=== PATIENT | female | born 1985 | race Caucasian/White ===

== ENCOUNTER 2023-06-20 19:14 | Outpatient (REF) | payer OTHER, SELFPAY ==
[2023-06-26 10:11] LABS: Age Gdln ACOG Testing Note (.); HPV Aptima Negative (Negative); IGP, Aptima HPV, rfx 16/18,45 Note (.)
== END 2023-06-20 19:15 | disposition home or self-care (01) ==
LOC: LAB 19:14
PROVIDERS: Visit Provider Obstetrics & Gynecology
DX: Z01.419 Encounter for gynecological examination (general) (routine) without abnormal findings (principal)
CPT/HCPCS: 87624; G0145

== ENCOUNTER 2023-07-18 08:52 | Outpatient (OUT) | payer OTHER, SELFPAY ==
--- NOTE | 2023-07-18 | US_ITS ---
The [address] [address] Patient Name: FRANCISCO CARTER MRN: [id number] date: 1985 Sex: F Assigned Patient Location: Current Patient Location: Accession/Order Number: [id number] Exam Date: 07/18/2023 08:54 Report Date: 07/18/2023 11:06 At the request of: TALIA BARRY Procedure: US pelvis w/ transvaginal EXAMINATION: US pelvis w/ transvaginal HISTORY: MENORRHAGIA COMPARISON: No relevant comparison available. FINDINGS: The uterus is normal in size, contour and echotexture measuring 9.0 x 5.0 x 5.9 cm. Anteverted, anteflexed. The endometrium measures 1.3 cm The right ovary measures 3.0 x 2.4 x 2.8 cm. Doppler could not be obtained however there was color flow. The left ovary measures 4.5 x 2.9 x 3.0 cm. Irregular area of anechoic echogenicity measuring 2.7 cm, simple cyst. Normal color and Doppler flow. US/US pelvis w/ transvaginal IMPRESSION: 2.7 cm left ovarian collapsing functional or simple cyst The endometrium measures 1.3 cm, correlate with the menstrual cycle Electronically authenticated by: CHAGO EATON Date: 07/18/2023 11:06
== END 2023-07-18 08:53 | disposition home or self-care (01) ==
LOC: US 08:52
PROVIDERS: Visit Provider Obstetrics & Gynecology
DX: N92.1 Excessive and frequent menstruation with irregular cycle (principal); N83.292 Other ovarian cyst, left side
CPT/HCPCS: 76830; 76856

== ENCOUNTER 2024-05-14 15:00 | Outpatient (OUT) | payer OTHER, SELFPAY ==
--- OUTSIDE RECORDS SUMMARY | 2024-05-14 15:17 | XMS_ITS | CCD ---
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 Phone None, No PCP Unavailable Unavailable Ed Malhotra Unavailable Abundio Galdamez Unavailable Delia Allen Unavailable DYLAN Pinto Primary Care Provider MD Ed Malhotra Attending Provider Abundio Galdamez DO Unavailable [phone] Abundio Galdamez DO Unavailable [phone] GENIN, FRANK A Referring Unavailable GENIN, FRANK A Referring Unavailable ED MALHOTRA Attending Unavailable VIJAYA PINTO Primary Care Unavailable ED MALHOTRA Admitting Unavailable MISC, DR UPTON Attending Unavailable VIJAYA PINTO Primary Care Unavailable MISC, DR UPTON Admitting Unavailable MISC, DR UPTON Consulting Unavailable JAMIL, FRANK A Attending Unavailable Vijaya Sheth Primary Care Provi estephanie GENIN, FRANK A Referring Unavailable GENIN, FRANK A Attending Unavailable GENIN, FRANK A Attending Unavailable GENIN, FRANK A Attending Unavailable GENIN, FRANK A Referring Unavailable GENIN, FRANK A Referring Unavailable GENIN, FRANK A Referring Unavailable MARCELINA MCMANUS Attending Unavailable DIVENCENZO, MARLITA Attending Unavailable GENIN, FRANK A Referring Unavailable DIVENCENZO, MARLITA Attending Unavailable GENIN, FRANK A Referring Unavailable DIVENCENZO, MARLITA Attending Unavailable GENIN, FRANK A Referring Unavailable GENIN, FRANK A Attending Unavailable GENIN, FRANK A Referring Unavailable GENIN, FRANK A Referring Unavailable GENIN, FRANK A Attending Unavailable Millie, Vijaya A Primary Care Unavailable Ed Malhotra Attending Unavailable Ed Malhotra Admitting Unavailable MillieDYLAN Vijaya A Primary Care Provider MD Ed Malhotra Attending Provider [phone] RIVKA KOENIG Referring Unavailable MILLIE, VIJAYA A Primary Care Unavailable AMY FLORES Referring Unavailable MILLIE, VIJAYA A Primary Care Unavailable NICHOL BARRETT Attending Unavailable MILLIE, VIJAYA A Referring Unavailable MILLIE, VIJAYA A Primary Care Unavailable KOENIG, RIVKA Attending Unavailable MILLIE, VIJAYA A Referring Unavailable MILLIE, VIJAYA A Primary Care Unavailable KOENIG, RIVKA Attending Unavailable MILLIE, VIJAYA A Referring Unavailable MILLIE, VIJAYA A Primary Care Unavailable MALI MALHOTRA Attending Unavailable Allergies Allergy Classification Reported Allergen(s) Allergy Type Date of Onset Reaction(s) Facility (14 sources) Penicillins; Translations: [Penicillins] Allergy to drug (finding) 08-20-20 Edema, Itching [facility] Other [place] Repository (11 sources) Sulfonamides (Antibiotic); Translations: [Sulfa Drugs] Allergy to drug (finding) Itching, Edema [facility] Work Phone: (20 sources) Penicillin G; Translations: [PENICILLIN G] Drug Allergy 06-16-20 18 [facility] (20 sources) Sulfacetamide / Sulfur Drug Allergy [facility] Other (3 sources) Sulfacetamide; Translations: [sulfacetamide] Drug Allergy 03-13-20 22 [facility] (3 sources) Sulfur; Translations: [sulfur] Drug Allergy 03-13-20 22 [facility] (16 sources) Penicillins Drug Allergy 08-20-20 22 [facility] Work Phone: (20 sources) Sulfonamides (Antibiotic); Translations: [SULFA (SULFONAMIDE ANTIBIOTICS)] Drug Allergy 06-16-20 18 [facility] Work Phone: (1 source) diphenhydrAMINE Drug Allergy 03-10-20 15 [facility] Repository (1 source) Penicillins Drug allergy (disorder) 03-10-20 15 [facility] Repository (1 source) Sulfonamides (Antibiotic) Drug allergy (disorder) 03-10-20 15 [facility] Repository (6 sources) Sulfamethoxazole / Trimethoprim; Translations: [SULFAMETHOXAZOLE-TR IMETHOPRIM] Drug Allergy 06-16-20 18 Hives, Swelling [facility] (1 source) Penicillin Drug Allergy 11-14-19 24 [facility] Repository Medications Current Medications Medication Drug Class(es) Dates Sig (Normalized) Sig (Original) Acetaminophen (1 source) Start: 11-14-2023 Acetaminophen Active MG PO November 14, 2023 12:00am acetaminophen 300 mg / codeine phosphate 30 mg oral tablet (2 sources) Opioid Agonist Start: 05-03-2023 End: 05-10-2023 take 1 tablet by mouth every four hours as needed acetaminophen-codei ne (TYLENOL-COD #3) 300-30 mg per tablet Indications: Lateral epicondylitis of right elbow Take 1 tablet by mouth every 4 hours as needed for up to 7 days. 8 tablet 0 05/03/2023 05/10/2023 Active Start: 12-20-2022 End: 12-25-2022 take 1 tablet by mouth every four hours as needed acetaminophen-codeine (TYLENOL-CODEINE #3) 300-30 mg per tablet Indications: Right elbow pain , Lateral epicondylitis of both elbows Take 1 tablet by mouth every 4 hours as needed for up to 5 days. 12 tablet 0 12/20/2022 12/25/2022 Active Comment on above: Take 1 tablet by royal th every 4 hours as needed for up to 5 days. Take 1 tablet by royal th every 4 hours as needed for up to 7 days. amitriptyline hydrochloride 25 mg oral tablet (17 sources) Tricyclic Antidepressant Start: 023 amitriptyline (ELAVIL) 25 mg tablet TAKE 1/2 TO 1 TABLET BY MOUTH ONCE DAILY AT BEDTIME 30 30 tablet 2 09/12/2022 Active benzoyl peroxide 0.05 mg/mg / clindamycin 0.01 mg/mg topical gel (1 source) Lincosamide Antibacterial Start: 03-28-2 024 clindamycin-benzoyl peroxide (BENZACLIN) gel Apply 1 Application topically daily as needed (acne). 25 g 0 11/28/2023 Active calcium citrate 950 mg / cholecalciferol 250 unt oral tablet (3 sources) Vitamin D Start: take 2 tablets by mouth three times daily calcium citrate-vitamin D3 (CITRACAL PETITES) 200 mg calcium -250 units tablet Indications: Postsurgical malabsorption , Malnutrition following gastrointestinal surgery , History of gastric bypass TAKE TWO TABLETS BY MOUTH THREE TIMES A DAY 180 tablet 11 08/15/2023 Active citalopram 40 mg oral tablet (20 sources) Serotonin Reuptake Inhibitor Start: End: take 1 tablet by mouth once daily in the morning citalopram (CeleXA) 40 mg tablet Indications: Anxiety and depression TAKE ONE TABLET BY MOUTH ONCE DAILY IN THE MORNING 30 tablet 0 03/21/2023 Active Start: 04-20-2021 CeleXA 40 MG O ral Tablet Quantity: 0 Refills: 0 Ordered: 20-Apr-2021 DO Start : 20-Apr-2021 Active Comment on above: Take 40 mg by mouth once daily. docusate sodium 100 mg oral capsule (3 sources) Start: take 1 capsule by mouth twice daily as needed for constipation docusate sodium (COLACE) 100 mg capsule Indications: Constipation, unspecified constipation type Take 1 capsule (100 mg total) by mouth 2 (two) times a day as needed for constipation. 10 capsule 0 05/30/2023 Active etonogestrel 68 mg drug implant (3 sources) Progestin etonogestreL (NEXPLANON) 68 mg implant 1 each (68 mg total) by subdermal route once. 0 Active fluticasone propionate 0.05 mg/actuat metered dose nasal spray (1 source) Corticosteroid Start: take 1 spray(s) nasal route once daily Fluticasone Propionate Active 2 SPRAY INTRANASAL Daily November 11, 2023 12:00am administer into each nostril Naltrexone (3 sources) Opioid Antagonist Start: 023 take 4.5 mg by mouth once daily naltrexone HCl (NALTREXONE ORAL) Take 4.5 mg by mouth nightly. Back pain 0 10/12/2022 Active Ozempic (0.25 or 0.5 MG/DOSE) (20 sources) Ozempic (0.25 or 0.5 MG/DOSE) Active PNV Plus Multivitamin 27-1 MG (14 sources) take 1 tablet by mouth in the morning PNV Plus Multivitamin 27-1 MG TAKE 1 TABLET BY MOUTH IN THE MORNING Oral for 60 Days Active pregabalin (20 sources) Start: Pregabalin Active MG PO November 14, 2023 12:00am Start: 08-29-2023 take 1 capsule by mo uth in the morning, then take 1 capsule by mouth at bedtime pregabalin (LYRICA) 50 mg capsule Indications: Personal history of fibromyalgia , Chronic low back pain with sciatica, sciatica laterality unspecified, unspecified back pain laterality Take 1 capsule (50 mg total) by mouth in the morning and 1 capsule (50 mg total) before bedtime. 60 capsule 0 08/29/2023 Active Start: 02-28-2023 take 1 capsule by mo uth every twelve hours Lyrica 200 MG 1 capsule Orally Twice a day for 30 days Jan, Active Start: 01-10-2023 take 1 capsule by mo uth every twelve hours Lyrica 200 MG 1 capsule Orally Twice a day for 30 days December, Active Start: 09-12-2022 End: 08-29-2023 take 2 capsules by mouth in the morning, then take 2 capsules by mouth at bedtime pregabalin (LYRICA) 100 mg capsule Indications: fibromyalgia Take 2 capsules (200 mg total) by mouth in the morning and 2 capsules (200 mg total) before bedtime. Indications: disorder characterized by stiff, tender & painful muscles. 0 09/12/2022 08/29/2023 Discontinued (Dose adjustment) Start: 03-27-2022 End: 11-11-2023 take 75 mg by mouth twice daily Pregabalin Discontinue d 75 MG PO Twice daily April 17, 2022 12:00am November 11, 2023 11:30am take 1 capsule by mo uth twice daily pregabalin (LYRICA) 100 mg capsule Take 100 mg by mouth twice daily. 0 Active take 1 capsule by mo uth every twelve hours Lyrica 200 MG 1 capsule Orally Twice a day for 30 days Active Comment on above: Take 100 mg by mouth twice daily. (9 sources) Active Ofjociyv-Ozv-Ti-Fa () 1 mg Tablet (2 sources) Start: 04-17-20 take 1 tablet by mouth once daily Cttpszkp-Ccz-Uk-Fa () 1 mg Tablet Active 1 TAB PO Daily April 17, 2022 12:00am vit 10-iron fum-folic 65-1 mg tablet (3 sources) Start: 02-29-20 take 1 tablet by mouth in the morning vit 10-iron fum-folic 65-1 mg tablet Indications: Postsurgical malabsorption , Malnutrition following gastrointestinal surgery , History of gastric bypass Take 1 tablet by mouth in the morning. 90 tablet 3 02/28/2023 Active syringe with needle (BD LUER-PAYAL SYRINGE) 3 mL 25 x 1 1/2 syringe (3 sources) Start: 05-30-20 syringe with needle (BD LUER-PAYAL SYRINGE) 3 mL 25 x 1 1/2 syringe Indications: Malnutrition following gastrointestinal surgery , History of gastric bypass , Postsurgical malabsorption , Vitamin B12 deficiency 1 SYRG by miscellaneous route every 30 (thirty) days. 3 each 1 05/30/2023 Active tiZANidine 4 mg oral tablet (5 sources) Central alpha-2 Adrenergic Agonist Start: 11-14-19 take 4 mg by mouth twice daily Tizanidine Active 4 MG PO Twice daily 60 30 November 14, 2023 10:24am Start: 11-11-2023 End: 11-14-2023 Tizanidine Discontinued MG P O November 11, 2023 12:00am November 14, 2023 10:25am Start: 02-21-2023 tiZANidine (ZA NAFLEX) 4 mg tablet TAKE 12 TO 1 TABLET BY MOUTH ONCE DAILY AT BEDTIME 30 0 02/21/2023 Active topiramate 100 mg oral tablet (20 sources) Start: 03-04-2023 take 1 tablet by mouth once daily topiramate (TOPAMAX) 100 mg tablet Indications: Migraine without aura and without status migrainosus, not intractable Take 1 tablet (100 mg total) by mouth nightly. 90 tablet 2 03/04/2023 Active Start: 11-07-2021 End: 11-11-2023 Topiramate Discontinued 50 M G PO As Directed November 07, 2021 1:00am November 11, 2023 11:32am Start: 04-20-2021 Topamax 100 MG Oral Tablet Quantity: 0 Refills: 0 Ordered: 20-Apr-2021 DO Start : 20-Apr-2021 Active Start: 04-20-2021 take 1 tablet by royal th once daily Topamax 50 MG Oral Tablet TAKE 1 TABLET DAILY. Quantity: 0 Refills: 0 Ordered: 20-Apr-2021 DO Start : 20-Apr-2021 Active vitamin B12 (8 sources) Vitamin B12 Start: 11-11-2023 Cyanocobalamin (Vitamin B-12) Active MCG IM November 11, 2023 12:00am Start: 05-30-2023 cyanocobalamin (VITAMIN B-12) 1,000 mcg/mL injection Indications: Malnutrition following gastrointestinal surgery , History of gastric bypass , Postsurgical malabsorption , Vitamin B12 deficiency Inject 1 mL (1,000 mcg total) into the appropriate muscle every 30 (thirty) days. 3 mL 1 05/30/2023 Active Cyanocobalamin 1 000 MCG/ML INJECT 1 ML (1,000 MCG TOTAL) INTO THE APPROPRIATE MUSCLE EVERY 30 (THIRTY) DAYS. Injection for 30 Days Active zinc gluconate 50 mg oral tablet (2 sources) Start: 11-28-2023 take 1 tablet by mouth in the morning zinc gluconate 50 mg tablet Take 1 tablet (50 mg total) by mouth in the morning. 90 tablet 3 11/28/2023 Active Completed/Discontinued Medications Medication Drug Class(es) Dates Sig (Normalized) Sig (Original) [id number] 200 actuat albuterol 0.09 mg/actuat metered dose inhaler (20 sources) beta2-Adrenergic Agonist Start: 08-06-2019 take 2 puff(s) by inhalation every four hours as needed Albuterol Sulfate HFA 108 (90 Base) MCG/ACT 2 puffs as needed Inhalation every 4 hrs Aug, Not-Taking Start: 08-06-2019 take 2 puff(s) by in halation every four hours as needed Albuterol Sulfate HFA 108 (90 Base) MCG/ACT 2 puffs as needed Inhalation every 4 hrs Aug, Not-Taking atenolol 25 mg oral tablet (20 sources) beta-Adrenergic Lashonda Start: 11-07-2021 End: 11-11-2023 take 25 mg by mouth once daily Atenolol Discontinued 25 MG PO Daily November 07, 2021 1:00am November 11, 2023 11:30am Start: 10-04-2021 Atenolol 25 MG Oral Tablet Quantity: 0 Refills: 0 Ordered: 04-Oct-2021 DO Start : 04-Oct-2021 Active Comment on above: Take 25 mg by mouth once daily. 12 hr buPROPion hydrochloride 150 mg extended release oral tablet (12 sources) Aminoketone Start: End: take 150 mg by mouth once daily Bupropion Hcl Discontinued 150 MG PO Daily November 07, 2021 1:00am November 07, 2021 10:33am Start: 04-20-2021 take 1 tablet by royal th once daily Wellbutrin XL 150 MG Oral Tablet Extended Release 24 Hour TAKE 1 TABLET DAILY DIRECTED. Quantity: 0 Refills: 0 Ordered: 20-Apr-2021 DO Start : 20-Apr-2021 Active cyclobenzaprine hydrochloride 10 mg oral tablet (20 sources) Muscle Relaxant Start: 04-20-2021 take 1 tablet by mouth three times daily as needed Cyclobenzaprine HCl - 10 MG Oral Tablet TAKE 1 TABLET 3 TIMES DAILY NEEDED. Quantity: 0 Refills: 0 Ordered: 20-Apr-2021 DO Start : 20-Apr-2021 Active take 1 tablet by royal every twenty-four hours Cyclobenzaprine HCl 10 MG 1 tablet at bedtime as needed Orally Once a day Not-Taking diclofenac sodium 0.01 mg/mg topical gel (9 sources) Nonsteroidal Anti-inflammatory Drug Start: 05-28-2022 Diclofenac Sodium 1 % apply 1 gram to bilateral elbows Externally 2-4 times a day for 30 days May, Not-Taking doxycycline hyclate 100 mg oral capsule (1 source) Tetracycline-class Drug Start: 11-11-2023 End: 11-14-2023 take 100 mg by mouth twice daily Doxycycline Hyclate Discontinued 100 MG PO Twice daily 21 06November 11, 2023 12:00am November 14, 2023 9:16am EPINEPHrine 0.01 mg/ml / lidocaine hydrochloride 10 mg/ml injectable solution (1 source) Antiarrhythmic, alpha-Adrenergic Agonist, beta-Adrenergic Agonist, Catecholamine, Amide Local Anesthetic Start: 05-03-2023 End: 05-03-2023 lidocaine 1%-EPINEPHrine 1:100,000 2 mL injection famotidine 20 mg oral tablet (11 sources) Histamine-2 Receptor Antagonist Start: 04-20-2021 take 1 tablet by mouth twice daily Pepcid 20 MG Oral Tablet TAKE 1 TABLET TWICE DAILY. Quantity: 0 Refills: 0 Ordered: 20-Apr-2021 DO Start : 20-Apr-2021 Active 10 ml lidocaine hydrochloride 10 mg/ml injection (1 source) Antiarrhythmic, Amide Local Anesthetic Start: 12-20-2022 End: 12-20-2022 lidocaine (PF) 10 mg/mL (1 %) 2 mL injection (XYLOCAINE) Start: 12-20-2022 End: 12-20-2022 lidocaine (PF) 10 mg/mL (1 % ) 2 mL injection (XYLOCAINE) metFORMIN hydrochloride 500 mg oral tablet (2 sources) Biguanide Start: 11-07-2021 End: 03-13-2022 Metformin Discontinued 500 MG PO As Directed November 07, 2021 1:00am March 13, 2022 7:22am methylPREDNISolone 4 mg oral tablet (20 sources) Corticosteroid Start: 11-11-2023 End: 11-14-2023 take 1 tablet by mouth once Methylprednisolone (Medrol (Michael)) 4 mg tablets,dose pack Discontinued 0 PO per package directions 1 November 11, 2023 12:00am November 14, 2023 9:16am PO PER PKG DIR for 6 days Start: 02-14-2023 methylPREDNISo lone (MEDROL DOSE-PACK) 4 mg Dose-Pack As Instructed per package 1 tablet 0 02/14/2023 Active Start: 03-19-2022 Medrol 4 MG as directed Orally for 6 days Mar, Not-Taking Comment on above: As Instructed per shayy haji naproxen 375 mg oral tablet (20 sources) Nonsteroidal Anti-inflammatory Drug Start: 09-11-2021 End: 11-11-2023 Naproxen Discontinued 375 MG PO As Directed November 07, 2021 1:00am November 11, 2023 11:30am omeprazole 20 mg delayed release oral capsule (20 sources) Proton Pump Inhibitor Start: 11-07-2021 End: 11-11-2023 Omeprazole Discontinued 20 MG PO As Directed November 07, 2021 1:00am November 11, 2023 11:30am Start: 04-20-2021 take 1 tablet by royal twice daily [facility] Omeprazole 20 MG Oral Tablet Delayed Release Take 1 tablet twice daily Quantity: 0 Refills: 0 Ordered: 20-Apr-2021 DO Start : 20-Apr-2021 Active Start: 03-30-2021 take 1 capsule by mo [facility] once daily Omeprazole 40 MG 1 capsule 30 minutes before morning meal Orally Once a day Mar, Active Comment on above: Take 40 mg by mouth once daily. vits 4/iron fum/folic (-H ORAL) (16 sources) vits 4/ iron fum/folic (-H ORAL) Take by mouth once daily. 0 Active Comment on above: Take by mouth once d aily. 20 ml ropivacaine hydrochloride 5 mg/ml injection (1 source) Amide Local Anesthetic Start: 05-03-2023 End: 05-03-2023 ROPivacaine (PF) 5 mg/mL (0.5 %) 4 mL injection (NAROPIN) 0.25 mg, 0.5 mg dose 1.5 ml semaglutide 1.34 mg/ml pen injector (4 sources) Start: 11-07-2021 End: 03-13-2022 Semaglutide (Ozempic) 0.25 mg or 0.5 mg(2 mg/1.5 mL) pen injector Discontinued 0.25 MG SUBCUT As Directed November 07, 2021 1:00am March 13, 2022 7:22am Start: 10-04-2021 Ozempic (0.25 or 0.5 MG/DOSE) 2 MG/1.5ML Subcutaneous Solution Pen-injector Quantity: 0 Refills: 0 Ordered: 04-Oct-2021 DO Start : 04-Oct-2021 Active triamcinolone acetonide 40 mg/ml injectable suspension (20 sources) Corticosteroid Start: 03-19-2022 Kenalog-40 Mar, 40 mg Start: 09-11-2021 Kenalog -40 mg Sep, 40 mg Start: 03-30-2021 Kenalog -40 mg Mar, 40 mg ubrogepant 50 mg oral tablet (2 sources) Start: 11-07-2021 End: 11-11-2023 Ubrogepant (Ubrelvy) 50 mg t ablet Discontinued 50 MG PO As Directed November 07, 2021 1:00am November 11, 2023 11:32am Problems Active Problems Problem Classification Problem Date Documented Da te Episodic/Chronic Administrative/social admission (4 sources) Patient encounter status; Translations: [Dietary counseling and surveillance] Onset: 02-20-2021 Resolved: 10-02-2021 10-02-2021 Episodic Asthma (11 sources) Exercise-induced asthma; Translations: [Exercise induced bronchospasm] Chronic Complications of surgical procedures or medical care (11 sources) Post-surgical malabsorption; Translations: [Postsurgical malabsorption, not elsewhere classified] Onset: 02-28-2023 08-29-2023 Chronic Diabetes mellitus without complication (11 sources) Prediabetes; Translations: [Other abnormal glucose] Episodic Headache; including migraine (16 sources) Migraine; Translations: [Migraine, unspecified, without mention of intractable migraine without mention of status migrainosus] Onset: 11-03-2020 10-19-2021 Chronic Hypertension complicating ; childbirth and the puerperium (3 sources) Chronic hypertension complicating AND/OR reason for care during ; Translations: [Unspecified pre-existing hypertension complicating , unspecified trimester] Onset: 08-11-2018 Resolved: 11-03-2020 11-03-2020 Chronic Menstrual disorders (11 sources) Menorrhagia; Translations: [Excessive or frequent menstruation] Chronic Other connective tissue disease (11 sources) Tendinitis; Translations: [Enthesopathy of unspecified site] Episodic Other connective tissue disease (13 sources) Fibromyalgia; Translations: [Myalgia and myositis, unspecified] Episodic Other connective tissue disease (11 sources) Disease suspected; Translations: [Other symptoms involving nervous and musculoskeletal systems] Episodic Other connective tissue disease (5 sources) Lateral epicondylitis of bilateral humerus; Translations: [Lateral epicondylitis, right elbow] Episodic Other gastrointestinal disorders (12 sources) History of bariatric surgical procedure; Translations: [Bariatric surgery status] 11-29-2023 Episodic Other gastrointestinal disorders (1 source) Drug-induced constipation; Translations: [Drug induced constipation] 08-29-2023 Episodic Other gastrointestinal disorders (6 sources) History of bypass of stomach; Translations: [Bariatric surgery status] Onset: 02-28-2023 08-29-2023 Episodic Other lower respiratory disease (11 sources) Snoring; Translations: [Other respiratory abnormalities] Episodic Other nervous system disorders (20 sources) Chronic pain; Translations: [Other chronic pain] 11-12-2023 Chronic Other nervous system disorders (13 sources) Other chronic pain; Translations: [Other chronic pain] Onset: 08-11-2018 Resolved: 04-24-2022 Chronic Other non-traumatic joint disorders (19 sources) Hip pain; Translations: [Pain in unspecified hip] Episodic Other non-traumatic joint disorders (2 sources) Pain in right hip; Translations: [Pain in joint, pelvic region and thigh] Onset: 11-14-2023 11-14-2023 Episodic Other nutritional; endocrine; and metabolic disorders (11 sources) Metabolic syndrome X; Translations: [Dysmetabolic syndrome X] Chronic Other nutritional; endocrine; and metabolic disorders (20 sources) Severe obesity; Translations: [Morbid (severe) obesity due to excess calories] Chronic Other nutritional; endocrine; and metabolic disorders (20 sources) Morbid obesity; Translations: [Body mass index (BMI) 60.0-69.9, adult] Chronic Other nutritional; endocrine; and metabolic disorders (1 source) Morbid (severe) obesity due to excess calories Onset: 03-19-2022 Resolved: 03-19-2022 Chronic Other nutritional; endocrine; and metabolic disorders (1 source) Excess panniculus of abdomen; Translations: [Localized adiposity] 11-28-2023 Chronic Other nutritional; endocrine; and metabolic disorders (1 source) Localized adiposity; Translations: [Localized adiposity] 11-28-2023 Chronic Other nutritional; endocrine; and metabolic disorders (1 source) Localized adiposity; Translations: [Localized adiposity] Onset: 11-28-2023 Chronic Other skin disorders (2 sources) Acne; Translations: [Acne, unspecified] Onset: 11-29-2023 11-29-2023 Episodic Other upper respiratory infections (1 source) Chronic sinusitis, unspecified; Translations: [Unspecified sinusitis (chronic)] 11-11-2023 Chronic Residual codes; unclassified (4 sources) Sleep apnea; Translations: [Sleep apnea, unspecified] Onset: 02-15-2022 Chronic Residual codes; unclassified (2 sources) Sleep apnea, unspecified; Translations: [Sleep apnea, unspecified type] Onset: 08-20-2022 Chronic Residual codes; unclassified (1 source) Other sleep apnea; Translations: [OTHER SLEEP APNEA] Onset: 05-08-2022 Chronic Spondylosis; intervertebral disc disorders; other back problems (20 sources) Intervertebral disc prolapse; Translations: [Displacement of intervertebral disc, site unspecified, without myelopathy] Onset: 09-14-2021 Resolved: 04-24-2022 Chronic Thyroid disorders (20 sources) Polina thyroiditis; Translations: [Chronic lymphocytic thyroiditis] Onset: 11-03-2020 08-29-2023 Chronic Unclassified (3 sources) GASTR-ESOPH RFLX DS ESPHGTS W/O BLD; Translations: [GASTR-ESOPH RFLX DS ESPHGTS W/O BLD] Onset: 05-08-2022 Unclassified (1 source) Elevation of levels of liver transaminase levels; Translations: [Elevation of levels of liver transaminase levels] Onset: 05-30-2023 Unclassified (1 source) Post-op Onset: 11-28-2023 Past or Other Problems Problem Classification Problem Date Documented Da te Episodic/Chronic Anxiety disorders (17 sources) Mixed anxiety and depressive disorder; Translations: [Dysthymic disorder] Onset: 1 Resolved: 3 Chronic Esophageal disorders (14 sources) Gastroesophageal reflux disease; Translations: [Esophageal reflux] Onset: 1 Resolved: 3 02-28-2023 Chronic Essential hypertension (6 sources) Benign essential hypertension; Translations: [Benign essential hypertension] Onset: 2 Resolved: 3 03-04-2023 Chronic Fluid and electrolyte disorders (3 sources) Dehydration; Translations: [Dehydration] Onset: 3 12-10-2022 Episodic Mood disorders (3 sources) Mood disorders Onset: 3 03-04-2023 Nutritional deficiencies (3 sources) Cobalamin deficiency; Translations: [Deficiency of other specified B group vitamins] Onset: 3 05-30-2023 Episodic Other complications of (3 sources) Thyroid disease in mother complicating , childbirth AND/OR puerperium; Translations: [Endocrine, nutritional and metabolic diseases complicating , unspecified trimester] Onset: 8 Resolved: 1 11-03-2020 Episodic Other complications of (3 sources) Depressive disorder in mother complicating ; Translations: [Other mental disorders complicating , unspecified trimester] Onset: 8 Resolved: 1 11-03-2020 Episodic Other complications of (3 sources) Anxiety in ; Translations: [Other mental disorders complicating , unspecified trimester] Onset: 8 Resolved: 1 11-03-2020 Episodic Other connective tissue disease (4 sources) Lateral epicondylitis, left elbow; Translations: [Lateral epicondylitis of both elbows] Onset: 2 Resolved: 2 Episodic Other connective tissue disease (5 sources) Lateral epicondylitis, right elbow; Translations: [Lateral epicondylitis of both elbows] Onset: 2 Resolved: 2 Episodic Other connective tissue disease (2 sources) Fibromyalgia; Translations: [Fibromyalgia] Onset: 2 Episodic Other connective tissue disease (12 sources) Lateral epicondylitis of right humerus; Translations: [Lateral epicondylitis, right elbow] Onset: 3 Episodic Other connective tissue disease (4 sources) H/O: musculoskeletal disease; Translations: [Personal history of other diseases of the musculoskeletal system and connective tissue] Onset: 1 08-29-2023 Episodic Other connective tissue disease (3 sources) Muscle pain; Translations: [Myalgia, unspecified site] Onset: 1 11-03-2020 Episodic Other connective tissue disease (3 sources) Tendinitis of left elbow; Translations: [Other enthesopathies, not elsewhere classified] Onset: 1 Resolved: 2 10-02-2021 Episodic Other connective tissue disease (1 source) Personal history of other diseases of the musculoskeletal system and connective tissue; Translations: [Personal history of other diseases of the musculoskeletal system and connective tissue] Onset: 1 Episodic Other ear and sense organ disorders (3 sources) Pain of ear structure; Translations: [Otalgia, bilateral] Onset: 1 Resolved: 2 10-02-2021 Episodic Other gastrointestinal disorders (3 sources) Constipation; Translations: [Constipation, unspecified] Onset: 3 05-30-2023 Episodic Other gastrointestinal disorders (2 sources) Bariatric surgery status; Translations: [Bariatric surgery status] Onset: 3 Episodic Other liver diseases (3 sources) Enzyme level - finding; Translations: [Elevated transaminase level] Onset: 3 05-30-2023 Episodic Other nervous system disorders (3 sources) H/O: migraine; Translations: [Personal history of other diseases of the nervous system and sense organs] Onset: 8 Resolved: 1 11-03-2020 Episodic Other non-traumatic joint disorders (2 sources) Pain in unspecified hip Onset: 2 Resolved: 2 Episodic Other non-traumatic joint disorders (4 sources) Pain in left elbow; Translations: [Left elbow pain] Onset: 2 Resolved: 2 Episodic Other non-traumatic joint disorders (17 sources) Pain in elbow; Translations: [Pain in left elbow] Onset: 3 Episodic Other non-traumatic joint disorders (2 sources) Pain in right elbow; Translations: [Right elbow pain] Onset: 2 Episodic Other nutritional; endocrine; and metabolic disorders (14 sources) Body mass index 40+ - severely obese; Translations: [Morbid obesity] Onset: 3 Resolved: 3 03-04-2023 Chronic Other nutritional; endocrine; and metabolic disorders (3 sources) Obese class I; Translations: [Obesity, unspecified] Onset: 3 Resolved: 3 05-30-2023 Chronic Other nutritional; endocrine; and metabolic disorders (3 sources) Weight gain; Translations: [Abnormal weight gain] Onset: 2 Resolved: 3 03-04-2023 Episodic Other upper respiratory infections (7 sources) Acute maxillary sinusitis; Translations: [Acute maxillary sinusitis, unspecified] Onset: 1 Resolved: 2 10-02-2021 Episodic Residual codes; unclassified (3 sources) At risk of disease; Translations: [Other specified personal risk factors, not elsewhere classified] Onset: 3 12-10-2022 Episodic Spondylosis; intervertebral disc disorders; other back problems (20 sources) Spasm of back muscles; Translations: [Other symptoms referable to back] Onset: 8 Resolved: 2 Episodic Sprains and strains (3 sources) Sprain of left wrist; Translations: [Unspecified sprain of left wrist, initial encounter] Onset: 1 Resolved: 2 10-02-2021 Episodic Unclassified (20 sources) Other low back pain; Translations: [Other low back pain] Unclassified (6 sources) Other low back pain M54.59 Onset: 2 Resolved: 2 Unclassified (1 source) GASTR-ESOPH RFLX DS ESPHGTS W/O BLD; Translations: [GASTR-ESOPH RFLX DS ESPHGTS W/O BLD] Onset: 2 Results Test Name Value Interpretation Reference Range Facility CALCIUMon 11-25-2023 Calcium [Mass/Vol] 8.8 mg/dL Normal 8.5-10.5 [facility] Comment on above: Performed By: #### C BCA, LIVR, 68888-9, 2498-4, 2731-8, 2284- 8, 2132-9, 58829-2 #### [facility] ([id number]) [address] [place] [address], [address] [place] [address] CBC AND AUTO DIFFon 11-25-19 24 ABSOLUTE BASOPHIL 0.0 X10E9/L Normal 0.0-0.2 [facility] Comment on above: Performed By: #### C BCA, LIVR, 59950-7, 2498-4, 2731-8, 2284- 8, 2132-9, 97879-7 #### [facility] ([id number]) [facility], [address] [place] [address] ABSOLUTE NEUTROPHIL 3.8 X10E9/L Normal 1.5-6.6 [facility] Comment on above: Performed By: #### C BCA, LIVR, 22308-3, 2498-4, 2731-8, 2284- 8, 2132-9, 98843-9 #### [facility] ([id number]) [address], [address] [place] [address] Basophils/100 WBC (Bld) 0.4 % Normal [facility] Comment on above: Performed By: #### C BCA, LIVR, 77215-3, 2498-4, 2731-8, 2284- 8, 2132-9, 92918-2 #### [facility] ([id number]) [address], [address] [place] [address] Eosinophils (Bld) [#/Vol] 0.1 10*3/uL Normal 0.0-0.4 [facility] Comment on above: Performed By: #### C BCA, LIVR, 33609-3, 2498-4, 2731-8, 2284- 8, 2132-9, 64939-4 #### [facility] ([id number]) [address], [address] [place] [address] Eosinophils/100 WBC (Bld) 1.9 % Normal [facility] Comment on above: Performed By: #### C BCA, LIVR, 83455-7, 2498-4, 2731-8, 2284- 8, 2132-9, 65824-9 #### [facility] ([id number]) [address], [address] [place] [address] Erythrocyte distribution width (RBC) [Ratio] 13.9 % Normal 11.5-15.0 [facility] Comment on above: Performed By: #### C BCA, LIVR, 49720-0, 2498-4, 2731-8, 2284- 8, 2132-9, 01822-9 #### [facility] ([id number]) [address], [address] [place] [address] Hematocrit (Bld) [Volume fraction] 37.1 % Normal 35-47 [facility] Comment on above: Performed By: #### C BCA, LIVR, 21905-5, 2498-4, 2731-8, 2284- 8, 2132-9, 79788-0 #### [facility] ([id number]) [address], [address] [place] [address] Hemoglobin (Bld) [Mass/Vol] 12.2 g/dL Normal 11.7-15.5 [facility] Comment on above: Performed By: #### C BCA, LIVR, 39669-2, 2498-4, 2731-8, 2284- 8, 2132-9, 92237-9 #### [facility] ([id number]) [address] [address] [place] [address] Lymphocytes (Bld) [#/Vol] 1.4 10*3/uL Normal 1.0-3.5 [facility] Comment on above: Performed By: #### C BCA, LIVR, 77244-2, 2498-4, 2731-8, 2284- 8, 2132-9, 96437-2 #### [facility] ([id number]) [address] [address] [place] [address] Lymphocytes/100 WBC (Bld) 25.7 % Normal [facility] Comment on above: Performed By: #### C BCA, LIVR, 92321-0, 2498-4, 2731-8, 2284- 8, 2132-9, 16448-5 #### [facility] ([id number]) [address] [address] [place] [address] MCH (RBC) [Entitic mass] 30.0 pg Normal 27-34 [facility] Comment on above: Performed By: #### C BCA, LIVR, 60842-5, 2498-4, 2731-8, 2284- 8, 2132-9, 59227-1 #### [facility] ([id number]) [address], [address] [place] [address] MCHC (RBC) [Mass/Vol] 33.0 g/dL Normal 32-36 [facility] Comment on above: Performed By: #### C BCA, LIVR, 87891-2, 2498-4, 2731-8, 2284- 8, 2132-9, 23757-8 #### [facility] ([id number]) [address], [facility] [address] [place] [address] MCV (RBC) [Entitic vol] 91 fL Normal 80-100 [facility] Comment on above: Performed By: #### C BCA, LIVR, 93408-6, 2498-4, 2731-8, 2284- 8, 2132-9, 35250-6 #### [facility] ([id number]) [address], [address] [place] [address] Monocytes (Bld) [#/Vol] 0.3 10*3/uL Normal 0-0.9 [facility] Comment on above: Performed By: #### C BCA, LIVR, 38065-9, 2498-4, 2731-8, 2284- 8, 2132-9, 95739-1 #### [facility] ([id number]) [address], [address] [place] [address] Monocytes/100 WBC (Bld) 5.0 % Normal [facility] Comment on above: Performed By: #### C BCA, LIVR, 10843-4, 2498-4, 2731-8, 2284- 8, 2132-9, 69875-1 #### [facility] ([id number]) [address], [address] [place] [address] Neutrophils/100 WBC (Bld) 67.0 % Normal [facility] Comment on above: Performed By: #### C BCA, LIVR, 16627-9, 2498-4, 2731-8, 2284- 8, 2132-9, 73368-7 #### [facility] ([id number]) [address], [address] [place] [address] Platelet mean volume (Bld) [Entitic vol] 8.3 fL Normal 7-12 [facility] Comment on above: Performed By: #### C BCA, LIVR, 85382-5, 2498-4, 2731-8, 2284- 8, 2132-9, 40801-1 #### [facility] ([id number]) [address] [address] [place] [address] Platelets (Bld) [#/Vol] 309 10*3/uL Normal 150-450 [facility] Comment on above: Performed By: #### C BCA, LIVR, 03619-5, 2498-4, 2731-8, 2284- 8, 2132-9, 78653-4 #### [facility] ([id number]) [address] [address] [place] [address] RBC COUNT 4.08 X10E12/L Normal 3.80-5.20 [facility] Comment on above: Performed By: #### C BCA, LIVR, 68302-8, 2498-4, 2731-8, 2284- 8, 2132-9, 10901-3 #### [facility] ([id number]) [address] [address] [place] [address] WBC (Bld) [#/Vol] 5.6 10*3/uL Normal 4.0-11.0 [facility] Comment on above: Performed By: #### C BCA, LIVR, 58865-1, 2498-4, 2731-8, 2284- 8, 2132-9, 01867-7 #### [facility] ([id number]) [address], [address] [place] [address] Copper [Mass/Vol]on 11-25-19 24 COPPER 88 ug/dL Normal 80-155 [facility] Comment on above: Result Comment: NOTE This test was developed and its performance characteristics determined by [facility] [place] ([facility]). It has not been cleared or approved by the FDA. [facility] is regulated under CLIA as qualified to perform high-complexity testing. This test is used for clinical purposes. It should not be regarded as investigational or for research. Test Performed By: [place] [address] Car Construction Superintendent: Travon Jose III, M.D. CLIA #[id number] Performed By: #### L IVR, TSHR #### [facility] ([id number]) [address] [facility], [address] [place] [address] Folate [Mass/Vol]on 11-25-19 24 FOLIC ACID >25.0 Normal >5.8 [facility] Comment on above: Result Comment: NEW REFERENCE RANGE Performed By: #### C BCA, LIVR, 24106-0, 2498-4, 2731-8, 2284-8, 2132-9, 91268-3 #### [facility] ([id number]) [address], [address] [place] [address] IRONon 11-25-2023 Iron [Mass/Vol] 109 ug/dL Normal 50-170 [facility] Comment on above: Performed By: #### C BCA, LIVR, 17491-3, 2498-4, 2731-8, 2284- 8, 2132-9, 87915-4 #### [facility] ([id number]) [address] [facility], [address] [place] [address] LIVER PANELon 11-25-2023 Albumin [Mass/Vol] 3.9 g/dL Normal 3.2-5.3 [facility] Comment on above: Performed By: #### C BCA, LIVR, 75316-9, 2498-4, 2731-8, 2284- 8, 2132-9, 90534-1 #### [facility] ([id number]) [address], [address] [place] [address] ALP [Catalytic activity/Vol] 70 U/L Normal 39-130 [facility] Comment on above: Performed By: #### C BCA, LIVR, 09724-3, 2498-4, 2731-8, 2284- 8, 2132-9, 38564-9 #### [facility] ([id number]) [address], [address] [place] [address] ALT [Catalytic activity/Vol] 37 U/L High 0-31 [facility] Comment on above: Performed By: #### C BCA, LIVR, 44153-3, 2498-4, 2731-8, 2284- 8, 2132-9, 03096-9 #### [facility] ([id number]) [address], [address] [place] [address] AST [Catalytic activity/Vol] 19 U/L Normal 0-41 [facility] Comment on above: Performed By: #### C BCA, LIVR, 28528-7, 2498-4, 2731-8, 2284- 8, 2132-9, 26626-3 #### [facility] ([id number]) [address], [address] [place] [address] Bilirubin [Mass/Vol] 0.4 mg/dL Normal 0.3-1.2 [facility] Comment on above: Performed By: #### C BCA, LIVR, 57715-2, 2498-4, 2731-8, 2284- 8, 2132-9, 00902-8 #### [facility] ([id number]) [address], [address] [place] [address] Bilirubin.direct [Mass/Vol] 0.1 mg/dL Normal 0.0-0.4 [facility] Comment on above: Performed By: #### C BCA, LIVR, 38713-7, 2498-4, 2731-8, 2284- 8, 2132-9, 12836-6 #### [facility] ([id number]) [address], [address] [place] [address] Protein [Mass/Vol] 6.8 g/dL Normal 6.0-8.0 [facility] Comment on above: Performed By: #### C BCA, LIVR, 91144-3, 2498-4, 2731-8, 2284- 8, 2132-9, 14232-7 #### [facility] ([id number]) [address], [address] [place] [address] Parathyrin.intact [Mass/Vol] on 11-25-2023 PTH INTACT 43 pg/mL Normal 12-88 [facility] Comment on above: Performed By: #### C BCA, LIVR, 91744-8, 2498-4, 2731-8, 2284- 8, 2-9, 51203-2 #### [facility] ([id number]) [address], [address] [place] [address] VITAMIN B12on 11-25-2023 Cobalamin (Vitamin B12) [Mass/Vol] 482 pg/mL Normal 180-914 [facility] Comment on above: Performed By: #### C BCA, LIVR, 61002-0, 2498-4, 2731-8, 2284- 8, 2-9, 49088-6 #### [facility] ([id number]) [address], [address] [place] [address] Vitamin D+Metabolites [Mass/ Vol]on 11-25-2023 VITAMIN D 25 HYD TOT 37.6 ng/mL Normal 30-100 [facility] Comment on above: Result Comment: Vitamin D status 25 [place] Vitamin D Deficiency <20 ng/mL Insufficiency 20-29 ng/mL Sufficiency 30-100 ng/mL Toxicity >100 ng/mL NOTE: A pediatric reference range has not been established by the indoor landscape architect of this kit. The [place] [employer] recommends a Vitamin D level of = or >20ng/mL in infants and children. Performed By: #### C BCA, LIVR, 51986-3, 2498-4, 2731-8, 2284-8, 2132-9, 76494-0 #### [facility] ([id number]) [address] [facility], [address] [place] [address] Zinc [Mass/Vol]on 11-25-2023 ZINC 59 ug/dL Low 60-120 [facility] Comment on above: Result Comment: NOTE This test was developed and its performance characteristics determined by [facility] [place] ([facility]). It has not been cleared or approved by the FDA. [facility] is regulated under CLIA as qualified to perform high-complexity testing. This test is used for clinical purposes. It should not be regarded as investigational or for research. Test Performed By: [facility] [address] [place] [address] Car Construction Superintendent: Travon Jose III, M.D. CLIA #[id number] Performed By: #### L IVR, TSHR #### [facility] ([id number]) [address] [facility], [address] [place] [address] XR hip RT min 2V(w/wo pelvis )*on 11-14-2023 XR hip RT min 2V(w/wo pelvis)* [facility] Main [place] [address] [place] [address] XRay Report Signed Patient: Michelle Rivera MR#: [id number] [birth year] : 1985 Acct:[id number] Age/Sex: 38 / F ADM Date: 11/14/23 Loc: [facility] Room: Type: [facility] Attending Dr: Ed Malhotra MD Copies to: Ed Malhotra MD Ordering Provider: Ed Malhotra MD Date of Service: 11/14/23 XR/XR hip RT min 2V(w/wo pelvis)*: M25.551 - Pain in right hip XR hip RT min 2V(w/wo pelvis)* 11/14/2023 9:52 AM SIGNS AND SYMPTOMS: Low back pain radiating into right hip PROTOCOL: Frontal radiograph the pelvis with frog-leg view of the right hip COMPARISON: None FINDINGS: The joint spaces are preserved. There is no evidence of fracture or dislocation. The bony ring of the pelvis is intact. XR/XR hip RT min 2V(w/wo pelvis)* IMPRESSION: No fracture or dislocation. No significant degenerative change. Impression dictated by: Gordo Escalante M.D.11/14/2023 2:25 PM Dictation Location: [place] [address] Transcribed By: [facility] 11/14/23 142 Dictated By: Gordo Escalante II, MD 11/14/23 142 Signed By: 11/14/23 142 Normal [facility] XR lumbar spine AP/LAT/FLX/E XTon 11-14-2023 XR lumbar spine AP/LAT/FLX/EXT [facility] [place] [address] [place] [address] XRay Report Signed Patient: Michelle Rivera MR#: [id number] 82 : 1985 Acct:[id number] Age/Sex: 38 / F ADM Date: 11/14/23 Loc: [facility] Room: Type: [facility] Attending Dr: Ed Malhotra MD Copies to: Ed Malhotra MD Ordering Provider: Ed Malhotra MD Date of Service: 11/14/23 XR/XR lumbar spine AP/LAT/FLX/EXT: M47.817 - Spondylosis without myelopathy or radiculopathy... XR lumbar spine AP/LAT/FLX/EXT 11/14/2023 9:52 AM SIGNS AND SYMPTOMS: Low back pain radiating into right hip PROTOCOLS: Frontal, lateral, and flexion-extension views of the lumbar spine COMPARISON: 09/11/2019 FINDINGS: The alignment, development and bony structures are normal. There is no fracture or destructive lesion. There is moderate disc height loss at L5-S1. There is facet hypertrophy throughout the lumbar spine. The sacrum and sacroiliac joints are normal. XR/XR lumbar spine AP/LAT/FLX/EXT IMPRESSION: There is no fracture or subluxation. Degenerative facet noted, greatest at L5-S1. Impression dictated by: Gordo Escalante M.D.11/14/2023 2:23 PM Dictation Location: [place] [address] Transcribed By: [facility] 11/14/23 1423 Dictated By: Gordo Escalante II, MD 11/14/23 1421 Signed By: 11/14/23 1423 Normal [facility] Influenza virus B Ag [Presen ce] in Upper respiratory specimen by Rapid immunoassayon 11-11-2023 FLUBV Ag IA.rapid Ql (Nph) Negative [facility] No Panel Informationon 11-10 Influenza Type A (Rapid) Negative [facility] POC SARS CoV-2 Antigen Negative [facility] No Panel InformationOrdered By: Lissa Gifford on 11-11-2023 Quick Strep (POC) [facility] LIVER PANELon 08-29-2023 Albumin [Mass/Vol] 4.0 g/dL Normal 3.2-5.3 [facility] Comment on above: Performed By: #### L IVR, TSHR #### [facility] ([id number]) [address], [address] [place] [address] ALP [Catalytic activity/Vol] 83 U/L Normal 39-130 [facility] Comment on above: Performed By: #### L IVR, TSHR #### [facility] ([id number]) [address], [address] [place] [address] ALT [Catalytic activity/Vol] 29 U/L Normal 0-31 [facility] Comment on above: Performed By: #### L IVR, TSHR #### [facility] ([id number]) [address], [address] [place] [address] AST [Catalytic activity/Vol] 16 U/L Normal 0-41 [facility] Comment on above: Performed By: #### L IVR, TSHR #### [facility] ([id number]) [address], [address] [place] [address] Bilirubin [Mass/Vol] 0.5 mg/dL Normal 0.3-1.2 [facility] Comment on above: Performed By: #### L IVR, TSHR #### [facility] ([id number]) [address], [address] [place] [address] Bilirubin.direct [Mass/Vol] 0.1 mg/dL Normal 0.0-0.4 [facility] Comment on above: Performed By: #### L IVR, TSHR #### [facility] ([id number]) [address], [address] [place] [address] Protein [Mass/Vol] 6.6 g/dL Normal 6.0-8.0 [facility] Comment on above: Performed By: #### L IVR, TSHR #### [facility] ([id number]) [address], [address] [place] [address] TSH WITH REFLEXon 08-29-2023 TSH 1.17 uIU/mL Normal 0.49-4.67 [facility] Comment on above: Performed By: #### L IVR, TSHR #### [facility] ([id number]) [address], [address] [place] [address] CNPIdalia 07-05-2023 CNPN Telephone (ORAVON) MICHELLE RIVERA ([id number]) 1985 F Date Time Provider Department 07/05/23 FRANK NEGRON During your visit today, we recorded the following information about you: Yamile Castelan 07/05/2023 3:37 PM Signed I have tried to reach patient multiple times. Phone goes to [employer] I sent 2 my chart messages. I had a spot on hold for 07/15 for quite awhile. I had to remove the hold to offer to another patient. Yamile Salasbetsy Allergies As of Date: 07/05/2023 Noted Allergy Reaction PENICILLINS 08/20/2022 4 - Hives SULFA (SULFONAMIDE ANTIBIOTICS) 08/20/2022 4 - Hives Date Reviewed: 05/03/2023 Reviewed by: Rajiv Agarwal-BENITA Tsai - Fully Assessed Prescriptions as of 07/05/2023 - methylPREDNISolone (MEDROL DOSE-PACK) 4 mg Dose-Pack As Instructed per package - pregabalin (LYRICA) 100 mg capsule Take 100 mg by mouth twice daily. - citalopram (CELEXA) 40 mg tablet Take 40 mg by mouth once daily. - atenolol (TENORMIN) 25 mg tablet Take 25 mg by mouth once daily. - vits 4/iron fum/folic (-H ORAL) Take by mouth once daily. - omeprazole (PRILOSEC) 40 mg capsule Take 40 mg by mouth once daily. Problem List As Of Date 07/05/2023 Noted Resolved Right elbow pain [M25.521] 02/22/2023 Lateral epicondylitis of right elbow [M77.11] 02/22/2023 Encounter Status:Closed by YAMILE CASTELAN on 07/05/23 [facility] CNOVon 05-03-2023 CNOV Office Visit (ORAVON ) MICHELLE RIVERA ([id number]) 1985 F Date Time Provider Department 05/03/23 9:45 AM FRANK NEGRON During your visit today, we recorded the following information about you: Weight Height 77.6 kg 1.664 m Frank Negron DO 05/03/2023 10:17 AM Signed Lateral epicondylitis of right elbow (primary encounter diagnosis) Minimally Invasive Tenotomy Informed Consent Consent Obtained: Written [place] Protocol A moment to CARE was completed. SIGN IN Personnel directly involved with the procedure wore the appropriate PPE. Patient/Surrogate Stated/Verified: Patient name, Date of , Relevant allergies and Intended procedure TIME OUT Intended patient and procedure match the source document(s). Consent documented and matches the intended procedure. Relevant labs, photos, and/or imaging studies have been reviewed. Correct side/site marked and visible. Medications required for procedure verified. Fire risk assessed and interventions discussed. 05/03/2023 10:16 AM The procedure site was prepped in the usual sterile fashion. Site: Right common extensor tendon Details:Musculoskeletal ultrasound was utilized to successfully localize placement of the injection needle at the appropriate site. Ultrasound images demonstrating local vasculature and demonstrating injection of solution were saved. Anesthetics: 2 mL lidocaine 1%-EPINEPHrine 1:100,000 1 %-1:100,000; 4 mL ROPivacaine (PF) 5 mg/mL (0.5 %) Minimally Invasive Tenotomy (TenJet) The treatment area was cleaned and draped in sterile fashion. Using sterile technique, musculoskeletal ultrasound (MSK-US) was used to successfully localize the area of pathology to be treated today. A gordo with a sterile marker was placed on the skin in the area of the intended incision site. Using sterile technique, the area of treatment was visualized under MSK-US where infiltration of anesthetic was utilized with a guiding needle. A separate injection was utilized to create a skin wheal at the incision site to control procedural bleeding. After acceptable regional anesthesia was reached, a 11-blade scalpel was utilized to make a stab incision at the marked treatment site. The Hydrocision TenJet needle device, under constant physician guided MSK-US visualization, was inserted to the area of pathological tissue. Maintaining this visualization, degenerative tissue was debrided and confirmed by the treating physician. Upon satisfaction of removal of the targeted degenerative tissue, the TenJet needle device was removed, compression was applied to the incisional site with sterile gauze. Bleeding was controlled and sterile strips were applied, with occlusive dressing and compression bandage. Patient left the procedure room in satisfactory condition having tolerated the procedure well. Outcome: tolerated well, no immediate complications Post-injection instructions were reviewed with the patient and the patient voiced understanding of these instructions. Estimated blood loss less than 5 mL no complications, Estimated blood loss less than 5 mL. SIGN OUT All instruments, equipment, possible retained foreign bodies accounted for. DO Jamil Garces Jason A, DO 05/03/2023 9:[address] [facility] POST-PROCEDURE INSTRUCTIONS 1. WOUND CARE - Keep bandages and procedure area clean and dry for 5 days - Avoid submerging area in water for 5 days - You did not have any sutures or stitches placed. Steri-strips were placed over the wound. These will fall off in the shower after about one week. If they have not fallen off after the first 9 days, you can remove them yourself. - CONTACT OUR OFFICE IF: - The area become red or hot to touch - You have a fever of 100? or more (but do not wait for a response, seek immediate care) - You have increased pain or swelling - You have drainage from the treatment site Best way to connect would be via [employer] or directly call [facility] at [phone]. If unable to connect, please proceed to the nearest Emergency Care Center. 2. POST-PROCEDURE PAIN CONTROL - You may apply ice for 20 minutes as needed for discomfort 3. WEEK BY WEEK SCHEDULE Weeks 1-2 Immobilization: Wrist brace 2 weeks Lifting restriction: NOTHING over 2-5 lbs and NO repetitive motions (ie mouse/phone/tablet/cooking/ weight lifting/pushups) Activity/work limitations: Keep wrist in NEUTRAL postion Week 3-5 Therapy: Start PT program by week 2/3 Immobilization: Elbow strap as need for exercises Return to work/activity: as tolerated Month 3 Follow-up in the office with Dr. Negron Week 7+ Progress with your training or return to work. Typically, full results are noted at 3 months and beyond. Thank you for choosing the [facility] Medical Orthopedic team for your care. Frank Negron D.O. Sports [facility] Medical Orthopaedics [place] (more content not included)... Normal [facility] ELBOW RT (POC) HAYDEE USE ON 2023 [facility] CNTHERAPYon 03-21-2023 CNTHERAPY OT/PT/Speech Visit ( CHRISTINA) MICHELLE RIVERA ([id number]) 1985 F Date Time Provider Department 03/21/23 8:00 AM MARCELINA MCMANUS Date Time Provider Department Center 03/21/2023 8:00 AM [id number] MCMANUS Reason for Visit: OT Discharge [750] Occupational Therapy [504] Primary Visit Diagnosis:Right elbow pain [M25.521] Other Visit Diagnosis:Lateral epicondylitis of right elbow [M77.11] Allergies As of Date: 03/21/2023 Noted Allergy Reaction PENICILLINS 08/20/2022 4 - Hives SULFA (SULFONAMIDE ANTIBIOTICS) 08/20/2022 4 - Hives Date Reviewed: 02/14/2023 Reviewed by: Rajiv Agarwal-BENITA Tsai - Fully Assessed Prescriptions as of 09/05/2023 - methylPREDNISolone (MEDROL DOSE-PACK) 4 mg Dose-Pack As Instructed per package - pregabalin (LYRICA) 100 mg capsule Take 100 mg by mouth twice daily. - citalopram (CELEXA) 40 mg tablet Take 40 mg by mouth once daily. - atenolol (TENORMIN) 25 mg tablet Take 25 mg by mouth once daily. - vits 4/iron fum/folic (-H ORAL) Take by mouth once daily. - omeprazole (PRILOSEC) 40 mg capsule Take 40 mg by mouth once daily. Normal [facility] CNTHERAPYon 03-07-2023 CNTHERAPY OT/PT/Speech Visit ( KATTOTRM) MICHELLE RIVERA ([id number]) 1985 F Date Time Provider Department 03/07/23 11:00 AM ESTEPHANIA WHITT Date Time Provider Department [place] 03/07/2023 11:00 AM [id number] WHITT Reason for Visit: Occupational Therapy [504] Primary Visit Diagnosis:Right elbow pain [M25.521] Other Visit Diagnosis:Lateral epicondylitis of right elbow [M77.11] Allergies As of Date: 03/07/2023 Noted Allergy Reaction PENICILLINS 08/20/2022 4 - Hives SULFA (SULFONAMIDE ANTIBIOTICS) 08/20/2022 4 - Hives Date Reviewed: 02/14/2023 Reviewed by: Edy Agarwal MA - Fully Assessed Prescriptions as of 03/07/2023 - methylPREDNISolone (MEDROL DOSE-PACK) 4 mg Dose-Pack As Instructed per package - pregabalin (LYRICA) 100 mg capsule Take 100 mg by mouth twice daily. - citalopram (CELEXA) 40 mg tablet Take 40 mg by mouth once daily. - atenolol (TENORMIN) 25 mg tablet Take 25 mg by mouth once daily. - vits 4/iron fum/folic (-H ORAL) Take by mouth once daily. - omeprazole (PRILOSEC) 40 mg capsule Take 40 mg by mouth once daily. Letter Text Normal [facility] CNTHERAPYon 03-01-2023 CNTHERAPY OT/PT/Speech Visit ( LOOTRM) RAULMICHELLE ([id number]) 1985 F Date Time Provider Department 03/01/23 8:00 AM ESTEPHANIA WHITT Date Time Provider Department [place] 03/01/2023 8:00 AM [id number] WHITT Reason for Visit: Occupational Therapy [504] Primary Visit Diagnosis:Right elbow pain [M25.521] Other Visit Diagnosis:Lateral epicondylitis of right elbow [M77.11] Allergies As of Date: 03/01/2023 Noted Allergy Reaction PENICILLINS 08/20/2022 4 - Hives SULFA (SULFONAMIDE ANTIBIOTICS) 08/20/2022 4 - Hives Date Reviewed: 02/14/2023 Reviewed by: Edy Agarwal MA - Fully Assessed Prescriptions as of 03/01/2023 - methylPREDNISolone (MEDROL DOSE-PACK) 4 mg Dose-Pack As Instructed per package - pregabalin (LYRICA) 100 mg capsule Take 100 mg by mouth twice daily. - citalopram (CELEXA) 40 mg tablet Take 40 mg by mouth once daily. - atenolol (TENORMIN) 25 mg tablet Take 25 mg by mouth once daily. - vits 4/iron fum/folic (-H ORAL) Take by mouth once daily. - omeprazole (PRILOSEC) 40 mg capsule Take 40 mg by mouth once daily. Letter Text Normal [facility] CNTHERAPYon 02-22-2023 CNTHERAPY OT/PT/Speech Visit ( LOOTRM) MICHELLE RIVERA ([id number]) 1985 F Date Time Provider Department 02/22/23 9:30 AM ESTEPHANIA WHITT Date Time Provider Department Center 02/22/2023 9:30 AM [id number] WHITT Reason for Visit: OT EVAL [748] Primary Visit Diagnosis:Right elbow pain [M25.521] Other Visit Diagnosis:Lateral epicondylitis of right elbow [M77.11] Allergies As of Date: 02/22/2023 Noted Allergy Reaction PENICILLINS 08/20/2022 4 - Hives SULFA (SULFONAMIDE ANTIBIOTICS) 08/20/2022 4 - Hives Date Reviewed: 02/14/2023 Reviewed by: Edy Agarwal MA - Fully Assessed Prescriptions as of 03/01/2023 - methylPREDNISolone (MEDROL DOSE-PACK) 4 mg Dose-Pack As Instructed per package - pregabalin (LYRICA) 100 mg capsule Take 100 mg by mouth twice daily. - citalopram (CELEXA) 40 mg tablet Take 40 mg by mouth once daily. - atenolol (TENORMIN) 25 mg tablet Take 25 mg by mouth once daily. - vits 4/iron fum/folic (-H ORAL) Take by mouth once daily. - omeprazole (PRILOSEC) 40 mg capsule Take 40 mg by mouth once daily. Annotated image of OT HAND EPICONDYLITIS LATERAL/MEDIAL PG 1 OF 4 last updated by Marshy Whitt, OTR/L on 02/22/2023 10:16 AM Annotated image of OT HAND EPICONDYLITIS LATERAL/MEDIAL PG 2 OF 4 last updated by Marshy Zieglerencenzo, OTR/L on 02/22/2023 10:16 AM Annotated image of OT HAND EPICONDYLITIS LATERAL/MEDIAL PG 3 OF 4 last updated by Estephania Zieglerencecamilo, OTR/L on 02/22/2023 10:16 AM Annotated image of OT HAND EPICONDYLITIS LATERAL/MEDIAL PG 4 OF 4 last updated by Estephania Zieglerencecamlio, OTR/L on 02/22/2023 10:16 AM Annotated image of OT HAND EPICONDYLITIS LATERAL/MEDIAL PG 1 OF 4 last updated by Estephania Whitt, OTR/L on 02/22/2023 10:21 AM Letter Text Normal [facility] 02-14-2023 CNOV Office Visit (RAMÓN ) MICHELLE RIVERA ([id number]) 1985 F Date Time Provider Department 02/14/23 11:15 AM FRANK NEGRON During your visit today, we recorded the following information about you: Frank Negron DO 02/14/2023 12:57 PM Signed [facility] Office Visit Documentation Note [facility] Sports Medicine Orthopaedic and Rheumatologic [place] REASON FOR VISIT / CHIEF COMPLAINT SERVICE DATE: February 14, 2023 PCP: Bernarda Pinto [facility] CHIEF COMPLAINT: Michelle Rivera is a 38 year old RHD female who presents today for follow up office visit for her right elbow. Previously had PRP injection 12/20/22. She reports having some relief from this. She rates pain at 4/10 dull/aching and sometimes sharp. Has been icing for relief. Patient presents with: Right Elbow - Established Patient HISTORY OF PRESENT ILLNESS (HPI) PAIN EVALUATION 02/14/2023 1120 Pain Level: 4 Pain at worst 6/10 Pain Location: Elbow-Right Description: Aching;Dull;Sharp Duration Units: Months Frequency: Intermittent Brief Review: right elbow pain Any new injury, since being seen last: No REVIEW OF SYSTEMS ROS: Neurologic: Any numbness or tingling in the LOCAL AREA? No Endocrine: Any diagnosis of diabetes? No ALLERGIES ALLERGIES Allergen Reactions Penicillins Hives Sulfa (Sulfonamide * Hives PAST MEDICAL HISTORY No past medical history on file. PHYSICAL EXAMINATION PHYSICAL EXAMINATION: Body Habitus:well nourished and no acute distress Psych: normal Sensation: sensation to light touch is grossly normal bilaterally Swelling: no swelling noted Specific MSK Exam Ortho Exam Pain with CET Good Elbow motion Improved CET pain with counterforce RADIOLOGY: IMAGING: ASSESSMENT / PLAN CLINICAL IMPRESSION / ASSESSMENT: (M25.521) Right elbow pain (primary encounter diagnosis) (M77.11) Lateral epicondylitis of right elbow RECOMMENDATION / PLAN: Advised: Tenjet - cannot d/t time away from work Avoid CSI Strap for work / Medrol pack x 1 only. Verbal health education was given to patient. Patient verbalizes understanding and agrees with the treatment plan as detailed above. Frank Negron D.O. [facility] Orthopaedic and Rheumatologic [place] Team Physician, [facility] Consulting Physician, [place] Lexi Reddy, Otorhinolaryngologist [phone] Allergies As of Date: 02/14/2023 Noted Allergy Reaction PENICILLINS 08/20/2022 4 - Hives SULFA (SULFONAMIDE ANTIBIOTICS) 08/20/2022 4 - Hives Date Reviewed: 02/14/2023 Reviewed by: Edy Agarwal MA - Fully Assessed Reason for Visit: Established Patient [175] Primary Visit Diagnosis:Right elbow pain [M25.521] Other Visit Diagnosis:Lateral epicondylitis of right elbow [M77.11] Order(s):US ELBOW RT (POC) HAYDEE USE ONLY [[id number]] Order #: [id number]. #:[id number]: 1 methylPREDNISolone (MEDROL DOSE-PACK) 4 mg Dose-PackAs Instructed per packageDisp: 1 tabletRfl: 0 CONSULT TO REPLANTER [[id number]] Order #: [id number]: 1 FUTURE Prescriptions as of 02/14/2023 - methylPREDNISolone (MEDROL DOSE-PACK) 4 mg Dose-Pack As Instructed per package - pregabalin (LYRICA) 100 mg capsule Take 100 mg by mouth twice daily. - citalopram (CELEXA) 40 mg tablet Take 40 mg by mouth once daily. - atenolol (TENORMIN) 25 mg tablet Take 25 mg by mouth once daily. - vits 4/iron fum/folic (-H ORAL) Take by mouth once daily. - omeprazole (PRILOSEC) 40 mg capsule Take 40 mg by mouth once daily. Problem List As Of Date: 02/14/2023 (None) Prescriptions ordered this encounter Disp Refills Start End METHYLPREDNISOLONE 4 MG TABLETS IN A* 1 ta* 0 02/14/2023 Sig: As Instructed per package Level of Service: OFFICE/OUTPATIENT ESTABLISHED MOD [facility] 30-39 MIN [69374] Encounter Status:Closed by FRANK NEGRON on 02/14/23 Normal [facility] US ELBOW RT (POC) HAYDEE USE ON [place] 02-14-2023 [facility] MICHELLE RIVER[facility] ([id number]) 1985 F Date Time Provider Department 01/24/23 FRANK NEGRON ORQ During your visit today, we recorded the following information about you: Amy Elliott Pss 01/24/2023 10:32 AM Signed Pt requesting OT order for elbow pain. It is affecting her job. Pt would like to complete this with a facility in [place], [place]. Pt does not have the fax number but will try to get this and call us back. [place] OT phone [phone] Patient has been identified by name and birthdate. Duration of symptoms: N/A Person calling: self Call patient at: on cell [phone] (home) Was an appointment scheduled: No Closing statement: Results or non-symptom based questions: Thank you for calling [facility], your call will be returned within the next business day. Amy Elliott Pss Lesly Sherman RN 02/01/2023 10:44 AM Signed Sent message asking if order needed to be OT specifically. There is a valid PT order in the chart and Dr. Negron is not in the office at this time. Waiting on response. Lesly Sherman RN, BSN Allergies As of Date: 01/24/2023 Noted Allergy Reaction PENICILLINS 08/20/2022 4 - Hives SULFA (SULFONAMIDE ANTIBIOTICS) 08/20/2022 4 - Hives Date Reviewed: 12/20/2022 Reviewed by: Edy Agarwal MA - Fully Assessed Reason for Visit: Orders [681] Prescriptions as of 02/01/2023 - pregabalin (LYRICA) 100 mg capsule Take 100 mg by mouth twice daily. - citalopram (CELEXA) 40 mg tablet Take 40 mg by mouth once daily. - atenolol (TENORMIN) 25 mg tablet Take 25 mg by mouth once daily. - vits 4/iron fum/folic (-H ORAL) Take by mouth once daily. - omeprazole (PRILOSEC) 40 mg capsule Take 40 mg by mouth once daily. Problem List As Of Date: 01/24/2023 (None) Encounter Status:Closed by LESLY SHERMAN on 02/01/23 [facility] CNOVon 12-20-2022 CNOV Office Visit (ORAVON ) MICHELLE RIVERA ([id number]) 1985 F Date Time Provider Department 12/20/22 3:00 PM FRANK NEGRON During your visit today, we recorded the following information about you: Frank Negron DO 12/20/2022 12:52 PM Signed Right elbow pain (primary encounter diagnosis) Lateral epicondylitis of both elbows Biologics Injection: R elbow Previously completed treatments/injections: Platelet Rich Plasma Informed Consent Consent Obtained: Written [place] Protocol A moment to CARE was completed. SIGN IN Personnel directly involved with the procedure wore the appropriate PPE. Patient/Surrogate Stated/Verified: Patient name, Date of , Relevant allergies and Intended procedure TIME OUT Intended patient and procedure match the source document(s). Consent documented and matches the intended procedure. Relevant labs, photos, and/or imaging studies have been reviewed. Correct side/site marked and visible. Medications required for procedure verified. Fire risk assessed and interventions discussed. 12/20/2022 12:51 PM The procedure site was prepped in the usual sterile fashion. Site: R elbow PRP Device/Protocol: Emcyte LR-PRP Right PRP injected: 1.3ml Total injected: 1.3ml Details:Guidance: Ultrasound Musculoskeletal ultrasound was utilized to successfully localize placement of the injection needle at the appropriate site. Ultrasound images demonstrating local vasculature and demonstrating injection of solution were saved. Anesthetics: 2 mL lidocaine (PF) 10 mg/mL (1 %) Outcome: Tolerated well, no immediate complications Post-injection instructions were reviewed with the patient and the patient voiced understanding of these instructions. SIGN OUT All instruments, equipment, possible retained foreign bodies accounted for. Frank Negron DO Referring Provider: FRANK NEGRON [[id number]] Allergies As of Date: 12/20/2022 Noted Allergy Reaction PENICILLINS 08/20/2022 4 - Hives SULFA (SULFONAMIDE ANTIBIOTICS) 08/20/2022 4 - Hives Date Reviewed: 12/20/2022 Reviewed by: Edy Agarwal MA - Fully Assessed Reason for Visit: Established Patient [175] Primary Visit Diagnosis:Right elbow pain [M25.521] Other Visit Diagnosis:Lateral epicondylitis of both elbows [M77.11, M77.12] Order(s):US ELBOW RT (POC) HAYDEE USE ONLY [[id number]] Order #: [id number]: 1 acetaminophen-codeine (TYLENOL-CODEINE #3) 300-30 mg per tabletTake 1 tablet by mouth every 4 hours as needed for up to 5 days.Disp: 12 tabletRfl: 0 Biologics Injection: R elbow [NGB156] Order #: [id number] [] lidocaine (PF) 10 mg/mL (1 %) 2 mL injection (XYLOCAINE)Disp: Rfl: Prescriptions as of 12/20/2022 - acetaminophen-codeine (TYLENOL-CODEINE #3) 300-30 mg per tablet Take 1 tablet by mouth every 4 hours as needed for up to 5 days. - pregabalin (LYRICA) 100 mg capsule Take 100 mg by mouth twice daily. - citalopram (CELEXA) 40 mg tablet Take 40 mg by mouth once daily. - atenolol (TENORMIN) 25 mg tablet Take 25 mg by mouth once daily. - vits 4/iron fum/folic (-H ORAL) Take by mouth once daily. - omeprazole (PRILOSEC) 40 mg capsule Take 40 mg by mouth once daily. Problem List As Of Date: 12/20/2022 (None) Prescriptions ordered this encounter Disp Refills Start End ACETAMINOPHEN 300 MG-CODEINE 30 MG T* 12 t* 0 12/20/2022 12/25/2022 Route: ORAL Sig: Take 1 tablet by mouth every 4 hours as needed for up to 5 days. LIDOCAINE (PF) 10 MG/ML (1 %) INJECT* 12/20/2022 12/20/2022 Route: Inj-ORTHO Encounter Status:Closed by FRANK NEGRON on 12/20/22 Normal [facility] US ELBOW RT (POC) HAYDEE USE ON 12-20-2022 [facility] 12-04-2022 CNOV Office Visit (ORFWHP ) MICHELLE RIVERA ([id number]) 1985 F Date Time Provider Department 12/04/22 10:00 AM FRANK NEGRON ORFWHP During your visit today, we recorded the following information about you: Frank Negron DO 12/04/2022 10:03 AM Signed [facility] Office Visit Documentation Note [facility] Sports Medicine Orthopaedic and Rheumatologic [place] HISTORY OF PRESENT ILLNESS (HPI) SERVICE DATE: December 04, 2022 PCP: No primary care provider on file. CHIEF COMPLAINT / REASON FOR VISIT Michelle Rivera is a 37 year old female who presents today for a follow-up evaluation of following complaint: Patient presents with: Left Elbow - Established Patient Right Elbow - Established Patient HISTORY OF PRESENT ILLNESS (HPI) PAIN EVALUATION 12/04/2022 0942 Pain Level: 4 at it's worst a 6 Pain Location: Elbow-Left bilateral Description: Radiating;Aching;Stabbing Duration Units: Years Frequency: Continuous Comments: cortisone injections, PT, braces Any new injury, since being seen last: No Patient reports that they are feeling remain unchanged from prior visit SOCIAL HISTORY: Tobacco Use: Types: Cigarettes PHYSICAL EXAMINATION PHYSICAL EXAMINATION: Body Habitus:well nourished and no acute distress Psych: normal Sensation: sensation to light touch is grossly normal bilaterally Swelling: no swelling noted Specific MSK Exam Ortho Exam On examination bilateral common extensor tendon is worse with common extensor exam under tension. Both elbows have decreased extension RADIOLOGY: IMAGING: No imaging was performed today. Last XR Elbow - Impression Only XR ELBOW SPECIAL VIEWS AP/LAT/OTHER RIGHT Exam End: 07/20/2022 9:22 AM (Final result) Impression: IMPRESSION: NORMAL EXCEPT FOR MINIMAL LATERAL EPICONDYLAR ENTHESOPATHY BILATERALLY Payroll Representative: SHAYNE Transcribe Date/Time: Jul 20 2022 10:34A ... Last MRI Elbow - Impression Only MRI ELBOW WO IVCON RT Exam End: 09/11/2022 11:27 AM (Final result) Impression: IMPRESSION: 1. Tendinosis and a small partial tear of the common extensor tendon origin. Payroll Representative: SHAYNE Transcribe Date/Time: Sep 11 2022 11:42A... 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 SEVERE ASSOCIATED HYPEREMIA. TEAR OF THE RADIAL COLLATERAL LIGAMENT, ALSO UNCHANGED. ... ASSESSMENT / PLAN CLINICAL IMPRESSION / ASSESSMENT: CLINICAL IMPRESSION / ASSESSMENT: (M77.11, M77.12) Lateral epicondylitis of both elbows (primary encounter diagnosis) (M25.522) Left elbow pain RECOMMENDATION / PLAN: Counseling / Referral I talked about treatment options at length today. Initially she would like a cortisone injection for pain and its been present to bilateral common extensor with partial tears and radial collateral ligament insufficiency for at least 2 to 3 years. I have educated her that these cortisone injections may further risk rupturing the tendon completely. We talked about Ortho Biologics in the form of platelet rich plasma-leukocyte rich platelet rich plasma at $750 per treatment. She would like to start likely with the right elbow URSULA. I would wear a wrist brace for at least 2 weeks after and then consider if she is doing well do the other side. We will hold off on oral medications given she just had bariatric surgery but add a topical compound DIEGO keto topically as needed. We talked about for this chronic likely chronic tear and fibrotic tissue, minimally invasive percutaneous tendon debridement should treatment above not satiate the pain Follow up: Written instructions (see patient instructions) and verbal health education given to patient. Patient verbalizes understanding and agrees with the treatment plan. Frank Negron D.O. [facility] Orthopaedic and Rheumatologic [place] Supervisor, [facility] AND [facility] Program Team Physician, [facility] [employer] Consulting Physician, [place] Lexi Reddy, Otorhinolaryngologist [phone] Allergies As of Date: 12/04/2022 Noted Allergy Reaction PENICILLINS 08/20/2022 4 - Hives SULFA (SULFONAMIDE ANTIBIOTICS) 08/20/2022 4 - Hives Date Reviewed: 12/04/2022 Reviewed by: Amy Sood MA - Fully Assessed Reason for Visit: Established Patient [175] Established Patient [175] Primary Visit Diagnosis:Lateral epicondylitis of both elbows [M77.11, M77.12] Other Visit Diagnosis:Left elbow pain [M25.522] Prescriptions as of 12/04/2022 - pregabalin (LYRICA) 100 mg capsule Take 100 mg by mouth twice daily. - citalopram (CELEXA) 40 mg tablet Take 40 mg by mouth once daily. - atenolol (TENORMIN) 25 mg tablet Take 25 mg by mouth once daily. - vits 4/ir (more content not included)... Normal [facility] US ELBOW LTon 11-16-2022 US ELBOW LT * * *Final Report* * * DATE OF EXAM: Nov 16 2022 10:34AM AFU 1133 - US ELBOW LT / PROCEDURE REASON: multiple diagnoses * * * * Physician Interpretation * * * * MSK_US LEFT LATERAL ELBOW ULTRASOUND: CLINICAL INFORMATION:Chronic bilateral lateral elbow pain. TECHNIQUE: Valero-scale real-time ultrasound of the lateral elbow with dynamic imaging and power Doppler examination was performed. Images were saved to the permanent image archive. v2-20. COMPARISON: MRI: 09/11/2022 FINDINGS: COMMON EXTENSOR TENDON: Tendinosis: Moderate. Tearing: Chronic appearing partial tear, similar to prior MRI. Power Doppler Examination: Severe associated hyperemia. Fascia: Moderate thickening. Lateral Epicondyle: Normal appearance. LATERAL COLLATERAL LIGAMENT COMPLEX: Tearing of the radial collateral ligament as seen on prior MRI. Grossly intact lateral ulnar collateral ligament. JOINT SPACE: Maintained. 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 SEVERE ASSOCIATED HYPEREMIA. TEAR OF THE RADIAL COLLATERAL LIGAMENT, ALSO UNCHANGED. Payroll Representative: [facility] Transcribe Date/Time: Nov 16 2022 11:03A Dictated by : SETH JAQUEZ MD This examination was interpreted and the report reviewed and electronically signed by: SETH JAQUEZ MD on Nov 16 2022 1:00PM EST [id number] Normal [facility] CNOVon 09-17-2022 CNOV Office Visit (ORAVON ) MICHELLE RIVERA ([id number]) 1985 F Date Time Provider Department 09/17/22 10:15 AM FRANK NEGRON During your visit today, we recorded the following information about you: Weight Height 117.9 kg 1.664 m Frank Negron DO 09/17/2022 10:48 AM Signed [facility] Office Visit Documentation Note [facility] Sports Medicine Orthopaedic and Rheumatologic [place] HISTORY OF PRESENT ILLNESS (HPI) SERVICE DATE: September 17, 2022 PCP: No primary care provider on file. CHIEF COMPLAINT / REASON FOR VISIT Michelle Rivera is a 37 year old female who presents today for a follow-up evaluation of following complaint: Patient presents with: Left Elbow - Follow Up HISTORY OF PRESENT ILLNESS (HPI) PAIN EVALUATION 09/17/2022 1016 Pain Level: 5 7/10 at worse Pain Location: Elbow-Left Description: Aching;Stabbing Duration Amount of Time: 2 Duration Units: Years ongoing for 8 years Frequency: Continuous Intervention/Comfort measure: Medication Any new injury, since being seen last: No Patient reports that they are feeling remain unchanged from prior visit SOCIAL HISTORY: Tobacco Use: Not on file PHYSICAL EXAMINATION PHYSICAL EXAMINATION: Body Habitus:well nourished and no acute distress Psych: normal Sensation: sensation to light touch is grossly normal bilaterally Swelling: no swelling noted Specific MSK Exam Ortho Exam Discussion RADIOLOGY: IMAGING: Last XR Elbow - Impression Only XR ELBOW SPECIAL VIEWS AP/LAT/OTHER RIGHT Exam End: 07/20/2022 9:22 AM (Final result) Impression: IMPRESSION: NORMAL EXCEPT FOR MINIMAL LATERAL EPICONDYLAR ENTHESOPATHY BILATERALLY Payroll Representative: SHAYNE Transcribe Date/Time: Jul 20 2022 10:34A ... Last MRI Elbow - Impression Only MRI ELBOW WO IVCON RT Exam End: 09/11/2022 11:27 AM (Final result) Impression: IMPRESSION: 1. Tendinosis and a small partial tear of the common extensor tendon origin. Payroll Representative: SHAYNE Transcribe Date/Time: Sep 11 2022 11:42A... ASSESSMENT / PLAN CLINICAL IMPRESSION / ASSESSMENT: CLINICAL IMPRESSION / ASSESSMENT: (M77.11, M77.12) Lateral epicondylitis of both elbows (primary encounter diagnosis) (M25.522) Left elbow pain (M25.521) Right elbow pain (M79.7) Fibromyalgia RECOMMENDATION / PLAN: Counseling / Referral A total of 20 minutes were spent [id number] with the patient during this encounter and over half of that time was spent on counseling and coordination of care, that time being 20 minutes. We discussed, in depth, She has had chronic elbow pain for greater than 8 years. She has a history of fibromyalgia. She has MRIs that shows the right common extensor to be mildly thickened and the left common extensor to have moderate tendinosis with likely a chronic rather than acute tear. I would recommend to add an ultrasound of the left elbow. Options include #1 bilateral PRP injections at $1500 [id number] Option #2 bilateral minimally invasive percutaneous tendon debridement Option #3 surgical consult.. Follow up: Okay to send a MyChart note on my recommendation after ultrasound of the left lateral elbow for evaluation of chronicity of common extensor tendon injury. Written instructions (see patient instructions) and verbal health education given to patient. Patient verbalizes understanding and agrees with the treatment plan. Frank Negron D.O. [facility] [employer] Supervisor, [facility] AND T.E.A.M. Program Team Physician, [facility] [employer] Consulting Physician, [place] Lexi Reddy, Otorhinolaryngologist [phone] Frank Negron DO 09/17/2022 10:35 AM Signed IMAGING AND LABORATORY Dr. Negron has requested further imaging to help coordinate your individualized plan of care. Most of these images will need to be appropriately scheduled. MRI/CT/Xray : Please stop at the front desk associate to coordinate timing and scheduling of your image. IF your image is completed outside of the [facility], two steps will need to be taken and presented to Dr. Negron's office for review. 1. Gather a CD copy of your image at the time of service. 2. Gather Radiology Report, when available. Reports can be faxed to [phone]. [facility] [place] : Please call [phone] to schedule your ultrasound appointment. LAB Requests: These can be completed at your nearest [facility] LAB facility. Please allow for up to one week for results to finalize. Follow up: You may request [facility] release of your imaging at 3 DAYS after your imaging appointment. Dr. Negron will often read the image and make a recommendation through [employer]. Please understand, that due to the complexity of the presenting issue, many patients will need a physical examination even after their imaging, which would require a (more content not included)... Normal [facility] CNPNon 09-17-2022 CNPN Telephone (RULTTB) MICHELLE RIVERA ([id number]) 1985 F Date Time Provider Department 09/17/22 XANDER LÓPEZ RUTB During your visit today, we recorded the following information about you: Xander López 09/17/2022 10:49 AM Addendum Visit Type: ANY MSK Visit Length: 45, 50 OR 60 MINUTES Order Name/Protocol: US ELBOW LT; LATERAL Preferred Provider: N/A Comment: Please ask if the patient has ever had any prior surgery to their LT ELBOW. If so, upgrade the visit type to an MSK1 and notate the surgical hx in the Appointment Note. Location: Depending on the surgical hx, this patient can have this exam performed at any of our three locations. Slot held: N/A Keshawn Castro 09/17/2022 11:49 AM Signed Pt is scheduled for their MSK US on 11/16 at [place]. Allergies As of Date: 09/17/2022 Noted Allergy Reaction PENICILLINS 08/20/2022 4 - Hives SULFA (SULFONAMIDE ANTIBIOTICS) 08/20/2022 4 - Hives Date Reviewed: 09/17/2022 Reviewed by: Sandra Sanchez - Fully Assessed Reason for Visit: Appointment [186] Prescriptions as of 09/17/2022 - pregabalin (LYRICA) 100 mg capsule Take 100 mg by mouth twice daily. - citalopram (CELEXA) 40 mg tablet Take 40 mg by mouth once daily. - atenolol (TENORMIN) 25 mg tablet Take 25 mg by mouth once daily. - vits 4/iron fum/folic (-H ORAL) Take by mouth once daily. - omeprazole (PRILOSEC) 40 mg capsule Take 40 mg by mouth once daily. Problem List As Of Date: 09/17/2022 (None) Encounter Status:Closed by KESHAWN CASTRO on 09/17/22 Normal [facility] MRI ELBOW WO IVCON LTon 09-02 MRI ELBOW WO IVCON LT * * *Final Report* * * DATE OF EXAM: Sep 11 2022 10:52AM LNM 0188 - MRI ELBOW WO IVCON LT / PROCEDURE REASON: multiple diagnoses * * * * Physician Interpretation * * * * MRI Left Elbow without contrast: INDICATION: Lateral elbow pain. COMPARISON: None available TECHNIQUE: Fat suppression T2-weighted sagittal, T1 weighted and fat suppression T2-weighted coronal and T1 and fat suppression T2-weighted axial imaging. RESULT: Ulnar collateral ligament: within normal limits. Radial collateral ligament: Torn anteriorly at its humeral attachment. Lateral ulnar collateral ligament: within normal limits. Common extensor tendon: Large partial tear at its origin, with the tear measuring 10 x 11 x 5 mm. Common flexor tendon: within normal limits. Biceps tendon: within normal limits. Triceps tendon: within normal limits. Brachialis tendon: within normal limits. Articular cartilage: No defects or significant signal abnormality is noted within the articular cartilage of the ulnohumeral, radiocapitellar and proximal radioulnar joints. Muscles: Normal muscle bulk and signal intensity. Bone marrow: Within normal limits. No fractures nor marrow replacing lesions. Nerves: The ulnar nerve is visualized and demonstrates normal position, size and signal intensity. The radial and median nerves are partially seen and appear normal as well. Joint fluid: No joint effusion nor synovitis. IMPRESSION: 1. Large partial tear of the common extensor tendon origin with associated tearing of the radial collateral ligament. Payroll Representative: PSCB Transcribe Date/Time: Sep 11 2022 11:29A Dictated by : ASHLEY MCCARTY MD This examination was interpreted and the report reviewed and electronically signed by: ASHLEY MCCARTY MD on Sep 11 2022 11:33AM EST [id number] Normal [facility] MRI ELBOW WO IVCON RTon 09-02 MRI ELBOW WO IVCON RT * * *Final Report* * * DATE OF EXAM: Sep 11 2022 11:27AM LNM 0189 - MRI ELBOW WO IVCON RT / PROCEDURE REASON: multiple diagnoses * * * * Physician Interpretation * * * * MRI Right Elbow without contrast: INDICATION: Lateral elbow pain. COMPARISON: None available TECHNIQUE: Fat suppression T2 weighted sagittal, T1 and fat suppression T2-weighted coronal and T1 and fat suppression T2-weighted axial imaging of the RIGHT elbow is reviewed. RESULT: Ulnar collateral ligament: within normal limits. Radial collateral ligament: within normal limits. Lateral ulnar collateral ligament: within normal limits. Common extensor tendon: Moderate tendinosis at the origin with a small, partial tear demonstrated, with the tear measuring 3 x 5 x 2 mm. Common flexor tendon: within normal limits. Biceps tendon: within normal limits. Triceps tendon: within normal limits. Brachialis tendon: within normal limits. Articular cartilage: No defects or significant signal abnormality is noted within the articular cartilage of the ulnohumeral, radiocapitellar and proximal radioulnar joints. Muscles: Normal muscle bulk and signal intensity. Bone marrow: Within normal limits. No fractures nor marrow replacing lesions. Nerves: The ulnar nerve is visualized and demonstrates normal position, size and signal intensity. The radial and median nerves are partially seen and appear normal as well. Joint fluid: No joint effusion nor synovitis. IMPRESSION: 1. Tendinosis and a small partial tear of the common extensor tendon origin. Payroll Representative: SHAYNE Transcribe Date/Time: Sep 11 2022 11:42A Dictated by : ASHLEY MCCARTY MD This examination was interpreted and the report reviewed and electronically signed by: ASHLEY MCCARTY MD on Sep 11 2022 11:47AM EST [id number] Normal [facility] 25(OH)D3 [facility] 25-hydroxyvitamin D3 [Mass/Vol] 37.9 ng/mL Normal 31.0-80.0 [facility] Comment on above: Order Comment: Speci men Type: BLOOD SPECIMEN Ordering Facility: [facility] Address: [address] [place] [phone] Result Comment: Clas sification of 25 [place] Vitamin D status: Deficiency/Insufficiency: < or = 30 ng/ml. Sufficiency/Optimal Levels: 31-80 ng/mL Toxicity: > 100 ng/mL. Test performed by chemiluminescent immunoassay. Performed By: #### 1 989-3 #### [facility] CLIA [id number] [address] [place] [address] [place] FELICIANO BY IFA WITH REFLEXon Nuclear Ab IF (S) [Titer] Negative Normal Negative [facility] Comment on above: Order Comment: Speci men Type: BLOOD SPECIMEN Ordering Facility: [facility] Address: [address] [address] Result Comment: Anti -nuclear antibody test is used as an aid in diagnosis of systemic autoimmune diseases. Where positive and clinically warranted, follow-up using disease-specific testing is recommended. Low positive titers are not uncommon with advanced age, certain chronic infections, and malignancies among others. Test methodology: Indirect fluorescence immunoassay (IFA) using HEp-2 cells. Performed By: #### A NAIFR #### [facility] CLIA [id number] [address] [place] [address] [place] C-REACTIVE PROTEIN (CRP)on 1 10-21-2021 CRP [Mass/Vol] 2.8 mg/dL High <0.9 mg/dL [facility] CBC W Auto Differential pane l (Bld)on 08-20-2022 Basophils (Bld) [#/Vol] 0.03 10*3/uL Normal <0.11 [facility] Comment on above: Order Comment: Speci men Type: BLOOD SPECIMEN Ordering Facility: [facility] Address: [address] [address] Performed By: #### 5 7021-8 #### [facility] CLIA [id number] [facility]. [address] STATES OF [facility] Basophils/100 WBC (Bld) 0.1 % Normal [facility] Comment on above: Order Comment: Speci men Type: BLOOD SPECIMEN Ordering Facility: [facility] Address: [address] [address] Performed By: #### 5 7021-8 #### [facility] CLIA [id number] [address] [place] Differential cell count method Nom (Bld) Auto Normal [facility] Comment on above: Order Comment: Speci men Type: BLOOD SPECIMEN Ordering Facility: [facility] Address: [address] [address] Performed By: #### 5 7021-8 #### [facility] CLIA [id number] [address] [place] [address] [place] Eosinophils (Bld) [#/Vol] 10*3/uL Normal <0.46 [facility] Comment on above: Order Comment: Speci men Type: BLOOD SPECIMEN Ordering Facility: [facility] Address: [address] [address] Performed By: #### 5 7021-8 #### [facility] [place] [id number] [address] [place] Eosinophils/100 WBC (Bld) 0.1 % Normal [facility] Comment on above: Order Comment: Speci men Type: BLOOD SPECIMEN Ordering Facility: [facility] Address: [address] [address] Performed By: #### 5 7021-8 #### [facility] [place] [id number] [address] [place] Erythrocyte distribution width (RBC) [Ratio] 13.1 % Normal 11.5-15.0 [facility] Comment on above: Order Comment: Speci men Type: BLOOD SPECIMEN Ordering Facility: [facility] Address: [address] Performed By: #### 5 7021-8 #### [facility] CLIA [id number] [address] [place] Hematocrit (Bld) [Volume fraction] 40.2 % Normal 36.0-46.0 [facility] Comment on above: Order Comment: Speci men Type: BLOOD SPECIMEN Ordering Facility: [facility] Address: [address] [address] Performed By: #### 5 7021-8 #### [facility] CLIA [id number] [address] [place] [address] [place] Hemoglobin (Bld) [Mass/Vol] 13.0 g/dL Normal 11.5-15.5 [facility] Comment on above: Order Comment: Speci men Type: BLOOD SPECIMEN Ordering Facility: [facility] Address: [address] [address] Performed By: #### 5 7021-8 #### [facility] [place] [id number] [address] [place] [address] [place] Immature granulocytes (Bld) [#/Vol] 0.13 10*3/uL High <0.10 [facility] Comment on above: Order Comment: Speci men Type: BLOOD SPECIMEN Ordering Facility: [facility] Address: [address] [place] [address] Performed By: #### 5 7021-8 #### [facility] [id number] [place] [address] [place] Immature granulocytes/100 WBC (Bld) 0.6 % Normal [facility] Comment on above: Order Comment: Speci men Type: BLOOD SPECIMEN Ordering Facility: [facility] Address: [address] [place], [place] [address] Performed By: #### 5 7021-8 #### [facility] IA [id number] [address] [place] [address] [place] Lymphocytes (Bld) [#/Vol] 1.68 10*3/uL Normal 1.00-4.00 [facility] Comment on above: Order Comment: Speci men Type: BLOOD SPECIMEN Ordering Facility: [facility] Address: [address] [address] Performed By: #### 5 7021-8 #### [facility] [id number] [place] [address] [place] Lymphocytes/100 WBC (Bld) 7.9 % Normal [facility] Comment on above: Order Comment: Speci men Type: BLOOD SPECIMEN Ordering Facility: [facility] Address: [address] [place], [place] [address] Performed By: #### 5 7021-8 #### [facility] [place] [id number] [address] [place] MCH (RBC) [Entitic mass] 28.9 pg Normal 26.0-34.0 [facility] Comment on above: Order Comment: Speci men Type: BLOOD SPECIMEN Ordering Facility: [facility] Address: [address] [address] Performed By: #### 5 7021-8 #### [facility] [place] [id number] [address] [place] [address] [place] MCHC (RBC) [Mass/Vol] 32.3 g/dL Normal 30.5-36.0 [facility] Comment on above: Order Comment: Speci men Type: BLOOD SPECIMEN Ordering Facility: [facility] Address: [address] [address] Performed By: #### 5 7021-8 #### [facility] IA [id number] [address] [place] [address] [place] MCV (RBC) [Entitic vol] 89.3 fL Normal 80.0-100.0 [facility] Comment on above: Order Comment: Speci men Type: BLOOD SPECIMEN Ordering Facility: [facility] Address: [address] [address] Performed By: #### 5 7021-8 #### [facility] [place] [id number] [address] [place] [address] [place] Monocytes (Bld) [#/Vol] 1.22 10*3/uL High <0.87 [facility] Comment on above: Order Comment: Speci men Type: BLOOD SPECIMEN Ordering Facility: [facility] Address: [address] [address] Performed By: #### 5 7021-8 #### [facility] [place] [id number] [place] [address] [place] Monocytes/100 WBC (Bld) 5.7 % Normal [facility] Comment on above: Order Comment: Speci men Type: BLOOD SPECIMEN Ordering Facility: [facility] Address: [address] [address] Performed By: #### 5 7021-8 #### [facility] [place] [id number] [address] [place] [address] [place] Neutrophils (Bld) [#/Vol] 18.27 10*3/uL High 1.45-7.50 [facility] Comment on above: Order Comment: Speci men Type: BLOOD SPECIMEN Ordering Facility: [facility] Address: [address] Performed By: #### 5 7021-8 #### [facility] IA [id number] [address] [place] [address] [place] Neutrophils/100 WBC (Bld) 85.6 % Normal [facility] Comment on above: Order Comment: Speci men Type: BLOOD SPECIMEN Ordering Facility: [facility] Address: [address] [address] Performed By: #### 5 7021-8 #### [facility] IA [id number] [address] [place] [address] [place] Nucleated RBC (Bld) [#/Vol] 10*3/uL Normal <0.01 [facility] Comment on above: Order Comment: Speci men Type: BLOOD SPECIMEN Ordering Facility: [facility] Address: [address] Performed By: #### 5 7021-8 #### [facility] [place] [id number] [address] [place] [address] [place] Nucleated RBC/100 WBC (Bld) [Ratio] 0.0 /100 WBC Normal [facility] Comment on above: Order Comment: Speci men Type: BLOOD SPECIMEN Ordering Facility: [facility] Address: [address] Performed By: #### 5 7021-8 #### [facility] [place] [id number] [address] [place] [address] [place] Platelet mean volume (Bld) [Entitic vol] 9.1 fL Normal 9.0-12.7 [facility] Comment on above: Order Comment: Speci men Type: BLOOD SPECIMEN Ordering Facility: [facility] Address: [address] [address] Performed By: #### 5 7021-8 #### [facility] CLIA [id number] [address] [place] [address] [place] Platelets (Bld) [#/Vol] 358 10*3/uL Normal 150-400 [facility] Comment on above: Order Comment: Speci men Type: BLOOD SPECIMEN Ordering Facility: [facility] Address: [address] [address] Performed By: #### 5 7021-8 #### [facility] IA [id number] [address] [place] [address] [place] RBC (Bld) [#/Vol] 4.50 10*6/uL Normal 3.90-5.20 [facility] Comment on above: Order Comment: Speci men Type: BLOOD SPECIMEN Ordering Facility: [facility] Address: [address] [address] Performed By: #### 5 7021-8 #### [facility] CLIA [id number] [place] WBC (Bld) [#/Vol] 21.35 10*3/uL High 3.70-11.00 [facility] Comment on above: Order Comment: Speci men Type: BLOOD SPECIMEN Ordering Facility: [facility] Address: [address] [address] Performed By: #### 5 7021-8 #### [facility] [place] [id number] [id number] [place] Basophils (Bld) [#/Vol] 0.03 10*3/uL <0.11 k/uL [facility] Basophils/100 WBC (Bld) 0.1 % [facility] Differential cell count method Nom (Bld) Auto [facility] Eosinophils (Bld) [#/Vol] <0.46 k/uL [facility] Eosinophils/100 WBC (Bld) 0.1 % [facility] Erythrocyte distribution width (RBC) [Ratio] 13.1 % 11.5 - 15.0 % [facility] Hematocrit (Bld) [Volume fraction] 40.2 % 36.0 - 46.0 % [facility] Hemoglobin (Bld) [Mass/Vol] 13.0 g/dL 11.5 - 15.5 g/dL [facility] Immature granulocytes (Bld) [#/Vol] 0.13 10*3/uL High <0.10 k/uL [facility] Immature granulocytes/100 WBC (Bld) 0.6 % [facility] Lymphocytes (Bld) [#/Vol] 1.68 10*3/uL 1.00 - 4.00 k/uL [facility] Lymphocytes/100 WBC (Bld) 7.9 % [facility] MCH (RBC) [Entitic mass] 28.9 pg 26.0 - 34.0 pg [facility] MCHC (RBC) [Mass/Vol] 32.3 g/dL 30.5 - 36.0 g/dL [facility] MCV (RBC) [Entitic vol] 89.3 fL 80.0 - 100.0 fL [facility] Monocytes (Bld) [#/Vol] 1.22 10*3/uL High <0.87 k/uL [facility] Monocytes/100 WBC (Bld) 5.7 % [facility] Neutrophils (Bld) [#/Vol] 18.27 10*3/uL High 1.45 - 7.50 k/uL [facility] Neutrophils/100 WBC (Bld) 85.6 % [facility] Nucleated RBC (Bld) [#/Vol] <0.01 k/uL [facility] Nucleated RBC/100 WBC (Bld) [Ratio] 0.0 /100 WBC [facility] Platelet mean volume (Bld) [Entitic vol] 9.1 fL 9.0 - 12.7 fL [facility] Platelets (Bld) [#/Vol] 358 10*3/uL 150 - 400 k/uL [facility] RBC (Bld) [#/Vol] 4.50 10*6/uL 3.90 - 5.20 m/uL [facility] WBC (Bld) [#/Vol] 21.35 10*3/uL High 3.70 - 11.00 k/uL [facility] CRP SerPl-mCncon 08-20-2022 CRP [Mass/Vol] 2.8 mg/dL High <0.9 [place] [facility] Comment on above: Order Comment: Speci men Type: BLOOD SPECIMEN Ordering Facility: [facility] Address: [address] [place], [place] [address] Performed By: #### 2 4323-04, 1988-01, 3083-09 #### [facility] CLIA [id number] [address] [place] [address] [place] Comprehensive metabolic 2000 panelon 08-20-2022 Albumin [Mass/Vol] 4.0 g/dL Normal 3.9-4.9 [facility] Comment on above: Order Comment: Speci men Type: BLOOD SPECIMEN Ordering Facility: [facility] Address: [address] [place], [place] [address] Performed By: #### 2 4323-04, 1988-01, 3083-09 #### [facility] CLIA [id number] [address] [place] [address] [place] ALP [Catalytic activity/Vol] 92 U/L Normal 34-123 [facility] Comment on above: Order Comment: Speci men Type: BLOOD SPECIMEN Ordering Facility: [facility] Address: [address] [place] [address] Performed By: #### 2 4323-04, 1988-01, 3083-09 #### [facility] CLIA [id number] [facility] [place] [address] [place] ALT [Catalytic activity/Vol] 32 U/L Normal 7-38 [facility] Comment on above: Order Comment: Speci men Type: BLOOD SPECIMEN Ordering Facility: [facility] Address: [address] [place] [address] Performed By: #### 2 4328, 1988-01, 3083-09 #### [facility] CLIA [id number] [address] [place] [address] [place] Anion gap [Moles/Vol] 9 mmol/L Normal 9-18 [facility] Comment on above: Order Comment: Speci men Type: BLOOD SPECIMEN Ordering Facility: [facility] Address: [place] [address] Performed By: #### 2 4328, 1988-01, 3083-09 #### [facility] CLIA [id number] [address] [place] [address] [place] AST [Catalytic activity/Vol] 16 U/L Normal 13-35 [facility] Comment on above: Order Comment: Speci men Type: BLOOD SPECIMEN Ordering Facility: [facility] Address: [address] Performed By: #### 2 4323-04, 1988-01, 3083-09 #### [facility] CLIA [id number] [address] [place] [address] [place] Bilirubin [Mass/Vol] 0.3 mg/dL Normal 0.2-1.3 [facility] Comment on above: Order Comment: Speci men Type: BLOOD SPECIMEN [facility] [facility] Address: [place] [address] Performed By: #### 2 4323-04, 1988-01, 3083-09 #### [facility] CLIA [id number] [address] [place] [address] [place] Calcium [Mass/Vol] 8.6 mg/dL Normal 8.5-10.2 [facility] Comment on above: Order Comment: Speci men Type: BLOOD SPECIMEN Ordering Facility: [facility] Address: [place] [address] Performed By: #### 2 8, 1988-01, 3083-09 #### [facility] CLIA [id number] [address] [place] [address] [place] Chloride [Moles/Vol] 98 mmol/L Normal 97-105 [facility] Comment on above: Order Comment: Speci men Type: BLOOD SPECIMEN Ordering Facility: [facility] Address: [address] [phone] Performed By: #### 2 43238, 1988-01, 3083-09 #### [facility] CLIA [id number] [address] [place] [address] [place] CO2 [Moles/Vol] 25 mmol/L Normal 22-30 [facility] Comment on above: Order Comment: Speci men Type: BLOOD SPECIMEN Ordering Facility: [facility] Address: [address] Performed By: #### 2 4328, 1988-01, 3083-09 #### [facility] CLIA [id number] [place] Creatinine [Mass/Vol] 0.65 mg/dL Normal 0.58-0.96 [facility] Comment on above: Order Comment: Speci men Type: BLOOD SPECIMEN Ordering Facility: [facility] Address: [address] [place] [address] Performed By: #### 2 4328, 1988-01, 3083-09 #### [facility] CLIA [id number] [place] ESTIMATED GLOMERULAR FILTRATION RATE 118 mL/min/1.73m??? Normal >=60 [facility] Comment on above: Order Comment: Speci men Type: BLOOD SPECIMEN Ordering Facility: [facility] Address: [address] [place] [address] Result Comment: Ana mated Glomerular Filtration Rate (eGFR) is calculated using the 2020 CKD-EPI creatinine equation. This equation utilizes serum creatinine, sex, and age as parameters. The creatinine assay has traceable calibration to isotope dilution-mass spectrometry. Refer to KDIGO guidelines for clinical interpretation. In patients with unstable renal function, e.g. those with acute kidney injury, the eGFR may not accurately reflect actual GFR. Performed By: #### 2 4323-8, 1988-01, 3083-09 #### [facility] CLIA [id number] [address] [place] [address] [place] Glucose [Mass/Vol] 107 mg/dL High 74-99 [facility] Comment on above: Order Comment: Serena franks Type: BLOOD SPECIMEN Ordering Facility: [facility] Address: [address] [phone] Result Comment: The [place] Diabetes Association (ADA) provides guidance for cutoff values for fasting glucose and random glucose. The ADA defines fasting as no caloric intake for at least 8 hours. Fasting plasma glucose results between 100 to 125 mg/dL indicate increased risk for diabetes (prediabetes). Fasting plasma glucose results greater than or equal to 126 mg/dL meet the criteria for diagnosis of diabetes. In the absence of unequivocal hyperglycemia, results should be confirmed by repeat testing. In a patient with classic symptoms of hyperglycemia or hyperglycemic crisis, random plasma glucose results greater than or equal to 200 mg/dL meet the criteria for diagnosis of diabetes. Reference: Standards of Medical Care in Diabetes 2016, [place] Diabetes Association. Diabetes Care. 2016.39(Suppl 1). Performed By: #### 2 43211-07, 3083-09 #### [facility] CLIA [id number] [address] [place] [address] [place] Potassium [Moles/Vol] 4.2 mmol/L Normal 3.7-5.1 [facility] Comment on above: Order Comment: Serena franks Type: BLOOD SPECIMEN [facility]ing Facility: [facility] Address: [address] [phone] Performed By: #### 2 43211-07, 3083-09 #### [facility] CLIA [id number] [address] [place] [address] [place] Protein [Mass/Vol] 7.1 g/dL Normal 6.3-8.0 [facility] Comment on above: Order Comment: Serena franks Type: BLOOD SPECIMEN [facility]ing Facility: [facility] Address: [address] Performed By: #### 2 4328, 1988-01, 3083-09 #### [facility] CLIA [id number] [address] [place] [address] [place] Sodium [Moles/Vol] 132 mmol/L Low 136-144 [facility] Comment on above: Order Comment: Speci men Type: BLOOD SPECIMEN [facility]ing Facility: [facility] Address: [address] [place] [address] Performed By: #### 2 4323-8, 1988-01, 3083-09 #### [facility] CLIA [id number] [address] [place] [address] [place] Urea nitrogen [Mass/Vol] 17 mg/dL Normal 7-21 [facility] Comment on above: Order Comment: Speci men Type: BLOOD SPECIMEN Ordering Facility: [facility] Address: [address] [place] [address] Performed By: #### 2 4323-8, 1988-01, 3083-09 #### [facility] CLIA [id number] [address] [place] [address] [place] [facility] Albumin [Mass/Vol] 4.0 g/dL 3.9 - 4.9 g/dL [facility] ALP [Catalytic activity/Vol] 92 U/L 34 - 123 U/L [facility] ALT [Catalytic activity/Vol] 32 U/L 7 - 38 U/L [facility] Anion gap [Moles/Vol] 9 mmol/L 9 - 18 mmol/L [facility] AST [Catalytic activity/Vol] 16 U/L 13 - 35 U/L [facility] Bilirubin [Mass/Vol] 0.3 mg/dL 0.2 - 1 .3 mg/dL [facility] Calcium [Mass/Vol] 8.6 mg/dL 8.5 - 10. 2 mg/dL [facility] Chloride [Moles/Vol] 98 mmol/L 97 - 10 5 mmol/L [facility] CO2 [Moles/Vol] 25 mmol/L 22 - 30 mmol/L [facility] Creatinine [Mass/Vol] 0.65 mg/dL 0.58 - 0.96 mg/dL [facility] Estimated Glomerular Filtration Rate 118 mL/min/1.73m >=60 mL/min/1.7 3m [facility] Glucose [Mass/Vol] 107 mg/dL High 74 - 99 mg/dL [facility] Potassium [Moles/Vol] 4.2 mmol/L 3.7 - 5.1 mmol/L [facility] Protein [Mass/Vol] 7.1 g/dL 6.3 - 8.0 g/dL [facility] Sodium [Moles/Vol] 132 mmol/L Low 136 - 144 mmol/L [facility] Urea nitrogen [Mass/Vol] 17 mg/dL 7 - 21 mg/dL [facility] Cyclic citrullinated peptide IgG Qnon 08-20-2022 CCP ANTIBODY IGG QUALITATIVE Negative Normal Negative [facility] Comment on above: Order Comment: Speci men Type: BLOOD SPECIMENOrdering Facility: [facility] Address: [address] [address] Performed By: #### 3 2677-7, 14781-1 ####[facility] [id number] [place] [address] [place] ESR Westergren method (Bld) [Velocity]on 08-20-2022 ESR (Bld) [Velocity] 10 mm/h Normal 0-20 [facility] Comment on above: Order Comment: Speci men Type: BLOOD SPECIMEN [facility]ing Facility: [facility] Address: [address] [address] Performed By: #### 4 537-7 #### [facility] CLIA [id number] [address] [place] [address] [place] Rheumatoid fact SerPl-aCncon 08-20-2022 Rheumatoid factor Qn [IU]/mL Normal <16 [facility] Comment on above: Order Comment: Speci men Type: BLOOD SPECIMEN [facility] Facility: [facility] Address: [address] [address] Performed By: #### 1 1572-5 #### [facility] CLIA [id number] [address] [place] [address] [place] URIC ACID BLOODon 08-20-2022 Urate [Mass/Vol] 2.9 mg/dL 2.5 - 6.6 mg/dL [facility] Urate SerPl-mCncon Urate [Mass/Vol] 2.9 mg/dL Normal 2.5-6.6 [facility] Comment on above: Order Comment: Speci men Type: BLOOD SPECIMEN [facility]ing Facility: [facility] Address: [place] [address] Performed By: #### 2 4323-8, 1987-5, 3084-1 #### [facility] CLIA [id number] [facility] [place] [address] [facility] OF [place] XR CERVICAL 4V AP/LAT/OBLon 08-20-2022 XR CERVICAL 4V AP/LAT/OBL * * *Final Report* * * DATE OF EXAM: Aug 20 2022 10:54AM VHX [id number] - XR CERVICAL 4V AP/LAT/OBL / PROCEDURE REASON: multiple diagnoses * * * * Physician Interpretation * * * * EXAMINATION / TECHNIQUE: XR CERVICAL 4V AP/LAT/OBL PATIENT/TECHNOLOGIST PROVIDED HISTORY: BILATERAL ELBOW PAIN, BONE ACHES CLINICAL INFORMATION ( PROVIDED BY ORDERING CLINICIAN) : Lateral epicondylitis of both elbows Lateral epicondylitis of both elbows Left elbow pain Right elbow pain COMPARISON: None RESULT: Counting reference: Craniocervical junction. Straightening of the normal cervical lordosis. No significant curvature. No significant spondylolisthesis. C1-C2 relationship is preserved. Vertebral body heights are preserved. No acute fracture is identified. Mild degenerative disc disease at C5-C6 with disc height loss, degenerative endplate changes, and osteophytes. Mild/minimal uncovertebral and facet arthropathy without critical osseous neural foraminal narrowing. IMPRESSION: No acute osseous abnormality. Mild degenerative changes, as described. Payroll Representative: PSCB Transcribe Date/Time: Aug 20 2022 11:28A Dictated by : MAXIME DEXTER MD This examination was interpreted and the report reviewed and electronically signed by: ALIZE SANCHEZ MD on Aug 20 2022 4:05PM EST [id number] Normal [facility] cCP IgG SerPl-aCncon 022 Cyclic citrullinated peptide IgG Qn <15 Normal <20 [facility] Comment on above: Order Comment: Speci men Type: BLOOD SPECIMENOrdering Facility: [facility] Address: [place] [address] Performed By: #### 3 2677-7, 90272-7 ####[facility] [id number] [address] [place] dsDNA Ab Ser IA-aCncon 08-20 DNA double strand Ab IA Qn (S) <12 Normal <30 [facility] Comment on above: Order Comment: Speci men Type: BLOOD SPECIMENOrdering Facility: [facility] Address: [address] [address] Result Comment: Nega tive for ds DNA Antibodies. <30 IU/mL Negative 30-74 IU/mL Equivocal >74 IU/mL Positive Performed By: #### 3 2677-7, 97679-8 ####[facility] [id number] [address] [place] PTH INTACTon 05-05-2022 PTH, Intact 13 pg/mL Critically low 15-65 [facility] Comment on above: Performed By: #### P THINT #### [facility] [address] [address] [address] Greer Nguyen VIT D 25-OH LABCORPon 2021 Vitamin D, 25-Hydroxy 39.4 ng/mL Normal 30.0-100.0 [facility] Comment on above: Result Comment: Sabine min D deficiency has been defined by the [place] of Medicine and an Endocrine Society practice guideline as a level of serum 25-OH vitamin D less than 20 ng/mL (1,2). The Endocrine Society went on to further define vitamin D insufficiency as a level between 21 and 29 ng/mL (2). 1. IOM ([place] of Medicine). 2010. Dietary reference intakes for calcium and D. [place]: The National Academies Press. 2. Willem MORELAND, Sadie EARL, Nova SHEPARD, et al. Evaluation, treatment, and prevention of vitamin D deficiency: an Endocrine Society clinical practice guideline. JCEM. 2010; 96(7):1911-30. Performed By: #### V ITADLC #### [facility] [address] [address] [address] Greer Nguyen CALCIUMon 05-04-2022 Calcium [Mass/Vol] 8.1 mg/dL Critically low 8.5-10.1 [facility] e [facility] Comment on above: Performed By: #### C A, TSH, LIVER, LIPID #### [facility] [address] [place] [address] Dr. Greer Nguyen CBC AUTO DIFFon 05-04-2022 BASO # 0.0 103/ul Normal 0.0-0.1 [facility] Comment on above: Performed By: #### C BC #### [facility] [address] [place] [address] Dr. Greer Nguyen Basophils/100 WBC (Bld) 0.4 % Normal 0.2-2.0 [facility] Comment on above: Performed By: #### C BC #### [facility] [address] [place] [address] Dr. Greer Nguyen EO # 0.1 103/ul Normal 0.0-0.7 [facility] Comment on above: Performed By: #### C BC #### [facility] [address] [place] [address] Dr. Greer Nguyen Eosinophils/100 WBC (Bld) 0.7 % Critically low 0.9-7.0 [facility] Comment on above: Performed By: #### C BC #### [facility] [address] [place] [address] Dr. Greer Nguyen Erythrocyte distribution width (RBC) [Ratio] 13.3 % Normal 11.0-15.0 [facility] Comment on above: Performed By: #### C BC #### [facility] [address] [place] [address] Dr. Greer Nguyen Hematocrit (Bld) [Volume fraction] 36.6 % Normal 36.0-48.0 [facility] Comment on above: Performed By: #### C BC #### [facility] [address] [place] [address] Dr. Greer Nguyen Hemoglobin (Bld) [Mass/Vol] 12.1 g/dL Normal 12.0-16.0 [facility] Comment on above: Performed By: #### C BC #### [facility] [address] [place] [address] Dr. Greer Nguyen IG # 0.01 10e3/ul Normal 0.00-0.03 [facility] Comment on above: Performed By: #### C BC #### [facility] [address] [place] [address] Dr. Greer Nguyen IG % 0.1 % Normal 0.0-0.5 [facility] Comment on above: Performed By: #### C BC #### [facility] [address] [place] [address] Dr. Greer Nguyen LYMPH # 2.3 103/ul Normal 1.2-3.8 [facility] Comment on above: Performed By: #### C BC #### [facility] [address] [place] [address] Dr. Greer Nguyen Lymphocytes/100 WBC (Bld) 28.4 % Normal 20.5-60.0 [facility] Comment on above: Performed By: #### C BC #### [facility] [address] [place] [address] Dr. Greer Nguyen MANUAL DIFF REQ NO Normal [facility] Comment on above: Performed By: #### C BC #### [facility] [address] [place] [address] Dr. Greer Nguyen MCH (RBC) [Entitic mass] 29.4 pg Normal 26.7-34.0 [facility] Comment on above: Performed By: #### C BC #### [facility] [address] [place] [address] Dr. Greer Nguyen MCHC (RBC) [Mass/Vol] 33.1 g/dL Normal 29.9-35.2 [facility] Comment on above: Performed By: #### C BC #### [facility] [address] [place] [address] Dr. Greer Nguyen MCV (RBC) [Entitic vol] 88.8 fL Normal 81.0-99.0 [facility] Comment on above: Performed By: #### C BC #### [facility] [address] [address] [address] Greer Nguyen MONO # 0.5 103/ul Normal 0.3-0.8 [facility] Comment on above: Performed By: #### C BC #### [facility] [address] [address] [address] Greer Nguyen Monocytes/100 WBC (Bld) 6.0 % Normal 1.7-12.0 [facility] Comment on above: Performed By: #### C BC #### [facility] [address] [place] [address] Dr. Greer Nguyen NEUT # 5.2 103/ul Normal 1.4-6.5 [facility] Comment on above: Performed By: #### C BC #### [facility] [address] [place] [address] Dr. Greer Nguyen Neutrophils/100 WBC (Bld) 64.4 % Normal 43.0-75.0 [facility] Comment on above: Performed By: #### C BC #### [facility] [address] [place] [address] Dr. Greer Nguyen Platelet mean volume (Bld) [Entitic vol] 8.8 fL Critically low 9.5-13.5 [facility] Comment on above: Performed By: #### C BC #### [facility] [address] [place] [address] Dr. Greer Nguyen PLT 348 103/ul Normal 150-450 [facility] Comment on above: Performed By: #### C BC #### [facility] [address] [place] [address] Dr. Greer Nguyen RBC 4.12 106/ul Critically low 4.20-5.40 [facility] Comment on above: Performed By: #### C BC #### [facility] [address] [place] [address] Dr. Greer Nguyen WBC 8.1 103/ul Normal 4.0-11.0 [facility] Comment on above: Performed By: #### C BC #### [facility] [address] [place] [address] Dr. Greer Nguyen FERRITINon 05-04-2022 Ferritin [Mass/Vol] 95.0 ng/mL Normal 6.2-137.0 [facility] Comment on above: Performed By: #### F ERR, B12FOL, FETIBC #### [facility] [address] [address] [address] Greer Nguyen GLYCOHEMOGLOBIN A1Con 2021 ADA RECOMMENDATION SEE BELOW Normal [facility] Comment on above: Result Comment: ADA RECOMMENDED LIMIT 4.0 - 6.0 ADA THERAPEUTIC TARGET < 7.0 ACTION SUGGESTED > 7.0 Performed By: #### A 1C #### [facility] [address] [address] [address] Greer Nguyen Glucose [Mass/Vol] 117 mg/dL Normal [facility] Comment on above: Performed By: #### A 1C #### [facility] [address] [address] [address] Greer Nguyen HbA1c (Bld) [Mass fraction] 5.7 % Normal 4.5-6.2 [facility] Comment on above: Performed By: #### A 1C #### [facility] [address] [address] [address] Greer Nguyen IRON AND TIBCon 05-04-2022 % SATURATION 23.2 % Normal [facility] Comment on above: Performed By: #### F ERR, B12FOL, FETIBC #### [facility] [address] [address] [address] Greer Nguyen Iron [Mass/Vol] 63.0 ug/dL Normal 50.0-170.0 [facility] Comment on above: Performed By: #### F ERR, B12FOL, FETIBC #### [facility] [address] [address] [address] Greer Nguyen TIBC DIRECT 271.0 ug/dL Normal 250.0-450. 0 [facility] Comment on above: Performed By: #### F ERR, B12FOL, FETIBC #### [facility] [address] [address] [address] Greer Nguyen LIPID PROFILEon 05-04-2022 CHOL-HDL RATIO NORM SEE BELOW Normal [facility] Comment on above: Result Comment: 3.3 - 4.4 LOW RISK 4.4 - 7.1 AVERAGE RISK 7.1 - 11.0 MODERATE RISK >11.0 HIGH RISK Performed By: #### C A, TSH, LIVER, LIPID #### [facility] [address] [address] [address] Greer Nguyen Cholesterol [Mass/Vol] 144 mg/dL Normal <=200 [facility] Comment on above: Performed By: #### C A, TSH, LIVER, LIPID #### [facility] [address] [address] [address] Greer Nguyen Cholesterol in HDL [Mass/Vol] 45 mg/dL Normal 40-60 [facility] Comment on above: Performed By: #### C A, TSH, LIVER, LIPID #### [facility] [address] [address] [address] Greer Nguyen Cholesterol in LDL [Mass/Vol] 92.8 mg/dL Normal [facility] Comment on above: Performed By: #### C A, TSH, LIVER, LIPID #### [facility] [address] [address] [address] Greer Nguyen Cholesterol.total/Ch olesterol in HDL [Mass ratio] 3.2 {ratio} Normal [facility] Comment on above: Performed By: #### C A, TSH, LIVER, LIPID #### [facility] [address] [address] [address] Greer Ngyuen HDL NORMAL > or = 60 mg/dl - LO W CARDIOVASCULAR RISK <40 mg/dl - HIGH CARDIOVASCULAR RISK Normal [facility] Comment on above: Performed By: #### C A, TSH, LIVER, LIPID #### [facility] [address] [address] [address] Greer Nguyen LDL CALC NORMAL SEE BELOW Normal [facility] Comment on above: Result Comment: <100 mg/dl OPTIMAL 100 - 129 mg/dl NEAR OR ABOVE OPTIMAL 130 - 159 mg/dl BORDERLINE HIGH 160 - 189 mg/dl HIGH >190 mg/dl VERY HIGH Performed By: #### C A, TSH, LIVER, LIPID #### [facility] [address] [address] [address] Greer Nguyen Triglyceride [Mass/Vol] 31 mg/dL Normal <=150 [facility] Comment on above: Performed By: #### C A, TSH, LIVER, LIPID #### [facility] [address] [address] [address] Greer Nguyen VLDL CALC 6.2 mg/dL Normal [facility] Comment on above: Performed By: #### C A, TSH, LIVER, LIPID #### [facility] [address] [address] [address] Greer Nguyen LIVER PROFILEon 05-04-2022 Albumin [Mass/Vol] 3.2 g/dL Critically low 3.4-5.0 Th [facility] Comment on above: Performed By: #### C A, TSH, LIVER, LIPID #### [facility] [address] [place] [address] Dr. Greer Nguyen Albumin/Globulin [Mass ratio] 0.9 {ratio} Normal [facility] Comment on above: Performed By: #### C A, TSH, LIVER, LIPID #### [facility] [address] [place] [address] Dr. rGeer Nguyen ALP [Catalytic activity/Vol] 91 U/L Normal 46-116 [facility] Comment on above: Performed By: #### C A, TSH, LIVER, LIPID #### [facility] [address] [place] [address] Dr. Greer Nguyen ALT [Catalytic activity/Vol] 31 U/L Normal 14-59 [facility] Comment on above: Performed By: #### C A, TSH, LIVER, LIPID #### [facility] [address] [address] [address] Greer Nguyen AST [Catalytic activity/Vol] 14 U/L Critically low 15-37 [facility] Comment on above: Performed By: #### C A, TSH, LIVER, LIPID #### [facility] [address] [address] [address] Greer Nguyen BILI, CONJUGATED 0.1 mg/dL Normal 0.0-0.2 [facility] Comment on above: Performed By: #### C A, TSH, LIVER, LIPID #### [facility] [address] [place] [address] Dr. Greer Nguyen Bilirubin [Mass/Vol] 0.2 mg/dL Normal 0.2-1.0 [facility] Comment on above: Performed By: #### C A, TSH, LIVER, LIPID #### [facility] [address] [place] [address] Dr. Greer Nguyen Globulin (S) [Mass/Vol] 3.7 g/dL Normal [facility] Comment on above: Performed By: #### C A, TSH, LIVER, LIPID #### [facility] [address] [place] [address] Dr. Greer Nguyen Protein [Mass/Vol] 6.9 g/dL Normal 6.4-8.2 [facility] Comment on above: Performed By: #### C A, TSH, LIVER, LIPID #### [facility] [address] [place] [address] Dr. Greer Nguyen TSHon 05-04-2022 TSH 1.744 uIU/mL Normal 0.358-3.74 0 [facility] Comment on above: Performed By: #### C A, TSH, LIVER, LIPID #### [facility] [address] [place] [address] Dr. Greer Nguyen VIT B12 AND FOLATEon 022 Cobalamin (Vitamin B12) [Mass/Vol] 893.0 pg/mL Normal 193.0-986. 0 [facility] Comment on above: Performed By: #### C A, TSH, LIVER, LIPID #### [facility] [address] [place] [address] Dr. Greer Nguyen FOLATE 23.40 ng/mL Normal 8.60-58.90 [facility] Comment on above: Performed By: #### C A, TSH, LIVER, LIPID #### [facility] [address] [place] [address] Dr. Greer Nguyen HCG ( test) IA.rapi d Ql (U)Ordered By: Ed Malhotra on 04-17-2022 HCG ( test) Ql (U) Negative [facility] HCG ( test) IA.rapi d Ql (U)Ordered By: Ed Malhotra on 03-13-2022 HCG ( test) Ql (U) Negative [facility] XR hip BI w [id number] 11-17-19 XR hip BI w PEL1V [facility] [employer] Other XR hip BI w PEL1V [facility] [place] [facility] [employer] Other XR hip BI w PEL1V [address] [place] [address] [employer] Other XR hip BI w [place] [address] [employer] Other XR hip BI w PEL1V XRay Report [facility] Other XR hip BI w PEL1V Signed [employer] Other XR hip BI w PEL1V Patient: Michelle Rivera MR#: [id number] [facility] [place] Other XR hip BI w PEL1V 82 [employer] Other XR hip BI w PEL1V : 1985 Acct:[id number] [facility] Other XR hip BI w PEL1V Age/Sex: 36 / F ADM Date: 11/16/21 [facility] Other XR hip BI w PEL1V Loc: [facility] Room: Type : [facility] Other XR hip BI w PEL1V Attending Dr: Ed Malhotra MD [facility] Other XR hip BI w PEL1V Ordering Provider: Candis Malhotra MD [facility] Other XR hip BI w PEL1V Date of Service: 11/16/21 [facility] Other XR hip BI w PEL1V 92283) XR/XR hip BI w PEL1V: Hip pain [facility] Other XR hip BI w PEL1V Copies to: Ed Malhotra MD [facility] Other XR hip BI w PEL1V Low pelvis and bilat eral hips 11/16/2021. [facility] Other XR hip BI w PEL1V CLINICAL DATA: Long history of bilateral hip pain. [facility] Other XR hip BI w PEL1V FINDINGS: An AP view of both hips was obtained along with separate lateral views of each of the [facility] Other XR hip BI w PEL1V right and left hips for a total of 3 images. [facility] Other XR hip BI w PEL1V No acute fracture or dislocation is identified. No significant degenerative or other arthritic [facility] Other XR hip BI w PEL1V changes are seen. No bony erosion or destruction is visualized. [facility] Other XR hip BI w PEL1V X R/XR hip BI w PEL1V [facility] Other XR hip BI w PEL1V IMPRESSION: No bony abnormality. [facility] Other XR hip BI w PEL1V Impression dictated by: Libia King Jr., M.D.11/16/2021 12:22 PM [facility] Other XR hip BI w PEL1V Dictation Location: [place] [address] [facility] Other XR hip BI w PEL1V Transcribed By: CHIKI 11/16/21 [facility] Other XR hip BI w PEL1V Dictated By: Libia King Jr, MD 11/16/21 [facility] Other XR hip BI w PEL1V Signed By: Lionel Casey [employer] Other XR hip BI w PEL1V 11/16/21 1222 [facility] [place] Other Dietition Noteon 10-25-2021 Dietition Note Chief Complaint A telephone visit (audio only) between the patient (at the originating site) and the provider (at the distant site) was utilized to provide this telehealth service. obesity nutrition follow-up pre-op Active Problems Asthma, exercise induced (493.81) (J45.990) Back spasm (724.8) (M62.830) Bariatric surgery status (V45.86) (Z98.84) Benign essential HTN (401.1) (I10) Depression with anxiety (300.4) (F41.8) Fibromyalgia (729.1) (M79.7) GERD (gastroesophageal reflux disease) (530.81) (K21.9) Polina's thyroiditis (245.2) (E06.3) Heavy menses (626.2) (N92.0) Herniated disc (722.2) Metabolic syndrome (277.7) (E88.81) Migraines (346.90) (G43.909) Morbid obesity with BMI of 40.0-44.9, adult (278.01,V85.41) (E66.01,Z68.41) Pre-diabetes (790.29) (R73.03) Snoring (786.09) (R06.83) Suspected sleep apnea (781.99) (R29.818) Tendonitis (726.90) (M77.9) Surgical History History of Tonsillectomy Family History Family history of hypertension (V17.49) (Z82.49) Family history of hyperlipidemia (V18.19) (Z83.438) Family history of hypertension (V17.49) (Z82.49) Family history of type 2 diabetes mellitus (V18.0) (Z83.3) Family history of hyperlipidemia (V18.19) (Z83.438) Family history of cardiac disorder (V17.49) (Z82.49) Family history of diabetes mellitus (V18.0) (Z83.3) Social History Caffeine use (V49.89) (Z78.9) Current every day smoker (305.1) (F17.200) Five children History of marijuana use (305.23) (Z87.898) No alcohol use Unemployed (V62.0) (Z56.0) Allergies Penicillins Edema; Itching; Recorded By: Dionna Levi; 04/20/2021 4:14:36 PM Sulfa Drugs Edema; Itching; Recorded By: Dionna Lvei; 04/20/2021 4:14:36 PM Current Meds Cyclobenzaprine HCl - 10 MG Oral Tablet; TAKE 1 TABLET 3 TIMES DAILY NEEDED; Therapy: 20Apr2021 to Recorded Dispense: 0 Days ; #: Sufficient Tablet; Refill: 0;For: Back spasm; LAUREL = N; Record; Last Updated By: Dionna Levi; 04/20/2021 4:14:36 PM Atenolol 25 MG Oral Tablet; Therapy: 04Oct2021 to Recorded Dispense: 0 Days ; #: Sufficient Tablet; Refill: 0;For: Benign essential HTN; LAUREL = N; Record; Last Updated By: Nicol Padilla; 10/04/2021 11:30:31 AM CeleXA 40 MG Oral Tablet (Citalopram Hydrobromide); Therapy: 20Apr2021 to Recorded Dispense: 0 Days ; #: Sufficient Tablet; Refill: 0;For: Depression with anxiety; LAUREL = N; Record; Last Updated By: Dionna Levi; 04/20/2021 4:14:36 PM [facility] Omeprazole 20 MG Oral Tablet Delayed Release; Take 1 tablet twice daily; Therapy: 20Apr2021 to Recorded Dispense: 0 Days ; #: Sufficient Tablet; Refill: 0;For: GERD (gastroesophageal reflux disease); LAUREL = N; Record; Last Updated By: Dionna Levi; 04/20/2021 4:14:36 PM Pepcid 20 MG Oral Tablet (Famotidine); TAKE 1 TABLET TWICE DAILY; Therapy: 20Apr2021 to Recorded Dispense: 0 Days ; #: Sufficient Tablet; Refill: 0;For: GERD (gastroesophageal reflux disease); LAUREL = N; Record; Last Updated By: Dionna Levi; 04/20/2021 4:14:36 PM Ozempic (0.25 or 0.5 MG/DOSE) 2 MG/1.5ML Subcutaneous Solution Pen-injector; Therapy: [id number] to Recorded Dispense: 0 Days ; #: Sufficient X 1.5 ML Pen; Refill: 0;For: Health Maintenance; LAUREL = N; Record; Last Updated By: Nicol Padilla; 10/04/2021 11:24:08 AM Topamax 100 MG Oral Tablet (Topiramate); Therapy: [id number] to Recorded Dispense: 0 Days ; #: Sufficient Tablet; Refill: 0;For: Migraines; LAUREL = N; Record; Last Updated By: Nicol Padilla; 10/20/2021 9:07:06 AM Provider Impressions APPOINTMENT WAS CONDUCTED VIA PHONE PER COVID19 PROTOCOL AND PATIENT WEIGHT SELF REPORT. ALL MEAL PLANS, FOOD LOGS, GOAL SHEETS, AND EDUCATION HANDOUTS EMAILED TO PATIENT. S: Patient was prescribed Ozempic since early September. She was struggling to lower her weight since she was treated with steroids to help breathing after being diagnosed COVID-19 in July. She was sick for over 5 weeks. Appetite has been lower since starting Ozempic. 24 hour food recall: B: Premier Protein shake; L: ground beef with taco seasoning, lettuce, olives, cheese, TBS. sour cream; D: 4 oz. beef brady and 1/2c. potato salad; s: 1/2c. 1% cottage cheese. O: Wt: 242.0 lb Ht: 65.5 in BMI: 39.7 Goal: 5% body weight loss over the course of program Dietary recommendation: 1. Continue to drink at least 64 ounces of water and calorie free, non-carbonated, and decaffeinated beverages daily. 2. Practice the 30-30-30 rule by drinking between meals. 3. Structure your meal plan - have 3 meals and 1 snack daily. 4. Have balanced meals that always contain a good source of protein. 5. Increase intake of non-starchy vegetables. Have 5 servings fruits and vegetables daily. 6. Take a multivitamin daily. 7. Increase physical activity by 10-15 minutes to an end goal of 60 minutes 5 x per week. Topic: Portion Control Behavioral recommendation: Pt is encouraged to identify and use the appropriate serving sizes from each food group. A/P: Pt appears to have a good understanding o (more content not included)... Normal [facility] Patient Correspondenceon Patient Correspondence [id number]#[id number]:127 Normal [facility] Physician Referralon 021 Physician Referral [id number]:127 [facility] Dietition Noteon 08-23-2021 Dietition Note Chief Complaint A telephone visit (audio only) between the patient (at the originating site) and the provider (at the distant site) was utilized to provide this telehealth service. obesity nutrition follow-up pre-op Active Problems Asthma, exercise induced (493.81) (J45.990) Back spasm (724.8) (M62.830) Bariatric surgery status (V45.86) (Z98.84) Depression with anxiety (300.4) (F41.8) Fibromyalgia (729.1) (M79.7) GERD (gastroesophageal reflux disease) (530.81) (K21.9) Polina's thyroiditis (245.2) (E06.3) Heavy menses (626.2) (N92.0) Herniated disc (722.2) Metabolic syndrome (277.7) (E88.81) Migraines (346.90) (G43.909) Morbid obesity with BMI of 40.0-44.9, adult (278.01,V85.41) (E66.01,Z68.41) Pre-diabetes (790.29) (R73.03) Snoring (786.09) (R06.83) Suspected sleep apnea (781.99) (R29.818) Tendonitis (726.90) (M77.9) Surgical History History of Tonsillectomy Family History Family history of hypertension (V17.49) (Z82.49) Family history of hyperlipidemia (V18.19) (Z83.438) Family history of hypertension (V17.49) (Z82.49) Family history of type 2 diabetes mellitus (V18.0) (Z83.3) Family history of hyperlipidemia (V18.19) (Z83.438) Family history of cardiac disorder (V17.49) (Z82.49) Family history of diabetes mellitus (V18.0) (Z83.3) Social History Caffeine use (V49.89) (Z78.9) Current every day smoker (305.1) (F17.200) Five children History of marijuana use (305.23) (Z87.898) No alcohol use Unemployed (V62.0) (Z56.0) Allergies Penicillins Edema; Itching; Recorded By: Dionna Levi; 04/20/2021 4:14:36 PM Sulfa Drugs Edema; Itching; Recorded By: Dionna Levi; 04/20/2021 4:14:36 PM Current Meds Cyclobenzaprine HCl - 10 MG Oral Tablet; TAKE 1 TABLET 3 TIMES DAILY NEEDED; Therapy: [id number] to Recorded Dispense: 0 Days ; #: Sufficient Tablet; Refill: 0;For: Back spasm; LAUREL = N; Record; Last Updated By: Dionna Levi; 04/20/2021 4:14:36 PM CeleXA 40 MG Oral Tablet (Citalopram Hydrobromide); Therapy: [id number] to Recorded Dispense: 0 Days ; #: Sufficient Tablet; Refill: 0;For: Depression with anxiety; LAUREL = N; Record; Last Updated By: Dionna Levi; 04/20/2021 4:14:36 PM Wellbutrin XL 150 MG Oral Tablet Extended Release 24 Hour (BuPROPion HCl ER (XL)); TAKE 1 TABLET DAILY DIRECTED; Therapy: [id number] to Recorded Dispense: 0 Days ; #: Sufficient Tablet; Refill: 0;For: Depression with anxiety; LAUREL = N; Record; Last Updated By: Dionna Levi; 04/20/2021 4:14:36 PM [facility] Omeprazole 20 MG Oral Tablet Delayed Release; Take 1 tablet twice daily; Therapy: [id number] to Recorded Dispense: 0 Days ; #: Sufficient Tablet; Refill: 0;For: GERD (gastroesophageal reflux disease); LAUREL = N; Record; Last Updated By: Dionna Levi; 04/20/2021 4:14:36 PM Pepcid 20 MG Oral Tablet (Famotidine); TAKE 1 TABLET TWICE DAILY; Therapy: 20Apr2021 to Recorded Dispense: 0 Days ; #: Sufficient Tablet; Refill: 0;For: GERD (gastroesophageal reflux disease); LAUREL = N; Record; Last Updated By: Dionna Levi; 04/20/2021 4:14:36 PM Topamax 50 MG Oral Tablet (Topiramate); TAKE 1 TABLET DAILY; Therapy: 20Apr2021 to Recorded Dispense: 0 Days ; #: Sufficient Tablet; Refill: 0;For: Migraines; LAUREL = N; Record; Last Updated By: Dionna Levi; 04/20/2021 4:14:36 PM Provider Impressions S: Patient has been under a lot of stress. Recovering from COVID-19 and notes she was on steroids for almost 3 weeks. Her 2 year old and 4 year old were recently in the ICU and are home recovering. Has not been able to focus on modifying eating and exercise habits. Hoping to pursue WLS and planning on scheduling visits for medical clearances in the next few months. O: no weight today A: Patient has been under a lot of stress and has not been able to consistently focus on diet and exercise improvement. P: Patient will focus on stress management and her family's health. Will call at a later date to schedule follow-up and appointments for medical clearances. Patient Discussion/Summary A: Patient has been under a lot of stress and has not been able to consistently focus on diet and exercise improvement. P: Patient will focus on stress management and her family's health. Will call at a later date to schedule follow-up and appointments for medical clearances. Signatures Electronically signed by : Allyn Mcdaniels RD; Aug 23 2021 1:24PM EST (Author) Normal [facility] Dietition Noteon 07-07-2021 Dietition Note Chief Complaint A telephone visit (audio only) between the patient (at the originating site) and the provider (at the distant site) was utilized to provide this telehealth service. obesity nutrition follow-up pre-op Active Problems Asthma, exercise induced (493.81) (J45.990) Back spasm (724.8) (M62.830) Bariatric surgery status (V45.86) (Z98.84) Depression with anxiety (300.4) (F41.8) Fibromyalgia (729.1) (M79.7) GERD (gastroesophageal reflux disease) (530.81) (K21.9) Polina's thyroiditis (245.2) (E06.3) Heavy menses (626.2) (N92.0) Herniated disc (722.2) Metabolic syndrome (277.7) (E88.81) Migraines (346.90) (G43.909) Morbid obesity with BMI of 40.0-44.9, adult (278.01,V85.41) (E66.01,Z68.41) Pre-diabetes (790.29) (R73.03) Snoring (786.09) (R06.83) Suspected sleep apnea (781.99) (R29.818) Tendonitis (726.90) (M77.9) Surgical History History of Tonsillectomy Family History Family history of hypertension (V17.49) (Z82.49) Family history of hyperlipidemia (V18.19) (Z83.438) Family history of hypertension (V17.49) (Z82.49) Family history of type 2 diabetes mellitus (V18.0) (Z83.3) Family history of hyperlipidemia (V18.19) (Z83.438) Family history of cardiac disorder (V17.49) (Z82.49) Family history of diabetes mellitus (V18.0) (Z83.3) Social History Caffeine use (V49.89) (Z78.9) Current every day smoker (305.1) (F17.200) Five children History of marijuana use (305.23) (Z87.898) No alcohol use Unemployed (V62.0) (Z56.0) Allergies Penicillins Edema; Itching; Recorded By: Dionna Levi; 04/20/2021 4:14:36 PM Sulfa Drugs Edema; Itching; Recorded By: Dionna Levi; 04/20/2021 4:14:36 PM Current Meds Cyclobenzaprine HCl - 10 MG Oral Tablet; TAKE 1 TABLET 3 TIMES DAILY NEEDED; Therapy: [id number] to Recorded Dispense: 0 Days ; #: Sufficient Tablet; Refill: 0;For: Back spasm; LAUREL = N; Record; Last Updated By: Dionna Levi; 04/20/2021 4:14:36 PM CeleXA 40 MG Oral Tablet (Citalopram Hydrobromide); Therapy: 20Apr2021 to Recorded Dispense: 0 Days ; #: Sufficient Tablet; Refill: 0;For: Depression with anxiety; LAUREL = N; Record; Last Updated By: Dionna Levi; 04/20/2021 4:14:36 PM Wellbutrin XL 150 MG Oral Tablet Extended Release 24 Hour (BuPROPion HCl ER (XL)); TAKE 1 TABLET DAILY DIRECTED; Therapy: 20Apr2021 to Recorded Dispense: 0 Days ; #: Sufficient Tablet; Refill: 0;For: Depression with anxiety; LAUREL = N; Record; Last Updated By: Dionna Levi; 04/20/2021 4:14:36 PM CVS Omeprazole 20 MG Oral Tablet Delayed Release; Take 1 tablet twice daily; Therapy: 20Apr2021 to Recorded Dispense: 0 Days ; #: Sufficient Tablet; Refill: 0;For: GERD (gastroesophageal reflux disease); LAUREL = N; Record; Last Updated By: Dionna Levi; 04/20/2021 4:14:36 PM Pepcid 20 MG Oral Tablet (Famotidine); TAKE 1 TABLET TWICE DAILY; Therapy: 20Apr2021 to Recorded Dispense: 0 Days ; #: Sufficient Tablet; Refill: 0;For: GERD (gastroesophageal reflux disease); LAUREL = N; Record; Last Updated By: Dionna Levi; 04/20/2021 4:14:36 PM Topamax 50 MG Oral Tablet (Topiramate); TAKE 1 TABLET DAILY; Therapy: 20Apr2021 to Recorded Dispense: 0 Days ; #: Sufficient Tablet; Refill: 0;For: Migraines; LAUREL = N; Record; Last Updated By: Dionna Levi; 04/20/2021 4:14:36 PM Provider Impressions APPOINTMENT WAS CONDUCTED VIA PHONE PER COVID19 PROTOCOL AND PATIENT WEIGHT SELF REPORT Meal plans, food logs, goal sheets, and education handout emailed to patient. S: Patient and her children have been sick with upper respiratory infections in recent weeks, Currently on 20 mg. Prednisone twice daily for at least 5 days to help breathing. Has not been able to focus on diet modifications. She has not been able to exercise. Energy has been low. Tested negative for COVID-19. Still desires WLS and hoping to work on imrpving eating and exercise habits once she feels better. O: Wt: 250.0 lb Ht: 65.5 in BMI: 41.0 Goal: 5% body weight loss over the course of program Dietary recommendation: 1. Work on drinking at least 64 ounces of water and calorie free, non-carbonated, and decaffeinated beverages daily. 2. Practice the 30-30-30 rule by drinking between meals. 3. Structure your meal plan - have 3 meals and 1 snack daily. 4. Have balanced meals that always contain a good source of protein. Focus on eating healthfully, smaller amounts as tolerated. 5. Increase intake of non-starchy vegetables. Have 5 servings fruits and vegetables daily. 6. Take a multivitamin daily. 7. When feeling better, increase physical activity by 10-15 minutes to an end goal of 60 minutes 5 x per week. Group Topic: Healthy Holiday Meal Planning Behavioral recommendation: Patient is encouraged to choose healthy foods, along with ways to modify recipes as part of meal planning during the holiday season. A/P: Pt appears to have a good understanding of how to incorporate health foods as part of holiday meal plans into her daily meal pattern. Ms. Rivera (more content not included)... Normal [email or web address] Dietition Noteon 06-06-2021 Dietition Note Chief Complaint A telephone visit (audio only) between the patient (at the originating site) and the provider (at the distant site) was utilized to provide this telehealth service. obesity nutrition follow-up pre-op Active Problems Asthma, exercise induced (493.81) (J45.990) Back spasm (724.8) (M62.830) Bariatric surgery status (V45.86) (Z98.84) Depression with anxiety (300.4) (F41.8) Fibromyalgia (729.1) (M79.7) GERD (gastroesophageal reflux disease) (530.81) (K21.9) Polina's thyroiditis (245.2) (E06.3) Heavy menses (626.2) (N92.0) Herniated disc (722.2) Metabolic syndrome (277.7) (E88.81) Migraines (346.90) (G43.909) Morbid obesity with BMI of 40.0-44.9, adult (278.01,V85.41) (E66.01,Z68.41) Pre-diabetes (790.29) (R73.03) Snoring (786.09) (R06.83) Suspected sleep apnea (781.99) (R29.818) Tendonitis (726.90) (M77.9) Surgical History History of Tonsillectomy Family History Family history of hypertension (V17.49) (Z82.49) Family history of hyperlipidemia (V18.19) (Z83.438) Family history of hypertension (V17.49) (Z82.49) Family history of type 2 diabetes mellitus (V18.0) (Z83.3) Family history of hyperlipidemia (V18.19) (Z83.438) Family history of cardiac disorder (V17.49) (Z82.49) Family history of diabetes mellitus (V18.0) (Z83.3) Social History Caffeine use (V49.89) (Z78.9) Current every day smoker (305.1) (F17.200) Five children History of marijuana use (305.23) (Z87.898) No alcohol use Unemployed (V62.0) (Z56.0) Allergies Penicillins Edema; Itching; Recorded By: Dionna Levi; 04/20/2021 4:14:36 PM Sulfa Drugs Edema; Itching; Recorded By: Dionna Levi; 04/20/2021 4:14:36 PM Current Meds Cyclobenzaprine HCl - 10 MG Oral Tablet; TAKE 1 TABLET 3 TIMES DAILY NEEDED; Therapy: [id number] to Recorded Dispense: 0 Days ; #: Sufficient Tablet; Refill: 0;For: Back spasm; LAUREL = N; Record; Last Updated By: Dionna Levi; 04/20/2021 4:14:36 PM CeleXA 40 MG Oral Tablet (Citalopram Hydrobromide); Therapy: 20Apr2021 to Recorded Dispense: 0 Days ; #: Sufficient Tablet; Refill: 0;For: Depression with anxiety; LAUREL = N; Record; Last Updated By: Dionna Levi; 04/20/2021 4:14:36 PM Wellbutrin XL 150 MG Oral Tablet Extended Release 24 Hour (BuPROPion HCl ER (XL)); TAKE 1 TABLET DAILY DIRECTED; Therapy: 20Apr2021 to Recorded Dispense: 0 Days ; #: Sufficient Tablet; Refill: 0;For: Depression with anxiety; LAUREL = N; Record; Last Updated By: Dionna Levi; 04/20/2021 4:14:36 PM [facility]S Omeprazole 20 MG Oral Tablet Delayed Release; Take 1 tablet twice daily; Therapy: 20Apr2021 to Recorded Dispense: 0 Days ; #: Sufficient Tablet; Refill: 0;For: GERD (gastroesophageal reflux disease); LAUREL = N; Record; Last Updated By: Dionna Levi; 04/20/2021 4:14:36 PM Pepcid 20 MG Oral Tablet (Famotidine); TAKE 1 TABLET TWICE DAILY; Therapy: 20Apr2021 to Recorded Dispense: 0 Days ; #: Sufficient Tablet; Refill: 0;For: GERD (gastroesophageal reflux disease); LAUREL = N; Record; Last Updated By: Dionna Levi; 04/20/2021 4:14:36 PM Topamax 50 MG Oral Tablet (Topiramate); TAKE 1 TABLET DAILY; Therapy: 20Apr2021 to Recorded Dispense: 0 Days ; #: Sufficient Tablet; Refill: 0;For: Migraines; LAUREL = N; Record; Last Updated By: Dionna Levi; 04/20/2021 4:14:36 PM Provider Impressions APPOINTMENT WAS CONDUCTED VIA PHONE PER COVID19 PROTOCOL AND PATIENT WEIGHT SELF REPORT. MEAL PLANS, FOOD LOGS, GOAL SHEETS, AND EDUCATION HANDOUT EMAILED TO PATIENT. Meal plans, food logs, goal sheets, and education handout emailed to patient. S: The patient has been struggling with stress management and has not been watching her diet closely. Snacking in the middle of the night. She has not been working with a therapist in the past 9 months but willing to start again. Goal: 5% body weight loss over the course of program Dietary recommendation: 1. Continue to work on drinking at least 64 ounces of water and calorie free fluids, non-carbonated, and decaffeinated beverages daily. 2. Practice the 30-30-30 rule by drinking between meals. 3. Structure your meal plan - have 3 meals and 1 snack daily. Track your intake with a goal of 1400 calories daily. 4. Have balanced meals that always contain a good source of protein. 5. Increase intake of non-starchy vegetables. Have 5 servings fruits and vegetables daily. 6. Take a multivitamin daily. 7. Increase physical activity by 10-15 minutes to an end goal of 60 minutes 5 x per week. 8 .Keep problem foods out of the house and work on eliminating snacking in the middle of the night 9. Work on getting any support you need and consider attending support groups regularly. Behavioral recommendation: Pt will be able to identify eating triggers and how to avoid them. A/P: Pt appears to be able to recognize eating triggers and how to avoid eating when not hungry and/or not eating when it is not time for a meal or snack. Pt will continue to practice being mindful of healthy eating habits (more content not included)... Normal [facility] Dietition Noteon 04-28-2021 Dietition Note Chief Complaint A telephone visit (audio only) between the patient (at the originating site) and the provider (at the distant site) was utilized to provide this telehealth service. obesity initial nutrition evaluation Active Problems Asthma, exercise induced (493.81) (J45.990) Back spasm (724.8) (M62.830) Bariatric surgery status (V45.86) (Z98.84) Depression with anxiety (300.4) (F41.8) Fibromyalgia (729.1) (M79.7) GERD (gastroesophageal reflux disease) (530.81) (K21.9) Polina's thyroiditis (245.2) (E06.3) Heavy menses (626.2) (N92.0) Herniated disc (722.2) Metabolic syndrome (277.7) (E88.81) Migraines (346.90) (G43.909) Morbid obesity with BMI of 40.0-44.9, adult (278.01,V85.41) (E66.01,Z68.41) Pre-diabetes (790.29) (R73.03) Snoring (786.09) (R06.83) Suspected sleep apnea (781.99) (R29.818) Tendonitis (726.90) (M77.9) Surgical History History of Tonsillectomy Family History Family history of hypertension (V17.49) (Z82.49) Family history of hyperlipidemia (V18.19) (Z83.438) Family history of hypertension (V17.49) (Z82.49) Family history of type 2 diabetes mellitus (V18.0) (Z83.3) Family history of hyperlipidemia (V18.19) (Z83.438) Family history of cardiac disorder (V17.49) (Z82.49) Family history of diabetes mellitus (V18.0) (Z83.3) Social History Caffeine use (V49.89) (Z78.9) Current every day smoker (305.1) (F17.200) Five children History of marijuana use (305.23) (Z87.898) No alcohol use Unemployed (V62.0) (Z56.0) Allergies Penicillins Edema; Itching; Recorded By: Dionna Easton; 04/20/2021 4:14:36 PM Sulfa Drugs Edema; Itching; Recorded By: Dionna Easton; 04/20/2021 4:14:36 PM Current Meds Cyclobenzaprine HCl - 10 MG Oral Tablet; TAKE 1 TABLET 3 TIMES DAILY NEEDED; Therapy: 20Apr2021 to Recorded Dispense: 0 Days ; #: Sufficient Tablet; Refill: 0;For: Back spasm; LAUREL = N; Record; Last Updated By: Dionna Easton; 04/20/2021 4:14:36 PM CeleXA 40 MG Oral Tablet; Therapy: 20Apr2021 to Recorded Dispense: 0 Days ; #: Sufficient Tablet; Refill: 0;For: Depression with anxiety; LAUREL = N; Record; Last Updated By: Dionna Easton; 04/20/2021 4:14:36 PM Wellbutrin XL 150 MG Oral Tablet Extended Release 24 Hour; TAKE 1 TABLET DAILY DIRECTED; Therapy: 20Apr2021 to Recorded Dispense: 0 Days ; #: Sufficient Tablet; Refill: 0;For: Depression with anxiety; LAUREL = N; Record; Last Updated By: Dionna Easton; 04/20/2021 4:14:36 PM [facility] Omeprazole 20 MG Oral Tablet Delayed Release; Take 1 tablet twice daily; Therapy: 20Apr2021 to Recorded Dispense: 0 Days ; #: Sufficient Tablet; Refill: 0;For: GERD (gastroesophageal reflux disease); LAUREL = N; Record; Last Updated By: Dionna Easton; 04/20/2021 4:14:36 PM Pepcid 20 MG Oral Tablet; TAKE 1 TABLET TWICE DAILY; Therapy: 20Apr2021 to Recorded Dispense: 0 Days ; #: Sufficient Tablet; Refill: 0;For: GERD (gastroesophageal reflux disease); LAUREL = N; Record; Last Updated By: Dionna Easton; 04/20/2021 4:14:36 PM Topamax 50 MG Oral Tablet; TAKE 1 TABLET DAILY; Therapy: 20Apr2021 to Recorded Dispense: 0 Days ; #: Sufficient Tablet; Refill: 0;For: Migraines; LAUREL = N; Record; Last Updated By: Dionna Easton; 04/20/2021 4:14:36 PM Provider Impressions Surgeon: Marcelino Patient is considering: gastric bypass surgery ASSESSMENT: Current weight in pounds:248.0 Ht: 65.5 in BMI: 40.6 Initial start weight in pounds: 248.0 Pre-Op Excess Body Weight (EBW) in pounds: 98.0 Target Post-Op weight goal in pounds: 169.6 - 189.8 Food allergies/intolerances: slight lactose Chewing/Swallowing/Dentitio n: no Nausea / Vomiting / Hx Gastroparesis: has acid reflux managed with Omeprezole Diarrhea/ Constipation: some loose stools with dairy products Exercise level: walks most days 15 min. Smoking/Tobacco use: smoking occasionally Vitamins/Minerals supplements: no Medications: see list Past diet attempts: intermittent fasting; fasting for multiple days at a time, herbal life; Adipex, Paleo Hours of sleep/night: 6-7 24 HOUR RECALL/DIET HISTORY: Breakfast: skip Snack: no Lunch: sandwich on whole wheat with turkey, baked chips Snack: milk Dinner: 2 wraps with chicken, shrimp and vegetables in a flour tortilla Snack:milk Beverages: water, whole milk, regular pop, juice Alcohol: no Person responsible for cooking AND shopping? self How often do you eat sweet snacks? 1x/wk How often do you eat savory snacks? 3-4x/wk How often do you eat out? 2/month Do you feel overly stuffed? sometimes Binge Eating? occasionally Night Eating? occasionally Emotional Eating? no READINESS TO LEARN: Motivation to learn: Interested Understanding of instruction: Good Anticipated Compliance: Good Family Support: spouse and father Educational Materials Provided: Pre-op Diet and sample menus Nutrition Guidelines for Gastric Bypass Schedules for MSWL class and support group Calorie meal plan Goals sheet This appt was conducted via phone d/ (more content not included)... Normal [facility] Bariatric Surgery - Initialo n 04-27-2021 Bariatric Surgery - Initial Diagnoses/Problems Assessed GERD (gastroesophageal reflux disease) (530.81) (K21.9) Metabolic syndrome (277.7) (E88.81) Polina's thyroiditis (245.2) (E06.3) Herniated disc (722.2) Bariatric surgery status (V45.86) (Z98.84) Back spasm (724.8) (M62.830) Tendonitis (726.90) (M77.9) Heavy menses (626.2) (N92.0) Fibromyalgia (729.1) (M79.7) Pre-diabetes (790.29) (R73.03) Suspected sleep apnea (781.99) (R29.818) Morbid obesity with BMI of 40.0-44.9, adult (278.01,V85.41) (E66.01,Z68.41) Depression with anxiety (300.4) (F41.8) Snoring (786.09) (R06.83) Asthma, exercise induced (493.81) (J45.990) History of Tonsillectomy Family history of type 2 diabetes mellitus (V18.0) (Z83.3) : Father Family history of hypertension (V17.49) (Z82.49) : Mother, Father Family history of cardiac disorder (V17.49) (Z82.49) : Maternal Grandmother Family history of diabetes mellitus (V18.0) (Z83.3) : Maternal Grandmother Current every day smoker (305.1) (F17.200) No alcohol use Caffeine use (V49.89) (Z78.9) History of marijuana use (305.23) (Z87.898) Unemployed (V62.0) (Z56.0) Five children Migraines (346.90) (G43.909) Orders SocHx: Current every day smoker Tobacco Use Screening; Status:Complete; Done: [id number] Patient Discussion/Summary The following are some lifestyle changes you should begin to prepare you for your a Janelle-en-Y gastric bypass surgery. Eliminate soda and other carbonated beverages from your diet. Carbonation will not be well tolerated after surgery. Try Propel, Vitamin Water Zero, Sobe Lifewater, Crystal Light or water. Increase fluid consumption to 64 oz daily. Do not drink within 30 minutes of eating as this will liquefy your food and make you hungry more quickly. Exercise for 30-60 minutes daily. Brisk walking, bike riding and swimming are all examples of healthy exercise. If you are unable to exercise we recommend seated exercise. Do not skip meals. Take a multivitamin daily. Lose weight. In preparation for your surgery it is important that you begin making healthier food choices now. Our dietitian will meet with you to help you select foods lower in calories and higher in nutrition. We would like you to lose at least 1015 lbs prior to surgery. Increase your protein intake to 60 grams per day. Plan your meals. Stop smoking. The following are required before surgery: Letter from your doctor and or any other physician supporting your decision to have surgery. Documentation of Comorbidities. Nutritional evaluation. Lab Work:. Navigator's . Navigator's . Psychological Evaluation . Cardiac clearance. Sleep study. Please refer to your email for all handouts for bariatric surgery Orders have been placed for you in our computer system for tests and referrals Please have your labs completed today, we will call you with results Call with any questions, we look forward to helping you along on your journey! Provider Impressions Procedure and Risk Discussed: Gastric Bypass: We discussed the risks and benefits of the gastric bypass at length. The patient understands the risks and benefits of the procedure and how the procedure is performed. The patient understands the risks include but are not limited to bleeding, infection, DVT, PE, pneumonia, myocardial infarction, leak along the staple lines, weight regain. Gastric Sleeve: We discussed the risks and benefits of the gastric sleeve at length. The patient understands the risks and benefits of the procedure and how the procedure is performed. The patient understands the risks include but are not limited to bleeding, infection, DVT, PE, pneumonia, myocardial infarction, leak along the staple lines, and weight regain. 36-year-old female who we reviewed both gastric sleeve and bypass. She does have reflux disease she is prediabetes along with thyroid disease. Is struggling with weight loss especially with rebound food and making choices for meals especially liquid meals. Her plan is to enroll and see how she does with our program and the small meals frequent eating process. If she struggles with this we discussed that this is a mainstay of the surgery along with exercising. She will need an EGD. She may have irritable bowel syndrome and lactose intolerance or gluten sensitivity she was planning to see her chief pilot for this I agree that she should visit with them. Chief Complaint The patient is being seen initial visit. An interactive audio and video telecommunication system which permits real time communications between the patient (at the originating site) and provider (at the distant site) was utilized to provide this telehealth service. Verbal consent was requested and obtained from MICHELLE RIVERA on this date, 04/27/2021 08:30 AM , for a telehealth visit. Adult Risk Screening There are spiritual/cultural practices/values/needs that are important to know: Amish Initial Fall Ris (more content not included)... Normal [facility] Physician Referralon 021 Physician Referral [id number] Normal [facility] ANTINUCLEAR ANTIBODYon 01-22 ANTINUCLEAR ANTIBODY Negative Normal NEGATIVE [facility] Comment on above: Performed By: #### A NA ####[facility] [place] [address] CITRULLINE ANTIBODYon 2017 CITRULLINE ANTIBODY <1 Normal [facility] Comment on above: Result Comment: THE TEST FOR ANTIBODIES SPECIFIC FOR CYCLICCITRULLINATED PEPTIDE (CCP) HAS SHOWN TO BEVALUABLE IN THE DIAGNOSIS OF RHEUMATOIDARTHRITIS. THE DIAGNOSTIC VALUE OFANTIBODIES TO CCP IN JUVENILE RHEUMATOIDARTHRITIS PATIENTS HAS NOT BEEN DETERMINED.ANTIBODIES TO CENTROMERE OR SS-A AND MYELOMAIGG MAY BE REACTIVE IN THIS ASSAY. REF VALUES NEGATIVE < 3 U/ML POSITIVE >=3 U/ML Performed By: #### C ITAB ####[facility] [place] [address] HLA-B27 TYPINGon 01-22-2018 HLA-B27 TYPING Negative Normal [facility] Comment on above: Result Comment: This test was developed without FDA review. The test performancecharacteristics were defined and validated by the [facility] HLA LaboratoryDepartment of Pathology, under the accreditation guidelines of [facility]. Performed By: #### H LB27 ####[facility] [place] [address] C-REACTIVE PROTEINon 018 C reactive protein (CRP) 0.34 mg/dL Normal [facility] Comment on above: Result Comment: REF VALUE< 1.00 Performed By: #### C RP ####[place] [id number] [place] [address] RHEUMATOID FACTORon 01-22-20 18 RHEUMATOID FACTOR <10 Normal 0 - 15 [facility] Comment on above: Performed By: #### R F ####[place] [id number] [place] [address] SEDIMENTATION RATE, ERYTHROC YTEon 01-21-2018 SEDIMENTATION RATE, ERYTHROCYTE 11 mm/h Normal 0 - 20 [facility] Comment on above: Performed By: #### E SRWS ####[place] [id number] [place] [address] No Panel Information [facility] Vital Signs Date Time Vital Sign Value Performing Clinician Facility 11-28-2023 11:0400 Body height 165.1 cm Rivka HERNANDEZ Work Phone: [facility] 11-28-2023 11:03-0400 Body mass index (BMI) [Ratio] 24.46 kg/m2 Rivka Koenig DREDGE WORKER-ACCORDION REPAIRER Work Phone: [facility] 11-28-2023 11:03-0400 Body temperature 97.81 [degF] Rivka Koenig DREDGE WORKER-ACCORDION REPAIRER Work Phone: [facility] 11-28-2023 11:03-0400 Body weight 66.68 kg Rivka Koenig DREDGE WORKER-ACCORDION REPAIRER Work Phone: [facility] 11-28-2023 11:03-0400 Diastolic blood pressure 78 mm[Hg] Rivka Koenig DREDGE WORKER-ACCORDION REPAIRER Work Phone: [facility] 11-28-2023 11:03-0400 Heart rate 76 /min Rivka Koenig DREDGE WORKER-ACCORDION REPAIRER Work Phone: [facility] 11-28-2023 11:03-0400 SaO2% (BldA) [Mass fraction] 97 % Rivka Koenig DREDGE WORKER-ACCORDION REPAIRER Work Phone: [facility] 11-28-2023 11:03-0400 Systolic blood pressure 118 mm[Hg] Rivka Koenig DREDGE WORKER-ACCORDION REPAIRER Work Phone: [facility] 11-28-2023 08:55-0400 Body height 165.1 cm Nichol Barrett MD Work Phone: [facility] 11-28-2023 08:55-0400 Body mass index (BMI) [Ratio] 24.11 kg/m2 Nichol Barrett MD Work Phone: [facility] [employer] [facility] 11-28-2023 08:55-0400 Body weight 65.73 kg Nichol Barrett MD Work Phone: [facility] 11-28-2023 08:55-0400 Diastolic blood pressure 74 mm[Hg] Nichol Barrett MD Work Phone: [facility] 11-28-2023 08:55-0400 Heart rate 65 /min Nichol Barrett MD Work Phone: [facility] [employer] [facility] 11-28-2023 08:55-0400 Systolic blood pressure 119 mm[Hg] Nichol Barrett MD Work Phone: [facility] [employer] [facility] 11-11-2023 11:26-0400 Body height 166.37 cm DYLAN Carringtonsler Work Phone: [facility] 11-11-2023 11:26-0400 Body mass index (BMI) [Ratio] 23.7 kg/m2 DREDGE WORKERAbraham Pinto Work Phone: [facility] 11-11-2023 11:26-0400 Body temperature 98.2 [degF] DYLAN Pinto Work Phone: [facility] 11-11-2023 11:26-0400 Body weight 65.77 kg DYLAN Pinto Work Phone: [facility] 11-11-2023 11:26-0400 Heart rate 66 /min DYLAN Pinto Work Phone: [facility] 11-11-2023 11:26-0400 Respiratory rate 16 /min DYLAN Carringtonsler Work Phone: [facility] 11-11-2023 11:26-0400 SaO2% (BldA) [Mass fraction] 97 % DYLAN Carringtonsler Work Phone: [facility] 08-29-2023 08:01-0500 Body mass index (BMI) [Ratio] 25.19 kg/m2 Rivka Koenig DREDGE WORKER-ACCORDION REPAIRER Work Phone: [facility] [employer] [facility] 08-29-2023 08:01-0500 Body temperature 98.01 [degF] Rivka Koenig DREDGE WORKER-ACCORDION REPAIRER [facility] 08-29-2023 08:01-0500 Body weight 68.67 kg Rivka Koenig DREDGE WORKER-ACCORDION REPAIRER Work Phone: [employer] 08-29-2023 08:01-0500 Diastolic blood pressure 54 mm[Hg] Rivka Koenig DREDGE WORKER-ACCORDION REPAIRER Work Phone: [employer] 08-29-2023 08:01-0500 Heart rate 86 /min Rivka Koenig DREDGE WORKER-ACCORDION REPAIRER [email or web address] 08-29-2023 08:01-0500 SaO2% (BldA) [Mass fraction] 98 % Rivka Koenig DREDGE WORKER-ACCORDION REPAIRER [facility] Phone[facility] 08-29-2023 08:01-0500 Systolic blood pressure 102 mm[Hg] Rivka Koenig DREDGE WORKER-ACCORDION REPAIRER [facility] Phone[facility] [employer] 05-03-2023 09:49-0400 Body height 166.4 cm Frank Genin DO Work Phone: [facility] 05-03-2023 09:49-0400 Body weight 77.56 kg Frank Genin DO Work Phone: [facility] 02-28-2023 09:30-0400 Body height 166.37 cm Ed Malhotra Other [employer] Other 02-28-2023 09:30-0400 Body mass index (BMI) [Ratio] 33.1 kg/m2 Ed Malhotra Other [employer] Other 02-28-2023 09:30-0400 Body weight 91.63 kg Ed Malhotra Other [employer] Other 10-11-2022 10:30-0500 Body height 166.37 cm Ed Malhotra Other [employer] Other 10-11-2022 10:30-0500 Body mass index (BMI) [Ratio] 42.6 kg/m2 Ed Felter Other [employer] Other 10-11-2022 10:30-0500 Body weight 117.94 kg Ed Felter Other [employer] Other 09-17-2022 10:15-0500 Body height 166.4 cm Frank Genin DO Work Phone: [facility] 09-17-2022 10:15-0500 Body weight 117.94 kg Frank Genin DO Work Phone: [facility] 09-10-2022 10:45-0500 Body height 166.37 cm Ed Felter Other [employer] Other 09-10-2022 10:45-0500 Body mass index (BMI) [Ratio] 41.78 kg/m2 Ed Felter Other [employer] Other 09-10-2022 10:45-0500 Body weight 115.67 kg Ed Felter Other [employer] Other 08-20-2022 09:56-0500 Body height 166.4 cm Frank Genin DO Work Phone: [facility] 08-20-2022 09:56-0500 Body weight 117.94 kg Frank Genin DO Work Phone: [facility] 08-06-2022 11:15-0500 Body height 166.37 cm Ed Felter Other [employer] Other 04-17-2022 11:00-0400 Diastolic blood pressure 83 mm[Hg] DYLAN Pinto Work Phone: [facility] 04-17-2022 11:00-0400 Heart rate 72 /min DYLAN Pinto Work Phone: [facility] 04-17-2022 11:00-0400 Respiratory rate 20 /min DREDGE WORKERAbraham Carringtonsler Work Phone: [facility] 04-17-2022 11:00-0400 SaO2% (BldA) [Mass fraction] 100 % DREDGE WORKERAbraham Pinto Work Phone: [facility] 04-17-2022 11:00-0400 Systolic blood pressure 153 mm[Hg] DREDGE WORKERAbraham Carringtonsler Work Phone: [facility] 04-17-2022 10:22-0400 Inhaled oxygen flow rate 3 L/min DREDGE WORKERAbraham Carringtonsler Work Phone: [facility] 04-17-2022 09:14-0400 Body height 166.37 cm DREDGE WORKERAbraham Pinto Work Phone: [facility] 04-17-2022 09:14-0400 Body weight 117.93 kg DREDGE WORKERAbraham Pinto Work Phone: [facility] 03-19-2022 10:00-0400 Body height 166.37 cm Abundio Galdamez Other [facility] [employer] Other 03-19-2022 10:00-0400 Body mass index (BMI) [Ratio] 41.62 kg/m2 Abundio Galdamez Other [employer] Other 03-19-2022 10:00-0400 Body weight 115.21 kg Abundio Galdamez Other [facility] [employer] Other 03-13-2022 09:06-0400 Diastolic blood pressure 81 mm[Hg] DREDGE WORKERAbraham Lilly Mlilie Work Phone: [facility] 03-13-2022 09:06-0400 Heart rate 62 /min DREDGE WORKERAbraham Lilly Millie Work Phone: [facility] 03-13-2022 09:06-0400 Respiratory rate 20 /min DREDGE WORKERAbraham Pinto Work Phone: [facility] 03-13-2022 09:06-0400 SaO2% (BldA) [Mass fraction] 100 % DREDGE WORKERAbraham Pinto Work Phone: [facility] 03-13-2022 09:06-0400 Systolic blood pressure 142 mm[Hg] DYLAN Pinto Work Phone: [facility] 03-13-2022 08:29-0400 Inhaled oxygen flow rate 3 L/min DREDGE WORKERAbraham Pinto Work Phone: [facility] 03-13-2022 07:36-0400 Body height 166.37 cm DYLAN Pinto Work Phone: [facility] 03-13-2022 07:36-0400 Body mass index (BMI) [Ratio] 42.9 kg/m2 DYLAN Pinto Work Phone: [facility] 03-13-2022 07:36-0400 Body weight 118.84 kg DYLAN Pinto Work Phone: [facility] 10-25-2021 11:45-0500 Body height 166.37 cm Ed Malhotra Other [employer] Other 10-25-2021 11:45-0500 Body mass index (BMI) [Ratio] 41.67 kg/m2 Ed Malhotra Other [facility] [employer] Other 10-25-2021 11:45-0500 Body weight 115.35 kg Ed Malhotra Other [facility] [employer] Other 04-27-2021 08:16-0400 Body height 165.1 cm No [facility] Work Phone: 04-27-2021 08:16-0400 Body mass index (BMI) [Ratio] 40.98 kg/m2 No PCP None [facility] Work Phone: 04-27-2021 08:16-0400 Body surface area Derived from formula 2.16 m2 No PCP None [facility] Work Phone: 04-27-2021 08:16-0400 Body weight 111.7 kg No PCP None [facility] Work Phone: 04-20-2021 15:48-0400 Body height 166.37 cm No PCP None [facility] Work Phone: 04-20-2021 15:48-0400 Body mass index (BMI) [Ratio] 41.46 kg/m2 No PCP None [facility] Work Phone: 04-20-2021 15:48-0400 Body surface area Derived from formula 2.2 m2 No PCP None [facility] Work Phone: 04-20-2021 15:48-0400 Body weight 114.76 kg No PCP None [facility] Work Phone: Encounters Encounter Date Encounter Type Care Provider Facility Start: 01-16-2024 End: 01-16-2024 ambulatory MALI Kim KODY Not Available Start: 11-28-2023 End: 11-28-[address] [facility] [place] [place] [facility] Start: 11-28-2023 End: 11-28-2023 ambulatory NICHOL BARRETT [facility] Start: 11-28-2023 End: 11-28-2023 Office outpatient visit 15 minutes Nichol Barrett MD [facility] Comment on above: Migraine with aura a nd without status migrainosus, not intractable (Primary Dx); Malnutrition following gastrointestinal surgery; History of gastric bypass; Postsurgical malabsorption; Abdominal pannus; Localized adiposity Acne, unspecified ac ne type (Primary Dx); Chronic low back pain with sciatica, sciatica laterality unspecified, unspecified back pain laterality; S/P bariatric surgery; History of gastric bypass; Encounter to establish care Start: 11-25-2023 End: 11-26-2023 ambulatory AMY Benítez ALEXANDRE [facility] Start: 11-14-2023 End: 11-14-2023 ambulatory Vijaya Pinto Facility:[facility] Start: 11-14-2023 End: 11-14-2023 ambulatory DYLAN Pinto Work Phone: [facility] Work Phone: Start: 11-14-2023 End: 11-14-2023 Patient encounter procedure DYLAN Pinto Work Phone: [facility] Work Phone: Start: 11-11-2023 End: 11-11-2023 Patient encounter procedure DYLAN Pinto Work Phone: [facility] [place] Work Phone: Start: 08-29-2023 End: 08-30-2023 ambulatory [facility] Start: 08-29-2023 End: 08-29-[address] [facility] [place] [place] [facility] Start: 08-29-2023 End: 08-29-2023 Office outpatient visit 10 minutes [facility] DREDGE WORKER-ACCORDION REPAIRER Work Phone: [facility] Comment on above: 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, sciatica laterality unspecified, unspecified back pain laterality (Primary Dx); Personal history of fibromyalgia; Polina's disease; Postsurgical malabsorption; Drug-induced constipation; History of gastric bypass Start: 07-05-2023 Telephone encounter Frank rodriguez DO Work Phone: Orthopaedics Start: 06-06-2023 End: 06-06-2023 ambulatory FRANK NEGRON Facility:[facility] Start: 05-16-2023 End: 05-16-2023 ambulatory Ed Malhotra Other [employer] Other Start: 05-16-2023 Office outpatient vi sit 15 minutes Ed Malhotra [facility] [place] Start: 05-03-2023 End: 05-03-2023 ambulatory FRANK A GENIN Facility:[facility] Start: 05-03-2023 End: 05-03-2023 Patient encounter procedure Frank A Genin DO Work Phone: Orthopaedics Comment on above: Lateral epicondyliti s of right elbow (Primary Dx) Start: 03-21-2023 End: 03-21-2023 ambulatory FRANK PATTONIN Facility:[facility] Start: 03-13-2023 End: 03-13-2023 ambulatory Ed Malhotra Other [employer] Other Start: 03-13-2023 Telephone encounter [facility] Start: 03-07-2023 End: 03-07-2023 ambulatory Marlita Divencenzo OTR/L Work Phone: [facility] Comment on above: Right elbow pain (Pr imary Dx); Lateral epicondylitis of right elbow Start: 03-01-2023 End: 03-01-2023 ambulatory Marlita Divencenzo OTR/L Work Phone: [facility] Comment on above: Right elbow pain (Pr imary Dx); Lateral epicondylitis of right elbow Medical equipment sc ripts question Start: 02-28-2023 End: 02-28-2023 ambulatory Frank Kim Genin DO Work Phone: [employer] Other Start: 02-28-2023 Office outpatient vi sit 25 minutes Ed Malhotra [facility] [place] Start: 02-28-2023 Patient encounter procedure Frank Kim Genin DO Work Phone: Orthopaedics Comment on above: Next week off, possi ble [employer] appointment? Start: 02-28-2023 Telephone encounter [facility] Start: 02-22-2023 End: 02-22-2023 ambulatory MARLITA DIVENCENZO Facility:[facility] Start: 02-22-2023 End: 02-22-2023 ambulatory Estephania Whitt OTR/L Work Phone: [facility] Comment on above: Right elbow pain (Pr imary Dx); Lateral epicondylitis of right elbow Start: 02-14-2023 End: 02-14-2023 ambulatory FRANK NEGRON Facility:[facility] Start: 02-14-2023 End: 02-14-2023 Office outpatient visit 25 minutes Frank Julio danay DO Work Phone: Orthopaedics Comment on above: Right elbow pain (Pr imary Dx); Lateral epicondylitis of right elbow Start: 01-24-2023 Telephone encounter Frank rodriguez DO Work Phone: [facility] [place] Comment on above: Orders Start: 01-10-2023 End: 01-10-2023 ambulatory Ed Malhotra Other [employer] Other Start: 01-10-2023 Telephone encounter Ed [facility] Start: 12-20-2022 End: 12-20-2022 ambulatory FRANK NEGRON Facility:[facility] Start: 12-20-2022 End: 12-20-2022 Patient encounter procedure Frank Negron DO Work Phone: Orthopaedics Comment on above: Right elbow pain (Pr imary Dx); Lateral epicondylitis of both elbows Start: 12-06-2022 ambulatory [facility] Provider Cami pacheco Comment on above: PRP injection - Basilia t elbow - with Dr. Negron Start: 12-06-2022 E-mail encounter fro m caregiver [facility] Provider LIBIA ALSTON [facility] Start: 12-04-2022 End: 12-04-2022 ambulatory FRANK NEGRON Facility:[facility] Start: 12-04-2022 End: 12-04-2022 Office outpatient visit 25 minutes Frank Negron DO Work Phone: [facility] [place] Comment on above: Lateral epicondyliti s of both elbows (Primary Dx); Left elbow pain Start: 11-16-2022 End: 11-16-2022 ambulatory FRANK NEGRON Facility:[facility] Start: 10-18-2022 ambulatory ED MALHOTRA Facility: Start: 10-12-2022 End: 10-12-2022 ambulatory Ed Malhotra Other [facility] Other Start: 10-12-2022 Telephone encounter [facility] Start: 10-11-2022 End: 10-11-2022 ambulatory Ed Danienils Other [facility] Other Start: 10-11-2022 Office outpatient vi sit 25 minutes Ed Malhotra [facility] [place] Start: 09-17-2022 Telephone encounter Xander [facility] Comment on above: Appointment Start: 09-17-2022 End: 09-17-2022 ambulatory FRANK NEGRON Facility:[facility] Start: 09-17-2022 End: 09-17-2022 Patient encounter procedure Frank Negron DO Work Phone: Orthopaedics Comment on above: Lateral epicondyliti s of both elbows (Primary Dx); Left elbow pain; Right elbow pain; Fibromyalgia Start: 09-11-2022 End: 09-11-2022 ambulatory Austin Christine RT(R) Radiology Comment on above: Radiology MRI Start: 09-11-2022 Patient encounter procedure Austin Christine RT(R) [facility]ER[facility] BROWNING Start: 09-10-2022 End: 09-10-2022 ambulatory Ed Danienils Other [facility] Start: 09-10-2022 Office outpatient vi sit 15 minutes Ed Malhotra [facility] [place] Start: 08-20-2022 End: 08-21-2022 ambulatory FRANK Julio JAMIL Facility:[facility] Start: 08-20-2022 End: 08-20-2022 Patient encounter procedure Frank Julio Jamil DO Work Phone: Orthopaedics Comment on above: Left elbow pain (Rylee kristina Dx); Lateral epicondylitis of both elbows; Right elbow pain; Fibromyalgia; Anxiety; Sleep apnea, unspecified type; Cervicalgia Start: 08-06-2022 End: 08-06-2022 ambulatory Ed Malhotra Other [facility] Other Start: 08-06-2022 Office outpatient vi sit 25 minutes Ed Malhotra [facility] [place] Start: 07-20-2022 End: 07-20-2022 Patient encounter procedure Libia Gomez DO Work Phone: Orthopaedics Comment on above: Lateral epicondyliti s of both elbows (Primary Dx) Start: 06-25-2022 End: 06-25-2022 ambulatory Ed Malhotra Other [facility] Other Start: 06-25-2022 Telephone encounter [facility] Start: 05-14-2022 (Procedure) Short Ed Malhotra [facility] Start: 05-14-2022 End: 05-14-2022 ambulatory Ed Malhotra Other [facility] Other Start: 05-04-2022 End: 05-05-[address] UPTON [facility] Facility: Start: 04-30-2022 End: 04-30-2022 ambulatory Delia Allen Other [facility] Other Start: 04-30-2022 Telephone encounter Delia Allen [facility] Start: 04-24-2022 End: 04-24-2022 ambulatory Ed Malhotra Other [facility] Other Start: 04-24-2022 Office outpatient vi sit 25 minutes Ed Malhotra [facility] [place] Start: 04-17-2022 End: 04-17-2022 Admission to same day surgery center DYLAN Pinto Work Phone: [facility] Start: 03-27-2022 End: 03-27-2022 ambulatory Ed Malhotra Other [facility] Other Start: 03-27-2022 Office outpatient vi sit 25 minutes Ed Malhotra [facility] [place] Start: 03-21-2022 End: 03-21-2022 ambulatory Delia Allen Other [facility] Other Start: 03-21-2022 Telephone encounter Delia Allen [facility] Start: 03-19-2022 End: 03-19-2022 ambulatory Abundio Denice Other [facility] Other Start: 03-19-2022 Office outpatient vi sit 15 minutes Abundio Galdamez [facility] Start: 03-13-2022 (Procedure) Marvin Malhotra [facility] Start: 03-13-2022 End: 03-13-2022 ambulatory Ed Malhotra Other [facility] Other Start: 03-13-2022 End: 03-13-2022 Admission to same day surgery center DYLAN Pinto Work Phone: [facility] Start: 01-15-2022 End: 01-15-2022 ambulatory Ed Malhotra Other [facility] Other Start: 01-15-2022 Telephone encounter Ed Malhotra [facility] Start: 12-28-2021 End: 12-28-2021 ambulatory Ed Malhotra Other [facility] Other Start: 12-28-2021 Office outpatient vi sit 25 minutes Ed Malhotra [facility] [place] Start: 11-16-2021 End: 11-16-2021 ambulatory Ed Malhotra Other [facility] Other Start: 11-16-2021 Office outpatient vi sit 25 minutes Ed Malhotra [facility] [place] Start: 11-07-2021 (Procedure) Short Ed Malhotra [facility] Start: 11-07-2021 End: 11-07-2021 ambulatory Ed Malhotra Other [facility] Other Start: 10-25-2021 Patient encounter procedure No PCP None [facility] Work Phone: Start: 10-25-2021 End: 10-25-2021 ambulatory Ed Danienils Other [facility] Other Start: 10-25-2021 Office outpatient vi sit 25 minutes Ed Malhotra [facility] [place] Start: 10-17-2021 (Procedure) Short Ed Heltonnils [facility] Start: 10-17-2021 End: 10-17-2021 ambulatory Ed Malhotra Other [facility] Other Start: 09-26-2021 End: 09-26-2021 ambulatory Ed Malhotra Other [facility] Other Start: 09-26-2021 Telephone encounter Ed KELLY [facility] Start: 09-14-2021 End: 09-14-2021 ambulatory Ed Malhotra Other [facility] Other Start: 09-14-2021 Office consultation new/estab patient 60 min Ed Malhotra [facility] [place] Start: 08-16-2021 AUDIT No PCP None [facility] DO Work Phone: Start: 06-06-2021 Patient encounter procedure No PCP None [facility] Work Phone: Start: 04-28-2021 Patient encounter procedure No PCP None [facility] Work Phone: Start: 04-28-2021 YULIANA, Provider : Allyn Mcdaniels, Status: Pen, Time: 9:30 AM No PCP None [facility] Work Phone: Start: 04-27-2021 Office outpatient ne w 45 minutes No PCP None DD[facility] MAC2 303 Work Phone: Start: 04-21-2021 Chart Update No PCP None [facility] Work Phone: Start: 04-20-2021 AUDIT No PCP None [facility] Work Phone: Procedures Date Procedure Procedure Detail Performing Clinician Start: 11-14-2023 Plain X-ray of right hip DYLAN Pinto Work Phone: Start: 11-14-2023 X-ray of lumbar spin e, four views DYLAN Pinto Work Phone: Start: 11-11-2023 Quick Strep (POC) DYLAN Pinto Work Phone: Start: 08-29-2023 Follow-up visit Follow-up HELENESTEVEN RA KOENIG Start: 05-03-2023 End: 05-03-2023 Us guidance needle placement img s&i Frank Negron DO Work Phone: Start: 03-04-2023 Adult depression scr eening assessment Rivka Koenig DREDGE WORKER-ACCORDION REPAIRER Work Phone: Start: 02-14-2023 Us compl joint r-t w /image documentation Frank Negron DO Work Phone: Start: 12-20-2022 Njx pltlt plasma w/i mg harvest/preparation Frank Negron DO Work Phone: Start: 12-20-2022 Us compl joint r-t w /image documentation Frank Negron DO Work Phone: Start: 04-17-2022 Local anesthetic lum bar facet joint nerve block DYLAN Pinto Work Phone: Start: 03-13-2022 Epidural injection o f lumbar spine using fluoroscopic guidance DYLAN Pinto Work Phone: Start: 07-11-2021 Psychiatric diagnost ic evaluation No PCP None Tonsillectomy No PCP None Plan of Treatment Date Care Activity Detail Author Start: 11-27-2024 Adult BMI Screening Adult BMI Screen ing [facility] Start: 11-27-2024 Tobacco Screening Tobacco Screening [facility] Start: 11-26-2024 End: 11-26-2024 Calcium [Mass/volume] in Serum or Plasma Calcium Lab Routine Malnutrition following gastrointestinal surgery History of gastric bypass Postsurgical malabsorption Expected: 11/26/2024 (Approximate), Expires: 11/26/2024 [facility] Work Phone: Comment on above: Expected: 11/26/2024 (Approximate), Expires: 11/26/2024 Start: 11-26-2024 End: 11-26-2024 CBC W Auto Differential panel - Blood CBC auto differential Lab Routine Malnutrition following gastrointestinal surgery History of gastric bypass Postsurgical malabsorption Expected: 11/26/2024 (Approximate), Expires: 11/26/2024 [facility] Comment on above: Expected: 11/26/2024 (Approximate), Expires: 11/26/2024 Start: 11-26-2024 End: 11-26-2024 Copper, serum Copper, serum Lab Routine Malnutrition following gastrointestinal surgery History of gastric bypass Postsurgical malabsorption Expected: 11/26/2024 (Approximate), Expires: [facility]26[facility] Comment on above: Expected: 11/26/2024 (Approximate), Expires: 11/26/2024 Start: 11-26-2024 End: 11-26-2024 Cyanocobalamin vitamin b-12 Vitamin B12 Lab Routine Malnutrition following gastrointestinal surgery History of gastric bypass Postsurgical malabsorption Expected: 11/26/2024 (Approximate), Expires: 11/26/2024 [facility] Comment on above: Expected: 11/26/2024 (Approximate), Expires: 11/26/2024 Start: 11-26-2024 End: 11-26-2024 Folate Folate Lab Routine Malnutrition following gastrointestinal surgery History of gastric bypass Postsurgical malabsorption Expected: 11/26/2024 (Approximate), Expires: 11/26/2024 [facility] Comment on above: Expected: 11/26/2024 (Approximate), Expires: 11/26/2024 Start: 11-26-2024 End: 11-26-2024 Iron [Mass/volume] in Serum or Plasma Iron Lab Routine Malnutrition following gastrointestinal surgery History of gastric bypass Postsurgical malabsorption Expected: 11/26/2024 (Approximate), Expires: 11/26/2024 [facility] Comment on above: Expected: 11/26/2024 (Approximate), Expires: 11/26/2024 Start: 11-26-2024 End: 11-26-2024 Liver panel Liver panel Lab Routine Malnutrition following gastrointestinal surgery History of gastric bypass Postsurgical malabsorption Expected: 11/26/2024 (Approximate), Expires: 11/26/2024 [facility] Comment on above: Expected: 11/26/2024 (Approximate), Expires: 11/26/2024 Start: 11-26-2024 End: 11-26-2024 Parathyroid Hormone, intact Parathyroid Hormone, intact Lab Routine Malnutrition following gastrointestinal surgery History of gastric bypass Postsurgical malabsorption Expected: 11/26/2024 (Approximate), Expires: 11/26/2024 [facility] Comment on above: Expected: 11/26/2024 (Approximate), Expires: 11/26/2024 Start: 11-26-2024 End: 11-26-2024 Thiamin Vitamin B1, whole blood Thiamin Vitamin B1, whole blood Lab Routine Malnutrition following gastrointestinal surgery History of gastric bypass Postsurgical malabsorption Expected: 11/26/2024 (Approximate), Expires: 11/26/2024 [facility] Comment on above: Expected: 11/26/2024 (Approximate), Expires: 11/26/2024 Start: 11-26-2024 End: 11-26-2024 Vitamin A (Retinol) Vitamin A (Retinol) Lab Routine Malnutrition following gastrointestinal surgery History of gastric bypass Postsurgical malabsorption Expected: 11/26/2024 (Approximate), Expires: 11/26/2024 [facility] Comment on above: Expected: 11/26/2024 (Approximate), Expires: 11/26/2024 Start: 11-26-2024 End: 11-26-2024 Vitamin D 25 hydroxy Vitamin D 25 hydroxy Lab Routine Malnutrition following gastrointestinal surgery History of gastric bypass Postsurgical malabsorption Expected: 11/26/2024 (Approximate), Expires: 11/26/2024 [facility] Comment on above: Expected: 11/26/2024 (Approximate), Expires: 11/26/2024 Start: 11-26-2024 End: 11-26-2024 Zinc Zinc Lab Routine Malnutrition following gastrointestinal surgery History of gastric bypass Postsurgical malabsorption Expected: 11/26/2024 (Approximate), Expires: 11/26/2024 [facility] Comment on above: Expected: 11/26/2024 (Approximate), Expires: 11/26/2024 Start: 11-26-2024 End: 11-26-2024 Patient encounter procedure 11/26/2024 8:30 AM EDT Office Visit [facility]-B[facility] [address] [place] [phone] Nichol Barrett MD [address] [address] Amy Flores, PA-C [address] [facility] [address] [place] [address] [facility] General [facility] Start: 08-29-2024 Adult BMI Screening Adult BMI Screen ing [facility] Start: 08-29-2024 Tobacco Screening Tobacco Screening [facility] Start: 05-28-2024 End: 05-28-2024 Patient encounter procedure 05/28/2024 8:00 AM EDT Office Visit [facility] [address] [place] [phone] Rivka Koenig APRN-ACCORDION REPAIRER [address] [place] [address], [place] [address] [facility] Start: 03-04-2024 Depression Screening Depression Scre ening [facility] Start: 11-28-2023 End: 11-28-2023 Patient encounter procedure 11/28/2023 11:00 AM EDT Office Visit [facility] [address] [place] [phone] Arya Rivka, DREDGE WORKER-ACCORDION REPAIRER [address] [place] [address] [facility] Start: 05-03-2023 Influenza vaccination [facility] Start: 04-05-2023 Adult BMI Follow Up Plan Adult BMI F ollow Up Plan [facility] Start: 09-02-2022 DEPRESSION ASSESSMENT DEPRESSION ASS ESSMENT [facility] Start: 08-20-2022 End: 10-20-2022 25-hydroxyvitamin D3 [Mass/volume] in Serum or Plasma [facility] Work Phone: Comment on above: Expected: 08/20/2022 , Expires: 10/20/2022 Start: 08-20-2022 End: 10-20-2022 FELICIANO BY IFA WITH REFLEX [facility] Work Phone: Comment on above: Expected: 08/20/2022 , Expires: 10/20/2022 Start: 08-20-2022 End: 10-20-2022 Cyclic citrullinated peptide IgG Ab [Units/volume] in Serum or Plasma [facility] Work Phone: Comment on above: Expected: 08/20/2022 , Expires: 10/20/2022 Start: 08-20-2022 End: 10-20-2022 DNA double strand Ab [Units/volume] in Serum by Immunoassay [facility] Work Phone: Comment on above: Expected: 08/20/2022 , Expires: 10/20/2022 Start: 08-20-2022 End: 10-20-2022 Erythrocyte sedimentation rate [facility] Work Phone: Comment on above: Expected: 08/20/2022 , Expires: 10/20/2022 Start: 08-20-2022 End: 10-20-2022 Rheumatoid factor [Units/volume] in Serum or Plasma [facility] Work Phone: Comment on above: Expected: 08/20/2022 , Expires: 10/20/2022 Start: 05-03-2022 Influenza vaccination INFLUENZA (#1) [facility] Start: 04-17-2022 [facility] Work Phone: Start: 03-12-2022 [facility] Work Phone: Start: 12-14-2021 EGDACONSUELO, Provider: Ashu Benson, Status: Pen, Time: 7:30 AM EGDANS, Provider: Ashu Benson, Status: Pen, Time: 7:30 AM [facility] Work Phone: Start: 09-02-2021 DEPRESSION ASSESSMENT DEPRESSION ASS ESSMENT [facility] Start: 08-23-2021 VIRFUJUSTIN, Provider : Allyn Mcdaniels, Status: Pen, Time: 1:00 PM VIRFUVNEISHA, Provider: Allyn Mcdaniels, Status: Pen, Time: 1:00 PM MS-[facility] Work Phone: Start: 07-07-2021 VIRFUJUSTIN, Provider : Allyn Mcdaniels, Status: Pen, Time: 1:00 PM VIRFUVNEISHA, Provider: Allyn Mcdaniels, Status: Pen, Time: 1:00 PM [facility] Work Phone: Start: 2017 HPV TESTING HPV TESTING [facility] Start: 02-07-2008 PAP TESTING PAP TESTING [facility] Start: 02-07-2008 Screening for malign ant neoplasm of cervix Pap Smear [facility] Start: 2006 DTaP,Tdap and Td Vaccines (1 - Tdap) DTaP,Tdap and Td Vaccines (1 - Tdap) [facility] Start: 2006 Urine microalbumin profile [facility] Start: 2005 HEPATITIS C SCREENING HEPATITIS C SC REENING [facility] Start: 2005 HIV SCREENING HIV SCREENING [facility] Start: 1987 COVID-19 VACCINE (#1) COVID-19 VACCI NE (#1) [facility] Start: 1987 HEPATITIS B (1 of 3 - 3-dose series) HEPATITIS B (1 of 3 - 3-dose series) [facility] Start: 1987 Hepatitis B Vaccine (1 of 3 - 3-dose series) Hepatitis B Vaccine (1 of 3 - 3-dose series) [facility] End: 09-19-2023 Mri any jt upper extremity w/o contrast matrl [facility] Work Phone: Comment on above: 1 Occurrences starti ng 08/20/2022 until 09/19/2023 Patient Education [facility] Work Phone: Patient referral [facility] Work Phone: End: 09-19-2023 Radex spine cervical 4 or 5 views XR CERV OTHER 4V AP/LAT/OBL Radiology Routine Lateral epicondylitis of both elbows Left elbow pain Right elbow pain Fibromyalgia Anxiety Sleep apnea, unspecified type Cervicalgia 1 Occurrences starting 08/20/2022 until 09/19/2023 [facility] Work Phone: Comment on above: 1 Occurrences starti ng 08/20/2022 until 09/19/2023 Radex spine cervical 4 or 5 views XR CERV OTHER 4V AP/LAT/OBL Radiology Routine Lateral epicondylitis of both elbows Left elbow pain Right elbow pain Fibromyalgia Anxiety Sleep apnea, unspecified type Cervicalgia 08/20/2022 10:54 AM EST [facility] Work Phone: End: 08-29-2024 TSH with Reflex TSH with Reflex Lab Routine Polina's disease 1 Occurrences starting 08/29/2023 until 08/29/2024 [employer] Work Phone: Comment on above: 1 Occurrences starti ng 08/29/2023 until 08/29/2024 TSH with Reflex TSH with Reflex Lab Routine Polina's disease 08/29/2023 8:51 AM EST [employer] End: 10-17-2023 Us lmtd joint/oth nonvasc xtr strux r-t w/img US ELBOW LEFT Radiology Routine Lateral epicondylitis of both elbows 1 Occurrences starting 09/17/2022 until 10/17/2023 [facility] Work Phone: Comment on above: 1 Occurrences starti ng 09/17/2022 until 10/17/2023 [facility] Payers Date Payer Category Payer Self-pay [id number] 2022 Medicaid [id number] 2022 Private Health Insurance [facility] [id number] 2022-Present [phone] [address] [place] [address] [id number] 2021 Medicaid [id number] 2021 Unknown 1987 Unknown [id number]. [id number] 1987 Unknown [id number]. [id number] 1987 Unknown [id number]. [id number] 1987 Unknown [id number] [id number] 1987 Unknown [id number]. [id number] 1987 Unknown [id number]. [id number] 1987 Unknown [id number]. [id number] 1987 Unknown [id number] [id number]. 2.1259 1959 Unknown [id number] 1959 Unknown [id number] Unknown [facility] [id number] Unknown [id number] Social History Date Type Detail Facility Start: 10-13-2020 End: 12-04-2022 Current every day smoker Current every day smoker [facility] Work Phone: Start: 10-13-2020 End: 12-04-2022 Sex Assigned At [facility] Start: 11-07-2021 Tobacco smoking status COIS Never smoked tobacco (finding) [facility] Start: 1987 Sex Assigned At Female [facility] Start: 1987 Sex Assigned At Not on file [facility] Start: 07-10-2022 End: 07-20-2022 Exposure to SARS-CoV-2 (event) Not sure [facility] Start: 11-21-2022 End: 12-04-2022 Tobacco smoking status NHIS Ex-smoker [facility] End: 10-31-2020 History of tobacco use Current smoker [facility] End: 10-31-2020 History of tobacco use Cigarette Smoker [facility] Start: 11-21-2022 End: 12-04-2022 Tobacco use and exposure Smokeless tobacco non-user [facility] National Score (1-10 0), lower number is lower risk 86 [facility] Start: 02-22-2023 Gender identity Identifies as female gender (finding) [facility] Start: 02-22-2023 Sexual orientation Heterosexual (finding) [facility] Start: 08-29-2023 End: 11-29-2023 Alcohol intake Current non-drinker of alcohol (finding) [facility] [employer] Start: 09-25-2022 Tobacco Comment 2-3 cigarettes a day [facility] [employer] [facility] Goals Date Patient Goal Desired Activity /State Clinical Notes 01-31-2015 to 11-28-2023 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 female. HPI Michelle presents to the office for follow up on chronic back pain with sciatica, fibromyalgia, and post op gastric bypass and to establish care. Michelle reports she is doing well and has no concerns today. She reports she is recovering well from gastric bypass surgery and is continuing to lose weight. Weight loss since surgery: 113 lbs, but reports she has lost a total on 160 lbs. Reports her highest weight was 315. She is following with pain management for her back pain. Hx: Depression- since high school, but took herself off on medication and feels that she is doing well now without medication. Chronic low back pain with sciatica/ fibromyalgia- following with pain managmeent, Dr. Malhotra. Reports she will have an Ablation in December for the pain. Pain management recommended that she hold lyrica until after the ablation. 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 Constipation- colace, increase fluid intake, MOM, castor oil. She will increase fiber and fluid intake. Migraines- has followed with neurology in the past, but she has been following with PCP. Was on different medication. But has not had a migraine very often. Has only had 2 this year. Denies need to have this addressed at this time. She reports she always gets a small headache, but she has not had a migraine. Headache typically affects the front of head and base of neck. SAMIR- has been using CPAP, she follows with sleep medicine. Uncontrolled movements at night periodic leg movement. amitriptyline to help with sleep and muscle relaxer. Follows with [facility] neurological. Michelle is post op robotic Janelle-en-Y gastric bypass bariatric sx 11/28/[address] Nichol Barrett. She reports she has been referred to a plastic surgeon for skin removal. It is very itchy and irritating. Follows with dermatology d/t family hx of melanoma. Past Surgical History: Procedure Laterality Date DAVINCI BYPASS GASTRIC JANELLE EN Y N/A 11/28/2022 Performed by Nichol Barrett MD at [facility] NERVES Dr. Malhotra TONSILLECTOMY age 15 Family History Problem Relation Age of Onset Arthritis Mother Hypertension Mother Cancer Mother carcoma Arthritis Father Diabetes Father Hypertension Father Hyperlipidemia Father Cancer Father melanoma and additional skin cancer Drug abuse Sister Diabetes Sister Arthritis Brother Hypertension Brother Hyperlipidemia Brother Diabetes Maternal Grandmother Heart disease Maternal Grandmother Hypertension Maternal Grandmother Hyperlipidemia Maternal Grandmother Dementia Maternal Grandmother Heart failure Maternal Grandmother Lung disease Maternal Grandmother Heart disease Maternal Grandfather Diabetes Paternal Grandmother Hyperlipidemia Paternal Grandmother Alzheimer's disease Paternal Grandmother Stroke Paternal Grandmother Aneurysm Paternal Grandmother brain aneusym Heart disease Paternal Grandfather Anesthesia problems Neg Hx The following portions of the patient's history were reviewed and updated as appropriate: allergies, current medications, past family history, past medical history, past social history, past surgical history, problem list, and medication reconciliation was completed including current medication and post discharge medication. Review of Systems Constitutional: Negative for chills, diaphoresis, fatigue, fever and unexpected weight change. HENT: Negative. Eyes: Negative. Respiratory: Negative for cough, chest tightness, shortness of breath and wheezing. Cardiovascular: Negative for chest pain, palpitations and leg swelling. Gastrointestinal: Negative for abdominal pain, diarrhea, nausea and vomiting. Endocrine: Negative for polydipsia, polyphagia and polyuria. Genitourinary: Negative for difficulty urinating, frequency, hematuria and urgency. Musculoskeletal: Negative for arthralgias, gait problem, joint swelling and neck pain. Skin: Feels that her acne is bad. Back and face. Neurological: Negative for dizziness, syncope, weakness, light-headedness, numbness and headaches. Psychiatric/Behavioral: Negative for self-injury and suicidal ideas. Objective Physical Exam Vitals and nursing note reviewed. HENT: Head: Normocephalic and atraumatic. Eyes: Pupils: Pupils are equal, round, and reactive to light. Pulmonary: Effort: Pulmonary effort is normal. Skin: Capillary Refill: Capillary refill takes less than 2 seconds. Findings: No erythema or rash. Neurological: General: No focal deficit present. Psychiatric: Mood and Affect: Mood normal. Behavior: Behavior normal. Assessment/Plan We established care today. She will increase fluid intake and increase fiber diet. I will send in cream for her acne. Follow up after pain management. Michelle was seen today for follow-up. Diagnoses and all orders for this visit: Acne, unspecified acne type Chronic low back pain with sciatica, sciatica laterality unspecified, unspecified back pain laterality S/P bariatric surgery History of gastric bypass Encounter to establish care Other orders - clindamycin-benzoyl peroxide (BENZACLIN) gel; Apply 1 Application topically daily as needed (acne). DAVID Lerner 11/29/23 1645 [facility] History of Presen t illness Narrative [facility] GENER[facility] SURGERY-BARIATRIC [address] [place] [id number] SURGICAL WEIGHT LOSS PROGRAM PROGRESS NOTE [id number] Patient: Michelle Rivera Service Date: 11/28/2023 BP 119/74 Pulse 65 Ht 165.1 cm (5' 5 ) Wt 65.7 kg (144 lb 14.4 oz) BMI 24.11 kg/m Subjective: Patient is 1 year post op RYGB. Doing well. Complaints : having some issues with skin itching and skin issues related to her abdominal pannus. Also having issues with constipation Weight loss since surgery: 113 lbs Physical Activity: Elliptical and walking regularly. Also doing resistance Fluid intake [] Less than 48 oz [x] 48-64 oz [] 64 + oz Review of Systems: Review of Systems - General ROS: negative Respiratory ROS: no cough, shortness of breath, or wheezing Cardiovascular ROS: no chest pain or dyspnea on exertion Gastrointestinal ROS: no abdominal pain, change in bowel habits, or black or bloody stools Physical Assessment: BP 119/74 Pulse 65 Ht 165.1 cm (5' 5 ) Wt 65.7 kg (144 lb 14.4 oz) BMI 24.11 kg/m General Awake and Alert Cardio-Pulmonary [] Heart RRR [] No murmurs [] Pulses nl x4 extrem [x] Good inspiratory effort [x] No wheezing [] Lungs clear to auscultation bilaterally [] Other: Abdomen [x] Abd S/NT/ND/Benign [x] No abdominal mass/hernia [x] No Splenomegaly [] Other: Muskuloskeletal [x] Good muscle strength x4 extremities [x] nl gait and ambul [x] Nl ROM x4 extremities [] Other: Neurologic [x] Alert and oriented x3 [] Other: Skin [x] Intact w/ no open wounds [x] Incisions C/D/I [] Steri strips removed [x] No drainage or Infection [] Other: Assessment & Plan: S/P RYGB Constipation Symptomatic abdominal pannus Plan Discussed increasing water intake Refilled colace Start daily MOM Labs reviewed-zinc replaced Return in 1 year documented in this encounter [facility] 11-28-2023 Miscellaneous Notes Addended by: PERLA BAJWA on: 11/28/2023 10:36 AM Modules accepted: Orders documented in this encounter [facility] 11-28-2023 Note Addended by: PERLA BAJWA on: 11/28/2023 10:36 AM Modules accepted: Orders [facility] 09-05-2023 Note HNO ID: [id number] Author: MARCELINA MCMANUS OTR/L Service: ? Author Type: Occupational Therapist Type: Progress Notes Filed: 09/05/2023 12:57 Note Text: 09/05/2023 REHABILITATION AND SPORTS THERAPY OCCUPATIONAL THERAPY DISCONTINUANCE OF CARE Plan of Care Period: Start of Care Date: 02/22/23 Last Visit Date: 03/21/2023 Therapy Program: The following is a summary of the interventions provided for this episode of care; Therapeutic exercise, Manual therapy, Self-shelter management, and Patient/Family/Caregiver Education Assessment: Based on most recent visit, patient was progressing as expected toward functional goals based on pain levels and documented subjective information on progress. Unable to formally assess goal achievement due to non-compliance with therapy plan of care. Reason for Discontinuation of Care: Patient has not returned to therapy or scheduled additional follow-up appointments. Marcelina Mcmanus, OTR/L #[id number] [facility] 08-29-2023 History of Presen t illness Narrative Subjective Patient ID: Michelle Rivera is a 38 y.o. female. HPI Michelle presents to the office for follow up. Michelle is post op robotic Janelle-en-Y gastric bypass bariatric sx 11/28/[address] Nichol Barrett. At visit with Amy HIGH on 05/30/2023, she had issues with constipation, in which is was recommended she try colace BID. She is on supplements, vitamins, biotin. She will have labs and routine checkup with sx in October for annual visit. She has lost a total of about 110 lbs since surgery. She feels that she is doing well and that the colace has been helpful. However, her concern today is her chronic back pain and fibromyalgia. She reports she was diagnosed with fibromyalgia in her early 20's and deals with generalized body aches, joint aches, fatigue, and back pain with sciatica and spasms. She also reports her hands constantly aches, her skin feels like it is on fire , and even her skin and nails hurt. She reports she had followed with pain management in the past and was on lyrica. But since her weight loss, she felt like it was too much and she had stopped the medication. However, she feels that her pain is getting bad again and wonders if we can restart the lyrica at a lower dose until she is able to follow up with pain management again. She reports that she is currently on a muscle relaxer that is managed by neurology. The following portions of the patient's history were reviewed and updated as appropriate: allergies, current medications, past family history, past medical history, past social history, past surgical history, problem list, and medication reconciliation was completed including current medication and post discharge medication. Review of Systems Constitutional: Positive for fatigue. Negative for chills, diaphoresis, fever and unexpected weight change. HENT: Negative. Respiratory: Negative. Cardiovascular: Negative. Gastrointestinal: Positive for blood in stool, constipation and nausea. Baseline since sx Musculoskeletal: Positive for arthralgias, back pain and myalgias. Skin: Negative. Objective Physical Exam Vitals and nursing note reviewed. HENT: Head: Normocephalic and atraumatic. Eyes: Pupils: Pupils are equal, round, and reactive to light. Pulmonary: Effort: Pulmonary effort is normal. Skin: Capillary Refill: Capillary refill takes less than 2 seconds. Findings: No erythema or rash. Neurological: General: No focal deficit present. Psychiatric: Mood and Affect: Mood normal. Behavior: Behavior normal. Assessment/Plan The OARRS/MAPPS database was reviewed today and found to be appropriate. No indication of medication diversion, or non compliance. I can restart Lyrica at a lower dose until she is able to get in with pain clinic. However, pain management should continue to manage Lyrica. She will keep follow up with specialist. She will have labs completed with GI, I added TSH d/t history of Polina's. Continue with previous medications and supplements. FU 3 months. Michelle was seen today for follow-up. Diagnoses and all orders for this visit: Chronic low back pain with sciatica, sciatica laterality unspecified, unspecified back pain laterality - pregabalin (LYRICA) 50 mg capsule; Take 1 capsule (50 mg total) by mouth in the morning and 1 capsule (50 mg total) before bedtime. Personal history of fibromyalgia - pregabalin (LYRICA) 50 mg capsule; Take 1 capsule (50 mg total) by mouth in the morning and 1 capsule (50 mg total) before bedtime. Polina's disease - TSH with Reflex; Future Postsurgical malabsorption Drug-induced constipation History of gastric bypass DAVID Lerner 08/29/23 0950 documented in this encounter [facility] 07-05-2023 Miscellaneous Notes I have tried to reach patient multiple times. Phone goes to [employer] I sent 2 my chart messages. I had a spot on hold for 07/15 for quite awhile. I had to remove the hold to offer to another patient. Yamile Kaba documented in this encounter [facility] 06-06-2023 Note HNO ID: [id number] Author: Frank Negron, DO Service: ? Author Type: Physician Type: Progress Notes Filed: 06/06/2023 12:10 PM Note Text: MUSCULOSKELETAL DISTANCE HEALTH TELEPHONE VISIT DOCUMENTATION NOTE This visit was performed via telephone audio only, and the patient provided consent to be evaluated and managed using this telephone encounter. CHIEF COMPLAINT (CC): Michelle Rivera is a 38 year old female is presenting for this distance health encounter for the following reason: follow up HISTORY OF PRESENT ILLNESS (HPI): R elbow Tenjet Location of pain: improved PREVIOUS TREATMENTS: Treatments so far have included TENJET. REVIEW OF SYMPTOMS (ROS): Constitutional: Any recent fevers? No Gastrointestinal: Any abdominal discomfort? No Integumentary: Any recent skin changes or rashes? No Neurologic: Any numbness or tingling? No ALLERGIES Allergen Reactions Penicillins Hives Sulfa (Sulfonamide * Hives No past medical history on file. Current Outpatient Medications on File Prior to Visit Medication Sig methylPREDNISolone (MEDROL DOSE-PACK) 4 mg Dose-Pack As Instructed per package pregabalin (LYRICA) 100 mg capsule Take 100 mg by mouth twice daily. citalopram (CELEXA) 40 mg tablet Take 40 mg by mouth once daily. atenolol (TENORMIN) 25 mg tablet Take 25 mg by mouth once daily. vits 4/iron fum/folic (-H ORAL) Take by mouth once daily. omeprazole (PRILOSEC) 40 mg capsule Take 40 mg by mouth once daily. No current facility-administered medications on file prior to visit. IMAGING/LABORATORY IMAGING: No imaging was performed today. ASSESSMENT / PLAN CLINICAL IMPRESSION / ASSESSMENT: (M77.11) Lateral epicondylitis of right elbow (primary encounter diagnosis) (M25.521) Right elbow pain RECOMMENDATION / PLAN: I spent a total of 5 minutes on the date of the service which included preparing to see the patient. SLOWLY increase excersise Doing well. Verbal health education was given to patient. Patient verbalizes understanding and agrees with the treatment plan as detailed above. Detailed instructions were reviewed with the patient and all questions were answered in detail. We discussed reasons for emergent need to refer to seek care in an Emergency Department or an Orthopaedic Acute Care Center. We discussed red flags associated with this condition and emergent treatment if they present. Frank Negron D.O. [facility] [place] Team Physician, [facility] Consulting Physician, [place] Lexi Reddy, Otorhinolaryngologist [phone] Patient verbalizes understanding and agrees with the treatment plan as detailed above. [facility] 05-16-2023 Evaluation note Encounter Date Diagnosis Assessment Notes May, Other spondylosis with radiculopathy, lumbar region (ICD-10 - M47.26) May, Lumbosacral spondylosis without myelopathy (ICD-10 - M47.817) Patient is voicing minimal complaints of pain at this time. She attributes this to a recent bilateral lumbar facet radiofrequency ablation. We will continue to monitor her symptoms in this region. In the meantime she will continue with physical therapy. Anatomy of spine discussed in detail with patient in regard to patients condition. Overall, patient believes their pain is reasonably well controlled, and she agrees with our treatment plan. We will follow up with her in six months, sooner if needed. May, Chronic pain (ICD-10 - G89.29) May, Other Above note written by Anthony Carcamo LPN, Cardiograph Operator. Edited and approved by Dr. Ed Malhotra MD. [facility] 09-01-2023 NoteHNO ID: [id number] Author: Frank Negron, DO Service: ? Author Type: Physician Type: Progress Notes Filed: 05/03/2023 10:17 AM Note Text: Lateral epicondylitis of right elbow (primary encounter diagnosis) Minimally Invasive Tenotomy Informed Consent Consent Obtained: Written [place] Protocol A moment to CARE was completed. SIGN IN Personnel directly involved with the procedure wore the appropriate PPE. Patient/Surrogate Stated/Verified: Patient name, Date of , Relevant allergies and Intended procedure TIME OUT Intended patient and procedure match the source document(s). Consent documented and matches the intended procedure. Relevant labs, photos, and/or imaging studies have been reviewed. Correct side/site marked and visible. Medications required for procedure verified. Fire risk assessed and interventions discussed. 05/03/2023 10:16 AM The procedure site was prepped in the usual sterile fashion. Site: Right common extensor tendon Details:Musculoskeletal ultrasound was utilized to successfully localize placement of the injection needle at the appropriate site. Ultrasound images demonstrating local vasculature and demonstrating injection of solution were saved. Anesthetics: 2 mL lidocaine 1%-EPINEPHrine 1:100,000 1 %-1:100,000; 4 mL ROPivacaine (PF) 5 mg/mL (0.5 %) Minimally Invasive Tenotomy (TenJet) The treatment area was cleaned and draped in sterile fashion. Using sterile technique, musculoskeletal ultrasound (MSK-US) was used to successfully localize the area of pathology to be treated today. A gordo with a sterile marker was placed on the skin in the area of the intended incision site. Using sterile technique, the area of treatment was visualized under MSK-US where infiltration of anesthetic was utilized with a guiding needle. A separate injection was utilized to create a skin wheal at the incision site to control procedural bleeding. After acceptable regional anesthesia was reached, a 11-blade scalpel was utilized to make a stab incision at the marked treatment site. The Hydrocision TenJet needle device, under constant physician guided MSK-US visualization, was inserted to the area of pathological tissue. Maintaining this visualization, degenerative tissue was debrided and confirmed by the treating physician. Upon satisfaction of removal of the targeted degenerative tissue, the TenJet needle device was removed, compression was applied to the incisional site with sterile gauze. Bleeding was controlled and sterile strips were applied, with occlusive dressing and compression bandage. Patient left the procedure room in satisfactory condition having tolerated the procedure well. Outcome: tolerated well, no immediate complications Post-injection instructions were reviewed with the patient and the patient voiced understanding of these instructions. Estimated blood loss less than 5 mL no complications, Estimated blood loss less than 5 mL. SIGN OUT All instruments, equipment, possible retained foreign bodies accounted for. Frank Negron, [facility] Instructions* Patient Instructions* Frank Negron DO - 05/03/2023 9:51 AM EDT PATRICKJET POST-PROCEDURE INSTRUCTIONS 1. WOUND CARE - Keep bandages and procedure area clean and dry for 5 days - Avoid submerging area in water for 5 days - You did not have any sutures or stitches placed. Steri-strips were placed over the wound. These will fall off in the shower after about one week. If they have not fallen off after the first 9 days,you can remove them yourself. - CONTACT OUR OFFICE IF: - The area become red or hot to touch - You have a fever of 100 or more (but do not wait for a response, seek immediate care) - You have increased pain or swelling - You have drainage from the treatment site Best way to connect would be via [employer] or directly call Yamile at [phone]. If unable to connect, please proceed to the nearest Emergency Care Center. 2. POST-PROCEDURE PAIN CONTROL - You may apply ice for 20 minutes as needed for discomfort 3. WEEK BY WEEK SCHEDULE Weeks 1-2 Immobilization: Wrist brace 2 weeks Lifting restriction: NOTHING over 2-5 lbs and NO repetitive motions (ie mouse/phone/tablet/cooking/weight lifting/pushups) Activity/work limitations: Keep wrist in NEUTRAL postion Week 3-5 Therapy: Start PT program by week 2/3 Immobilization: Elbow strap as need for exercises Return to work/activity: as tolerated Month 3 Follow-up in the office with Dr. Negron Week 7+ Progress with your training or return to work. Typically, full results are noted at 3 months and beyond. Thank you for choosing the [facility] team for your care. Frank Negron D.O. [facility] Sports Health Team Physician, [facility] Yamile Reddy, Otorhinolaryngologist [phone] [facility] History of Present illness Narrative* Frank Negron DO - 05/03/2023 9:50 AM EDTAssociated Order(s): Minimally Invasive Tenotomy Post-Procedure Diagnose(s): Lateral epicondylitis of right elbow Lateral epicondylitis of right elbow (primary encounter diagnosis) Minimally Invasive Tenotomy Informed Consent Consent Obtained: Written [place] Protocol A moment to CARE was completed. SIGN IN Personnel directly involved with the procedure wore the appropriate PPE. Patient/Surrogate Stated/Verified: Patient name, Date of , Relevant allergies and Intended procedure TIME OUT Intended patient and procedure match the source document(s). Consent documented and matches the intended procedure. Relevant labs, photos, and/or imaging studies have been reviewed. Correct side/site marked and visible. Medications required for procedure verified. Fire risk assessed and interventions discussed. 05/03/2023 10:16 AM The procedure site was prepped in the usual sterile fashion. Site: Right common extensor tendon Details:Musculoskeletal ultrasound was utilized to successfully localize placement of the injectionneedle at the appropriate site. Ultrasound images demonstrating local vasculature and demonstratinginjection of solution were saved. Anesthetics: 2 mL lidocaine 1%-EPINEPHrine 1:100,000 1 %-1:100,000; 4 mL ROPivacaine (PF) 5 mg/mL (0.5 %) Minimally Invasive Tenotomy (TenJet) The treatment area was cleaned and draped in sterile fashion. Using sterile technique, musculoskeletal ultrasound (MSK-US) was used to successfully localize the area of pathology to be treated today.A gordo with a sterile marker was placed on the skin in the area of the intended incision site. Using sterile technique, the area of treatment was visualized under MSK-US where infiltration of anesthetic was utilized with a guiding needle. A separate injection was utilized to create a skin wheal at the incision site to control procedural bleeding. After acceptable regional anesthesia was reached, a 11-blade scalpel was utilized to make a stab incision at the marked treatment site. The Hydrocision TenJet needle device, under constant physician guided MSK-US visualization, was inserted to the area of pathological tissue. Maintaining this visualization, degenerative tissue was debrided and confirmed by the treating physician. Upon satisfaction of removal of the targeted degenerative tissue, the TenJet needle device was removed, compression was applied to the incisional site with sterile gauze. Bleeding was controlled and sterile strips were applied, with occlusive dressing and compression bandage. Patient left the procedure room in satisfactory condition having tolerated the procedure well. Outcome: tolerated well, no immediate complications Post-injection instructions were reviewed with the patient and the patient voiced understanding of these instructions. Estimated blood loss less than 5 mL no complications, Estimated blood loss less than 5 mL. SIGN OUT All instruments, equipment, possible retained foreign bodies accounted for. Frank Negron DO [facility]23 NoteHNO ID: [id number] Author: Marcelina Mcmanus OTR/Emely Service: ? Author Type: Occupational Therapist Type: Progress Notes Filed: 03/21/2023 4:01 PM Note Text: Episode Visit Count: 4 Therapist That Will Accept/Oversee The Plan Of Care: Estephania Whitt OT/Emely, T Start of Care Date: 02/22/23 Onset Date: 02/13/23 (date of script; symptom onset 2-3 year with exacerbation past year) Patient Identified by Name and Date of : Yes REHABILITATION AND SPORTS THERAPY OCCUPATIONAL THERAPY TREATMENT NOTE ASSESSMENT: Michelle Rivera tolerated the session with no issues. She demonstrated improvements in pain levels and tolerance to light resistive exercises/gripping. She was encouraged to continue with icing and stretching to feel stretch and not pain. The patient will continue to benefit from ongoing skilled occupational therapy to progress toward set goals. PLAN FOR NEXT VISIT: reassess pain levels, review and update home program as needed including light resistive exercises as tolerated SUBJECTIVE: ~2-3 yrs. onset of bilateral lateral epicondylitis (patient reports left tear worse than on right) PRP procedure 12/20/22 with potential Tenjet procedure in future Pt reports she always feels better following use of ice, but does feel more stiffness. She reports she had difficulty using spoon with modified IASTM due to having pain with gripping and when applying pressure with opposite hand. Pain: Pain Pain Level: 2 (at present, but does increase with lifting to 4/10) Pain Location: Elbow - Right Description: Aching, Dull (can be sharp with lifting) Post Treatment Pain Post Treatment Pain Level: No Change Post Treatment Pain Location: Elbow - Right OBJECTIVE MEASURES WITH LEVEL OF FUNCTION: No measurements taken this date formally TREATMENT: Therapeutic Exercise: 1: Discussed with patient her subjective experience since last treatment and reviewed her performance and compliance with plan of care 2: AROM bilateral wrist extension/flexion stretches with elbow flexed and also slightly extended performed. * Pt educated in option of making a fist with extensor stretching rather than using opposite hand to provide stretch. 3: completed use of light hand master with B hands x 10 reps each Skilled Intervention: Patient was educated in proper exercise technique and purpose for exercises. Reviewed and educated patient on additions/changes for home exercise program as above (*). Skilled judgment was provided in selection of appropriate interventions. Correct performance of therapeutic exercises was facilitated with verbal, visual, and tactile cuing. Manual Therapy: Soft Tissue Mobilization: soft tissue mobilization completed by therapist to R extensors and flexors to help reduce pain Skilled Intervention: Manual skills to improve joint mobility, ROM, and decrease pain. Utilized anatomy knowledge of the therapist, and assessment of patient's response to intervention. Home Program Assigned: 1: pt may make fist when completing stretches for extensors rather than using opposite hand to apply stretch Brief use of frozen water bottle rolling at end of session to reduce pain. Billing Therapeutic Exercise Treatment Minutes: 35 Manual Therapy Treatment Minutes: 10 Total Treatment Time Minutes (timed/untimed): 51 Session Start Time : 8 Session Stop Time : 847 LY Merino/Emely #[id number] Miscellaneous Notes* Telephone Encounter - Leslie Sparks RN - 03/08/2023 5:19 PM EDT Please see other encounter for documentation to patient. documented in [facility] encounterPro[facility]23 NoteHNO ID: [id number] Author: ANIYAH Drew Service: ? Author Type: Occupational Therapist Type: Progress Notes Filed: 03/07/2023 11:52 AM Note Text: Episode Visit Count: 3 Therapist That Will Accept/Oversee The Plan Of Care: Estephania Whitt OT/Emely, T Start of Care Date: 02/22/23 Onset Date: (Rx 02/13/23, symptom onset 2-3 yrs with exacerbation past year) Patient Identified by Name and Date of : Yes REHABILITATION AND SPORTS THERAPY OCCUPATIONAL THERAPY TREATMENT NOTE ASSESSMENT: Michelle Rivera tolerated is ~2-3 yrs. onset of bilateral lateral epicondylitis (patient reports left tear worse than on right) PRP procedure 12/20/22 with potential Tenjet procedure in future Patient today reports and demonstrates: *Reducing subjective pain bilaterally (although may be due to not working this week) *Significant bilateral director of strategic partnerships strength deficit (as noted below) *Good compliance with plan of care although heat making it more difficult to use compression sleeves, forearm strap/wrist braces as often. *Good tolerance to session and understanding of information provided. Patient is expected to continue to improve over time with skilled Occupational Therapy in conjunction with plan of care and medical management. PLAN FOR NEXT VISIT: Assess response to modified instrument assisted) soft tissue massage, use of pink gel ball for light PRE gripping, consider instruction and utilization of kinesiotaping SUBJECTIVE: ~2-3 yrs. onset of bilateral lateral epicondylitis (patient reports left tear worse than on right) PRP procedure 12/20/22 with potential Tenjet procedure in future PATIENT REPORTS: I am off this week and my pain is not as bad. I called my insurance company and they said they would cover any medical braces if the doctor writes a prescription. My right elbow Tenjet procedure is scheduled for May 03. This past week with the heat has been difficult to wear the compression sleeves and braces. This week I have not worked and my pain level is about 2/10. I have been using the ice massage a lot this past week and I am really liking it - it helps with soothing the pain and the cool temperature is helpful with the heat. Pain: Pain Pain Level: 1 (1/10 currently, up to 2/10 (previously up to 4-6/10 this week has not worked)) Pain Location: Elbow - Right Description: Sore Frequency: Continuous Pain Location 2: Elbow - Left (1/10 currently and up to 2/10 (this past week not working has helped reduced pain)) Detailed Pain Score: Yes Worst Pain Level: 2 Best Pain Level: 1 OBJECTIVE MEASURES WITH LEVEL OF FUNCTION: Female director of strategic partnerships norms: age 35-39 R: 50-99 L: 49-91 Hand Strength: Memory Care Director Position 2 Hand Strength R Memory Care Director Position 2 (lbs): 21 lbs (Slight increase in pain to 3/10) L Memory Care Director Position 2 (lbs): 40 lbs (No increase in pain remained at 1/10) TREATMENT: Therapeutic Exercise: 1: Discussed with patient her subjective experience since last treatment and reviewed her performance and compliance with plan of care 2: AROM bilateral wrist extension/flexion stretches with elbow flexed and also slightly extended performed 3: *[place] gel ball issued to patient; instructed, performed and added to home program gentle director of strategic partnerships PREs to home program 4: *Modified IASTM utilizing the back edge of a spoon was instructed, performed and added to home program 5: Soft tissue circular massage performed Skilled Intervention: Patient was educated in proper exercise technique and purpose for exercises. Reviewed and educated patient on additions/changes for home exercise program as above (*). Home Program Assigned: 1: [place] gel ball: director of strategic partnerships and hold each effort for 2-3 seconds, relax and repeat for 1-3 minutes each arm WITHOUT provoking pain levels. Hold arm with elbow flexed (eventually will work on gripping with arm/elbow less bent) Perform 2-3 sessions daily, gradually may work up to 4-5 sessions of 1-3 minutes 2: Using back side of a spoon and lotion on your arms, SLOWLY stroke the edge of spoon along your forearms to massage the area around the top/sides of both forearm for about 1-2 minutes, 2-3 sessions daily (without provoking pain levels) 3: Circular massage strokes also to forearms whenever you are able for 30-60 seconds at a time 4: CONTINUE to avoid any activities or motions that provoke pain levels. Billing Therapeutic Exercise Treatment Minutes: 40 Total Treatment Time Minutes (timed/untimed): 40 OFE Drew [facility] History of Present illness Narrative* ANIYAH rDew - 03/07/2023 10:50 AM EDT Episode Visit Count: 3 Therapist That Will Accept/Oversee The Plan Of Care: OFE Mancini Candis Start of Care Date: 02/22/23 Onset Date: (Rx 02/13/23, symptom onset 2-3 yrs with exacerbation past year) Patient Identified by Name and Date of : Yes REHABILITATION AND SPORTS THERAPY OCCUPATIONAL THERAPY TREATMENT NOTE ASSESSMENT: Michelle Rivera tolerated is ~2-3 yrs. onset of bilateral lateral epicondylitis (patient reports left tear worse than on right) PRP procedure 12/20/22 with potential Tenjet procedure in future Patient today reports and demonstrates: *Reducing subjective pain bilaterally (although may be due to not working this week) *Significant bilateral director of strategic partnerships strength deficit (as noted below) *Good compliance with plan of care although heat making it more difficult to use compression sleeves, forearm strap/wrist braces as often. *Good tolerance to session and understanding of information provided. Patient is expected to continue to improve over time with skilled Occupational Therapy in conjunction with plan of care and medical management. PLAN FOR NEXT VISIT: Assess response to modified instrument assisted) soft tissue massage, use of pink gel ball for light PRE gripping, consider instruction and utilization of kinesiotaping SUBJECTIVE: ~2-3 yrs. onset of bilateral lateral epicondylitis (patient reports left tear worse than on right) PRP procedure 12/20/22 with potential Tenjet procedure in future PATIENT REPORTS: I am off this week and my pain is not as bad. I called my insurance company and they said they would cover any medical braces if the doctor writes a prescription. My right elbow Tenjet procedure is scheduled for May 03. This past week with the heat has been difficult to wear the compression sleeves and braces. This week I have not worked and my pain level is about 2/10. Ihave been using the ice massage a lot this past week and I am really liking it - it helps with soothing the pain and the cool temperature is helpful with the heat. Pain: Pain Pain Level: 1 (1/10 currently, up to 2/10 (previously up to 4-6/10 this week has not worked)) Pain Location: Elbow - Right Description: Sore Frequency: Continuous Pain Location 2: Elbow - Left (1/10 currently and up to 2/10 (this past week not working has helpedreduced pain)) Detailed Pain Score: Yes Worst Pain Level: 2 Best Pain Level: 1 OBJECTIVE MEASURES WITH LEVEL OF FUNCTION: Female director of strategic partnerships norms: age 35-39 R: 50-99 L: 49-91 Hand Strength: Memory Care Director Position 2 Hand Strength R Memory Care Director Position 2 (lbs): 21 lbs (Slight increase in pain to 3/10) L Memory Care Director Position 2 (lbs): 40 lbs (No increase in pain remained at 1/10) TREATMENT: Therapeutic Exercise: 1: Discussed with patient her subjective experience since last treatment and reviewed her performance and compliance with plan of care 2: AROM bilateral wrist extension/flexion stretches with elbow flexed and also slightly extended performed 3: *[place] gel ball issued to patient; instructed, performed and added to home program gentle director of strategic partnerships PREs to home program 4: *Modified IASTM utilizing the back edge of a spoon was instructed, performed and added to home program 5: Soft tissue circular massage performed Skilled Intervention: Patient was educated in proper exercise technique and purpose for exercises. Reviewed and educated patient on additions/changes for home exercise program as above (*). Home Program Assigned: 1: [place] gel ball: director of strategic partnerships and hold each effort for 2-3 seconds, relax and repeat for 1-3 minutes each arm WITHOUT provoking pain levels. Hold arm with elbow flexed (eventually will work on gripping witharm/elbow less bent) Perform 2-3 sessions daily, gradually may work up to 4-5 sessions of 1-3 minutes 2: Using back side of a spoon and lotion on your arms, SLOWLY stroke the edge of spoon along your forearms to massage the area around the top/sides of both forearm for about 1-2 minutes, 2-3 sessionsdaily (without provoking pain levels) 3: Circular massage strokes also to forearms whenever you are able for 30-60 seconds at a time 4: CONTINUE to avoid any activities or motions that provoke pain levels. Billing Therapeutic Exercise Treatment Minutes: 40 Total Treatment Time Minutes (timed/untimed): 40 OFE Drew CHT documented in this encounterProtestant Hospital06-30-2023 NoteHNO ID: [id number] Author: ANIYAH Drew Service: ? Author Type: Occupational Therapist Type: Progress Notes Filed: 03/01/2023 9:31 AM Note Text: Episode Visit Count: 2 Therapist That Will Accept/Oversee The Plan Of Care: OFE Mancini, CHT Start of Care Date: 02/22/23 Onset Date: (Rx 02/13/23, symptom onset 2-3 yrs with exacerbation past year) Patient Identified by Name and Date of : Yes REHABILITATION AND SPORTS THERAPY OCCUPATIONAL THERAPY TREATMENT NOTE ASSESSMENT: Michelle Rivera tolerated the session with no issues Patient today reports and demonstrates: *Some reduction in resting subjective pain, but continues to have daily provocation during 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) *Inconsistent performance of pain mitigating measures *Improved understanding of need to increase consistency of avoiding exacerbating activity performance *Improved performance of modified wrist stretches (limiting pain levels) *Good understanding of potential benefits to increase use of wrist brace wearing *Considering ordering forearm/elbow sleeve that may be more comfortable, but will try the tg Memory Care Director 4.7 sleeve issued to day as an alternate to size G (size F too constrictive) *Gastric bypass surgeon requesting that patient work on strengthening even for upper extremities; she has concerns if or when will be able to do so. Patient is expected to improve over time with skilled Occupational Therapy treatment and increased consistency participation in plan of care recommendations. PLAN FOR NEXT VISIT: Re-assess subjective pain and patient's status, discuss if improved fit of tg Memory Care Director sleeves or if ordered alternate sleeve, discuss if able to utilize wrist brace more frequently during daytime activities. Consider initiation of light PRE strengthening; consider Kinesiotaping options as well as IASTM modified performance instruction SUBJECTIVE: ~2-3 yrs. onset of bilateral lateral epicondylitis (patient reports left tear worse than on right) PRP procedure 12/20/22 with potential Tenjet procedure in future PATIENT REPORTS: My pain right now is 1/10 at rest; and pain is not waking me up at night anymore. When doing things the pain does still go up to 3-4/10 and the right may have been a little higher. 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 I had a dog with a lot of matting on his fur and that was painful to comb out. The ice helps, but hard to find time to do while I am at work. I have been wearing the compression sleeves through the day but not at night. There are a little itchy and irritating - but the compression does feel comforting. Even when I move my fingers I even feel the pain in my right arm. Pain: Pain Pain Level: 1 (1/10 currently and at the least, still up to 4-6/10) Pain Location: Elbow - Right Description: Dull, Sharp, Sore (sharp at the highest pain intensities) Frequency: Continuous Pain Location 2: Elbow - Left Detailed Pain Score: Yes Worst Pain Level: 1 (Right and left up to 4-6/10) Best Pain Level: 1 (Right and left 1/10 at the least) OBJECTIVE MEASURES WITH LEVEL OF FUNCTION: No formal measurements taken this date TREATMENT: Therapeutic Exercise: 1: Reviewed with patient her subjective experience since last treatment session and her performance of current home program plan of care 2: AROM wrist extension/flexion performed 3: *Modified wrist extension (forearm pronated) stretches with elbow flexed and holding stretch for 5 seconds instructed, performed and added to home program 4: Soft tissue massage performed and reinforced Skilled Intervention: Patient was educated in proper exercise technique and purpose for exercises. Reviewed and educated patient on additions/changes for home exercise program as above (*). Self-Penitentiary Management: 1: Reinforced modification of daily activity performance - especially during dog grooming tasks 2: Reinforced icing 3: Discussed compression sleeve options and reviewed some types available online 4: *tg Memory Care Director (size 4.7 ) compression sleeve issued as option to utilize alone or in combination with forearm counterforce strap 5: Instructed daytime use of wrist brace (especially during dog grooming tasks) and demonstrated removal of metal stay from wrist brace (if hers has that option) to consider vs. not wearing at all Skilled Intervention: Educated patient in methods to promote pain reduction for optimal healing and 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 Daily Living modifications to facilitate performance but without least amount of pain exacerbation possible. Home Program Assigned: 1: Make ice accesible and have it out and ready to use quickly to make it easier to utilize. 2: Consider working on strength exercises for lower extremities vs. upper extremities (more content not included)...[facility]06-30-[facility] History of Present illness Narrative* ANIYAH Drew - 03/01/2023 8:01 AM EDT Episode Visit Count: 2 Therapist That Will Accept/Oversee The Plan Of Care: OFE Mancini, [facility] Start of Care Date: 02/22/23 Onset Date: (Rx 02/13/23, symptom onset 2-3 yrs with exacerbation past year) Patient Identified by Name and Date of : Yes REHABILITATION AND SPORTS THERAPY OCCUPATIONAL THERAPY TREATMENT NOTE ASSESSMENT: Michelle Rivera tolerated the session with no issues Patient today reports and demonstrates: *Some reduction in resting subjective pain, but continues to have daily provocation during 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) *Inconsistent performance of pain mitigating measures *Improved understanding of need to increase consistency of avoiding exacerbating activity performance *Improved performance of modified wrist stretches (limiting pain levels) *Good understanding of potential benefits to increase use of wrist brace wearing *Considering ordering forearm/elbow sleeve that may be more comfortable, but will try the tg Memory Care Director 4.7 sleeve issued to day as an alternate to size G (size F too constrictive) *Gastric bypass surgeon requesting that patient work on strengthening even for upper extremities; she has concerns if or when will be able to do so. Patient is expected to improve over time with skilled Occupational Therapy treatment and increased consistency participation in plan of care recommendations. PLAN FOR NEXT VISIT: Re-assess subjective pain and patient's status, discuss if improved fit of tg Memory Care Director sleeves or if ordered alternate sleeve, discuss if able to utilize wrist brace more frequently during daytime activities. Consider initiation of light PRE strengthening; consider Kinesiotaping options as well as IASTM modified performance instruction SUBJECTIVE: ~2-3 yrs. onset of bilateral lateral epicondylitis (patient reports left tear worse than on right) PRP procedure 12/20/22 with potential Tenjet procedure in future PATIENT REPORTS: My pain right now is 1/10 at rest; and pain is not waking me up at night anymore.When doing things the pain does still go up to 3-4/10 and the right may have been a little higher. 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 I had a dog with a lot of matting on his fur and that was painful to comb out. The ice helps, but hard to find time to do while I am at work. I have been wearing the compression sleeves through the day but not at night. There are a little itchy and irritating - but the compression does feel comforting. Even when I move my fingers I even feel the pain in my right arm. Pain: Pain Pain Level: 1 (1/10 currently and at the least, still up to 4-6/10) Pain Location: Elbow - Right Description: Dull, Sharp, Sore (sharp at the highest pain intensities) Frequency: Continuous Pain Location 2: Elbow - Left Detailed Pain Score: Yes Worst Pain Level: 1 (Right and left up to 4-6/10) Best Pain Level: 1 (Right and left 1/10 at the least) OBJECTIVE MEASURES WITH LEVEL OF FUNCTION: No formal measurements taken this date TREATMENT: Therapeutic Exercise: 1: Reviewed with patient her subjective experience since last treatment session and her performanceof current home program plan of care 2: AROM wrist extension/flexion performed 3: *Modified wrist extension (forearm pronated) stretches with elbow flexed and holding stretch for5 seconds instructed, performed and added to home program 4: Soft tissue massage performed and reinforced Skilled Intervention: Patient was educated in proper exercise technique and purpose for exercises. Reviewed and educated patient on additions/changes for home exercise program as above (*). Self-Penitentiary Management: 1: Reinforced modification of daily activity performance - especially during dog grooming tasks 2: Reinforced icing 3: Discussed compression sleeve options and reviewed some types available online 4: *tg Memory Care Director (size 4.7 ) compression sleeve issued as option to utilize alone or in combination withforearm counterforce strap 5: Instructed daytime use of wrist brace (especially during dog grooming tasks) and demonstrated removal of metal stay from wrist brace (if hers has that option) to consider vs. not wearing at all Skilled Intervention: Educated patient in methods to promote pain reduction for optimal healing and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 Daily Living modifications to facilitate performance but without least amount of painexacerbation possible. Home Program Assigned: 1: Make ice accesible and have it out and ready to use quickly to make it easier to utilize. 2: Consider working on strength exercises for lower extremities vs. upper extremities (to comply with your bariatric physicians request for exercises 3: Consider ordering a forearm/elbow compression sleeve (your arm circumference at level of mid armis about 15 - see photo on your phone for Rahat Eubanks option 4: [id number] WHO is the billing code for wrist braces (call and check with your insurance if they will cover the cost, if you would like to have physician put in Rx to see if insurance will cover it) 5: Stretches should be done SLOWLY and GENTLY with elbow flexed if necessary. Hold stretch for 5 seconds (with the least amount of increase in pain possible). Perform 5-10 stretches of wrist extension using left hand to assist and wrist flexion 3 sessions daily. 6: tg Memory Care Director compression sleeve (size 4.7 ) can be utilized instead of the size F or G previously issued if less itchiness and more comfortable Billing Therapeutic Exercise Treatment Minutes: 25 Self-Care/Home Management Treatment Minutes: 30 Total Treatment Time Minutes (timed/untimed): 55 OFE Drew, CHT documented in this encounterProtestant Hospital06-29-2023 Evaluation note* Encounter Date Diagnosis Assessment Notes Treatment Notes Treatment Clinical Notes Jan, Other spondylosis with radiculopathy, lumbar region (ICD-10 - M47.26) Jan, Lumbosacral spondylosis without myelopathy (ICD-10 - M47.817) We discussed treatment options for the patient's persistent low back pain. She shows notable pain consistent with degenerative changes of the lumbar spine. We discussed the possible benefit of treatment of the facet region for axial back pain. Patient is a reasonable candidate for repeat bilateral lumbar facet radiofrequency ablation. Risks and benefits of procedure explained to patient; patient verbalizes understanding. Additionally, patient will continue Lyrica 200 MG twice daily. She does not need a refill of medication at this time. She will also continue Low Dose Naltrexone as this appears to be providing relief of her widespread, generalized pain. Risks and side effects of this medication was discussed in detail with the patient who voiced understanding. She will call when she wishes to proceed with scheduling the procedure. Anatomy of spine discussed in detail inpatient in regard to patients condition. Jan, Chronic pain (ICD-10 - G89.29) Jan, Other Above note writ ten by Anthony Carcamo LPN, Cardiograph Operator. Edited and approved by Dr. Ed Malhotra MD. [facility] Other 06-29-2023 Evaluation note* Encounter Date Diagnosis Assessment Notes Treatment Notes Treatment Clinical Notes Jan, Lumbosacral spondylosis without myelopathy (ICD-10 - M47.817) [facility] Other 06-23-2023 NoteHNO ID: [id number] Author: ANIYAH Drew Service: ? Author Type: Occupational Therapist Type: Progress Notes Filed: 03/01/2023 9:13 AM Note Text: Episode Visit Count: 1 Therapist That Will Accept/Oversee The Plan Of Care: Estephania Whitt, OT/Emely, CHT Start of Care Date: 02/22/23 Onset Date: (Rx 02/13/23, symptom onset 2-3 yrs with exacerbation past year) Patient Identified by Name and Date of : Yes [facility]ER[facility] OCCUPATIONAL THERAPY EVALUATION PLAN OF CARE: Assessment: Michelle Rivera presents with diagnosis of right elbow pain and lateral epicondylitis that interferes with lifting, gripping (writing, cutting, using colt/clippers, putting youngest child into booster car seat) . PROMIS? (Patient-Reported Outcomes Measurement Information System) scores were reviewed and physical function domain and self efficacy domain identified as within normal limits. Prognosis for therapy is Good due to: good support system/ coping skills, current objective clinical presentation . Patient today reports and demonstrates: *No current paresthesias, sometimes numbness (not tingling) dorsum of right hand and on top of fingers when working long hours. *Inconsistent use of both counterforce forearm strap and wrist brace on right (no use for left) *Good tolerance to session and understanding of instructions provided *Functional wrist, forearm and digit AROM *Right thumb flexion/opposition limited to radial little finger Patient is expected to improve over time with consistent compliance with and performance of home program plan of care and skilled Occupational Therapy treatment in conjunction with medical care provided by referring doctor. Goals for Episode of Care created on 02/22/23 through 04/19/23 Patient will report a good understanding of diagnosis and OT recommendations for progression of program. Patient will demonstrate independence with ongoing home recommendations/exercise program throughout therapy plan of care. Patient will improve function in Bilateral elbows/forearms in order to be able to perform basic self-care tasks, home management tasks, and light functional tasks. Patient will report a decrease in pain in Right forearm/elbow to be no greater than 0/10 at rest and 2/10 with light functional use by end of treatment and be able to demonstrate and report understanding of methods to promote symptom/pain reduction/prevention. Patient will have assessment, treatment plan and goals established for director of strategic partnerships strength by Progress Note update. Patient will report a good understanding of the use of pain reducing modalities to help manage discomfort and promote healing. Patient will independently demonstrate good joint protection/body mechanics/postural control techniques during basic self-care tasks, home management tasks, and light functional tasks. Patient Goals: Relieve or eliminate pain in both forearms/elbows Planned Interventions, Frequency, and Duration: Current Frequency: 1x/week Duration: 8 weeks Total Number of Visits Planned: 8 Planned Treatment Interventions: Self-shelter management (92644), Neuromuscular re-education (29522), Manual therapy (20397), Therapeutic exercise (31189), Prefabricated orthosis fitting PLAN FOR NEXT VISIT: Assess response to ice massage, use of compression sleeve, increased consistency of counterforce strap/wrist brace, reinforce body ergonomics, further assess AROM and strength as tolerated Patient demonstrates good understanding of plan of care and treatment. The above goals and plan of care were discussed and agreed upon by patient/family. SUBJECTIVE: Michelle Rivera is a 38 year old female seen today for ~2-3 yrs. onset of bilateral lateral epicondylitis (patient reports left tear worse than on right) PRP procedure 12/20/22 with potential Tenjet procedure in future Patient here wearing counterforce band on right not left. Prior Level of Function: (Progressive modifications due to pain over the past several years) PATIENT REPORTS: I received PRP December 20 in my right forearm/elbow (the left has a worse tear but because I am right handed and use right more we did that first). After the PRP my right arm hurt for 3 weeks and I could not do much with my arm (I was already off work because of another surgery). The doctor said probably will also do the Tenjet procedure. When I was younger I used to power lift and not sure if that caused some of these problems. I also cared for my mother who had cancer and recently passed. 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 I have also had a lot of cortisone injections over the years so Dr. Negron said that could have also been partially causative. I wear a forearm strap during the day, but it is itchy and bothers me and not sure that it feels like it helps. At night I am supposed to wear a wrist brace but sometimes I (more content not included)...[facility]06-23-2023 History of Present illness Narrative* ANIYAH Drew - 02/22/2023 9:30 AM EDT Episode Visit Count: 1 Therapist That Will Accept/Oversee The Plan Of Care: Estephania Whitt OT/Emely, ALISE Start of Care Date: 02/22/23 Onset Date: (Rx 02/13/23, symptom onset 2-3 yrs with exacerbation past year) Patient Identified by Name and Date of : Yes [facility] OCCUPATIONAL THERAPY EVALUATION PLAN OF CARE: Assessment: Michelle Rivera presents with diagnosis of right elbow pain and lateral epicondylitis thatinterferes with lifting, gripping (writing, cutting, using colt/clippers, putting youngest child into booster car seat) . . PROMIS (Patient-Reported Outcomes Measurement Information System) scores were reviewed and physical function domain and self efficacy domain identified as within normal limits. Prognosis for therapy is Good due to: good support system/ coping skills, current objective clinical presentation . Patient today reports and demonstrates: *No current paresthesias, sometimes numbness (not tingling) dorsum of right hand and on top of fingers when working long hours. *Inconsistent use of both counterforce forearm strap and wrist brace on right (no use for left) *Good tolerance to session and understanding of instructions provided *Functional wrist, forearm and digit AROM *Right thumb flexion/opposition limited to radial little finger Patient is expected to improve over time with consistent compliance with and performance of home program plan of care and skilled Occupational Therapy treatment in conjunction with medical care provided by referring doctor. Goals for Episode of Care created on 02/22/23 through 04/19/23 Patient will report a good understanding of diagnosis and OT recommendations for progression of program. Patient will demonstrate independence with ongoing home recommendations/exercise program throughouttherapy plan of care. Patient will improve function in Bilateral elbows/forearms in order to be able to perform basic self-care tasks, home management tasks, and light functional tasks. Patient will report a decrease in pain in Right forearm/elbow to be no greater than 0/10 at rest and 2/10 with light functional use by end of treatment and be able to demonstrate and report understanding of methods to promote symptom/pain reduction/prevention. Patient will have assessment, treatment plan and goals established for director of strategic partnerships strength by Progress Note update. Patient will report a good understanding of the use of pain reducing modalities to help manage discomfort and promote healing. Patient will independently demonstrate good joint protection/body mechanics/postural control techniques during basic self-care tasks, home management tasks, and light functional tasks. Patient Goals: Relieve or eliminate pain in both forearms/elbows Planned Interventions, Frequency, and Duration: Current Frequency: 1x/week Duration: 8 weeks Total Number of Visits Planned: 8 Planned Treatment Interventions: Self-shelter management (05147), Neuromuscular re-education (60031), Manual therapy (04765), Therapeutic exercise (84383), Prefabricated orthosis fitting PLAN FOR NEXT VISIT: Assess response to ice massage, use of compression sleeve, increased consistency of counterforce strap/wrist brace, reinforce body ergonomics, further assess AROM and strength astolerated Patient demonstrates good understanding of plan of care and treatment. The above goals and plan of care were discussed and agreed upon by patient/family. 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 Prior Level of Function: (Progressive modifications due to pain over the past several years) PATIENT REPORTS: I received PRP December 20 in my right forearm/elbow (the left has a worse tear but because I am right handed and use right more we did that first). After the PRP my right arm hurt for 3 weeks and I could not do much with my arm (I was already off work because of another surgery). The doctor said probably will also do the Tenjet procedure. When I was younger I used to power lift and not sure if that caused some of these problems. I also cared for my mother who had cancer and recently passed. 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 I have also had a lot of cortisone injections over the years so Dr. Negron said that could have also been partially causative. I wear a forearm strap during the day, but it is itchy and bothers me and not sure that it feels like it helps.At night I am supposed to wear a wrist brace but sometimes I forget. The doctor instructed me and it helped when he put pressure but this strap doesn't seem to do the same. 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 [employer] Recreation / Current Exercise: None reported Hobbies / Interests: would like to be trained and certified for pet massage Home Environment Patient Lives With: Family (Lives with father, her 5 children (16, 14, 7, 5 and 4) and neice; daijadog (patient walks dog, he is trained and doesn't pull)) Pain: Pain Pain Level: 3 (3/10 currently and at the least, up to 4/10) Pain Location: Elbow - Right (at dorsal forearm and LE as well as into mid forearm) Description: Dull, Sharp, Sore Frequency: Continuous Additional Pain Information : Location 2 Pain Location 2: Elbow - Left Post Treatment Pain Post Treatment Pain Level: No Change PROMIS Scales Higher is Better 02/22/2023 Phys Func - Score 49 (within normal limits) Phys Func - Percentile 46 % Self-Eff Symptom - Score 55 (Average) Self-Eff Symptom - Percentile 69 % T-scores: mean of general population = 50. 5 points is clinically meaningfully difference Percentiles provide an indication of how the patient's score ranks in relation to the general population. Higher percentile rankings indicate better function/quality of life. 50th percentile is the average of the general population and indicates half of respondents had a worse score. OBJECTIVE MEASURES WITH LEVEL OF FUNCTION: Hand Elbow AROM: Bilateral Limitation Wrist AROM: Bilateral Limitation UE AROM R Wrist Extension: 65 Degrees R Wrist Flexion: 50 Degrees L Wrist Extension: 65 Degrees L Wrist Flexion: 60 Degrees Education: Education Learning Preferences: Demonstration, Explanation, Performance, Printed Materials Barriers: None Learning/educational needs: Home exercise program, Plan of Care Education Provided: Yes, see treatment interventions for education provided Education Provided To: Patient Education Mode/Type: Demonstration, Explanation/Discussion, Literature/Printed Materials, Performance, Teach Back Response to Education/Teach Back: States/Identifies, Return Demonstration TREATMENT: Evaluation Therapeutic Exercise: 1: Educated patient in plan of care as it relates to referring condition 2: *AROM wrist/forearm stretches instructed, performed, reinforced and image handout provided 3: *Soft tissue circular and cross-fiber massage instructed, performed and added to home program Skilled Intervention: Patient was educated in proper exercise technique and purpose for exercises. Reviewed and educated patient on additions/changes for home exercise program as above (*). Self-Penitentiary Management: 1: Body ergonomics and positioning discussed with patient to promote reduction of pain provocation 2: *Ice massage instructed, performed and added to home program 3: Reinforced benefit, purpose and need for use of counterforce;/forearm strap and wrist brace 4: *Compression sleeve issued size F and G to utilize beneath forearm strap or alone Skilled Intervention: Educated patient in methods to promote pain reduction while still allowing performance of 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 Daily Living Home Program Assigned: 1: Compression sleeve (size F which is 4 and size G which is 4 1/3 ) can be worn alone or beneath the counterforce/forearm strap 2: Ice Massage: utilizing a frozen water bottle holding with a paper towel in the other hand and lightly stroking your forearm/elbow area for 1-3 minutes, throughout the day 3: Wrist brace use with forearm strap during increased activity performance can be beneficial to reduce pain, may want to utilize over the next 2-4 weeks as consistently as possible removing only forhygiene, bathing and gentle motions exercises/massaging several times daily. Consider use at night if beneficial 4: Be aware of your body and arm position when lifting items; stand closer to the item and try to have your forearms in neutral (thumbs facing up) or forearms with palms facing down (not palm facing down which will more likely activate the painful tendons/muscles) 5: Review information of handout provided; be sure to implement recommendations for stretches to perform several times throughout the day and monitor your pain response to program Billing * Evaluation Low Complexity: 1 Unit Therapeutic Exercise Treatment Minutes: 10 Self-Care/Home Management Treatment Minutes: 15 Total Treatment Time Minutes (timed/untimed): 55 OFE Drew, CHT documented in [facility] encounterProtest[facility]06-15-2023 NoteHNO ID: [id number] Author: Frank Negron, DO Service: ? Author Type: Physician Type: Progress Notes Filed: 02/14/2023 12:57 PM Note Text: [facility] Office Visit Documentation Note [facility] [place] REASON FOR VISIT / CHIEF COMPLAINT SERVICE DATE: February 14, 2023 PCP: Bernarda Pinto CNP CHIEF COMPLAINT: Michelle Rivera is a 38 year old RHD female who presents today for follow up office visit for her right elbow. Previously had PRP injection 12/20/22. She reports having some relief from this. She rates pain at 4/10 dull/aching and sometimes sharp. Has been icing for relief. Patient presents with: Right Elbow - Established Patient HISTORY OF PRESENT ILLNESS (HPI) PAIN EVALUATION 02/14/2023 1120 Pain Level: 4 Pain at worst 6/10 Pain Location: Elbow-Right Description: Aching;Dull;Sharp Duration Units: Months Frequency: Intermittent Brief Review: right elbow pain Any new injury, since being seen last: No REVIEW OF SYSTEMS ROS: Neurologic: Any numbness or tingling in the LOCAL AREA? No Endocrine: Any diagnosis of diabetes? No ALLERGIES ALLERGIES Allergen Reactions Penicillins Hives Sulfa (Sulfonamide * Hives PAST MEDICAL HISTORY No past medical history on file. PHYSICAL EXAMINATION PHYSICAL EXAMINATION: Body Habitus:well nourished and no acute distress Psych: normal Sensation: sensation to light touch is grossly normal bilaterally Swelling: no swelling noted Specific MSK Exam Ortho Exam Pain with CET Good Elbow motion Improved CET pain with counterforce RADIOLOGY: IMAGING: ASSESSMENT / PLAN CLINICAL IMPRESSION / ASSESSMENT: (M25.521) Right elbow pain (primary encounter diagnosis) (M77.11) Lateral epicondylitis of right elbow RECOMMENDATION / PLAN: Advised: Tenjet - cannot d/t time away from work Avoid CSI Strap for work / Medrol pack x 1 only. Verbal health education was given to patient. Patient verbalizes understanding and agrees with the treatment plan as detailed above. Frank Negron D.O. [facility] [place] Team Physician, [facility] Consulting Physician, [place] Lexi Reddy, Otorhinolaryngologist [phone] 02-14-[facility] History of Present illness Narrative* Frank Negron DO - 02/14/2023 11:22 AM EDT Images from the original note were not included. [facility] Office Visit Documentation Note [facility] [place] REASON FOR VISIT / CHIEF COMPLAINT SERVICE DATE: February 14, 2023 PCP: Bernarda Pinto CNP CHIEF COMPLAINT: Michelle Rivera is a 38 year old RHD female who presents today for follow up office visit for her right elbow. Previously had PRP injection 12/20/22. She reports having some relief from this. She rates pain at 4/10 dull/aching and sometimes sharp. Has been icing for relief. Patient presents with: Right Elbow - Established Patient HISTORY OF PRESENT ILLNESS (HPI) PAIN EVALUATION 02/14/2023 1120 Pain Level: 4 Pain at worst 6/10 Pain Location: Elbow-Right Description: Aching;Dull;Sharp Duration Units: Months Frequency: Intermittent Brief Review: right elbow pain Any new injury, since being seen last: No REVIEW OF SYSTEMS ROS: Neurologic: Any numbness or tingling in the LOCAL AREA? No Endocrine: Any diagnosis of diabetes? No ALLERGIES ALLERGIES Allergen Reactions Penicillins Hives Sulfa (Sulfonamide * Hives PAST MEDICAL HISTORY No past medical history on file. PHYSICAL EXAMINATION PHYSICAL EXAMINATION: Body Habitus:well nourished and no acute distress Psych: normal Sensation: sensation to light touch is grossly normal bilaterally Swelling: no swelling noted Specific MSK Exam Ortho Exam Pain with CET Good Elbow motion Improved CET pain with counterforce RADIOLOGY: IMAGING: ASSESSMENT / PLAN CLINICAL IMPRESSION / ASSESSMENT: (M25.521) Right elbow pain (primary encounter diagnosis) (M77.11) Lateral epicondylitis of right elbow RECOMMENDATION / PLAN: Advised: Tenjet - cannot d/t time away from work Avoid CSI Strap for work / Medrol pack x 1 only. Verbal health education was given to patient. Patient verbalizes understanding and agrees with the treatment plan as detailed above. Frank Negron D.O. [facility] [place] Team Physician, [facility] Consulting Physician, [place] Lexi Reddy, Otorhinolaryngologist [phone] documented in this encounterProtestant Hospital06-02-2023 Miscellaneous Notes* Telephone Encounter - Lesly Sherman RN - 02/01/2023 10:42 AM EDT Sent message asking if order needed to be OT specifically. There is a valid PT order in the chart and Dr. Negron is not in the office at this time. Waiting on response. Lesly Sherman RN, BSN * Telephone Encounter - Amy Wilson - 01/24/2023 10:28 AM EDT Pt requesting OT order for elbow pain. It is affecting her job. Pt would like to complete this witha facility in [place], [place]. Pt does not have the fax number but will try to get this and call us back. [place] [facility] phone [phone] Patient has been identified by name and birthdate. Duration of symptoms: N/A Person calling: self Call patient at: on cell [phone] (home) Was an appointment scheduled: No Closing statement: Results or non-symptom based questions: Thank you for calling [facility], your call will be returned within the next business day. Amy Elliott Pss documented in this encounterProtestant Hospital05-11-2023 Evaluation note* Encounter Date Diagnosis Assessment Notes Treatment Notes Treatment Clinical Notes December, Lumbosacral spondylosis without myelopathy (ICD-10 - M47.817) [facility] Other 04-20-2023 NoteHNO ID: [id number] Author: Frank Negron, DO Service: ? Author Type: Physician Type: Progress Notes Filed: 12/20/2022 12:52 PM Note Text: Right elbow pain (primary encounter diagnosis) Lateral epicondylitis of both elbows Biologics Injection: R elbow Previously completed treatments/injections: Platelet Rich Plasma Informed Consent Consent Obtained: Written [place] Protocol A moment to CARE was completed. SIGN IN Personnel directly involved with the procedure wore the appropriate PPE. Patient/Surrogate Stated/Verified: Patient name, Date of , Relevant allergies and Intended procedure TIME OUT Intended patient and procedure match the source document(s). Consent documented and matches the intended procedure. Relevant labs, photos, and/or imaging studies have been reviewed. Correct side/site marked and visible. Medications required for procedure verified. Fire risk assessed and interventions discussed. 12/20/2022 12:51 PM The procedure site was prepped in the usual sterile fashion. Site: R elbow PRP Device/Protocol: Emcyte LR-PRP Right PRP injected: 1.3ml Total injected: 1.3ml Details:Guidance: Ultrasound Musculoskeletal ultrasound was utilized to successfully localize placement of the injection needle at the appropriate site. Ultrasound images demonstrating local vasculature and demonstrating injection of solution were saved. Anesthetics: 2 mL lidocaine (PF) 10 mg/mL (1 %) Outcome: Tolerated well, no immediate complications Post-injection instructions were reviewed with the patient and the patient voiced understanding of these instructions. SIGN OUT All instruments, equipment, possible retained foreign bodies accounted for. [facility]cesCh[facility]04-20-2023 History of Present illness Narrative* Frank Negron, DO - 12/20/2022 12:29 PM EDTAssociated Order(s): Biologics Injection: R elbow Post-Procedure Diagnose(s): Right elbow pain; Lateral epicondylitis of both elbows Right elbow pain (primary encounter diagnosis) Lateral epicondylitis of both elbows Biologics Injection: R elbow Previously completed treatments/injections: Platelet Rich Plasma Informed Consent Consent Obtained: Written [place] Protocol A moment to CARE was completed. SIGN IN Personnel directly involved with the procedure wore the appropriate PPE. Patient/Surrogate Stated/Verified: Patient name, Date of , Relevant allergies and Intended procedure TIME OUT Intended patient and procedure match the source document(s). Consent documented and matches the intended procedure. Relevant labs, photos, and/or imaging studies have been reviewed. Correct side/site marked and visible. Medications required for procedure verified. Fire risk assessed and interventions discussed. 12/20/2022 12:51 PM The procedure site was prepped in the usual sterile fashion. Site: R elbow PRP Device/Protocol: Emcyte LR-PRP Right PRP injected: 1.3ml Total injected: 1.3ml Details:Guidance: Ultrasound Musculoskeletal ultrasound was utilized to successfully localize placement of the injection needle at the appropriate site. Ultrasound images demonstrating local vasculature and demonstrating injection of solution were saved. Anesthetics: 2 mL lidocaine (PF) 10 mg/mL (1 %) Outcome: Tolerated well, no immediate complications Post-injection instructions were reviewed with the patient and the patient voiced understanding of these instructions. SIGN OUT All instruments, equipment, possible retained foreign bodies accounted for. Frank Negron DO documented in this encounterProtestant Hospital04-13-2023 Miscellaneous Notes* Telephone Encounter - Therese Leblanc - 12/13/2022 9:36 AM EDT Patient is asking if there is a way once she would pay for the injections for the elbow would she be able to get before 12/26 as she will not be able to do it after that due to her having no more time off work because of the prior surgery she had.Pt states Dr told her he would fit her in but I don't have any doc stating this. Patient states she can pay today as soon as she gets home. Patient would like someone to advise herat the [phone]. It is ok to leave a detailed VM if need Pt states she has a second # which is [phone] and that is the PT father Humphrey and you can leave a message with him as he goes to many of her appts with her. ( Per PT ) documented in this encounterProtestant Hospital04-04-2023 NoteHNO ID: [id number] Author: Frank Negron DO Service: ? Author Type: Physician Type: Progress Notes Filed: 12/04/2022 10:03 AM Note Text: [facility] Office Visit Documentation Note [facility] [place] HISTORY OF PRESENT ILLNESS (HPI) SERVICE DATE: December 04, 2022 PCP: No primary care provider on file. CHIEF COMPLAINT / REASON FOR VISIT Michelle Rivera is a 37 year old female who presents today for a follow-up evaluation of following complaint: Patient presents with: Left Elbow - Established Patient Right Elbow - Established Patient HISTORY OF PRESENT ILLNESS (HPI) PAIN EVALUATION 12/04/2022 0942 Pain Level: 4 at it's worst a 6 Pain Location: Elbow-Left bilateral Description: Radiating;Aching;Stabbing Duration Units: Years Frequency: Continuous Comments: cortisone injections, PT, braces Any new injury, since being seen last: No Patient reports that they are feeling remain unchanged from prior visit SOCIAL HISTORY: Tobacco Use: Types: Cigarettes PHYSICAL EXAMINATION PHYSICAL EXAMINATION: Body Habitus:well nourished and no acute distress Psych: normal Sensation: sensation to light touch is grossly normal bilaterally Swelling: no swelling noted Specific MSK Exam Ortho Exam On examination bilateral common extensor tendon is worse with common extensor exam under tension. Both elbows have decreased extension RADIOLOGY: IMAGING: No imaging was performed today. Last XR Elbow - Impression Only XR ELBOW SPECIAL VIEWS AP/LAT/OTHER RIGHT Exam End: 07/20/2022 9:22 AM (Final result) Impression: IMPRESSION: NORMAL EXCEPT FOR MINIMAL LATERAL EPICONDYLAR ENTHESOPATHY BILATERALLY Payroll Representative: SHAYNE Transcribe Date/Time: Jul 20 2022 10:34A ... Last MRI Elbow - Impression Only MRI ELBOW WO IVCON RT Exam End: 09/11/2022 11:27 AM (Final result) Impression: IMPRESSION: 1. Tendinosis and a small partial tear of the common extensor tendon origin. Payroll Representative: SHAYNE Transcribe Date/Time: Sep 11 2022 11:42A... 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 SEVERE ASSOCIATED HYPEREMIA. TEAR OF THE RADIAL COLLATERAL LIGAMENT, ALSO UNCHANGED. ... ASSESSMENT / PLAN CLINICAL IMPRESSION / ASSESSMENT: CLINICAL IMPRESSION / ASSESSMENT: (M77.11, M77.12) Lateral epicondylitis of both elbows (primary encounter diagnosis) (M25.522) Left elbow pain RECOMMENDATION / PLAN: Counseling / Referral I talked about treatment options at length today. Initially she would like a cortisone injection for pain and its been present to bilateral common extensor with partial tears and radial collateral ligament insufficiency for at least 2 to 3 years. I have educated her that these cortisone injections may further risk rupturing the tendon completely. We talked about Ortho Biologics in the form of platelet rich plasma-leukocyte rich platelet rich plasma at $750 per treatment. She would like to start likely with the right elbow URSULA. I would wear a wrist brace for at least 2 weeks after and then consider if she is doing well do the other side. We will hold off on oral medications given she just had bariatric surgery but add a topical compound DIEGO keto topically as needed. We talked about for this chronic likely chronic tear and fibrotic tissue, minimally invasive percutaneous tendon debridement should treatment above not satiate the pain Follow up: Written instructions (see patient instructions) and verbal health education given to patient. Patient verbalizes understanding and agrees with the treatment plan. Frank Negron D.O. [facility] [employer] Supervisor, Tendon [facility] AND [employer] Program Team Physician, [facility] [employer] Consulting Physician, [place] Lexi Reddy, Otorhinolaryngologist [phone] History of Present illness Narrative* Frank Negron DO - 12/04/2022 9:40 AM EDT Images from the original note were not included. [facility] Office Visit Documentation Note [facility] [place] HISTORY OF PRESENT ILLNESS (HPI) SERVICE DATE: December 04, 2022 PCP: No primary care provider on file. CHIEF COMPLAINT / REASON FOR VISIT Michelle Rivera is a 37 year old female who presents today for a follow-up evaluation of following complaint: Patient presents with: Left Elbow - Established Patient Right Elbow - Established Patient HISTORY OF PRESENT ILLNESS (HPI) PAIN EVALUATION 12/04/2022 0942 Pain Level: 4 at it's worst a 6 Pain Location: Elbow-Left bilateral Description: Radiating;Aching;Stabbing Duration Units: Years Frequency: Continuous Comments: cortisone injections, PT, braces Any new injury, since being seen last: No Patient reports that they are feeling remain unchanged from prior visit SOCIAL HISTORY: Tobacco Use: Types: Cigarettes PHYSICAL EXAMINATION PHYSICAL EXAMINATION: Body Habitus:well nourished and no acute distress Psych: normal Sensation: sensation to light touch is grossly normal bilaterally Swelling: no swelling noted Specific MSK Exam Ortho Exam On examination bilateral common extensor tendon is worse with common extensor exam under tension. Both elbows have decreased extension RADIOLOGY: IMAGING: No imaging was performed today. Last XR Elbow - Impression Only XR ELBOW SPECIAL VIEWS AP/LAT/OTHER RIGHT Exam End: 07/20/2022 9:22 AM (Final result) Impression: IMPRESSION: NORMAL EXCEPT FOR MINIMAL LATERAL EPICONDYLAR ENTHESOPATHY BILATERALLY Payroll Representative: SHAYNE Transcribe Date/Time: Jul 20 2022 10:34A ... Last MRI Elbow - Impression Only MRI ELBOW WO IVCON RT Exam End: 09/11/2022 11:27 AM (Final result) Impression: IMPRESSION: 1. Tendinosis and a small partial tear of the common extensor tendon origin. Payroll Representative: SHAYNE Transcribe Date/Time: Sep 11 2022 11:42A... 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 SEVERE ASSOCIATED HYPEREMIA. TEAR OF THE RADIAL COLLATERAL LIGAMENT, ALSO UNCHANGED. ... ASSESSMENT / PLAN CLINICAL IMPRESSION / ASSESSMENT: CLINICAL IMPRESSION / ASSESSMENT: (M77.11, M77.12) Lateral epicondylitis of both elbows (primary encounter diagnosis) (M25.522) Left elbow pain RECOMMENDATION / PLAN: Counseling / Referral I talked about treatment options at length today. Initially she would like a cortisone injection for pain and its been present to bilateral common extensor with partial tears and radial collateral ligament insufficiency for at least 2 to 3 years. I have educated her that these cortisone injections may further risk rupturing the tendon completely. We talked about Ortho Biologics in the form of platelet rich plasma-leukocyte rich platelet rich plasma at $750 per treatment. She would like to start likely with the right elbow URSULA. I would wear awrist brace for at least 2 weeks after and then consider if she is doing well do the other side. We will hold off on oral medications given she just had bariatric surgery but add a topical compound DIEGO keto topically as needed. We talked about for this chronic likely chronic tear and fibrotic tissue, minimally invasive percutaneous tendon debridement should treatment above not satiate the pain Follow up: Written instructions (see patient instructions) and verbal health education given to patient. Patient verbalizes understanding and agrees with the treatment plan. Frank Negron D.O. [facility] [employer] Supervisor, Tendon Center & [employer] Program Team Physician, [facility] [employer] Consulting Physician, [place] Lexi Yamile Josuebetsy, Otorhinolaryngologist [phone] documented in this encounterProtestant Hospital02-09-2023 Evaluation note* Encounter Date Diagnosis Assessment Notes Treatment Notes Treatment Clinical Notes Oct, Other spondylosis with radiculopathy, lumbar region (ICD-10 - M47.26) Patients primary complaint of pain continues to be persistent lumbar pain, radiating into the lateral aspect of her bilateral lower extremities. She notes a recent exacerbation of her symptoms which she attributes to physical therapy. At the patients request I will refer her to aquatic therapy for further treatment. Additionally, patient increased her Lyrica 100 MG twice daily to 200 MG twice daily prior to her visit today. This has provided relief without side effects therefore patient will continue on this dose. It has been explained she is not to increase her dose without instruction to do so. This medication was refilled today. Patient was instructed to take this as prescribed. Additonally, given her widespread complaints of nerve pain and failure of multiple treament options, along with fibromyalgia symptoms, I will trial the patient on Low Dose Naltrexone. Risks and side effects of this medication was discussed in detail with the patient who voiced understanding. We will follow up with the patient in one month, sooner if needed. Anatomy of spine discussed in detail inpatient in regard to patients condition. Oct, Lumbosacral spondylosis without myelopathy (ICD-10 - M47.817) Oct, Chronic pain (ICD-10 - G89.29) Oct, Other Above note writ ten by Amrit Vargas MA, Cardiograph Operator. Edited and approved by Dr. Ed Malhotra MD. [employer] Other 01-16-2023 NoteHNO ID: [id number] Author: Frank Negron DO Service: ? Author Type: Physician Type: Progress Notes Filed: 09/17/2022 10:48 AM Note Text: [facility] Office Visit Documentation Note [facility] [place] HISTORY OF PRESENT ILLNESS (HPI) SERVICE DATE: September 17, 2022 PCP: No primary care provider on file. CHIEF COMPLAINT / REASON FOR VISIT Michelle Rivera is a 37 year old female who presents today for a follow-up evaluation of following complaint: Patient presents with: Left Elbow - Follow Up HISTORY OF PRESENT ILLNESS (HPI) PAIN EVALUATION 09/17/2022 1016 Pain Level: 5 7/10 at worse Pain Location: Elbow-Left Description: Aching;Stabbing Duration Amount of Time: 2 Duration Units: Years ongoing for 8 years Frequency: Continuous Intervention/Comfort measure: Medication Any new injury, since being seen last: No Patient reports that they are feeling remain unchanged from prior visit SOCIAL HISTORY: Tobacco Use: Not on file PHYSICAL EXAMINATION PHYSICAL EXAMINATION: Body Habitus:well nourished and no acute distress Psych: normal Sensation: sensation to light touch is grossly normal bilaterally Swelling: no swelling noted Specific MSK Exam Ortho Exam Discussion RADIOLOGY: IMAGING: Last XR Elbow - Impression Only XR ELBOW SPECIAL VIEWS AP/LAT/OTHER RIGHT Exam End: 07/20/2022 9:22 AM (Final result) Impression: IMPRESSION: NORMAL EXCEPT FOR MINIMAL LATERAL EPICONDYLAR ENTHESOPATHY BILATERALLY Payroll Representative: SHAYNE Transcribe Date/Time: Jul 20 2022 10:34A ... Last MRI Elbow - Impression Only MRI ELBOW WO IVCON RT Exam End: 09/11/2022 11:27 AM (Final result) Impression: IMPRESSION: 1. Tendinosis and a small partial tear of the common extensor tendon origin. Payroll Representative: SHAYNE Transcribe Date/Time: Sep 11 2022 11:42A... ASSESSMENT / PLAN CLINICAL IMPRESSION / ASSESSMENT: CLINICAL IMPRESSION / ASSESSMENT: (M77.11, M77.12) Lateral epicondylitis of both elbows (primary encounter diagnosis) (M25.522) Left elbow pain (M25.521) Right elbow pain (M79.7) Fibromyalgia RECOMMENDATION / PLAN: Counseling / Referral A total of 20 minutes were spent [id number] with the patient during this encounter and over half of that time was spent on counseling and coordination of care, that time being 20 minutes. We discussed, in depth, She has had chronic elbow pain for greater than 8 years. She has a history of fibromyalgia. She has MRIs that shows the right common extensor to be mildly thickened and the left common extensor to have moderate tendinosis with likely a chronic rather than acute tear. I would recommend to add an ultrasound of the left elbow. Options include #1 bilateral PRP injections at $1500 [id number] Option #2 bilateral minimally invasive percutaneous tendon debridement Option #3 surgical consult.. Follow up: Okay to send a MyChart note on my recommendation after ultrasound of the left lateral elbow for evaluation of chronicity of common extensor tendon injury. Written instructions (see patient instructions) and verbal health education given to patient. Patient verbalizes understanding and agrees with the treatment plan. Frank Negron D.O. [facility] [employer] Supervisor, Tendon Center AND T[employer]E.A[employer] Program Team Physician, [facility] [employer] Consulting Physician, [place] Lexi Reddy, Otorhinolaryngologist [phone] Miscellaneous Notes* Telephone Encounter - Keshawn Castro - 09/17/2022 11:48 AM EST Pt is scheduled for their MSK US on 11/16 at [place]. * Telephone Encounter - Xander López - 09/17/2022 10:45 AM EST Visit Type: ANY MSK Visit Length: 45, 50 OR 60 MINUTES Order Name/Protocol: US ELBOW LT; LATERAL Preferred Provider: N/A Comment: Please ask if the patient has ever had any prior surgery to their LT ELBOW. If so, upgradethe visit type to an MSK1 and notate the surgical hx in the Appointment Note. Location: Depending on the surgical hx, this patient can have this exam performed at any of our three locations. Slot held: N/A documented in this encounterProtestant Hospital01-16-2023 Instructions* Patient Instructions* Frank Negron DO - 09/17/2022 10:35 AM EST IMAGING & LABORATORY Dr. Negron has requested further imaging to help coordinate your individualized plan of care. Most of these images will need to be appropriately scheduled. MRI/CT/Xray : Please stop at the front desk associate to coordinate timing and scheduling of your image. IF your image is completed outside of the [facility], two steps will need to be taken and presented to Dr. Negron's office for review. 1. Gather a CD copy of your image at the time of service. 2. Gather Radiology Report, when available. Reports can be faxed to [phone]. MSK Ultrasound : Please call [phone] to schedule your ultrasound appointment. LAB Requests: These can be completed at your nearest [facility] LAB facility. Please allow for up to one week for results to finalize. Follow up: You may request [employer] release of your imaging at 3 DAYS after your imaging appointment. Dr. Negron will often read the image and make a recommendation through [employer]. Please understand, that due to the complexity of the presenting issue, many patients will need a physical examination even after their imaging, which would require a follow up officeappointment. To make an appointment, please call [phone] or Request Appointment option in [employer]. Thank you. Dr. Jamil Negron D.O. [facility] [place] Team Physician, [facility] Consulting Physician, [facility] Yamile Reddy, Otorhinolaryngologist [phone] documented in this encounterProtestant Hospital01-16-2023 History of Present illness Narrative* Frank Negron DO - 09/17/2022 10:15 AM EST Images from the original note were not included. [facility] Office Visit Documentation Note [facility] [place] HISTORY OF PRESENT ILLNESS (HPI) SERVICE DATE: September 17, 2022 PCP: No primary care provider on file. CHIEF COMPLAINT / REASON FOR VISIT Michelle Rivera is a 37 year old female who presents today for a follow-up evaluation of following complaint: Patient presents with: Left Elbow - Follow Up HISTORY OF PRESENT ILLNESS (HPI) PAIN EVALUATION 09/17/2022 1016 Pain Level: 5 7/10 at worse Pain Location: Elbow-Left Description: Aching;Stabbing Duration Amount of Time: 2 Duration Units: Years ongoing for 8 years Frequency: Continuous Intervention/Comfort measure: Medication Any new injury, since being seen last: No Patient reports that they are feeling remain unchanged from prior visit SOCIAL HISTORY: Tobacco Use: Not on file PHYSICAL EXAMINATION PHYSICAL EXAMINATION: Body Habitus:well nourished and no acute distress Psych: normal Sensation: sensation to light touch is grossly normal bilaterally Swelling: no swelling noted Specific MSK Exam Ortho Exam Discussion RADIOLOGY: IMAGING: Last XR Elbow - Impression Only XR ELBOW SPECIAL VIEWS AP/LAT/OTHER RIGHT Exam End: 07/20/2022 9:22 AM (Final result) Impression: IMPRESSION: NORMAL EXCEPT FOR MINIMAL LATERAL EPICONDYLAR ENTHESOPATHY BILATERALLY Payroll Representative: SHAYEN Transcribe Date/Time: Jul 20 2022 10:34A ... Last MRI Elbow - Impression Only MRI ELBOW WO IVCON RT Exam End: 09/11/2022 11:27 AM (Final result) Impression: IMPRESSION: 1. Tendinosis and a small partial tear of the common extensor tendon origin. Payroll Representative: SHAYNE Transcribe Date/Time: Sep 11 2022 11:42A... ASSESSMENT / PLAN CLINICAL IMPRESSION / ASSESSMENT: CLINICAL IMPRESSION / ASSESSMENT: (M77.11, M77.12) Lateral epicondylitis of both elbows (primary encounter diagnosis) (M25.522) Left elbow pain (M25.521) Right elbow pain (M79.7) Fibromyalgia RECOMMENDATION / PLAN: Counseling / Referral A total of 20 minutes were spent [id number] with the patient during this encounter and over half of that time was spent on counseling and coordination of care, that time being 20 minutes. We discussed, in depth, She has had chronic elbow pain for greater than 8 years. She has a history of fibromyalgia. She has MRIs that shows the right common extensor to be mildly thickened and the left common extensor to have moderate tendinosis with likely a chronic rather than acute tear. I would recommend to add an ultrasound of the left elbow. Options include #1 bilateral PRP injections at $1500 [id number] Option #2 bilateral minimally invasive percutaneous tendon debridement Option #3 surgical consult.. Follow up: Okay to send a MyChart note on my recommendation after ultrasound of the left lateral elbow for evaluation of chronicity of common extensor tendon injury. Written instructions (see patient instructions) and verbal health education given to patient. Patient verbalizes understanding and agrees with the treatment plan. Frank Negron D.O. [facility] [employer] Supervisor, Tendon Center & T[employer] Program Team Physician, [facility] [employer] Consulting Physician, [place] Lexi Reddy, Otorhinolaryngologist [phone] documented in this encounterProtestant Hospital01-10-2023 NoteHNO ID: [id number] Author: RT Dickson(R) Service: ? Author Type: Technologist Type: Progress Notes Filed: 09/11/2022 11:22 AM Note Text: Radiology Service Progress Note PATIENT NAME: Michelle Rivera DATE OF SERVICE: September 11, 2022 TIME: 11:22 AM PATIENT IDENTITY VERIFICATION COMPLETED USING TWO (2) IDENTIFIERS: Name and Date of confirmed by patient verbally. FALL SCREENING: Has the patient had 2 falls in the last year or 1 fall with injury or currently using an Ambulatory Assistive Device (Walker, Cane, Wheelchair, Crutches, etc.)? No PATIENT GENDER DATA: Female. status: : No status: NO. PATIENT RELEVANT IMPLANT DATA REVIEWED: Yes RADIOLOGY DEPARTMENT: MR; Exam(s) Completed: Upper MSK: Elbow, bilateral PERIPHERAL IV DATA: Not applicable SIGNED BY: RT Dickson(R) September 11, 2022 11:22 [facility]01-10-2023 History of Present illness Narrative* RT Dickson(R) - 09/11/2022 11:22 AM EST Radiology Service Progress Note PATIENT NAME: Michelle Rivera DATE OF SERVICE: September 11, 2022 TIME: 11:22 AM PATIENT IDENTITY VERIFICATION COMPLETED USING TWO (2) IDENTIFIERS: Name and Date of confirmedby patient verbally. FALL SCREENING: Has the patient had 2 falls in the last year or 1 fall with injury or currently using an Ambulatory Assistive Device (Walker, Cane, Wheelchair, Crutches, etc.)? No PATIENT GENDER DATA: Female. status: : No status: NO. PATIENT RELEVANT IMPLANT DATA REVIEWED: Yes RADIOLOGY DEPARTMENT: MR; Exam(s) Completed: Upper MSK: Elbow, bilateral PERIPHERAL IV DATA: Not applicable SIGNED BY: RT Dickson(R) September 11, 2022 11:22 AM documented in this encounterProtestant Hospital01-09-2023 Evaluation note* Encounter Date Diagnosis Assessment Notes Treatment Notes Treatment Clinical Notes Sep, Other spondylosis with radiculopathy, lumbar region (ICD-10 - M47.26) We discussed treatment options for the patient's persistent lumbar pain, radiating into the lateral aspect of her bilateral lower extremities. Patient has failed multiple previous conservative treatment options and continue to complain of progressing symptoms. We will provide a prescription for physical therapy today. In the meantime she will continue her Lyrica 100 mg twice daily. An OARRS report was processed and reviewed and shows no violations. In the future if the pain persists, we can consider back on trek in [place], chronic pain therapy. . Anatomy of spine discussed in detail inpatient in regard to patients condition. Sep, Lumbosacral spondylosis without myelopathy (ICD-10 - M47.817) Sep, Chronic pain (ICD-10 - G89.29) Sep, Other Above note writ ten by Anthony Carcamo LPN, Cardiograph Operator. Edited and approved by Dr. Ed Malhotra MD. [place] [employer] [place] Other 12-19-2022 NoteHNO ID: [id number] Author: RT Steve(R) Service: Radiology Author Type: Technologist Type: Progress Notes Filed: 08/20/2022 10:54 AM Note Text: Radiology Service Progress Note PATIENT NAME: Michelle Rivera DATE OF SERVICE: August 20, 2022 TIME: 10:54 AM PATIENT IDENTITY VERIFICATION COMPLETED USING TWO (2) IDENTIFIERS: Name and Date of confirmed by patient verbally and Name and Date of confirmed by identification band. FALL SCREENING: Has the patient had 2 falls in the last year or 1 fall with injury or currently using an Ambulatory Assistive Device (Walker, Cane, Wheelchair, Crutches, etc.)? No PATIENT GENDER DATA: Female. status: : No status: NO. PATIENT RELEVANT IMPLANT DATA REVIEWED: Not Applicable RADIOLOGY DEPARTMENT: General X-ray: Exam(s) Completed: Spine X-Ray(s): Cervical AP / LAT / OBL PERIPHERAL IV DATA: Not applicable SIGNED BY: RT Steve(R) August 20, 2022 10:54 [id number] History of Present illness Narrative* Frank Kim Jamil, DO - 08/20/2022 9:59 AM EST Images from the original note were not included. [facility] Office Visit Documentation Note [facility] [place] HISTORY OF PRESENT ILLNESS (HPI) CHIEF COMPLAINT / REASON FOR VISIT SERVICE DATE: August 20, 2022 PCP: No primary care provider on file. Michelle Rivera is here today at request of Libia Gomez MD specifically for consultation of my opinion in regards to the chief complaint listed below. Correspondence will be shared today via the [employer] record or through regular mail, where applicable. Michelle Rivera is a 37 year old female who presents today for a new evaluation of following complaint: Patient presents with: Left Elbow - New Right Elbow - New HISTORY OF PRESENT ILLNESS (HPI) PAIN EVALUATION 08/20/2022 0952 08/20/2022 0954 Pain Level: 5 4 7-8/10 at worst 6-7/10 at worst Pain Location: Elbow-Left Elbow-Right Description: -- -- just hurts just hurts Duration Amount of Time: -- -- ongoing ongoing Duration Units: Years Years Frequency: Continuous Continuous Intervention/Comfort measure: Medication Medication;Exercise CSI x 3 March/Apr with little relief cortisone 3-4 with little relief with the presenting complaint of New of the Left Elbow and New of the Right Elbow Brief overview: Patient here for consult from Dr Gomez for bilateral elbow pain x years. Patient reports pain is on lateral side. Multiple CSI injections done with little relief. Last done April. Wrist braces do not help, therapy with little relief. Aggravating Factors Does anything make it worse?: lifting, rotation motions, tender to touch Michelle reports a current pain level of 4 (6-7/10 at worst) (Elbow-Right). The pain is Continuous . Interventions tried include Medication, Exercise (cortisone 3-4 with little relief). She was last seen in orthopaedic clinic for her elbow on 07/20/2022 with Libia Gomez. Most recent elbow imaging was completed on 07/20/2022 (XR ELBOW SPECIAL VIEWS AP/LAT/OTHER RIGHT) , 07/20/2022 (XR ELBOW SPECIAL VIEWS AP/LAT/OTHER LEFT) . PREVIOUS TREATMENTS: Treatments so far have included medication (Naproxen) and prednisone, physical therapy (completed in the past), and injection (steroid injection to the bilateral elbow x 3-4 injections ). REVIEW OF SYSTEMS ROS: Neurologic: Any numbness or tingling? No Endocrine: Any diagnosis of diabetes? No ALLERGIES ALLERGIES Allergen Reactions Penicillins Hives Sulfa (Sulfonamide * Hives PAST MEDICAL HISTORY No past medical history on file. PHYSICAL EXAMINATION Body Habitus: well nourished, no acute distress, and endomorphic Psych: Patient is very dramatic on any subtle movements. Of note, she can fully flex her right elbow and adjust her glasses or her mask for example without any significant pain. But if I asked her todo so, she has severe pain Sensation: Hypersensitive to palpation of the anterior elbow all the way to the posterior lateral elbow. Very sensitive to palpation of the deltoids bilaterally Skin: Color, texture, turgor normal. No rashes or lesions Swelling: no swelling noted Gait: Normal, the patient did not have trouble getting onto the exam table. ORTHO EXAM: Ortho Exam Exam is fairly difficult because Michelle has a very tearful disposition and she has difficulty with me even with light palpation of less than 1 to 2 pounds of pressure over the common extensor tendons to both elbows but left being worse than the right. Her stance is a very typical upper crossed syndrome with a protracted bilateral shoulder and an anterior seated cervical spine. She is moderately weak. She reports reproduction of a radial pattern numbness to the back to the left hand on examination IMAGING/LABORATORY IMAGING: Last XR Elbow - Impression Only XR ELBOW SPECIAL VIEWS AP/LAT/OTHER RIGHT Exam End: 07/20/2022 9:22 AM (Final result) Impression: IMPRESSION: NORMAL EXCEPT FOR MINIMAL LATERAL EPICONDYLAR ENTHESOPATHY BILATERALLY Payroll Representative: SHAYNE Transcribe Date/Time: Jul 20 2022 10:34A ... ASSESSMENT / PLAN CLINICAL IMPRESSION / ASSESSMENT: CLINICAL IMPRESSION / ASSESSMENT: (M25.522) Left elbow pain (primary encounter diagnosis) (M77.11, M77.12) Lateral epicondylitis of both elbows (M25.521) Right elbow pain (M79.7) Fibromyalgia (F41.9) Anxiety (G47.30) Sleep apnea, unspecified type (M54.2) Cervicalgia RECOMMENDATION / PLAN: In summary this is a 37-year-old female with sleep apnea with 5 children who has poor sleep, poor exercise, and increased history of anxiety-recently starting new medication. She has a history of Polina's thyroiditis and history of fibromyalgia. She has had refractory treatment of bilateral elbows with no improvement after having cortisone injections multiple times, Kinesiotape, some physical therapy, resisted tennis elbow straps etc. My recommendation will be the following. #1 x-rays of the cervical spine and we must consider cervical radiculopathy is the main player as well as fibromyalgia 2. We can consider MS[facility] ultrasound formally of the bilateral common extensor tendon although I do not think this is the main location of the pain 3. Consideration of optimization of her underlying health including better sleep, better activity modification and weight control. 4. She has clear follow-up with her psychiatric team and this is helping her in the long run. 5. I would consider an autoimmune work-up as she has multiple areas of joint pain including bilateral hips bilateral shoulders bilateral elbows bilateral knees and bilateral ankles. Follow up: after advanced imaging is complete to discuss results and next step in management Written instructions (see patient instructions) and verbal health education given to patient. Patient verbalizes understanding and agrees with the treatment plan. Frank Negron D.O. [facility] [employer] Supervisor, [facility] Program Team Physician, [facility] [employer] Consulting Physician, [place] Lexi Reddy, Otorhinolaryngologist [phone] documented [facility] Evaluation note* Encounter Date Diagnosis Assessment Notes Treatment Notes Treatment Clinical Notes Aug, Other spondylosis with radiculopathy, lumbar region (ICD-10 - M47.26) We discussed treatment options for the patient's persistent lumbar pain, radiating into the lateral aspect of her bilateral lower extremities. Patient has failed multiple previous conservative treatment options and continue to complain of progressing symptoms. Given MRI results, as well as location of pain and exam findings, patient is a candidate for a caudal epidural steroid injection under fluoroscopic guidance, which we will proceed with. Risks and benefits of procedure explained to patient; patient verbalizes understanding. In the meantime we will increase her Lyrica 100 mg twice daily. An OARRS report was processed and reviewed and shows no violations. Anatomy of spine discussed in detail inpatient in regard to patients condition. Aug, Lumbosacral spondylosis without myelopathy (ICD-10 - M47.817) Aug, Chronic pain (ICD-10 - G89.29) Aug, Other Above note writ ten by Anthony Carcamo LPN, Cardiograph Operator. Edited and approved by Dr. Ed Malhotra MD. [facility] Other 11-18-2022 History of Present illness Narrative* Libia Gomez, - 07/20/2022 9:36 AM EST Images from the original note were not included. SERVICE DATE: July 20, 2022 PCP: No primary care provider on file. Consult requested by nobody for an opinion regarding chief complaint as stated below. My final impression and recommendations will be communicated back to the requesting physician by way of the shared medical record or letter via US mail. Subjective Patient ID: Michelle is a 37 year old female. Here today with a long history of bilateral lateral epicondylitis of her elbows. She has had multiple injections in both of her elbows she does use multiplesplints. Has had physical therapy. 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 She also has 6 children to take care of which also irritates her elbows. She does her daily stretches. She has been on multiple Medrol Dosepak's for her pain. Chief Complaint: Patient presents with: Right Elbow - New Left Elbow - New PAIN EVALUATION 07/20/2022 0927 Pain Level: 4 Pain Location: Elbow-Right elbow-left Description: Throbbing Duration Units: Years Frequency: Intermittent Intervention/Comfort measure: Medication HPI TREATMENTS PRIOR TO INITIAL CONSULT: Right Corticosteroid Injection(s) Left Corticosteroid Injection(s) Review of Systems There is no problem list on file for this patient. No past medical history on file. No past surgical history on file. No family history on file. ALLERGIES Not on File MEDICATIONS: No prescriptions on file. Allergies, medications, past surgical history, family history and past medical history were reviewed per this encounter. Objective Ortho Exam alert pleasant female oriented x3. She has full range of motion of both of her elbows. She is point tender to palpation over her lateral epicondyles bilaterally. She has a positive Kozan'ssign. Increased discomfort with resisted clenched fist is also noted. There is no varus or valgus in stability noted of her elbow no anterior posterior instability of her elbow. Neurovascular is otherwise intact into her upper extremities with full range of motion of her shoulders and wrist. X-rays of her elbows AP and lateral are negative for osseous abnormalities. Assessment/Plan ASSESSMENT Diagnosis (M77.11, M77.12) Lateral epicondylitis of both elbows (primary encounter diagnosis) Plan: CONSULT TO ORTHOPAEDICS Office Visit on 07/20/22 CONSULT TO ORTHOPAEDICS PLAN I recommend a consult to sports medicine for possible tendon jet treatment of her elbows. FOLLOW-UP: Return Consult to sports medicine. I reviewed the information obtained and documented by the me. I examined the patient and evaluated all available films and pertinent documents. We discussed the case and I agree with the plans as outlined in this note. SIGNATURE: Libia Gomez DO PATIENT NAME: Michelle Rivera DATE: July 20, 2022 TIME: 9:48 AM documented in this encounterProtest[facility]08-23-[facility]22 Evaluation note* Encounter Date Diagnosis Assessment Notes Treatment Notes Treatment Clinical Notes Apr, Other spondylosis with radiculopathy, lumbar region (ICD-10 - M47.26) Patients denies any radiating symptoms into her lower extremities following a recent lumbar epidural steroid injection. We will continue to monitor. Apr, Lumbosacral spondylosis without myelopathy (ICD-10 - M47.817) Patients primary complaint today continues to be worsening low lumbar pain. She shows notable pain consistent with the facet region upon exam which is supported by previous imaging. Based on previous positive results, as well as location of pain and exam findings, patient is a candidate for bilateral lumbar facet radiofrequency ablations which we will proceed with. Risks and benefits of procedure explained to patient; patient verbalizes understanding. Anatomy of spine discussed in detail with patient in regards to patients condition. Apr, Chronic pain (ICD-10 - G89.29) Lyrica appears to be providing some relief of the patients generalized pain symptoms. This medication was refilled today. OARRS was processed and reviewed, no discrepencies. Apr, Other Above note writ ten by Amrit Vargas MA, Cardiograph Operator. Edited and approved by Dr. Ed Malhotra MD. [facility] Other 08-16-2022 [facility]* Encounter Date Diagnosis Assessment Notes Treatment Notes Treatment Clinical Notes Mar, Other spondylosis with radiculopathy, lumbar region (ICD-10 - M47.26) Patients denies any radiating symptoms into her lower extremities following a recent lumbar epidural steroid injection. We will continue to monitor. Mar, Lumbosacral spondylosis without myelopathy (ICD-10 - M47.817) Patients primary complaint today is worsening low lumbar pain. She shows notable pain consistent with the facet region upon exam which is supported by previous imaging. Based on previous positive results, as well as location of pain and exam findings, patient is a candidate for bilateral lumbar facet medial branch blocks which we will proceed with. It was further explained should this provide significant short term relief we will proceed with a radiofrequency ablation. Risks and benefits of procedure explained to patient; patient verbalizes understanding. Additonally, given her widespread complaints, I will trial the patient on Lyrica 75 MG twice daily. OARRS was processed and reviewed, no discrepencies. Risks and side effects of this medication was discussed in detail with the patient who voiced understanding. Anatomy of spine discussed in detail with patient in regards to patients condition. Mar, Chronic pain (ICD-10 - G89.29) Mar, Other low back pain (ICD-10 - M54.59) Mar, Other Above note writ ten by Amrit Vargas MA, Cardiograph Operator. Edited and approved by Dr. Ed Malhotra MD. [facility] Other 07-18-2022 Evaluation note* Encounter Date Diagnosis Assessment Notes Treatment Notes Treatment Clinical Notes Mar, Left elbow pain (ICD-10 - M25.522) Mar, Lateral epicondylitis of left elbow (ICD-10 - M77.12) Michelle returns with ongoing bilateral elbow lateral epicondylitis. At this juncture we have discussed the findings and diagnosis as well as reviewed appropriate imaging and performed interpretation of related testing and examination. Prior medical notes and history have been reviewed. At this time I would recommend counterforce bracing, anti-inflammatory medications, home exercise program for stretching and a cortisone injection which patient agrees to. Today under sterile technique the patient's lateral epicondyle and common extensor origin were injected in a barbotage type fashion with 1 cc of Marcaine 1 cc of Kenalog. She tolerated this well. The patient has been involved in our cooperative treatment plan and agrees to move forward with treatment at this time. At least 3 minutes was spent counseling regarding the importance of smoking cessation. It was discussed how this relates to their overall health as well as current pain symptoms. She does mention that she is planning to undergo bariatric surgery help with her weight. I discussed referral to Dr. Chaney for nonsurgical management as the patient did not like the idea of surgery. She does agree to have evaluation with Dr. Chaney and I have placed a referral today. She may follow-up with me as needed We performed a 1/1cc marcaine / kenalog cortisone injection into the lateral epicondylitis under sterile technique. Patient tolerated the injection well without adverse reaction. Prescription for medrol dose pack sent into patients pharmacy. Patient given AAOS handout Mar, Acute bilateral low back pain, unspecified whether sciatica present (ICD-10 - M54.5) We did not see Michelle for this today but she did bring it up. She tells me she has a history. Follow-up with therapy. She is working on weight loss Mar, Morbid (severe) obesity due to excess calories (ICD-10 - E66.01) Today we discussed obesity. We discussed the range of BMI and the patient's BMI of 43. We discussed weight loss strategies through increased physical activity as well as decrease caloric intake. We offered referral for bariatric services. Our discussion is limited to 5 minutes. Discussed with patient we will send a referral for Dr. Chaney Mar, Right lateral epicondylitis (ICD-10 - M77.11) Same treatment as above for left. She would like to try an injection today. Under sterile technique the patient's right lateral epicondyle was treated with 1 cc of Marcaine 1 cc of Kenalog and barbotaged type fashion. She tolerated this well. Anti-inflammatories , bracing, stretching as instructed We performed a 1/1cc marcaine / kenalog cortisone injection into the lateral epicondylitis under sterile technique. Patient tolerated the injection well without adverse reaction. Mar, Other low back pain (ICD-10 - M54.59) Patient has history of lumbar epidural injections. Would update lumbar spine films and refer to Dr. Terrell Malhotra for possible injections. [facility] Other 04-28-2022 Evaluation note* Encounter Date Diagnosis Assessment Notes Treatment Notes Treatment Clinical Notes Dec, Other low back pain (ICD-10 - M54.59) Dec, Other spondylosis with radiculopathy, lumbar region (ICD-10 - M47.26) Patient's main complaint continues to be her back pain symptoms with worsening radiating pain into bilateral groin and lower extremities. Recent MRI results show evidence of muti-level degenerative changes, possibly contributing to her pain symptoms. Based on location of pain and exam findings, patient is a candidate for a lumbar epidural steroid injection which we will proceed with. Risks and benefits of procedure explained to patient; patient verbalizes understanding. Anatomy of spine discussed in detail with patient in regards to patients condition. Dec, Hip pain (ICD-10 - M25.559) Dec, Chronic pain (ICD-10 - G89.29) Dec, Other Above note writ ten by Amrit Vargas MA, Cardiograph Operator. Edited and approved by Dr. Ed Malhotra MD. [facility] Other 03-17-2022 Evaluation note* Encounter Date Diagnosis Assessment Notes Treatment Notes Treatment Clinical Notes Oct, Other low back pain (ICD-10 - M54.59) Oct, Spondylosis of lumbosacral region without myelopathy or radiculopathy (ICD-10 - M47.817) Patient's main complaint continues to be her back pain symptoms now with worsening radiating pain symptoms into bilateral groin and anterior thighs. Given her progressive symptoms and failed conservative treatment we will order an updated MRI of her lumbar spine for further evaluation. We will follow up with patient after MRI, sooner if needed. Prior to lumbar MRI being completed we will review x-rays of her bilateral hips. Anatomy of spine discussed in detail with patient in regard to patients condition. Oct, Chronic pain (ICD-10 - G89.29) Oct, Hip pain (ICD-10 - M25.559) Oct, Other Above note writ ten by Anthony Carcamo LPN, Cardiograph Operator. Edited and approved by Dr. Ed Malhotra MD. [facility] Other 02-23-2022 Evaluation note* Encounter Date Diagnosis Assessment Notes Treatment Notes Treatment Clinical Notes Oct, Other low back pain (ICD-10 - M54.59) Oct, Spondylosis of lumbosacral region without myelopathy or radiculopathy (ICD-10 - M47.817) Patient's main complaint continues to be her axial back pain symptoms. Patient shows notable pain consistent with facet region. She recently experienced temporary significant relief following lumbar facet joint injections. Based on recent positive results, as well as location of pain and exam findings, patient is a candidate for bilateral lumbar facet medial branch blocks which we will proceed with. It was further explained should this provide significant short term relief we will proceed with a subsequent radiofrequency ablation. Risks and benefits of procedure explained to patient; patient verbalizes understanding. Anatomy of spine discussed in detail with patient in regards to patients condition. Oct, Chronic pain (ICD-10 - G89.29) Oct, Other Above note writ ten by Amrit Vargas CMA, Cardiograph Operator. Edited and approved by Dr. Ed Malhotra MD. [facility] Other 01-13-2022 Evaluation note* Encounter Date Diagnosis Assessment Notes Treatment Notes Treatment Clinical Notes Sep, Other low back pain (ICD-10 - M54.59) Patient's main complaint is her axial back pain symptoms. She denies radicular symptoms. Patient shows notable pain consistent with facet region supported by recent imaging. Given these findings as well as physical exam we will plan to proceed with bilateral lumbar facet joint injections. Risks and benefits of procedure explained to patient; patient verbalizes understanding. Additionally, the patient agrees to fully understand Sep, Spondylosis of lumbosacral region without myelopathy or radiculopathy (ICD-10 - M47.817) Sep, Chronic pain (ICD-10 - G89.29) Sep, Other Above note written by Anthony Carcamo LPN, Cardiograph Operator. Edited and approved by Dr. Ed Malhotra MD. Medical decision making shows a new problem to me with further workup planned or suggested with the potential for extensive treatment options that were considered with the most applicable given this patient's situation as noted above. Treatment options considered include a combination of physical therapy approaches, pharmacologic management, and interventional procedures. Those most applicable to the patient were discussed at this time. Risk of complications and/or morbidity and mortality is high given that acute and chronic pain poses a threat to life and bodily function if undertreated, poorly treated or with failure to maintain adequate treatment and timely followup. Given the serious and fluctuating nature of pain with extensive consideration for whenever pain changes, there always remains the possibility of prolonged functional impairment requiring constant patient reassessment and high-level medical decision making. The amount and complexity of data reviewed is high given that patient labs, radiology reports, and other test were obtained, reviewed and summarized as applicable from the physician portal and/or outside medical records. Pertinent positive and negative findings were considered in medical decision-making. [facility] Other 06-01-2015 History general Narrative - Reported* Type Description Date Medical History Back pain Medical History Polina's disease Medical History asthma Surgical History tonsillectomy 2000 Hospitalization History back pain January [facility] Other 06-01-2015 History general Narrative - Reported* Type Description Date Medical History Back pain Medical History Polina's disease Medical History asthma Surgical History tonsillectomy 2000 Surgical History gastric bypass 2022 Hospitalization History back pain January [facility] Other Evaluation noteNo InformationNort [place] Other Evaluation noteNo assessment information available [facility] Work Phone: Evaluation note* Diagnosis Lateral epicondylitis of both elbows- Primary Lateral epicondylitis of elbow [facility] Left elbow pain- Primary Pain in joint, upper arm Lateral epicondylitis of both elbows Lateral epicondylitis of elbow Right elbow pain Pain in joint, upper arm Fibromyalgia Mylagia and myositis, unspecified Anxiety Anxiety state, unspecified Sleep apnea, unspecified type Cervicalgia [facility] Diagnosis Lateral epicondylitis of both elbows- Primary Lateral epicondylitis of elbow Left elbow pain Pain in joint, upper arm Right elbow pain Pain in joint, upper arm Fibromyalgia Mylagia and myositis, unspecified [facility] Diagnosis Lateral epicondylitis of both elbows- Primary Lateral epicondylitis of elbow Left elbow pain Pain in joint, upper arm [facility] Diagnosis Right elbow pain- Primary Pain in joint, upper arm Lateral epicondylitis of both elbows Lateral epicondylitis of elbow [facility] Right elbow pain- Primary Pain in joint, upper arm Lateral epicondylitis of right elbow Lateral epicondylitis of elbow [facility] Diagnosis Right elbow pain- Primary Pain in joint, upper arm Lateral epicondylitis of right elbow Lateral epicondylitis of elbow [facility] Diagnosis Right elbow pain- Primary Pain in joint, upper arm Lateral epicondylitis of right elbow Lateral epicondylitis of elbow [facility] Diagnosis Right elbow pain- Primary Pain in joint, upper arm Lateral epicondylitis of right elbow Lateral epicondylitis of elbow [facility] Diagnosis Lateral epicondylitis of right elbow- Primary Lateral epicondylitis of elbow [facility] Diagnosis Chronic low back pain with sciatica, sciatica laterality unspecified, unspecified back pain laterality- Primary Personal history of fibromyalgia Personal history of other musculoskeletal disorders Polina's disease Chronic lymphocytic thyroiditis Postsurgical malabsorption Drug-induced constipation Other constipation History of gastric [facility] Onset Date Resolution Status Sinusitis noneactive Sore throat noneactive Arthritis of lumbosacral spine acute Chronic pain acute Right hip pain noneactive [facility] Work Phone: Evaluation note* Diagnosis Migraine with aura and without status migrainosus, not intractable- Primary Malnutrition following gastrointestinal surgery Other and unspecified postsurgical nonabsorption History of gastric bypass Postsurgical malabsorption Abdominal pannus Localized adiposity [facility] Diagnosis Acne, unspecified acne type- Primary Chronic low back pain with sciatica, sciatica laterality unspecified, unspecified back pain laterality S/P bariatric surgery History of gastric bypass Encounter to establish care [facility] illness Narrative* Initial onset of obesity was after . Gained 106 pounds during first at 21 years old, lost weight around the age of 27, but then was diagnosed with Polina's Thyroiditis and has not been able to lose weight since. * Their goal for surgery is to be healthier and to lose weight. * The patient has tried multiple diets to lose weight including exercise and medications. Intermittent Fasting; Fasting for multiple days at a time to rest thyroid; herbalife; multiple rounds of adipex * The patient was most successful with medications and Most Lbs Lost 20. Adipex. Drinking calories, drinking a lot of whole milk to try to have GERD symptoms subside. She has had a maximum weight of 280 pounds and lowest weight ever of 110 pounds. * Severity of obesity is Class 3 which is a BMI of greater than or equal to 40. * The patient exercises daily 30 minutes per day Exercise includes walking. * Menstrual History: she reports an abnormal menses. heavy menses. * Procedure Preferred: a Janelle-en-Y gastric bypass. * Symptoms: The patient is experiencing daytime tiredness, decreased exercise tolerance, decreased range of motion, heartburn, poor self esteem, regurgitation and snoring. * Comorbidities: anxiety, back pain, depressed mood, esophageal reflux, metabolic syndrome, joint pain, knee pain, urinary incontinence, diabetes managed by oral medication and diabetes improved. * 36- year old female presenting today for Initial surgical consultation with bariatric surgery. Patient has approximate BMI of 41.46 with related comorbidities of GERD, Polina's thyroiditis, pre-diabetes, snoring, suspected sleep apnea, heavy menses, fibromyalgia, depression with anxiety, exercise induced asthma, and back spasms. * Was very active intrack, softball athletic, but at age 23. Delivered at 216 pounds. She was able to lose weight but again increased with next . 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 * Has had 5 kids, doesn't want muscle relaxers, wants healthy again. Tried adipex but coming off causes her to rebound eat. * Had a difficult 5th deliveray. Had post depression as baby was ill. * Goal for her is to get to 150 pounds. Also has reflux. She has diarrhea and lactose intolerant * Aunt had gastric bypass. Hasn't had endoscopy. [id number] Work Phone: InstructionsNot on filedocumented in this encounter [facility] SystemInstructionsNot on filedocumented in this encounter [facility] CenterReason for [facility] (narrative)* Diagnostic Procedure Only (Routine) - Authorized Specialty Diagnoses / Procedures Referred By Contac t Referred To Contact US IMAGING Diagnoses Lateral epicondylitis of both elbows Procedures US ELBOW LEFT US LMTD JOINT/OTH NONVASC XTR STRUX R-T W/[place] [address] [place] [address] Us Imaging Referral ID Status Reason Start Date Expiration Date Visits Requested Visits Authorized [id number] Authorized Auto-Generat ed Referral 09/17/2022 10/17/2023 1 1 [facility] for referral (narrative)* Consultation (Routine) - Pending Review Specialty Diagnoses / Procedures Referred By Contact Referred To Contact Plastic & Reconstructive Surgery Diagnoses History of gastric bypass Abdominal pannus Localized adiposity Nichol Barrett MD [address] [facility], [address] [address] Andrea Ornelas MD [address] [place] [address] Referral ID Status Reason Start Date Expiration Date Visits Requested Visits Authorized [id number] Pending Review Specialty Services Required 11/28/2023 11/27/2024 1 1 [facility] for visit NarrativeREVIEW MEDICATION MANAGEMENT Plant[facility] Other Summary Purpose Family History No Family History Records FoundUnknown Family Member Name Dates Details Family history of hyperlipid emia: Father, Sibling(V18.19, Z83.438) Status:Active Family history of type 2 indra betes mellitus: Father(V18.0, Z83.3) Status:Active Family history of hypertensi on: Mother, Father(V17.49, Z82.49) Status:Active Family history of cardiac di sorder: Maternal Grandmother(V17.49, Z82.49) Status:Active Family history of diabetes m ellitus: Maternal Grandmother(V18.0, Z83.3) Status:Active Unknown Family Member Name Dates Details Family history of hyperlipid emia: Father, Sibling(V18.19, Z83.438) Status:Active Family history of type 2 indra betes mellitus: Father(V18.0, Z83.3) Status:Active Family history of hypertensi on: Mother, Father(V17.49, Z82.49) Status:Active Family history of cardiac di sorder: Maternal Grandmother(V17.49, Z82.49) Status:Active Family history of diabetes m ellitus: Maternal Grandmother(V18.0, Z83.3) Status:Active Unknown Family Member Name Dates Details Family history of hyperlipid emia: Father, Sibling(V18.19, Z83.438) Status:Active Family history of type 2 indra betes mellitus: Father(V18.0, Z83.3) Status:Active Family history of hypertensi on: Mother, Father(V17.49, Z82.49) Status:Active Family history of cardiac di sorder: Maternal Grandmother(V17.49, Z82.49) Status:Active Family history of diabetes m ellitus: Maternal Grandmother(V18.0, Z83.3) Status:Active Unknown Family Member Name Dates Details Family history of hyperlipid emia: Father, Sibling(V18.19, Z83.438) Status:Active Family history of type 2 indra betes mellitus: Father(V18.0, Z83.3) Status:Active Family history of hypertensi on: Mother, Father(V17.49, Z82.49) Status:Active Family history of cardiac di sorder: Maternal Grandmother(V17.49, Z82.49) Status:Active Family history of diabetes m ellitus: Maternal Grandmother(V18.0, Z83.3) Status:Active Unknown Family Member Name Dates Details Family history of hyperlipid emia: Father, Sibling(V18.19, Z83.438) Status:Active Family history of hypertensi on: Mother, Father(V17.49, Z82.49) Status:Active Family history of type 2 indra betes mellitus: Father(V18.0, Z83.3) Status:Active Family history of cardiac di sorder: Maternal Grandmother(V17.49, Z82.49) Status:Active Family history of diabetes m ellitus: Maternal Grandmother(V18.0, Z83.3) Status:Active Unknown Family Member Name Dates Details Family history of hyperlipid emia: Father, Sibling(V18.19, Z83.438) Status:Active Family history of type 2 indra betes mellitus: Father(V18.0, Z83.3) Status:Active Family history of hypertensi on: Mother, Father(V17.49, Z82.49) Status:Active Family history of cardiac di sorder: Maternal Grandmother(V17.49, Z82.49) Status:Active Family history of diabetes m ellitus: Maternal Grandmother(V18.0, Z83.3) Status:Active Unknown Family Member Name Dates Details Family history of hyperlipid emia: Father, Sibling(V18.19, Z83.438) Status:Active Family history of type 2 indra betes mellitus: Father(V18.0, Z83.3) Status:Active Family history of hypertensi on: Mother, Father(V17.49, Z82.49) Status:Active Family history of cardiac di sorder: Maternal Grandmother(V17.49, Z82.49) Status:Active Family history of diabetes m ellitus: Maternal Grandmother(V18.0, Z83.3) Status:Active Unknown Family Member Name Dates Details Family history of hyperlipid emia: Father, Sibling(V18.19, Z83.438) Status:Active Family history of type 2 indra betes mellitus: Father(V18.0, Z83.3) Status:Active Family history of hypertensi on: Mother, Father(V17.49, Z82.49) Status:Active Family history of cardiac di sorder: Maternal Grandmother(V17.49, Z82.49) Status:Active Family history of diabetes m ellitus: Maternal Grandmother(V18.0, Z83.3) Status:Active Unknown Family Member Name Dates Details Family history of diabetes m ellitus: Maternal Grandmother(V18.0, Z83.3) Status:Active Family history of cardiac di sorder: Maternal Grandmother(V17.49, Z82.49) Status:Active Family history of hypertensi on: Mother, Father(V17.49, Z82.49) Status:Active Family history of type 2 indra betes mellitus: Father(V18.0, Z83.3) Status:Active Family history of hyperlipid emia: Father, Sibling(V18.19, Z83.438) Status:Active Unknown Family Member Name Dates Details Family history of cardiac di sorder: Maternal Grandmother(V17.49, Z82.49) Status:Active Family history of diabetes m ellitus: Maternal Grandmother(V18.0, Z83.3) Status:Active Family history of hypertensi on: Mother, Father(V17.49, Z82.49) Status:Active Family history of type 2 indra betes mellitus: Father(V18.0, Z83.3) Status:Active Family history of hyperlipid emia: Father, Sibling(V18.19, Z83.438) Status:Active Unknown Family Member Name Dates Details Family history of diabetes m ellitus: Maternal Grandmother(V18.0, Z83.3) Status:Active Family history of cardiac di sorder: Maternal Grandmother(V17.49, Z82.49) Status:Active Family history of hypertensi on: Mother, Father(V17.49, Z82.49) Status:Active Family history of type 2 indra betes mellitus: Father(V18.0, Z83.3) Status:Active Family history of hyperlipid emia: Father, Sibling(V18.19, Z83.438) Status:Active Relationship Condition Age at Onset Recorded Date/T rafael father Diabetes mellitus Unknown Heart disease Unknown Not Specified Heart disease Unknown Sarcoma Unknown Relationship Condition Age at Onset Recorded Date/T rafael father Diabetes mellitus Unknown Heart disease Unknown Not Specified Heart disease Unknown Sarcoma Unknown father Heart disease Unknown Hypertension Unknown Diabetes mellitus Unknown Not Specified Hypertension Unknown Advance Directives No Advanced Directives Records Found Advance Directive Response Recorded Date/ Time Advance Directives No September 18, 2021 8:30am Latest Code Status on File Code Status Date Activated Date Inactivated Comments Full Code 11/28/2022 9:55 AM 11/28/2022 10:32 PM Latest Code Status on File Code Status Date Activated Date Inactivated Comments Full Code 11/28/2022 9:55 AM 11/28/2022 10:32 PM Chief Complaint * A telephone visit (audio only) between the patient (at the originating site) and the provider (at the distant site) was utilized to provide this telehealth service. * obesity * initial nutrition evaluation * The patient is being seen initial visit. * An interactive audio and video telecommunication system which permits real time communications between the patient (at the originating site) and provider (at the distant site) was utilized to providethis telehealth service. * Verbal consent was requested and obtained from MICHELLE RIVERA on this date, 04/27/2021 08:30 AM , for atelehealth visit. * A telephone visit (audio only) between the patient (at the originating site) and the provider (at the distant site) was utilized to provide this telehealth service. * obesity * nutrition follow-up pre-op * AccompaniedBy_UH: * PsychChiefComplaintFreeTextNoteForm_UH: * An interactive audio and video telecommunication system which permits real time communications between the patient (at the originating site) and provider (at the distant site) was utilized to providethis telehealth service. * Verbal consent was requested and obtained from MICHELLE RIVERA on this date, 07/11/2021 10:00 AM , for atelehealth visit. * Required pre-bariatric surgery evaluation * AccompaniedBy_UH: * PsychChiefComplaintFreeTextNoteForm_UH: * An interactive audio and video telecommunication system which permits real time communications between the patient (at the originating site) and provider (at the distant site) was utilized to providethis telehealth service. * Verbal consent was requested and obtained from MICHELLE RIVERA on this date, 07/11/2021 10:00 AM , for atelehealth visit. * Required pre-bariatric surgery evaluation * A telephone visit (audio only) between the patient (at the originating site) and the provider (at the distant site) was utilized to provide this telehealth service. * obesity * nutrition follow-up pre-op Chief Complaint and Reason for Visit Chief Complaint Back Pain Back Pain Chief Complaint Sore throat, congest ion back pain M25.551 - Pain in right hip M47.817 - Spondylosis Reason for Visit Sinusitis Sore throat Arthritis of lumbosacral spine Chronic pain Right hip pain Reason for Referral Specialty Diagnoses / Procedures Referred By Jorge mcduffie Referred To Contact [facility] Diagnoses Right elbow pain Lateral epicondylitis of right elbow Procedures CONSULT TO REPLANTER OCCUPATIONAL THERAPY EVNY HIGH COMPLEX [address] [place] [address] [place] [address] [facility] [place] [address] [place] [address] Referral ID Status Reason Start Date Expiration Date Visits Requested Visits Authorized [id number] Authorized Auto-Generat ed Referral 09/02/2022 09/01/2023 99 99 Specialty Diagnoses / Procedures Referred By Jorge mcduffie Referred To Contact MR IMAGING Diagnoses Lateral epicondylitis of both elbows Left elbow pain Right elbow pain Fibromyalgia Anxiety Sleep apnea, unspecified type Cervicalgia Procedures MRI ELBOW WO IVCON LT MRI ANY JT UPPER EXTREMITY W/[place] [address] [place] [address] Mr Imaging Referral ID Status Reason Start Date Expiration Date Visits Requested Visits Authorized [id number] Pending Review Auto-Generat ed Referral 2 09/19/2023 1 1 Specialty Diagnoses / Procedures Referred By Contac t Referred To Contact MR IMAGING Diagnoses Lateral epicondylitis of both elbows Left elbow pain Right elbow pain Fibromyalgia Anxiety Sleep apnea, unspecified type Cervicalgia Procedures MRI ELBOW WO IVCON RT MRI ANY JT UPPER EXTREMITY W/[place] [address] [place] [address] Mr Imaging Referral ID Status Reason Start Date Expiration Date Visits Requested Visits Authorized [id number] Pending Review Auto-Generat ed Referral 2 09/19/2023 1 1 Specialty Diagnoses / Procedures Referred By Contac t Referred To Contact [facility] Diagnoses Lateral epicondylitis of both elbows Left elbow pain Right elbow pain Fibromyalgia Anxiety Sleep apnea, unspecified type Cervicalgia Procedures CONSULT TO PHYSICAL THERAPY PHYSICAL THERAPY EVALUATION HIGH COMPLEX [address] [place] [address] [place] [address] [facility] [place] [address] [place] [address] Referral ID Status Reason Start Date Expiration Date Visits Requested Visits Authorized [id number] Pending Review Auto-Generat ed Referral 2 08/20/2023 1 1 Specialty Diagnoses / Procedures Referred By Contac t Referred To Contact XR IMAGING Diagnoses Lateral epicondylitis of both elbows Left elbow pain Right elbow pain Fibromyalgia Anxiety Sleep apnea, unspecified type Cervicalgia Procedures XR CERV OTHER 4V AP/LAT/OBL RADEX SPINE CERVICAL 4 [place] 5 [place] [address] [place] [address] Xr Imaging Referral ID Status Reason Start Date Expiration Date V isits Requested Visits Authorized [id number] Closed Auto-Generate d Referral 08/20/2022 09/19/2023 1 1 Specialty Diagnoses / Procedures Referred By Contac t Referred To Contact Orthopedics Diagnoses Lateral epicondylitis of both elbows Procedures CONSULT TO ORTHOPAEDICS OFFICE/OUTPATIENT [facility] 60-74 MINUTES Libia Gomez DO [facility] [address] [place] [address] Referral ID Status Reason Start Date Expiration Date Visits Requested Visits Authorized [id number] Authorized PCP Requested Referral 2 07/20/2023 1 1 Medications Administered Section Inactive Administered Medications - up to 3 most recent administrations Medication Order MAR Action Action Date Dose Rate Site lidocaine (PF) 10 mg/mL (1 %) 2 mL injection (XYLOCAINE) 2 mL, Injection - FOR ORTHO USE ONLY, ONE TIME INJECTION, 1 dose, Starting on Nuris 12/20/22 at 1251, Until Nuris 12/20/22 at 1251 Given 12/20/2022 12:51 PM EDT 2 mL Elbow, Right Inactive Administered Medications - up to 3 most recent administrations Medication Order MAR Action Action Date Dose Rate Site lidocaine 1%-EPINEPHrine 1:100,000 2 mL injection 2 mL, Injection - FOR ORTHO USE ONLY, ONE TIME INJECTION, 1 dose, Starting on Sat05/03/23 at 1016, Until Sat05/03/23 at 1016 Given 05/03/2023 10:16 AM EDT 2 mL ROPivacaine (PF) 5 mg/mL (0.5 %) 4 mL injection (NAROPIN) 4 mL, Injection - FOR ORTHO USE ONLY, ONE TIME INJECTION, 1 dose, Starting on Sat05/03/23 at 1016, Until Sat05/03/23 at 1016 Given 05/03/2023 10:16 AM EDT 4 mL Additional Source Comments INFORMATION SOURCE (unrecogn ized section and content) DATE CREATED AUTHOR 03/06/2018 [facility] DATE CREATED AUTHOR AUTHOR'S ORGANIZ ATION 08/29/2021 [facility] DATE CREATED AUTHOR AUTHOR'S ORGANIZ ATION 10/26/2021 [facility] DATE CREATED AUTHOR AUTHOR'S ORGANIZ ATION 08/24/2022 [facility] DATE CREATED AUTHOR AUTHOR'S ORGANIZ ATION 11/01/2022 [facility] DATE CREATED AUTHOR AUTHOR'S ORGANIZ ATION 12/06/2022 [facility] DATE CREATED AUTHOR AUTHOR'S ORGANIZ ATION 09/07/2023 [facility] DATE CREATED AUTHOR AUTHOR'S ORGANIZ ATION 11/20/2023 [facility] DATE CREATED AUTHOR AUTHOR'S ORGANIZ ATION 11/27/2023 [facility] DATE CREATED AUTHOR AUTHOR'S ORGANIZ ATION 11/29/2023 [facility] DATE CREATED AUTHOR AUTHOR'S ORGANIZ ATION 11/29/2023 [facility] DATE CREATED AUTHOR AUTHOR'S ORGANIZ ATION 01/18/2024 [facility] EPIC REASON FOR VISIT (unrecogniz ed section and content) Reason Comments New Reason Comments New Specialty Diagnoses / Procedures Referred By Contac t Referred To Contact Orthopedics Diagnoses Lateral epicondylitis of both elbows Procedures CONSULT TO ORTHOPAEDICS OFFICE/OUTPATIENT NEW HIGH MDM 60-74 MINUTES Libia Gomez, DO [facility] [address] [place] [address] Referral ID Status Reason Start Date Expiration Date V isits Requested Visits Authorized [id number] Closed PCP Requested Referral 07/20/2022 07/20/2023 1 1 Reason Comments Radiology MRI Reason Comments Follow Up Reason Comments Appointment Reason Comments Established Patient Specialty Diagnoses / Procedures Referred By Contac t Referred To Contact ORTHOPAEDIC SURGERY Diagnoses Lateral epicondylitis, right elbow Procedures NJX PLTLT PLASMA W/IMG HARVEST/PREPARATION PRP INJECTION - [place] [address] [place] [address] [place] [address] [place] [address] Referral ID Status Reason Start Date Expiration Date V isits Requested Visits Authorized [id number] Closed Financial Clearance Required - Self Pay Patient Cleared - True Self-Pay required payment collected 12/06/2022 02/04/2023 1 1 Reason Comments Orders Reason Comments Established Patient Reason Comments OT EVAL Specialty Diagnoses / Procedures Referred By Contac t Referred To Contact [facility] Diagnoses Right elbow pain Lateral epicondylitis of right elbow Procedures CONSULT TO REPLANTER OCCUPATIONAL THERAPY EVAL HIGH COMPLEX [address] [place] [address] [place] [address] [facility] [place] [address] [place] [address] Referral ID Status Reason Start Date Expiration Date Visits Requested Visits Authorized [id number] Authorized Auto-Generat ed Referral 09/02/2022 09/01/2023 99 99 Reason Comments Occupational Therapy Specialty Diagnoses / Procedures Referred By Jorge mcduffie Referred To Contact [facility] Diagnoses Right elbow pain Lateral epicondylitis of right elbow Procedures CONSULT TO REPLANTER OCCUPATIONAL THERAPY EVAL HIGH COMPLEX [address] [place] [address] [place] [address] [facility] [place] [address] [place] [address] Specialty Diagnoses / Procedures Referred By Jorge mcduffie Referred To Contact Orthopedics / ORTHOPAEDIC SURGERY Diagnoses Lateral epicondylitis, right elbow Pain in right elbow LATERAL EPICONDYLITIS R ELBOW Procedures TENOTOMY ELBOW LATERAL/MEDIAL PERCUTANEOUS US GUIDANCE NEEDLE PLACEMENT IMG S&I TENOTOMY WITH US [place]IDE [place] [address] [place] [address] [place] [address] [place] [address] Referral ID Status Reason Start Date Expiration Date Visits Re quested Visits Authorized [id number] Closed 05/03/2023 09/01/2023 1 1 Reason Comments Follow-up Reason Comments Post-op 1 year RYGB; itchy f rom loose skin Care Teams (unrecognized sec tion and content) Team Status: Active Member Role Status Dates Vijaya Pinto APRN NP-Jacinto Primary Care Provider Active Team Status: Inactive Member Role Status Dates Vijaya Pinto APRN NP-Jacinto Primary Care Provider Active Start: November 11, 2023 End: November 11, 2023 KENYATTA Mendez Attending Provider Active S tart: November 11, 2023 End: November 11, 2023 Team Status: Inactive Member Role Status Dates DYLAN John Primary Care Provider Active Start: November 14, 2023 End: November 14, 2023 Ed Malhotra MD Attending Provider Active Sta rt: November 14, 2023 End: November 14, 2023 Team Status: Inactive Member Role Status Dates Vijaya A Millie , DREDGE WORKER LIFESTYLE BLOCK FARMER-C Primary Care Provider Active Ed Malhotra MD Attending Provider Active 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 Start Date End Date Abundio Galdamez, DO [address] [place] [address] Referring Orthopedics 05/31/22 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 Start Date End Date Abundio Galdamez, DO [address] [place] [address] Referring Orthopedics 05/31/22 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 Start Date End Date Abundio Galdamez, DO [address] [place] [address] Referring Orthopedics 05/31/22 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 Start Date End Date Abundio Galdamez, DO [address] [place] [address] Referring Orthopedics 05/31/22 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 Start Date End Date Abundio Galdamez, DO [address] [place] [address] Referring Orthopedics 05/31/22 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 Start Date End Date Abundio Galdamez, DO [address] [place] [address] Referring Orthopedics 05/31/22 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 Start Date End Date Abundio Galdamez, DO [address] [place] [address] Referring Orthopedics 05/31/22 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 Start Date End Date Abundio Galdamez, DO [address] [place] [address] Referring Orthopedics 05/31/22 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 Start Date End Date Abundio Galdamez, DO [address] [place] [address] Referring Orthopedics 05/31/22 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 Start Date End Date Abundio Galdamez DO [address] [place] [address] Referring Orthopedics 05/31/22 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 Start Date End Date Abundio Galdamez DO [address] [place] [address] Referring Orthopedics 05/31/22 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 Start Date End Date Abundio Galdamez DO [address] [place] [address] Referring Orthopedics 05/31/22 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 Start Date End Date Abundio Galdamez DO [address] [place], [facility] Referring Orthopedics 05/31/22 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 Start Date End Date Abundio Galdamez DO [address] [place] [address] Referring Orthopedics 05/31/22 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 Start Date End Date Vijaya Pinto APRN-ACCORDION REPAIRER [address], [place] [facility] [address] PCP - General Family Medicine 11/03/20 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 Start Date End Date Vijaya Pinto APRN-ACCORDION REPAIRER [address], [place] [address] PCP - General Family Medicine 11/03/20 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 Start Date End Date Vijaya Pinto, DREDGE WORKER-ACCORDION REPAIRER [address], [place] [address] PCP - General Family Medicine 11/03/20 Source Comments (unrecognize d section and content) In the event this informatio n is protected by the Federal Confidentiality of Alcohol and Drug Abuse Patient Records regulations: The Federal rules restrict any use of the information to criminally investigate or prosecute any alcohol or drug abuse patient.[facility] Hospital[facility] the event this information is protected by the Federal Confidentiality of Alcohol and Drug Abuse Patient Records regulations: The Federal rules restrict any use of the information to criminally investigate or prosecute any alcohol or drug abuse patient.[facility] HospitalIn the event this information is protected by the Federal Confidentiality of Alcohol and Drug Abuse Patient Records regulations: The Federal rules restrict any use of the information to criminally investigate or prosecute any alcohol or drug abuse patient.[facility] HospitalIn the event this information is protected by the Federal Confidentiality of Alcohol and Drug Abuse Patient Records regulations: The Federal rules restrict any use of the information to criminally investigate or prosecute any alcohol or drug abuse patient.[facility] HospitalIn the event this information is protected by the Federal Confidentiality of Alcohol and Drug Abuse Patient Records regulations: The Federal rules restrict any use of the information to criminally investigate or prosecute any alcohol or drug abuse patient.[facility] HospitalIn the event this information is protected by the Federal Confidentiality of Alcohol and Drug Abuse Patient Records regulations: The Federal rules restrict any use of the information to criminally investigate or prosecute any alcohol or drug abuse patient.[facility] HospitalIn the event this information is protected by the Federal Confidentiality of Alcohol and Drug Abuse Patient Records regulations: The Federal rules restrict any use of the information to criminally investigate or prosecute any alcohol or drug abuse patient.[facility] HospitalIn the event this information is protected by the Federal Confidentiality of Alcohol and Drug Abuse Patient Records regulations: The Federal rules restrict any use of the information to criminally investigate or prosecute any alcohol or drug abuse patient.[facility] HospitalIn the event this information is protected by the Federal Confidentiality of Alcohol and Drug Abuse Patient Records regulations: The Federal rules restrict any use of the information to criminally investigate or prosecute any alcohol or drug abuse patient.[facility] HospitalIn the event this information is protected by the Federal Confidentiality of Alcohol and Drug Abuse Patient Records regulations: The Federal rules restrict any use of the information to criminally investigate or prosecute any alcohol or drug abuse patient.[facility] HospitalIn the event this information is protected by the Federal Confidentiality of Alcohol and Drug Abuse Patient Records regulations: The Federal rules restrict any use of the information to criminally investigate or prosecute any alcohol or drug abuse patient.[facility] HospitalIn the event this information is protected by the Federal Confidentiality of Alcohol and Drug Abuse Patient Records regulations: The Federal rules restrict any use of the information to criminally investigate or prosecute any alcohol or drug abuse patient.[facility] HospitalIn the event this information is protected by the Federal Confidentiality of Alcohol and Drug Abuse Patient Records regulations: The Federal rules restrict any use of the information to criminally investigate or prosecute any alcohol or drug abuse patient.[facility] HospitalIn the event this information is protected by the Federal Confidentiality of Alcohol and Drug Abuse Patient Records regulations: The Federal rules restrict any use of the information to criminally investigate or prosecute any alcohol or drug abuse patient.[facility] HospitalIn the event this information is protected by the Federal Confidentiality of Alcohol and Drug Abuse Patient Records regulations: The Federal rules restrict any use of the information to criminally investigate or prosecute any alcohol or drug abuse patient.[facility] HospitalIn the event this information is protected by the Federal Confidentiality of Alcohol and Drug Abuse Patient Records regulations: The Federal rules restrict any use of the information to criminally investigate or prosecute any alcohol or drug abuse patient.[facility] HospitalIn the event this information is protected by the Federal Confidentiality of Alcohol and Drug Abuse Patient Records regulations: The Federal rules restrict any use of the information to criminally investigate or prosecute any alcohol or drug abuse patient.[facility] Goals (unrecognized section and content) Goals may be documented in a n alternate section FOR RECORDS PERTAINING TO PATIENTS WHO ARE OR HAVE BEEN ENROLLED IN A CHEMICAL DEPENDENCY/SUBSTANCEABUSE PROGRAM, SOME INFORMATION MAY BE OMITTED. This clinical summary was aggregated from multiple sources. Caution should be exercised in using it in the provision of clinical care. This summary normalizes information from multiple sources, and as a consequence, information in this document may materially change the coding, format and clinical context of patient data. In addition, data may be omitted in some cases. CLINICAL DECISIONS SHOULD BE BASED ON THE PRIMARY CLINICAL RECORDS. [facility] [employer] [facility]. provides no warranty or guarantee of the accuracy or completeness of information in this document.
[2024-05-14 15:34] LABS: Basophils Percent Auto 0.6 % (0.2-2.0); Eosinophils Absolute Auto 0.1 10^3/uL (0.0-0.7); Eosinophils Percent Auto 1.2 % (0.9-7.0); Hematocrit 34.7 % (36.0-48.0); Hemoglobin 11.5 g/dL (12.0-16.0); Immature Granulocytes Abs Auto 0.01 10^3/uL (0.00-0.03); Immature Granulocytes Pct Auto 0.1 % (0.0-0.5); Lymphocytes Absolute Auto 2.2 10^3/uL (1.2-3.8); Lymphocytes Percent Auto 31.8 % (20.5-60.0); Mean Corpuscular HGB Conc 33.1 g/dL (29.9-35.2); Mean Corpuscular Hemoglobin 30.7 pg (26.7-34.0); Mean Corpuscular Volume 92.8 fL (81.0-99.0); Mean Platelet Volume 9.5 fL (9.5-13.5); Monocytes Absolute Auto 0.3 10^3/uL (0.3-0.8); Neutrophils Absolute Auto 4.2 10^3/uL (1.4-6.5); Neutrophils Percent Auto 61.3 % (43.0-75.0); Platelet Count 331 10^3/uL (150-450); Red Blood Count 3.74 10^6/uL (4.20-5.40); Red Cell Distribution Width 12.2 % (11.0-15.0); White Blood Count 6.9 10^3/uL (4.0-11.0)
[2024-05-14 15:42] LABS: Estimated Average Glucose 105 mg/dL; Glycohemoglobin A1C 5.3 % (4.5-6.2)
[2024-05-14 16:22] LABS: Free T4 0.78 ng/dL (0.76-1.46)
[2024-05-14 16:25] LABS: Thyroid Stimulating Hormone 1.061 uIU/mL (0.358-3.740)
[2024-05-14 16:33] LABS: HCG Quantitative <1 mIU/mL
[2024-05-15 04:08] LABS: FSH 7.3 mIU/mL (.)
[2024-05-19 19:08] LABS: DHEA, Serum 118 ng/dL (31-701)
== END 2024-05-14 15:01 | disposition home or self-care (01) ==
LOC: LAB 15:04
PROVIDERS: Visit Provider Obstetrics & Gynecology
DX: N92.0 Excessive and frequent menstruation with regular cycle (principal)
CPT/HCPCS: 36415; 82626; 82627; 83001; 83002; 83036; 84439; 84443; 84702; 85025

== ENCOUNTER 2024-05-28 08:25 | Outpatient (REF) | payer OTHER, SELFPAY | END 2024-05-28 08:26 | disposition home or self-care (01) | LOC: LAB 08:25 | PROVIDERS: Visit Provider Obstetrics & Gynecology | DX: N92.0 Excessive and frequent menstruation with regular cycle (principal) | CPT/HCPCS: 88305 ==

== ENCOUNTER 2024-07-06 22:14 | Outpatient (REF) | payer OTHER, SELFPAY ==
--- OUTSIDE RECORDS SUMMARY | 2024-07-06 22:19 | XMS_ITS | CCD ---
Author Organization [facility] Care Team Providers Care Golf Teacher Name Role Phone None, No PCP Unavailable Unavailable Ed Malhotra Unavailable Abundio Galdamez Unavailable Delia Allen Unavailable DYLAN Pinto Primary Care Provider MD Ed Malhotra Attending Provider [phone] Abundio Galdamez DO Unavailable Abundio Galdamez DO Unavailable [phone] GENIN, FRANK A Referring Unavailable GENIN, FRANK A Referring Unavailable ED MALHOTRA Attending Unavailable VIJAYA PINTO Primary Care Unavailable ED MALHOTRA Admitting Unavailable MISC, DR UPTON Attending Unavailable VIJAYA PINTO Primary Care Unavailable MISC, DR UPTON Admitting Unavailable MISC, DR UPTON Consulting Unavailable STEVE NEGRONSON A Attending Unavailable Vijaya Sheth Primary Care Provi estephanie GENIN, FRANK A Referring Unavailable GENIN, FRANK A Attending Unavailable GENIN, FRANK A Attending Unavailable GENIN, FRANK A Attending Unavailable GENIN, FRANK A Referring Unavailable GENIN, FRANK A Referring Unavailable GENIN, FRANK A Referring Unavailable MARCELINA MCMANUS Attending Unavailable DIVENCENZO, MARLITA Attending Unavailable GENIN, FRANK A Referring Unavailable DIVENCENZO, MARLITA Attending Unavailable GENIN, FRAKN A Referring Unavailable DIVENCENZO, MARLITA Attending Unavailable GENIN, FRANK A Referring Unavailable GENIN, FRANK A Attending Unavailable GENIN, FRANK A Referring Unavailable GENIN, FRANK A Referring Unavailable GENIN, FRANK A Attending Unavailable DYLAN Pinto Vijaya A Primary Care Provider MD Ed Malhotra Attending Provider RIVKA KOENIG Referring Unavailable MILLIE, VIJAYA A Primary Care Unavailable SANDRA AMY M Referring Unavailable MILLIE, VIJAYA A Primary Care Unavailable NICHOL BARRETT Attending Unavailable MILLIE, VIJAYA A Referring Unavailable MILLIE, VIJAYA A Primary Care Unavailable KOENIGNELIARA Attending Unavailable MILLIE, VIJAYA A Referring Unavailable MILLIE, VIJAYA A Primary Care Unavailable KOENIG, RIVKA Attending Unavailable MILLIE, VIJAYA A Referring Unavailable MILLIE, VIJAYA A Primary Care Unavailable MALI MALHOTRA Attending Unavailable KIRBY HEREDIA Attending Unavailable Abundio Galdamez DO Unavailable [phone] Millie, Vijaya A Primary Care Unavailable Kirby Heredia Admitting Unavailable Kirby Heredia Attending Unavailable Ed Malhotra Attending Unavailable Millie, Vijaya A Primary Care Unavailable Ed Malhotra Admitting Unavailable Allergies Allergy Classification Reported Allergen(s) Allergy Type Date of Onset Reaction(s) Facility (14 sources) Penicillins; Translations: [Penicillins] Allergy to drug (finding) 08-20-20 Edema, Itching [facility] Other [facility] (11 sources) Sulfonamides (Antibiotic); Translations: [Sulfa Drugs] Allergy to drug (finding) Itching, Edema [facility] Work Phone: (20 sources) Penicillin G; Translations: [PENICILLIN G] Drug Allergy 06-16-20 18 [facility] (20 sources) Sulfacetamide / Sulfur Drug Allergy [facility] Other (3 sources) Sulfacetamide; Translations: [sulfacetamide] Drug Allergy 03-13-20 22 [facility] (3 sources) Sulfur; Translations: [sulfur] Drug Allergy 03-13-20 22 [facility] (18 sources) Penicillins Drug Allergy 08-20-20 22 [facility] Work Phone: (20 sources) Sulfonamides (Antibiotic); Translations: [SULFA (SULFONAMIDE ANTIBIOTICS)] Drug Allergy 06-16-20 18 Hives, Swelling [facility] Work Phone: (1 source) diphenhydrAMINE Drug Allergy 03-10-[address] [facility] Repository (1 source) Penicillins Drug allergy (disorder) 03-10-[address] [facility] (1 source) Sulfonamides (Antibiotic) Drug allergy (disorder) 03-10-[address] [facility] Repository (6 sources) Sulfamethoxazole / Trimethoprim; Translations: [SULFAMETHOXAZOLE-TR IMETHOPRIM] Drug Allergy 06-16-20 18 Hives, Swelling [facility] (1 source) Penicillin Drug Allergy 11-14-19 24 [facility] Repository Medications Current Medications Medication Drug [...] topical gel (1 source) Lincosamide Antibacterial Start: clindamycin-benzoyl peroxide (BENZACLIN) gel Apply 1 Application [...] 60 Days Active pregabalin (20 sources) Start: 024 Pregabalin Active MG PO November 14, 2023 [...] Take 100 mg by mouth twice daily. Active take 1 capsule by [facility] every twelve hours Lyrica 200 MG 1 capsule Orally Twice a day for 30 days Active Comment on above: Take 100 mg by mouth twice daily. (9 sources) Active Iafclgvv-Fzg-Dt-Fa () 1 mg Tablet (2 sources) Start: 04-17-2022 take 1 tablet by mouth once daily Udqmfzrl-Wyt-Hb-Fa () 1 mg Tablet Active 1 TAB PO Daily April 17, 2022 12:00am vit 10-iron fum-folic 65-1 mg tablet (3 sources) Start: 02-28-2023 take 1 tablet by mouth in the morning vit 10-iron fum-folic 65-1 mg tablet Indications: Postsurgical malabsorption , Malnutrition following gastrointestinal surgery , History of gastric bypass Take 1 tablet by mouth in the morning. 90 tablet 3 02/28/2023 Active vits 4/iron fum/folic (-H ORAL) (18 sources) vits 4/ iron fum/folic (-H ORAL) Take by mouth once daily. Active vits 4/ iron fum/folic (-H ORAL) Take by mouth once daily. 0 Active Comment on above: Take by mouth once d aily. syringe with needle (BD LUER-PAYAL SYRINGE) 3 mL 25 x 1 1/2 syringe (3 sources) Start: 3 syringe with needle (BD LUER-PAYAL SYRINGE) 3 mL 25 x 1 1/2 syringe Indications: Malnutrition following gastrointestinal surgery , History of gastric bypass , Postsurgical malabsorption , Vitamin B12 deficiency 1 SYRG by miscellaneous route every 30 (thirty) days. 3 each 1 05/30/2023 Active tiZANidine 4 mg oral tablet (5 sources) Central alpha-2 Adrenergic Agonist Start: 4 take 4 mg by mouth twice daily [...] Drug Class(es) Dates Sig (Normalized) Sig (Original) [id number] 200 actuat albuterol 0.09 mg/actuat metered dose [...] 20-Apr-2021 Active take 1 tablet by royal th every twenty-four hours Cyclobenzaprine HCl 10 MG [...] pack Discontinued 0 PO per package directions November 11, 2023 12:00am November 14, 2023 [...] Start: 03-30-2021 take 1 capsule by mo [facility] once daily Omeprazole 40 MG 1 capsule 30 minutes before morning meal Orally Once a day Mar, Active Comment on above: Take 40 mg by mouth once daily. 20 ml ropivacaine hydrochloride 5 mg/ml injection [...] surveillance] Onset: 02-20-2021 Resolved: 10-02-2021 10-02-2021 Episodic Anxiety disorders (19 sources) Mixed anxiety and depressive disorder; Translations: [Dysthymic disorder] Onset: 11-03-2020 Resolved: 03-04-2023 Chronic Asthma (11 sources) Exercise-induced asthma; Translations: [Exercise [...] unspecified site] Episodic Other connective tissue disease (15 sources) Fibromyalgia; Translations: [Myalgia and myositis, unspecified] Episodic Other connective tissue disease (11 sources) Disease suspected; Translations: [Other symptoms involving nervous and musculoskeletal systems] Episodic Other connective tissue disease (7 sources) Lateral epicondylitis of bilateral humerus; Translations: [...] unspecified hip] Episodic Other non-traumatic joint disorders (20 sources) Pain in elbow; Translations: [Pain in left elbow] Onset: 02-22-2023 Episodic Other nutritional; endocrine; and metabolic disorders [...] sinusitis (chronic)] 11-11-2023 Chronic Residual codes; unclassified (6 sources) Sleep apnea; Translations: [Sleep apnea, unspecified] Onset: 02-15-2022 Chronic Residual codes; unclassified (2 sources) Sleep apnea, unspecified; Translations: [Sleep apnea, unspecified type] Onset: 08-20-2022 Chronic Residual codes; unclassified (1 source) Other sleep apnea; Translations: [OTHER SLEEP APNEA] Onset: 05-08-2022 Chronic Residual codes; unclassified (1 source) Pain; Translations: [Pain, unspecified] 07-20-2022 Episodic Spondylosis; intervertebral disc disorders; other back problems (20 sources) Intervertebral disc prolapse; Translations: [Displacement of intervertebral disc, site unspecified, without myelopathy] Onset: 09-14-2021 Resolved: 04-24-2022 Chronic Spondylosis; intervertebral disc disorders; other back problems (20 sources) Spasm of back muscles; Translations: [Other symptoms referable to back] Onset: 08-11-2018 Resolved: 03-19-2022 Episodic Thyroid disorders (20 sources) Polina thyroiditis; Translations: [...] Classification Problem Date Documented Da te Episodic/Chronic Esophageal disorders (14 sources) Gastroesophageal reflux disease; [...] Resolved: 2 Episodic Other non-traumatic joint disorders (2 sources) Pain in right elbow; Translations: [Right elbow pain] Onset: 2 Episodic Other non-traumatic joint disorders (2 sources) Pain in right hip; Translations: [Pain in joint, pelvic region and thigh] Onset: 4 11-14-2023 Episodic Other nutritional; endocrine; and metabolic [...] not elsewhere classified] Onset: 3 12-10-2022 Episodic Sprains and strains (3 sources) Sprain [...] Test Name Value Interpretation Reference Range Facility [facility] 05-28-2024 L Specimen: [id number] Received: 05/29/24 Status: CALLY Joy Num: [id number] Spec Type: Surgical Subm Dr: Kirby Heredia Tissues: A Endometrium - Biopsy (EMBX) Procedures: HE/2, Gross/Micro L4 Age/ Patient Sex Location Account Attending Physician Michelle Carter 39/F LABELL [id number] Kirby Heredia SPEC NUM: [id number] RECD: 05/29/24 STATUS: CALLY JOY NUM: [id number] HUMBLE: 05/28/24- SUBM DR: Kirby Heredia ENTERED: 05/29/24-[address] [facility] [address]: Moon,Lab SPEC TYPE: Surgical DEPT: JANETTE VALLE ENTERED BY: [id number] RECV BY: [id number] ORDERED: HE/2, Gross/Micro L4 ORDERED: HE2, Gross/Micro L4 Pathological Diagnosis Endometrial biopsy: -Multiple small strips of slightly desynchronized and relatively inactive endometrium, including patchy mild tubal metaplasia per weakly proliferative activity, and the occasionally randomly admixed small mild secretory type glands, otherwise without any hyperplasia or atypia identified -Incidentally small admixed portions of the desquamated ectocervical squamous epithelial cells without dysplasia Clinical Information Menorrhagia N92.0 Gross Description The specimen is received in formalin with the patient's name and endometrial biopsy and consists of multiple rogers-mucoid, hemorrhagic soft tissue fragments measuring 2.0 x 1.5 x 0.1 cm in aggregate. Specimen is entirely submitted in cassette A1. Specimen: [id number] Received: 05/29/24-134 Status: CALLY Leighmckenna Num: [id number] Spec Type: Surgical Subm Dr: Kirby Heredia Tissues: A Endometrium - Biopsy (EMBX) Procedures: Titi LAMBERT/Micro L4 Patient: RaulMichellemely Avalos [id number] (Continued) Specimen: [id number] Received: 05/29/24 (Continued) Signed (signature on file) Eloy Nguyen MD 06/01/24 1626 Specimen: [id number] Received: 05/29/24 Status: CALLY Joy Num: [id number] Spec Type: Surgical Subm Dr: Kirby Heredia Tissues: A Endometrium - Biopsy (EMBX) Procedures: HE/2, Gross/Micro L4 Patient: Michelle Carter [id number] (Continued) Specimen: [id number] Received: 05/29/24 (Continued) Microscopic Description Microscopic examinations are performed supporting the above interpretation CPT Codes 79981 Specimen: [id number] Received: 05/29/24 Status: CALLY Joy Num: [id number] Spec Type: Surgical Subm Dr: Kirby Heredia Tissues: A Endometrium - Biopsy (EMBX) Procedures: Titi LAMBERT/Fernando L4 Patient: Michelle Carter [id number] (Continued) Signed (signature on file) Eloy Nguyen MD 06/01/24 6347 [facility] CALCIUMon 11-25-2023 Calcium [Mass/Vol] 8.8 mg/dL Normal 8.5-10.[address] [facility] Comment on above: Performed By: #### C BCA, LIVR, 27120-0, 2498-4, 2731-8, 2284- 8, 2-9, 21239-2 #### [facility] ([id number]) [address], [address] [place] [address] CBC AND AUTO DIFFon 11-25-19 ABSOLUTE BASOPHIL 0.0 X10E9/L Normal 0.0-0.[address] [facility] Comment on above: Performed By: #### C BCA, LIVR, 67685-0, 2498-4, 2731-8, 2284- 8, 2131-9, 99691-2 #### [facility] ([id number]) [address], [address] [place] [address] ABSOLUTE NEUTROPHIL 3.8 X10E9/L Normal 1.5-6.6 [facility] Comment on above: Performed By: #### C BCA, LIVR, 58871-1, 2498-4, 2731-8, 2284- 8, 2131-9, 81399-8 #### [facility] ([id number]) [address], [address] [place] [address] Basophils/100 WBC (Bld) 0.4 % Normal [facility] Comment on above: Performed By: #### C BCA, LIVR, 82745-6, 2498-4, 2731-8, 2284- 8, 2131-9, 01017-1 #### [facility] ([id number]) [address], [address] [place] [address] Eosinophils (Bld) [#/Vol] 0.1 10*3/uL Normal 0.0-0.4 [facility] Comment on above: Performed By: #### C BCA, LIVR, 92352-4, 2498-4, 2731-8, 2284- 8, 213-9, 14850-7 #### [facility] ([id number]) [address], [address] [place] [address] Eosinophils/100 WBC (Bld) 1.9 % Normal [facility] Comment on above: Performed By: #### C BCA, LIVR, 25674-1, 2498-4, 2731-8, 2284- 8, 2132-9, 34785-8 #### [facility] ([id number]) [address], [address] [place] [address] Erythrocyte distribution width (RBC) [Ratio] 13.9 % Normal 11.5-15.0 [facility] Comment on above: Performed By: #### C BCA, LIVR, 42436-8, 2498-4, 2731-8, 2284- 8, 2131-9, 35826-8 #### [facility] ([id number]) [address], [address] [place] [address] Hematocrit (Bld) [Volume fraction] 37.1 % Normal 35-47 [facility] Comment on above: Performed By: #### C BCA, LIVR, 56785-5, 2498-4, 2731-8, 2284- 8, 2131-9, 94501-1 #### [facility] ([id number]) [address], [address] [place] [address] Hemoglobin (Bld) [Mass/Vol] 12.2 g/dL Normal 11.7-15.5 [facility] Comment on above: Performed By: #### C BCA, LIVR, 15546-3, 2498-4, 2731-8, 2284- 8, 2131-9, 63196-4 #### [facility] ([id number]) [address], [address] [place] [address] Lymphocytes (Bld) [#/Vol] 1.4 10*3/uL Normal 1.0-3.5 [facility] Comment on above: Performed By: #### C BCA, LIVR, 33805-9, 2498-4, 2731-8, 2284- 8, 2132-9, 91251-0 #### [facility] ([id number]) [address], [address] [place] [address] Lymphocytes/100 WBC (Bld) 25.7 % Normal [facility] Comment on above: Performed By: #### C BCA, LIVR, 87663-4, 2498-4, 2731-8, 2284- 8, 2-9, 93269-2 #### [facility] ([id number]) [address], [address] [place] [address] MCH (RBC) [Entitic mass] 30.0 pg Normal 27-34 [facility] Comment on above: Performed By: #### C BCA, LIVR, 21130-9, 2498-4, 2731-8, 2284- 8, 2131-9, 64616-8 #### [facility] ([id number]) [address], [address] [place] [address] MCHC (RBC) [Mass/Vol] 33.0 g/dL Normal 32-36 [facility] Comment on above: Performed By: #### C BCA, LIVR, 81091-2, 2498-4, 2731-8, 2284- 8, 2132-9, 65568-6 #### [facility] ([id number]) [address], [address] [place] [address] MCV (RBC) [Entitic vol] 91 fL Normal 80-100 [facility] Comment on above: Performed By: #### C BCA, LIVR, 17521-7, 2498-4, 2731-8, 2284- 8, 2132-9, 13280-2 #### [facility] ([id number]) [address], [address] [place] [address] Monocytes (Bld) [#/Vol] 0.3 10*3/uL Normal 0-0.9 [facility] Comment on above: Performed By: #### C BCA, LIVR, 02344-2, 2498-4, 2731-8, 2284- 8, 2132-9, 32358-3 #### [facility] ([id number]) [address], [address] [place] [address] Monocytes/100 WBC (Bld) 5.0 % Normal [facility] Comment on above: Performed By: #### C BCA, LIVR, 99530-2, 2498-4, 2731-8, 2284- 8, 2132-9, 56952-9 #### [facility] ([id number]) [address], [address] [place] [address] Neutrophils/100 WBC (Bld) 67.0 % Normal [facility] Comment on above: Performed By: #### C BCA, LIVR, 00053-5, 2498-4, 2731-8, 2284- 8, 2132-9, 08106-6 #### [facility] ([id number]) [address], [address] [place] [address] Platelet mean volume (Bld) [Entitic vol] 8.3 fL Normal 7-12 [facility] Comment on above: Performed By: #### C BCA, LIVR, 00997-0, 2498-4, 2731-8, 2284- 8, 2132-9, 16169-9 #### [facility] ([id number]) [address], [address] [place] [address] Platelets (Bld) [#/Vol] 309 10*3/uL Normal 150-450 [facility] Comment on above: Performed By: #### C BCA, LIVR, 90991-6, 2498-4, 2731-8, 2284- 8, 2132-9, 27230-9 #### [facility] ([id number]) [address] [place] [address], [address] [place] [address] RBC COUNT 4.08 X10E12/L Normal 3.80-5.20 [facility] Comment on above: Performed By: #### C BCA, LIVR, 64685-4, 2498-4, 2731-8, 2284- 8, 2-9, 60584-0 #### [facility] ([id number]) [address] [place] [address], [address] [place] [address] WBC (Bld) [#/Vol] 5.6 10*3/uL Normal 4.0-11.[address] [facility] Comment on above: Performed By: #### C BCA, LIVR, 03996-5, 2498-4, 2731-8, 2284- 8, 2131-9, 93678-8 #### [facility] ([id number]) [address] [place] [address], [facility] [address] [place] [address] Copper [Mass/Vol]on 11-25-19 24 COPPER 88 ug/dL Normal 80-155 [facility] Comment on above: Result Comment: NOTE This test was developed and its performance characteristics determined by [facility] [place] ([facility]). It has not been cleared or approved by the FDA. [facility] is regulated under CLIA as qualified to perform high-complexity testing. This test is used for clinical purposes. It should not be regarded as investigational or for research. Test Performed By: [facility] [address] [place] [address] Hospital Administrative Assistant: Travon Jose III, M.D. CLIA #[id number] Performed By: #### L IVR, TSHR #### [facility] ([id number]) [address] [place] [address], [address] [place] [address] Folate [Mass/Vol]on 11-25-19 24 FOLIC ACID >25.0 Normal >5.8 [facility] Comment on above: Result Comment: NEW REFERENCE RANGE Performed By: #### C BCA, LIVR, 64342-2, 2498-4, 2731-8, 2284-8, 2132-9, 19207-8 #### [facility] ([id number]) [address], [address] [place] [address] IRONon 11-25-2023 Iron [Mass/Vol] 109 ug/dL Normal 50-170 [facility] Comment on above: Performed By: #### C BCA, LIVR, 27791-7, 2498-4, 2731-8, 2284- 8, 2132-9, 78354-6 #### [facility] ([id number]) [address], [address] [place] [address] LIVER PANELon 11-25-2023 Albumin [Mass/Vol] 3.9 g/dL Normal 3.2-5.[address] [facility] Comment on above: Performed By: #### C BCA, LIVR, 20303-2, 2498-4, 2731-8, 2284- 8, 2132-9, 04197-9 #### [facility] ([id number]) [address], [address] [place] [address] ALP [Catalytic activity/Vol] 70 U/L Normal 39-130 [facility] Comment on above: Performed By: #### C BCA, LIVR, 83433-0, 2498-4, 2731-8, 2284- 8, 2132-9, 67732-5 #### [facility] ([id number]) [address], [address] [place] [address] ALT [Catalytic activity/Vol] 37 U/L High 0-31 [facility] Comment on above: Performed By: #### C BCA, LIVR, 34938-3, 2498-4, 2731-8, 2284- 8, 2132-9, 24588-8 #### [facility] ([id number]) [address], [address] [place] [address] AST [Catalytic activity/Vol] 19 U/L Normal 0-41 [facility] Comment on above: Performed By: #### C BCA, LIVR, 67020-4, 2498-4, 2731-8, 2284- 8, 2132-9, 80922-1 #### [facility] ([id number]) [address], [address] [place] [address] Bilirubin [Mass/Vol] 0.4 mg/dL Normal 0.3-1.2 [facility] Comment on above: Performed By: #### C BCA, LIVR, 80350-6, 2498-4, 2731-8, 2284- 8, 2132-9, 27158-6 #### [facility] ([id number]) [address], [address] [place] [address] Bilirubin.direct [Mass/Vol] 0.1 mg/dL Normal 0.0-0.4 [facility] Comment on above: Performed By: #### C BCA, LIVR, 01202-8, 2498-4, 2731-8, 2284- 8, 2132-9, 17978-1 #### [facility] ([id number]) [address], [address] [place] [address] Protein [Mass/Vol] 6.8 g/dL Normal 6.0-8.[address] [facility] Comment on above: Performed By: #### C BCA, LIVR, 54330-7, 2498-4, 2731-8, 2284- 8, 2132-9, 24339-7 #### [facility] ([id number]) [address], [address] [place] [address] Parathyrin.intact [Mass/Vol] on 11-25-2023 PTH INTACT 43 pg/mL Normal 12-88 [facility] Comment on above: Performed By: #### C BCA, LIVR, 66296-8, 2498-4, 2731-8, 2284- 8, 2132-9, 33022-8 #### [facility] ([id number]) [address] [facility], [address] [place] [address] VITAMIN B12on 11-25-2023 Cobalamin (Vitamin B12) [Mass/Vol] 482 pg/mL Normal 180-914 [facility] Comment on above: Performed By: #### C BCA, LIVR, 45716-7, 2498-4, 2731-8, 2284- 8, 2131-9, 40570-6 #### [facility] ([id number]) [address] [facility] [facility], [address] [place] [address] Vitamin D+Metabolites [Mass/ Vol]on 11-25-2023 VITAMIN D 25 HYD TOT 37.6 ng/mL Normal 30-100 [facility] Comment on above: Result Comment: Vitamin D status 25 [place] Vitamin D Deficiency <20 ng/mL Insufficiency 20-29 ng/mL Sufficiency 30-100 ng/mL Toxicity >100 ng/mL NOTE: A pediatric reference range has not been established by the rn transport of this kit. The [place] [employer] recommends a Vitamin D level of = or >20ng/mL in infants and children. Performed By: #### C BCA, LIVR, 00569-5, 2498-4, 2731-8, 2284-8, 2131-9, 89344-4 #### [facility] ([id number]) [address] [facility], [address] [place] [address] Zinc [Mass/Vol]on 11-25-2023 ZINC 59 ug/dL Low 60-120 [facility] Comment on above: Result Comment: NOTE This test was developed and its performance characteristics determined by [facility] [place] ([facility]). It has not been cleared or approved by the FDA. [facility] is regulated under CLIA as qualified to perform high-complexity testing. This test is used for clinical purposes. It should not be regarded as investigational or for research. Test Performed By: [facility] [address] [place] [address] Hospital Administrative Assistant: Travon Jose III, M.D. CLIA #[id number] Performed By: #### L IVR, TSHR #### [facility] ([id number]) [address] [facility], [address] [place] [address] XR hip RT min 2V(w/wo pelvis )*on 11-14-2023 XR hip RT min 2V(w/wo pelvis)* [facility] [address] [place] [address] XRay Report Signed Patient: Michelle Carter MR#: [id number] 82 : 1985 Acct:[id number] Age/Sex: 38 / F ADM Date: 11/14/23 Loc: [facility] Room: Type: [facility] Attending Dr: Ed Malhotra MD Copies to: [...] Gordo Escalante M.D.11/14/2023 2:25 PM Dictation Location: [place] [address] Transcribed By: [facility] 11/14/23 1425 Dictated By: Gordo Escalante II, MD 11/14/23 142 Signed By: 11/14/23 142 Normal [facility] Pending Sale To [facility] XR lumbar spine AP/LAT/FLX/E XTon 11-14-2023 XR lumbar spine AP/LAT/FLX/EXT [facility] [place] [address] [place] [address] XRay Report Signed Patient: Michelle Carter MR#: [id number] 82 : 1985 Acct:[id number] Age/Sex: 38 / F ADM Date: 11/14/23 Loc: [facility] Room: Type: [facility] Attending Dr: Ed Malhotra MD Copies to: [...] Gordo Escalante M.D.11/14/2023 2:23 PM Dictation Location: [place] [address] Transcribed By: [facility] 11/14/23 1423 Dictated By: Gordo Escalante II, MD 11/14/23 1421 Signed By: 11/14/23 1423 Normal The Pending Sale To [facility] Influenza virus B Ag [Presen ce] in Upper respiratory specimen by Rapid immunoassayon 11-11-2023 FLUBV Ag IA.rapid Ql (Nph) Negative [facility] No Panel Informationon 11-10 Influenza Type A (Rapid) Negative [facility] POC SARS CoV-2 Antigen Negative [facility] No Panel InformationOrdered By: Lissa Gifford on 11-11-2023 Quick Strep (POC) [facility] LIVER PANELon 12-28-2023 Albumin [Mass/Vol] 4.0 g/dL Normal 3.2-5.[address] [facility] Comment on above: Performed By: #### L IVR, TSHR #### [facility] ([id number]) [address], [address] [place] [address] ALP [Catalytic activity/Vol] 83 U/L Normal 39-130 [facility] Comment on above: Performed By: #### L IVR, TSHR #### [facility] ([id number]) [address], [address] [place] [address] ALT [Catalytic activity/Vol] 29 U/L Normal 0-31 [facility] Comment on above: Performed By: #### L IVR, TSHR #### [facility] ([id number]) [address], [address] [place] [address] AST [Catalytic activity/Vol] 16 U/L Normal 0-41 [facility] Comment on above: Performed By: #### L IVR, TSHR #### [facility] ([id number]) [address], [address] [place] [address] Bilirubin [Mass/Vol] 0.5 mg/dL Normal 0.3-1.2 [facility] Comment on above: Performed By: #### L IVR, TSHR #### [facility] ([id number]) [address], [address] [place] [address] Bilirubin.direct [Mass/Vol] 0.1 mg/dL Normal 0.0-0.4 [facility] Comment on above: Performed By: #### L IVR, TSHR #### [facility] ([id number]) [address], [address] [place] [address] Protein [Mass/Vol] 6.6 g/dL Normal 6.0-8.[address] [facility] Comment on above: Performed By: #### L IVR, TSHR #### [facility] ([id number]) [address], [address] [place] [address] TSH WITH REFLEXon 08-29-2023 TSH 1.17 uIU/mL Normal 0.49-4.67 [facility] Comment on above: Performed By: #### L IVR, TSHR #### [facility] ([id number]) [address], [address] [place] [address] CNPNon 07-05-2023 CNPN Telephone (ORAVON) MICHELLE CARTER ([id number]) 1985 F Date Time Provider Department 07/05/23 FRANK NEGRON During your visit today, we recorded the following information about you: Yamile Castelan 07/05/2023 3:37 PM Signed I have tried to reach patient multiple times. Phone goes to [employer]. I sent 2 my chart messages. I had a spot on hold for 07/15 for quite awhile. I had to remove the hold to offer to another patient. Yamile Kaba Allergies As of Date: 07/05/2023 Noted Allergy [...] Encounter Status:Closed by YAMILE CASTELAN on 07/05/23 Normal [facility] CNOVon 05-03-2023 CNOV Office Visit (ORAVON ) MICHELLE CARTER ([id number]) 1985 F Date Time Provider Department 05/03/23 9:45 AM FRANK NEGRON During your visit today, we recorded the following information about you: Weight Height 77.6 kg 1.664 m Frank Negron DO 05/03/2023 10:17 AM Signed Lateral epicondylitis of right elbow (primary encounter diagnosis) Minimally Invasive Tenotomy Informed Consent Consent Obtained: Written [place] Protocol A moment to CARE was completed. [...] possible retained foreign bodies accounted for. DO Perfecto Garces Jason A, DO 05/03/2023 9:51 AM Signed [facility] POST-PROCEDURE INSTRUCTIONS 1. WOUND CARE - Keep [...] Best way to connect would be via MyChart or directly call Yamile at [phone]. If unable to connect, please proceed to [...] and beyond. Thank you for choosing the [facility] Medical Orthopedic team for your care. Frank Negron D.O. Sports AND Medical Orthopaedics [place] (more content not included)... Normal [facility] ELBOW RT (POC) HAYDEE USE ON Kim 05-03-2023 [facility] CNTHERAPYon 03-21-2023 CNTHERAPY OT/PT/Speech Visit ( KATTOTRJeyson) MICHELLE CARTER ([id number]) 1985 F Date Time Provider Department 03/21/23 8:00 AM MARCELINA MCMANUS Date Time Provider Department Center 03/21/2023 8:00 AM [id number] MCMANUS Reason for Visit: OT Discharge [750] [...] 40 mg by mouth once daily. Normal [facility] CNTHERAPYon 03-07-2023 CNTHERAPY OT/PT/Speech Visit ( CHRISTINA) MICHELLE CARTER ([id number]) 1985 F Date Time Provider Department 03/07/23 11:00 AM ESTEPHANIA WHITT Date Time Provider Department Center 03/07/2023 11:00 AM [id number] WHITT Reason for Visit: Occupational Therapy [504] [...] by mouth once daily. Letter Text Normal [facility] CNTHERAPYon 03-01-2023 CNTHERAPY OT/PT/Speech Visit ( CHRISTINA) MICHELLE CARTER ([id number]) 1985 F Date Time Provider Department 03/01/23 8:00 AM ESTEPHANIA WHITT Date Time Provider Department Center 03/01/2023 8:00 AM [id number] WHITT Reason for Visit: Occupational Therapy [504] [...] by mouth once daily. Letter Text Normal [facility] CNTHERAPYon 02-22-2023 CNTHERAPY OT/PT/Speech Visit ( CHRISTINA) MICHELLE CARTER ([id number]) 1985 F Date Time Provider Department 02/22/23 9:30 AM ESTEPHANIA WHITT Date Time Provider Department Center 02/22/2023 9:30 AM [id number] WHITT Reason for Visit: OT EVAL [748] [...] 1 OF 4 last updated by Estephania Whitt OTR/L on 02/22/2023 10:16 AM Annotated image of OT HAND EPICONDYLITIS LATERAL/MEDIAL PG 2 OF 4 last updated by Estephania Whitt OTR/L on 02/22/2023 10:16 AM Annotated image of OT HAND EPICONDYLITIS LATERAL/MEDIAL PG 3 OF 4 last updated by Estephania Whitt OTR/L on 02/22/2023 10:16 AM Annotated image of OT HAND EPICONDYLITIS LATERAL/MEDIAL PG 4 OF 4 last updated by Estephania Whitt OTR/L on 02/22/2023 10:16 AM Annotated image of OT HAND EPICONDYLITIS LATERAL/MEDIAL PG 1 OF 4 last updated by Estephania Whitt OTR/L on 02/22/2023 10:21 AM Letter Text Normal [facility] CNOVon 02-14-2023 CNOV Office Visit (ORAVON ) MICHELLE CARTER ([id number]) 1985 F Date Time Provider Department 02/14/23 11:15 AM FRANK NEGRON During your visit today, we recorded the following information about you: Frank Negron DO 02/14/2023 12:57 PM Signed [facility] Office Visit Documentation Note [facility] Sports Medicine Orthopaedic and Rheumatologic [place] REASON FOR VISIT / CHIEF COMPLAINT SERVICE DATE: February 14, 2023 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 Verbal health education was given to patient. Patient verbalizes understanding and agrees with the treatment plan as detailed above. Frank Negron D.O. [facility] Orthopaedic and Rheumatologic [place] Team Physician, [facility] Consulting Physician, [facility] Yamile Reddy, Clinical Pharmacy Technician [phone] Allergies As of Date: 02/14/2023 Noted Allergy Reaction PENICILLINS 08/20/2022 4 - Hives SULFA (SULFONAMIDE ANTIBIOTICS) 08/20/2022 4 - Hives Date Reviewed: 02/14/2023 Reviewed by: Edy Agarwal MA - Fully Assessed Reason for Visit: Established Patient [175] Primary Visit Diagnosis:Right elbow pain [M25.521] Other Visit Diagnosis:Lateral epicondylitis of right elbow [M77.11] Order(s):US ELBOW RT (POC) HAYDEE USE ONLY [6464891] Order #: [id number]. #:[id number]: 1 methylPREDNISolone (MEDROL DOSE-PACK) 4 mg Dose-PackAs Instructed per packageDisp: 1 tabletRfl: 0 CONSULT TO CELL TUBER MACHINE [19990910] Order #: [id number]: 1 FUTURE Prescriptions as of 02/14/2023 - [...] package Level of Service: OFFICE/OUTPATIENT ESTABLISHED MOD MDM 30-39 MIN [40514] Encounter Status:Closed by FRANK NEGRON on 02/14/23 Normal [facility] ELBOW RT (POC) HAYDEE USE ON Kim 02-14-2023 [facility] CNPIdalia 01-24-2023 CNPN Telephone (ORQ) MICHELLE CARTER ([id number]) 1985 F Date Time Provider Department 01/24/23 FRANK NEGRON ORQ During your visit today, we recorded the following information about you: Amy Wilson 01/24/2023 10:32 AM Signed Pt requesting OT order for elbow pain. It is affecting her job. Pt would like to complete this with a facility in [place], [place]. Pt does not have the fax number but will try to get this and call us back. [place] OT phone [phone] Patient has been identified by name and birthdate. Duration of symptoms: N/A Person calling: self Call patient at: on cell [phone] (home) Was an appointment scheduled: No Closing statement: Results or non-symptom based questions: Thank you for calling [facility], your call will be returned within the next business day. Amy Sherman RN 02/01/2023 10:44 AM Signed Sent [...] Encounter Status:Closed by LESLY SHERMAN on 02/01/23 [facility] CNOVon 12-20-2022 CNOV Office Visit (ORAVON ) MICHELLE CARTER ([id number]) 1985 F Date Time Provider Department 12/20/22 3:00 PM FRANK NEGRON During your visit today, we recorded the following information about you: Frank Negron DO 12/20/2022 12:52 PM Signed Right elbow pain (primary encounter diagnosis) Lateral epicondylitis of both elbows Biologics Injection: R elbow Previously completed treatments/injections: Platelet Rich Plasma Informed Consent Consent Obtained: Written [place] Protocol A moment to CARE was completed. [...] Frank Negron DO Referring Provider: FRANK NEGRON [[id number]] Allergies As of Date: 12/20/2022 Noted Allergy Reaction PENICILLINS 08/20/2022 4 - Hives SULFA (SULFONAMIDE ANTIBIOTICS) 08/20/2022 4 - Hives Date Reviewed: 12/20/2022 Reviewed by: Edy Agarwal MA - Fully Assessed Reason for Visit: Established Patient [175] Primary Visit Diagnosis:Right elbow pain [M25.521] Other Visit Diagnosis:Lateral epicondylitis of both elbows [M77.11, M77.12] Order(s):US ELBOW RT (POC) HAYDEE USE ONLY [[id number]] Order #: [id number]: 1 acetaminophen-codeine (TYLENOL-CODEINE #3) 300-30 mg per tabletTake 1 tablet by mouth every 4 hours as needed for up to 5 days.Disp: 12 tabletRfl: 0 Biologics Injection: R elbow [LTU882] Order #: [id number] [] lidocaine (PF) 10 mg/mL (1 %) [...] Status:Closed by FRANK NEGRON on 12/20/22 Normal [facility] US ELBOW RT (POC) HAYDEE USE ON Kim 12-20-2022 [facility] CNOVon 12-04-2022 CNOV Office Visit (ORFWHP ) MICHELLE CARTER ([id number]) 1985 F Date Time Provider Department 12/04/22 10:00 AM RFANK NEGRON ORFWHP During your visit today, we recorded the following information about you: Frank Negron DO 12/04/2022 10:03 AM Signed [facility] Office Visit Documentation Note [facility] Sports Medicine Orthopaedic and Rheumatologic [place] HISTORY OF PRESENT ILLNESS (HPI) SERVICE DATE: December 04, 2022 PCP: No primary care provider on file. CHIEF COMPLAINT / REASON FOR VISIT Michelle Carter is a 37 year old female who [...] EXCEPT FOR MINIMAL LATERAL EPICONDYLAR ENTHESOPATHY BILATERALLY Exhibitions Curator: [facility] Transcribe Date/Time: Jul 20 2022 10:34A ... Last MRI Elbow - Impression Only MRI ELBOW WO IVCON RT Exam End: 09/11/2022 11:27 AM (Final result) Impression: IMPRESSION: 1. Tendinosis and a small partial tear of the common extensor tendon origin. Exhibitions Curator: SHAYNE Transcribe Date/Time: Sep 11 2022 11:42A... [...] with the treatment plan. Frank Negron D.O. [facility] Orthopaedic and Rheumatologic Director Of Safety And Security, Tendon Center AND Jacob Program Team Physician, [facility] [employer] Consulting Physician, [place] [facility] Yamile Reddy, Clinical Pharmacy Technician [phone] Allergies As of Date: 12/04/2022 Noted Allergy [...] vits 4/ir (more content not included)... Normal [facility] US ELBOW LTon 11-16-2022 US ELBOW LT [...] OF THE RADIAL COLLATERAL LIGAMENT, ALSO UNCHANGED. Exhibitions Curator: SHAYNE Transcribe Date/Time: Nov 16 2022 11:03A Dictated by : SETH JAQUEZ MD This examination was interpreted and the report reviewed and electronically signed by: SETH JAQUEZ MD on Nov 16 2022 1:00PM EST [id number] Normal [facility] CNOVon 09-17-2022 CNOV Office Visit (ORAVON ) MICHELLE CARTER ([id number]) 1985 F Date Time Provider Department 09/17/22 10:15 AM FRANK NEGRON During your visit today, we recorded the following information about you: Weight Height 117.9 kg 1.664 m Frank Negron DO 09/17/2022 10:48 AM Signed [facility] Office Visit Documentation Note [facility] Sports Medicine Orthopaedic and Rheumatologic [place] HISTORY OF PRESENT ILLNESS (HPI) SERVICE DATE: September 17, 2022 PCP: No primary care provider on file. CHIEF COMPLAINT / REASON FOR VISIT Michelle Carter is a 37 year old female who [...] EXCEPT FOR MINIMAL LATERAL EPICONDYLAR ENTHESOPATHY BILATERALLY Exhibitions Curator: SHAYNE Transcribe Date/Time: Jul 20 2022 10:34A ... Last MRI Elbow - Impression Only MRI ELBOW WO IVCON RT Exam End: 09/11/2022 11:27 AM (Final result) Impression: IMPRESSION: 1. Tendinosis and a small partial tear of the common extensor tendon origin. Exhibitions Curator: SHAYNE Transcribe Date/Time: Sep 11 2022 11:42A... ASSESSMENT / PLAN CLINICAL IMPRESSION / ASSESSMENT: CLINICAL IMPRESSION / ASSESSMENT: (M77.11, M77.12) Lateral epicondylitis of both elbows (primary encounter diagnosis) (M25.522) Left elbow pain (M25.521) Right elbow pain (M79.7) Fibromyalgia RECOMMENDATION / PLAN: Counseling / Referral A total of 20 minutes were spent altt-rp-wvsd with the patient during this encounter and [...] include #1 bilateral PRP injections at $1500 [id number] Option #2 bilateral minimally invasive percutaneous tendon debridement Option #3 surgical consult.. Follow up: Okay to send a MyChart note on my recommendation after ultrasound of the left lateral elbow for evaluation of chronicity of common extensor tendon injury. Written instructions (see patient instructions) and verbal health education given to patient. Patient verbalizes understanding and agrees with the treatment plan. Frank Negron D.O. [facility] Orthopaedic and Rheumatologic Director Of Safety And Security, Tendon Center AND T.E.A.M. Program Team Physician, [facility] [employer] Consulting Physician, [place] Lexi Reddy, Clinical Pharmacy Technician [phone] Frank Negron DO 09/17/2022 10:35 AM Signed IMAGING AND LABORATORY Dr. Negron has requested further imaging to help coordinate your individualized plan of care. Most of these images will need to be appropriately scheduled. MRI/CT/Xray : Please stop at the front end developer to coordinate timing and scheduling of your image. IF your image is completed outside of the [facility], two steps will need to be taken and presented to Dr. Negron's office for review. 1. Gather a CD copy of your image at the time of service. 2. Gather Radiology Report, when available. Reports can be faxed to [phone]. [facility] Ultrasound : Please call [phone] to schedule your ultrasound appointment. LAB Requests: These can be completed at your nearest [facility] LAB facility. Please allow for up to one week for results to finalize. Follow up: You may request [employer] release of your imaging at 3 DAYS after your imaging appointment. Dr. Negron will often read the image and make a recommendation through [employer]. Please understand, that due to the complexity of the presenting issue, many patients will need a physical examination even after their imaging, which would require a (more content not included)... Normal [facility] CNPNon 09-17-2022 CNPN Telephone (RULTTB) MICHELLE CARTER ([id number]) 1985 F Date Time Provider Department 09/17/22 XANDER LÓPEZ During your visit today, we recorded the [...] for their MSK US on 11/16 at [place]. Allergies As of Date: 09/17/2022 Noted Allergy [...] Status:Closed by KESHAWN CASTRO on 09/17/22 Normal [facility] MR Elbow - left WO contrasto n 09-11-2022 IMPRESSION: 1. Large partial tear of the common extensor tendon origin with associated tearing of the radial collateral ligament. Exhibitions Curator: PSCB Transcribe Date/Time: Sep 11 2022 11:29A Dictated by : ASHLEY MCCARTY MD This examination was interpreted and the report reviewed and electronically signed by: ASHLEY MCCARTY MD on Sep 11 2022 11:33AM [facility] DIVISION OF RADIOLOGY * * *Final Report* * * DATE OF EXAM: Sep 11 2022 10:52AM [facility] 0188 - MRI ELBOW WO IVCON LT [...] Joint fluid: No joint effusion nor synovitis. DIVISION OF RADIOLOGY Provider, [facility] - 09/11/2022 * * *Final Report* * * DATE OF EXAM: Sep 11 2022 10:52AM [facility] 0188 - MRI ELBOW WO IVCON LT [...] Joint fluid: No joint effusion nor synovitis. IMPRESSION IMPRESSION: 1. Large partial tear of the common extensor tendon origin with associated tearing of the radial collateral ligament. Exhibitions Curator: [facility] Transcribe Date/Time: Sep 11 2022 11:29A Dictated by : ASHLEY MCCARTY MD This examination was interpreted and the report reviewed and electronically signed by: ASHLEY MCCARTY MD on Sep 11 2022 11:33AM EST [facility] MR Elbow - left WO contrastO rdered By: Ccf Provider on 09-11-2022 [facility] MR Elbow - right WO contrast on 09-11-2022 IMPRESSION: 1. Tendinosis and a small partial tear of the common extensor tendon origin. Exhibitions Curator: [facility] Transcribe Date/Time: Sep 11 2022 11:42A Dictated by : ASHLEY MCCARTY MD This examination was interpreted and the report reviewed and electronically signed by: ASHLEY MCCARTY MD on Sep 11 2022 11:47AM EST DIVISION OF RADIOLOGY * * *Final Report* * * DATE [...] Joint fluid: No joint effusion nor synovitis. DIVISION OF RADIOLOGY Provider, [facility] - 09/11/2022 * * *Final Report* * * DATE [...] Joint fluid: No joint effusion nor synovitis. IMPRESSION IMPRESSION: 1. Tendinosis and a small partial tear of the common extensor tendon origin. Exhibitions Curator: [facility] Transcribe Date/Time: Sep 11 2022 11:42A Dictated by : ASHLEY MCCARTY MD This examination was interpreted and the report reviewed and electronically signed by: ASHLEY MCCARTY MD on Sep 11 2022 11:47AM EST [facility] MR Elbow - right WO contrast Ordered By: Ccf Provider on 09-11-2022 [facility] MRI ELBOW WO IVCON LTon - MRI ELBOW WO IVCON LT * * [...] associated tearing of the radial collateral ligament. Exhibitions Curator: [facility] Transcribe Date/Time: Sep 11 2022 11:29A Dictated by : ASHLEY MCCARTY MD This examination was interpreted and the report reviewed and electronically signed by: ASHLEY MCCARTY MD on Sep 11 2022 11:33AM EST [id number] Normal [facility] MRI ELBOW WO IVCON RTon - MRI ELBOW WO IVCON RT * * *Final Report* * * DATE OF EXAM: Sep 11 2022 11:27AM [facility] 0189 - MRI ELBOW WO IVCON RT [...] tear of the common extensor tendon origin. Exhibitions Curator: PSCB Transcribe Date/Time: Sep 11 2022 11:42A Dictated by : ASHLEY MCCARTY MD This examination was interpreted and the report reviewed and electronically signed by: ASHLEY MCCARTY MD on Sep 11 2022 11:47AM EST [id number] Normal [facility] No Panel Informationon 09-11 Radiology Study observation (narrative) [facility] 25(OH)D3 SerPl-mCncon 2021 25-hydroxyvitamin D3 [Mass/Vol] 37.9 ng/mL Normal 31.0-80.0 [facility] Comment on above: Order Comment: Serena franks Type: BLOOD SPECIMEN Ordering Facility: [facility] Address: [address] [place], [place] [address] Result Comment: Clas sification of 25 [place] Vitamin D status: Deficiency/Insufficiency: < or = 30 ng/ml. Sufficiency/Optimal Levels: 31-80 ng/mL Toxicity: > 100 ng/mL. Test performed by chemiluminescent immunoassay. Performed By: #### 1 989-3 #### [facility] CLIA [id number] [address] [place] [address] [place] FELICIANO BY IFA WITH REFLEXon Nuclear Ab IF (S) [Titer] Negative Normal Negative [facility] Comment on above: Order Comment: Serena franks Type: BLOOD SPECIMEN Ordering Facility: [facility] Address: [address] [place] [id number] Result Comment: Anti -nuclear antibody test is used as an aid in diagnosis of systemic autoimmune diseases. Where positive and clinically warranted, follow-up using disease-specific testing is recommended. Low positive titers are not uncommon with advanced age, certain chronic infections, and malignancies among others. Test methodology: Indirect fluorescence immunoassay (IFA) using HEp-2 cells. Performed By: #### A NAIFR #### [facility] CLIA [id number] [address] [facility] [id number] [place] C-REACTIVE PROTEIN (CRP)on 1 10-21-2021 CRP [Mass/Vol] 2.8 mg/dL High <0.9 mg/dL [facility] CBC W Auto Differential pane l (Bld)on 08-20-2022 Basophils (Bld) [#/Vol] 0.03 10*3/uL Normal <0.11 [facility] Comment on above: Order Comment: Speci men Type: BLOOD SPECIMEN Ordering Facility: [facility] Address: [address] [place] [address] Performed By: #### 5 7021-8 #### [facility] CLIA [id number] [address] [place] [address] [place] Basophils/100 WBC (Bld) 0.1 % Normal [facility] Comment on above: Order Comment: Speci men Type: BLOOD SPECIMEN Ordering Facility: [facility] Address: [address] [address] Performed By: #### 5 7021-8 #### [facility] [place] [id number] [address] [place] [address] [place] Differential cell count method Nom (Bld) Auto Normal [facility] Comment on above: Order Comment: Speci men Type: BLOOD SPECIMEN Ordering Facility: [facility] Address: [address] [address] Performed By: #### 5 7021-8 #### [facility] IA [id number] [address] [place] [address] [place] Eosinophils (Bld) [#/Vol] 10*3/uL Normal <0.46 [facility] Comment on above: Order Comment: Speci men Type: BLOOD SPECIMEN Ordering Facility: [facility] Address: [address] [address] Performed By: #### 5 7021-8 #### [facility] IA [id number] [address] [place] [address] [place] Eosinophils/100 WBC (Bld) 0.1 % Normal [facility] Comment on above: Order Comment: Speci men Type: BLOOD SPECIMEN Ordering Facility: [facility] Address: [address] [address] Performed By: #### 5 7021-8 #### [facility] IA [id number] [address] [place] Erythrocyte distribution width (RBC) [Ratio] 13.1 % Normal 11.5-15.0 [facility] Comment on above: Order Comment: Speci men Type: BLOOD SPECIMEN Ordering Facility: [facility] Address: [address] [address] Performed By: #### 5 7021-8 #### [facility] [place] [id number] [place] [address] [place] Hematocrit (Bld) [Volume fraction] 40.2 % Normal 36.0-46.0 [facility] Comment on above: Order Comment: Speci men Type: BLOOD SPECIMEN Ordering Facility: [facility] Address: [address] [address] Performed By: #### 5 7021-8 #### [facility] IA [id number] [address] [place] [address] [place] Hemoglobin (Bld) [Mass/Vol] 13.0 g/dL Normal 11.5-15.5 [facility] Comment on above: Order Comment: Speci men Type: BLOOD SPECIMEN Ordering Facility: [facility] Address: [address] Performed By: #### 5 7021-8 #### [facility] IA [id number] [address] [place] [address] [place] Immature granulocytes (Bld) [#/Vol] 0.13 10*3/uL High <0.10 [facility] Comment on above: Order Comment: Speci men Type: BLOOD SPECIMEN Ordering Facility: [facility] Address: [address] [address] Performed By: #### 5 7021-8 #### [facility] IA [id number] [address] OF [facility] Immature granulocytes/100 WBC (Bld) 0.6 % Normal [facility] Comment on above: Order Comment: Speci men Type: BLOOD SPECIMEN Ordering Facility: [facility] Address: [address] [address] Performed By: #### 5 7021-8 #### [facility] IA [id number] [address] Lymphocytes (Bld) [#/Vol] 1.68 10*3/uL Normal 1.00-4.00 [facility] Comment on above: Order Comment: Speci men Type: BLOOD SPECIMEN Ordering Facility: [facility] Address: [address] [address] Performed By: #### 5 7021-8 #### [facility] IA [id number] [address] Lymphocytes/100 WBC (Bld) 7.9 % Normal [facility] Comment on above: Order Comment: Speci men Type: BLOOD SPECIMEN Ordering Facility: [facility] Address: [address] [address] Performed By: #### 5 7021-8 #### [facility] IA [id number] [address] [place] [address] [place] MCH (RBC) [Entitic mass] 28.9 pg Normal 26.0-34.0 [facility] Comment on above: Order Comment: Speci men Type: BLOOD SPECIMEN Ordering Facility: [facility] Address: [address] [address] Performed By: #### 5 7021-8 #### [facility] IA [id number] [address] [place] MCHC (RBC) [Mass/Vol] 32.3 g/dL Normal 30.5-36.0 [facility] Comment on above: Order Comment: Speci men Type: BLOOD SPECIMEN Ordering Facility: [facility] Address: [address] [address] Performed By: #### 5 7021-8 #### [facility] CLIA [id number] [address] [place] [address] [place] MCV (RBC) [Entitic vol] 89.3 fL Normal 80.0-100.0 [facility] Comment on above: Order Comment: Speci men Type: BLOOD SPECIMEN Ordering Facility: [facility] Address: [address] [address] Performed By: #### 5 7021-8 #### [facility] IA [id number] [address] [place] [address] [place] Monocytes (Bld) [#/Vol] 1.22 10*3/uL High <0.87 [facility] Comment on above: Order Comment: Speci men Type: BLOOD SPECIMEN Ordering Facility: [facility] Address: [address] [address] Performed By: #### 5 7021-8 #### [facility] IA [id number] [address] [place] Monocytes/100 WBC (Bld) 5.7 % Normal [facility] Comment on above: Order Comment: Speci men Type: BLOOD SPECIMEN Ordering Facility: [facility] Address: [address] Performed By: #### 5 7021-8 #### [facility] CLIA [id number] [address] [place] [address] [place] Neutrophils (Bld) [#/Vol] 18.27 10*3/uL High 1.45-7.50 [facility] Comment on above: Order Comment: Speci men Type: BLOOD SPECIMEN Ordering Facility: [facility] Address: [address] Performed By: #### 5 7021-8 #### [facility] IA [id number] [address] [place] [address] [place] Neutrophils/100 WBC (Bld) 85.6 % Normal [facility] Comment on above: Order Comment: Speci men Type: BLOOD SPECIMEN Ordering Facility: [facility] Address: [address] Performed By: #### 5 7021-8 #### [facility] IA [id number] [address] [place] [address] [place] Nucleated RBC (Bld) [#/Vol] 10*3/uL Normal <0.01 [facility] Comment on above: Order Comment: Speci men Type: BLOOD SPECIMEN Ordering Facility: [facility] Address: [address] Performed By: #### 5 7021-8 #### [facility] IA [id number] [address] [place] [address] [place] Nucleated RBC/100 WBC (Bld) [Ratio] 0.0 /100 WBC Normal [facility] Comment on above: Order Comment: Speci men Type: BLOOD SPECIMEN Ordering Facility: [facility] Address: [address] Performed By: #### 5 7021-8 #### [facility] IA [id number] [address] [place] [address] [place] Platelet mean volume (Bld) [Entitic vol] 9.1 fL Normal 9.0-12.7 [facility] Comment on above: Order Comment: Speci men Type: BLOOD SPECIMEN Ordering Facility: [facility] Address: [address] Performed By: #### 5 7021-8 #### [facility] IA [id number] [address] [place] [address] [place] Platelets (Bld) [#/Vol] 358 10*3/uL Normal 150-400 [facility] Comment on above: Order Comment: Speci men Type: BLOOD SPECIMEN Ordering Facility: [facility] Address: [address] [address] Performed By: #### 5 7021-8 #### [facility] IA [id number] [address] [place] [address] [place] RBC (Bld) [#/Vol] 4.50 10*6/uL Normal 3.90-5.20 [facility] Comment on above: Order Comment: Speci men Type: BLOOD SPECIMEN Ordering Facility: [facility] Address: [address] [address] Performed By: #### 5 7021-8 #### [facility] IA [id number] [address] [place] [address] [place] WBC (Bld) [#/Vol] 21.35 10*3/uL High 3.70-11.00 [facility] Comment on above: Order Comment: Speci men Type: BLOOD SPECIMEN Ordering Facility: [facility] Address: [address] [address] Performed By: #### 5 7021-8 #### [facility] IA [id number] [address] [place] [address] [place] Basophils (Bld) [#/Vol] 0.03 10*3/uL <0.11 k/uL [facility] Basophils/100 WBC (Bld) 0.1 % [facility] Differential cell count method Nom (Bld) Auto [facility] Eosinophils (Bld) [#/Vol] <0.46 k/uL [facility] Eosinophils/100 WBC (Bld) 0.1 % [facility] Erythrocyte distribution width (RBC) [Ratio] 13.1 % 11.5 - 15.0 % [facility] Hematocrit (Bld) [Volume fraction] 40.2 % 36.0 - 46.0 % [facility] Hemoglobin (Bld) [Mass/Vol] 13.0 g/dL 11.5 - 15.5 g/dL [facility] Immature granulocytes (Bld) [#/Vol] 0.13 10*3/uL High <0.10 k/uL [facility] Immature granulocytes/100 WBC (Bld) 0.6 % [facility] Lymphocytes (Bld) [#/Vol] 1.68 10*3/uL 1.00 - 4.00 k/uL [facility] Lymphocytes/100 WBC (Bld) 7.9 % [facility] MCH (RBC) [Entitic mass] 28.9 pg 26.0 - 34.0 pg [facility] MCHC (RBC) [Mass/Vol] 32.3 g/dL 30.5 - 36.0 g/dL [facility] MCV (RBC) [Entitic vol] 89.3 fL 80.0 - 100.0 fL [facility] Monocytes (Bld) [#/Vol] 1.22 10*3/uL High <0.87 k/uL [facility] Monocytes/100 WBC (Bld) 5.7 % [facility] Neutrophils (Bld) [#/Vol] 18.27 10*3/uL High 1.45 - 7.50 k/uL [facility] Neutrophils/100 WBC (Bld) 85.6 % [facility] Nucleated RBC (Bld) [#/Vol] <0.01 k/uL [facility] Nucleated RBC/100 WBC (Bld) [Ratio] 0.0 /100 WBC [facility] Platelet mean volume (Bld) [Entitic vol] 9.1 fL 9.0 - 12.7 fL [facility] Platelets (Bld) [#/Vol] 358 10*3/uL 150 - 400 k/uL [facility] RBC (Bld) [#/Vol] 4.50 10*6/uL 3.90 - 5.20 m/uL [facility] WBC (Bld) [#/Vol] 21.35 10*3/uL High 3.70 - 11.00 k/uL [facility]2022 CRP [Mass/Vol] 2.8 mg/dL High <0.9 [facility] rosie Comment on above: Order Comment: Speci men Type: BLOOD SPECIMEN Ordering Facility: [facility] Address: [address] [place] [address] Performed By: #### 2 4323-8, 1987-5, 308- #### [facility] CLIA [id number] [address] [place] [address] [place] Comprehensive metabolic 2000 panelon 08-20-2022 Albumin [Mass/Vol] 4.0 g/dL Normal 3.9-4.9 [facility] Comment on above: Order Comment: Speci men Type: BLOOD SPECIMEN Ordering Facility: [facility] Address: [address] [place] [address] Performed By: #### 2 4328, 1988-01, 3083-09 #### [facility] CLIA [id number] [address] [place] [address] [place] ALP [Catalytic activity/Vol] 92 U/L Normal 34-123 [facility] Comment on above: Order Comment: Speci men Type: BLOOD SPECIMEN Ordering Facility: [facility] Address: [address] [place] [address] Performed By: #### 2 4328, 1988-01, 3083-09 #### [facility] CLIA [id number] [address] [place] [address] [place] ALT [Catalytic activity/Vol] 32 U/L Normal 7-38 [facility] Comment on above: Order Comment: Speci men Type: BLOOD SPECIMEN Ordering Facility: [facility] Address: [address] [place] [address] Performed By: #### 2 4323-04, 1988-01, 3083-09 #### [facility] CLIA [id number] [address] [place] [address] [place] Anion gap [Moles/Vol] 9 mmol/L Normal 9-18 [facility] Comment on above: Order Comment: Speci men Type: BLOOD SPECIMEN Ordering Facility: [facility] Address: [address] [place] [address] Performed By: #### 2 4328, 1988-01, 3083-09 #### [facility] CLIA [id number] [address] [place] [address] [place] AST [Catalytic activity/Vol] 16 U/L Normal 13-35 [facility] Comment on above: Order Comment: Speci men Type: BLOOD SPECIMEN Ordering Facility: [facility] Address: [address] [place] [address] Performed By: #### 2 4323-04, 1988-01, 3083-09 #### [facility] IA [id number] [address] [place] [address] [place] Bilirubin [Mass/Vol] 0.3 mg/dL Normal 0.2-1.3 [facility] Comment on above: Order Comment: Speci men Type: BLOOD SPECIMEN Ordering Facility: [facility] Address: [address] Performed By: #### 2 4323-04, 1988-01, 3083-09 #### [facility] CLIA [id number] [address] [place] [address] [place] Calcium [Mass/Vol] 8.6 mg/dL Normal 8.5-10.2 [facility] Comment on above: Order Comment: Speci men Type: BLOOD SPECIMEN Ordering Facility: [facility] Address: [address] [place] [address] Performed By: #### 2 4323-04, 1988-01, 3083-09 #### [facility] IA [id number] [address] [place] [address] [place] Chloride [Moles/Vol] 98 mmol/L Normal 97-105 [facility] Comment on above: Order Comment: Speci men Type: BLOOD SPECIMEN Ordering Facility: [facility] Address: [address] [place] [address] Performed By: #### 2 4323-04, 1988-01, 3083-09 #### [facility] IA [id number] [address] [place] [address] [place] CO2 [Moles/Vol] 25 mmol/L Normal 22-30 [facility] Comment on above: Order Comment: Speci men Type: BLOOD SPECIMEN Ordering Facility: [facility] Address: [address] [place] [address] Performed By: #### 2 4323-04, 1988-01, 3083-09 #### [facility] CLIA [id number] [address] [place] [address] [place] Creatinine [Mass/Vol] 0.65 mg/dL Normal 0.58-0.96 [facility] Comment on above: Order Comment: Serena franks Type: BLOOD SPECIMEN Ordering Facility: [facility] Address: [address] [place], [place] [phone] Performed By: #### 2 4323-8, 1988-01, 3083-09 #### [facility] CLIA [id number] [address] [place] [address] [place] ESTIMATED GLOMERULAR FILTRATION RATE 118 mL/min/1.73m??? Normal >=60 [facility] Comment on above: Order Comment: Serena franks Type: BLOOD SPECIMEN Ordering Facility: [facility] Address: [address] [place], [place] [address] Result Comment: Ana mated Glomerular Filtration Rate [...] reflect actual GFR. Performed By: #### 2 43238, 1988-01, 3083-09 #### [facility] CLIA [id number] [address] [place] [address] [place] Glucose [Mass/Vol] 107 mg/dL High 74-99 [facility] Comment on above: Order Comment: Serena franks Type: BLOOD SPECIMEN Ordering Facility: [facility] Address: [address] [place], [place] [address] Result Comment: The [place] [employer] (ADA) provides guidance for cutoff [...] Standards of Medical Care in Diabetes 2016, [place] [employer]. Diabetes Care. 2016.39(Suppl 1). Performed By: #### 2 4323-04, 3083-09 #### [facility] CLIA [id number] [address] [place] [address] [place] Potassium [Moles/Vol] 4.2 mmol/L Normal 3.7-5.1 [facility] Comment on above: Order Comment: Speci men Type: BLOOD SPECIMEN Ordering Facility: [facility] Address: [address] [address] Performed By: #### 2 4323-04, 3083-09 #### [facility] IA [id number] [address] [place] [address] [place] Protein [Mass/Vol] 7.1 g/dL Normal 6.3-8.0 [facility] Comment on above: Order Comment: Speci men Type: BLOOD SPECIMEN Ordering Facility: [facility] Address: [address] [address] Performed By: #### 2 4323-04, 3083-09 #### [facility] IA [id number] [address] [place] [address] [place] Sodium [Moles/Vol] 132 mmol/L Low 136-144 [facility] Comment on above: Order Comment: Speci men Type: BLOOD SPECIMEN Ordering Facility: [facility] Address: [address] [place] [address] Performed By: #### 2 4323-04, 3083-09 #### [facility] CLIA [id number] [address] [place] [address] [place] Urea nitrogen [Mass/Vol] 17 mg/dL Normal 7-21 [facility] Comment on above: Order Comment: Speci men Type: BLOOD SPECIMEN Ordering [facility] [address] [facility] [place] [phone] Performed By: #### 2 4323-8, 1987-, 308- #### [facility] CLIA [id number] [address] [place] [address] [place] [facility] Albumin [Mass/Vol] 4.0 g/dL 3.9 - 4.9 g/dL [facility] ALP [Catalytic activity/Vol] 92 U/L 34 - 123 U/L [facility] ALT [Catalytic activity/Vol] 32 U/L 7 - 38 U/L [facility] Anion gap [Moles/Vol] 9 mmol/L 9 - 18 mmol/L [facility] AST [Catalytic activity/Vol] 16 U/L 13 - 35 U/L [facility] Bilirubin [Mass/Vol] 0.3 mg/dL 0.2 - 1 .3 mg/dL [facility] Calcium [Mass/Vol] 8.6 mg/dL 8.5 - 10. 2 mg/dL [facility] Chloride [Moles/Vol] 98 mmol/L 97 - 10 5 mmol/L [facility] CO2 [Moles/Vol] 25 mmol/L 22 - 30 mmol/L [facility] Creatinine [Mass/Vol] 0.65 mg/dL 0.58 - 0.96 mg/dL [facility] Estimated Glomerular Filtration Rate 118 mL/min/1.73m >=60 mL/min/1.7 3m [facility] Glucose [Mass/Vol] 107 mg/dL High 74 - 99 mg/dL [facility] Potassium [Moles/Vol] 4.2 mmol/L 3.7 - 5.1 mmol/L [facility] Protein [Mass/Vol] 7.1 g/dL 6.3 - 8.0 g/dL [facility] Sodium [Moles/Vol] 132 mmol/L Low 136 - 144 mmol/L [facility] Urea nitrogen [Mass/Vol] 17 mg/dL 7 - 21 mg/dL [facility] Cyclic citrullinated peptide IgG Qnon 08-20-2022 [facility] ANTIBODY IGG QUALITATIVE Negative Normal Negative [facility] Comment on above: Order Comment: Speci men Type: BLOOD SPECIMENOrdering Facility: [facility] Address: [address] [phone] Performed By: #### 3 3927-7, 88897-7 ####[facility] [id number] [place] [address] [place] ESR Westergren method (Bld) [Velocity]on 08-20-2022 ESR (Bld) [Velocity] 10 mm/h Normal 0-20 [facility] Comment on above: Order Comment: Speci men Type: BLOOD SPECIMEN Ordering Facility: [facility] Address: [address] [address] Performed By: #### 4 537-7 #### [facility] CLIA [id number] [address] [place] [address] [place] Rheumatoid fact SerPl-aCncon 08-20-2022 Rheumatoid factor Qn [IU]/mL Normal <16 [facility] Comment on above: Order Comment: Speci men Type: BLOOD SPECIMEN Ordering Facility: [facility] Address: [address] [address] Performed By: #### 1 1572-5 #### [facility] CLIA [id number] [address] [place] [address] [place] URIC ACID BLOODon 08-20-2022 Urate [Mass/Vol] 2.9 mg/dL 2.5 - 6.6 mg/dL [facility] Urate SerPl-mCncon Urate [Mass/Vol] 2.9 mg/dL Normal 2.5-6.6 [facility] Comment on above: Order Comment: Speci men Type: BLOOD SPECIMEN Ordering Facility: [facility] Address: [address] [id number] Performed By: #### 2 4323-8, 1987-, 308- #### [facility] CLIA [id number] [address] [place] [address] [place] XR CERVICAL 4V AP/LAT/OBLon 08-20-2022 [...] osseous abnormality. Mild degenerative changes, as described. Exhibitions Curator: [facility] Transcribe Date/Time: Aug 20 2022 11:28A Dictated by : MAXIME DEXTER MD This examination was interpreted and the report reviewed and electronically signed by: ALIZE SANCHEZ MD on Aug 20 2022 4:05PM EST [id number] Normal [facility] cCP IgG SerPl-aCncon 022 Cyclic citrullinated peptide IgG Qn <15 Normal <20 [facility] Comment on above: Order Comment: Speci tiny Type: BLOOD SPECIMENOrdering Facility: [facility] Address: [address] [place] [address] Performed By: #### 3 2677-7, 40610-5 ####[facility] LABCLIA [id number] [facility] [id number] [address] [place] dsDNA Ab Ser IA-aCncon 08-20 DNA double strand Ab IA Qn (S) <12 Normal <30 [facility] Comment on above: Order Comment: Speci men Type: BLOOD SPECIMENOrdering Facility: [facility] Address: [address] [place] [address] Result Comment: Nega tive for ds DNA Antibodies. <30 IU/mL Negative 30-74 IU/mL Equivocal >74 IU/mL Positive Performed By: #### 3 2677-7, 56289-1 ####[facility] LAB[facility]IA [id number] [place] [id number] [place] No Panel Informationon 07-20 IMPRESSION: NORMAL EXCEPT FOR MINIMAL LATERAL EPICONDYLAR ENTHESOPATHY BILATERALLY Exhibitions Curator: SHAYNE Transcribe Date/Time: Jul 20 2022 10:34A Dictated by : GERBER CASILLAS MD This examination was interpreted and the report reviewed and electronically signed by: GERBER CASILLAS MD on Jul 20 2022 10:35AM [facility] DIVISION OF RADIOLOGY Radiology Study observation (narrative) [facility] No Panel InformationOrdered By: Ccf Provider on 07-20-2022 [facility] XR Elbow - left AP and Later al and obliqueon 07-20-2022 * * *Final Report* * * DATE OF EXAM: Jul 20 2022 9:22AM LZX 5324 - XR ELBOW 3V AP/LAT/OTHER LT / PROCEDURE REASON: Pain * * * * Physician Interpretation * * * * HISTORY: Pain . tendonitis, no injury TECHNIQUE: XR ELBOW 3V AP/LAT/OTHER RT, XR ELBOW 3V AP/LAT/OTHER LT COMPARISON: None RESULT: Joint spaces and alignment normal. No evidence of a fracture. No joint effusion. Minimal enthesopathy at the lateral humeral epicondyles bilaterally. Normal soft tissues. No other significant abnormality. DIVISION OF RADIOLOGY Provider, [facility] - 07/20/2022 * * *Final Report* * * DATE OF EXAM: Jul 20 2022 9:22AM LZX 5324 - XR ELBOW 3V AP/LAT/OTHER LT / PROCEDURE REASON: Pain * * * * Physician Interpretation * * * * HISTORY: Pain . tendonitis, no injury TECHNIQUE: XR ELBOW 3V AP/LAT/OTHER RT, XR ELBOW 3V AP/LAT/OTHER LT COMPARISON: None RESULT: Joint spaces and alignment normal. No evidence of a fracture. No joint effusion. Minimal enthesopathy at the lateral humeral epicondyles bilaterally. Normal soft tissues. No other significant abnormality. IMPRESSION IMPRESSION: NORMAL EXCEPT FOR MINIMAL LATERAL EPICONDYLAR ENTHESOPATHY BILATERALLY Exhibitions Curator: SHAYNE Transcribe Date/Time: Jul 20 2022 10:34A Dictated by : GERBER CASILLAS MD This examination was interpreted and the report reviewed and electronically signed by: GERBER CASILLAS MD on Jul 20 2022 10:35AM EST [facility] XR Elbow - right AP and Late ral and obliqueon 07-20-2022 * * *Final Report* * * DATE OF EXAM: Jul 20 2022 9:22AM LZX 5325 - XR ELBOW 3V AP/LAT/OTHER RT / PROCEDURE REASON: Pain * * * * Physician Interpretation * * * * HISTORY: Pain . tendonitis, no injury TECHNIQUE: XR ELBOW 3V AP/LAT/OTHER RT, XR ELBOW 3V AP/LAT/OTHER LT COMPARISON: None RESULT: Joint spaces and alignment normal. No evidence of a fracture. No joint effusion. Minimal enthesopathy at the lateral humeral epicondyles bilaterally. Normal soft tissues. No other significant abnormality. DIVISION OF RADIOLOGY [facility]22 * * *Final Report* * * DATE OF EXAM: Jul 20 2022 9:22AM LZX 5325 - XR ELBOW 3V AP/LAT/OTHER RT / PROCEDURE REASON: Pain * * * * Physician Interpretation * * * * HISTORY: Pain . tendonitis, no injury TECHNIQUE: XR ELBOW 3V AP/LAT/OTHER RT, XR ELBOW 3V AP/LAT/OTHER LT COMPARISON: None RESULT: Joint spaces and alignment normal. No evidence of a fracture. No joint effusion. Minimal enthesopathy at the lateral humeral epicondyles bilaterally. Normal soft tissues. No other significant abnormality. IMPRESSION IMPRESSION: NORMAL EXCEPT FOR MINIMAL LATERAL EPICONDYLAR ENTHESOPATHY BILATERALLY Exhibitions Curator: SHAYNE Transcribe Date/Time: Jul 20 2022 10:34A Dictated by : GERBER CASILLAS MD This examination was interpreted and the report reviewed and electronically signed by: GERBER CASILLAS MD on Jul 20 2022 10:35AM EST [facility] PTH INTACTon 05-05-2022 PTH, Intact 13 pg/mL Critically low 15-65 [facility] Comment on above: Performed By: #### P THINT #### [facility] [address] [address] [address] Greer Nguyen VIT D 25-OH [facility] 2021 Vitamin D, 25-Hydroxy 39.4 ng/mL Normal 30.0-100.0 [facility] Comment on above: Result Comment: Sabine min D deficiency has been defined by the [place] [employer] and an Endocrine Society practice guideline as a level of serum 25-OH vitamin D less than 20 ng/mL (1,2). The Endocrine Society went on to further define vitamin D insufficiency as a level between 21 and 29 ng/mL (2). 1. IOM ([place] of Medicine). 2010. Dietary reference intakes for calcium and D. [place]: The National Academies Press. 2. Willem MF, Sadie NC, Nova SHEPARD, et al. Evaluation, treatment, and prevention of vitamin D deficiency: an Endocrine Society clinical practice guideline. JCEM. 2010; 96(7):1911-30. Performed By: #### V ITADLC #### [facility] [address] [address] [address] Greer Nguyen CALCIUMon 05-04-2022 Calcium [Mass/Vol] 8.1 mg/dL Critically low 8.5-10.1 Th [facility] Comment on above: Performed By: #### C A, TSH, LIVER, LIPID #### [facility] [address] [address] [address] Greer Nguyen CBC AUTO DIFFon 05-04-2022 BASO # 0.0 103/ul Normal 0.0-0.[address] [facility] Comment on above: Performed By: #### C BC #### [facility] [address] [place] [address] Dr. Greer Nguyen Basophils/100 WBC (Bld) 0.4 % Normal 0.2-2.[address] [facility] Comment on above: Performed By: #### C BC #### [facility] [address] [place] [address] Dr. Greer Nguyen EO # 0.1 103/ul Normal 0.0-0.[address] [facility] Comment on above: Performed By: #### C BC #### [facility] [address] [place] [address] Dr. Greer Nguyen Eosinophils/100 WBC (Bld) 0.7 % Critically low 0.9-7.0 [facility] Comment on above: Performed By: #### C BC #### [facility] [address] [place] [address] Dr. Greer Nguyen Erythrocyte distribution width (RBC) [Ratio] 13.3 % Normal 11.0-15.0 [facility] Comment on above: Performed By: #### C BC #### [facility] [address] [place] [address] Dr. Greer Nguyen Hematocrit (Bld) [Volume fraction] 36.6 % Normal 36.0-48.0 [facility] Comment on above: Performed By: #### C BC #### [facility] [address] [place] [address] Dr. Greer Nguyen Hemoglobin (Bld) [Mass/Vol] 12.1 g/dL Normal 12.0-16.[address] [facility] Comment on above: Performed By: #### C BC #### [facility] [address] [place] [address] Dr. Greer Nguyen IG # 0.01 10e3/ul Normal 0.00-0.[address] [facility] Comment on above: Performed By: #### C BC #### [facility] [address] [place] [address] Dr. Greer Nguyen IG % 0.1 % Normal 0.0-0.5 [facility] Comment on above: Performed By: #### C BC #### [facility] [address] [place] [address] Dr. Greer Nguyen LYMPH # 2.3 103/ul Normal 1.2-3.8 [facility] Comment on above: Performed By: #### C BC #### [facility] [address] [place] [address] Dr. Greer Nguyen Lymphocytes/100 WBC (Bld) 28.4 % Normal 20.5-60.0 [facility] Comment on above: Performed By: #### C BC #### [facility] [address] [place] [address] Dr. Greer Nguyen MANUAL DIFF REQ NO Normal [facility] Comment on above: Performed By: #### C BC #### [facility] [address] [place] [address] Dr. Greer Nguyen MCH (RBC) [Entitic mass] 29.4 pg Normal 26.7-34.0 [facility] Comment on above: Performed By: #### C BC #### [facility] [address] [place] [address] Dr. Greer Nguyen MCHC (RBC) [Mass/Vol] 33.1 g/dL Normal 29.9-35.[address] [facility] Comment on above: Performed By: #### C BC #### [facility] [address] [place] [address] Dr. Greer Nguyen MCV (RBC) [Entitic vol] 88.8 fL Normal 81.0-99.[address] [facility] Comment on above: Performed By: #### C BC #### [facility] [address] [place] [address] Dr. Greer Nguyen MONO # 0.5 103/ul Normal 0.3-0.[address] [facility] Comment on above: Performed By: #### C BC #### [facility] [address] [place] [address] Dr. Greer Nguyen Monocytes/100 WBC (Bld) 6.0 % Normal 1.7-12.0 [facility] Comment on above: Performed By: #### C BC #### [facility] [address] [place] [address] Dr. Greer Nguyen NEUT # 5.2 103/ul Normal 1.4-6.5 [facility] Comment on above: Performed By: #### C BC #### [facility] [address] [place] [address] Dr. Greer Nguyen Neutrophils/100 WBC (Bld) 64.4 % Normal 43.0-75.0 [facility] Comment on above: Performed By: #### C BC #### [facility] [address] [place] [address] Dr. Greer Nguyen Platelet mean volume (Bld) [Entitic vol] 8.8 fL Critically low 9.5-13.5 [facility] Comment on above: Performed By: #### C BC #### [facility] [address] [place] [address] Dr. Greer Nguyen PLT 348 103/ul Normal 150-450 [facility] Comment on above: Performed By: #### C BC #### [facility] [address] [place] [address] Dr. Greer Nguyen RBC 4.12 106/ul Critically low 4.20-5.40 [facility] Comment on above: Performed By: #### C BC #### [facility] [address] [place] [address] Dr. Greer Nguyen WBC 8.1 103/ul Normal 4.0-11.0 [facility] Comment on above: Performed By: #### C BC #### [facility] [address] [place] [address] Dr. Greer Nguyen FERRITINon 05-04-2022 Ferritin [Mass/Vol] 95.0 ng/mL Normal 6.2-137.0 [facility] Comment on above: Performed By: #### F ERR, B12FOL, FETIBC #### [facility] [address] [place] [address] Dr. Greer Nguyen GLYCOHEMOGLOBIN A1Con 2021 ADA RECOMMENDATION SEE BELOW Normal [facility] Comment on above: Result Comment: ADA RECOMMENDED LIMIT 4.0 - 6.0 ADA THERAPEUTIC TARGET < 7.0 ACTION SUGGESTED > 7.0 Performed By: #### A 1C #### [facility] [address] [address] [address] Greer Nguyen Glucose [Mass/Vol] 117 mg/dL Normal [facility] Comment on above: Performed By: #### A 1C #### [facility] [address] [address] [address] Greer Nguyen HbA1c (Bld) [Mass fraction] 5.7 % Normal 4.5-6.2 [facility] Comment on above: Performed By: #### A 1C #### [facility] [address] [address] [address] Greer Nguyen IRON AND TIBCon 05-04-2022 % SATURATION 23.2 % Normal [facility] Comment on above: Performed By: #### F ERR, B12FOL, FETIBC #### [facility] [address] [address] [address] Greer Nguyen Iron [Mass/Vol] 63.0 ug/dL Normal 50.0-170.0 [facility] Comment on above: Performed By: #### F ERR, B12FOL, FETIBC #### [facility] [address] [address] [address] Greer Nguyen TIBC DIRECT 271.0 ug/dL Normal 250.0-450. 0 [facility] Comment on above: Performed By: #### F ERR, B12FOL, FETIBC #### [facility] [address] [address] [address] Greer Nguyen LIPID PROFILEon 05-04-2022 CHOL-HDL RATIO NORM SEE BELOW Normal [facility] Comment on above: Result Comment: 3.3 - 4.4 LOW RISK 4.4 - 7.1 AVERAGE RISK 7.1 - 11.0 MODERATE RISK >11.0 HIGH RISK Performed By: #### C A, TSH, LIVER, LIPID #### [facility] [address] [address] [address] Greer Nguyen Cholesterol [Mass/Vol] 144 mg/dL Normal <=[address] [facility] Comment on above: Performed By: #### C A, TSH, LIVER, LIPID #### [facility] [address] [address] [address] Greer Nguyen Cholesterol in HDL [Mass/Vol] 45 mg/dL Normal 40-[address] [facility] Comment on above: Performed By: #### C A, TSH, LIVER, LIPID #### [facility] [address] [address] [address] Greer Nguyen Cholesterol in LDL [Mass/Vol] 92.8 mg/dL Normal [facility] Comment on above: Performed By: #### C A, TSH, LIVER, LIPID #### [facility] [address] [address] [address] Greer Nguyen Cholesterol.total/Ch olesterol in HDL [Mass ratio] 3.2 {ratio} Normal [facility] Comment on above: Performed By: #### C A, TSH, LIVER, LIPID #### [facility] [address] [address] [address] Greer Nguyen HDL NORMAL > or = 60 mg/dl - LO W CARDIOVASCULAR RISK <40 mg/dl - HIGH CARDIOVASCULAR RISK Normal [facility] Comment on above: Performed By: #### C A, TSH, LIVER, LIPID #### [facility] [address] [address] [address] Greer Nguyen LDL CALC NORMAL SEE BELOW Normal [facility] Comment on above: Result Comment: <100 mg/dl OPTIMAL 100 - 129 mg/dl NEAR OR ABOVE OPTIMAL 130 - 159 mg/dl BORDERLINE HIGH 160 - 189 mg/dl HIGH >190 mg/dl VERY HIGH Performed By: #### C A, TSH, LIVER, LIPID #### [facility] [address] [address] [address] Greer Nguyen Triglyceride [Mass/Vol] 31 mg/dL Normal <=[address] [facility] Comment on above: Performed By: #### C A, TSH, LIVER, LIPID #### [facility] [address] [address] [address] Greer Nguyen VLDL CALC 6.2 mg/dL Normal [facility] Comment on above: Performed By: #### C A, TSH, LIVER, LIPID #### [facility] [address] [address] [address] Greer Nguyen LIVER PROFILEon 05-04-2022 Albumin [Mass/Vol] 3.2 g/dL Critically low 3.4-5.0 Th [facility] Comment on above: Performed By: #### C A, TSH, LIVER, LIPID #### [facility] [address] [address] [address] Greer Nguyen Albumin/Globulin [Mass ratio] 0.9 {ratio} Normal [facility] Comment on above: Performed By: #### C A, TSH, LIVER, LIPID #### [facility] [address] [place] [address] Dr. Greer Nguyen ALP [Catalytic activity/Vol] 91 U/L Normal 46-116 [facility] Comment on above: Performed By: #### C A, TSH, LIVER, LIPID #### [facility] [address] [place] [address] Dr. Greer Nguyen ALT [Catalytic activity/Vol] 31 U/L Normal 14-59 [facility] Comment on above: Performed By: #### C A, TSH, LIVER, LIPID #### [facility] [address] [place] [address] Dr. Greer Nguyen AST [Catalytic activity/Vol] 14 U/L Critically low 15-37 [facility] Comment on above: Performed By: #### C A, TSH, LIVER, LIPID #### [facility] [address] [place] [address] Dr. Greer Nguyen BILI, CONJUGATED 0.1 mg/dL Normal 0.0-0.2 [facility] Comment on above: Performed By: #### C A, TSH, LIVER, LIPID #### [facility] [address] [place] [address] Dr. Greer Nguyen Bilirubin [Mass/Vol] 0.2 mg/dL Normal 0.2-1.0 [facility] Comment on above: Performed By: #### C A, TSH, LIVER, LIPID #### [facility] [address] [address] [address] Greer Nguyen Globulin (S) [Mass/Vol] 3.7 g/dL Normal [facility] Comment on above: Performed By: #### C A, TSH, LIVER, LIPID #### [facility] [address] [address] [address] Greer Nguyen Protein [Mass/Vol] 6.9 g/dL Normal 6.4-8.2 [facility] Comment on above: Performed By: #### C A, TSH, LIVER, LIPID #### [facility] [address] [place] [address] Dr. Greer Nguyen TSHon 05-04-2022 TSH 1.744 uIU/mL Normal 0.358-3.74 0 [facility] Comment on above: Performed By: #### C A, TSH, LIVER, LIPID #### [facility] [address] [place] [address] Dr. Greer Nguyen VIT B12 AND FOLATEon 022 Cobalamin (Vitamin B12) [Mass/Vol] 893.0 pg/mL Normal 193.0-986. 0 [facility] Comment on above: Performed By: #### C A, TSH, LIVER, LIPID #### [facility] [address] [place] [address] Dr. Greer Nguyen FOLATE 23.40 ng/mL Normal 8.60-58.90 [facility] Comment on above: Performed By: #### C A, TSH, LIVER, LIPID #### [facility] [address] [place] [address] Dr. Greer Nguyen HCG ( test) IA.rapi d Ql (U)Ordered By: Ed Malhotra on 04-17-2022 HCG ( test) Ql (U) Negative [facility] HCG ( test) IA.rapi d Ql (U)Ordered By: Ed Malhotra on 03-13-2022 HCG ( test) Ql (U) Negative [facility] XR hip BI w [id number] 11-17-19 XR hip BI w PEL1V [facility] [employer] Other XR hip BI w PEL1V [facility] [place] [address] [facility] [employer] Other XR hip BI w PEL1V [address] [facility] [employer] Other XR hip [place] [address] [employer] Other XR hip BI w PEL1V [employer] Other XR hip BI w PEL1V Signed [facility] [employer] Other XR hip BI w PEL1V Patient: Michelle Carter MR#: [id number] [employer] Other XR hip BI w PEL1V [address] [facility] [employer] Other XR hip BI w PEL1V : 1985 Acct:[id number] [employer] Other XR hip BI w PEL1V Age/Sex: 36 / F ADM Date: 11/16/21 [employer] Other XR hip BI w PEL1V Loc: SOXD Room: Type : [facility] [employer] Other XR hip BI w PEL1V Attending Dr: Ed Malhotra MD [employer] Other XR hip BI w PEL1V Ordering Provider: Candis Malhotra MD [employer] Other XR hip BI w PEL1V Date of Service: 11/16/21 [employer] Other XR hip BI w PEL1V [id number]) XR/XR hip BI w PEL1V: Hip pain [employer] Other XR hip BI w PEL1V Copies to: Ed Malhotra MD [employer] Other XR hip BI w PEL1V Low pelvis and bilat eral hips 11/16/2021. [employer] Other XR hip BI w PEL1V CLINICAL DATA: Long history of bilateral hip pain. [employer] Other XR hip BI w PEL1V FINDINGS: An AP view of both hips was obtained along with separate lateral views of each of the [employer] Other XR hip BI w PEL1V right and left hips for a total of 3 images. [employer] Other XR hip BI w PEL1V No acute fracture or dislocation is identified. No significant degenerative or other arthritic [employer] Other XR hip BI w PEL1V changes are seen. No bony erosion or destruction is visualized. [employer] Other XR hip BI w PEL1V X R/XR hip BI w PEL1V [employer] Other XR hip BI w PEL1V IMPRESSION: No bony abnormality. [employer] Other XR hip BI w PEL1V Impression dictated by: Libia King Jr., M.D.11/16/2021 12:22 PM [employer] Other XR hip BI w PEL1V Dictation Location: [place] [address] [employer] Other XR hip BI w PEL1V Transcribed By: CHIKI 11/16/21 1222 [employer] Other XR hip BI w PEL1V Dictated By: Libia King Jr, MD 11/16/21 [facility] [employer] Other XR hip BI w PEL1V Signed By: [employer] Other XR hip BI w PEL1V 11/16/21 [facility] [employer] [facility] Other Dietition Noteon 10-25-2021 Dietition Note Chief [...] MG/DOSE) 2 MG/1.5ML Subcutaneous Solution Pen-injector; Therapy: 04Oct2021 to Recorded Dispense: 0 Days ; #: Sufficient X 1.5 ML Pen; Refill: 0;For: Health Maintenance; LAUREL = N; Record; Last Updated By: Nicol Padilla; 10/04/2021 11:24:08 AM Topamax 100 MG Oral Tablet (Topiramate); Therapy: [id number] to Recorded Dispense: 0 Days ; #: [...] understanding o (more content not included)... Normal [facility] Dietition Noteon 08-23-2021 Dietition Note Chief Complaint [...] Aug 23 2021 1:24PM EST (Author) Normal [facility] Dietition Noteon 07-07-2021 Dietition Note Chief Complaint [...] plans into her daily meal pattern. Ms. Carter (more content not included)... Normal [facility] Dietition Noteon 06-06-2021 Dietition Note Chief Complaint [...] eating habits (more content not included)... Normal [facility] Dietition Noteon 04-28-2021 Dietition Note Chief Complaint [...] 1 TABLET 3 TIMES DAILY NEEDED; Therapy: [id number] to Recorded Dispense: 0 Days ; #: [...] Release; Take 1 tablet twice daily; Therapy: [id number] to Recorded Dispense: 0 Days ; #: Sufficient Tablet; Refill: 0;For: GERD (gastroesophageal reflux disease); LAUREL = N; Record; Last Updated By: Dionna Easton; 04/20/2021 4:14:36 PM Pepcid 20 MG Oral Tablet; TAKE 1 TABLET TWICE DAILY; Therapy: [id number] to Recorded Dispense: 0 Days ; #: Sufficient Tablet; Refill: 0;For: GERD (gastroesophageal reflux disease); LAUREL = N; Record; Last Updated By: Dionna Easton; 04/20/2021 4:14:36 PM Topamax 50 MG Oral Tablet; TAKE 1 TABLET DAILY; Therapy: [id number] to Recorded Dispense: 0 Days ; #: [...] phone d/ (more content not included)... Normal [facility] Bariatric Surgery - Initialo n 04-27-2021 Bariatric [...] day smoker Tobacco Use Screening; Status:Complete; Done: [id number] Patient Discussion/Summary The following are some lifestyle [...] sensitivity she was planning to see her paving rammer for this I agree that she should visit with them. Chief Complaint The patient is being seen initial visit. An interactive audio and video telecommunication system which permits real time communications between the patient (at the originating site) and provider (at the distant site) was utilized to provide this telehealth service. Verbal consent was requested and obtained from MICHELLE RAUL on this date, 04/27/2021 08:30 AM , for a telehealth visit. Adult Risk Screening There are spiritual/cultural practices/values/needs that are important to know: Yarsanism Initial Fall Ris (more content not included)... Normal [employer] ANTINUCLEAR ANTIBODYon 01-22 ANTINUCLEAR ANTIBODY Negative Normal NEGATIVE [facility] Comment on above: Performed By: #### A NA ####[facility] [place] [address] CITRULLINE ANTIBODYon 2017 CITRULLINE ANTIBODY <1 Normal [facility] Comment on above: Result Comment: THE TEST FOR ANTIBODIES SPECIFIC FOR CYCLICCITRULLINATED PEPTIDE (CCP) HAS SHOWN TO BEVALUABLE IN THE DIAGNOSIS OF RHEUMATOIDARTHRITIS. THE DIAGNOSTIC VALUE OFANTIBODIES TO CCP IN JUVENILE RHEUMATOIDARTHRITIS PATIENTS HAS NOT BEEN DETERMINED.ANTIBODIES TO CENTROMERE OR SS-A AND MYELOMAIGG MAY BE REACTIVE IN THIS ASSAY. REF VALUES NEGATIVE < 3 U/ML POSITIVE >=3 U/ML Performed By: #### C ITAB ####[facility] [place] [address] HLA-B27 TYPINGon 01-22-2018 HLA-B27 TYPING Negative Normal [facility] Comment on above: Result Comment: This test was developed without FDA review. The test performancecharacteristics were defined and validated by the [facility] Laboratory[facility] Path[facility], under the accreditation guidelines of ALEJANDRINA. Performed By: #### H LB27 ####[facility] [place] [address] C-REACTIVE PROTEINon 018 C reactive protein (CRP) 0.34 mg/dL Normal [facility] [place] Comment on above: Result Comment: REF VALUE< 1.00 Performed By: #### C RP ####[facility] [place] [address] RHEUMATOID FACTORon 01-22-20 18 RHEUMATOID FACTOR <10 Normal 0 - 15 [facility] Comment on above: Performed By: #### R F ####[facility] [place] [address] SEDIMENTATION RATE, ERYTHROC YTEon 01-21-2018 SEDIMENTATION RATE, ERYTHROCYTE 11 mm/h Normal 0 - 20 [facility] [place] Comment on above: Performed By: #### E SRWS ####[facility] [place] [address] No Panel Information [facility] Vital Signs Date Time Vital Sign Value Performing Clinician Facility 11-28-2023 11:03040 Body height 165.1 cm Rivka Koenig APRN-DAIRY PROCESSING EQUIPMENT OPERATOR Work Phone: [facility] 11-28-2023 11:03-0400 Body mass index (BMI) [Ratio] 24.46 kg/m2 Rivka Koenig DRIVEMATIC MACHINE OPERATOR-DAIRY PROCESSING EQUIPMENT OPERATOR Work Phone: [facility] 11-28-2023 11:03-040 Body temperature 97.81 [degF] Rivka Koenig DRIVEMATIC MACHINE OPERATOR-DAIRY PROCESSING EQUIPMENT OPERATOR Work Phone: [facility] 11-28-2023 11:03-0400 Body weight 66.68 kg Rivka Koenig DRIVEMATIC MACHINE OPERATOR-DAIRY PROCESSING EQUIPMENT OPERATOR Work Phone: [facility] 11-28-2023 11:03-0400 Diastolic blood pressure 78 mm[Hg] Rivka Koenig DRIVEMATIC MACHINE OPERATOR-DAIRY PROCESSING EQUIPMENT OPERATOR Work Phone: [facility] 11-28-2023 11:03-0400 Heart rate 76 /min Rivka Koenig DRIVEMATIC MACHINE OPERATOR-DAIRY PROCESSING EQUIPMENT OPERATOR Work Phone: [facility] 11-28-2023 11:03-0400 SaO2% (BldA) [Mass fraction] 97 % Rivka Koenig DRIVEMATIC MACHINE OPERATOR-DAIRY PROCESSING EQUIPMENT OPERATOR Work Phone: [facility] 11-28-2023 11:03-0400 Systolic blood pressure 118 mm[Hg] Rivka Koenig DRIVEMATIC MACHINE OPERATOR-DAIRY PROCESSING EQUIPMENT OPERATOR Work Phone: [facility] 11-28-2023 08:55-0400 Body height 165.1 cm Nichol Barrett MD Work Phone: [facility] 11-28-2023 08:55-0400 Body mass index (BMI) [Ratio] 24.11 kg/m2 Nichol Barrett MD Work Phone: [facility] 11-28-2023 08:55-0400 Body weight 65.73 kg Nichol Barrett MD Work Phone: [facility] 11-28-2023 08:55-0400 Diastolic blood pressure 74 mm[Hg] Nichol Barrett MD Work Phone: [facility] 11-28-2023 08:55-0400 Heart rate 65 /min Nichol Barrett MD Work Phone: [facility] 11-28-2023 08:55-0400 Systolic blood pressure 119 mm[Hg] Nichol Barrett MD Work Phone: [facility] 11-11-2023 11:26-0400 Body height 166.37 cm DYLAN Pinto Work Phone: [facility] 11-11-2023 11:26-0400 Body mass index (BMI) [Ratio] 23.7 kg/m2 DYLAN Pinto Work Phone: [facility] 11-11-2023 11:26-0400 Body temperature 98.2 [degF] DYLAN Pinto Work Phone: [facility] 11-11-2023 11:26-0400 Body weight 65.77 kg DYLAN Pinto Work Phone: [facility] 11-11-2023 11:26-0400 Heart rate 66 /min DYLAN Pinto Work Phone: [facility] 11-11-2023 11:26-0400 Respiratory rate 16 /min DYLAN Pinto Work Phone: [facility] 11-11-2023 11:26-0400 SaO2% (BldA) [Mass fraction] 97 % DYLAN Pinto Work Phone: [facility] 08-29-2023 08:01-0500 Body mass index (BMI) [Ratio] 25.19 kg/m2 Rivka Koenig DRIVEMATIC MACHINE OPERATOR-DAIRY PROCESSING EQUIPMENT OPERATOR Work Phone: [facility] [employer] [facility] 08-29-2023 08:01-0500 Body temperature 98.01 [degF] Rivka Koenig DRIVEMATIC MACHINE OPERATOR-DAIRY PROCESSING EQUIPMENT OPERATOR Work Phone: [facility] [employer] [facility] 08-29-2023 08:01-0500 Body weight 68.67 kg Rivka Koenig DRIVEMATIC MACHINE OPERATOR-DAIRY PROCESSING EQUIPMENT OPERATOR Work Phone: [facility] [employer] [facility] 08-29-2023 08:01-0500 Diastolic blood pressure 54 mm[Hg] Rivka Koenig DRIVEMATIC MACHINE OPERATOR-DAIRY PROCESSING EQUIPMENT OPERATOR Work Phone: [facility] [employer] [facility] 08-29-2023 08:01-0500 Heart rate 86 /min Rivka Koenig DRIVEMATIC MACHINE OPERATOR-DAIRY PROCESSING EQUIPMENT OPERATOR Work Phone: [facility] [employer] [facility] 08-29-2023 08:01-0500 SaO2% (BldA) [Mass fraction] 98 % Rivka Koenig DRIVEMATIC MACHINE OPERATOR-DAIRY PROCESSING EQUIPMENT OPERATOR Work Phone: [facility] [employer] [facility] 08-29-2023 08:01-0500 Systolic blood pressure 102 mm[Hg] Rivkasanaz Koenig DRIVEMATIC MACHINE OPERATOR-DAIRY PROCESSING EQUIPMENT OPERATOR Work Phone: [phone] [place] [address] 05-03-2023 09:49-0400 Body height 166.4 cm Frank Genin DO Work Phone: [facility] 05-03-2023 09:49-0400 Body weight 77.56 kg Frank Genin DO Work Phone: [facility] 02-28-2023 09:30-0400 Body height 166.37 cm Ed Felter Other [employer] Other 02-28-2023 09:30-0400 Body mass index (BMI) [Ratio] 33.1 kg/m2 Ed Felter Other [employer] Other 02-28-2023 09:30-0400 Body weight 91.63 kg Ed Felter Other [employer] Other 10-11-2022 10:30-0500 Body height 166.37 cm Ed Felter Other [employer] Other 10-11-2022 10:30-0500 Body mass index (BMI) [Ratio] 42.6 kg/m2 Ed Felter Other [employer] Other 10-11-2022 10:30-0500 Body weight 117.94 kg Ed Felter Other [employer] Other 09-17-2022 10:15-0500 Body height 166.4 cm Frank Genin DO Work Phone: [facility] 09-17-2022 10:15-0500 Body weight 117.94 kg Frank Genin DO Work Phone: [facility] 09-10-2022 10:45-0500 Body height 166.37 cm Ed Felter Other [employer] Other 09-10-2022 10:45-0500 Body mass index (BMI) [Ratio] 41.78 kg/m2 Ed Malhotra Other [employer] Other 09-10-2022 10:45-0500 Body weight 115.67 kg Ed Malhotra Other [employer] Other 08-20-2022 09:56-0500 Body height 166.4 cm Frank Genin DO Work Phone: [facility] 08-20-2022 09:56-0500 Body weight 117.94 kg Frank Genin DO Work Phone: [facility] 08-06-2022 11:15-0500 Body height 166.37 cm Ed Malhotra Other [employer] Other 04-17-2022 11:00-0400 Diastolic blood pressure 83 mm[Hg] DRIVEMATIC MACHINE OPERATORAbraham Pinto Work Phone: [facility] 04-17-2022 11:00-0400 Heart rate 72 /min DRIVEMATIC MACHINE OPERATORAbraham Pinto Work Phone: [facility] 04-17-2022 11:00-0400 Respiratory rate 20 /min DRIVEMATIC MACHINE OPERATORAbraham Pinto Work Phone: [facility] 04-17-2022 11:00-0400 SaO2% (BldA) [Mass fraction] 100 % DRIVEMATIC MACHINE OPERATORAbraham Pinto Work Phone: [facility] 04-17-2022 11:00-0400 Systolic blood pressure 153 mm[Hg] DRIVEMATIC MACHINE OPERATORAbraham Pinto Work Phone: [facility] 04-17-2022 10:22-0400 Inhaled oxygen flow rate 3 L/min DRIVEMATIC MACHINE OPERATORAbraham Pinto Work Phone: [facility] 04-17-2022 09:14-0400 Body height 166.37 cm DYLAN Pinto Work Phone: [facility] 04-17-2022 09:14-0400 Body weight 117.93 kg DRIVEMATIC MACHINE OPERATOR Vijaya Millie Work Phone: [facility] 03-19-2022 10:00-0400 Body height 166.37 cm Abundio Galdamez Other [facility] [employer] Other 03-19-2022 10:00-0400 Body mass index (BMI) [Ratio] 41.62 kg/m2 Abundio Galdamez Other [facility] [employer] Other 03-19-2022 10:00-0400 Body weight 115.21 kg Abundio Galdamez Other [facility] [employer] Other 03-13-2022 09:06-0400 Diastolic blood pressure 81 mm[Hg] DRIVEMATIC MACHINE OPERATORAbraham Pinto Work Phone: [facility] 03-13-2022 09:06-0400 Heart rate 62 /min DRIVEMATIC MACHINE OPERATORAbraham Pinto Work Phone: [facility] 03-13-2022 09:06-0400 Respiratory rate 20 /min DRIVEMATIC MACHINE OPERATORAbraham Pinto Work Phone: [facility] 03-13-2022 09:06-0400 SaO2% (BldA) [Mass fraction] 100 % DRIVEMATIC MACHINE OPERATORAbraham Pinto Work Phone: [facility] 03-13-2022 09:06-0400 Systolic blood pressure 142 mm[Hg] DRIVEMATIC MACHINE OPERATORAbraham Pinto Work Phone: [facility] 03-13-2022 08:29-0400 Inhaled oxygen flow rate 3 L/min DRIVEMATIC MACHINE OPERATORAbraham Pinto Work Phone: [facility] 03-13-2022 07:36-0400 Body height 166.37 cm DRIVEMATIC MACHINE OPERATORAbraham Pinto Work Phone: [facility] 03-13-2022 07:36-0400 Body mass index (BMI) [Ratio] 42.9 kg/m2 DYLAN Pinto Work Phone: [facility] 03-13-2022 07:36-0400 Body weight 118.84 kg DYLAN Pinto Work Phone: [facility] 10-25-2021 11:45-0500 Body height 166.37 cm Ed Malhotra Other [employer] Other 10-25-2021 11:45-0500 Body mass index (BMI) [Ratio] 41.67 kg/m2 Ed Malhotra Other [employer] Other 10-25-2021 11:45-0500 Body weight 115.35 kg Ed Malhotra Other [employer] Other 04-27-2021 08:16-0400 Body height 165.1 cm No PCP None [facility] Work Phone: 04-27-2021 08:16-0400 Body mass index (BMI) [Ratio] 40.98 kg/m2 No PCP None [facility] Work Phone: 04-27-2021 08:16-0400 Body surface area Derived from formula 2.16 m2 No PCP None [facility] [employer] Work Phone: 04-27-2021 08:16-0400 Body weight 111.7 kg No PCP None [facility] Work Phone: 04-20-2021 15:48-0400 Body height 166.37 cm No PCP None [facility] Work Phone: 04-20-2021 15:48-0400 Body mass index (BMI) [Ratio] 41.46 kg/m2 No PCP None [facility] Work Phone: 04-20-2021 15:48-0400 Body surface area Derived from formula 2.2 m2 No PCP None [facility] Work Phone: 04-20-2021 15:48-0400 Body weight 114.76 kg No PCP None [facility] Work Phone: Encounters Encounter Date Encounter Type Care Provider Facility Start: 05-28-2024 End: 05-28-2024 ambulatory Vijaya Pinto Facility:[facility] Start: 05-15-2024 ambulatory Facility:[facility] Mustafa Start: 05-14-2024 End: 05-14-2024 ambulatory KIRBY HEREDIA Not Available Start: 01-16-2024 End: 01-16-2024 ambulatory MALI MALHOTRA Not Available Start: 11-28-2023 End: 11-28-2023 ambulatory [facility] Start: 11-28-2023 End: 11-28-2023 ambulatory NICHOL BARRETT [facility] Start: 11-28-2023 End: 11-28-2023 Office outpatient visit 15 minutes Nichol Barrett MD Work Phone: [facility] Comment on above: Migraine [...] care Start: 11-25-2023 End: 11-26-2023 ambulatory AMY Jeyson [facility] Start: 11-14-2023 End: 11-14-2023 ambulatory DYLAN Pinto Work Phone: [facility] Work Phone: Start: 11-14-2023 End: 11-14-2023 Patient encounter procedure DYLAN Pinto Work Phone: [facility] Work Phone: Start: 11-11-2023 End: 11-11-2023 Patient encounter procedure DYLAN Pinto Work Phone: [facility] [place] Work Phone: Start: 08-29-2023 End: 08-30-2023 ambulatory [facility] Start: 08-29-2023 End: 08-29-2023 ambulatory [facility] Start: 08-29-2023 End: 08-29-2023 Office outpatient visit 10 minutes [facility] DRIVEMATIC MACHINE OPERATOR-DAIRY PROCESSING EQUIPMENT OPERATOR Work Phone: [facility] Comment on above: 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, sciatica laterality unspecified, unspecified back pain laterality (Primary Dx); Personal history of fibromyalgia; Polnia's disease; Postsurgical malabsorption; Drug-induced constipation; History of gastric bypass Start: 07-05-2023 Telephone encounter Frank rodriguez DO Work Phone: Orthopaedics Start: 06-06-2023 End: 06-06-2023 ambulatory FRANK NEGRON Facility:[facility] Start: 05-16-2023 End: 05-16-2023 ambulatory Ed Malhotra Other [employer] Other Start: 05-16-2023 Office outpatient vi sit 15 minutes Ed Malhotra [facility] [place] Start: 05-03-2023 End: 05-03-2023 ambulatory FRANK NEGRON Facility:[facility] Start: 05-03-2023 End: 05-03-2023 Patient encounter procedure Frank Negron DO Work Phone: Orthopaedics Comment on above: Lateral epicondyliti s of right elbow (Primary Dx) Start: 03-21-2023 End: 03-21-2023 ambulatory FRANK NEGRON Facility:[facility] Start: 03-13-2023 End: 03-13-2023 ambulatory Ed Malhotra Other [employer] Other Start: 03-13-2023 Telephone encounter [facility] Start: 03-07-2023 End: 03-07-2023 ambulatory Marlita Divencenzo OTR/L Work Phone: [facility] Comment on above: Right elbow pain (Pr imary Dx); Lateral epicondylitis of right elbow Start: 03-01-2023 End: 03-01-2023 ambulatory Marlita Divencenzo OTR/L Work Phone: [facility] Comment on above: Right elbow pain (Pr imary Dx); Lateral epicondylitis of right elbow Medical equipment sc ripts question Start: 02-28-2023 End: 02-28-2023 ambulatory Frank A Genin DO Work Phone: [employer] Other Start: 02-28-2023 Office outpatient vi sit 25 minutes Ed VAZQUEZ [facility] [place] Start: 02-28-2023 Patient encounter procedure Frank A Genin DO Work Phone: Orthopaedics Comment on above: Next week off, possi ble [employer] appointment? Start: 02-28-2023 Telephone encounter [facility] Start: 02-22-2023 End: 02-22-2023 ambulatory MARLITA DIVENCENZO Facility:[facility] Start: 02-22-2023 End: 02-22-2023 ambulatory Marlita Divencenzo OTR/L Work Phone: [facility] Comment on above: Right elbow pain (Pr imary Dx); Lateral epicondylitis of right elbow Start: 02-14-2023 End: 02-14-2023 ambulatory FRANK A GENIN Facility:[facility] Start: 02-14-2023 End: 02-14-2023 Office outpatient visit 25 minutes Frank A Genin DO Work Phone: Orthopaedics Comment on above: Right elbow pain (Pr imary Dx); Lateral epicondylitis of right elbow Start: 01-24-2023 Telephone encounter Frank rodriguez DO Work Phone: [facility] Comment on above: Orders Start: 01-10-2023 End: 01-10-2023 ambulatory Ed Malhotra Other [employer] Other Start: 01-10-2023 Telephone encounter [facility] Start: 12-20-2022 End: 12-20-2022 ambulatory FRANK NEGRON Facility:[facility] Start: 12-20-2022 End: 12-20-2022 Patient encounter procedure Frank Negron DO Work Phone: Orthopaedics Comment on above: Right elbow pain (Pr imary Dx); Lateral epicondylitis of both elbows Start: 12-06-2022 ambulatory [facility] Provider Cami pacheco Comment on above: PRP injection - Righ t elbow - with Dr. Negron Start: 12-06-2022 E-mail encounter fro m caregiver [facility] Provider LIBIA ALSTON [facility] Start: 12-04-2022 End: 12-04-2022 ambulatory FRANK NEGRON Facility:[facility] Start: 12-04-2022 End: 12-04-2022 Office outpatient visit 25 minutes Frank Negron DO Work Phone: [facility] Comment on above: Lateral epicondyliti s of both elbows (Primary Dx); Left elbow pain Start: 11-16-2022 End: 11-16-2022 ambulatory FRANK NEGRON Facility:[facility] Start: 10-18-2022 ambulatory ED MALHOTRA Facility: Start: 10-12-2022 End: 10-12-2022 ambulatory Ed Malhotra Other [employer] Other Start: 10-12-2022 Telephone encounter [facility] Start: 10-11-2022 End: 10-11-2022 ambulatory Ed Malhotra Other [employer] Other Start: 10-11-2022 Office outpatient vi sit 25 minutes Ed Malhotra [facility] [place] Start: 09-17-2022 Telephone encounter Xander L[facility]pez [facility] Comment on above: Appointment Start: 09-17-2022 End: 09-17-2022 ambulatory FRANK NEGRON Facility:[facility] Start: 09-17-2022 End: 09-17-2022 Patient encounter procedure Frank Negron DO Work Phone: Orthopaedics Comment on above: Lateral epicondyliti s of both elbows (Primary Dx); Left elbow pain; Right elbow pain; Fibromyalgia Start: 09-11-2022 End: 09-11-2022 ambulatory Austin Christine RT(R) Radiology Comment on above: Radiology MRI Start: 09-11-2022 Patient encounter procedure Austin Christine RT(R) [facility]TH [facility] Start: 09-11-2022 End: 09-11-2022 Subsequent hospital visit by physician [facility] (1.5t) Work Phone: Radiology Comment on above: Lateral epicondyliti s of both elbows [M77.11, M77.12] Start: 09-10-2022 End: 09-10-2022 ambulatory Ed Malhotra Other [employer] Other Start: 09-10-2022 Office outpatient vi sit 15 minutes Ed Malhotra [facility] [place] Start: 08-20-2022 End: 08-21-2022 ambulatory FRANK NEGRON Facility:[facility] Start: 08-20-2022 End: 08-20-2022 Patient encounter procedure Frank Negron DO Work Phone: Orthopaedics Comment on above: Left elbow pain (Rylee kristina Dx); Lateral epicondylitis of both elbows; Right elbow pain; Fibromyalgia; Anxiety; Sleep apnea, unspecified type; Cervicalgia Start: 08-06-2022 End: 08-06-2022 ambulatory Ed Malhotra Other [employer] Other Start: 08-06-2022 Office outpatient vi sit 25 minutes Ed Malhotra [facility] [place] Start: 07-20-2022 End: 07-20-2022 Patient encounter procedure Libia Gomez DO Work Phone: Orthopaedics Comment on above: Lateral epicondyliti s of both elbows (Primary Dx) Start: 07-20-2022 End: 07-20-2022 Subsequent hospital visit by physician Carolyn Pettit 1 Work Phone: Radiology Comment on above: Pain [R52] Start: 06-25-2022 End: 06-25-2022 ambulatory Ed Danienils Other [employer] Other Start: 06-25-2022 Telephone encounter Ed [facility] Start: 05-14-2022 (Procedure) Short Ed Malhotra [facility] Start: 05-14-2022 End: 05-14-2022 ambulatory Ed Malhotra Other [employer] Other Start: 05-04-2022 End: 05-05-[address] [facility] Facility: Start: 04-30-2022 End: 04-30-2022 ambulatory Delia Allen Other [employer] Other Start: 04-30-2022 Telephone encounter Delia Allen [facility] Start: 04-24-2022 End: 04-24-2022 ambulatory Ed Malhotra Other [employer] Other Start: 04-24-2022 Office outpatient vi sit 25 minutes Ed Malhotra [facility] [place] Start: 04-17-2022 End: 04-17-2022 Admission to same day surgery center DYLAN Pinto Work Phone: [facility] Start: 03-27-2022 End: 03-27-2022 ambulatory Ed Malhotra Other [employer] Other Start: 03-27-2022 Office outpatient vi sit 25 minutes Ed Malhotra [facility] [place] Start: 03-21-2022 End: 03-21-2022 ambulatory Delia Allen Other [employer] Other Start: 03-21-2022 Telephone encounter Delia Allen [facility] Start: 03-19-2022 End: 03-19-2022 ambulatory Abundio Galdamez Other [employer] Other Start: 03-19-2022 Office outpatient vi sit 15 minutes Abundio Galdamez [facility] Start: 03-13-2022 (Procedure) Short Ed Malhotra [facility] Start: 03-13-2022 End: 03-13-2022 ambulatory Ed Danienils Other [employer] Other Start: 03-13-2022 End: 03-13-2022 Admission to same day surgery center DYLAN Pinto Work Phone: [facility] Start: 01-15-2022 End: 01-15-2022 ambulatory Ed Danienils Other [employer] Other Start: 01-15-2022 Telephone encounter Ed Malhotra [facility] Start: 12-28-2021 End: 12-28-2021 ambulatory Ed Danienils Other [employer] Other Start: 12-28-2021 Office outpatient vi sit 25 minutes Ed Malhotra [facility] [place] Start: 11-16-2021 End: 11-16-2021 ambulatory Ed Danienils Other [employer] Other Start: 11-16-2021 Office outpatient vi sit 25 minutes Ed Malhotra [facility] [place] Start: 11-07-2021 (Procedure) Marvin Malhotra [facility] Start: 11-07-2021 End: 11-07-2021 ambulatory Ed Malhotra Other [employer] Other Start: 10-25-2021 Patient encounter procedure No PCP None [facility] Work Phone: Start: 10-25-2021 End: 10-25-2021 ambulatory Ed Malhotra Other [employer] Other Start: 10-25-2021 Office outpatient vi sit 25 minutes Ed Malhotra [facility] [place] Start: 10-17-2021 (Procedure) Short Ed Malhotra [facility] Start: 10-17-2021 End: 10-17-2021 ambulatory Ed Malhotra Other [employer] Other Start: 09-26-2021 End: 09-26-2021 ambulatory Ed Malhotra Other [employer] Other Start: 09-26-2021 Telephone encounter Ed Danienils [facility] Start: 09-14-2021 End: 09-14-2021 ambulatory Ed Danienils Other [employer] Other Start: 09-14-2021 Office consultation new/estab patient 60 min Ed Malhotra [facility] [place] Start: 08-16-2021 AUDIT No PCP None [facility] DO Work Phone: Start: 06-06-2021 Patient encounter procedure No PCP None [facility] Work Phone: Start: 04-28-2021 Patient encounter procedure No PCP None [facility] Work Phone: Start: 04-28-2021 YULIANA, Provider : Allyn Mcdaniels, Status: Pen, Time: 9:30 AM No PCP None [facility] Work Phone: Start: 04-27-2021 Office outpatient ne w 45 minutes No PCP None [facility] Work Phone: Start: 04-21-2021 Chart Update No PCP None [facility] Work Phone: Start: 04-20-2021 AUDIT No PCP None [facility] Work Phone: Procedures Date Procedure Procedure Detail Performing Clinician Start: 11-14-2023 Plain X-ray of right hip DYLAN Pinto Work Phone: Start: 11-14-2023 X-ray of lumbar spin e, four views DYLAN Pinto Work Phone: Start: 11-11-2023 Quick Strep (POC) DYLAN Pinto Work Phone: Start: 08-29-2023 Follow-up visit Follow-up NELIA KOENIG Start: 05-03-2023 End: 05-03-2023 Us guidance needle placement img s&i Frank Negron DO Work Phone: Start: 03-04-2023 Adult depression scr eening assessment Rivka Koenig DRIVEMATIC MACHINE OPERATOR-DAIRY PROCESSING EQUIPMENT OPERATOR Work Phone: Start: 02-14-2023 Us compl joint r-t w /image documentation Frank Negron DO Work Phone: Start: 12-20-2022 Njx pltlt plasma w/i mg harvest/preparation Frank Negron DO Work Phone: Start: 12-20-2022 Us compl joint r-t w /image documentation Frank Negron DO Work Phone: Start: 09-11-2022 End: 09-11-2022 Mri any jt upper extremity w/o contrast matrl Frank Negron DO Work Phone: Start: 07-20-2022 Radex elbow complete minimum 3 views Libia Gomez DO Work Phone: Start: 04-17-2022 Local anesthetic lum bar facet joint nerve block DYLAN Pinto Work Phone: Start: 03-13-2022 Epidural injection o f lumbar spine using fluoroscopic guidance DYLAN Pinto Work Phone: Start: 07-11-2021 Psychiatric diagnost ic evaluation No PCP None Tonsillectomy No PCP None Plan of Treatment Date Care Activity Detail Author Start: 11-27-2024 [facility] Start: 11-27-2024 Tobacco Screening [facility] Start: 11-26-2024 End: 11-26-2024 Calcium [Mass/volume] in Serum or Plasma Calcium Lab Routine Malnutrition following gastrointestinal surgery History of gastric bypass Postsurgical malabsorption Expected: 11/26/2024 (Approximate), Expires: 11/26/2024 [employer] Work Phone: Comment on above: Expected: 11/26/2024 (Approximate), Expires: 11/26/2024 Start: 11-26-2024 End: 11-26-2024 CBC W Auto Differential panel - Blood CBC auto differential Lab Routine Malnutrition following gastrointestinal surgery History of gastric bypass Postsurgical malabsorption Expected: 11/26/2024 (Approximate), Expires: 11/26/[address] [facility] Comment on above: Expected: 11/26/2024 (Approximate), Expires: 11/26/2024 Start: 11-26-2024 End: 11-26-2024 Copper, serum Copper, serum Lab Routine Malnutrition following gastrointestinal surgery History of gastric bypass Postsurgical malabsorption Expected: 11/26/2024 (Approximate), Expires: 11/26/[address] [facility] Comment on above: Expected: 11/26/2024 (Approximate), Expires: 11/26/2024 Start: 11-26-2024 End: 11-26-2024 Cyanocobalamin vitamin b-12 Vitamin B12 Lab Routine Malnutrition following gastrointestinal surgery History of gastric bypass Postsurgical malabsorption Expected: 11/26/2024 (Approximate), Expires: 11/26/[address] [facility] Comment on above: Expected: 11/26/2024 (Approximate), Expires: 11/26/2024 Start: 11-26-2024 End: 11-26-2024 Folate Folate Lab Routine Malnutrition following gastrointestinal surgery History of gastric bypass Postsurgical malabsorption Expected: 11/26/2024 (Approximate), Expires: 11/26/[address] [facility] Comment on above: Expected: 11/26/2024 (Approximate), Expires: 11/26/2024 Start: 11-26-2024 End: 11-26-2024 Iron [Mass/volume] in Serum or Plasma Iron Lab Routine Malnutrition following gastrointestinal surgery History of gastric bypass Postsurgical malabsorption Expected: 11/26/2024 (Approximate), Expires: 11/26/2024 [facility] Comment on above: Expected: 11/26/2024 (Approximate), Expires: 11/26/2024 Start: 11-26-2024 End: 11-26-2024 Liver panel Liver panel Lab Routine Malnutrition following gastrointestinal surgery History of gastric bypass Postsurgical malabsorption Expected: 11/26/2024 (Approximate), Expires: 11/26/2024 [facility] Comment on above: Expected: 11/26/2024 (Approximate), Expires: 11/26/2024 Start: 11-26-2024 End: 11-26-2024 Parathyroid Hormone, intact Parathyroid Hormone, intact Lab Routine Malnutrition following gastrointestinal surgery History of gastric bypass Postsurgical malabsorption Expected: 11/26/2024 (Approximate), Expires: 11/26/2024 [facility] Comment on above: Expected: 11/26/2024 (Approximate), Expires: 11/26/2024 Start: 11-26-2024 End: 11-26-2024 Thiamin Vitamin B1, whole blood Thiamin Vitamin B1, whole blood Lab Routine Malnutrition following gastrointestinal surgery History of gastric bypass Postsurgical malabsorption Expected: 11/26/2024 (Approximate), Expires: 11/26/2024 [facility] Comment on above: Expected: 11/26/2024 (Approximate), Expires: 11/26/2024 Start: 11-26-2024 End: 11-26-2024 Vitamin A (Retinol) Vitamin A (Retinol) Lab Routine Malnutrition following gastrointestinal surgery History of gastric bypass Postsurgical malabsorption Expected: 11/26/2024 (Approximate), Expires: 11/26/2024 [facility] Comment on above: Expected: 11/26/2024 (Approximate), Expires: 11/26/2024 Start: 11-26-2024 End: 11-26-2024 Vitamin D 25 hydroxy Vitamin D 25 hydroxy Lab Routine Malnutrition following gastrointestinal surgery History of gastric bypass Postsurgical malabsorption Expected: 11/26/2024 (Approximate), Expires: 11/26/2024 [facility] Comment on above: Expected: 11/26/2024 (Approximate), Expires: 11/26/2024 Start: 11-26-2024 End: 11-26-2024 Zinc Zinc Lab Routine Malnutrition following gastrointestinal surgery History of gastric bypass Postsurgical malabsorption Expected: 11/26/2024 (Approximate), Expires: 11/26/2024 [facility] Comment on above: Expected: 11/26/2024 (Approximate), Expires: 11/26/2024 Start: 11-26-2024 End: 11-26-2024 Patient encounter procedure 11/26/2024 8:30 AM EDT Office Visit [facility] [address] [place] [id number] Nichol Barrett MD [address] [facility] [address] [place] [address] Amy Chiu, PA-C [address] [facility] [address] [place] [address] [facility] Start: 08-29-2024 Adult BMI Screening Adult BMI Screen ing [facility] Start: 08-29-2024 Tobacco Screening Tobacco Screening [facility] Start: 05-28-2024 End: 05-28-2024 Patient encounter procedure 05/28/2024 8:00 AM EDT Office Visit [facility] [address] [place] [address] Rivka oKenig APRN-CNP [address] [place] [address], [place] [address] [facility] Start: 05-03-2024 Covid-19 Vaccine ( season) Covid-19 Vaccine () [facility] Start: 05-03-2024 Covid-19 Vaccine ( season) Covid-19 Vaccine ( season) [facility] Start: 05-03-2024 Influenza vaccination Influenza Vacc ine (#1) [facility] Start: 03-04-2024 Depression Screening Depression Scre ening [facility] Start: 11-28-2023 End: 11-28-2023 Patient encounter procedure 11/28/2023 11:00 AM EDT Office Visit [facility] [address] [place] [place] [address] Rivka Koenig, DRIVEMATIC MACHINE OPERATOR-DAIRY PROCESSING EQUIPMENT OPERATOR [address] [facility] [address] [place] [address] [facility] Start: 05-03-2023 Influenza vaccination C [facility] Start: 04-05-2023 Adult BMI Follow Up Plan Adult BMI F ollow Up Plan [facility] Start: 09-02-2022 DEPRESSION ASSESSMENT DEPRESSION ASS ESSMENT [facility] Start: 08-20-2022 End: 10-20-2022 25-hydroxyvitamin D3 [Mass/volume] in Serum or Plasma [facility] Work Phone: Comment on above: Expected: 08/20/2022 , Expires: 10/20/2022 Start: 08-20-2022 End: 10-20-2022 FELICIANO BY IFA WITH REFLEX [facility] Work Phone: Comment on above: Expected: 08/20/2022 , Expires: 10/20/2022 Start: 08-20-2022 End: 10-20-2022 Cyclic citrullinated peptide IgG Ab [Units/volume] in Serum or Plasma [facility] Work Phone: Comment on above: Expected: 08/20/2022 , Expires: 10/20/2022 Start: 08-20-2022 End: 10-20-2022 DNA double strand Ab [Units/volume] in Serum by Immunoassay [facility] Work Phone: Comment on above: Expected: 08/20/2022 , Expires: 10/20/2022 Start: 08-20-2022 End: 10-20-2022 Erythrocyte sedimentation rate [facility] Work Phone: Comment on above: Expected: 08/20/2022 , Expires: 10/20/2022 Start: 08-20-2022 End: 10-20-2022 Rheumatoid factor [Units/volume] in Serum or Plasma [facility] Work Phone: Comment on above: Expected: 08/20/2022 , Expires: 10/20/2022 Start: 05-03-2022 Influenza vaccination INFLUENZA (#1) [facility] Start: 04-17-2022 [facility] Work Phone: Start: 03-12-2022 [facility] Work Phone: Start: 12-14-2021 LEEANNA, Provider: Ashu Benson, Status: Pen, Time: 7:30 AM LEEANNA, Provider: Ashu Benson, Status: Pen, Time: 7:30 AM [facility] Work Phone: Start: 09-02-2021 DEPRESSION ASSESSMENT [facility] Start: 08-23-2021 KATELYNN, Provider : Allyn Mcdaniels, Status: Pen, Time: 1:00 PM ANANTFUVNEISHA, Provider: Allyn Mcdaniels, Status: Pen, Time: 1:00 PM [facility] Work Phone: Start: 07-07-2021 KATELYNN, Provider : Allyn Mcdaniels, Status: Pen, Time: 1:00 PM VIRFUJUSTIN, Provider: Allyn Mcdaniels, Status: Pen, Time: 1:00 PM [facility] Work Phone: Start: 2017 HPV TESTING HPV TESTING [facility] Start: 02-07-2008 PAP TESTING PAP TESTING [facility] Start: 02-07-2008 Screening for malign ant neoplasm of cervix [facility] Start: 2006 DTaP,Tdap and Td Vaccines (1 - Tdap) DTaP,Tdap and Td Vaccines (1 - Tdap) [facility] Start: 2006 Hepatitis B Vaccine (1 of 3 - 19+ 3-dose series) Hepatitis B Vaccine (1 of 3 - 19+ 3-dose series) [facility] Start: 2006 Urine microalbumin profile [facility] Start: 2005 Anxiety Screening Anxiety Screening [facility] Start: 2005 Depression Screening Depression Scre ening [facility] Start: 2005 HEPATITIS C SCREENING HEPATITIS C [facility] Start: 2005 Hepatitis C screening Hepatitis C [facility] Start: 2005 HIV SCREENING HIV SCREENING [place] Start: 2005 HIV screening HIV Screening [facility] Start: 1987 COVID-19 VACCINE (#1) COVID-19 VACCI NE (#1) [facility] Start: 1987 HEPATITIS B (1 of 3 - 3-dose series) HEPATITIS B (1 of 3 - 3-dose series) [facility] Start: 1987 Hepatitis B Vaccine (1 of 3 - 3-dose series) Hepatitis B Vaccine (1 of 3 - 3-dose series) [facility] End: 09-19-2023 Mri any jt upper extremity w/o contrast matrl [facility] Work Phone: Comment on above: 1 Occurrences starti ng 08/20/2022 until 09/19/2023 Patient Education [facility] Work Phone: Patient referral [facility] Work Phone: End: 09-19-2023 Radex spine cervical 4 or 5 views XR CERV OTHER 4V AP/LAT/OBL Radiology Routine Lateral epicondylitis of both elbows Left elbow pain Right elbow pain Fibromyalgia Anxiety Sleep apnea, unspecified type Cervicalgia 1 Occurrences starting 08/20/2022 until 09/19/2023 [facility] Work Phone: Comment on above: 1 Occurrences starti ng 08/20/2022 until 09/19/2023 Radex spine cervical 4 or 5 views XR CERV OTHER 4V AP/LAT/OBL Radiology Routine Lateral epicondylitis of both elbows Left elbow pain Right elbow pain Fibromyalgia Anxiety Sleep apnea, unspecified type Cervicalgia 08/20/2022 10:54 AM EST [facility] Work Phone: End: 08-29-2024 TSH with Reflex TSH with Reflex Lab Routine Polina's disease 1 Occurrences starting 08/29/2023 until 08/29/2024 [facility] Work Phone: Comment on above: 1 Occurrences starti ng 08/29/2023 until 08/29/2024 TSH with Reflex TSH with Reflex Lab Routine Polina's disease 08/29/2023 8:51 AM EST [employer] [facility] End: 10-17-2023 Us lmtd joint/oth nonvasc xtr strux r-t w/img US ELBOW LEFT Radiology Routine Lateral epicondylitis of both elbows 1 Occurrences starting 09/17/2022 until 10/17/2023 [facility] Work Phone: Comment on above: 1 Occurrences starti ng 09/17/2022 until 10/17/2023 [facility] Payers Date Payer Category Payer Self-pay [id number] 2022 Medicaid [id number] 2022 Private Health Insurance [facility] [id number] 2022-Present [phone] [address] [place] [address] [id number] 2021 Medicaid [id number] 2021 Unknown 1987 Unknown [id number] 2.16.840.1.377064.3.579. 2.593 1987 Unknown [id number] 2.16.840.1.585755.3.579. 2.593 1987 Unknown [id number] 2.16.840.1.112521.3.579. 2.1286 1987 Unknown [id number] 2.16.840.1.853875.3.579. 2.1286 1987 Unknown [id number] 2.16.840.1.099742.3.579. 2.1286 1987 Unknown [id number] 2.16.840.1.299988.3.579. 2.1286 1987 Unknown [id number] 2.16.840.1.108825.3.579. 2.1286 1987 Unknown [id number] 2.16.840.1.884627.3.579. 2.1259 1987 Unknown [id number] 2.16.840.1.168247.3.579. 2.1259 1959 Unknown [id number] 2.16.840.1.702525.19 1959 Unknown [id number] 2.16.840.1.702398.19 Unknown [employer] [id number] Unknown [id number] 2.16.840.1.434054.3.579. 2.531 Unknown [id number] 2.16.840.1.795213.3.579. 2.531 Social History Date Type Detail Facility Start: 10-13-2020 End: 12-04-2022 Current every day smoker Current every day smoker [facility] Work Phone: Start: 10-13-2020 End: 12-04-2022 Sex Assigned At [employer] Other Start: 11-07-2021 Tobacco smoking status MAIS Never smoked tobacco (finding) [facility] Start: 1987 Sex Assigned At Female [facility] Start: 1987 Sex Assigned At Not on file [facility] Start: 07-10-2022 End: 07-20-2022 Exposure to SARS-CoV-2 (event) Not sure [facility] Start: 11-21-2022 End: 12-04-2022 Tobacco smoking status NHIS Ex-smoker [facility] End: 10-31-2020 History of tobacco use Current smoker [facility] End: 10-31-2020 History of tobacco use Cigarette Smoker [facility] Start: 11-21-2022 End: 12-04-2022 Tobacco use and exposure Smokeless tobacco non-user [facility] National Score (1-10 0), lower number is lower risk 86 [facility] Start: 02-22-2023 Gender identity Identifies as female gender (finding) [facility] Start: 02-22-2023 Sexual orientation Heterosexual (finding) [facility] Start: 08-29-2023 End: 11-29-2023 Alcohol intake Current non-drinker of alcohol (finding) [facility] [facility] Start: 09-25-2022 Tobacco Comment 2-3 cigarettes a day [facility] [employer] [facility] Goals Date Patient Goal Desired Activity /State Clinical Notes 01-31-2015 to 11-28-2023 Rivka Koenig APRN-[facility] - 11/28/2023 11:00 AM Izzy Barrett MD - 11/28/2023 9:00 AM EDTAddendum Note - Perla Bajwa RN - 11/28/2023 9:00 AM EDT Note Date & Type Note Facility 11-28-2023 History of Presen t illness Narrative Subjective Patient ID: Michelle Carter is a 38 y.o. female. HPI Michelle [...] 11/28/2022 Performed by Nichol Barrett MD at [facility] RADIOFREQUENCY ABLATION NERVES Dr. Malhotra TONSILLECTOMY age [...] daily as needed (acne). DAVID Lerner 11/29/23 [id number] documented in this encounter [facility] 11-28-2023 History of Presen t illness Narrative [facility] [address] [place] [address] [place] [address] SURGICAL WEIGHT LOSS PROGRAM PROGRESS NOTE [id number] Patient: Michelle Carter Service Date: 11/28/2023 BP 119/74 Pulse 65 [...] in 1 year documented in this encounter [employer] 11-28-2023 Miscellaneous Notes Addended by: PERLA BAJWA on: 11/28/2023 10:36 AM Modules accepted: Orders documented in this encounter [facility] 11-28-2023 Note Addended by: PERLA BAJWA on: 11/28/2023 10:36 AM Modules accepted: Orders [facility] 09-05-2023 Note HNO ID: [id number] Author: MARCELINA MCMANUS OTR/L Service: ? Author Type: Occupational Therapist Type: Progress Notes Filed: 09/05/2023 12:57 Note Text: 09/05/2023 REHABILITATION AND SPORTS THERAPY OCCUPATIONAL THERAPY DISCONTINUANCE OF CARE Plan of Care Period: Start of Care Date: 02/22/23 Last Visit Date: 03/21/2023 Therapy Program: The following is a summary of the interventions provided for this episode of care; Therapeutic exercise, Manual therapy, Self-mcfp management, and Patient/Family/Caregiver Education Assessment: Based on most recent visit, patient was progressing as expected toward functional goals based on pain levels and documented subjective information on progress. Unable to formally assess goal achievement due to non-compliance with therapy plan of care. Reason for Discontinuation of Care: Patient has not returned to therapy or scheduled additional follow-up appointments. Marcelina Mcmanus, OTR/L #[id number] [facility] 08-29-2023 History of Presen t illness Narrative Subjective Patient ID: Michelle Carter is a 38 y.o. female. HPI Michelle [...] Lerner 08/29/23 0950 documented in this encounter [facility] 07-05-2023 Miscellaneous Notes I have tried to reach patient multiple times. Phone goes to [employer]. I sent 2 my chart messages. I had a spot on hold for 07/15 for quite awhile. I had to remove the hold to offer to another patient. Yamile Kaba documented in this encounter [facility] 06-06-2023 Note HNO ID: [id number] Author: Frank Ngeron, DO Service: ? Author Type: Physician Type: Progress Notes Filed: 06/06/2023 12:10 PM Note Text: [facility]CULOSKELETAL DISTANCE HEALTH TELEPHONE VISIT DOCUMENTATION NOTE This visit was performed via telephone audio only, and the patient provided consent to be evaluated and managed using this telephone encounter. CHIEF COMPLAINT (CC): Michelle Carter is a 38 year old female is [...] treatment if they present. Frank Negron D.O. [facility] [place] Team Physician, [facility] Consulting Physician, [place] Lexi Reddy, Clinical Pharmacy Technician [phone] Patient verbalizes understanding and agrees with the treatment plan as detailed above. [facility] 05-16-2023 Evaluation note Encounter Date Diagnosis [...] Above note written by Anthony Carcamo LPN, Fur Sewer. Edited and approved by Dr. Ed Malhotra MD. [employer] Other 09-01-2023 NoteHNO ID: [id number] Author: Frank Negron, DO Service: ? Author Type: Physician Type: Progress Notes Filed: 05/03/2023 10:17 AM Note Text: Lateral epicondylitis of right elbow (primary encounter diagnosis) Minimally Invasive Tenotomy Informed Consent Consent Obtained: Written [place] Protocol A moment to CARE was completed. [...] retained foreign bodies accounted for. Frank Negron [facility]09-01-2023 Instructions* Patient Instructions* Frank Negron, DO - 05/03/2023 9:51 AM EDT [facility] POST-PROCEDURE INSTRUCTIONS 1. WOUND CARE - Keep [...] Best way to connect would be via [employer] or directly call Yamile at [phone]. If unable to connect, please proceed to [...] and beyond. Thank you for choosing the [facility] Medical Orthopedic team for your care. Frank Negron D.O. Sports & Medical Orthopaedics [facility] Sports Health Team Physician, [facility] Yamile Reddy, Clinical Pharmacy Technician [phone] documented in this encounter[facility] History of Present illness Narrative* Frank Negron DO - 05/03/2023 9:50 AM EDTAssociated Order(s): Minimally Invasive Tenotomy Post-Procedure Diagnose(s): Lateral epicondylitis of right elbow Lateral epicondylitis of right elbow (primary encounter diagnosis) Minimally Invasive Tenotomy Informed Consent Consent Obtained: Written [place] Protocol A moment to CARE was completed. [...] for. Frank Negron DO documented in this encounterK[facility]-2023 NoteHNO ID: [id number] Author: Marcelina Mcmanus OTR/Emely Service: ? Author Type: Occupational Therapist Type: Progress Notes Filed: 03/21/2023 4:01 PM Note Text: Episode Visit Count: 4 Therapist That Will Accept/Oversee The Plan Of Care: OFE Mancini, T Start of Care Date: 02/22/23 Onset Date: 02/13/23 (date of script; symptom onset 2-3 year with exacerbation past year) Patient Identified by Name and Date of : Yes REHABILITATION AND SPORTS THERAPY OCCUPATIONAL THERAPY TREATMENT NOTE ASSESSMENT: Michelle Carter tolerated the session with no issues. She [...] Minutes (timed/untimed): 51 Session Start Time : 757 Session Stop Time : 847 Marcelina Mcmanus OTR/L #[id number] Miscellaneous Notes* Telephone Encounter - Leslie Sparks RN - 03/08/2023 5:19 PM EDT Please see other encounter for documentation to patient. documented in this encounterK[facility]-2023 NoteHNO ID: [id number] Author: Estephania Whitt OTR/Emely Service: ? Author Type: Occupational Therapist [...] THERAPY OCCUPATIONAL THERAPY TREATMENT NOTE ASSESSMENT: Michelle Carter tolerated is ~2-3 yrs. 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 (as noted below) *Good compliance [...] OBJECTIVE MEASURES WITH LEVEL OF FUNCTION: Female salesperson sewing machines norms: age 35-39 R: 50-99 L: 49-91 Hand Strength: Mds Manager Position 2 Hand Strength R Mds Manager Position 2 (lbs): 21 lbs (Slight increase in pain to 3/10) L Mds Manager Position 2 (lbs): 40 lbs (No increase in pain remained at 1/10) TREATMENT: Therapeutic Exercise: 1: Discussed with patient her subjective experience since last treatment and reviewed her performance and compliance with plan of care 2: AROM bilateral wrist extension/flexion stretches with elbow flexed and also slightly extended performed 3: *[place] gel ball issued to patient; instructed, performed and added to home program gentle salesperson sewing machines PREs to home program 4: *Modified IASTM utilizing the back edge of a spoon was instructed, performed and added to home program 5: Soft tissue circular massage performed Skilled Intervention: Patient was educated in proper exercise technique and purpose for exercises. Reviewed and educated patient on additions/changes for home exercise program as above (*). Home Program Assigned: 1: [place] gel ball: salesperson sewing machines and hold each effort for 2-3 seconds, [...] Treatment Time Minutes (timed/untimed): 40 [facility]E Drew [facility] History of Present illness Narrative* ANIYAH Drew - 03/07/2023 10:50 AM EDT Episode Visit Count: 3 Therapist That Will Accept/Oversee The Plan Of Care: OFE Mancini Candis Start of Care Date: 02/22/23 Onset Date: (Rx 02/13/23, symptom onset 2-3 yrs with exacerbation past year) Patient Identified by Name and Date of : Yes REHABILITATION AND SPORTS THERAPY OCCUPATIONAL THERAPY TREATMENT NOTE ASSESSMENT: Michelle Carter tolerated is ~2-3 yrs. 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: age 35-39 R: 50-99 L: 49-91 Hand Strength: Mds Manager Position 2 Hand Strength R Mds Manager Position 2 (lbs): 21 lbs (Slight increase in pain to 3/10) L Mds Manager Position 2 (lbs): 40 lbs (No increase in pain remained at 1/10) TREATMENT: Therapeutic Exercise: 1: Discussed with patient her subjective experience since last treatment and reviewed her performance and compliance with plan of care 2: AROM bilateral wrist extension/flexion stretches with elbow flexed and also slightly extended performed 3: *[place] gel ball issued to patient; instructed, performed and added to home program gentle salesperson sewing machines PREs to home program 4: *Modified IASTM utilizing the back edge of a spoon was instructed, performed and added to home program 5: Soft tissue circular massage performed Skilled Intervention: Patient was educated in proper exercise technique and purpose for exercises. Reviewed and educated patient on additions/changes for home exercise program as above (*). 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 Author Type: Occupational Therapist Type: Progress Notes Filed: 03/01/2023 9:31 AM Note Text: Episode Visit Count: 2 Therapist That Will Accept/Oversee The Plan Of Care: OFE Mancini CHT Start of Care Date: 02/22/23 Onset Date: (Rx 02/13/23, symptom onset 2-3 yrs with exacerbation past year) Patient Identified by Name and Date of : Yes REHABILITATION AND SPORTS THERAPY OCCUPATIONAL THERAPY TREATMENT NOTE ASSESSMENT: Michelle Carter tolerated the session with no issues Patient [...] more comfortable, but will try the tg Mds Manager 4.7 sleeve issued to day as an [...] status, discuss if improved fit of tg Mds Manager sleeves or if ordered alternate sleeve, discuss [...] for home exercise program as above (*). Self-Long-Term Management: 1: Reinforced modification of daily activity performance - especially during dog grooming tasks 2: Reinforced icing 3: Discussed compression sleeve options and reviewed some types available online 4: *tg Mds Manager (size 4.7 ) compression sleeve issued as [...] extremities vs. upper extremities (more content not included)...[facility]06-30-2023 History of Present illness Narrative* ANIYAH Drew - 03/01/2023 8:01 AM EDT Episode Visit Count: 2 Therapist That Will Accept/Oversee The Plan Of Care: OFE Mancini, T Start of Care Date: 02/22/23 Onset Date: (Rx 02/13/23, symptom onset 2-3 yrs with exacerbation past year) Patient Identified by Name and Date of : Yes REHABILITATION AND SPORTS THERAPY OCCUPATIONAL THERAPY TREATMENT NOTE ASSESSMENT: Michelle Carter tolerated the session with no issues Patient [...] more comfortable, but will try the tg Mds Manager 4.7 sleeve issued to day as an [...] status, discuss if improved fit of tg Mds Manager sleeves or if ordered alternate sleeve, discuss [...] for home exercise program as above (*). Self-Long-Term Management: 1: Reinforced modification of daily activity performance - especially during dog grooming tasks 2: Reinforced icing 3: Discussed compression sleeve options and reviewed some types available online 4: *tg Mds Manager (size 4.7 ) compression sleeve issued as [...] wrist flexion 3 sessions daily. 6: tg Mds Manager compression sleeve (size 4.7 ) can be utilized instead of the size F or G previously issued if less itchiness and more comfortable Billing Therapeutic Exercise Treatment Minutes: 25 Self-Care/Home Management Treatment Minutes: 30 Total Treatment Time Minutes (timed/untimed): 55 OFE Drew, CHT documented in [facility] encounterK[facility]06[facility] Evaluation note* Encounter Date Diagnosis Assessment Notes [...] note writ ten by Anthony Carcamo LPN, Fur Sewer. Edited and approved by Dr. Ed Malhotra MD. [employer] Other 06-29-2023 Evaluation note* Encounter Date Diagnosis Assessment Notes Treatment Notes Treatment Clinical Notes Jan, Lumbosacral spondylosis without myelopathy (ICD-10 - M47.817) [employer] Other 06-23-2023 NoteHNO ID: [id number] Author: LY Drew/Emely Service: ? Author Type: Occupational Therapist Type: Progress Notes Filed: 03/01/2023 9:13 AM Note Text: Episode Visit Count: 1 Therapist That Will Accept/Oversee The Plan Of Care: OFE Mancini, 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 Patient will [...] of Visits Planned: 8 Planned Treatment Interventions: Self-mcfp management (06976), Neuromuscular re-education (24328), Manual therapy (24294), Therapeutic exercise (93808), Prefabricated orthosis fitting PLAN FOR NEXT VISIT: Assess response to ice massage, use of compression sleeve, increased consistency of counterforce strap/wrist brace, reinforce body ergonomics, further assess AROM and strength as tolerated Patient demonstrates good understanding of plan of care and treatment. The above goals and plan of care were discussed and agreed upon by patient/family. SUBJECTIVE: Michelle Carter is a 38 year old female seen [...] and recently passed. 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 I [...] brace but sometimes I (more content not included)...[facility]06-[facility] History of Present illness Narrative* ANIYAH Drew - 02/22/2023 9:30 AM EDT Episode Visit Count: 1 Therapist That Will Accept/Oversee The Plan Of Care: OFE Mancini, 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 Patient will [...] of Visits Planned: 8 Planned Treatment Interventions: Self-mcfp management (05308), Neuromuscular re-education (68168), Manual therapy (36698), Therapeutic exercise (61420), Prefabricated orthosis fitting PLAN FOR NEXT VISIT: Assess response to ice massage, use of compression sleeve, increased consistency of counterforce strap/wrist brace, reinforce body ergonomics, further assess AROM and strength astolerated Patient demonstrates good understanding of plan of care and treatment. The above goals and plan of care were discussed and agreed upon by patient/family. SUBJECTIVE: Michelle Carter is a 38 year old female seen [...] and recently passed. 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 Self-Long-Term Management: 1: Body ergonomics and positioning discussed [...] 55 OFE Drew, CHT documented in this encounterK[facility]06-15-2023 NoteHNO ID: [id number] Author: Frank Negron, DO Service: ? 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 Frank Negron D.O. [facility] Orthopaedic and Rheumatologic [place] Team Physician, [facility] Consulting Physician, [place] Lexi Reddy, Clinical Pharmacy Technician [phone] History of Present illness Narrative* Frank Negron DO - 02/14/2023 11:22 AM EDT Images from the original note were not included. 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 Frank Negron D.O. [facility] Orthopaedic and Rheumatologic [place] Team Physician, [facility] Consulting Physician, [facility] Yamile Reddy, Clinical Pharmacy Technician [phone] documented in this encounterKettering [facility]06-02-2023 Miscellaneous Notes* Telephone Encounter - Lesly Sherman RN - 02/01/2023 10:42 AM EDT Sent message asking if order needed to be OT specifically. There is a valid PT order in the chart and Dr. Negron is not in the office at this time. Waiting on response. Lesly Sherman RN, BSN * Telephone Encounter - Amy Elliott Pss - 01/24/2023 10:28 AM EDT Pt requesting OT order for elbow pain. It is affecting her job. Pt would like to complete this witha facility in [place], [place]. Pt does not have the fax number but will try to get this and call us back. [place] OT phone [phone] Patient has been identified by name and birthdate. Duration of symptoms: N/A Person calling: self Call patient at: on cell [phone] (home) Was an appointment scheduled: No Closing statement: Results or non-symptom based questions: Thank you for calling [facility], your call will be returned within the next business day. Amy Wilson documented in this encounterKettering [facility]05-11-2023 Evaluation note* Encounter Date Diagnosis Assessment Notes Treatment Notes Treatment Clinical Notes December, Lumbosacral spondylosis without myelopathy (ICD-10 - M47.817) [employer] Other 04-20-2023 NoteHNO ID: [id number] Author: Frank Negron, DO Service: ? Author Type: Physician Type: Progress Notes Filed: 12/20/2022 12:52 PM Note Text: Right elbow pain (primary encounter diagnosis) Lateral epicondylitis of both elbows Biologics Injection: R elbow Previously completed treatments/injections: Platelet Rich Plasma Informed Consent Consent Obtained: Written [place] Protocol A moment to CARE was completed. [...] retained foreign bodies accounted for. Frank Negron, [facility]04-20-2023 History of Present illness Narrative* Frank Negron DO - 12/20/2022 12:29 PM EDTAssociated Order(s): Biologics Injection: R elbow Post-Procedure Diagnose(s): Right elbow pain; Lateral epicondylitis of both elbows Right elbow pain (primary encounter diagnosis) Lateral epicondylitis of both elbows Biologics Injection: R elbow Previously completed treatments/injections: Platelet Rich Plasma Informed Consent Consent Obtained: Written [place] Protocol A moment to CARE was completed. [...] for. Frank Negron DO documented in this encounterKettering [facility]04-13-2023 Miscellaneous Notes* Telephone Encounter - Therese Leblanc [...] would like someone to advise herat the [phone]. It is ok to leave a detailed VM if need Pt states she has a second # which is [phone] and that is the PT father Humphrey and you can leave a message with him as he goes to many of her appts with her. ( Per PT ) documented in this encounterKettering [facility]04-04-2023 NoteHNO ID: [id number] Author: Frank Negron, DO Service: ? Author Type: Physician Type: Progress Notes Filed: 12/04/2022 10:03 AM Note Text: [facility] Office Visit Documentation Note [facility] Sports Medicine Orthopaedic and Rheumatologic [place] HISTORY OF PRESENT ILLNESS (HPI) SERVICE DATE: December 04, 2022 PCP: No primary care provider on file. CHIEF COMPLAINT / REASON FOR VISIT Michelle Carter is a 37 year old female who [...] EXCEPT FOR MINIMAL LATERAL EPICONDYLAR ENTHESOPATHY BILATERALLY Exhibitions Curator: SHAYNE Transcribe Date/Time: Nov 18 2022 10:34A ... Last MRI Elbow - Impression Only MRI ELBOW WO IVCON RT Exam End: 09/11/2022 11:27 AM (Final result) Impression: IMPRESSION: 1. Tendinosis and a small partial tear of the common extensor tendon origin. Exhibitions Curator: SHAYNE Transcribe Date/Time: Sep 11 2022 11:42A... [...] bariatric surgery but add a topical compound DIEOG keto topically as needed. We talked about for this chronic likely chronic tear and fibrotic tissue, minimally invasive percutaneous tendon debridement should treatment above not satiate the pain Follow up: Written instructions (see patient instructions) and verbal health education given to patient. Patient verbalizes understanding and agrees with the treatment plan. Frank Negron D.O. [facility] Orthopaedic and Rheumatologic Director Of Safety And Security, Tendon Center AND T.E.A.M. Program Team Physician, [facility] [employer] Consulting Physician, [place] Lexi Reddy, Clinical Pharmacy Technician [phone] [id number] History of Present illness Narrative* Frank Negron, - 12/04/2022 9:40 AM EDT Images from the original note were not included. [facility] Office Visit Documentation Note [facility] Sports Medicine Orthopaedic and Rheumatologic [place] HISTORY OF PRESENT ILLNESS (HPI) SERVICE DATE: December 04, 2022 PCP: No primary care provider on file. CHIEF COMPLAINT / REASON FOR VISIT Michelle Carter is a 37 year old female who [...] EXCEPT FOR MINIMAL LATERAL EPICONDYLAR ENTHESOPATHY BILATERALLY Exhibitions Curator: SHAYNE Transcribe Date/Time: Jul 20 2022 10:34A ... Last MRI Elbow - Impression Only MRI ELBOW WO IVCON RT Exam End: 09/11/2022 11:27 AM (Final result) Impression: IMPRESSION: 1. Tendinosis and a small partial tear of the common extensor tendon origin. Exhibitions Curator: SHAYNE Transcribe Date/Time: Sep 11 2022 11:42A... [...] with the treatment plan. Frank Negron D.O. [facility] Orthopaedic and Rheumatologic Director Of Safety And Security, Tendon Center & T.E.A.M. Program Team Physician, [facility] [employer] Consulting Physician, [place] Lexi Reddy, Clinical Pharmacy Technician [phone] documented in this encounterKettering Health [facility]02-09-2023 Evaluation note* Encounter Date Diagnosis Assessment Notes [...] note writ ten by Amrit Vargas MA, Fur Sewer. Edited and approved by Dr. Ed Malhotra MD. [employer] Other 01-16-2023 NoteHNO ID: [id number] Author: Frank Negron, DO Service: ? Author Type: Physician Type: Progress Notes Filed: 09/17/2022 10:48 AM Note Text: [facility] Office Visit Documentation Note [facility] Sports Medicine Orthopaedic and Rheumatologic [place] HISTORY OF PRESENT ILLNESS (HPI) SERVICE DATE: September 17, 2022 PCP: No primary care provider on file. CHIEF COMPLAINT / REASON FOR VISIT Michelle Carter is a 37 year old female who [...] EXCEPT FOR MINIMAL LATERAL EPICONDYLAR ENTHESOPATHY BILATERALLY Exhibitions Curator: SHAYNE Transcribe Date/Time: Jul 20 2022 10:34A ... Last MRI Elbow - Impression Only MRI ELBOW WO IVCON RT Exam End: 09/11/2022 11:27 AM (Final result) Impression: IMPRESSION: 1. Tendinosis and a small partial tear of the common extensor tendon origin. Exhibitions Curator: SHAYNE Transcribe Date/Time: Sep 11 2022 11:42A... ASSESSMENT / PLAN CLINICAL IMPRESSION / ASSESSMENT: CLINICAL IMPRESSION / ASSESSMENT: (M77.11, M77.12) Lateral epicondylitis of both elbows (primary encounter diagnosis) (M25.522) Left elbow pain (M25.521) Right elbow pain (M79.7) Fibromyalgia RECOMMENDATION / PLAN: Counseling / Referral A total of 20 minutes were spent [id number] with the patient during this encounter and [...] include #1 bilateral PRP injections at $1500 [id number] Option #2 bilateral minimally invasive percutaneous tendon debridement Option #3 surgical consult.. Follow up: Okay to send a MyChart note on my recommendation after ultrasound of the left lateral elbow for evaluation of chronicity of common extensor tendon injury. Written instructions (see patient instructions) and verbal health education given to patient. Patient verbalizes understanding and agrees with the treatment plan. Frank Negron D.O. [facility] Orthopaedic and Rheumatologic Director Of Safety And Security, Tendon Center AND T.E.A.M. Program Team Physician, [facility] [employer] Consulting Physician, [place] Lexi Reddy, Clinical Pharmacy Technician [phone]. [facility] 09-17-2022 Miscellaneous Notes* Telephone Encounter - Keshawn Castro - 09/17/2022 11:48 AM EST Pt is scheduled for their [facility] US on 11/16 at [place]. * Telephone Encounter - Xander López - [...] locations. Slot held: N/A documented in this encounterKettering Health [facility] Campus01-16-2023 Instructions* Patient Instructions* Frank Negron DO - 09/17/2022 10:35 AM EST IMAGING & LABORATORY Dr. Negron has requested further imaging to help coordinate your individualized plan of care. Most of these images will need to be appropriately scheduled. MRI/CT/Xray : Please stop at the front end developer to coordinate timing and scheduling of your image. IF your image is completed outside of the [facility], two steps will need to be taken and presented to Dr. Negron's office for review. 1. Gather a CD copy of your image at the time of service. 2. Gather Radiology Report, when available. Reports can be faxed to [phone]. [facility] [place] Ultrasound : Please call [phone] to schedule your ultrasound appointment. LAB Requests: These can be completed at your nearest [facility] LAB facility. Please allow for up to one week for results to finalize. Follow up: You may request [employer] release of your imaging at 3 DAYS after your imaging appointment. Dr. Negron will often read the image and make a recommendation through [employer]. Please understand, that due to the complexity of the presenting issue, many patients will need a physical examination even after their imaging, which would require a follow up officeappointment. To make an appointment, please call [phone] or Request Appointment option in [employer]. Thank you. Dr. Perfecto Negron D.O. [facility] Orthopaedic and Rheumatologic [place] Team Physician, [facility] Consulting Physician, [place] Lexi Reddy, Clinical Pharmacy Technician [phone] documented in this encounterKettering Health [facility]01-16-2023 History of Present illness Narrative* Frank Negron DO - 09/17/2022 10:15 AM EST Images from the original note were not included. [facility] Office Visit Documentation Note [facility] Sports Medicine Orthopaedic and Rheumatologic [place] HISTORY OF PRESENT ILLNESS (HPI) SERVICE DATE: September 17, 2022 PCP: No primary care provider on file. CHIEF COMPLAINT / REASON FOR VISIT Michelle Carter is a 37 year old female who [...] EXCEPT FOR MINIMAL LATERAL EPICONDYLAR ENTHESOPATHY BILATERALLY Exhibitions Curator: SHAYNE Transcribe Date/Time: Jul 20 2022 10:34A ... Last MRI Elbow - Impression Only MRI ELBOW WO IVCON RT Exam End: 09/11/2022 11:27 AM (Final result) Impression: IMPRESSION: 1. Tendinosis and a small partial tear of the common extensor tendon origin. Exhibitions Curator: SHAYNE Transcribe Date/Time: Sep 11 2022 11:42A... ASSESSMENT / PLAN CLINICAL IMPRESSION / ASSESSMENT: CLINICAL IMPRESSION / ASSESSMENT: (M77.11, M77.12) Lateral epicondylitis of both elbows (primary encounter diagnosis) (M25.522) Left elbow pain (M25.521) Right elbow pain (M79.7) Fibromyalgia RECOMMENDATION / PLAN: Counseling / Referral A total of 20 minutes were spent [id number] with the patient during this encounter and [...] include #1 bilateral PRP injections at $1500 [id number] Option #2 bilateral minimally invasive percutaneous tendon debridement Option #3 surgical consult.. Follow up: Okay to send a MyChart note on my recommendation after ultrasound of the left lateral elbow for evaluation of chronicity of common extensor tendon injury. Written instructions (see patient instructions) and verbal health education given to patient. Patient verbalizes understanding and agrees with the treatment plan. Frank Negron D.O. [facility] Orthopaedic and Rheumatologic Director Of Safety And Security, Tendon Center & T.E.A.M. Program Team Physician, [facility] [employer] Consulting Physician, [place] Lexi Reddy, Clinical Pharmacy Technician [phone] documented in this encounterKettering Health [facility] Campus01-10-2023 NoteHNO ID: [id number] Author: Austin Christine RT(R) Service: ? Author Type: Technologist Type: Progress Notes Filed: 09/11/2022 11:22 AM Note Text: Radiology Service Progress Note PATIENT NAME: Michelle Carter DATE OF SERVICE: September 11, 2022 TIME: [...] BY: RT Dickson(R) September 11, 2022 11:22 [facility]01-10-2023 History of Present illness Narrative* RT Dickson(R) - 09/11/2022 11:22 AM EST Radiology Service Progress Note PATIENT NAME: Michelle Carter DATE OF SERVICE: September 11, 2022 TIME: [...] 11, 2022 11:22 AM documented in this encounterKettering Health [facility]01-09-2023 Evaluation note* Encounter Date Diagnosis Assessment Notes [...] we can consider back on trek in [place], chronic pain therapy. . Anatomy of spine discussed in detail inpatient in regard to patients condition. Sep, Lumbosacral spondylosis without myelopathy (ICD-10 - M47.817) Sep, Chronic pain (ICD-10 - G89.29) Sep, Other Above note writ ten by Anthony Carcamo LPN, Fur Sewer. Edited and approved by Dr. Ed Malhotra MD. [employer] Other 12-19-2022 NoteHNO ID: [id number] Author: RT Steve(R) Service: Radiology Author Type: Technologist Type: Progress Notes Filed: 08/20/2022 10:54 AM Note Text: Radiology Service Progress Note PATIENT NAME: Michelle Carter DATE OF SERVICE: August 20, 2022 TIME: [...] BY: RT Steve(R) August 20, 2022 10:54 AMMoab Regional [id number] History of Present illness Narrative* Frank Negron, - 08/20/2022 9:59 AM EST Images from the original note were not included. [facility] Office Visit Documentation Note [facility] Sports Medicine Orthopaedic and Rheumatologic [place] HISTORY OF PRESENT ILLNESS (HPI) CHIEF COMPLAINT / REASON FOR VISIT SERVICE DATE: August 20, 2022 PCP: No primary care provider on file. Michelel Carter is here today at request of Libia Gomez MD specifically for consultation of my opinion in regards to the chief complaint listed below. Correspondence will be shared today via the [address] record or through regular mail, where applicable. Michelle Carter is a 37 year old female who [...] EXCEPT FOR MINIMAL LATERAL EPICONDYLAR ENTHESOPATHY BILATERALLY Exhibitions Curator: SHAYNE Transcribe Date/Time: Jul 20 2022 10:34A [...] with the treatment plan. Frank Negron D.O. [facility] Orthopaedic and Rheumatologic Director Of Safety And Security, Tendon Center & T.E.A.M. Program Team Physician, [facility] [employer] Consulting Physician, [place] Lexi Reddy, Clinical Pharmacy Technician [phone] documented in this encounterKettering Health [facility]12-05-2022 Evaluation note* Encounter Date Diagnosis Assessment Notes [...] note writ ten by Anthony Carcamo LPN, Fur Sewer. Edited and approved by Dr. Ed Malhotra MD. [employer] Other 11-18-2022 History of Present illness Narrative* Libia Gomez DO - 07/20/2022 9:36 AM EST Images from [...] therapy. 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 Edited and approved by Dr. Ed Malhotra MD. [employer] Other 08-16-2022 [facility]* Encounter Date Diagnosis Assessment [...] note writ ten by Amrit Vargas MA, Fur Sewer. Edited and approved by Dr. Ed Malhotra MD. [employer] Other 07-18-2022 Evaluation note* Encounter Date Diagnosis [...] to Dr. Terrell Malhotra for possible injections. [employer] Other 04-28-2022 Evaluation note* Encounter Date Diagnosis [...] note writ ten by Amrit Vargas MA, Fur Sewer. Edited and approved by Dr. Ed Malhotra MD. [employer] Other 03-17-2022 Evaluation note* Encounter Date Diagnosis [...] note writ ten by Anthony Carcamo LPN, Fur Sewer. Edited and approved by Dr. Ed Malhotra MD. [employer] Other 02-23-2022 Evaluation note* Encounter Date Diagnosis [...] note writ ten by Amrit Vargas CMA, Fur Sewer. Edited and approved by Dr. Ed Malhotra MD. [employer] Other 01-13-2022 Evaluation note* Encounter Date Diagnosis [...] Above note written by Anthony Carcamo LPN, Fur Sewer. Edited and approved by Dr. Ed Malhotra [...] negative findings were considered in medical decision-making. [employer] Other 06-01-2015 History general Narrative - Reported* Type Description Date Medical History Back pain Medical History Polina's disease Medical History asthma Surgical History tonsillectomy 2000 Hospitalization History back pain January [employer] Other 06-01-2015 History general Narrative - Reported* Type Description Date Medical History Back pain Medical History Polina's disease Medical History asthma Surgical History tonsillectomy 2000 Surgical History gastric bypass 2022 Hospitalization History back pain January [employer] Other Evaluation noteNo [employer] Other Evaluation noteNo assessment information available [facility] Work Phone: Evaluation note* Diagnosis Lateral epicondylitis of both elbows- Primary Lateral epicondylitis of elbow documented in this encounter [place] [facility]* Diagnosis Left elbow pain- Primary Pain in joint, upper arm Lateral epicondylitis of both elbows Lateral epicondylitis of elbow Right elbow pain Pain in joint, upper arm Fibromyalgia Mylagia and myositis, unspecified Anxiety Anxiety state, unspecified Sleep apnea, unspecified type Cervicalgia documented in this encounter [place] [facility]* Diagnosis Lateral epicondylitis of both elbows- Primary Lateral epicondylitis of elbow Left elbow pain Pain in joint, upper arm Right elbow pain Pain in joint, upper arm Fibromyalgia Mylagia and myositis, unspecified [facility] Diagnosis Lateral epicondylitis of both elbows- Primary Lateral epicondylitis of elbow Left elbow pain Pain in joint, upper arm [facility] Diagnosis Right elbow pain- Primary Pain in joint, upper arm Lateral epicondylitis of both elbows Lateral epicondylitis of elbow [facility] Diagnosis Right elbow pain- Primary Pain in joint, upper arm Lateral epicondylitis of right elbow Lateral epicondylitis of elbow documented in this encounter [facility]* Diagnosis Right elbow pain- Primary Pain in joint, upper arm Lateral epicondylitis of right elbow Lateral epicondylitis of elbow documented in this encounter [facility]* Diagnosis Right elbow pain- Primary Pain in joint, upper arm Lateral epicondylitis of right elbow Lateral epicondylitis of elbow documented in this encounter [facility]* Diagnosis Right elbow pain- Primary Pain in joint, upper arm Lateral epicondylitis of right elbow Lateral epicondylitis of elbow [facility] Diagnosis Lateral epicondylitis of right elbow- Primary Lateral epicondylitis of elbow [facility] this encounter [facility]* Diagnosis Chronic low back pain with sciatica, sciatica laterality unspecified, unspecified back pain laterality- Primary Personal history of fibromyalgia Personal history of other musculoskeletal disorders Polina's disease Chronic lymphocytic thyroiditis Postsurgical malabsorption Drug-induced constipation Other constipation History of gastric bypass [facility] Diagnosis Onset Date Resolution Status Sinusitis noneactive Sore throat noneactive Arthritis of lumbosacral spine acute Chronic pain acute Right hip pain noneactive [facility] Work Phone: Evaluation note* Diagnosis Migraine with aura and without status migrainosus, not intractable- Primary Malnutrition following gastrointestinal surgery Other and unspecified postsurgical nonabsorption History of gastric bypass Postsurgical malabsorption Abdominal pannus Localized adiposity documented in this encounter [facility]* Diagnosis Acne, unspecified acne type- Primary Chronic low back pain with sciatica, sciatica laterality unspecified, unspecified back pain laterality S/P bariatric surgery History of gastric bypass Encounter to establish care documented in this encounter [facility] Diagnosis Lateral epicondylitis of both elbows Lateral epicondylitis of elbow Left elbow pain Pain in joint, upper arm Right elbow pain Pain in joint, upper arm Fibromyalgia Mylagia and myositis, unspecified Anxiety Anxiety state, unspecified Sleep apnea, unspecified type Cervicalgia documented in this encounter [facility] Pain Generalized pain [facility] Initial onset of [...] Aunt had gastric bypass. Hasn't had endoscopy. [id number] Work Phone: InstructionsNot on filedocumented in this encounter [facility] SystemInstructionsNot on filedocumented in this encounter [facility] Diagnostic Procedure Only (Routine) - Authorized Specialty Diagnoses / Procedures Referred By Contac t Referred To Contact US IMAGING Diagnoses Lateral epicondylitis of both elbows Procedures US ELBOW LEFT US LMTD JOINT/OTH NONVASC XTR STRUX R-T W/[place] [address] [place] [address] Us Imaging Referral ID Status Reason Start Date Expiration Date Visits Requested Visits Authorized [id number] Authorized Auto-Generat ed Referral 09/17/2022 10/17/2023 1 1 [facility] for referral (narrative)* Consultation (Routine) - Pending Review Specialty Diagnoses / Procedures Referred By Contact Referred To Contact Plastic & Reconstructive Surgery Diagnoses History of gastric bypass Abdominal pannus Localized adiposity Nichol Barrett MD [address] [place] [address] Andrea Ornelas MD [address] [place] [id number] Referral ID Status Reason Start Date Expiration Date Visits Requested Visits Authorized [id number] Pending Review Specialty Services Required 11/28/2023 11/27/2024 1 1 [facility] for referral (narrative)* Diagnostic Procedure Only (Routine) - Closed Specialty Diagnoses / Procedures Referred By Contac t Referred To Contact XR IMAGING Diagnoses Pain Procedures XR ELBOW SPECIAL VIEWS AP/LAT/OTHER RIGHT RADEX ELBOW COMPLETE MINIMUM 3 VIEWS Libia Gomez, [address] [place] [address] [place] [address] Referral ID Status Reason Start Date Expiration Date V isits Requested Visits Authorized [id number] Closed Auto-Generate d Referral 06/19/2022 07/19/2023 1 1 * Diagnostic Procedure Only (Routine) - Closed Specialty Diagnoses / Procedures Referred By Contac t Referred To Contact XR IMAGING Diagnoses Pain Procedures XR ELBOW SPECIAL VIEWS AP/LAT/OTHER LEFT RADEX ELBOW COMPLETE MINIMUM 3 VIEWS Libia Gomez DO [address] [place] [address] [place] [address] Referral ID Status Reason Start Date Expiration Date V isits Requested Visits Authorized [id number] Closed Auto-Generate d Referral 06/19/2022 07/19/2023 1 1 [facility] for visit NarrativeREVIEW MEDICATION MANAGEMENTNoe[facility] [employer] Other Reason for visit Narrative* Diagnostic Procedure Only (Routine) - Closed Specialty Diagnoses / Procedures Referred By Contac t Referred To Contact XR IMAGING Diagnoses Pain Procedures XR ELBOW SPECIAL VIEWS AP/LAT/OTHER RIGHT RADEX ELBOW COMPLETE MINIMUM 3 VIEWS Libia Gomez DO [address] [place] [address] [place] [address] Referral ID Status Reason Start Date Expiration Date V isits Requested Visits Authorized [id number] Closed Auto-Generate d Referral 06/19/2022 07/19/2023 1 1 [facility] Summary Purpose Family History No Family History [...] consent was requested and obtained from MICHELLE CARTER on this date, 04/27/2021 08:30 AM , [...] consent was requested and obtained from MICHELLE CARTER on this date, 07/11/2021 10:00 AM , for atelehealth visit. * Required pre-bariatric surgery evaluation * AccompaniedBy_UH: * PsychChiefComplaintFreeTextNoteForm_UH: * An interactive audio and video telecommunication system which permits real time communications between the patient (at the originating site) and provider (at the distant site) was utilized to providethis telehealth service. * Verbal consent was requested and obtained from MICHELLE CARTER on this date, 07/11/2021 10:00 AM , [...] Referral Specialty Diagnoses / Procedures Referred By Yamilaac t Referred To Contact [facility] Diagnoses Right elbow pain Lateral epicondylitis of right elbow Procedures CONSULT TO CELL TUBER MACHINE OCCUPATIONAL THERAPY EVAL HIGH COMPLEX [address] [place] [address] [place] [address] [facility] [address] [place] [address] Referral ID Status Reason Start Date Expiration Date Visits Requested Visits Authorized [id number] Authorized Auto-Generat ed Referral 09/02/2022 09/01/2023 99 99 Specialty Diagnoses / Procedures Referred By Jorge mcduffie Referred To Contact MR IMAGING Diagnoses Lateral epicondylitis of both elbows Left elbow pain Right elbow pain Fibromyalgia Anxiety Sleep apnea, unspecified type Cervicalgia Procedures MRI ELBOW WO IVCON LT MRI ANY JT UPPER EXTREMITY W/[place] [address] [place] [address] Mr Imaging Referral ID Status Reason Start Date Expiration Date Visits Requested Visits Authorized [id number] Pending Review Auto-Generat ed Referral 2 09/19/2023 1 1 Specialty Diagnoses / Procedures Referred By Jorge mcduffie Referred To Contact MR IMAGING Diagnoses Lateral epicondylitis of both elbows Left elbow pain Right elbow pain Fibromyalgia Anxiety Sleep apnea, unspecified type Cervicalgia Procedures MRI ELBOW WO IVCON RT MRI ANY JT UPPER EXTREMITY W/[place] [address] [place] [address] Mr Imaging Referral ID Status Reason Start Date Expiration Date Visits Requested Visits Authorized [id number] Pending Review Auto-Generat ed Referral 2 09/19/2023 1 1 Specialty Diagnoses / Procedures Referred By Jorge t Referred To Contact [facility] Diagnoses Lateral epicondylitis of both elbows Left elbow pain Right elbow pain Fibromyalgia Anxiety Sleep apnea, unspecified type Cervicalgia Procedures CONSULT TO PHYSICAL THERAPY PHYSICAL THERAPY EVALUATION HIGH COMPLEX [address] [place] [address] [place] [address] [facility] [address] [place] [address] Referral ID Status Reason Start Date Expiration Date Visits Requested Visits Authorized [id number] Pending Review Auto-Generat ed Referral 2 08/20/2023 1 1 Specialty Diagnoses / Procedures Referred By Contac t Referred To Contact XR IMAGING Diagnoses Lateral epicondylitis of both elbows Left elbow pain Right elbow pain Fibromyalgia Anxiety Sleep apnea, unspecified type Cervicalgia Procedures XR CERV OTHER 4V AP/LAT/OBL RADEX SPINE CERVICAL 4 [place] [address] [place] [address] [place] [address] Xr Imaging Referral ID Status Reason Start Date Expiration Date V isits Requested Visits Authorized [id number] Closed Auto-Generate d Referral 08/20/2022 09/19/2023 1 1 Specialty Diagnoses / Procedures Referred By Contac t Referred To Contact Orthopedics Diagnoses Lateral epicondylitis of both elbows Procedures CONSULT TO ORTHOPAEDICS OFFICE/OUTPATIENT [facility] 60-74 MINUTES Libia Gomez, [facility] [address] [place] [address] Referral ID Status Reason Start Date Expiration Date Visits Requested Visits Authorized [id number] Authorized PCP Requested Referral 2 07/20/2023 1 [...] section and content) DATE CREATED AUTHOR 03/06/2018 [facility] DATE CREATED AUTHOR AUTHOR'S ORGANIZ ATION 10/26/2021 [facility] DATE CREATED AUTHOR AUTHOR'S ORGANIZ ATION 08/24/2022 [facility] DATE CREATED AUTHOR AUTHOR'S ORGANIZ ATION 11/01/2022 [facility] DATE CREATED AUTHOR AUTHOR'S ORGANIZ ATION 12/06/2022 [facility] DATE CREATED AUTHOR AUTHOR'S ORGANIZ ATION 09/07/2023 [facility] DATE CREATED AUTHOR AUTHOR'S ORGANIZ ATION 11/27/2023 [facility] DATE CREATED AUTHOR AUTHOR'S ORGANIZ ATION 11/29/2023 [facility] DATE CREATED AUTHOR AUTHOR'S ORGANIZ ATION 11/29/2023 [facility] DATE CREATED AUTHOR AUTHOR'S ORGANIZ ATION 05/16/2024 [facility] DATE CREATED AUTHOR AUTHOR'S ORGANIZ ATION 05/18/2024 [facility] DATE CREATED AUTHOR AUTHOR'S ORGANIZ ATION 06/02/[address] [facility] REASON FOR VISIT (unrecogniz ed section and content) Reason Comments New Reason Comments New Specialty Diagnoses / Procedures Referred By Jorge t Referred To Contact Orthopedics Diagnoses Lateral epicondylitis of both elbows Procedures CONSULT TO ORTHOPAEDICS OFFICE/OUTPATIENT [facility] 60-74 MINUTES Libia Gomez DO [facility] [address] [place] [address] Referral ID Status Reason Start Date Expiration Date V isits Requested Visits Authorized [id number] Closed PCP Requested Referral 07/20/2022 07/20/2023 1 1 Reason Comments Radiology MRI Reason Comments Follow Up Reason Comments Appointment Reason Comments Established Patient Specialty Diagnoses / Procedures Referred By Contac t Referred To Contact ORTHOPAEDIC SURGERY Diagnoses Lateral epicondylitis, right elbow Procedures NJX PLTLT PLASMA W/IMG HARVEST/PREPARATION PRP INJECTION [place] [address] [place] [address] [place] [address] [place] [address] Referral ID Status Reason Start Date Expiration Date V isits Requested Visits Authorized [id number] Closed Financial Clearance Required - Self Pay Patient Cleared - True Self-Pay required payment collected 12/06/2022 02/04/2023 1 1 Reason Comments Orders Reason Comments Established Patient Reason Comments OT EVAL Specialty Diagnoses / Procedures Referred By Contac t Referred To Contact [facility] Diagnoses Right elbow pain Lateral epicondylitis of right elbow Procedures CONSULT TO CELL TUBER MACHINE OCCUPATIONAL THERAPY EVAL HIGH COMPLEX 60 [place] [address] [place] [address] [facility] [address] [address] Referral ID Status Reason Start Date Expiration Date Visits Requested Visits Authorized [id number] Authorized Auto-Generat ed Referral 09/02/2022 09/01/2023 99 99 Reason Comments Occupational Therapy Specialty Diagnoses / Procedures Referred By Contac t Referred To Contact [facility] Diagnoses Right elbow pain Lateral epicondylitis of right elbow Procedures CONSULT TO CELL TUBER MACHINE OCCUPATIONAL THERAPY EVAL HIGH COMPLEX 60 [place] [address] [place] [address] [facility] [address] [address] Specialty Diagnoses / Procedures Referred By Contac t Referred To Contact Orthopedics / ORTHOPAEDIC SURGERY Diagnoses Lateral epicondylitis, right elbow Pain in right elbow LATERAL EPICONDYLITIS R ELBOW Procedures TENOTOMY ELBOW LATERAL/MEDIAL PERCUTANEOUS US GUIDANCE NEEDLE PLACEMENT IMG S&I TENOTOMY WITH US [place] [address] [place] [address] [place] [address] [place] [address] Referral ID Status Reason Start Date Expiration Date Visits Re quested Visits Authorized [id number] Closed 05/03/2023 09/01/2023 1 1 Reason Comments Follow-up Reason Comments Post-op 1 year RYGB; itchy f rom loose skin Specialty Diagnoses / Procedures Referred By Contac t Referred To Contact MR IMAGING Diagnoses Lateral epicondylitis of both elbows Left elbow pain Right elbow pain Fibromyalgia Anxiety Sleep apnea, unspecified type Cervicalgia Procedures MRI ELBOW WO IVCON RT MRI ANY JT UPPER EXTREMITY [place] [address] [place] [address] [place] [address] Referral ID Status Reason Start Date Expiration Date V isits Requested Visits Authorized [id number] Closed Auto-Generate d Referral 09/02/2022 09/01/2023 1 1 Specialty Diagnoses / Procedures Referred By Contac t Referred To Contact MR IMAGING Diagnoses Lateral epicondylitis of both elbows Left elbow pain Right elbow pain Fibromyalgia Anxiety Sleep apnea, unspecified type Cervicalgia Procedures MRI ELBOW WO IVCON LT MRI ANY JT UPPER EXTREMITY W/[place] [address] [place] [address] [place] [address] Referral ID Status Reason Start Date Expiration Date V isits Requested Visits Authorized [id number] Closed Auto-Generate d Referral 09/02/2022 09/01/2023 1 1 Care Teams (unrecognized sec tion and content) Team Status: Active Member Role Status Dates DYLAN John Primary Care Provider Active Team Status: Inactive Member Role Status Dates DYLAN John Primary Care Provider Active Start: November 11, 2023 End: November 11, 2023 KENYATTA Mendez Attending Provider Active S tart: November 11, 2023 End: November 11, 2023 Team Status: Inactive Member Role Status Dates Vijaya A Millie , DRIVEMATIC MACHINE OPERATOR COLLATOR OPERATOR-C Primary Care Provider Active Start: November 14, 2023 End: November 14, 2023 Ed Malhotra MD Attending Provider Active Sta rt: November 14, 2023 End: November 14, 2023 Team Status: Inactive Member Role Status Dates Vijaya Pinto APRN COLLATOR OPERATOR-C Primary Care Provider Active Ed Malhotra MD Attending Provider Active Golf Teacher Relationship Specialty Start Date End Date Abundio Galdamez, DO [address] [place] [address] Referring Orthopedics 05/31/22 Golf Teacher Relationship Specialty Start Date End Date Abundio Galdamez, DO [address] [place], [place] [id number] Referring Orthopedics 05/31/22 Golf Teacher Relationship Specialty Start Date End Date Abundio Galdamez, DO [address] [place] [address] Referring Orthopedics 05/31/22 Golf Teacher Relationship Specialty Start Date End Date Abundio Galdamez, DO [address] [place] [address] Referring Orthopedics 05/31/22 Golf Teacher Relationship Specialty Start Date End Date Abundio Galdamez, DO [address] [place] [address] Referring Orthopedics 05/31/22 Golf Teacher Relationship Specialty Start Date End Date Abundio Galdamez, DO [address] [place] [address] Referring Orthopedics 05/31/22 Golf Teacher Relationship Specialty Start Date End Date Abundio Galdamez, DO [address] [place] [address] Referring Orthopedics 05/31/22 Golf Teacher Relationship Specialty Start Date End Date Abundio Galdamez, DO [address] [place] [address] Referring Orthopedics 05/31/22 Golf Teacher Relationship Specialty Start Date End Date Abundio Galdamez DO [address] [place] [address] Referring Orthopedics 05/31/22 Golf Teacher Relationship Specialty Start Date End Date Abundio Galdamez DO [address] [place] [address] Referring Orthopedics 05/31/22 Golf Teacher Relationship Specialty Start Date End Date Abundio Galdamez DO [address] [place] [address] Referring Orthopedics 05/31/22 Golf Teacher Relationship Specialty Start Date End Date Abundio Galdamez DO [address] [place] [address] Referring Orthopedics 05/31/22 Golf Teacher Relationship Specialty Start Date End Date Abundio Galdamez DO [address] [place] [address] Referring Orthopedics 05/31/22 Golf Teacher Relationship Specialty Start Date End Date Abundio Galdamez DO [address] [place] [address] Referring Orthopedics 05/31/22 Golf Teacher Relationship Specialty Start Date End Date Vijaya Pinto APRN-CNP [address], [place] [address] PCP - General Family Medicine 11/03/20 Golf Teacher Relationship Specialty Start Date End Date Vijaya Pinto APRN-DAIRY PROCESSING EQUIPMENT OPERATOR [address], [place] [address] PCP - General Family Medicine 11/03/20 Golf Teacher Relationship Specialty Start Date End Date Vijaya Pinto, DRIVEMATIC MACHINE OPERATOR-DAIRY PROCESSING EQUIPMENT OPERATOR [address], [place] [address] PCP - General Family Medicine 11/03/20 Golf Teacher Relationship Specialty Start Date End Date Abundio Galdamez DO [address] [place] [address] Referring Orthopedics 05/31/22 Golf Teacher Relationship Specialty Start Date End Date Abundio Galdamez DO [address] [place] [address] Referring Orthopedics 05/31/22 Source Comments (unrecognize d section and content) In the event this informatio n is protected by the Federal Confidentiality of Alcohol and Drug Abuse Patient Records regulations: The Federal rules restrict any use of the information to criminally investigate or prosecute any alcohol or drug abuse patient.[facility] the event this information is protected by the Federal Confidentiality of Alcohol and Drug Abuse Patient Records regulations: The Federal rules restrict any use of the information to criminally investigate or prosecute any alcohol or drug abuse patient.[facility] the event this information is protected by the Federal Confidentiality of Alcohol and Drug Abuse Patient Records regulations: The Federal rules restrict any use of the information to criminally investigate or prosecute any alcohol or drug abuse patient.[facility] the event this information is protected by the Federal Confidentiality of Alcohol and Drug Abuse Patient Records regulations: The Federal rules restrict any use of the information to criminally investigate or prosecute any alcohol or drug abuse patient.[facility] Campus[facility] the event this information is protected by the Federal Confidentiality of Alcohol and Drug Abuse Patient Records regulations: The Federal rules restrict any use of the information to criminally investigate or prosecute any alcohol or drug abuse patient.[facility] Campus[facility] the event this information is protected by the Federal Confidentiality of Alcohol and Drug Abuse Patient Records regulations: The Federal rules restrict any use of the information to criminally investigate or prosecute any alcohol or drug abuse patient.[facility] Campus[facility] the event this information is protected by the Federal Confidentiality of Alcohol and Drug Abuse Patient Records regulations: The Federal rules restrict any use of the information to criminally investigate or prosecute any alcohol or drug abuse patient.[facility] Campus[facility] the event this information is protected by the Federal Confidentiality of Alcohol and Drug Abuse Patient Records regulations: The Federal rules restrict any use of the information to criminally investigate or prosecute any alcohol or drug abuse patient.[facility] Campus[facility] the event this information is protected by the Federal Confidentiality of Alcohol and Drug Abuse Patient Records regulations: The Federal rules restrict any use of the information to criminally investigate or prosecute any alcohol or drug abuse patient.[facility] Campus[facility] the event this information is protected by the Federal Confidentiality of Alcohol and Drug Abuse Patient Records regulations: The Federal rules restrict any use of the information to criminally investigate or prosecute any alcohol or drug abuse patient.[facility] Campus[facility] the event this information is protected by the Federal Confidentiality of Alcohol and Drug Abuse Patient Records regulations: The Federal rules restrict any use of the information to criminally investigate or prosecute any alcohol or drug abuse patient.[facility] Campus[facility] the event this information is protected by the Federal Confidentiality of Alcohol and Drug Abuse Patient Records regulations: The Federal rules restrict any use of the information to criminally investigate or prosecute any alcohol or drug abuse patient.[facility] Campus[facility] the event this information is protected by the Federal Confidentiality of Alcohol and Drug Abuse Patient Records regulations: The Federal rules restrict any use of the information to criminally investigate or prosecute any alcohol or drug abuse patient.[facility] Campus[facility] the event this information is protected by the Federal Confidentiality of Alcohol and Drug Abuse Patient Records regulations: The Federal rules restrict any use of the information to criminally investigate or prosecute any alcohol or drug abuse patient.[facility] Campus[facility] the event this information is protected by the Federal Confidentiality of Alcohol and Drug Abuse Patient Records regulations: The Federal rules restrict any use of the information to criminally investigate or prosecute any alcohol or drug abuse patient.[facility] CampusIn the event this information is protected by the Federal Confidentiality of Alcohol and Drug Abuse Patient Records regulations: The Federal rules restrict any use of the information to criminally investigate or prosecute any alcohol or drug abuse patient.[facility] CampusIn the event this information is protected by the Federal Confidentiality of Alcohol and Drug Abuse Patient Records regulations: The Federal rules restrict any use of the information to criminally investigate or prosecute any alcohol or drug abuse patient.[facility] CampusIn the event this information is protected by the Federal Confidentiality of Alcohol and Drug Abuse Patient Records regulations: The Federal rules restrict any use of the information to criminally investigate or prosecute any alcohol or drug abuse patient.[facility] CampusIn the event this information is protected by the Federal Confidentiality of Alcohol and Drug Abuse Patient Records regulations: The Federal rules restrict any use of the information to criminally investigate or prosecute any alcohol or drug abuse patient.[facility] CampusIn the event this information is protected by the Federal Confidentiality of Alcohol and Drug Abuse Patient Records regulations: The Federal rules restrict any use of the information to criminally investigate or prosecute any alcohol or drug abuse patient.[facility] Goals (unrecognized section and content) Goals may [...] BE BASED ON THE PRIMARY CLINICAL RECORDS. [employer] provides no warranty or guarantee of the accuracy or completeness of information in this document.
[2024-07-14 15:11] LABS: Age Gdln ACOG Testing Note (.); HPV Aptima Negative (Negative); IGP, Aptima HPV, rfx 16/18,45 Note (.)
== END 2024-07-06 22:15 | disposition home or self-care (01) ==
LOC: LAB 22:14
PROVIDERS: Visit Provider Obstetrics & Gynecology
DX: Z01.419 Encounter for gynecological examination (general) (routine) without abnormal findings (principal)
CPT/HCPCS: 88175

== ENCOUNTER 2024-07-09 09:30 | Outpatient (OUT) | payer OTHER, SELFPAY ==
--- NOTE | 2024-07-09 09:31 | US_ITS ---
[address] [address] Patient Name: FRANCISCO CARTER MRN: [id number] date: 1985 Sex: F Assigned Patient Location: [facility] Current Patient Location: Accession/Order Number: [id number] Exam Date: 07/09/2024 09:32 Report Date: 07/10/2024 06:32 At the request of: TALIA BARRY Procedure: US pelvis w/ transvaginal EXAMINATION: US pelvis w/ transvaginal HISTORY: MENORRHEA, PELVIC PAIN COMPARISON: Ultrasound pelvis 07/18/2023 TECHNIQUE: Transabdominal and/or transvaginal sonographic examination was performed as indicated by examination type. FINDINGS: UTERUS: Heterogeneous echotexture without appreciable mass. Nabothian cysts within cervix. Uterus size: 9.9 x 4.3 x 5.7 cm ENDOMETRIUM: Normal homogeneous appearance. Endometrial thickness: 4 mm RIGHT OVARY: Normal size and appearance. Duplex Doppler demonstrates normal waveform and flow; resistive index 0.6. Ovary size: 4.8 x 2.9 x 4.1 cm LEFT OVARY: Contains a prominent follicle/cyst and a nonspecific slightly irregular hyperechoic structure 1.2 x 0.8 x 0.7 cm. No suspicious vascularity. Duplex Doppler demonstrates normal waveform and flow; resistive index 0.5. Ovary size: 3.5 x 2.1 x 2.5 cm CUL-DE-SAC: Unremarkable. No significant free fluid. BLADDER: Unremarkable. OTHER: None. US/US pelvis w/ transvaginal IMPRESSION: 1. Heterogeneous uterine endometrium and incidental nabothian cysts within cervix. 2. Prominent follicle and adjacent irregular hyperechoic structure, possibly a collapsing/collapsed cyst. Consider follow-up ultrasound evaluation in 6 weeks to document clearing. Electronically authenticated by: RUSTY MORALES Date: 07/10/2024 06:32
== END 2024-07-09 09:31 | disposition home or self-care (01) ==
LOC: NOMS 09:30
PROVIDERS: Visit Provider Obstetrics & Gynecology
DX: Z01.818 Encounter for other preprocedural examination (principal); Z30.2 Encounter for sterilization; N92.0 Excessive and frequent menstruation with regular cycle; R10.2 Pelvic and perineal pain
CPT/HCPCS: 76830; 76856; G0463

== ENCOUNTER 2024-07-09 13:58 | Outpatient (OUT) | payer OTHER, SELFPAY ==
--- NOTE | 2024-07-09 15:51 | PM.PRESUREVA ---
History of Present Illness History of Present Illness Chief complaint: REQ FOR STERILIZATION, ABN UTERINE BLEEDING Narrative: Patient presents for presurgical testing. The patient reports heavy painful periods which are irregular. She denies fever, nausea, vomiting, dysuria, or any other complaints. Review of Systems ROS Narrative REVIEW OF SYSTEMS: Negative except as stated in HPI, ten or more systems reviewed. Constitutional: No fever, chills, weakness ENT: No sore throat or epistaxis Cardiovascular: No edema, chest pain, palpitations, or activity intolerance Respiratory: No shortness of breath, cough, or wheezing Musculoskeletal: No joint pain or swelling Genitourinary: No dysuria or hematuria Neurological: No numbness, tingling, weakness, or headache Psychiatric: No mood changes PFSH [facility] Medical History (Updated 07/09/24 @ 15:54 by Kathy Stahl NP) Meningitis spinal (1986) ?G03.9 - Meningitis, unspecified (ICD-10) Sprain of UCL of elbow ?S53.449A - Ulnar collateral ligament sprain of unspecified elbow, initial encounter (ICD-10) Shoulder pain ?M25.519 - Pain in unspecified shoulder (ICD-10) Disc herniation Back pain ?M54.9 - Dorsalgia, unspecified (ICD-10) Anemia ?D64.9 - Anemia, unspecified (ICD-10) Depression ?F32.A - Depression, unspecified (ICD-10) Panic attacks ?F41.0 - Panic disorder [episodic paroxysmal anxiety] (ICD-10) Anxiety ?F41.9 - Anxiety disorder, unspecified (ICD-10) COVID-19 ?U07.1 - COVID-19 (ICD-10) Sleep apnea ?G47.30 - Sleep apnea, unspecified (ICD-10) Asthma ?J45.909 - Unspecified asthma, uncomplicated (ICD-10) Syncope and collapse ?R55 - Syncope and collapse (ICD-10) Request for sterilization ?Z30.2 - Encounter for sterilization (ICD-10) Pelvic pain ?R10.2 - Pelvic and perineal pain (ICD-10) Abnormal uterine bleeding ?N93.9 - Abnormal uterine and vaginal bleeding, unspecified (ICD-10) Menorrhagia ?N92.0 - Excessive and frequent menstruation with regular cycle (ICD-10) Kidney stones ?N20.0 - Calculus of kidney (ICD-10) Peptic ulcer ?K27.9 - Peptic ulcer, site unspecified, unspecified as acute or chronic, without hemorrhage or perforation (ICD-10) GERD (gastroesophageal reflux disease) ?K21.9 - Gastro-esophageal reflux disease without esophagitis (ICD-10) Heart murmur ?R01.1 - Cardiac murmur, unspecified (ICD-10) Hypertension ?I10 - Essential (primary) hypertension (ICD-10) Prediabetes ?R73.03 - Prediabetes (ICD-10) 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) Delayed recovery from anesthesia Surgical History (Updated 07/09/24 @ 14:44 by Kathy Stahl NP) H/O radiofrequency ablation (RFA) of nerve of lumbar spine ?Z98.890 - Other specified postprocedural states (ICD-10) History of tonsillectomy ?Z90.89 - Acquired absence of other organs (ICD-10) History of gastric bypass (11/28/22) ?Z98.84 - Bariatric surgery status (ICD-10) Family History (Updated 07/09/24 @ 14:44 by Kathy Stahl NP) Other Cancer Family history of aneurysm Family history of diabetes mellitus Family history of heart disease Family history of hypertension Family history of myocardial infarction Family history of seizures Family history of stroke Social History (Updated 07/09/24 @ 14:32 by Kathy Stahl NP) Within the past year, how often did you have a drink containing alcohol: never Score interpretation: A score less than 3 is consistent with normal alcohol consumption. Smoking status: Former smoker Non-prescribed substance use: denies use Previous occupational history: [employer] Highest level of school completed/degree received: some college, no degree Meds Home Medications and Allergies Home Medications ?Medication ?Instructions ?Recorded ?Confirmed ?Type calcium 200 mg (as 2 tab PO QID 07/09/24 07/09/24 History citrate)-vitamin D3 6.25 mcg (250 unit) tablet cyanocobalamin (vitamin B-12) 1,000 mcg IM .qmonth 07/09/24 07/09/24 History 1,000 mcg/mL injection solution omeprazole 20 mg capsule,delayed 20 mg PO BID PRN heartburn 07/09/24 07/09/24 History release vitamin with calcium 1 tab PO DAILY 07/09/24 07/09/24 History no.72-iron 27 mg-folic acid 1 mg tablet ( Vitamins Plus Low Iron) zinc gluconate 50 mg tablet 50 mg PO DAILY 07/09/24 07/09/24 History Allergies Allergy/AdvReac Type Severity Reaction Status Date / Time Penicillins Allergy swelling, Verified 07/09/24 14:26 itching, SOB Sulfa (Sulfonamide Allergy swelling, Verified 07/09/24 14:26 Antibiotics) itching, SOB Exam Narrative Exam Narrative: Constitutional: Awake, alert, comfortable, well-appearing, nontoxic, interactive, vital signs as charted Head: Normocephalic, atraumatic ENT: Naris patent, posterior oropharynx clear, oral mucosa moist Neck: Supple, normal appearance, normal range of motion, no meningeal signs, no lymphadenopathy Respiratory: No respiratory distress, breath sounds clear Cardiovascular: Regular rate and rhythm, strong and regular heart tones Abdomen: Nontender, normal bowel sounds, soft, no CVA tenderness Musculoskeletal: Normal gait, no swelling or edema Skin: No rashes or induration, no lesions, only visible skin inspected Neuro: No neurological deficits, normal sensation Psychiatric: Oriented ?3, normal affect Assessment and Plan Assessment and Plan (1) Abnormal uterine bleeding: (2) Menorrhagia: (3) Pelvic pain: (4) Request for sterilization: Plan Da Sherrell assisted bilateral laparoscopic salpingectomy, endometrial ablation scheduled with Dr. Heredia July 17, 2024.
== END 2024-07-09 13:59 | disposition home or self-care (01) ==
LOC: PST 14:00
PROVIDERS: Visit Provider Obstetrics & Gynecology
DX: Z01.818 Encounter for other preprocedural examination (principal); Z30.2 Encounter for sterilization; N92.0 Excessive and frequent menstruation with regular cycle; N93.9 Abnormal uterine and vaginal bleeding, unspecified; R10.2 Pelvic and perineal pain
CPT/HCPCS: G0463

== ENCOUNTER 2024-07-17 06:11 | Day surgery (SDC) | payer OTHER, SELFPAY ==
[2024-07-09 14:54] VITALS: BP 121/74; PULSE 69; TEMP 36.3; O2SAT 100; BMI 24.2
[2024-07-17] VITALS (10 sets, daily range): BP systolic 109–129; BP diastolic 61–92; PULSE 54–99; TEMP 36.1–36.3; O2SAT 97–100; BMI 23.6
--- OUTSIDE RECORDS SUMMARY | 2024-07-17 06:15 | XMS_ITS | CCD ---
Author Organization [facility] Care Team Providers Care Road Advisor Name Role Phone None, No PCP Unavailable Unavailable Ed Malhotra Unavailable Abundio Galdamez Unavailable Delia Allen Unavailable DYLAN Pinto Primary Care Provider MD Ed Malhotra Attending Provider Abundio Galdamez DO Unavailable Obie Galdamez DOin Julio Unavailable IN, FRANK A Referring Unavailable IN, FRANK A Referring Unavailable ED MALHOTRA Attending [...] GENIN, FRANK A Attending Unavailable DYLAN Pinto Primary Care Provider MD Ed Malhotra Attending Provider RAHUL, RIVKA Referring Unavailable MILLIE, VIJAYA A Primary Care Unavailable SANDRA AMY M Referring Unavailable MILLIE, VIJAYA A Primary Care Unavailable JAY NICHOL Benítez Attending Unavailable MILLIE, VIJAYA A Referring Unavailable MILLIE, VIJAYA A Primary Care Unavailable KOENIG, RIVKA Attending Unavailable MILLIE, VIJAYA A Referring Unavailable MILLIE, VIJAYA A Primary Care Unavailable KOENIG, RIVKA Attending Unavailable MILLIE, VIJAYA A Referring Unavailable MILLIE, VIJAYA A Primary Care Unavailable Abundio Galdamez DO Unavailable [phone] Millie, Vijaya A Primary Care Unavailable Giovanna, Kirby Admitting Unavailable Giovanna, Kirby Attending Unavailable Ed Malhotra Attending Unavailable Millie, Vijaya A Primary Care Unavailable Ed Malhotra Admitting Unavailable Unavailable Primary Care Provider Unavailannita e MALI MALHOTRA Attending Unavailable GIOVANNAKIRBY Attending Unavailable GIOVANNAKIRBY Attending Unavailable GIOVANNA, KIRBY Attending Unavailable Koenig 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, Rivka Primary Care Provider SHANON BARR Attending Unavailab le Kirby HEREDIA R Referring Unavailable NONE, XXXX Primary Care Physician Unavailab le Allergies Allergy Classification Reported Allergen(s) Allergy Type Date of Onset Reaction(s) Facility (14 sources) Penicillins; Translations: [Penicillins] Allergy to drug (finding) 08-20-20 Edema, Itching [facility] Other [place] [facility] (12 sources) Sulfonamides (Antibiotic); Translations: [Sulfa Drugs] Allergy to drug (finding) Unknown (qualifier value) [facility] (20 sources) Penicillin G; Translations: [PENICILLIN G] Drug Allergy 06-16-20 18 [facility] (20 sources) Sulfacetamide / Sulfur Drug Allergy [facility] Other (3 sources) Sulfacetamide; Translations: [sulfacetamide] Drug Allergy 03-13-20 22 [facility] (6 sources) Sulfur; Translations: [sulfur] Drug Allergy 03-13-20 22 [facility] (18 sources) Penicillins Drug Allergy 08-20-20 22 [facility] Work Phone: (20 sources) Sulfonamides (Antibiotic); Translations: [SULFA (SULFONAMIDE ANTIBIOTICS)] Drug Allergy 06-16-20 18 Hives, Swelling, Unknown [facility] Work Phone: (1 source) diphenhydrAMINE Drug Allergy 03-10-20 15 [facility] (1 source) Penicillins Drug allergy (disorder) 03-10-20 15 [facility] (1 source) Sulfonamides (Antibiotic) Drug allergy (disorder) 03-10-20 15 [facility] (10 sources) Sulfamethoxazole / Trimethoprim; Translations: [SULFAMETHOXAZOLE-TR IMETHOPRIM] Drug Allergy 06-16-20 18 Hives, Swelling [facility] (1 source) Penicillin Drug Allergy 11-14-19 [facility] (3 sources) Penicillins Drug Allergy 06-16-20 18 Hives, Swelling, Unknown [facility] (1 source) Penicillin; Translations: [penicillin] Drug Allergy Unknown (qualifier value) [facility] Medications Current Medications Medication Drug Class(es) Dates [...] days. amitriptyline hydrochloride 25 mg oral tablet (18 sources) Tricyclic Antidepressant Start: 09-12-2022 amitriptyline (ELAVIL) 25 mg tablet TAKE 1/2 TO 1 TABLET BY MOUTH ONCE DAILY AT BEDTIME 30 30 tablet 2 09/12/2022 Active benzoyl peroxide 0.05 mg/mg / clindamycin 0.01 mg/mg topical gel (2 sources) Lincosamide Antibacterial Start: 01-16-2024 clindamycin-benzoyl peroxide (BENZACLIN) gel Apply 1 Application topically daily as needed (acne). 25 g 1 01/16/2024 Active Start: 11-28-2023 clindamycin-be nzoyl peroxide (BENZACLIN) gel Apply 1 Application topically daily as needed (acne). 25 g 0 11/28/2023 Active calcium citrate 950 mg / cholecalciferol 250 unt oral tablet (7 sources) Vitamin D Start: 08-15-2023 take 2 tablets by mouth three times daily calcium citrate-vitamin D3 (CITRACAL PETITES) 200 mg calcium -250 units tablet Indications: Postsurgical malabsorption , Malnutrition following gastrointestinal surgery , History of gastric bypass TAKE TWO TABLETS BY MOUTH THREE TIMES A DAY 180 tablet 11 08/15/2023 Active Start: 04-18-2023 Calcium-Cholec alciferol 200-6.25 MG-MCG tablet Take 2 tablets by mouth in the morning and 2 tablets at noon and 2 tablets in the evening. 04/18/2023 Active cholecalciferol 0.025 mg oral tablet (1 source) Vitamin D Start: 07-16-2024 calcium (as carbonate)-vitamin D 90 mg-25 mcg (1000 intl units) oral tablet See Instructions, Refill(s) 0 Start Date: 07/16/24 Status: Ordered citalopram 40 mg oral tablet (20 sources) Serotonin Reuptake Inhibitor Start: 11-07-2021 End: 11-11-2023 take 1 tablet by mouth once daily in the morning citalopram (CeleXA) 40 mg tablet Indications: Anxiety and depression TAKE ONE TABLET BY MOUTH ONCE DAILY IN THE MORNING 30 tablet 03/21/2023 Active Start: 04-20-2021 CeleXA 40 MG O ral Tablet Quantity: 0 Refills: 0 Ordered: 20-Apr-2021 DO Start : 20-Apr-2021 Active Comment on above: Take 40 mg by mouth once daily. docusate sodium 100 mg oral capsule (4 sources) Start: 05-30-20 take 1 capsule by mouth twice daily as needed for constipation docusate sodium (COLACE) 100 mg capsule Indications: Constipation, unspecified constipation type Take 1 capsule (100 mg total) by mouth 2 (two) times a day as needed for constipation. 10 capsule 05/30/2023 Active etonogestrel 68 mg drug implant (7 sources) Progestin etonogestreL (NEXPLANON) 68 mg implant 1 each (68 mg total) by subdermal route once. Active etonogestrel-elu ting (Nexplanon) 68 mg contraceptive implant Inject 68 mg under the skin Active ferrous sulfate (3 sources) Start: 02-28-2023 take 1 tablet by mouth in the morning Ferrous Sulfate (IRON PO) Take 1 tablet by mouth in the morning. 02/28/2023 Active fluticasone propionate 0.05 mg/actuat metered dose nasal spray (1 source) Corticosteroid Start: 11-11-2023 take 1 spray(s) nasal route once daily Fluticasone Propionate Active 2 SPRAY INTRANASAL Daily November 11, 2023 12:00am administer into each nostril Naltrexone (4 sources) Opioid Antagonist Start: 10-12-2022 take 4.5 mg by mouth once daily naltrexone HCl (NALTREXONE ORAL) Take 4.5 mg by mouth nightly. Back pain 10/12/2022 Active Start: 10-12-2022 take 4.5 mg by mouth once aviva y naltrexone HCl (NALTREXONE ORAL) Take 4.5 mg by mouth nightly. Back pain 0 10/12/2022 Active ondansetron 4 mg oral tablet (3 sources) Serotonin-3 Receptor Antagonist ondansetron (Zofran) 4 MG tablet Take by mouth Active Ozempic (0.25 or 0.5 MG/DOSE) (20 sources) Ozempic (0.25 or 0.5 MG/DOSE) Active PNV Plus Multivitamin 27-1 MG (14 sources) take 1 tablet by mouth in the morning PNV Plus Multivitamin 27-1 MG TAKE 1 TABLET BY MOUTH IN THE MORNING Oral for 60 Days Active PNV,calcium 05-fdym-bfowy acid ( VITAMIN PLUS LOW IRON) 27 mg iron- 1 mg tablet (1 source) Start: 05-13-20 take 1 tablet by mouth once daily in the morning PNV,calcium 69-rhop-eovba acid ( VITAMIN PLUS LOW IRON) 27 mg iron- 1 mg tablet Indications: Postsurgical malabsorption , Malnutrition following gastrointestinal surgery , History of gastric bypass take one tablet by mouth once daily in the morning 90 tablet 1 05/13/2024 Active pregabalin (20 sources) Start: 11-14-19 Pregabalin Active MG PO November 14, 2023 [...] (50 mg total) before bedtime. 60 capsule 08/29/2023 Active Start: 02-28-2023 take 1 capsule [...] 11, 2023 11:30am take 1 capsule by [facility] twice daily pregabalin (LYRICA) 100 mg capsule Take 100 mg by mouth twice daily. Active take 1 capsule by [facility] every twelve hours Lyrica 200 MG 1 capsule Orally Twice a day for 30 days Active Comment on above: Take 100 mg by mouth twice daily. (9 sources) Active Isnedmso-Caa-By-Fa () 1 mg Tablet (2 sources) Start: 04-17-2022 take 1 tablet by mouth once daily Dibdzawh-Rdj-Bc-Fa () 1 mg Tablet Active 1 TAB PO Daily April 17, 2022 12:00am MV-Min-Fe Fum-FA-DHA ( 1 PO) (3 sources) MV-Min- Fe Fum-FA-DHA ( 1 PO) Take by mouth Daily Active vit 10-iron fum-folic 65-1 mg tablet (3 [...] 3 mL 25 x 1 1/2 syringe (5 sources) Start: 07-14-2024 syringe with needle (BD LUER-PAYAL SYRINGE) 3 mL 25 x 1 1/2 syringe Indications: Malnutrition following gastrointestinal surgery , History of gastric bypass , Postsurgical malabsorption , Vitamin B12 deficiency USE TO INJECT CYANOBALAMIN ONCE EVERY MONTH 3 each 1 07/14/2024 Active Start: 05-30-2023 End: 07-14-2024 syringe with needle (BD LUER -PAYAL SYRINGE) 3 mL 25 x 1 1/2 syringe Indications: Malnutrition following gastrointestinal surgery , History of gastric bypass , Postsurgical malabsorption , Vitamin B12 deficiency 1 SYRG by miscellaneous route every 30 (thirty) days. 3 each 1 05/30/2023 07/14/2024 Discontinued Start: 05-30-2023 syringe with n eedle (BD LUER-PAYAL SYRINGE) 3 mL 25 x 1 1/2 syringe Indications: Malnutrition following gastrointestinal surgery , History of gastric bypass , Postsurgical malabsorption , Vitamin B12 deficiency 1 SYRG by miscellaneous route every 30 (thirty) days. 3 each 1 05/30/2023 Active tiZANidine 4 mg oral tablet (7 sources) Central alpha-2 Adrenergic Agonist Start: 07-16-2024 take 1 tablet by mouth every eight hours Zanaflex 4 mg Tab 4 mg = 1 tab(s), Oral, q8hr, Refills(s) 0 Start Date: 07/16/24 Status: Ordered Start: 11-14-2023 take 4 mg by mouth twice daily Tizanidine Active 4 MG PO Twice daily 60 30 November 14, 2023 10:24am Start: 11-11-2023 End: 11-14-2023 Tizanidine Discontinued MG P O November 11, 2023 12:00am November 14, 2023 10:25am Start: 02-21-2023 tiZANidine (ZA NAFLEX) 4 mg tablet TAKE 12 TO 1 TABLET BY MOUTH ONCE DAILY AT BEDTIME 02/21/2023 Active topiramate 100 mg oral tablet [...] Ordered: 20-Apr-2021 DO Start : 20-Apr-2021 Active Vitafusion (1 source) Start: 07-16-2024 Vitafusion Pre [place] 2 tab(s), Chewed, Daily, Refill(s) 0 Start Date: 07/16/24 Status: Ordered Vitamin B Complex 100 injectable solution (1 source) Start: 07-16-2024 Vitamin B Comp orestes 100 injectable solution See Instructions, Refill(s) 0 Start Date: 07/16/24 Status: Ordered vitamin b12 1 mg/ml injectable solution (13 sources) Vitamin B12 Start: 11-11-2023 Cyanocobalamin (Vitamin B-12) Active MCG IM November 11, 2023 12:00am Start: 05-30-2023 End: 07-14-2024 cyanocobalamin (VITAMIN B-12 ) 1,000 mcg/mL injection Indications: Malnutrition following gastrointestinal surgery , History of gastric bypass , Postsurgical malabsorption , Vitamin B12 deficiency INJECT 1 ML (1,000 MCG TOTAL) INTO THE APPROPRIATE MUSCLE EVERY 30 (THIRTY) DAYS. 3 mL 1 07/14/2024 Active cyanocobalamin ( Vitamin B-12) 1000 MCG/ML injection Inject 1,000 mcg into the shoulder, thigh, or buttocks 1 (one) time. Active Cyanocobalamin 1 000 MCG/ML INJECT 1 ML (1,000 MCG TOTAL) INTO THE APPROPRIATE MUSCLE EVERY 30 (THIRTY) DAYS. Injection for 30 Days Active Zinc (1 source) Start: 07-16-2024 Zinc See Instr uctions, Refills(s) 0 Start Date: 07/16/24 Status: Ordered zinc gluconate 50 mg oral tablet (6 sources) Start: 11-28-2023 take 1 tablet by mouth in the morning zinc gluconate 50 mg tablet Take 1 tablet (50 mg total) by mouth in the morning. 90 tablet 3 11/28/2023 Active Completed/Discontinued Medications Medication Drug Class(es) Dates Sig (Normalized) Sig (Original) [id number] 200 actuat albuterol 0.09 mg/actuat metered dose [...] 11:30am Start: 04-20-2021 [facility] daily [facility] Omeprazole 20 MG Oral Tablet Delayed Release Take 1 tablet twice daily Quantity: 0 Refills: 0 Ordered: 20-Apr-2021 DO Start : 20-Apr-2021 Active Start: 03-30-2021 take 1 capsule by [facility] once daily Omeprazole 40 MG 1 capsule 30 minutes before morning meal Orally Once a day Mar, Active omeprazole (PriL OSEC) [address] capsule every 12 (twelve) hours Active Comment on above: Take 40 mg [...] 40 mg Start: 03-30-2021 Kenalog -40 mg 29 Mar, 2021 40 mg ubrogepant 50 mg oral tablet (2 sources) Start: 11-07-2021 End: 11-11-2023 Ubrogepant (Ubrelvy) 50 mg t ablet Discontinued 50 MG PO As Directed November 07, 2021 1:00am November 11, 2023 11:32am Problems Active Problems Problem Classification Problem Date Documented Da te Episodic/Chronic Anxiety disorders (20 sources) Mixed anxiety and depressive disorder; Translations: [Dysthymic disorder] Onset: 11-03-2020 Resolved: 03-04-2023 Chronic Asthma (11 sources) Exercise-induced asthma; Translations: [Exercise induced bronchospasm] Chronic Complications of surgical procedures or medical care (15 sources) Post-surgical malabsorption; Translations: [Postsurgical malabsorption, not elsewhere classified] Onset: 02-28-2023 08-29-2023 Chronic Diabetes mellitus without complication (11 sources) Prediabetes; Translations: [Other abnormal glucose] Episodic Genitourinary symptoms and ill-defined conditions (1 source) Stress incontinence (female) (male); Translations: [Stress incontinence (female) (male)] Onset: 07-16-2024 Chronic Headache; including migraine (17 sources) Migraine; Translations: [Migraine, unspecified, without mention of intractable migraine without mention of status migrainosus] Onset: 11-03-2020 10-19-2021 Chronic Hypertension complicating ; childbirth and the puerperium (4 sources) Chronic hypertension complicating AND/OR reason for care during ; Translations: [Unspecified pre-existing hypertension complicating , unspecified trimester] Onset: 08-11-2018 Resolved: 11-03-2020 11-03-2020 Chronic Menstrual disorders (11 sources) Menorrhagia; Translations: [Excessive or frequent menstruation] Chronic Nutritional deficiencies (5 sources) Cobalamin deficiency; Translations: [Deficiency of other specified B group vitamins] Onset: 05-30-2023 05-30-2023 Episodic Other connective tissue disease (11 sources) Tendinitis; Translations: [Enthesopathy of unspecified site] Episodic Other connective tissue disease (16 sources) Fibromyalgia; Translations: [Myalgia and myositis, unspecified] Episodic Other connective tissue disease (11 sources) Disease suspected; Translations: [Other symptoms involving nervous and musculoskeletal systems] Episodic Other connective tissue disease (7 sources) Lateral epicondylitis of bilateral humerus; Translations: [Lateral epicondylitis, right elbow] Episodic Other connective tissue disease (1 source) H/O: osteoarthritis 07-15-2024 Episodic Other gastrointestinal disorders (12 sources) History of bariatric surgical procedure; Translations: [Bariatric surgery status] 11-29-2023 Episodic Other gastrointestinal disorders (1 source) Drug-induced constipation; Translations: [Drug induced constipation] 08-29-2023 Episodic Other gastrointestinal disorders (8 sources) History of bypass of stomach; Translations: [...] Translations: [Localized adiposity] Onset: 11-28-2023 Chronic Other upper respiratory infections (1 source) Chronic sinusitis, unspecified; Translations: [Unspecified sinusitis (chronic)] 11-11-2023 Chronic Residual codes; unclassified (7 sources) Sleep apnea; Translations: [Sleep apnea, unspecified] [...] 05-30-2023 Unclassified (1 source) Post-op Onset: 11-28-2023 Viral infection (1 source) Herpes simplex 07-15-2024 Episodic Past or Other Problems Problem Classification Problem Date Documented Da te Episodic/Chronic Administrative/social admission (5 sources) Patient encounter status; Translations: [Dietary counseling and surveillance] Onset: Resolved: 2 10-02-2021 Episodic Esophageal disorders (15 sources) Gastroesophageal reflux disease; Translations: [Esophageal reflux] Onset: 1 Resolved: 3 02-28-2023 Chronic Essential hypertension (7 sources) Benign essential hypertension; Translations: [Benign essential hypertension] Onset: 2 Resolved: 3 03-04-2023 Chronic Fluid and electrolyte disorders (4 sources) Dehydration; Translations: [Dehydration] Onset: 3 12-10-2022 Episodic Mood disorders (4 sources) Mood disorders Onset: 3 03-04-2023 Other complications of (4 sources) Thyroid disease in mother complicating , childbirth AND/OR puerperium; Translations: [Endocrine, nutritional and metabolic diseases complicating , unspecified trimester] Onset: 8 Resolved: 1 11-03-2020 Episodic Other complications of (4 sources) Depressive disorder in mother complicating ; Translations: [Other mental disorders complicating , unspecified trimester] Onset: 8 Resolved: 1 11-03-2020 Episodic Other complications of (4 sources) Anxiety in ; Translations: [Other mental [...] Onset: 3 Episodic Other connective tissue disease (5 sources) H/O: musculoskeletal disease; Translations: [Personal history of other diseases of the musculoskeletal system and connective tissue] Onset: 1 08-29-2023 Episodic Other connective tissue disease (4 sources) Muscle pain; Translations: [Myalgia, unspecified site] Onset: 1 11-03-2020 Episodic Other connective tissue disease (4 sources) Tendinitis of left elbow; Translations: [Other enthesopathies, not elsewhere classified] Onset: 1 Resolved: 2 10-02-2021 Episodic Other connective tissue disease (1 source) Personal history of other diseases of the musculoskeletal system and connective tissue; Translations: [Personal history of other diseases of the musculoskeletal system and connective tissue] Onset: 1 Episodic Other ear and sense organ disorders (4 sources) Pain of ear structure; Translations: [Otalgia, bilateral] Onset: 1 Resolved: 2 10-02-2021 Episodic Other gastrointestinal disorders (4 sources) Constipation; Translations: [Constipation, unspecified] Onset: 3 05-30-2023 Episodic Other gastrointestinal disorders (2 sources) Bariatric surgery status; Translations: [Bariatric surgery status] Onset: 3 Episodic Other liver diseases (4 sources) Enzyme level - finding; Translations: [Elevated transaminase level] Onset: 3 05-30-2023 Episodic Other nervous system disorders (4 sources) H/O: migraine; Translations: [Personal history of [...] Episodic Other nutritional; endocrine; and metabolic disorders (15 sources) Body mass index 40+ - severely obese; Translations: [Morbid obesity] Onset: 3 Resolved: 3 03-04-2023 Chronic Other nutritional; endocrine; and metabolic disorders (4 sources) Obese class I; Translations: [Obesity, unspecified] Onset: 3 Resolved: 3 05-30-2023 Chronic Other nutritional; endocrine; and metabolic disorders (3 sources) Weight gain; Translations: [Abnormal weight gain] Onset: 2 Resolved: 3 03-04-2023 Episodic Other nutritional; endocrine; and metabolic disorders (1 source) Weight increased; Translations: [Abnormal weight gain] Onset: 2 Resolved: 3 03-04-2023 Episodic Other skin disorders (3 sources) Acne; Translations: [Acne, unspecified] Onset: 4 11-29-2023 Episodic Other upper respiratory infections (9 sources) Acute maxillary sinusitis; Translations: [Acute maxillary sinusitis, unspecified] Onset: 1 Resolved: 2 10-02-2021 Episodic Residual codes; unclassified (4 sources) At risk of disease; Translations: [Other specified personal risk factors, not elsewhere classified] Onset: 3 12-10-2022 Episodic Sprains and strains (4 sources) Sprain of left wrist; Translations: [Unspecified [...] Test Name Value Interpretation Reference Range Facility [facility] 05-28-2024 L Specimen: [id number] Received: 05/29/242 Status: CALLY Joy Num: [id number] Spec Type: Surgical Subm Dr: Kirby Heredia Tissues: A Endometrium - Biopsy (EMBX) Procedures: HE/2, Gross/Micro L4 Age/ Patient Sex Location Account Attending Physician MiguelMichelle Avalos 39/F [facility] [id number] Kirby Heredia SPEC NUM: [id number] RECD: 05/29/24 STATUS: ZHANGCandis JOY NUM: [id number] HUMBLE: 05/28/24- SUBM DR: Kirby Heredia ENTERED: 05/29/24-[address] [facility] [address]: Moon,Jay SPEC TYPE: Surgical DEPT: JANETTE [facility]LE ENTERED BY: [id number] RECV BY: [id number] ORDERED: HE/2, Gross/Micro L4 ORDERED: HE/2, Gross/Micro L4 Pathological Diagnosis Endometrial biopsy: -Multiple [...] is entirely submitted in cassette A1. Specimen: [id number] Received: 05/29/24 Status: CALLY Joy Num: [id number] Spec Type: Surgical Subm Dr: Kirby Hereida Tissues: A Endometrium - Biopsy (EMBX) Procedures: HE/2, Gross/Micro L4 Patient: Michelle Rivera [id number] (Continued) Specimen: [id number] Received: 05/29/24 (Continued) Signed (signature on file) Eloy Nguyen MD 06/01/24 1626 Specimen: [id number] Received: 05/29/24 Status: CALLY Joy Num: [id number] Spec Type: Surgical Subm Dr: Kirby Heredia Tissues: A Endometrium - Biopsy (EMBX) Procedures: FAUSTO, Titi/Fernando L4 Patient: Michelle Rivera [id number] (Continued) Specimen: [id number] Received: 05/29/24 (Continued) Microscopic Description Microscopic examinations are performed supporting the above interpretation CPT Codes 78397 Specimen: [id number] Received: 05/29/24 Status: CALLY Joy Num: [id number] Spec Type: Surgical Subm Dr: Kirby Heredia Tissues: A Endometrium - Biopsy (EMBX) Procedures: WILFRID/Cahu, Gross/Micro L4 Patient: Michelle Rivera [id number] (Continued) Signed (signature on file) Francisco-Sandor Nguyen MD 06/01/24 1626 Normal [facility] CALCIUMon 11-25-2023 Calcium [Mass/Vol] 8.8 mg/dL Normal 8.5-10.5 [facility] Comment on above: Performed By: #### C BCA, LIVR, 16296-6, 2498-4, 2731-8, 2284- 8, 2132-9, 09101-8 #### [facility] ([id number]) [address], [address] [place] [address] CBC AND AUTO DIFFon 11-25-19 ABSOLUTE BASOPHIL 0.0 X10E9/L Normal 0.0-0.2 [facility] Comment on above: Performed By: #### C BCA, LIVR, 70580-7, 2498-4, 2731-8, 2284- 8, 2132-9, 49079-5 #### [facility] ([id number]) [address], [address] [place] [address] ABSOLUTE NEUTROPHIL 3.8 X10E9/L Normal 1.5-6.6 [facility] Comment on above: Performed By: #### C BCA, LIVR, 69572-0, 2498-4, 2731-8, 2284- 8, 2132-9, 98454-9 #### [facility] ([id number]) [address], [address] [place] [address] Basophils/100 WBC (Bld) 0.4 % Normal [facility] Comment on above: Performed By: #### C BCA, LIVR, 08351-5, 2498-4, 2731-8, 2284- 8, 2132-9, 33714-7 #### [facility] ([id number]) [address], [address] [place] [address] Eosinophils (Bld) [#/Vol] 0.1 10*3/uL Normal 0.0-0.4 [facility] Comment on above: Performed By: #### C BCA, LIVR, 96958-4, 2498-4, 2731-8, 2284- 8, 2132-9, 19968-7 #### [facility] ([id number]) [address], [address] [place] [address] Eosinophils/100 WBC (Bld) 1.9 % Normal [facility] Comment on above: Performed By: #### C BCA, LIVR, 91779-3, 2498-4, 2731-8, 2284- 8, 2132-9, 81983-2 #### [facility] ([id number]) [address] [place] [address] Erythrocyte distribution width (RBC) [Ratio] 13.9 % Normal 11.5-15.0 [facility] Comment on above: Performed By: #### C BCA, LIVR, 25299-8, 2498-4, 2731-8, 2284- 8, 2-9, 56038-7 #### [facility] ([id number]) [address], [address] [place] [address] Hematocrit (Bld) [Volume fraction] 37.1 % Normal 35-47 [facility] Comment on above: Performed By: #### C BCA, LIVR, 88890-0, 2498-4, 2731-8, 2284- 8, 2132-9, 80970-5 #### [facility] ([id number]) [address], [address] [place] [address] Hemoglobin (Bld) [Mass/Vol] 12.2 g/dL Normal 11.7-15.5 [facility] Comment on above: Performed By: #### C BCA, LIVR, 73935-3, 2498-4, 2731-8, 2284- 8, 2132-9, 83858-4 #### [facility] ([id number]) [address], [address] [place] [address] Lymphocytes (Bld) [#/Vol] 1.4 10*3/uL Normal 1.0-3.5 [facility] Comment on above: Performed By: #### C BCA, LIVR, 36114-6, 2498-4, 2731-8, 2284- 8, 2132-9, 88342-7 #### [facility] ([id number]) [address], [address] [place] [address] Lymphocytes/100 WBC (Bld) 25.7 % Normal [facility] Comment on above: Performed By: #### C BCA, LIVR, 66732-1, 2498-4, 2731-8, 2284- 8, 2132-9, 21710-0 #### [facility] ([id number]) [address], [address] [place] [address] MCH (RBC) [Entitic mass] 30.0 pg Normal 27-34 [facility] Comment on above: Performed By: #### C BCA, LIVR, 57114-6, 2498-4, 2731-8, 2284- 8, 2132-9, 19949-3 #### [facility] ([id number]) [address], [address] [place] [address] MCHC (RBC) [Mass/Vol] 33.0 g/dL Normal 32-36 [facility] Comment on above: Performed By: #### C BCA, LIVR, 48178-0, 2498-4, 2731-8, 2284- 8, 2132-9, 63759-5 #### [facility] ([id number]) [address], [address] [place] [address] MCV (RBC) [Entitic vol] 91 fL Normal 80-100 [facility] Comment on above: Performed By: #### C BCA, LIVR, 80600-7, 2498-4, 2731-8, 2284- 8, 2132-9, 61399-1 #### [facility] ([id number]) [address], [address] [place] [address] Monocytes (Bld) [#/Vol] 0.3 10*3/uL Normal 0-0.9 [facility] Comment on above: Performed By: #### C BCA, LIVR, 02338-0, 2498-4, 2731-8, 2284- 8, 2132-9, 91677-7 #### [facility] ([id number]) [address], [address] [place] [address] Monocytes/100 WBC (Bld) 5.0 % Normal [facility] Comment on above: Performed By: #### C BCA, LIVR, 06530-1, 2498-4, 2731-8, 2284- 8, 2132-9, 94432-6 #### [facility] ([id number]) [address], [address] [place] [address] Neutrophils/100 WBC (Bld) 67.0 % Normal [facility] Comment on above: Performed By: #### C BCA, LIVR, 28044-5, 2498-4, 2731-8, 2284- 8, 2132-9, 78876-1 #### [facility] ([id number]) [address], [address] [place] [address] Platelet mean volume (Bld) [Entitic vol] 8.3 fL Normal 7-12 [facility] Comment on above: Performed By: #### C BCA, LIVR, 95229-6, 2498-4, 2731-8, 2284- 8, 2132-9, 77841-5 #### [facility] ([id number]) [address], [address] [place] [address] Platelets (Bld) [#/Vol] 309 10*3/uL Normal 150-450 [facility] Comment on above: Performed By: #### C BCA, LIVR, 20754-9, 2498-4, 2731-8, 2284- 8, 2132-9, 79607-5 #### [facility] ([id number]) [address], [address] [place] [address] RBC COUNT 4.08 X10E12/L Normal 3.80-5.20 [facility] Comment on above: Performed By: #### C BCA, LIVR, 88689-1, 2498-4, 2731-8, 2284- 8, 2132-9, 56655-7 #### [facility] ([id number]) [address], [facility] [address] [place] [address] WBC (Bld) [#/Vol] 5.6 10*3/uL Normal 4.0-11.0 [facility] Comment on above: Performed By: #### C BCA, LIVR, 70536-4, 2498-4, 2731-8, 2284- 8, 2132-9, 89420-7 #### [facility] ([id number]) [address], [facility] [address] [place] [address] Copper [Mass/Vol]on 11-25-19 24 COPPER 88 ug/dL Normal 80-155 [facility] Comment on above: Result Comment: NOTE This test was developed and its performance characteristics determined by [facility]'s Frank JGerry [facility] Pathology and Laboratory Medicine [place] ([facility] It has not been cleared or approved by the FDA. -[facility] is regulated under CLIA as qualified to perform high-complexity testing. This test is used for clinical purposes. It should not be regarded as investigational or for research. Test Performed By: [facility] [employer] [address] [place] [address] [employer]iner Batch Mixer: Travon Jose III, M.D. CLIA #[id number] Performed By: #### L IVR, TSHR #### [facility] ([id number]) [address], [address] [place] [address] Folate [Mass/Vol]on 11-25-19 FOLIC ACID >25.0 Normal >5.8 [facility] Comment on above: Result Comment: NEW REFERENCE RANGE Performed By: #### C BCA, LIVR, 16339-6, 2498-4, 2731-8, 2284-8, 2132-9, 39423-7 #### [facility] ([id number]) [address], [address] [place] [address] IRONon 11-25-2023 Iron [Mass/Vol] 109 ug/dL Normal 50-170 [facility] Comment on above: Performed By: #### C BCA, LIVR, 23721-8, 2498-4, 2731-8, 2284- 8, 2132-9, 49904-9 #### [facility] ([id number]) [address], [address] [place] [address] LIVER PANELon 11-25-2023 Albumin [Mass/Vol] 3.9 g/dL Normal 3.2-5.3 [facility] Comment on above: Performed By: #### C BCA, LIVR, 30289-0, 2498-4, 2731-8, 2284- 8, 2132-9, 43525-2 #### [facility] ([id number]) [address], [address] [place] [address] ALP [Catalytic activity/Vol] 70 U/L Normal 39-130 [facility] Comment on above: Performed By: #### C BCA, LIVR, 02059-3, 2498-4, 2731-8, 2284- 8, 2132-9, 66871-8 #### [facility] ([id number]) [address], [address] [place] [address] ALT [Catalytic activity/Vol] 37 U/L High 0-31 [facility] Comment on above: Performed By: #### C BCA, LIVR, 42193-0, 2498-4, 2731-8, 2284- 8, 2132-9, 95499-0 #### [facility] ([id number]) [address], [address] [place] [address] AST [Catalytic activity/Vol] 19 U/L Normal 0-41 [facility] Comment on above: Performed By: #### C BCA, LIVR, 16222-1, 2498-4, 2731-8, 2284- 8, 2132-9, 68263-8 #### [facility] ([id number]) [address], [address] [place] [address] Bilirubin [Mass/Vol] 0.4 mg/dL Normal 0.3-1.2 [facility] Comment on above: Performed By: #### C BCA, LIVR, 13942-2, 2498-4, 2731-8, 2284- 8, 2132-9, 84550-7 #### [facility] ([id number]) [address], [address] [place] [address] Bilirubin.direct [Mass/Vol] 0.1 mg/dL Normal 0.0-0.4 [facility] Comment on above: Performed By: #### C BCA, LIVR, 73965-9, 2498-4, 2731-8, 2284- 8, 2132-9, 43814-6 #### [facility] ([id number]) [address], [address] [place] [address] Protein [Mass/Vol] 6.8 g/dL Normal 6.0-8.0 [facility] Comment on above: Performed By: #### C BCA, LIVR, 52530-8, 2498-4, 2731-8, 2284- 8, 2132-9, 67500-6 #### [facility] ([id number]) [address], [address] [place] [address] Parathyrin.intact [Mass/Vol] on 11-25-2023 PTH INTACT 43 pg/mL Normal 12-88 [facility] Comment on above: Performed By: #### C BCA, LIVR, 53672-0, 2498-4, 2731-8, 2284- 8, 2131-9, 19009-7 #### [facility] ([id number]) [address], [address] [place] [address] VITAMIN B12on 11-25-2023 Cobalamin (Vitamin B12) [Mass/Vol] 482 pg/mL Normal 180-914 [facility] Comment on above: Performed By: #### C BCA, LIVR, 91432-6, 2498-4, 2731-8, 2284- 8, 2131-9, 62244-3 #### [facility] ([id number]) [address], [address] [place] [address] Vitamin D+Metabolites [Mass/ Vol]on 11-25-2023 VITAMIN D 25 HYD TOT 37.6 ng/mL Normal 30-100 [facility] Comment on above: Result Comment: Vitamin D status 25 [place] Vitamin D Deficiency <20 ng/mL Insufficiency 20-29 ng/mL Sufficiency 30-100 ng/mL Toxicity >100 ng/mL NOTE: A pediatric reference range has not been established by the manager supply chain of this kit. The [place] [employer] recommends a Vitamin D level of = or >20ng/mL in infants and children. Performed By: #### C BCA, LIVR, 56374-4, 2498-4, 2731-8, 2284-8, 2131-9, 45146-6 #### [facility] ([id number]) [address], [address] [place] [address] Zinc [Mass/Vol]on 03-25-2024 ZINC 59 ug/dL Low 60-120 [facility] Comment on above: Result Comment: NOTE This test was developed and its performance characteristics determined by [facility]'s Frank Hernandez [facility] Pathology and Laboratory Medicine [place] ([facility]). It has not been cleared or approved by the FDA. [facility] is regulated under CLIA as qualified to perform high-complexity testing. This test is used for clinical purposes. It should not be regarded as investigational or for research. Test Performed By: [facility] [address] [place] [address] [employer] Batch Mixer: Travon Jose III, M.D. CLIA #[id number] Performed By: #### L IVR, TSHR #### [facility] ([id number]) [address] [place] [address] [address] [place] [address] XR hip RT min 2V(w/wo pelvis )*on 11-14-2023 XR hip RT min 2V(w/wo pelvis)* [facility] [place] [address] [place] [address] XRay Report Signed Patient: Michelle Rivera MR#: [id number] 82 : 1985 Acct:[id number] Age/Sex: 38 / F ADM Date: 11/14/23 Loc: [facility] Room: Type: [facility] Attending Dr: Ed Malhotra MD Copies to: [...] Gordo Escalante M.D.11/14/2023 2:25 PM Dictation Location: RADIO-PC-07 Transcribed By: CHIKI 11/14/23 142 Dictated By: Gordo Escalante II, MD 11/14/231422 Signed By: 11/14/23 142 Normal [facility] XR lumbar spine AP/LAT/FLX/E XTon 11-14-2023 XR lumbar spine AP/LAT/FLX/EXT [place] [address] XRay Report Signed Patient: Michelle Rivera MR#: [id number] [birth year] : 1985 Acct:[id number] Age/Sex: 38 / F ADM Date: 11/14/23 Loc: [facility] Room: Type: [facility] Attending Dr: Ed Malhotra MD Copies to: [...] Gordo Escalante M.D.11/14/2023 2:23 PM Dictation Location: RADIO-PC-07 Transcribed By: [facility] 11/14/23 142 Dictated By: Gordo Escalante II, MD 11/14/231420 Signed By: 11/14/23 142 Normal [facility] Influenza virus B Ag [Presen ce] in Upper respiratory specimen by Rapid immunoassayon 11-11-2023 FLUBV Ag IA.rapid Ql (Nph) Negative [facility] No Panel Informationon 11-10 Influenza Type A (Rapid) Negative [facility] POC SARS CoV-2 Antigen Negative [facility] No Panel InformationOrdered By: Lissa Gifford on 11-11-2023 Quick Strep (POC) [facility] LIVER PANELon 08-29-2023 Albumin [Mass/Vol] 4.0 g/dL Normal 3.2-5.3 [facility] Comment on above: Performed By: #### L IVR, TSHR #### [facility] ([id number]) [address], [address] [place] [address] ALP [Catalytic activity/Vol] 83 U/L Normal 39-130 [facility] Comment on above: Performed By: #### L IVR, TSHR #### [facility] ([id number]) [address], [address] [place] [address] ALT [Catalytic activity/Vol] 29 U/L Normal 0-31 [facility] Comment on above: Performed By: #### L IVR, TSHR #### [facility] ([id number]) [address], [address] [place] [address] AST [Catalytic activity/Vol] 16 U/L Normal 0-41 [facility] Comment on above: Performed By: #### L IVR, TSHR #### [facility] ([id number]) [address], [address] [place] [address] Bilirubin [Mass/Vol] 0.5 mg/dL Normal 0.3-1.2 [facility] Comment on above: Performed By: #### L IVR, TSHR #### [facility] ([id number]) [address], [address] [place] [address] Bilirubin.direct [Mass/Vol] 0.1 mg/dL Normal 0.0-0.4 [facility] Comment on above: Performed By: #### L IVR, TSHR #### [facility] ([id number]) [address], [address] [place] [address] Protein [Mass/Vol] 6.6 g/dL Normal 6.0-8.0 [facility] Comment on above: Performed By: #### L IVR, TSHR #### [facility] ([id number]) [address], [address] [place] [address] TSH WITH REFLEXon 08-29-2023 TSH 1.17 uIU/mL Normal 0.49-4.67 [facility] Comment on above: Performed By: #### L IVR, TSHR #### [facility] ([id number]) [address], [address] [place] [address] CNPIdalia 07-05-2023 [facility] MICHELLE RIVERA ([id number]) 1985 F Date Time Provider Department 07/05/23 FRANK NEGRON During your visit today, we recorded the following information about you: Yamile Castelan 07/05/2023 3:37 PM Signed I have tried to reach patient multiple times. Phone goes to [employer]. I sent 2 my chart messages. I [...] Status:Closed by YAMILE CASTELAN on 07/05/23 Normal [facility] Cytology Cervical or vaginal smear or scraping studyon 06-20-2023 [facility] CNOVon 05-03-2023 CNOV Office Visit (ORAVON ) MICHELLE RIVERA ([id number]) 1985 F Date Time Provider Department 05/03/23 9:45 AM FRNAK NEGRON During your visit today, we recorded the following information about you: Weight Height 77.6 kg 1.664 m Frank Negron DO 05/03/2023 10:17 AM Signed Lateral epicondylitis of right elbow (primary encounter diagnosis) Minimally Invasive Tenotomy Informed Consent Consent Obtained: Written [place] Protocol A moment to CARE was completed. [...] Jason A, DO 05/03/2023 9:51 AM Signed [facility] POST-PROCEDURE INSTRUCTIONS 1. WOUND CARE - Keep [...] Best way to connect would be via Archsy or directly call Yamile at [phone]. If unable to connect, please proceed to [...] and beyond. Thank you for choosing the [facility] Medical Orthopedic team for your care. Frank Negron D.O. Sports AND Medical Orthopaedics [place] (more content not included)... Normal [facility] ELBOW RT (POC) HAYDEE USE ON Kim 05-03-2023 [facility] CNTHERAPYon 03-21-2023 CNTHERAPY OT/PT/Speech Visit ( CHRISTINA) MICHELLE RIVERA ([id number]) 1985 F Date Time Provider Department 03/21/23 8:00 AM MARCELINA MCMANUS Date Time Provider Department Center 03/21/2023 8:00 AM [id number], KAREN STEPHANIEJeyson Kenny Harrell Reason for Visit: OT Discharge [750] Occupational [...] 40 mg by mouth once daily. Normal [facility] CNTHERAPYon 03-07-2023 CNTHERAPY OT/PT/Speech Visit ( LOOTRM) MICHELLE RIVERA ([id number]) 1985 F Date Time Provider Department 03/07/23 11:00 AM ESTEPHANIA WHITT Date Time Provider Department [place] 03/07/2023 11:00 AM [id number] WHITT Sharri Reason for Visit: Occupational Therapy [504] Primary [...] by mouth once daily. Letter Text Normal [facility] CNTHERAPYon 03-01-2023 CNTHERAPY OT/PT/Speech Visit ( KATTOTR) MICHELLE RIVERA ([id number]) 1985 F Date Time Provider Department 03/01/23 8:00 AM ESTEPHANIA WHITT Date Time Provider Department [place] 03/01/2023 8:00 AM [id number] WHITT Reason for Visit: Occupational Therapy [504] [...] by mouth once daily. Letter Text Normal [facility] CNTHERAPYon 02-22-2023 CNTHERAPY OT/PT/Speech Visit ( LOOTRM) MICHELLE RIVERA ([id number]) 1985 F Date Time Provider Department 02/22/23 9:30 AM ESTEPHANIA WHITT Date Time Provider Department Center 02/22/2023 9:30 AM [id number] WHITT Reason for Visit: OT EVAL [748] [...] PG 1 OF 4 last updated by ANIYAH Drew on 02/22/2023 10:16 AM Annotated image of OT HAND EPICONDYLITIS LATERAL/MEDIAL PG 2 OF 4 last updated by ANIYAH Drew on 02/22/2023 10:16 AM Annotated image of OT HAND EPICONDYLITIS LATERAL/MEDIAL PG 3 OF 4 last updated by Estephania Whitt OTR/Emely on 02/22/2023 10:16 AM Annotated image of OT HAND EPICONDYLITIS LATERAL/MEDIAL PG 4 OF 4 last updated by Estephania Whitt OTR/Emely on 02/22/2023 10:16 AM Annotated image of OT HAND EPICONDYLITIS LATERAL/MEDIAL PG 1 OF 4 last updated by Estephania Whitt OTR/Emely on 02/22/2023 10:21 AM Letter Text Normal [facility] CNOVon 02-14-2023 CNOV Office Visit (ORAVON ) MICHELLE RIVERA ([id number]) 1985 F Date Time Provider Department 02/14/23 11:15 AM FRANK NEGRON During your visit today, we recorded the following information about you: Frank Negron DO 02/14/2023 12:57 PM Signed [facility] Office Visit Documentation Note [facility] Sports Medicine Orthopaedic and Rheumatologic [place] REASON FOR VISIT / CHIEF COMPLAINT SERVICE DATE: February 14, 2023 PCP: Bernarda Pinto [facility] CHIEF COMPLAINT: Michelle Rivera is a 38 [...] plan as detailed above. Frank Negron D.O. [facility] Orthopaedic and Rheumatologic [place] Team Physician, [facility] Consulting Physician, [facility] Yamile Reddy, Adult Health Clinical Nurse Specialist [phone] Allergies As of Date: 02/14/2023 Noted Allergy Reaction PENICILLINS 08/20/2022 4 - Hives SULFA (SULFONAMIDE ANTIBIOTICS) 08/20/2022 4 - Hives Date Reviewed: 02/14/2023 Reviewed by: Edy Agarwal MA - Fully Assessed Reason for Visit: Established Patient [175] Primary Visit Diagnosis:Right elbow pain [M25.521] Other Visit Diagnosis:Lateral epicondylitis of right elbow [M77.11] Order(s):US ELBOW RT (POC) HAYDEE USE ONLY [3083297] Order #: [id number]. #:[id number]: 1 methylPREDNISolone (MEDROL DOSE-PACK) 4 mg Dose-PackAs Instructed per packageDisp: 1 tabletRfl: 0 CONSULT TO DROPHAMMER OPERATOR [19990910] Order #: [id number]: 1 FUTURE Prescriptions as of 02/14/2023 - [...] Service: OFFICE/OUTPATIENT ESTABLISHED MOD MDM 30-39 MIN [29584] Encounter Status:Closed by FRANK NEGRON on 02/14/23 Normal [facility] ELBOW RT (POC) HAYDEE USE ON Kim 02-14-2023 [facility] 01-24-2023 CNPN Telephone (ORQ) MICHELLE RIVERA ([id number]) 1985 F Date Time Provider Department 01/24/23 FRANK NEGRON ORQ During your visit today, we recorded the following information about you: Amy Wilson 01/24/2023 10:32 AM Signed Pt requesting OT order for elbow pain. It is affecting her job. Pt would like to complete this with a facility in [place], [place]. Pt does not have the fax number but will try to get this and call us back. [facility] OT phone [phone] Patient has been identified by name and birthdate. Duration of symptoms: N/A Person calling: self Call patient at: on cell [phone] (home) Was an appointment scheduled: No Closing statement: Results or non-symptom based questions: Thank you for calling [facility], your call will be returned within [...] Encounter Status:Closed by LESLY SHERMAN on 02/01/23 [facility] RAYMONDon 12-20-2022 CNOV Office Visit (ORAVON ) MICHELLE RIVERA ([id number]) 1985 F Date Time Provider Department 12/20/22 3:00 PM FRANK NEGRON During your visit today, we recorded the following information about you: Frank Negron DO 12/20/2022 12:52 PM Signed Right elbow pain (primary encounter diagnosis) Lateral epicondylitis of both elbows Biologics Injection: R elbow Previously completed treatments/injections: Platelet Rich Plasma Informed Consent Consent Obtained: Written [place] Protocol A moment to CARE was completed. [...] Frank Negron DO Referring Provider: FRANK NEGRON [[id number]] Allergies As of Date: 12/20/2022 Noted Allergy Reaction PENICILLINS 08/20/2022 4 - Hives SULFA (SULFONAMIDE ANTIBIOTICS) 08/20/2022 4 - Hives Date Reviewed: 12/20/2022 Reviewed by: Edy Agarwal MA - Fully Assessed Reason for Visit: Established Patient [175] Primary Visit Diagnosis:Right elbow pain [M25.521] Other Visit Diagnosis:Lateral epicondylitis of both elbows [M77.11, M77.12] Order(s):US ELBOW RT (POC) HAYDEE USE ONLY [8006289] Order #: [id number]: 1 acetaminophen-codeine (TYLENOL-CODEINE #3) 300-30 mg per tabletTake 1 tablet by mouth every 4 hours as needed for up to 5 days.Disp: 12 tabletRfl: 0 Biologics Injection: R elbow [CUM923] Order #: [id number] [] lidocaine (PF) 10 mg/mL (1 %) [...] Status:Closed by FRANK NEGRON on 12/20/22 Normal [facility] US ELBOW RT (POC) HAYDEE USE ON Kim 12-20-2022 [facility] CNOVon 12-04-2022 CNOV Office Visit (ORFWHP ) MICHELLE RIVERA ([id number]) 1985 F Date Time Provider Department 12/04/22 10:00 AM FRANK NEGRON ORFWHP During your visit today, we recorded the following information about you: Frank Negron DO 12/04/2022 10:03 AM Signed [facility] Office Visit Documentation Note [facility] Sports Medicine Orthopaedic and Rheumatologic [place] HISTORY OF PRESENT ILLNESS (HPI) SERVICE DATE: December 04, 2022 PCP: No primary care provider on file. CHIEF COMPLAINT / REASON FOR VISIT Michelle Emely Miguel is a 37 year old female who [...] EXCEPT FOR MINIMAL LATERAL EPICONDYLAR ENTHESOPATHY BILATERALLY Test Pilot: SHAYNE Transcribe Date/Time: Jul 20 2022 10:34A ... Last MRI Elbow - Impression Only MRI ELBOW WO IVCON RT Exam End: 09/11/2022 11:27 AM (Final result) Impression: IMPRESSION: 1. Tendinosis and a small partial tear of the common extensor tendon origin. Test Pilot: SHAYNE Transcribe Date/Time: Sep 11 2022 11:42A... [...] with the treatment plan. Frank Negron D.O. [facility] Orthopaedic and Rheumatologic [employer] Designer, [facility] AND T.E.A.M. Program Team Physician, [facility] [employer] Consulting Physician, [place] Lexi Reddy, Adult Health Clinical Nurse Specialist [phone] Allergies As of Date: 12/04/2022 Noted Allergy [...] vits 4/ir (more content not included)... Normal [facility] ELBOW LTon 11-16-2022 US ELBOW LT * [...] OF THE RADIAL COLLATERAL LIGAMENT, ALSO UNCHANGED. Test Pilot: SHAYNE Transcribe Date/Time: Nov 16 2022 11:03A Dictated by : SETH JAQUEZ MD This examination was interpreted and the report reviewed and electronically signed by: SETH JAQUEZ MD on Nov 16 2022 1:00PM EST [id number] Normal [facility] CNOVon 09-17-2022 CNOV Office Visit (ORAVON ) MICHELLE RIVERA ([id number]) 1985 F Date Time Provider Department 09/17/22 10:15 AM FRANK NEGRON During your visit today, we recorded the following information about you: Weight Height 117.9 kg 1.664 m Frank Negron DO 09/17/2022 10:48 AM Signed [facility] Office Visit Documentation Note [facility] Sports Medicine Orthopaedic and Rheumatologic [place] HISTORY OF PRESENT ILLNESS (HPI) SERVICE DATE: September 17, 2022 PCP: No primary care provider on file. CHIEF COMPLAINT / REASON FOR VISIT Michellemely Rivera is a 37 year old female [...] EXCEPT FOR MINIMAL LATERAL EPICONDYLAR ENTHESOPATHY BILATERALLY Test Pilot: SHAYNE Transcribe Date/Time: Jul 20 2022 10:34A ... Last MRI Elbow - Impression Only MRI ELBOW WO IVCON RT Exam End: 09/11/2022 11:27 AM (Final result) Impression: IMPRESSION: 1. Tendinosis and a small partial tear of the common extensor tendon origin. Test Pilot: SHAYNE Transcribe Date/Time: Sep 11 2022 11:42A... ASSESSMENT / PLAN CLINICAL IMPRESSION / ASSESSMENT: CLINICAL IMPRESSION / ASSESSMENT: (M77.11, M77.12) Lateral epicondylitis of both elbows (primary encounter diagnosis) (M25.522) Left elbow pain (M25.521) Right elbow pain (M79.7) Fibromyalgia RECOMMENDATION / PLAN: Counseling / Referral A total of 20 minutes were spent supg-pb-popp with the patient during this encounter and [...] include #1 bilateral PRP injections at $1500 [id number] Option #2 bilateral minimally invasive percutaneous tendon debridement Option #3 surgical consult.. Follow up: Okay to send a Archsy note on my recommendation after ultrasound of the left lateral elbow for evaluation of chronicity of common extensor tendon injury. Written instructions (see patient instructions) and verbal health education given to patient. Patient verbalizes understanding and agrees with the treatment plan. Frank Negron D.O. [facility] Orthopaedic and Rheumatologic Mark Up Designer, [facility] AND T.E.A.M. Program Team Physician, [facility] [employer] Consulting Physician, [place] Lexi Reddy, Adult Health Clinical Nurse Specialist [phone] Frank Negron, 09/17/2022 10:35 AM Signed IMAGING AND LABORATORY Dr. Negron has requested further imaging to help coordinate your individualized plan of care. Most of these images will need to be appropriately scheduled. MRI/CT/Xray : Please stop at the front line leader to coordinate timing and scheduling of your image. IF your image is completed outside of the [facility], two steps will need to be taken and presented to Dr. Negron's office for review. 1. Gather a CD copy of your image at the time of service. 2. Gather Radiology Report, when available. Reports can be faxed to [phone]. [place] Ultrasound : Please call [phone] to schedule your ultrasound appointment. LAB Requests: These can be completed at your nearest [facility] LAB facility. Please allow for up to one week for results to finalize. Follow up: You may request [employer] release of your imaging at 3 DAYS after your imaging appointment. Dr. Negron will often read the image and make a recommendation through [employer]. Please understand, that due to the complexity of the presenting issue, many patients will need a physical examination even after their imaging, which would require a (more content not included)... Normal [facility] [place] 09-17-2022 AMAYA Telephone (RULTTB) MICHELLE RIVERA ([id number]) 1985 F Date Time Provider Department 09/17/22 ALONDRA XANDER LORENTB During your visit today, we recorded the following information about you: Xander Cantu 09/17/2022 10:49 AM Addendum Visit Type: ANY [...] for their MSK US on 11/16 at [place]. Allergies As of Date: 09/17/2022 Noted Allergy [...] Status:Closed by KESHAWN CASTRO on 09/17/22 Normal [facility] MR Elbow - left WO contrasto n 09-11-2022 IMPRESSION: 1. Large partial tear of the common extensor tendon origin with associated tearing of the radial collateral ligament. Test Pilot: SHAYNE Transcribe Date/Time: Sep 11 2022 11:29A Dictated by : ASHLEY MCCARTY MD This examination was interpreted and the report reviewed and electronically signed by: ASHLEY MCCARTY MD on Sep 11 2022 11:33AM [facility] DIVISION OF RADIOLOGY * * *Final Report* * * DATE OF EXAM: Sep 11 2022 10:52AM LN 0188 - MRI ELBOW WO IVCON LT [...] effusion nor synovitis. DIVISION OF RADIOLOGY Provider, [facility] - 09/11/2022 * * *Final Report* * * DATE OF EXAM: Sep 11 2022 10:52AM [facility] 0188 - MRI ELBOW WO IVCON [...] associated tearing of the radial collateral ligament. Test [facility] Transcribe Date/Time: Sep 11 2022 11:29A Dictated by : ASHLEY MCCARTY MD This examination was interpreted and the report reviewed and electronically signed by: ASHLEY MCCARTY MD on Sep 11 2022 11:33AM EST [facility] MR Elbow - left WO contrastO rdered By: [facility] Provider on 09-11-2022 [facility] MR Elbow - right WO contrast on 09-11-2022 IMPRESSION: 1. Tendinosis and a small partial tear of the common extensor tendon origin. Test Pilot: [facility] Transcribe Date/Time: Sep 11 2022 11:42A Dictated by : ASHLEY MCCARTY MD This examination was interpreted and the report reviewed and electronically signed by: ASHLEY MCCARTY MD on Sep 11 2022 11:47AM EST DIVISION OF RADIOLOGY * * *Final Report* * * DATE OF EXAM: Sep 11 2022 11:27AM [facility] 0189 - MRI ELBOW WO IVCON [...] effusion nor synovitis. DIVISION OF RADIOLOGY Provider, [facility] - 09/11/2022 * * *Final Report* * [...] tear of the common extensor tendon origin. Test Pilot: SHAYNE Transcribe Date/Time: Sep 11 2022 11:42A Dictated by : ASHLEY MCCARTY MD This examination was interpreted and the report reviewed and electronically signed by: ASHLEY MCCARTY MD on Sep 11 2022 11:47AM [facility] MR Elbow - right WO contrast Ordered By: Ccf Provider on 09-11-2022 [facility] MRI ELBOW WO IVCON LTon 09-02 MRI ELBOW WO IVCON LT * * *Final Report* * * DATE OF EXAM: Sep 11 2022 10:52AM LN 0188 - MRI ELBOW WO IVCON LT [...] associated tearing of the radial collateral ligament. Test Pilot: [facility] Transcribe Date/Time: Sep 11 2022 11:29A Dictated by : ASHLEY MCCARTY MD This examination was interpreted and the report reviewed and electronically signed by: ASHLEY MCCARTY MD on Sep 11 2022 11:33AM EST [id number] Normal [facility] MRI ELBOW WO IVCON RTon 09-02 MRI ELBOW WO IVCON RT * * *Final Report* * * DATE OF EXAM: Sep 11 2022 11:27AM [facility] 0189 - MRI ELBOW WO IVCON [...] tear of the common extensor tendon origin. Test Pilot[facility] Transcribe Date/Time: Sep 11 2022 11:42A Dictated by : ASHLEY MCCARTY MD This examination was interpreted and the report reviewed and electronically signed by: ASHLEY MCCARTY MD on Sep 11 2022 11:47AM EST [id number] Normal [facility] No Panel Informationon 09-11 Radiology Study observation (narrative) [facility] 25([place])D3 [facility] 25-hydroxyvitamin D3 [Mass/Vol] 37.9 ng/mL Normal 31.0-80.0 [facility] Comment on above: Order Comment: Speci men Type: BLOOD SPECIMEN Ordering Facility: [facility] Address: [address] [place] [phone] Result Comment: Clas sification of 25 [place] Vitamin D status: Deficiency/Insufficiency: < or = 30 ng/ml. Sufficiency/Optimal Levels: 31-80 ng/mL Toxicity: > 100 ng/mL. Test performed by chemiluminescent immunoassay. Performed By: #### 1 989-3 #### [facility] CLIA [id number] [address] [place] [address] [place] FELICIANO BY IFA WITH REFLEXon Nuclear Ab IF (S) [Titer] Negative Normal Negative [facility] Comment on above: Order Comment: Serena franks Type: BLOOD SPECIMEN Ordering Facility: [facility] Address: [address] [address] Result Comment: Anti -nuclear antibody test is used as an aid in diagnosis of systemic autoimmune diseases. Where positive and clinically warranted, follow-up using disease-specific testing is recommended. Low positive titers are not uncommon with advanced age, certain chronic infections, and malignancies among others. Test methodology: Indirect fluorescence immunoassay (IFA) using HEp-2 cells. Performed By: #### A NAIFR #### [facility] CLIA [id number] [address] [place] [address] OF I[place] C-REACTIVE PROTEIN (CRP)on 1 10-21-2021 CRP [Mass/Vol] 2.8 mg/dL High <0.9 mg/dL [facility] CBC W Auto Differential pane l (Bld)on 08-20-2022 Basophils (Bld) [#/Vol] 0.03 10*3/uL Normal <0.11 [facility] Comment on above: Order Comment: Serena franks Type: BLOOD SPECIMEN Ordering Facility: [facility] Address: [address] [place] [address] Performed By: #### 5 7021-8 #### [facility] CLIA [id number] [address] [id number] [place] Basophils/100 WBC (Bld) 0.1 % Normal [facility] Comment on above: Order Comment: Serena franks Type: BLOOD SPECIMEN Ordering Facility: [facility] Address: [address] [place] [address] Performed By: #### 5 7021-8 #### [facility] CLIA [id number] [address] [place] [address] [place] Differential cell count method Nom (Bld) Auto Normal [facility] Comment on above: Order Comment: Serena franks Type: BLOOD SPECIMEN Ordering Facility: [facility] Address: [address] [address] Performed By: #### 5 7021-8 #### [facility] [place] [id number] [address] [place] [address] [place] Eosinophils (Bld) [#/Vol] 10*3/uL Normal <0.46 [facility] Comment on above: Order Comment: Speci men Type: BLOOD SPECIMEN Ordering Facility: [facility] Address: [address] [address] Performed By: #### 5 7021-8 #### [facility] [place] [id number] [address] OF [place] Eosinophils/100 WBC (Bld) 0.1 % Normal [facility] Comment on above: Order Comment: Speci men Type: BLOOD SPECIMEN Ordering Facility: [facility] Address: [address] [address] Performed By: #### 5 7021-8 #### [facility] [place] [id number] [address] STATES [place] Erythrocyte distribution width (RBC) [Ratio] 13.1 % Normal 11.5-15.0 [facility] Comment on above: Order Comment: Speci men Type: BLOOD SPECIMEN Ordering Facility: [facility] Address: [address] [address] Performed By: #### 5 7021-8 #### [facility] [place] [id number] [address] [place] Hematocrit (Bld) [Volume fraction] 40.2 % Normal 36.0-46.0 [facility] Comment on above: Order Comment: Speci men Type: BLOOD SPECIMEN Ordering Facility: [facility] Address: [address] [address] Performed By: #### 5 7021-8 #### [facility] [place] [id number] [address] [place] [address] [place] Hemoglobin (Bld) [Mass/Vol] 13.0 g/dL Normal 11.5-15.5 [facility] Comment on above: Order Comment: Speci men Type: BLOOD SPECIMEN Ordering Facility: [facility] Address: [address] [address] Performed By: #### 5 7021-8 #### [facility] CLIA [id number] [address] [place] [address] [place] Immature granulocytes (Bld) [#/Vol] 0.13 10*3/uL High <0.10 [facility] Comment on above: Order Comment: Speci men Type: BLOOD SPECIMEN Ordering Facility: [facility] Address: [address] [address] Performed By: #### 5 7021-8 #### [facility] [place] [id number] [address] [place] [address] [place] Immature granulocytes/100 WBC (Bld) 0.6 % Normal [facility] Comment on above: Order Comment: Speci men Type: BLOOD SPECIMEN Ordering Facility: [facility] Address: [address] Performed By: #### 5 7021-8 #### [facility] [place] [id number] [address] [place] [address] [place] Lymphocytes (Bld) [#/Vol] 1.68 10*3/uL Normal 1.00-4.00 [facility] Comment on above: Order Comment: Speci men Type: BLOOD SPECIMEN Ordering Facility: [facility] Address: [address] Performed By: #### 5 7021-8 #### [facility] [place] [id number] [address] [address] [id number] [place] Lymphocytes/100 WBC (Bld) 7.9 % Normal [facility] Comment on above: Order Comment: Speci men Type: BLOOD SPECIMEN Ordering Facility: [facility] Address: [address] [address] Performed By: #### 5 7021-8 #### [facility] [place] [id number] [address] [place] [address] [place] MCH (RBC) [Entitic mass] 28.9 pg Normal 26.0-34.0 [facility] Comment on above: Order Comment: Speci men Type: BLOOD SPECIMEN Ordering Facility: [facility] Address: [address] [address] Performed By: #### 5 7021-8 #### [facility] CLIA [id number] [address] [place] [address] [place] MCHC (RBC) [Mass/Vol] 32.3 g/dL Normal 30.5-36.0 [facility] Comment on above: Order Comment: Speci men Type: BLOOD SPECIMEN Ordering Facility: [facility] Address: [address] [address] Performed By: #### 5 7021-8 #### [facility] [place] [id number] [address] [place] [address] [place] MCV (RBC) [Entitic vol] 89.3 fL Normal 80.0-100.0 [facility] Comment on above: Order Comment: Speci men Type: BLOOD SPECIMEN Ordering Facility: [facility] Address: [address] [address] Performed By: #### 5 7021-8 #### [facility] IA [id number] [address] [place] [address] [place] Monocytes (Bld) [#/Vol] 1.22 10*3/uL High <0.87 [facility] Comment on above: Order Comment: Speci men Type: BLOOD SPECIMEN Ordering Facility: [facility] Address: [address] [address] Performed By: #### 5 7021-8 #### [facility] CLIA [id number] [address] [place] [address] OF I[place] Monocytes/100 WBC (Bld) 5.7 % Normal [facility] Comment on above: Order Comment: Speci men Type: BLOOD SPECIMEN Ordering Facility: [facility] Address: [address] [address] Performed By: #### 5 7021-8 #### [facility] CLIA [id number] [address] [place] [address] [place] Neutrophils (Bld) [#/Vol] 18.27 10*3/uL High 1.45-7.50 [facility] Comment on above: Order Comment: Speci men Type: BLOOD SPECIMEN Ordering Facility: [facility] Address: [address] Performed By: #### 5 7021-8 #### [facility] [place] [id number] [address] [place] [address] [place] Neutrophils/100 WBC (Bld) 85.6 % Normal [facility] Comment on above: Order Comment: Speci men Type: BLOOD SPECIMEN Ordering Facility: [facility] Address: [address] [address] Performed By: #### 5 7021-8 #### [facility] IA [id number] [address] [place] [address] [place] Nucleated RBC (Bld) [#/Vol] 10*3/uL Normal <0.01 [facility] Comment on above: Order Comment: Speci men Type: BLOOD SPECIMEN Ordering Facility: [facility] Address: [address] [address] Performed By: #### 5 7021-8 #### [facility] IA [id number] [address] [address] [id number] [place] Nucleated RBC/100 WBC (Bld) [Ratio] 0.0 /100 WBC Normal [facility] Comment on above: Order Comment: Speci men Type: BLOOD SPECIMEN Ordering Facility: [facility] Address: [address] [place], [place] [address] Performed By: #### 5 7021-8 #### [facility] [place] [id number] [address] [place] [address] [place] Platelet mean volume (Bld) [Entitic vol] 9.1 fL Normal 9.0-12.7 [facility] Comment on above: Order Comment: Speci men Type: BLOOD SPECIMEN Ordering Facility: [facility] Address: [address] [address] Performed By: #### 5 7021-8 #### [facility] CLIA [id number] [address] [facility] [address] [place] Platelets (Bld) [#/Vol] 358 10*3/uL Normal 150-400 [facility] Comment on above: Order Comment: Speci men Type: BLOOD SPECIMEN Ordering Facility: [facility] Address: [address] [address] Performed By: #### 5 7021-8 #### [facility] IA [id number] [address] [place] [address] [place] RBC (Bld) [#/Vol] 4.50 10*6/uL Normal 3.90-5.20 [facility] Comment on above: Order Comment: Speci men Type: BLOOD SPECIMEN Ordering Facility: [facility] Address: [address] Performed By: #### 5 7021-8 #### [facility] IA [id number] [address] [place] [address] [place] WBC (Bld) [#/Vol] 21.35 10*3/uL High 3.70-11.00 [facility] Comment on above: Order Comment: Speci men Type: BLOOD SPECIMEN Ordering Facility: [facility] Address: [address] Performed By: #### 5 7021-8 #### [facility] CLIA [id number] [address] [facility] [place] [address] [place] Basophils (Bld) [#/Vol] 0.03 10*3/uL <0.11 k/uL [facility] Basophils/100 WBC (Bld) 0.1 % [facility] Differential cell count method Nom (Bld) Auto [facility] Eosinophils (Bld) [#/Vol] <0.46 k/uL [facility] Eosinophils/100 WBC (Bld) 0.1 % [facility] Erythrocyte distribution width (RBC) [Ratio] 13.1 % 11.5 - 15.0 % [facility] Hematocrit (Bld) [Volume fraction] 40.2 % 36.0 - 46.0 % [facility] Hemoglobin (Bld) [Mass/Vol] 13.0 g/dL 11.5 - 15.5 g/dL [facility] Immature granulocytes (Bld) [#/Vol] 0.13 10*3/uL High <0.10 k/uL [facility] Immature granulocytes/100 WBC (Bld) 0.6 % [facility] Lymphocytes (Bld) [#/Vol] 1.68 10*3/uL 1.00 - 4.00 k/uL [facility] Lymphocytes/100 WBC (Bld) 7.9 % [facility] MCH (RBC) [Entitic mass] 28.9 pg 26.0 - 34.0 pg [facility] MCHC (RBC) [Mass/Vol] 32.3 g/dL 30.5 - 36.0 g/dL [facility] MCV (RBC) [Entitic vol] 89.3 fL 80.0 - 100.0 fL [facility] Monocytes (Bld) [#/Vol] 1.22 10*3/uL High <0.87 k/uL [facility] Monocytes/100 WBC (Bld) 5.7 % [facility] Neutrophils (Bld) [#/Vol] 18.27 10*3/uL High 1.45 - 7.50 k/uL [facility] Neutrophils/100 WBC (Bld) 85.6 % [facility] Nucleated RBC (Bld) [#/Vol] <0.01 k/uL [facility] Nucleated RBC/100 WBC (Bld) [Ratio] 0.0 /100 WBC [facility] Platelet mean volume (Bld) [Entitic vol] 9.1 fL 9.0 - 12.7 fL [facility] Platelets (Bld) [#/Vol] 358 10*3/uL 150 - 400 k/uL [facility] RBC (Bld) [#/Vol] 4.50 10*6/uL 3.90 - 5.20 m/uL [facility] WBC (Bld) [#/Vol] 21.35 10*3/uL High 3.70 - 11.00 k/uL [facility] CRP SerPl-mCncon 08-20-2022 CRP [Mass/Vol] 2.8 mg/dL High <0.9 [facility] Comment on above: Order Comment: Speci men Type: BLOOD SPECIMEN Ordering Facility: [facility] Address: [address] [place] [address] Performed By: #### 2 4328, 1988-01, 3083-09 #### [facility] CLIA [id number] [address] [place] [address] [facility] Comprehensive metabolic 2000 panelon 08-20-2022 Albumin [Mass/Vol] 4.0 g/dL Normal 3.9-4.9 [facility] Comment on above: Order Comment: Speci men Type: BLOOD SPECIMEN Ordering Facility: [facility] Address: [address] [place] [address] Performed By: #### 2 4328, 1988-01, 3083-09 #### [facility] CLIA [id number] [address] [place] [address] [place] ALP [Catalytic activity/Vol] 92 U/L Normal 34-123 [facility] Comment on above: Order Comment: Speci men Type: BLOOD SPECIMEN Ordering Facility: [facility] Address: [address] [place] [address] Performed By: #### 2 4328, 1988-01, 3083-09 #### [facility] CLIA [id number] [address] [place] [address] [place] ALT [Catalytic activity/Vol] 32 U/L Normal 7-38 [facility] Comment on above: Order Comment: Speci men Type: BLOOD SPECIMEN Ordering Facility: [facility] Address: [address] [place] [address] Performed By: #### 2 43238, 1988-01, 3083-09 #### [facility] CLIA [id number] [address] [place] [address] [place] Anion gap [Moles/Vol] 9 mmol/L Normal 9-18 [facility] Comment on above: Order Comment: Speci men Type: BLOOD SPECIMEN Ordering Facility: [facility] Address: [address] Performed By: #### 2 4323-04, 1988-01, 3083-09 #### [facility] CLIA [id number] [address] [place] [address] [place] AST [Catalytic activity/Vol] 16 U/L Normal 13-35 [facility] Comment on above: Order Comment: Speci men Type: BLOOD SPECIMEN Ordering Facility: [facility] Address: [address] Performed By: #### 2 4323-04, 1988-01, 3083-09 #### [facility] CLIA [id number] [address] [place] [address] [place] Bilirubin [Mass/Vol] 0.3 mg/dL Normal 0.2-1.3 [facility] Comment on above: Order Comment: Speci men Type: BLOOD SPECIMEN Ordering Facility: [facility] Address: [address] Performed By: #### 2 4323-04, 1988-01, 3083-09 #### [facility] CLIA [id number] [address] [place] [address] [place] Calcium [Mass/Vol] 8.6 mg/dL Normal 8.5-10.2 [facility] Comment on above: Order Comment: Speci men Type: BLOOD SPECIMEN Ordering Facility: [facility] Address: [address] Performed By: #### 2 4323-04, 1988-01, 3083-09 #### [facility] CLIA [id number] [address] [place] [address] [place] Chloride [Moles/Vol] 98 mmol/L Normal 97-105 [facility] Comment on above: Order Comment: Speci men Type: BLOOD SPECIMEN Ordering Facility: [facility] Address: [address] Performed By: #### 2 8, 3083-09 #### [facility] CLIA [id number] [address] [facility] [place] [address] [place] CO2 [Moles/Vol] 25 mmol/L Normal 22-30 [facility] Comment on above: Order Comment: Speci men Type: BLOOD SPECIMEN Ordering Facility: [facility] Address: [address] [place] [address] Performed By: #### 2 4323-04, 3083-09 #### [facility] CLIA [id number] [address] [facility] [place] [address] [place] Creatinine [Mass/Vol] 0.65 mg/dL Normal 0.58-0.96 [facility] Comment on above: Order Comment: Speci men Type: BLOOD SPECIMEN Ordering Facility: [facility] Address: [address] [place] [address] Performed By: #### 2 4323-04, 1988-01, 3083-09 #### [facility] CLIA [id number] [address] [facility] [place] [address] [place] ESTIMATED GLOMERULAR FILTRATION RATE 118 mL/min/1.73m??? Normal >=60 [facility] Comment on above: Order Comment: Speci men Type: BLOOD SPECIMEN Ordering Facility: [facility] Address: [address] [place] [address] Result Comment: Ana mated Glomerular Filtration Rate [...] reflect actual GFR. Performed By: #### 2 4323-04, 1988-01, 3083-09 #### [facility] CLIA [id number] [address] [facility] [place] [address] [place] Glucose [Mass/Vol] 107 mg/dL High 74-99 [facility] Comment on above: Order Comment: Speci men Type: BLOOD SPECIMEN Ordering Facility: [facility] Address: [place] [address] Result Comment: The [place] [employer] (ADA) provides guidance for cutoff [...] Standards of Medical Care in Diabetes 2016, [place] [employer]. Diabetes Care. 2016.39(Suppl 1). Performed By: #### 2 4323-04, 3083-09 #### [facility] CLIA [id number] [address] [place] [address] [place] Potassium [Moles/Vol] 4.2 mmol/L Normal 3.7-5.1 [facility] Comment on above: Order Comment: Serena franks Type: BLOOD SPECIMEN Ordering Facility: [facility] Address: [place] [address] Performed By: #### 2 4323-04, 3083-09 #### [facility] CLIA [id number] [address] [place] [address] [place] Protein [Mass/Vol] 7.1 g/dL Normal 6.3-8.0 [facility] Comment on above: Order Comment: Serena franks Type: BLOOD SPECIMEN Ordering Facility: [facility] Address: [place] [address] Performed By: #### 2 4323-04, 3083-09 #### [facility] CLIA [id number] [address] [place] [address] [place] Sodium [Moles/Vol] 132 mmol/L Low 136-144 [facility] Comment on above: Order Comment: Speci men Type: BLOOD SPECIMEN Ordering Facility: [facility] Address: [address] [place] [address] Performed By: #### 2 4323-8, 1988-01, 3083-09 #### [facility] CLIA [id number] [place] [address] [place] Urea nitrogen [Mass/Vol] 17 mg/dL Normal 7-21 [facility] Comment on above: Order Comment: Speci men Type: BLOOD SPECIMEN Ordering Facility: [facility] Address: [address] [place] [address] Performed By: #### 2 4323-8, 1988-01, 3083-09 #### [facility] CLIA [id number] [address] [place] [address] [place] Albumin [Mass/Vol] 4.0 g/dL 3.9 - 4.9 g/dL [facility] ALP [Catalytic activity/Vol] 92 U/L 34 - 123 U/L [facility] ALT [Catalytic activity/Vol] 32 U/L 7 - 38 U/L [facility] Anion gap [Moles/Vol] 9 mmol/L 9 - 18 mmol/L [facility] AST [Catalytic activity/Vol] 16 U/L 13 - 35 U/L [facility] Bilirubin [Mass/Vol] 0.3 mg/dL 0.2 - 1 .3 mg/dL [facility] Calcium [Mass/Vol] 8.6 mg/dL 8.5 - 10. 2 mg/dL [facility] Chloride [Moles/Vol] 98 mmol/L 97 - 10 5 mmol/L [facility] CO2 [Moles/Vol] 25 mmol/L 22 - 30 mmol/L [facility] Creatinine [Mass/Vol] 0.65 mg/dL 0.58 - 0.96 mg/dL [facility] Estimated Glomerular Filtration Rate 118 mL/min/1.73m >=60 mL/min/1.7 3m [facility] Glucose [Mass/Vol] 107 mg/dL High 74 - 99 mg/dL [facility] Potassium [Moles/Vol] 4.2 mmol/L 3.7 - 5.1 mmol/L [facility] Protein [Mass/Vol] 7.1 g/dL 6.3 - 8.0 g/dL [facility] Sodium [Moles/Vol] 132 mmol/L Low 136 - 144 mmol/L [facility] Urea nitrogen [Mass/Vol] 17 mg/dL 7 - 21 mg/dL [facility] Cyclic citrullinated peptide IgG Qnon 08-20-2022 [facility] ANTIBODY IGG QUALITATIVE Negative Normal Negative [facility] Comment on above: Order Comment: Speci men Type: BLOOD SPECIMENOrdering Facility: [facility] Address: [address] [place] [address] Performed By: #### 3 2677-7, 05706-7 ####[facility] [id number] [place] [address] [place] ESR Westergren method (Bld) [Velocity]on 08-20-2022 ESR (Bld) [Velocity] 10 mm/h Normal 0-20 [facility] Comment on above: Order Comment: Speci men Type: BLOOD SPECIMEN Ordering Facility: [facility] Address: [address] [place] [address] Performed By: #### 4 537-7 #### [facility] CLIA [id number] [address] [place] [address] [place] Rheumatoid fact SerPl-aCncon 08-20-2022 Rheumatoid factor Qn [IU]/mL Normal <16 [facility] Comment on above: Order Comment: Speci men Type: BLOOD SPECIMEN Ordering Facility: [facility] Address: [address] [place] [address] Performed By: #### 1 1572-5 #### [facility] CLIA [id number] [address] [place] [address] [place] URIC ACID BLOODon 08-20-2022 Urate [Mass/Vol] 2.9 mg/dL 2.5 - 6.6 mg/dL [facility] Urate SerPl-mCncon Urate [Mass/Vol] 2.9 mg/dL Normal 2.5-6.6 [facility] Comment on above: Order Comment: Speci men Type: BLOOD SPECIMEN Ordering Facility: [facility] Address: [address] [place] [id number] Performed By: #### 2 4323-8, 1987-, 308- #### [facility] CLIA [id number] [address] [facility] [place] [address] [place] [facility] XR CERVICAL 4V AP/LAT/OBLon 08-20-2022 XR CERVICAL [...] osseous abnormality. Mild degenerative changes, as described. Test Pilot: PSCB Transcribe Date/Time: Aug 20 2022 11:28A Dictated by : MAXIME DEXTER MD This examination was interpreted and the report reviewed and electronically signed by: ALIZE SANCHEZ MD on Aug 20 2022 4:05PM EST [id number] Normal [facility] cCP IgG SerPl-aCncon 022 Cyclic citrullinated peptide IgG Qn <15 Normal <20 [facility] Comment on above: Order Comment: Speci men Type: BLOOD SPECIMENOrdering Facility: [facility] Address: [address] [address] Performed By: #### 3 2677-7, 50385-8 ####[facility] [id number] [address] dsDNA Ab Ser IA-aCncon 08-20 DNA double strand Ab IA Qn (S) <12 Normal <30 [facility] Comment on above: Order Comment: Speci men Type: BLOOD SPECIMENOrdering Facility: [facility] Address: [address] [place] [address] Result Comment: Nega tive for ds DNA Antibodies. <30 IU/mL Negative 30-74 IU/mL Equivocal >74 IU/mL Positive Performed By: #### 3 2677-7, 06779-8 ####[facility] [id number] [address] No Panel Informationon 07-20 IMPRESSION: NORMAL EXCEPT FOR MINIMAL LATERAL EPICONDYLAR ENTHESOPATHY BILATERALLY Test Pilot: SHAYNE Transcribe Date/Time: Jul 20 2022 10:34A Dictated by : GERBER CASILLAS MD This examination was interpreted and the report reviewed and electronically signed by: GERBER CASILLAS MD on Jul 20 2022 10:35AM [facility] DIVISION OF RADIOLOGY Radiology Study observation (narrative) [facility] No Panel InformationOrdered By: Ccf Provider on 07-20-2022 [facility] XR Elbow - left AP and Later [...] other significant abnormality. DIVISION OF RADIOLOGY Provider, [facility] Naheed Guillermo - 07/20/2022 * * *Final Report* * [...] EXCEPT FOR MINIMAL LATERAL EPICONDYLAR ENTHESOPATHY BILATERALLY Test Pilot: [facility]ITALCedrick Transcribe Date/Time: Jul 20 2022 10:34A Dictated by : GERBER CASILLAS MD This examination was interpreted and the report reviewed and electronically signed by: GERBER CASILLAS MD on Jul 20 2022 10:35AM [facility] [place] XR Elbow - right AP and Late [...] other significant abnormality. DIVISION OF RADIOLOGY Provider, [facility] Naheed [facility] - 07/20/2022 * * *Final Report* * [...] EXCEPT FOR MINIMAL LATERAL EPICONDYLAR ENTHESOPATHY BILATERALLY Test Pilot: SHAYNE Transcribe Date/Time: Jul 20 2022 10:34A Dictated by : GERBER CASILLAS MD This examination was interpreted and the report reviewed and electronically signed by: GERBER CASILLAS MD on Jul 20 2022 10:35AM EST [facility] PTH INTACTon 05-05-2022 PTH, Intact 13 pg/mL Critically low 15-65 [facility] Comment on above: Performed By: #### P THINT #### [facility] [address] [place] [address] Dr. Greer Nguyen VIT D 25-OH LABCORPon 2021 Vitamin D, 25-Hydroxy 39.4 ng/mL Normal 30.0-100.0 [facility] Comment on above: Result Comment: Sabine min D deficiency has been defined by the [place] of [employer] and an Endocrine Society practice guideline as a level of serum 25-OH vitamin D less than 20 ng/mL (1,2). The Endocrine Society went on to further define vitamin D insufficiency as a level between 21 and 29 ng/mL (2). 1. IOM ([place] of [employer]). 2010. Dietary reference intakes for calcium and D. Diaz [place]: The National Academies Press. 2. Willem MF, Sadie NC, Nova SHEPARD, et al. Evaluation, treatment, and prevention of vitamin D deficiency: an Endocrine Society clinical practice guideline. JCEM. 2010; 96(7):1911-30. Performed By: #### V ITADLC #### [facility] [address] [place] [address] Dr. Greer Nguyen CALCIUMon 05-04-2022 Calcium [Mass/Vol] 8.1 mg/dL Critically low 8.5-10.1 [facility] Comment on above: Performed By: #### C A, TSH, LIVER, LIPID #### [facility] [address] [place] [address] Dr. Greer Nguyen CBC AUTO DIFFon 05-04-2022 BASO # 0.0 103/ul Normal 0.0-0.1 [facility] Comment on above: Performed By: #### C BC #### [facility] [address] [place] [address] Dr. Greer Nguyen Basophils/100 WBC (Bld) 0.4 % Normal 0.2-2.0 [facility] Comment on above: Performed By: #### C BC #### [facility] [address] [place] [address] Dr. Greer Nguyen EO # 0.1 103/ul Normal 0.0-0.7 [facility] Comment on above: Performed By: #### C BC #### [facility] [address] [place] [address] Dr. Greer Nguyen Eosinophils/100 WBC (Bld) 0.7 % Critically low 0.9-7.0 [facility] Comment on above: Performed By: #### C BC #### [facility] [address] [place] [address] Dr. Greer Nguyen Erythrocyte distribution width (RBC) [Ratio] 13.3 % Normal 11.0-15.0 [facility] Comment on above: Performed By: #### C BC #### [facility] [address] [place] [address] Dr. Greer Nguyen Hematocrit (Bld) [Volume fraction] 36.6 % Normal 36.0-48.0 [facility] Comment on above: Performed By: #### C BC #### [facility] [address] [place] [address] Dr. Greer Nguyen Hemoglobin (Bld) [Mass/Vol] 12.1 g/dL Normal 12.0-16.0 [facility] Comment on above: Performed By: #### C BC #### [facility] [address] [place] [address] Dr. Greer Nguyen IG # 0.01 10e3/ul Normal 0.00-0.03 [facility] Comment on above: Performed By: #### C BC #### [facility] [address] [place] [address] Dr. Greer Nguyen IG % 0.1 % Normal 0.0-0.5 [facility] Comment on above: Performed By: #### C BC #### [facility] [address] [place] [address] Dr. Greer Nguyen LYMPH # 2.3 103/ul Normal 1.2-3.8 [facility] Comment on above: Performed By: #### C BC #### [facility] [address] [place] [address] Dr. Greer Nguyen Lymphocytes/100 WBC (Bld) 28.4 % Normal 20.5-60.0 [facility] Comment on above: Performed By: #### C BC #### [facility] [address] [place] [address] Dr. Greer Nguyen MANUAL DIFF REQ NO Normal [facility] Comment on above: Performed By: #### C BC #### [facility] [address] [place] [address] Dr. Greer Nguyen MCH (RBC) [Entitic mass] 29.4 pg Normal 26.7-34.0 [facility] Comment on above: Performed By: #### C BC #### [facility] [address] [place] [address] Dr. Greer Nguyen MCHC (RBC) [Mass/Vol] 33.1 g/dL Normal 29.9-35.2 [facility] Comment on above: Performed By: #### C BC #### [facility] [address] [place] [address] Dr. Greer Nguyen MCV (RBC) [Entitic vol] 88.8 fL Normal 81.0-99.0 [facility] Comment on above: Performed By: #### C BC #### [facility] [address] [place] [address] Dr. Greer Nguyen MONO # 0.5 103/ul Normal 0.3-0.8 [facility] Comment on above: Performed By: #### C BC #### [facility] [address] [place] [address] Dr. Greer Nguyen Monocytes/100 WBC (Bld) 6.0 % Normal 1.7-12.0 [facility] Comment on above: Performed By: #### C BC #### [facility] [address] [place] [address] Dr. Greer Nguyen NEUT # 5.2 103/ul Normal 1.4-6.5 [facility] Comment on above: Performed By: #### C BC #### [facility] [address] [place] [address] Dr. Greer Nguyen Neutrophils/100 WBC (Bld) 64.4 % Normal 43.0-75.0 [facility] Comment on above: Performed By: #### C BC #### [facility] [address] [place] [address] Dr. Greer Nguyen Platelet mean volume (Bld) [Entitic vol] 8.8 fL Critically low 9.5-13.5 [facility] Comment on above: Performed By: #### C BC #### [facility] [address] [place] [address] Dr. Greer Nguyen PLT 348 103/ul Normal 150-450 [facility] Comment on above: Performed By: #### C BC #### [facility] [address] [place] [address] Dr. Greer Nguyen RBC 4.12 106/ul Critically low 4.20-5.40 [facility] Comment on above: Performed By: #### C BC #### [facility] [address] [place] [address] Dr. Greer Nguyen WBC 8.1 103/ul Normal 4.0-11.0 [facility] Comment on above: Performed By: #### C BC #### [facility] [address] [place] [address] [address] Greer Nguyen FERRITINon 05-04-2022 Ferritin [Mass/Vol] 95.0 ng/mL Normal 6.2-137.0 [facility] Comment on above: Performed By: #### F ERR, B12FOL, FETIBC #### [facility] [address] [place] [address] [address] Greer Nguyen GLYCOHEMOGLOBIN A1Con 2021 ADA RECOMMENDATION SEE BELOW Normal [facility] Comment on above: Result Comment: ADA RECOMMENDED LIMIT 4.0 - 6.0 ADA THERAPEUTIC TARGET < 7.0 ACTION SUGGESTED > 7.0 Performed By: #### A 1C #### [facility] [address] [place] [address] Dr. Greer Nguyen Glucose [Mass/Vol] 117 mg/dL Normal [facility] Comment on above: Performed By: #### A 1C #### [facility] [address] [place] [address] Dr. Greer Nguyen HbA1c (Bld) [Mass fraction] 5.7 % Normal 4.5-6.2 [facility] Comment on above: Performed By: #### A 1C #### [facility] [address] [place] [address] Dr. Greer Nguyen IRON AND TIBCon 05-04-2022 % SATURATION 23.2 % Normal [facility] Comment on above: Performed By: #### F ERR, B12FOL, FETIBC #### [facility] [address] [place] [address] [address] Greer Nguyen Iron [Mass/Vol] 63.0 ug/dL Normal 50.0-170.0 [facility] Comment on above: Performed By: #### F ERR, B12FOL, FETIBC #### [facility] [address] [place] [address] [address] Greer Nguyen TIBC DIRECT 271.0 ug/dL Normal 250.0-450. 0 [facility] Comment on above: Performed By: #### F ERR, B12FOL, FETIBC #### [facility] [address] [place] [address] [address] Greer Nguyen LIPID PROFILEon 05-04-2022 CHOL-HDL RATIO NORM SEE BELOW Normal [facility] Comment on above: Result Comment: 3.3 - 4.4 LOW RISK 4.4 - 7.1 AVERAGE RISK 7.1 - 11.0 MODERATE RISK >11.0 HIGH RISK Performed By: #### C A, TSH, LIVER, LIPID #### [facility] [address] [place] [address] [address] Greer Nguyen Cholesterol [Mass/Vol] 144 mg/dL Normal <=200 [facility] Comment on above: Performed By: #### C A, TSH, LIVER, LIPID #### [facility] [address] [place] [address] [address] Greer Nguyen Cholesterol in HDL [Mass/Vol] 45 mg/dL Normal 40-60 [facility] Comment on above: Performed By: #### C A, TSH, LIVER, LIPID #### [facility] [address] [place] [address] [address] Greer Nguyen Cholesterol in LDL [Mass/Vol] 92.8 mg/dL Normal [facility] Comment on above: Performed By: #### C A, TSH, LIVER, LIPID #### [facility] [address] [place] [address] [address] Greer Nguyen Cholesterol.total/Ch olesterol in HDL [Mass ratio] 3.2 {ratio} Normal [facility] Comment on above: Performed By: #### C A, TSH, LIVER, LIPID #### [facility] [address] [place] [address] [address] Greer Nguyen HDL NORMAL > or = 60 mg/dl - LO W CARDIOVASCULAR RISK <40 mg/dl - HIGH CARDIOVASCULAR RISK Normal [facility] Comment on above: Performed By: #### C A, TSH, LIVER, LIPID #### [facility] [address] [place] [address] [address] Greer Nguyen LDL CALC NORMAL SEE BELOW Normal [facility] Comment on above: Result Comment: <100 mg/dl OPTIMAL 100 - 129 mg/dl NEAR OR ABOVE OPTIMAL 130 - 159 mg/dl BORDERLINE HIGH 160 - 189 mg/dl HIGH >190 mg/dl VERY HIGH Performed By: #### C A, TSH, LIVER, LIPID #### [facility] [address] [place] [address] [address] Greer Nguyen Triglyceride [Mass/Vol] 31 mg/dL Normal <=150 [facility] Comment on above: Performed By: #### C A, TSH, LIVER, LIPID #### [facility] [address] [place] [address] [address] Greer Nguyen VLDL CALC 6.2 mg/dL Normal [facility] Comment on above: Performed By: #### C A, TSH, LIVER, LIPID #### [facility] [address] [place] [address] [address] Greer Nguyen LIVER PROFILEon 05-04-2022 Albumin [Mass/Vol] 3.2 g/dL Critically low 3.4-5.0 [facility] Comment on above: Performed By: #### C A, TSH, LIVER, LIPID #### [facility] [address] [place] [address] [address] Greer Nguyen Albumin/Globulin [Mass ratio] 0.9 {ratio} Normal [facility] Comment on above: Performed By: #### C A, TSH, LIVER, LIPID #### [facility] [address] [place] [address] Dr. Greer gNuyen ALP [Catalytic activity/Vol] 91 U/L Normal 46-116 [facility] Comment on above: Performed By: #### C A, TSH, LIVER, LIPID #### [facility] [address] [place] [address] [address] Greer Nguyen ALT [Catalytic activity/Vol] 31 U/L Normal 14-59 [facility] Comment on above: Performed By: #### C A, TSH, LIVER, LIPID #### [facility] [address] [place] [address] [address] Greer Nguyen AST [Catalytic activity/Vol] 14 U/L Critically low 15-37 [facility] Comment on above: Performed By: #### C A, TSH, LIVER, LIPID #### [facility] [address] [place] [address] Dr. Greer Nguyen BILI, CONJUGATED 0.1 mg/dL Normal 0.0-0.2 [facility] Comment on above: Performed By: #### C A, TSH, LIVER, LIPID #### [facility] [address] [place] [address] Dr. Greer Nguyen Bilirubin [Mass/Vol] 0.2 mg/dL Normal 0.2-1.0 [facility] Comment on above: Performed By: #### C A, TSH, LIVER, LIPID #### [facility] [address] [place] [address] Dr. Greer Nguyen Globulin (S) [Mass/Vol] 3.7 g/dL Normal [facility] Comment on above: Performed By: #### C A, TSH, LIVER, LIPID #### [facility] [address] [place] [address] Dr. Greer Nguyen Protein [Mass/Vol] 6.9 g/dL Normal 6.4-8.2 [facility] Comment on above: Performed By: #### C A, TSH, LIVER, LIPID #### [facility] [address] [place] [address] Dr. Greer Nguyen TSHon 05-04-2022 TSH 1.744 uIU/mL Normal 0.358-3.74 0 [facility] Comment on above: Performed By: #### C A, TSH, LIVER, LIPID #### [facility] [address] [place] [address] Dr. Greer Nguyen VIT B12 AND FOLATEon 022 Cobalamin (Vitamin B12) [Mass/Vol] 893.0 pg/mL Normal 193.0-986. 0 [facility] Comment on above: Performed By: #### C A, TSH, LIVER, LIPID #### [facility] [address] [place] [address] Dr. Greer Nguyen FOLATE 23.40 ng/mL Normal 8.60-58.90 [facility] Comment on above: Performed By: #### C A, TSH, LIVER, LIPID #### [facility] [address] [place], [place] [address] Dr. Gerer Nguyen HCG ( test) IA.rapi d Ql (U)Ordered By: Ed Malhotra on 04-17-2022 HCG ( test) Ql (U) Negative [facility] HCG ( test) IA.rapi d Ql (U)Ordered By: Ed Malhotra on 03-13-2022 HCG ( test) Ql (U) Negative [facility] XR hip BI w KCY1Gev 11-17-19 XR hip BI w PEL1V [facility] [employer] Other XR hip BI w PEL1V [facility] [employer] Other XR hip BI w PEL1V [address] [place] [address] [employer] Other XR hip BI [place] [address] [employer] Other XR hip BI w PEL1V XRay Report [employer] Other XR hip BI w PEL1V [employer]igned [employer] Other XR hip BI w PEL1V Patient: Michelle Rivera MR#: [id number] [employer] Other XR hip BI w PEL1V 84 [employer] Other XR hip BI w PEL1V : 1985 Acct:[id number] [employer] Other XR hip BI w PEL1V Age/Sex: 36 / F ADM Date: 11/16/21 [employer] Other XR hip BI w PEL1V Loc: [facility] Room: Type : REG CLI [employer] Other XR hip BI w PEL1V Attending Dr: Ed Malhotra MD [employer] Other XR hip BI w PEL1V Ordering Provider: Candis Malhotra MD [employer] Other XR hip BI w PEL1V Date of Service: 11/16/21 [employer] Other XR hip BI w PEL1V 13295) XR/XR hip BI w PEL1V: Hip pain [employer] Other XR hip BI w PEL1V Copies to: Ed Malhotra MD [employer] Other XR hip BI w PEL1V Low pelvis and bilat eral hips 11/16/2021. [employer] Other XR hip BI w PEL1V CLINICAL DATA: Long history of bilateral hip pain. [employer] Other XR hip BI w PEL1V FINDINGS: An AP view of both hips was obtained along with separate lateral views of each of the [employer] Other XR hip BI w PEL1V right and left hips for a total of 3 images. [employer] Other XR hip BI w PEL1V No acute fracture or dislocation is identified. No significant degenerative or other arthritic [employer] Other XR hip BI w PEL1V changes are seen. No bony erosion or destruction is visualized. [employer] Other XR hip BI w PEL1V X R/XR hip BI w PEL1V [employer] Other XR hip BI w PEL1V IMPRESSION: No bony abnormality. [employer] Other XR hip BI w PEL1V Impression dictated by: Libia King Jr., M.D.11/16/2021 12:22 PM [employer] Other XR hip BI w PEL1V Dictation Location: [place] [address] [employer] Other XR hip BI w PEL1V Transcribed By: CHIKI 11/16/21 1222 [employer] Other XR hip BI w PEL1V Dictated By: Libia King Jr, MD 11/16/21 1220 [place] [employer] Other XR hip BI w PEL1V Signed By: [employer] Other XR hip BI w PEL1V 11/16/21 1222 [place] [employer] Other Dietition Noteon 10-25-2021 Dietition Note Chief [...] MG/DOSE) 2 MG/1.5ML Subcutaneous Solution Pen-injector; Therapy: [id number] to Recorded Dispense: 0 Days ; #: Sufficient X 1.5 ML Pen; Refill: 0;For: Health Maintenance; LAUREL = N; Record; Last Updated By: Nicol Padilla; 10/04/2021 11:24:08 AM Topamax 100 MG Oral Tablet (Topiramate); Therapy: [id number] to Recorded Dispense: 0 Days [...] understanding o (more content not included)... Normal [facility] Dietition Noteon 08-23-2021 Dietition Note Chief Complaint [...] Tablet (Topiramate); TAKE 1 TABLET DAILY; Therapy: [id number] to Recorded Dispense: 0 Days ; #: [...] Aug 23 2021 1:24PM EST (Author) Normal [facility] Dietition Noteon 07-07-2021 Dietition Note Chief Complaint [...] 1 TABLET 3 TIMES DAILY NEEDED; Therapy: [id number] to Recorded Dispense: 0 Days ; #: [...] Ms. Rivera (more content not included)... Normal [facility] Dietition Noteon 06-06-2021 Dietition Note Chief Complaint [...] 1 TABLET 3 TIMES DAILY NEEDED; Therapy: [id number] to Recorded Dispense: 0 Days ; #: Sufficient Tablet; Refill: 0;For: Back spasm; LAUREL = N; Record; Last Updated By: Dionna Levi; 04/20/2021 4:14:36 PM CeleXA 40 MG Oral Tablet (Citalopram Hydrobromide); Therapy: [id number] to Recorded Dispense: 0 Days ; #: [...] = N; Record; Last Updated By: Dionna Leiv; 04/20/2021 4:14:36 PM Provider Impressions APPOINTMENT WAS [...] eating habits (more content not included)... Normal [facility] Dietition Noteon 04-28-2021 Dietition Note Chief Complaint [...] 1 TABLET 3 TIMES DAILY NEEDED; Therapy: [id number] to Recorded Dispense: 0 Days ; #: Sufficient Tablet; Refill: 0;For: Back spasm; LAUREL = N; Record; Last Updated By: Dionna Easton; 04/20/2021 4:14:36 PM CeleXA 40 MG Oral Tablet; Therapy: [id number] to Recorded Dispense: 0 Days ; #: Sufficient Tablet; Refill: 0;For: Depression with anxiety; LAUREL = N; Record; Last Updated By: Dionna Easton; 04/20/2021 4:14:36 PM Wellbutrin XL 150 MG Oral Tablet Extended Release 24 Hour; TAKE 1 TABLET DAILY DIRECTED; Therapy: [id number] to Recorded Dispense: 0 Days ; #: [...] phone d/ (more content not included)... Normal [facility] Bariatric Surgery - Initialo n 04-27-2021 Bariatric [...] day smoker Tobacco Use Screening; Status:Complete; Done: [id number] Patient Discussion/Summary The following are some lifestyle [...] sensitivity she was planning to see her placement assistant for this I agree that she should [...] spiritual/cultural practices/values/needs that are important to know: Religion Initial Fall Ris (more content not included)... Normal [employer] ANTINUCLEAR ANTIBODYon 01-22 ANTINUCLEAR ANTIBODY Negative Normal NEGATIVE [facility] Comment on above: Performed By: #### A NA ####[facility] [place] [address] CITRULLINE ANTIBODYon 2017 CITRULLINE ANTIBODY <1 Normal [facility] Comment on above: Result Comment: THE [...] >=3 U/ML Performed By: #### C ITAB ####[facility] [place] [address] HLA-B27 TYPINGon 01-22-2018 HLA-B27 TYPING Negative Normal [facility] Comment on above: Result Comment: This test was developed without FDA review. The test performancecharacteristics were defined and validated by the [facility] HLA LaboratoryDepartment of Pathology, under the accreditation guidelines of [facility]. Performed By: #### H [id number] ####[facility] [place] [address] C-REACTIVE PROTEINon 018 C reactive protein (CRP) 0.34 mg/dL Normal [facility] Comment on above: Result Comment: REF VALUE< 1.00 Performed By: #### C RP ####[facility] [place] [address] RHEUMATOID FACTORon 01-22-20 18 RHEUMATOID FACTOR <10 Normal 0 - 15 [facility] Comment on above: Performed By: #### R F ####[facility] [place] [address] SEDIMENTATION RATE, ERYTHROC YTEon 01-21-2018 SEDIMENTATION RATE, ERYTHROCYTE 11 mm/h Normal 0 - 20 [facility] Comment on above: Performed By: #### E SRWS ####[facility] [place] [address] No Panel Information [facility] Vital Signs Date Time Vital Sign Value Performing Clinician Facility 07-16-2024 12:30-0500 Blood Pressure Location HARDY BARR [facility] 07-16-2024 12:30-0500 Body temperature 98.6 [degF] HARDY BARR [facility] 07-16-2024 12:30-0500 Diastolic blood pressure 88 mm[Hg] HARDY BARR [facility] 07-16-2024 12:30-0500 Heart rate 79 /min HARDY BARR [facility] 07-16-2024 12:30-0500 Respiratory rate 18 /min HARDY BARR [facility] 07-16-2024 12:30-0500 Systolic blood pressure 137 mm[Hg] HARDY BARR [facility] 07-06-2024 13:07-0500 Body mass index (BMI) [Ratio] 23.93 kg/m2 Kirby Giovanna DO Work Phone: [facility] 07-06-2024 13:07-0500 Body weight 66.22 kg Kirby Giovanna DO Work Phone: [facility] 07-06-2024 13:07-0500 Diastolic blood pressure 70 mm[Hg] Kirby Giovanna DO Work Phone: [facility] 07-06-2024 13:07-0500 Systolic blood pressure 110 mm[Hg] Kirby Giovanna DO Work Phone: [facility] 11-28-2023 11:03-0400 Body height 165.1 cm Rivka Cifuentesjas 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 Work Phone: [facility] 11-28-2023 11:03-0400 Body mass index (BMI) [Ratio] 24.46 kg/m2 Rivka Koenig 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 Work Phone: [facility] 11-28-2023 11:03-0400 Body temperature 97.81 [degF] Rivka Koenig 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 Work Phone: [facility] 11-28-2023 11:03-0400 Body weight 66.68 kg Rivka Koenig 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 Work Phone: [facility] 11-28-2023 11:03-0400 Diastolic blood pressure 78 mm[Hg] Rivka Koenig 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 Work Phone: [facility] 11-28-2023 11:03-0400 Heart rate 76 /min Rivka Koenig 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 Work Phone: [facility] 11-28-2023 11:03-0400 SaO2% (BldA) [Mass fraction] 97 % Rivka Koenig 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 Work Phone: [facility] 11-28-2023 11:03-0400 Systolic blood pressure 118 mm[Hg] Rivka Koenig 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 Work Phone: [facility] 11-28-2023 08:55-0400 Body height 165.1 cm Nichol Barrett MD Work Phone: [facility] 11-28-2023 08:55-0400 Body mass index (BMI) [Ratio] 24.11 kg/m2 Nichol Barrett MD Work Phone: [facility] 11-28-2023 08:55-0400 Body weight 65.73 kg Nichol Barrett MD Work Phone: [facility] 11-28-2023 08:55-0400 Diastolic blood pressure 74 mm[Hg] Nichol Barrett MD Work Phone: [facility] 11-28-2023 08:55-0400 Heart rate 65 /min Nichol [facility] 11-28-2023 08:55-0400 Systolic blood pressure 119 mm[Hg] Nichol Barrett [facility] 11-11-2023 11:26-0400 Body height 166.37 cm DYLAN Pinto Work Phone: [facility] 11-11-2023 11:26-0400 Body mass index (BMI) [Ratio] 23.7 kg/m2 DYLAN Pinto Work Phone: [facility] 11-11-2023 11:26-0400 Body temperature 98.2 [degF] DYLAN Pinto Work Phone: [facility] 11-11-2023 11:26-0400 Body weight 65.77 kg DYLAN Pinto Work Phone: [facility] 11-11-2023 11:26-0400 Heart rate 66 /min DYLAN Pinto Work Phone: [facility] 11-11-2023 11:26-0400 Respiratory rate 16 /min DYLAN Pinto Work Phone: [facility] 11-11-2023 11:26-0400 SaO2% (BldA) [Mass fraction] 97 % DYLAN Pinto Work Phone: [facility] 08-29-2023 08:01-0500 Body mass index (BMI) [Ratio] 25.19 kg/m2 Rivka Koenig 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 Work Phone: [facility] 08-29-2023 08:01-0500 Body temperature 98.01 [degF] Rivka Koenig 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 Work Phone: [facility] 08-29-2023 08:01-0500 Body weight 68.67 kg Rivka Koenig 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 Work Phone: [facility] 08-29-2023 08:01-0500 Diastolic blood pressure 54 mm[Hg] Rivkasanaz Koenig 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 Work Phone: [facility] 08-29-2023 08:01-0500 Heart rate 86 /min Rivka Koenig 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 Work Phone: [facility] 08-29-2023 08:01-0500 SaO2% (BldA) [Mass fraction] 98 % Rivka Koenig 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 Work Phone: [facility] [employer] [facility] 08-29-2023 08:01-0500 Systolic blood pressure 102 mm[Hg] Rivka Koenig 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 Work Phone: [facility] [employer] [facility] 05-03-2023 09:49-0400 Body height 166.4 cm Frank Genin DO Work Phone: [facility] 05-03-2023 09:49-0400 Body weight 77.56 kg Frank Genin DO Work Phone: [facility] 02-28-2023 09:30-0400 Body height 166.37 cm Ed Felter Other [employer] Other 02-28-2023 09:30-0400 Body mass index (BMI) [Ratio] 33.1 kg/m2 Ed Felter Other [employer] Other 02-28-2023 09:30-0400 Body weight 91.63 kg Ed Felter Other [employer] Other 10-11-2022 10:30-0500 Body height 166.37 cm Ed Felter Other [employer] Other 10-11-2022 10:30-0500 Body mass index (BMI) [Ratio] 42.6 kg/m2 Ed Felter Other [employer] Other 10-11-2022 10:30-0500 Body weight 117.94 kg Ed Felter Other [employer] Other 09-17-2022 10:15-0500 Body height 166.4 cm Frank Genin DO Work Phone: [facility] 09-17-2022 10:15-0500 Body weight 117.94 kg Frank Genin DO Work Phone: [facility] 09-10-2022 10:45-0500 Body height 166.37 cm Ed Danienils Other [employer] Other 09-10-2022 10:45-0500 Body mass index (BMI) [Ratio] 41.78 kg/m2 Ed Heltonnils Other [employer] Other 09-10-2022 10:45-0500 Body weight 115.67 kg Ed Malhotra Other [facility] [employer] Other 08-20-2022 09:56-0500 Body height 166.4 cm Frank Genin DO Work Phone: [facility] 08-20-2022 09:56-0500 Body weight 117.94 kg Frank Genin DO Work Phone: [facility] 08-06-2022 11:15-0500 Body height 166.37 cm Ed Danienils Other [facility] [employer] Other 04-17-2022 11:00-0400 Diastolic blood pressure 83 mm[Hg] DYLAN Pinto Work Phone: [facility] 04-17-2022 11:00-0400 Heart rate 72 /min MATERIAL HANDLER 2ND SHIFTAbraham Pinto Work Phone: [facility] 04-17-2022 11:00-0400 Respiratory rate 20 /min MATERIAL HANDLER 2ND SHIFTAbraham Pinto Work Phone: [facility] 04-17-2022 11:00-0400 SaO2% (BldA) [Mass fraction] 100 % MATERIAL HANDLER 2ND SHIFTAbraham Pinto Work Phone: [facility] 04-17-2022 11:00-0400 Systolic blood pressure 153 mm[Hg] DYLAN Pinto Work Phone: [facility] 04-17-2022 10:22-0400 Inhaled oxygen flow rate 3 L/min MATERIAL HANDLER 2ND SHIFT Vijayanate Pinto Work Phone: [facility] 04-17-2022 09:14-0400 Body height 166.37 cm MATERIAL HANDLER 2ND SHIFT Vijaya Millie Work Phone: [facility] 04-17-2022 09:14-0400 Body weight 117.93 kg MATERIAL HANDLER 2ND SHIFT Vijaya Millie Work Phone: [facility] 03-19-2022 10:00-0400 Body height 166.37 cm Abundio Galdamez Other [employer] Other 03-19-2022 10:00-0400 Body mass index (BMI) [Ratio] 41.62 kg/m2 Abundio Galdamez Other [employer] Other 03-19-2022 10:00-0400 Body weight 115.21 kg Abundio Galdamez Other [employer] Other 03-13-2022 09:06-0400 Diastolic blood pressure 81 mm[Hg] MATERIAL HANDLER 2ND SHIFT Vijayanate Pinto Work Phone: [facility] 03-13-2022 09:06-0400 Heart rate 62 /min MATERIAL HANDLER 2ND SHIFTAbraham Pinto Work Phone: [facility] 03-13-2022 09:06-0400 Respiratory rate 20 /min MATERIAL HANDLER 2ND SHIFTAbraham Pinto Work Phone: [facility] 03-13-2022 09:06-0400 SaO2% (BldA) [Mass fraction] 100 % MATERIAL HANDLER 2ND SHIFTAbraham Pinto Work Phone: [facility] 03-13-2022 09:06-0400 Systolic blood pressure 142 mm[Hg] DYLAN Pinto Work Phone: [facility] 03-13-2022 08:29-0400 Inhaled oxygen flow rate 3 L/min DYLAN Pinto Work Phone: [facility] 03-13-2022 07:36-0400 Body height 166.37 cm DYLAN Pinto Work Phone: [facility] 03-13-2022 07:36-0400 Body mass index (BMI) [Ratio] 42.9 kg/m2 DYLAN Pinto Work Phone: [facility] 03-13-2022 07:36-0400 Body weight 118.84 kg DYLAN Pinto Work Phone: [facility] 10-25-2021 11:45-0500 Body height 166.37 cm Ed Malhotra Other [employer] Other 10-25-2021 11:45-0500 Body mass index (BMI) [Ratio] 41.67 kg/m2 Ed Malhotra Other [employer] Other 10-25-2021 11:45-0500 Body weight 115.35 kg Ed Malhotra Other [employer] Other 04-27-2021 08:16-0400 Body height 165.1 cm No PCP None [facility] Work Phone: 04-27-2021 08:16-0400 Body mass index (BMI) [Ratio] 40.98 kg/m2 No PCP None [facility] Work Phone: 04-27-2021 08:16-0400 Body surface area Derived from formula 2.16 m2 No PCP None [facility] Work Phone: 04-27-2021 08:16-0400 Body weight 111.7 kg No PCP None [facility] Work Phone: 04-20-2021 15:48-0400 Body height 166.37 cm No PCP None [facility] Work Phone: 04-20-2021 15:48-0400 Body mass index (BMI) [Ratio] 41.46 kg/m2 No PCP None [facility] Work Phone: 04-20-2021 15:48-0400 Body surface area Derived from formula 2.2 m2 No PCP None [facility] Work Phone: 04-20-2021 15:48-0400 Body weight 114.76 kg No PCP None [facility] Work Phone: Encounters Encounter Date Encounter Type Care Provider Facility Start: 07-16-2024 ambulatory SHANON BARR Facility:[facility] Start: 07-16-2024 End: 07-16-2024 Patient encounter procedure HARDY BARR [facility] Start: 07-13-2024 End: 07-14-2024 Refill Amy Chiu PA-C Work Phone: [facility] Comment on above: Malnutrition followi ng gastrointestinal surgery; History of gastric bypass; Postsurgical malabsorption; Vitamin B12 deficiency Start: 07-06-2024 End: 07-06-2024 Bamboo flowsheet Kirby Giovanna DO Work Phone: [facility] Start: 07-06-2024 End: 07-06-2024 Bamboo flowsheet Kirby Giovanna DO Work Phone: [facility] Start: 07-06-2024 End: 07-06-2024 Patient encounter procedure Kirby Giovanna DO Work Phone: [facility] Start: 07-06-2024 End: 07-06-2024 Periodic preventive med est patient 18-39 yrs Kirby Giovanna DO Work Phone: [facility] Comment on above: Well woman exam with routine gynecological exam Start: 07-06-2024 End: 07-06-2024 ambulatory KIRBY GIOVANNA Not Available Start: 05-28-2024 End: 05-28-2024 ambulatory Vijaya Pinto Facility:[facility] Start: 05-28-2024 End: 05-28-2024 ambulatory KIRBY CONTRERASO Not Available Start: 05-15-2024 ambulatory SHANON BARR Fac ility:[facility] Start: 05-14-2024 End: 05-14-2024 ambulatory KIRBY CONTRERASO Not Available Start: 01-16-2024 End: 01-16-2024 ambulatory MALI MALHOTRA Not Available Start: 11-28-2023 End: 11-28-2023 ambulatory [facility] Start: 11-28-2023 End: 11-28-2023 ambulatory NICHOL BARRETT [facility] Start: 11-28-2023 End: 11-28-2023 Office outpatient visit 15 minutes Nichol Barrett MD Work Phone: [facility] Comment on above: [...] care Start: 11-25-2023 End: 11-26-2023 ambulatory AMY M [facility] Start: 11-14-2023 End: 11-14-2023 ambulatory DYLAN Pinto Work Phone: [facility] Work Phone: Start: 11-14-2023 End: 11-14-2023 Patient encounter procedure DYLAN Pinto Work Phone: [facility] Work Phone: Start: 11-11-2023 End: 11-11-2023 Patient encounter procedure DYLAN Pinto Work Phone: [facility] [place] Work Phone: Start: 08-29-2023 End: 08-30-2023 ambulatory [facility] Start: 08-29-2023 End: 08-29-2023 ambulatory [facility] Start: 08-29-2023 End: 08-29-2023 Office outpatient visit 10 minutes [facility] 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 Work Phone: [facility] Comment on above: 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, sciatica laterality unspecified, unspecified back pain laterality (Primary Dx); Personal history of fibromyalgia; Polina's disease; Postsurgical malabsorption; Drug-induced constipation; History of gastric bypass Start: 07-05-2023 Telephone encounter Frank rodriguez DO Work Phone: Orthopaedics Start: 06-06-2023 End: 06-06-2023 ambulatory FRANK NEGRON Facility:[facility] Start: 05-16-2023 End: 05-16-2023 ambulatory Ed Malohtra Other [employer] Other Start: 05-16-2023 Office outpatient vi sit 15 minutes Ed Malhotra [facility] [place] Start: 05-03-2023 End: 05-03-2023 ambulatory FRANK NEGRON Facility:[facility] Start: 05-03-2023 End: 05-03-2023 Patient encounter procedure Frank Negron DO Work Phone: Orthopaedics Comment on above: Lateral epicondyliti s of right elbow (Primary Dx) Start: 03-21-2023 End: 03-21-2023 ambulatory FRANK NEGRON Facility:[facility] Start: 03-13-2023 End: 03-13-2023 ambulatory Ed Malhotra Other [employer] Other Start: 03-13-2023 Telephone encounter [facility] Start: 03-07-2023 End: 03-07-2023 ambulatory Marlita Divencenzo OTR/L Work Phone: [facility] Comment on above: Right elbow pain (Pr imary Dx); Lateral epicondylitis of right elbow Start: 03-01-2023 End: 03-01-2023 ambulatory Marlita Divencenzo OTR/L Work Phone: [facility] Comment on above: Right elbow pain (Pr imary Dx); Lateral epicondylitis of right elbow Medical equipment sc ripts question Start: 02-28-2023 End: 02-28-2023 ambulatory Frank A Genin DO Work Phone: [employer] Other Start: 02-28-2023 Office outpatient vi sit 25 minutes Ed VAZQUEZ [facility] [place] Start: 02-28-2023 Patient encounter procedure Frank A Genin DO Work Phone: Orthopaedics Comment on above: Next week off, keniai freddy B[facility] appointment? Start: 02-28-2023 Telephone encounter Ed [facility] Start: 02-22-2023 End: 02-22-2023 ambulatory MARLITA DIVENCENZO Facility:[facility] Start: 02-22-2023 End: 02-22-2023 ambulatory Marlita Divencenzo OTR/L Work Phone: [facility] Comment on above: Right elbow pain (Pr imary Dx); Lateral epicondylitis of right elbow Start: 02-14-2023 End: 02-14-2023 ambulatory FRANK A GENIN Facility:[facility] Start: 02-14-2023 End: 02-14-2023 Office outpatient visit 25 minutes Frank A Genin DO Work Phone: Orthopaedics Comment on above: Right elbow pain (Pr imary Dx); Lateral epicondylitis of right elbow Start: 01-24-2023 Telephone encounter Frank Julio Amish rodriguez DO Work Phone: [facility] Comment on above: Orders Start: 01-10-2023 End: 01-10-2023 ambulatory Ed Malhotra Other [employer] Other Start: 01-10-2023 Telephone encounter [facility] Start: 12-20-2022 End: 12-20-2022 ambulatory FRANK NEGRON Facility:[facility] Start: 12-20-2022 End: 12-20-2022 Patient encounter procedure Frank Victorin DO Work Phone: Orthopaedics Comment on above: Right elbow pain (Pr imary Dx); Lateral epicondylitis of both elbows Start: 12-06-2022 ambulatory [facility] Provider Cmai pacheco Comment on above: PRP injection - Righ t elbow - with Dr. Negron Start: 12-06-2022 E-mail encounter bert m caregiver [facility] Provider LIBIA ALSTON [facility] Start: 12-04-2022 End: 12-04-2022 ambulatory FRANK NEGRON Facility:[facility] Start: 12-04-2022 End: 12-04-2022 Office outpatient visit 25 minutes Frank Negron DO Work Phone: [facility] Comment on above: Lateral epicondyliti s of both elbows (Primary Dx); Left elbow pain Start: 11-16-2022 End: 11-16-2022 ambulatory FRANK NEGRON Facility:[facility] Start: 10-18-2022 ambulatory ED MALHOTRA Facility: Start: 10-12-2022 End: 10-12-2022 ambulatory Ed Malhotra Other [employer] Other Start: 10-12-2022 Telephone encounter [facility] Start: 10-11-2022 End: 10-11-2022 ambulatory Ed Malhotra Other [employer] Other Start: 10-11-2022 Office outpatient vi sit 25 minutes Ed Malhotra [facility] [place] Start: 09-17-2022 Telephone encounter Xander [facility] Comment on above: Appointment Start: 09-17-2022 End: 09-17-2022 ambulatory FRANK NEGRON Facility:[facility] Start: 09-17-2022 End: 09-17-2022 Patient encounter procedure Frank Negron DO Work Phone: Orthopaedics Comment on above: Lateral epicondyliti s of both elbows (Primary Dx); Left elbow pain; Right elbow pain; Fibromyalgia Start: 09-11-2022 End: 09-11-2022 ambulatory Austin Ingram Emmett RT(R) Radiology Comment on above: Radiology MRI Start: 09-11-2022 Patient encounter procedure Austin Christine RT(R) PIERCE KENNYJUANY Start: 09-11-2022 End: 09-11-2022 Subsequent hospital visit by physician Dinora [facility] Nay (1.5t) Work Phone: Radiology Comment on above: Lateral epicondyliti s of both elbows [M77.11, M77.12] Start: 09-10-2022 End: 09-10-2022 ambulatory Ed Malhotra Other [employer] Other Start: 09-10-2022 Office outpatient vi sit 15 minutes Ed Malhotra [facility] [place] Start: 08-20-2022 End: 08-21-2022 ambulatory FRANK A JAMIL Facility:[facility] Start: 08-20-2022 End: 08-20-2022 Patient encounter procedure Frank Negron DO Work Phone: Orthopaedics Comment on above: Left elbow pain (Rylee kristina Dx); Lateral epicondylitis of both elbows; Right elbow pain; Fibromyalgia; Anxiety; Sleep apnea, unspecified type; Cervicalgia Start: 08-06-2022 End: 08-06-2022 ambulatory Ed Malhotra Other [employer] Other Start: 08-06-2022 Office outpatient vi sit 25 minutes Ed Malhotra [facility] [place] Start: 07-20-2022 End: 07-20-2022 Patient encounter procedure Libia Gomez DO Work Phone: Orthopaedics Comment on above: Lateral epicondyliti s of both elbows (Primary Dx) Start: 07-20-2022 End: 07-20-2022 Subsequent hospital visit by physician Carolyn Pettit 1 Work Phone: Radiology Comment on above: Pain [R52] Start: 06-25-2022 End: 06-25-2022 ambulatory Ed Malhotra Other [employer] Other Start: 06-25-2022 Telephone encounter Ed Heltonnils [facility] Start: 05-14-2022 (Procedure) Short Ed Malhotra [facility] Start: 05-14-2022 End: 05-14-2022 ambulatory Ed Malhotra Other [employer] Other Start: 05-04-2022 End: 05-05-[address] DOCTOR BILLS Facility: Start: 04-30-2022 End: 04-30-2022 ambulatory Delia Allen Other [employer] Other Start: 04-30-2022 Telephone encounter Delia Allen [facility] Start: 04-24-2022 End: 04-24-2022 ambulatory Ed Danienils Other [employer] Other Start: 04-24-2022 Office outpatient vi sit 25 minutes Ed Heltoner [facility] [place] Start: 04-17-2022 End: 04-17-2022 Admission to same day surgery center DYLAN Pinto Work Phone: [facility] Start: 03-27-2022 End: 03-27-2022 ambulatory Ed Marya Other [employer] Other Start: 03-27-2022 Office outpatient vi sit 25 minutes Ed Malhotra [facility] [place] Start: 03-21-2022 End: 03-21-2022 ambulatory Delia Allen Other [employer] Other Start: 03-21-2022 Telephone encounter Delia Diaz 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 Start: 01-15-2022 End: 01-15-2022 ambulatory Ed Malhotra Other [employer] Other Start: 01-15-2022 Telephone encounter Ed Malhotra [facility] Start: 12-28-2021 End: 12-28-2021 ambulatory Ed Heltonnils Other [employer] Other Start: 12-28-2021 Office outpatient vi sit 25 minutes Ed Heltoner [facility] [place] Start: 11-16-2021 End: 11-16-2021 ambulatory Ed Heltoner Other [employer] Other Start: 11-16-2021 Office outpatient vi sit 25 minutes Ed Malhotra [facility] [place] Start: 11-07-2021 (Procedure) Marvin Malhotra [facility] Start: 11-07-2021 End: 11-07-2021 ambulatory Ed Heltoner Other [employer] Other Start: 10-25-2021 Patient encounter procedure No PCP None [facility] Work Phone: Start: 10-25-2021 End: 10-25-2021 ambulatory Ed Danieer Other [employer] Other Start: 10-25-2021 Office outpatient vi sit 25 minutes Ed Malhotra [facility] [place] Start: 10-17-2021 (Procedure) Short Ed Heltonnils [facility] Start: 10-17-2021 End: 10-17-2021 ambulatory Ed Heltonnils Other [employer] Other Start: 09-26-2021 End: 09-26-2021 ambulatory Ed Heltonnils Other [employer] Other Start: 09-26-2021 Telephone encounter Ed Danienils [facility] Start: 09-14-2021 End: 09-14-2021 ambulatory Ed Danienils Other [employer] Other Start: 09-14-2021 Office consultation new/estab patient 60 min Ed Malhotra [facility] [place] Start: 08-16-2021 AUDIT No PCP None MP-Neurolo gy-Granado 170 DO Work Phone: Start: 06-06-2021 Patient encounter procedure No PCP None [facility] Work Phone: Start: 04-28-2021 Patient encounter procedure No PCP None [facility] Work Phone: Start: 04-28-2021 YULIANA, Provider : Allyn Mcdaniels, Status: Pen, Time: 9:30 AM No PCP None [facility] Work Phone: Start: 04-27-2021 Office outpatient ne w 45 minutes No PCP None XU-Qqcmglr-Cvfhi MAC2 303 Work Phone: Start: 04-21-2021 Chart Update No PCP None [facility] 450 Work Phone: Start: 04-20-2021 AUDIT No PCP None [facility] Work Phone: Procedures Date Procedure Procedure Detail Performing Clinician Start: 11-14-2023 Plain X-ray of right hip MATERIAL HANDLER 2ND SHIFT Vijaya Carringtonsler Work Phone: Start: 11-14-2023 X-ray of lumbar spin e, four views DYLAN Pinto Work Phone: Start: 11-11-2023 Quick Strep (POC) DYLAN Pinto Work Phone: Start: 08-29-2023 Follow-up visit Follow-up NELIA KOENIG Start: 06-20-2023 Microscopic observat ion [Identifier] in Cervix by Cyto stain Amy Chiu PA-C Work Phone: Start: 06-20-2023 Cytp cerv/vag auto t hin layer prep mnl screen Kirby Heredia DO Work Phone: Start: 05-03-2023 End: 05-03-2023 Us guidance needle placement img s&i Frank Negron DO Work Phone: Start: 03-04-2023 Adult depression scr eening assessment Rivka Koenig 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 Work Phone: Start: 02-14-2023 Us compl joint [...] Psychiatric diagnost ic evaluation No PCP None Adenoid excision HARDY VANIA RRY Bypass of stomach HARDY Pradeep ERRNidhi Tonsillectomy No PCP None Tonsillectomy HARDYDEBRA BARR Plan of Treatment Date Care Activity Detail Author Start: 06-20-2026 Screening for malign ant neoplasm of cervix Pap Smear [facility] Start: 11-28-2024 [facility] Start: 11-27-2024 Adult BMI Screening [facility] Start: 11-27-2024 [facility]ening [facility] Start: 11-26-2024 End: 11-26-2024 Calcium [Mass/volume] in Serum or Plasma Calcium Lab Routine Malnutrition following gastrointestinal surgery History of gastric bypass Postsurgical malabsorption Expected: 11/26/2024 (Approximate), Expires: 11/26/2024 [employer] Work Phone: Comment on above: Expected: 11/26/2024 (Approximate), Expires: 11/26/2024 Start: 11-26-2024 End: 11-26-2024 CBC W Auto Differential panel - Blood CBC auto differential Lab Routine Malnutrition following gastrointestinal surgery History of gastric bypass Postsurgical malabsorption Expected: 11/26/2024 (Approximate), Expires: 11/26/2024 [facility] Comment on above: Expected: 11/26/2024 (Approximate), Expires: 11/26/2024 Start: 11-26-2024 End: 11-26-2024 Copper, serum Copper, serum Lab Routine Malnutrition following gastrointestinal surgery History of gastric bypass Postsurgical malabsorption Expected: 11/26/2024 (Approximate), Expires: 11/26/2024 [facility] Comment on above: Expected: 11/26/2024 (Approximate), Expires: 11/26/2024 Start: 11-26-2024 End: 11-26-2024 Cyanocobalamin vitamin b-12 Vitamin B12 Lab Routine Malnutrition following gastrointestinal surgery History of gastric bypass Postsurgical malabsorption Expected: 11/26/2024 (Approximate), Expires: 11/26/2024 [facility] Comment on above: Expected: 11/26/2024 (Approximate), Expires: 11/26/2024 Start: 11-26-2024 End: 11-26-2024 Folate Folate Lab Routine Malnutrition following gastrointestinal surgery History of gastric bypass Postsurgical malabsorption Expected: 11/26/2024 (Approximate), Expires: 11/26/2024 [facility] Comment on above: Expected: 11/26/2024 (Approximate), Expires: 11/26/2024 Start: 11-26-2024 End: 11-26-2024 Iron [Mass/volume] in Serum or Plasma Iron Lab Routine Malnutrition following gastrointestinal surgery History of gastric bypass Postsurgical malabsorption Expected: 11/26/2024 (Approximate), Expires: 11/26/2024 [facility] Comment on above: Expected: 11/26/2024 (Approximate), Expires: 11/26/2024 Start: 11-26-2024 End: 11-26-2024 Liver panel Liver panel Lab Routine Malnutrition following gastrointestinal surgery History of gastric bypass Postsurgical malabsorption Expected: 11/26/2024 (Approximate), Expires: 11/26/2024 [facility] Comment on above: Expected: 11/26/2024 (Approximate), Expires: 11/26/2024 Start: 11-26-2024 End: 11-26-2024 Parathyroid Hormone, intact Parathyroid Hormone, intact Lab Routine Malnutrition following gastrointestinal surgery History of gastric bypass Postsurgical malabsorption Expected: 11/26/2024 (Approximate), Expires: 11/26/2024 [facility] Comment on above: Expected: 11/26/2024 (Approximate), Expires: 11/26/2024 Start: 11-26-2024 End: 11-26-2024 Thiamin Vitamin B1, whole blood Thiamin Vitamin B1, whole blood Lab Routine Malnutrition following gastrointestinal surgery History of gastric bypass Postsurgical malabsorption Expected: 11/26/2024 (Approximate), Expires: 11/26/2024 [facility] Comment on above: Expected: 11/26/2024 (Approximate), Expires: 11/26/2024 Start: 11-26-2024 End: 11-26-2024 Vitamin A (Retinol) Vitamin A (Retinol) Lab Routine Malnutrition following gastrointestinal surgery History of gastric bypass Postsurgical malabsorption Expected: 11/26/2024 (Approximate), Expires: 11/26/2024 [facility] Comment on above: Expected: 11/26/2024 (Approximate), Expires: 11/26/2024 Start: 11-26-2024 End: 11-26-2024 Vitamin D 25 hydroxy Vitamin D 25 hydroxy Lab Routine Malnutrition following gastrointestinal surgery History of gastric bypass Postsurgical malabsorption Expected: 11/26/2024 (Approximate), Expires: 11/26/2024 [facility] Comment on above: Expected: 11/26/2024 (Approximate), Expires: 11/26/2024 Start: 11-26-2024 End: 11-26-2024 Zinc Zinc Lab Routine Malnutrition following gastrointestinal surgery History of gastric bypass Postsurgical malabsorption Expected: 11/26/2024 (Approximate), Expires: 11/26/2024 [facility] Comment on above: Expected: 11/26/2024 (Approximate), Expires: 11/26/2024 Start: 11-26-2024 End: 11-26-2024 Patient encounter procedure [facility] Start: 08-29-2024 Adult BMI Screening Adult BMI Screen ing [facility] Start: 08-29-2024 Tobacco Screening Tobacco Screening [facility] Start: 08-20-2024 End: 08-20-2024 Patient encounter procedure 08/20/2024 2:30 PM EST [facility] [address] [place] [phone] Andrea Ornelas MD [address] [place] [phone] [facility] Start: 07-28-2024 End: 07-28-2024 Patient encounter procedure 07/28/2024 11:30 AM EST Procedure Visit [facility] [address] [place] [address] Kirby Heredia, DO [address] [place] [address] [facility] Start: 07-17-2024 End: 07-17-2024 Patient encounter procedure 07/17/2024 7:30 AM EST Procedure Visit [facility] EXT DEP Kirby Heredia, DO [address] [place] [address] [facility] Start: 07-09-2024 End: 07-09-2024 Professional / ancillary services management 07/09/2024 9:30 AM EST Ancillary Procedure [facility] [address] [place] [phone] [facility] Start: 07-06-2024 End: 07-06-2024 Patient encounter procedure 07/06/2024 1:00 PM EST Office Visit [facility] [address] [place] [phone] Kirby Heredia, DO [address] [place] [address] Arrived [facility] Comment on above: Arrived Start: 05-28-2024 End: 05-28-2024 Patient encounter procedure 05/28/2024 8:00 AM EDT Office Visit [facility] [address] [place] [address], [place] [phone] Rivka Koenig APRN-CNP [address] [place] [address], [facility] [place] [address] [facility] Start: 05-03-2024 Covid-19 Vaccine ( season) Covid-19 Vaccine ( season) [facility] Start: 05-03-2024 Covid-19 Vaccine ( season) Covid-19 Vaccine ( season) [facility] Start: 05-03-2024 Influenza [facility] Start: 03-04-2024 Depression Screening Depression Scre ening [facility] Start: 11-28-2023 End: 11-28-2023 Patient encounter procedure 11/28/2023 11:00 AM EDT Office Visit [facility] [address] [place] [address] [phone] Rivka Koenig, 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 [address] [facility] [address] [place], [place] [phone] [facility] Start: 05-03-2023 Influenza [facility] Start: 04-05-2023 Adult BMI Follow Up Plan Adult BMI F ollow Up Plan [facility] Start: 09-02-2022 DEPRESSION ASSESSMENT DEPRESSION ASS ESSMENT [facility] Start: 08-20-2022 End: 10-20-2022 25-hydroxyvitamin D3 [Mass/volume] in Serum or Plasma [facility] Work Phone: Comment on above: Expected: 08/20/2022 , Expires: 10/20/2022 Start: 08-20-2022 End: 10-20-2022 FELICIANO BY IFA WITH REFLEX [facility] Work Phone: Comment on above: Expected: 08/20/2022 , Expires: 10/20/2022 Start: 08-20-2022 End: 10-20-2022 Cyclic citrullinated peptide IgG Ab [Units/volume] in Serum or Plasma [facility] Work Phone: Comment on above: Expected: 08/20/2022 , Expires: 10/20/2022 Start: 08-20-2022 End: 10-20-2022 DNA double strand Ab [Units/volume] in Serum by Immunoassay [facility] Work Phone: Comment on above: Expected: 08/20/2022 , Expires: 10/20/2022 Start: 08-20-2022 End: 10-20-2022 Erythrocyte sedimentation rate [facility] Work Phone: Comment on above: Expected: 08/20/2022 , Expires: 10/20/2022 Start: 08-20-2022 End: 10-20-2022 Rheumatoid factor [Units/volume] in Serum or Plasma [facility] Work Phone: Comment on above: Expected: 08/20/2022 , Expires: 10/20/2022 Start: 05-03-2022 Influenza vaccination INFLUENZA (#1) [facility] Start: 04-17-[address] [facility] Work Phone: Start: 03-12-[address] [facility] Work Phone: Start: 12-14-2021 LEEANNA, Provider: Ashu Benson, Status: Pen, Time: 7:30 AM EGDACONSUELO, Provider: Ashu Benson, Status: Pen, Time: 7:30 AM [facility] Work Phone: Start: 09-02-2021 DEPRESSION ASSESSMENT DEPRESSION ASS [facility] Start: 08-23-2021 VIRFUJUSTIN, Provider : Allyn Mcdaniels, Status: Pen, Time: 1:00 PM VIRFUVNEISHA, Provider: Allyn Mcdaniels, Status: Pen, Time: 1:00 PM [facility] Work Phone: Start: 07-07-2021 VIRFUJUSTIN, Provider : Allyn Mcdaniels, Status: Pen, Time: 1:00 PM VIRFUVNEISHA, Provider: Allyn Mcdaniels, Status: Pen, Time: 1:00 PM [facility] Work Phone: Start: 2017 HPV TESTING HPV TESTING [facility] Start: 02-07-2008 PAP TESTING PAP TESTING [facility] Start: 02-07-2008 Screening for malign ant neoplasm of cervix [facility] Start: 2006 DTaP,Tdap and Td Vaccines (1 - Tdap) DTaP,Tdap and Td Vaccines (1 - Tdap) [facility] Start: 2006 Hepatitis B Vaccine (1 of 3 - 19+ 3-dose series) Hepatitis B Vaccine (1 of 3 - 19+ 3-dose series) [facility] Start: 2006 Urine microalbumin profile [facility] Start: 2005 Anxiety Screening Anxiety Screening [facility] Start: 2005 Depression Screening Depression Scre ening [facility] Start: 2005 HEPATITIS C SCREENING HEPATITIS C [facility] Start: 2005 Hepatitis C screening Hepatitis C [facility] Start: 2005 HIV SCREENING HIV SCREENING [facility] Start: 2005 HIV screening HIV Screening [facility] Start: 1987 COVID-19 VACCINE (#1) COVID-19 VACCI NE (#1) [facility] Start: 1987 HEPATITIS B (1 of 3 - 3-dose series) HEPATITIS B (1 of 3 - 3-dose series) [facility] Start: 1987 Hepatitis B Vaccine (1 of 3 - 3-dose series) Hepatitis B Vaccine (1 of 3 - 3-dose series) [facility] Cytology Cervical or vaginal smear or scraping study Pap Smear Pathology and Cytology Routine Well woman exam with routine gynecological exam Ordered: 07/06/2024 [facility] [employer] Work Phone: Comment on above: Ordered: 07/06/2024 Human papilloma viru s DNA [Presence] in Unspecified specimen by Probe with amplification HPV DNA probe, amplified Microbiology Routine Well woman exam with routine gynecological exam Ordered: 07/06/2024 [facility] [employer] Comment on above: Ordered: 07/06/2024 End: 09-19-2023 Mri any jt upper extremity w/o contrast matrl [facility] Work Phone: Comment on above: 1 Occurrences starti ng 08/20/2022 until 09/19/2023 Patient Education [facility] Work Phone: Patient referral [facility] Work Phone: End: 09-19-2023 Radex spine cervical 4 or 5 views XR CERV OTHER 4V AP/LAT/OBL Radiology Routine Lateral epicondylitis of both elbows Left elbow pain Right elbow pain Fibromyalgia Anxiety Sleep apnea, unspecified type Cervicalgia 1 Occurrences starting 08/20/2022 until 09/19/2023 [facility] Work Phone: Comment on above: 1 Occurrences starti ng 08/20/2022 until 09/19/2023 [facility] spine cervical 4 or 5 views XR CERV OTHER 4V AP/LAT/OBL Radiology Routine Lateral epicondylitis of both elbows Left elbow pain Right elbow pain Fibromyalgia Anxiety Sleep apnea, unspecified type Cervicalgia 08/20/2022 10:54 AM EST [facility] Work Phone: End: 08-29-2024 TSH with Reflex TSH with Reflex Lab Routine Polina's disease 1 Occurrences starting 08/29/2023 until 08/29/2024 [employer] Work Phone: Comment on above: 1 Occurrences starti ng 08/29/2023 until 08/29/2024 TSH with Reflex TSH with Reflex Lab Routine Polina's disease 08/29/2023 8:51 AM EST [facility] End: 10-17-2023 Us lmtd joint/oth nonvasc xtr strux r-t w/img US ELBOW LEFT Radiology Routine Lateral epicondylitis of both elbows 1 Occurrences starting 09/17/2022 until 10/17/2023 [facility] Work Phone: Comment on above: 1 Occurrences starti ng 09/17/2022 until 10/17/2023 [facility] Payers Date Payer Category Payer Unknown [id number] 2023 Self-pay [id number] 2022 Medicaid HMO [facility] MEDICAID [id number] 2022 Private Health Insurance [id number] 2021 Medicaid [id number] 2021 Unknown 2020 Medicaid [id number] 1987 Unknown [id number] 2.16.840.1.311471.3.579. 2.593 1987 Unknown [id number] 2.16.840.1.646787.3.579. 2.593 1987 Unknown [id number] 2.16.840.1.556526.3.579. 2.6 1987 Unknown [id number] 2.16.840.1.931315.3.579. 2.1285 1987 Unknown [id number] 2.16.840.1.756239.3.579. 2.6 1987 Unknown [id number] 2.16.840.1.764922.3.579. 2.1285 1987 Unknown [id number] 2.16.840.1.426258.3.579. 2.128 1987 Unknown [id number] 2.16.840.1.896692.3.579. 2.1258 1987 Unknown [id number] 2.16.840.1.847673.3.579. 2.9 1987 Unknown [id number] 2.16.840.1.737314.3.579. 2.9 1987 Unknown [id number] 2.16.840.1.342962.3.579. 2.1259 1987 Unknown [id number] 2.16.840.1.343060.3.579. 2.727 1959 Unknown [id number] [id number] 1959 Unknown [id number] 2.16.840.1.152770.19 Unknown [employer] [id number] Unknown [id number] 2.16.840.1.272465.3.579. 2.531 Unknown [id number] [id number]. 2.531 Social History Date Type Detail Facility Start: 10-13-2020 End: 12-04-2022 Current every day smoker Current every day smoker [employer] Work Phone: Start: 10-13-2020 End: 12-04-2022 Sex Assigned At [employer] Other Start: 11-07-2021 Tobacco smoking status OHIS Never smoked tobacco (finding) [facility] Start: 1987 Sex Assigned At Female [facility] Tobacco smoking stat us OHIS Tobacco smoking consumption unknown [facility] Start: 1987 Sex Assigned At Not on file [facility] Start: 07-10-2022 End: 07-20-2022 Exposure to SARS-CoV-2 (event) Not sure [facility] Start: 12-04-2022 End: 07-16-2024 Tobacco smoking status NHIS Ex-smoker [facility] Start: 10-31-2010 End: 10-31-2020 History of tobacco use Current smoker [facility] Start: 10-31-2010 End: 10-31-2020 History of tobacco use Cigarette Smoker [facility] Start: 11-21-2022 End: 12-04-2022 Tobacco use and exposure Smokeless tobacco non-user [facility] National Score (1-10 0), lower number is lower risk 86 [facility] Start: 02-22-2023 Gender identity Identifies as female gender (finding) [facility] Start: 02-22-2023 Sexual orientation Heterosexual (finding) [facility] Start: 08-29-2023 End: 06-08-2024 Alcohol intake Current non-drinker of alcohol (finding) [facility] Start: 09-25-2022 Tobacco Comment 2-3 cigarettes a day [facility] Start: 05-28-2024 End: 07-06-2024 Alcoholic beverage intake Ex-drinker (finding) [facility] Start: 02-27-2023 Alcohol Comment Caffeine: 1-2 cups/day [facility] Start: 04-30-2018 Sex Female (finding) [facility] tem Goals Date Patient Goal Desired Activity /State Functional Status Date Assessment Result Facility 07-16-2024 Functional Status N/A [facility] Clinical Notes 01-31-2015 to 07-06-2024 Gayla Naylor MA - 07/06/2024 1:00 PM Delaney Koenig APRN-CA - 11/28/2023 11:00 AM Izzy Barrett MD - 11/28/2023 9:00 AM EDTAddendum Note - Perla Bajwa RN - 11/28/2023 9:00 AM EDT Note Date & Type Note Facility 07-06-2024 History of Presen t illness Narrative Reason for Appointment: Patient ID: Michelle Rivera is a 39 y.o. female who presents for Gynecologic Exam Patient presents today for Annual Exam. MEDICATIONS Current Outpatient Medications Medication Instructions Calcium-Cholecalciferol 200-6.25 MG-MCG tablet 2 tablets, Oral, 3 times daily cyanocobalamin (VITAMIN B-12) 1,000 mcg, Intramuscular, Once Ferrous Sulfate (IRON PO) 1 tablet, Oral, Daily RT Nexplanon 68 mg, Subcutaneous omeprazole (PriLOSEC) [address] capsule Every 12 hours ondansetron (Zofran) 4 MG tablet Oral MV-Min-Fe Fum-FA-DHA ( 1 PO) Oral, Daily RT zinc gluconate 50 mg, Oral, Daily ALLERGIES Allergies Allergen Reactions Penicillin G Hives and Swelling Penicillins Hives, Swelling and Unknown Sulfa Antibiotics Hives, Swelling and Unknown Ophthalmic agents Sulfamethoxazole-Trimethoprim Hives and Swelling Sulfur Other Reaction(s): Hives PROBLEMS Active Ambulatory Problems Diagnosis Date Noted Lumbar paraspinal muscle spasm 03/14/2023 Lumbar radiculopathy 03/14/2023 Resolved Ambulatory Problems Diagnosis Date Noted No Resolved Ambulatory Problems Past Medical History: Diagnosis Date Anxiety with depression Back spasm Fibromyalgia Polina's disease (CMS/HCC) Herpes simplex History of degenerative disc disease Hypothyroidism (CMS/HCC) HISTORY PAST MEDICAL HISTORY SOCIAL HISTORY Past Medical History: Diagnosis Date Anxiety with depression Back spasm Fibromyalgia Polina's disease (CMS/HCC) Herpes simplex History of degenerative disc disease Hypothyroidism (CMS/HCC) Social History Tobacco Use Smoking status: Former Types: Cigarettes Smokeless tobacco: Never Vaping Use Vaping status: Never Used Substance Use Topics Alcohol use: Not Currently Comment: Caffeine: 1-2 cups/day Drug use: Never FAMILY HISTORY Family History Problem Relation Name Age of Onset Hyperlipidemia Mother Mary Hypertension Mother Mary Osteoarthritis Mother Mary Cancer Mother Mary Melanoma Father Balwinder Diabetes Father Balwinder Hypertension Father Balwinder Hyperlipidemia Father Balwinder Hyperlipidemia Maternal Grandmother Anita Hypertension Maternal Grandmother Anita Diabetes Maternal Grandmother Anita Heart disease Maternal Grandfather Hypertension Paternal Grandmother Xiomy Diabetes Paternal Grandmother Xiomy Heart disease Paternal Grandfather Asthma Sister Radha SURGICAL HISTORY Past Surgical History: Procedure Laterality Date ABDOMINAL SURGERY 11/28/2022 ADENOIDECTOMY GASTRIC BYPASS 2022 PAP SMEAR 11/26/2019 negative TONSILLECTOMY REVIEW OF SYSTEMS Review of Systems: Review of Systems All other systems reviewed and are negative. OBJECTIVE Objective: Physical Exam Constitutional: Appearance: Normal appearance. She is well-developed. Genitourinary: Vulva normal. Breasts: Breasts are soft. Right: Normal. Left: Normal. Cardiovascular: Rate and Rhythm: Normal rate and regular rhythm. Pulmonary: Effort: Pulmonary effort is normal. Breath sounds: Normal breath sounds. Abdominal: General: Bowel sounds are normal. There is no distension. Palpations: Abdomen is soft. Tenderness: There is no abdominal tenderness. There is no guarding or rebound. Musculoskeletal: General: No swelling. Normal range of motion. Right lower leg: No edema. Left lower leg: No edema. Neurological: Mental Status: She is alert and oriented to person, place, and time. Skin: General: Skin is warm and dry. Psychiatric: Mood and Affect: Mood normal. Behavior: Behavior normal. Vitals and nursing note reviewed. Exam conducted with a block breaker operator present. Vitals: Estimated body mass index is 23.93 kg/m as calculated from the following: Height as of 05/14/24: 5' 5.5 . Weight as of this encounter: 146 lb. BP: 110/70 No LMP recorded (approximate). Patient has had an implant. ASSESSMENT & PLAN ICD-10-CM 1. Well woman exam with routine gynecological exam Z01.419 Pap Smear HPV DNA probe, amplified Annual Exam: Patient presents today for an annual exam. Patient states she is doing well and has no complaints. Pap was obtained without difficulty. Orders Placed This Encounter Procedures HPV DNA probe, amplified Follow Up: Patient is to return in one year for annual unless needed otherwise. Documented by Gayla Naylor MA on behalf of: Kirby Heredia DO documented in this encounter [facility] 11-28-2023 History of Presen t illness Narrative Subjective Patient ID: Michelle Rivera is a 38 y.o. female. OBDULIO Martinez presents to the office for follow up [...] 11/28/2022 Performed by Nichol Barrett MD at [facility] RADIOFREQUENCY ABLATION NERVES Dr. Malhotra TONSILLECTOMY [...] Lerner 11/29/23 1645 documented in this encounter [facility] 11-28-2023 History of Presen t illness Narrative [facility] GENER[facility] SURG[facility]-BARIATRIC [address] [place] [phone] SURGICAL WEIGHT LOSS PROGRAM PROGRESS NOTE [id number] Patient: Michelle Rivera Service Date: 11/28/2023 BP [...] in 1 year documented in this encounter [facility] 11-28-2023 Miscellaneous Notes Addended by: PERLA BAJWA on: 11/28/2023 10:36 AM Modules accepted: Orders documented in this encounter [facility] 11-28-2023 Note Addended by: PERLA BAJWA on: 11/28/2023 10:36 AM Modules accepted: Orders [facility] 09-05-2023 Note HNO ID: [id number] Author: MARCELINA MCMANUS, OTR/L Service: ? Author Type: Occupational Therapist Type: Progress Notes Filed: 09/05/2023 12:57 Note Text: 09/05/2023 [facility] OCCUPATIONAL THERAPY DISCONTINUANCE OF CARE Plan of Care Period: Start of Care Date: 02/22/23 Last Visit Date: 03/21/2023 Therapy Program: The following is a summary of the interventions provided for this episode of care; Therapeutic exercise, Manual therapy, Self-half-way management, and Patient/Family/Caregiver Education Assessment: Based on most recent visit, patient was progressing as expected toward functional goals based on pain levels and documented subjective information on progress. Unable to formally assess goal achievement due to non-compliance with therapy plan of care. Reason for Discontinuation of Care: Patient has not returned to therapy or scheduled additional follow-up appointments. Marcelina Mcmanus, OTR/L #[id number] [facility] 08-29-2023 History of Presen t illness Narrative [...] Lerner 08/29/23 0950 documented in this encounter [facility] 07-05-2023 Miscellaneous Notes I have tried to reach patient multiple times. Phone goes to [employer]. I sent 2 my chart messages. I had a spot on hold for 07/15 for quite awhile. I had to remove the hold to offer to another patient. Yamile Kaba documented in this encounter [facility] 06-06-2023 Note HNO ID: [id number] Author: Frank Negron, DO Service: ? Author [...] treatment if they present. Frank Negron D.O. [facility] Orthopaedic and Rheumatologic [place] Team Physician, [facility] Consulting Physician, [place] Lexi Reddy, Adult Health Clinical Nurse Specialist [phone] Patient verbalizes understanding and agrees with the treatment plan as detailed above. [facility] 05-16-2023 Evaluation note Encounter Date Diagnosis Assessment [...] Above note written by Anthony Carcamo LPN, [employer]. Edited and approved by Dr. Ed Malhotra MD. [employer] Other 09-01-2023 NoteHNO ID: [id number] Author: Frank Negron, DO Service: ? Author Type: Physician Type: Progress Notes Filed: 05/03/2023 10:17 AM Note Text: Lateral epicondylitis of right elbow (primary encounter diagnosis) Minimally Invasive Tenotomy Informed Consent Consent Obtained: Written [place] Protocol A moment to CARE was completed. [...] possible retained foreign bodies accounted for. [facility] Instructions* Patient Instructions* Frank Negron, - 05/03/2023 9:51 AM EDT PHUONG POST-PROCEDURE [...] Best way to connect would be via Archsy or directly call Yamile at [phone]. If unable to connect, please proceed to [...] and beyond. Thank you for choosing the [facility] Medical Orthopedic team for your care. Frank Negron D.O. Sports & Medical Orthopaedics [facility] Sports Health Team Physician, [facility] Yamile Reddy, Adult Health Clinical Nurse Specialist [phone] documented in this encounterAdams [facility]09-[facility] History of Present illness Narrative* Frank Negron DO - 05/03/2023 9:50 AM EDTAssociated Order(s): Minimally Invasive Tenotomy Post-Procedure Diagnose(s): Lateral epicondylitis of right elbow Lateral epicondylitis of right elbow (primary encounter diagnosis) Minimally Invasive Tenotomy Informed Consent Consent Obtained: Written [place] Protocol A moment to CARE was completed. [...] for. Frank Negron DO documented in this encounterAdams [facility] Hospital07-20-2023 NoteHNO ID: [id number] Author: Marcelina Mcmanus OTR/Emely Service: ? Author [...] : 757 Session Stop Time : 847 LY Merino/Emely #[id number] Miscellaneous Notes* Telephone Encounter - Leslie Sparks RN - 03/08/2023 5:19 PM EDT Please see other encounter for documentation to patient. documented in this encounterAdams [facility] Hospital07-06-2023 NoteHNO ID: [id number] Author: LY Drew/Emely Service: ? Author Type: Occupational Therapist Type: Progress Notes Filed: 03/07/2023 11:52 AM Note Text: Episode Visit Count: 3 Therapist That Will Accept/Oversee The Plan Of Care: Estephania Whitt, OT/L, CHT Start of Care Date: 02/22/23 Onset [...] to not working this week) *Significant bilateral infant room teacher strength deficit (as noted below) *Good compliance [...] OBJECTIVE MEASURES WITH LEVEL OF FUNCTION: 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 norms: age 35-39 R: 50-99 L: 49-91 Hand Strength: Transit Operations Supervisor Position 2 Hand Strength R Transit Operations Supervisor Position 2 (lbs): 21 lbs (Slight increase in pain to 3/10) L Transit Operations Supervisor Position 2 (lbs): 40 lbs (No increase in pain remained at 1/10) TREATMENT: Therapeutic Exercise: 1: Discussed with patient her subjective experience since last treatment and reviewed her performance and compliance with plan of care 2: AROM bilateral wrist extension/flexion stretches with elbow flexed and also slightly extended performed 3: *[place] gel ball issued to patient; instructed, performed and added to home program gentle infant room teacher PREs to home program 4: *Modified IASTM utilizing the back edge of a spoon was instructed, performed and added to home program 5: Soft tissue circular massage performed Skilled Intervention: Patient was educated in proper exercise technique and purpose for exercises. Reviewed and educated patient on additions/changes for home exercise program as above (*). Home Program Assigned: 1: [place] gel ball: infant room teacher and hold each effort for 2-3 seconds, [...] Total Treatment Time Minutes (timed/untimed): 40 OFE Drew, [facility]07-06-2023 History of Present illness Narrative* ANIYAH Drew - 03/07/2023 10:50 AM EDT Episode Visit Count: 3 Therapist That Will Accept/Oversee The Plan Of Care: Estephania Whitt, OT/L, CHT Start of Care Date: 02/22/23 Onset [...] to not working this week) *Significant bilateral infant room teacher strength deficit (as noted below) *Good compliance [...] OBJECTIVE MEASURES WITH LEVEL OF FUNCTION: 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 norms: age 35-39 R: 50-99 L: 49-91 Hand Strength: Transit Operations Supervisor Position 2 Hand Strength R Transit Operations Supervisor Position 2 (lbs): 21 lbs (Slight increase in pain to 3/10) L Transit Operations Supervisor Position 2 (lbs): 40 lbs (No increase in pain remained at 1/10) TREATMENT: Therapeutic Exercise: 1: Discussed with patient her subjective experience since last treatment and reviewed her performance and compliance with plan of care 2: AROM bilateral wrist extension/flexion stretches with elbow flexed and also slightly extended performed 3: *[place] gel ball issued to patient; instructed, performed and added to home program gentle infant room teacher PREs to home program 4: *Modified IASTM utilizing the back edge of a spoon was instructed, performed and added to home program 5: Soft tissue circular massage performed Skilled Intervention: Patient was educated in proper exercise technique and purpose for exercises. Reviewed and educated patient on additions/changes for home exercise program as above (*). Home Program Assigned: 1: [place] gel ball: infant room teacher and hold each effort for 2-3 seconds, [...] Total Treatment Time Minutes (timed/untimed): 40 OFE Drew, CHT documented in this encounterAdams [facility] Hospital06-30-2023 NoteHNO ID: [id number] Author: ANIYAH Drew Service: ? Author Type: [...] more comfortable, but will try the tg Transit Operations Supervisor 4.7 sleeve issued to day as an [...] status, discuss if improved fit of tg Transit Operations Supervisor sleeves or if ordered alternate sleeve, discuss [...] for home exercise program as above (*). Self-Detention Management: 1: Reinforced modification of daily activity performance - especially during dog grooming tasks 2: Reinforced icing 3: Discussed compression sleeve options and reviewed some types available online 4: *tg Transit Operations Supervisor (size 4.7 ) compression sleeve issued as [...] extremities vs. upper extremities (more content not included)...[facility]06-30-2023 History of Present illness Narrative* LY Drew/Emely - 03/01/2023 8:01 AM EDT Episode Visit [...] more comfortable, but will try the tg Transit Operations Supervisor 4.7 sleeve issued to day as an [...] status, discuss if improved fit of tg Transit Operations Supervisor sleeves or if ordered alternate sleeve, discuss [...] for home exercise program as above (*). Self-Detention Management: 1: Reinforced modification of daily activity performance - especially during dog grooming tasks 2: Reinforced icing 3: Discussed compression sleeve options and reviewed some types available online 4: *tg Transit Operations Supervisor (size 4.7 ) compression sleeve issued as [...] see photo on your phone for [employer] option 4: L3908 WHO is the billing [...] wrist flexion 3 sessions daily. 6: tg Transit Operations Supervisor compression sleeve (size 4.7 ) can be utilized instead of the size F or G previously issued if less itchiness and more comfortable Billing Therapeutic Exercise Treatment Minutes: 25 Self-Care/Home Management Treatment Minutes: 30 Total Treatment Time Minutes (timed/untimed): 55 OFE Drew, CHT documented in this encounterAdams County Hospital06-29-2023 Evaluation note* Encounter Date Diagnosis Assessment [...] note writ ten by Anthony Carcamo LPN, [employer]. Edited and approved by Dr. Ed Malhotra MD. [employer] Other 06-29-2023 Evaluation note* Encounter Date Diagnosis Assessment Notes Treatment Notes Treatment Clinical Notes Jan, Lumbosacral spondylosis without myelopathy (ICD-10 - M47.817) [employer] Other 06-23-2023 NoteHNO ID: [id number] Author: LY Drew/Emely Service: ? Author Type: Occupational Therapist Type: Progress Notes Filed: 03/01/2023 9:13 AM Note Text: Episode Visit Count: 1 Therapist That Will Accept/Oversee The Plan Of Care: OFE Mancini, T Start of Care Date: 02/22/23 Onset Date: (Rx 02/13/23, symptom onset 2-3 yrs with exacerbation past year) Patient Identified by Name and Date of : Yes [facility] OCCUPATIONAL [...] assessment, treatment plan and goals established for infant room teacher strength by Progress Note update. Patient will [...] of Visits Planned: 8 Planned Treatment Interventions: Self-half-way management (17541), Neuromuscular re-education (45923), Manual therapy (55794), Therapeutic exercise (02633), Prefabricated orthosis fitting PLAN FOR NEXT VISIT: [...] and recently passed. 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 I [...] brace but sometimes I (more content not included)...[facility]06-[facility] History of Present illness Narrative* ANIYAH Drew - 02/22/2023 9:30 AM EDT Episode Visit Count: 1 Therapist That Will Accept/Oversee The Plan Of Care: OFE Mancini, T Start of Care Date: 02/22/23 Onset Date: (Rx 02/13/23, symptom onset 2-3 yrs with exacerbation past year) Patient Identified by Name and Date of : Yes [facility] OCCUPATIONAL [...] assessment, treatment plan and goals established for infant room teacher strength by Progress Note update. Patient will [...] of Visits Planned: 8 Planned Treatment Interventions: Self-half-way management (63363), Neuromuscular re-education (87946), Manual therapy (99403), Therapeutic exercise (58007), Prefabricated orthosis fitting PLAN FOR NEXT VISIT: [...] and recently passed. 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 Self-Detention Management: 1: Body ergonomics and positioning discussed [...] 55 OFE Drew, CHT documented in this encounterAdams County Hospital06-15-2023 NoteHNO ID: [id number] Author: Frank Negron, DO Service: ? Author Type: Physician Type: Progress Notes Filed: 02/14/2023 12:57 PM Note Text: [facility] Office Visit Documentation Note [facility] Sports Medicine Orthopaedic and Rheumatologic [place] REASON FOR VISIT / CHIEF COMPLAINT SERVICE DATE: February 14, 2023 PCP: Bernarda Pinto INBOUND SALES REPRESENTATIVE CHIEF COMPLAINT: Michelle Rivera is a 38 [...] plan as detailed above. Frank Negron D.O. [facility]umat[facility] [place] Team Physician, [facility] Consulting Physician, [place] Lexi Reddy, Adult Health Clinical Nurse Specialist [phone] 02-14-2023 History of Present illness Narrative* Frank Negron, DO - 02/14/2023 11:22 AM EDT Images from the original note were not included. [facility] Office Visit Documentation Note [facility] Sports Medicine Orthopaedic and Rheumatologic [place] REASON FOR VISIT / CHIEF COMPLAINT SERVICE DATE: February 14, 2023 PCP: Bernarda Pinto INBOUND SALES REPRESENTATIVE CHIEF COMPLAINT: Michelle Rivera is a 38 [...] plan as detailed above. Frank Negron D.O. [facility] Rheumat[facility] [place] Team Physician, [facility] Consulting Physician, [place] Lexi Reddy, Adult Health Clinical Nurse Specialist [phone] documented in this encounterAdams County Hospital06-02-2023 Miscellaneous Notes* Telephone Encounter - Lesly [...] like to complete this witha facility in [place], [place]. Pt does not have the fax number but will try to get this and call us back. [place] OT phone [phone] Patient has been identified by name and birthdate. Duration of symptoms: N/A Person calling: self Call patient at: on cell [phone] (home) Was an appointment scheduled: No Closing statement: Results or non-symptom based questions: Thank you for calling [facility], your call will be returned within the next business day. Amy Wilson documented in this encounterAdams County Hospital05-11-2023 Evaluation note* Encounter Date Diagnosis Assessment Notes Treatment Notes Treatment Clinical Notes December, Lumbosacral spondylosis without myelopathy (ICD-10 - M47.817) [place] [employer] Other 04-20-2023 NoteHNO ID: [id number] Author: Frank Negron DO Service: ? Author Type: Physician Type: Progress Notes Filed: 12/20/2022 12:52 PM Note Text: Right elbow pain (primary encounter diagnosis) Lateral epicondylitis of both elbows Biologics Injection: R elbow Previously completed treatments/injections: Platelet Rich Plasma Informed Consent Consent Obtained: Written [place] Protocol A moment to CARE was completed. [...] retained foreign bodies accounted for. Frank Negron [facility]04-20-2023 History of Present illness Narrative* Frank Negron DO - 12/20/2022 12:29 PM EDTAssociated Order(s): Biologics Injection: R elbow Post-Procedure Diagnose(s): Right elbow pain; Lateral epicondylitis of both elbows Right elbow pain (primary encounter diagnosis) Lateral epicondylitis of both elbows Biologics Injection: R elbow Previously completed treatments/injections: Platelet Rich Plasma Informed Consent Consent Obtained: Written [place] Protocol A moment to CARE was completed. [...] for. Frank Negron DO documented in this encounterAdams County Hospital04-13-2023 Miscellaneous Notes* Telephone Encounter - Therese [...] of the prior surgery she had.Pt states told her he would fit her in but I don't have any doc stating this. Patient states she can pay today as soon as she gets home. Patient would like someone to advise herat the [phone]. It is ok to leave a detailed VM if need Pt states she has a second # which is [phone] and that is the PT father Humphrey and you can leave a message with him as he goes to many of her appts with her. ( Per PT ) documented in this encounterAdams County Hospital04-04-2023 NoteHNO ID: [id number] Author: Frank Negron, DO Service: ? Author Type: Physician Type: Progress Notes Filed: 12/04/2022 10:03 AM Note Text: [facility] Office Visit Documentation Note [facility] Sports Medicine Orthopaedic and Rheumatologic [place] HISTORY OF PRESENT ILLNESS (HPI) SERVICE DATE: [...] EXCEPT FOR MINIMAL LATERAL EPICONDYLAR ENTHESOPATHY BILATERALLY Test Pilot: SHAYNE Transcribe Date/Time: Jul 20 2022 10:34A ... Last MRI Elbow - Impression Only MRI ELBOW WO IVCON RT Exam End: 09/11/2022 11:27 AM (Final result) Impression: IMPRESSION: 1. Tendinosis and a small partial tear of the common extensor tendon origin. Test Pilot: SHAYNE Transcribe Date/Time: Sep 11 2022 11:42A... [...] with the treatment plan. Frank Negron D.O. [facility] Orthopaedic and Rheumatologic [employer] Designer, [facility] AND [facility] Program Team Physician, [facility] [employer] Consulting Physician, [place] Lexi Reddy, Adult Health Clinical Nurse Specialist [phone] History of Present illness Narrative* Frank Negron DO - 12/04/2022 9:40 AM EDT Images from the original note were not included. [facility] Office Visit Documentation Note [facility] Sports Medicine Orthopaedic and Rheumatologic [place] HISTORY OF PRESENT ILLNESS (HPI) SERVICE DATE: [...] EXCEPT FOR MINIMAL LATERAL EPICONDYLAR ENTHESOPATHY BILATERALLY Test Pilot: SHAYNE Transcribe Date/Time: Jul 20 2022 10:34A ... Last MRI Elbow - Impression Only MRI ELBOW WO IVCON RT Exam End: 09/11/2022 11:27 AM (Final result) Impression: IMPRESSION: 1. Tendinosis and a small partial tear of the common extensor tendon origin. Test Pilot: SHAYNE Transcribe Date/Time: Sep 11 2022 11:42A... [...] with the treatment plan. Frank Negron D.O. [facility] Orthopaedic and Rheumatologic Mark Up Designer, [facility] & T.E.A.M. Program Team Physician, [facility] [employer] Consulting Physician, [place] Lexi Reddy, Adult Health Clinical Nurse Specialist [phone] documented in this encounterAdams County Hospital02-09-2023 Evaluation note* Encounter Date Diagnosis Assessment [...] note writ ten by Amrit Vargas MA, [employer]. Edited and approved by Dr. Ed Malhotra MD. [employer] Other 01-16-2023 NoteHNO ID: [id number] Author: Frank Negron, DO Service: ? Author Type: Physician Type: Progress Notes Filed: 09/17/2022 10:48 AM Note Text: [facility] Office Visit Documentation Note [facility] Sports Medicine Orthopaedic and Rheumatologic [place] HISTORY OF PRESENT ILLNESS (HPI) SERVICE DATE: [...] EXCEPT FOR MINIMAL LATERAL EPICONDYLAR ENTHESOPATHY BILATERALLY Test Pilot: SHAYNE Transcribe Date/Time: Jul 20 2022 10:34A ... Last MRI Elbow - Impression Only MRI ELBOW WO IVCON RT Exam End: 09/11/2022 11:27 AM (Final result) Impression: IMPRESSION: 1. Tendinosis and a small partial tear of the common extensor tendon origin. Test Pilot: SHAYNE Transcribe Date/Time: Sep 11 2022 11:42A... ASSESSMENT / PLAN CLINICAL IMPRESSION / ASSESSMENT: CLINICAL IMPRESSION / ASSESSMENT: (M77.11, M77.12) Lateral epicondylitis of both elbows (primary encounter diagnosis) (M25.522) Left elbow pain (M25.521) Right elbow pain (M79.7) Fibromyalgia RECOMMENDATION / PLAN: Counseling / Referral A total of 20 minutes were spent [id number] with the patient during this encounter and [...] include #1 bilateral PRP injections at $1500 [id number] Option #2 bilateral minimally invasive percutaneous tendon debridement Option #3 surgical consult.. Follow up: Okay to send a MyChart note on my recommendation after ultrasound of the left lateral elbow for evaluation of chronicity of common extensor tendon injury. Written instructions (see patient instructions) and verbal health education given to patient. Patient verbalizes understanding and agrees with the treatment plan. Frank Negron D.O. [facility] Orthopaedic and Rheumatologic Mark Up Designer, [facility] AND T.E.A.M. Program Team Physician, [facility] [employer] Consulting Physician, [place] Lexi Reddy, Adult Health Clinical Nurse Specialist [phone] City Hospital 09-17-2022 Miscellaneous Notes* Telephone Encounter - Keshawn Castro - 09/17/2022 11:48 AM EST Pt is scheduled for their MSK US on 11/16 at [place]. * Telephone Encounter - Xander Alondra - 09/17/2022 10:45 AM EST Visit Type: [...] locations. Slot held: N/A documented in this encounterAdams County Hospital01-16-2023 Instructions* Patient Instructions* Frank Negron DO - 09/17/2022 10:35 AM EST IMAGING & LABORATORY Dr. Negron has requested further imaging to help coordinate your individualized plan of care. Most of these images will need to be appropriately scheduled. MRI/CT/Xray : Please stop at the front line leader to coordinate timing and scheduling of your image. IF your image is completed outside of the [facility], two steps will need to be taken and presented to Dr. Negron's office for review. 1. Gather a CD copy of your image at the time of service. 2. Gather Radiology Report, when available. Reports can be faxed to [phone]. [facility] Ultrasound : Please call [phone] to schedule your ultrasound appointment. LAB Requests: These can be completed at your nearest [facility] LAB facility. Please allow for up to one week for results to finalize. Follow up: You may request Archsy release of your imaging at 3 DAYS after your imaging appointment. Dr. Negron will often read the image and make a recommendation through Archsy. Please understand, that due to the complexity of the presenting issue, many patients will need a physical examination even after their imaging, which would require a follow up officeappointment. To make an appointment, please call [phone] or Request Appointment option in Archsy. Thank you. Dr. Jamil Negron D.O. [facility] Orthopaedic and Rheumatologic [place] Team Physician, [facility] Consulting Physician, [place] Lexi Reddy, Adult Health Clinical Nurse Specialist [phone] documented in this encounterAdams County Hospital01-16-2023 History of Present illness Narrative* Frank Negron DO - 09/17/2022 10:15 AM EST Images from the original note were not included. [facility] Office Visit Documentation Note [facility] Sports Medicine Orthopaedic and Rheumatologic [place] HISTORY OF PRESENT ILLNESS (HPI) SERVICE DATE: [...] EXCEPT FOR MINIMAL LATERAL EPICONDYLAR ENTHESOPATHY BILATERALLY Test Pilot: SHAYNE Transcribe Date/Time: Jul 20 2022 10:34A ... Last MRI Elbow - Impression Only MRI ELBOW WO IVCON RT Exam End: 09/11/2022 11:27 AM (Final result) Impression: IMPRESSION: 1. Tendinosis and a small partial tear of the common extensor tendon origin. Test Pilot: SHAYNE Transcribe Date/Time: Sep 11 2022 11:42A... ASSESSMENT / PLAN CLINICAL IMPRESSION / ASSESSMENT: CLINICAL IMPRESSION / ASSESSMENT: (M77.11, M77.12) Lateral epicondylitis of both elbows (primary encounter diagnosis) (M25.522) Left elbow pain (M25.521) Right elbow pain (M79.7) Fibromyalgia RECOMMENDATION / PLAN: Counseling / Referral A total of 20 minutes were spent [id number] with the patient during this encounter and [...] include #1 bilateral PRP injections at $1500 [id number] Option #2 bilateral minimally invasive percutaneous tendon debridement Option #3 surgical consult.. Follow up: Okay to send a MyChart note on my recommendation after ultrasound of the left lateral elbow for evaluation of chronicity of common extensor tendon injury. Written instructions (see patient instructions) and verbal health education given to patient. Patient verbalizes understanding and agrees with the treatment plan. Frank Negron D.O. [facility] Orthopaedic and Rheumatologic Mark Up Designer, [facility] & T.E.A.M. Program Team Physician, [facility] [employer] Consulting Physician, [place] Lexi Reddy, Adult Health Clinical Nurse Specialist [phone] documented in this encounterAdams County Hospital01-10-2023 NoteHNO ID: [id number] Author: RT Dickson(R) Service: ? Author Type: [...] BY: RT Dickson(R) September 11, 2022 11:22 [facility]01-10-2023 History of Present illness Narrative* CAYLA FormanR) - 09/11/2022 11:22 AM EST Radiology Service [...] 11, 2022 11:22 AM [facility]* Encounter Date Diagnosis Assessment [...] we can consider back on trek in [place], chronic pain therapy. . Anatomy of spine discussed in detail inpatient in regard to patients condition. Sep, Lumbosacral spondylosis without myelopathy (ICD-10 - M47.817) Sep, Chronic pain (ICD-10 - G89.29) Sep, Other Above note writ ten by Anthony Carcamo LPN, [employer]. Edited and approved by Dr. Ed Malhotra MD. [employer] Other 12-19-2022 NoteHNO ID: [id number] Author: RT Steve(R) Service: Radiology Author Type: [...] BY: RT Steve(R) August 20, 2022 10:54 [facility] [id number] History of Present illness Narrative* Frank Negron DO - 08/20/2022 9:59 AM EST Images from the original note were not included. [facility] Office Visit Documentation Note [facility] Sports Medicine Orthopaedic and Rheumatologic [place] HISTORY OF PRESENT ILLNESS (HPI) CHIEF COMPLAINT / REASON FOR VISIT SERVICE DATE: August 20, 2022 PCP: No primary care provider on file. Michelle Rivera is here today at request of Libia Gomez MD specifically for consultation of my opinion in regards to the chief complaint listed below. Correspondence will be shared today via the [employer] record or through regular mail, where applicable. [...] EXCEPT FOR MINIMAL LATERAL EPICONDYLAR ENTHESOPATHY BILATERALLY Test Pilot: SHAYNE Transcribe Date/Time: Jul 20 2022 10:34A [...] with the treatment plan. Frank Negron D.O. [facility] Orthopaedic and Rheumatologic Mark Up Designer, [facility] Program Team Physician, [facility] Baseball [employer] Consulting Physician, [place] Lexi Yamile Reddy, Adult Health Clinical Nurse Specialist [phone] documented in [facility] encounterAd[facility]12[facility] Evaluation note* Encounter Date Diagnosis Assessment [...] note writ ten by Anthony Carcamo LPN, [employer]. Edited and approved by Dr. Ed Malhotra MD. [employer] Other 11-18-2022 History of Present illness Narrative* [...] therapy. 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 Edited and approved by Dr. Ed Malhotra MD. [place] [employer] Other 08-16-2022 [facility]* Encounter Date Diagnosis Assessment Notes [...] note writ ten by Amrit Vargas MA, [employer]. Edited and approved by Dr. Ed Malhotra MD. [employer] Other 07-18-2022 Evaluation note* Encounter Date Diagnosis [...] to Dr. Terrell Malhotra for possible injections. [employer] Other 04-28-2022 Evaluation note* Encounter Date Diagnosis [...] note writ ten by Amrit Vargas MA, [employer]. Edited and approved by Dr. Ed Malhotra MD. [employer] Other 03-17-2022 Evaluation note* Encounter Date Diagnosis [...] note writ ten by Anthony Carcamo LPN, [employer]. Edited and approved by Dr. Ed Malhotra MD. [employer] Other 02-23-2022 Evaluation note* Encounter Date Diagnosis [...] note writ ten by Amrit Vargas CMA, [employer]. Edited and approved by Dr. Ed Malhotra MD. [employer] Other 01-13-2022 Evaluation note* Encounter Date Diagnosis [...] Above note written by Anthony Carcamo LPN, [employer]. Edited and approved by Dr. Ed Malhotra [...] negative findings were considered in medical decision-making. [employer] Other 06-01-2015 History general Narrative - Reported* Type Description Date Medical History Back pain Medical History Polina's disease Medical History asthma Surgical History tonsillectomy 2000 Hospitalization History back pain January [employer] Other 06-01-2015 History general Narrative - Reported* Type Description Date Medical History Back pain Medical History Polina's disease Medical History asthma Surgical History tonsillectomy 2000 Surgical History gastric bypass 2022 Hospitalization History back pain January [employer] Other Evaluation + Plan note Future Appointments Appointment Date:07/20/2024 10:45:00 AM Scheduled Provider:Amy Durbin PA-C Location:[facility] [place] Appointment Type:Pain Management - New (FT) [facility] evaluation noteNo InformationNort [employer] Other Evaluation noteNo assessment information available [facility] Work Phone: Evaluation note* Diagnosis Lateral epicondylitis of both elbows- Primary Lateral epicondylitis of elbow [facility] encounter [facility] Diagnosis Left elbow pain- Primary Pain in joint, upper arm Lateral epicondylitis of both elbows Lateral epicondylitis of elbow Right elbow pain Pain in joint, upper arm Fibromyalgia Mylagia and myositis, unspecified Anxiety Anxiety state, unspecified Sleep apnea, unspecified type Cervicalgia documented in this encounter [facility]* Diagnosis Lateral epicondylitis of both elbows- Primary Lateral epicondylitis of elbow Left elbow pain Pain in joint, upper arm Right elbow pain Pain in joint, upper arm Fibromyalgia Mylagia and myositis, unspecified [facility] Diagnosis Lateral epicondylitis of both elbows- Primary Lateral epicondylitis of elbow Left elbow pain Pain in joint, upper arm [facility] Diagnosis Right elbow pain- Primary Pain in joint, upper arm Lateral epicondylitis of both elbows Lateral epicondylitis of elbow [facility] Diagnosis Right elbow pain- Primary Pain in joint, upper arm Lateral epicondylitis of right elbow Lateral epicondylitis of elbow [facility] [place] [facility] Diagnosis Right elbow pain- Primary Pain in joint, upper arm Lateral epicondylitis of right elbow Lateral epicondylitis of elbow documented in this encounter [facility] [place] [facility]* Diagnosis Right elbow pain- Primary Pain in joint, upper arm Lateral epicondylitis of right elbow Lateral epicondylitis of elbow documented in this encounter [facility] [place] [facility]* Diagnosis Right elbow pain- Primary Pain in joint, upper arm Lateral epicondylitis of right elbow Lateral epicondylitis of elbow documented in this encounter [place] note* Diagnosis Lateral epicondylitis of right elbow- Primary Lateral epicondylitis of elbow documented in this encounter [facility] [place] [facility]* Diagnosis Chronic low back pain with sciatica, sciatica laterality unspecified, unspecified back pain laterality- Primary Personal history of fibromyalgia Personal history of other musculoskeletal disorders Polina's disease Chronic lymphocytic thyroiditis Postsurgical malabsorption Drug-induced constipation Other constipation History of gastric bypass documented [facility] this encounter [facility] [place] [facility]* Diagnosis Onset Date Resolution Status Sinusitis noneactive Sore throat noneactive Arthritis of lumbosacral spine acute Chronic pain acute Right hip pain noneactive [facility] Work Phone: Evaluation note* Diagnosis Migraine with aura and without status migrainosus, not intractable- Primary Malnutrition following gastrointestinal surgery Other and unspecified postsurgical nonabsorption History of gastric bypass Postsurgical malabsorption Abdominal pannus Localized adiposity [facility]* Diagnosis Acne, unspecified acne type- Primary Chronic low back pain with sciatica, sciatica laterality unspecified, unspecified back pain laterality S/P bariatric surgery History of gastric bypass Encounter to establish care documented in this encounter [facility] [place] [facility]* Diagnosis Lateral epicondylitis of both elbows Lateral epicondylitis of elbow Left elbow pain Pain in joint, upper arm Right elbow pain Pain in joint, upper arm Fibromyalgia Mylagia and myositis, unspecified Anxiety Anxiety state, unspecified Sleep apnea, unspecified type Cervicalgia documented in this encounter [facility] [place] [facility]* Diagnosis Pain Generalized pain documented in this encounter [facility] [place] [facility]* Diagnosis Well woman exam with routine gynecological exam Routine gynecological examination documented [facility] this encounter [facility] [place] [facility]* Diagnosis Malnutrition following gastrointestinal surgery Other and unspecified postsurgical nonabsorption History of gastric bypass Postsurgical malabsorption Vitamin B12 deficiency Other B-complex deficiencies documented in this encounter [facility]* Initial onset [...] Aunt had gastric bypass. Hasn't had endoscopy. [id number] Work Phone: Hospital course Narrative No data available for this section [facility] Hospital Discharge instructions No data available for this section [facility] InstructionsNot on filedocumented in this encounter [facility] filedocumented in this encounter [facility]ructionsNot on filedocumented in this encounter [facility] note No data available for this section [facility] reason for referral (narrative)* Diagnostic Procedure Only (Routine) - Authorized Specialty Diagnoses / Procedures Referred By Jorge mcduffie Referred To Contact US IMAGING Diagnoses Lateral epicondylitis of both elbows Procedures US ELBOW LEFT US LMTD JOINT/OTH NONVASC XTR STRUX R-T W/[place] [address] [place] [address] Us Imaging Referral ID Status Reason Start Date Expiration Date Visits Requested Visits Authorized [id number] Authorized Auto-Generat ed Referral 09/17/2022 10/17/2023 1 1 [facility] for referral (narrative)* Consultation (Routine) - Pending Review Specialty Diagnoses / Procedures Referred By Contact Referred To Contact Plastic & Reconstructive Surgery Diagnoses History of gastric bypass Abdominal pannus Localized adiposity Nichol Barrett MD [address] [address] Andrea Ornelas MD [address] [place] [address] Referral ID Status Reason Start Date Expiration Date Visits Requested Visits Authorized [id number] Pending Review Specialty Services Required 11/28/2023 11/27/2024 1 1 [facility] for referral (narrative)* Diagnostic Procedure Only (Routine) - Closed Specialty Diagnoses / Procedures Referred By Contac t Referred To Contact XR IMAGING Diagnoses Pain Procedures XR ELBOW SPECIAL VIEWS AP/LAT/OTHER RIGHT RADEX ELBOW COMPLETE MINIMUM 3 VIEWS Libia Gomez, DO [address] [place] [address] [place] [address] Referral ID Status Reason Start Date Expiration Date V isits Requested Visits Authorized [id number] Closed Auto-Generate d Referral 06/19/2022 07/19/2023 1 1 * Diagnostic Procedure Only (Routine) - Closed Specialty Diagnoses / Procedures Referred By Contac t Referred To Contact XR IMAGING Diagnoses Pain Procedures XR ELBOW SPECIAL VIEWS AP/LAT/OTHER LEFT RADEX ELBOW COMPLETE MINIMUM 3 VIEWS Libia Gomez DO [address] [place] [address] [place] [address] Referral ID Status Reason Start Date Expiration Date V isits Requested Visits Authorized [id number] Closed Auto-Generate d Referral 06/19/2022 07/19/2023 1 1 [facility] for visit NarrativeREVIEW MEDICATION MANAGEMENTNort SquareTrade Other Reason for visit Narrative* Diagnostic Procedure Only (Routine) - Closed Specialty Diagnoses / Procedures Referred By Contac t Referred To Contact XR IMAGING Diagnoses Pain Procedures XR ELBOW SPECIAL VIEWS AP/LAT/OTHER RIGHT RADEX ELBOW COMPLETE MINIMUM 3 VIEWS Libia Gomez DO [address] [place] [address] [place] [address] Referral ID Status Reason Start Date Expiration Date V isits Requested Visits Authorized [id number] Closed Auto-Generate d Referral 06/19/2022 07/19/2023 1 1 [facility] Summary Purpose Family History Unknown Family Member Name Dates Details Family [...] Unknown Not Specified Hypertension Unknown Advance Directives Advance Directive Response Recorded Date/ Time Advance Directives No September 18, 2021 8:30am Latest Code Status on File Code Status Date Activated Date Inactivated Comments Full Code 11/28/2022 9:55 AM 11/28/2022 10:32 PM Latest Code Status on File Code Status Date Activated Date Inactivated Comments Full Code 11/28/2022 9:55 AM 11/28/2022 10:32 PM Date Activated Date Inactivated Comments 11/28/2022 9:55 AM 11/28/2022 10:32 PM Chief [...] epicondylitis of right elbow Procedures CONSULT TO DROPHAMMER OPERATOR OCCUPATIONAL THERAPY [facility] COMPLEX [address] [place] [address] [place] [address] [facility] [place] [address] [place] [address] Referral ID Status Reason Start Date Expiration Date Visits Requested Visits Authorized [id number] Authorized Auto-Generat ed Referral 09/02/2022 09/01/2023 99 99 Specialty Diagnoses / Procedures Referred By Jorge mcduffie Referred To Contact MR IMAGING Diagnoses Lateral epicondylitis of both elbows Left elbow pain Right elbow pain Fibromyalgia Anxiety Sleep apnea, unspecified type Cervicalgia Procedures MRI ELBOW WO IVCON LT MRI ANY JT UPPER EXTREMITY [place] [address] [place] [address] Mr Imaging Referral ID Status Reason Start Date Expiration Date Visits Requested Visits Authorized [id number] Pending Review Auto-Generat ed Referral 2 09/19/2023 1 1 Specialty Diagnoses / Procedures Referred By Jorge mcduffie Referred To Contact MR IMAGING Diagnoses Lateral epicondylitis of both elbows Left elbow pain Right elbow pain Fibromyalgia Anxiety Sleep apnea, unspecified type Cervicalgia Procedures MRI ELBOW WO IVCON RT MRI ANY JT UPPER EXTREMITY [place] [address] [place] [address] Mr Imaging Referral ID Status Reason Start Date Expiration Date Visits Requested Visits Authorized [id number] Pending Review Auto-Generat ed Referral 2 09/19/2023 1 1 Specialty Diagnoses / Procedures Referred By Contac t Referred To Contact [facility] Diagnoses Lateral epicondylitis of both elbows Left elbow pain Right elbow pain Fibromyalgia Anxiety Sleep apnea, unspecified type Cervicalgia Procedures CONSULT TO PHYSICAL THERAPY PHYSICAL THERAPY EVALUATION HIGH COMPLEX [address] [place] [address] [place] [address] [facility] [place] [address] [place] [address] Referral ID Status Reason Start Date Expiration Date Visits Requested Visits Authorized [id number] Pending Review Auto-Generat ed Referral 2 08/20/2023 1 1 Specialty Diagnoses / Procedures Referred By Contac t Referred To Contact XR IMAGING Diagnoses Lateral epicondylitis of both elbows Left elbow pain Right elbow pain Fibromyalgia Anxiety Sleep apnea, unspecified type Cervicalgia Procedures XR CERV OTHER 4V AP/LAT/OBL RADEX SPINE CERVICAL 4 [place] 5 [place] [address] [place] [address] Xr Imaging Referral ID Status Reason Start Date Expiration Date V isits Requested Visits Authorized [id number] Closed Auto-Generate d Referral 08/20/2022 09/19/2023 1 1 Specialty Diagnoses / Procedures Referred By Contac t Referred To Contact Orthopedics Diagnoses Lateral epicondylitis of both elbows Procedures CONSULT TO ORTHOPAEDICS OFFICE/OUTPATIENT [facility] 60-74 MINUTES Libia Gomez DO [facility] [address] [place] [address] Referral ID Status Reason Start Date Expiration Date Visits Requested Visits Authorized [id number] Authorized PCP Requested Referral 2 07/20/2023 1 [...] section and content) DATE CREATED AUTHOR 03/06/2018 [facility] DATE CREATED AUTHOR AUTHOR'S ORGANIZ ATION 10/26/2021 [facility] DATE CREATED AUTHOR AUTHOR'S ORGANIZ ATION 08/24/2022 [facility] DATE CREATED AUTHOR AUTHOR'S ORGANIZ ATION 11/01/[address] [facility] DATE CREATED AUTHOR AUTHOR'S ORGANIZ ATION 12/06/2022 [facility] DATE CREATED AUTHOR AUTHOR'S ORGANIZ ATION 09/07/2023 [facility] DATE CREATED AUTHOR AUTHOR'S ORGANIZ ATION 11/27/2023 [facility] DATE CREATED AUTHOR AUTHOR'S ORGANIZ ATION 11/29/2023 [facility] DATE CREATED AUTHOR AUTHOR'S ORGANIZ ATION 11/29/2023 [facility] DATE CREATED AUTHOR AUTHOR'S ORGANIZ ATION 06/02/2024 [facility] DATE CREATED AUTHOR AUTHOR'S ORGANIZ ATION 07/07/2024 [facility] dical [facility] DATE CREATED AUTHOR AUTHOR'S ORGANIZ ATION 07/15/2024 [facility] REASON FOR VISIT (unrecogniz ed section and content) Reason Comments New Reason Comments New Specialty Diagnoses / Procedures Referred By Contac t Referred To Contact Orthopedics Diagnoses Lateral epicondylitis of both elbows Procedures CONSULT TO ORTHOPAEDICS OFFICE/OUTPATIENT NEW HIGH MDM 60-74 MINUTES Libia Gomez DO [facility] [address] [place] [address] Referral ID Status Reason Start Date Expiration Date V isits Requested Visits Authorized [id number] Closed PCP Requested Referral 07/20/2022 07/20/2023 1 1 Reason Comments Radiology MRI Reason Comments Follow Up Reason Comments Appointment Reason Comments Established Patient Specialty Diagnoses / Procedures Referred By Contac t Referred To Contact ORTHOPAEDIC SURGERY Diagnoses Lateral epicondylitis, right elbow Procedures NJX PLTLT PLASMA W/IMG HARVEST/PREPARATION PRP INJECTION [place] [address] [place] [address] [place] [address] [place] [address] Referral ID Status Reason Start Date Expiration Date V isits Requested Visits Authorized [id number] Closed Financial Clearance Required - Self Pay Patient Cleared - True Self-Pay required payment collected 12/06/2022 02/04/2023 1 1 Reason Comments Orders Reason Comments Established Patient Reason Comments OT EVAL Specialty Diagnoses / Procedures Referred By Contac t Referred To Contact [facility] Diagnoses Right elbow pain Lateral epicondylitis of right elbow Procedures CONSULT TO DROPHAMMER OPERATOR OCCUPATIONAL THERAPY EVAL HIGH COMPLEX [address] [place] [address] [place] [address] [facility] [place] [address] [place] [address] Referral ID Status Reason Start Date Expiration Date Visits Requested Visits Authorized [id number] Authorized Auto-Generat ed Referral 09/02/2022 09/01/2023 99 99 Reason Comments Occupational Therapy Specialty Diagnoses / Procedures Referred By Contac t Referred To Contact [facility] Diagnoses Right elbow pain Lateral epicondylitis of right elbow Procedures CONSULT TO DROPHAMMER OPERATOR OCCUPATIONAL THERAPY EVAL HIGH COMPLEX [address] [place] [address] [place] [address] [facility] [place] [address] [place] [address] Specialty Diagnoses / Procedures Referred By Contac t Referred To Contact Orthopedics / ORTHOPAEDIC SURGERY Diagnoses Lateral epicondylitis, right elbow Pain in right elbow LATERAL EPICONDYLITIS R ELBOW Procedures TENOTOMY ELBOW LATERAL/MEDIAL PERCUTANEOUS US GUIDANCE NEEDLE PLACEMENT IMG S&I TENOTOMY WITH US [place]IDE [place] [address] [place] [address] [place] [address] [place] [address] Referral ID Status Reason Start Date Expiration Date Visits Re quested Visits Authorized [id number] Closed 05/03/2023 09/01/2023 1 1 Reason Comments [...] MRI ANY JT UPPER EXTREMITY W/[place] [address] [place] [address] [place] [address] Referral ID Status Reason Start Date Expiration Date V isits Requested Visits Authorized [id number] Closed Auto-Generate d Referral 09/02/2022 09/01/2023 1 1 Specialty Diagnoses / Procedures Referred By Contac t Referred To Contact MR IMAGING Diagnoses Lateral epicondylitis of both elbows Left elbow pain Right elbow pain Fibromyalgia Anxiety Sleep apnea, unspecified type Cervicalgia Procedures MRI ELBOW WO IVCON LT MRI ANY JT UPPER EXTREMITY W/[place] [address] [place] [address] [place] [address] Referral ID Status Reason Start Date Expiration Date V isits Requested Visits Authorized [id number] Closed Auto-Generate d Referral 09/02/2022 09/01/2023 1 1 Reason Comments Gynecologic Exam Reason Comments Med Refill Care Teams (unrecognized sec tion and content) Team Status: Active Member Role Status Dates Vijaya Pinto APRN [employer] ATTENDANT-C Primary Care Provider Active Team Status: Inactive Member Role Status Dates Vijaya Pinto APRN [employer] ATTENDANT-C Primary Care Provider Active Start: November 11, 2023 End: November 11, 2023 KENYATTA Mendez Attending Provider Active S tart: November 11, 2023 End: November 11, 2023 Team Status: Inactive Member Role Status Dates Vijaya Pinto APRN [employer] ATTENDANT-Jacinto Primary Care Provider Active Start: November 14, 2023 End: November 14, 2023 Ed Malhotra MD Attending Provider Active Sta rt: November 14, 2023 End: November 14, 2023 Team Status: Inactive Member Role Status Dates iVjaya Pinto APRN [employer] ATTENDANT-C Primary Care Provider Active Ed Malhotra MD Attending Provider Active Road Advisor Relationship Specialty Start Date End Date Abundio Galdamez, DO [address] [place] [address] Referring Orthopedics 05/31/22 Road Advisor Relationship Specialty Start Date End Date Abundio Galdamez, DO [address] [place] [address] Referring Orthopedics 05/31/22 Road Advisor Relationship Specialty Start Date End Date Abundio Galdamez, DO [address] [place] [address] Referring Orthopedics 05/31/22 Road Advisor Relationship Specialty Start Date End Date Abundio Galdamez, [address] [place] [address] Referring Orthopedics 05/31/22 Road Advisor Relationship Specialty Start Date End Date Abundio Galdamez, [address] [place] [address] Referring Orthopedics 05/31/22 Road Advisor Relationship Specialty Start Date End Date Abundio Galdamez, DO [address] [place] [address] Referring Orthopedics 05/31/22 Road Advisor Relationship Specialty Start Date End Date Abundio Galdamez, DO [address] [place] [address] Referring Orthopedics 05/31/22 Road Advisor Relationship Specialty Start Date End Date Abundio Galdamez, DO [address] [place] [address] Referring Orthopedics 05/31/22 Road Advisor Relationship Specialty Start Date End Date Abundio Galdamez, DO [address] [place] [address] Referring Orthopedics 05/31/22 Road Advisor Relationship Specialty Start Date End Date Abundio Galdamez, DO [address] [place] [address] Referring Orthopedics 05/31/22 Road Advisor Relationship Specialty Start Date End Date Abundio Galdamez, DO [address] [place] [address] Referring Orthopedics 05/31/22 Road Advisor Relationship Specialty Start Date End Date Abundio Galdamez DO [address] [place] [address] Referring Orthopedics 05/31/22 Road Advisor Relationship Specialty Start Date End Date Abundio Galdamez DO [address] [place] [address] Referring Orthopedics 05/31/22 Road Advisor Relationship Specialty Start Date End Date Abundio Galdamez DO [address] [place] [address] Referring Orthopedics 05/31/22 Road Advisor Relationship Specialty Start Date End Date Vijaya Pinto, [facility] [address], [facility], [place] [id number] PCP - General Family Medicine 11/03/20 Road Advisor Relationship Specialty Start Date End Date Vijaya Pinto, [facility] [address], [facility], [place] [id number] PCP - General Family Medicine 11/03/20 Road Advisor Relationship Specialty Start Date End Date Vijaya Pinto [facility] [address], [place] [address] PCP - General Family Medicine 11/03/20 Road Advisor Relationship Specialty Start Date End Date Abundio Galdamez DO [address] [place] [address] Referring Orthopedics 05/31/22 Road Advisor Relationship Specialty Start Date End Date Abundio Galdamez DO [address] [place] [address] Referring Orthopedics 05/31/22 Road Advisor Relationship Specialty Start Date End Date Rivka Koenig [facility] [address], [place] [id number] PCP - General Nurse Practitioner 01/16/24 Source Comments (unrecognize d section and content) In the event this informatio n is protected by the Federal Confidentiality of Alcohol and Drug Abuse Patient Records regulations: The Federal rules restrict any use of the information to criminally investigate or prosecute any alcohol or drug abuse patient.[facility] the event this information is protected by the Federal Confidentiality of Alcohol and Drug Abuse Patient Records regulations: The Federal rules restrict any use of the information to criminally investigate or prosecute any alcohol or drug abuse patient.[facility] the event this information is protected by the Federal Confidentiality of Alcohol and Drug Abuse Patient Records regulations: The Federal rules restrict any use of the information to criminally investigate or prosecute any alcohol or drug abuse patient.[facility] the event this information is protected by the Federal Confidentiality of Alcohol and Drug Abuse Patient Records regulations: The Federal rules restrict any use of the information to criminally investigate or prosecute any alcohol or drug abuse patient.[facility] the event this information is protected by the Federal Confidentiality of Alcohol and Drug Abuse Patient Records regulations: The Federal rules restrict any use of the information to criminally investigate or prosecute any alcohol or drug abuse patient.[facility] the event this information is protected by the Federal Confidentiality of Alcohol and Drug Abuse Patient Records regulations: The Federal rules restrict any use of the information to criminally investigate or prosecute any alcohol or drug abuse patient.[facility] the event this information is protected by the Federal Confidentiality of Alcohol and Drug Abuse Patient Records regulations: The Federal rules restrict any use of the information to criminally investigate or prosecute any alcohol or drug abuse patient.[facility] the event this information is protected by the Federal Confidentiality of Alcohol and Drug Abuse Patient Records regulations: The Federal rules restrict any use of the information to criminally investigate or prosecute any alcohol or drug abuse patient.[facility] the event this information is protected by the Federal Confidentiality of Alcohol and Drug Abuse Patient Records regulations: The Federal rules restrict any use of the information to criminally investigate or prosecute any alcohol or drug abuse patient.[facility] the event this information is protected by the Federal Confidentiality of Alcohol and Drug Abuse Patient Records regulations: The Federal rules restrict any use of the information to criminally investigate or prosecute any alcohol or drug abuse patient.[facility]In the event this information is protected by the Federal Confidentiality of Alcohol and Drug Abuse Patient Records regulations: The Federal rules restrict any use of the information to criminally investigate or prosecute any alcohol or drug abuse patient.[facility] the event this information is protected by the Federal Confidentiality of Alcohol and Drug Abuse Patient Records regulations: The Federal rules restrict any use of the information to criminally investigate or prosecute any alcohol or drug abuse patient.[facility] the event this information is protected by the Federal Confidentiality of Alcohol and Drug Abuse Patient Records regulations: The Federal rules restrict any use of the information to criminally investigate or prosecute any alcohol or drug abuse patient.[facility] the event this information is protected by the Federal Confidentiality of Alcohol and Drug Abuse Patient Records regulations: The Federal rules restrict any use of the information to criminally investigate or prosecute any alcohol or drug abuse patient.[facility] the event this information is protected by the Federal Confidentiality of Alcohol and Drug Abuse Patient Records regulations: The Federal rules restrict any use of the information to criminally investigate or prosecute any alcohol or drug abuse patient.[facility]In the event this information is protected by the Federal Confidentiality of Alcohol and Drug Abuse Patient Records regulations: The Federal rules restrict any use of the information to criminally investigate or prosecute any alcohol or drug abuse patient.[facility]In the event this information is protected by the Federal Confidentiality of Alcohol and Drug Abuse Patient Records regulations: The Federal rules restrict any use of the information to criminally investigate or prosecute any alcohol or drug abuse patient.[facility]In the event this information is protected by the Federal Confidentiality of Alcohol and Drug Abuse Patient Records regulations: The Federal rules restrict any use of the information to criminally investigate or prosecute any alcohol or drug abuse patient.[facility]In the event this information is protected by the Federal Confidentiality of Alcohol and Drug Abuse Patient Records regulations: The Federal rules restrict any use of the information to criminally investigate or prosecute any alcohol or drug abuse patient.[facility]In the event this information is protected by the Federal Confidentiality of Alcohol and Drug Abuse Patient Records regulations: The Federal rules restrict any use of the information to criminally investigate or prosecute any alcohol or drug abuse patient.[facility] Goals (unrecognized section and content) Goals [...] BE BASED ON THE PRIMARY CLINICAL RECORDS. [employer]. provides no warranty or guarantee of the accuracy or completeness of information in this document.
[2024-07-17 06:56] LABS: HCG Quantitative <1 mIU/mL
[2024-07-17 07:01] LABS: Basophils Percent Auto 0.6 % (0.2-2.0); Eosinophils Absolute Auto 0.1 10^3/uL (0.0-0.7); Eosinophils Percent Auto 1.3 % (0.9-7.0); Hematocrit 34.8 % (36.0-48.0); Hemoglobin 11.3 g/dL (12.0-16.0); Immature Granulocytes Abs Auto 0.01 10^3/uL (0.00-0.03); Immature Granulocytes Pct Auto 0.2 % (0.0-0.5); Lymphocytes Absolute Auto 1.7 10^3/uL (1.2-3.8); Lymphocytes Percent Auto 35.7 % (20.5-60.0); Mean Corpuscular HGB Conc 32.5 g/dL (29.9-35.2); Mean Corpuscular Hemoglobin 29.1 pg (26.7-34.0); Mean Corpuscular Volume 89.7 fL (81.0-99.0); Mean Platelet Volume 9.6 fL (9.5-13.5); Monocytes Absolute Auto 0.5 10^3/uL (0.3-0.8); Monocytes Percent Auto 9.4 % (1.7-12.0); Neutrophils Absolute Auto 2.5 10^3/uL (1.4-6.5); Neutrophils Percent Auto 52.8 % (43.0-75.0); Platelet Count 327 10^3/uL (150-450); Red Blood Count 3.88 10^6/uL (4.20-5.40); Red Cell Distribution Width 12.4 % (11.0-15.0); White Blood Count 4.8 10^3/uL (4.0-11.0)
[2024-07-17] MEDS: LACTATED RINGER'S SOLUTION 1,000 ML 50 ML IV (07:01)
--- NOTE | 2024-07-17 08:40 | PM.ONB ---
Brief Operative Note Date of procedure: 07/17/24 Pre-op diagnosis general: menorrhagia, desires permanent sterilization Post-op diagnosis: same as pre-op Procedure: NAME OF PROCEDURE: robotic assisted Laparoscopic bilateral salpingectomy, with Manda endometrial ablation with hysteroscopy PROCEDURE: The patient was taken back to the OR where she was prepped and draped in the normal sterile fashion after being placed in the dorsal lithotomy position, after being placed under general anesthesia without difficulty. a weighted speculum was then placed into the vagina. Pap and endometrial bx were performed without difficultyThe anterior lip was grasped with a single tooth tenaculum. The patient was then sounded to approximatley 9cm. The patient was gently sounded using Hegar dilators and the hysteroscope was passed through the cervix into the uterus where both ostia were seen. No gross evidence of polyps, fibroids or malignancy. The cervical length was noted to be 4cm. The Manda ablation apparatus was set to approximately 5cm in length. This was placed in through the cervix and into the uterus. After the seal was tested, at that time the total ablation of 120 seconds was performed with the Manda without difficulty. All instruments were removed from the vagina. A wet sponge stick was placed into the patient's vagina. Attention was then turned to the patient's abdomen, where a scalpel was used to make a small infraumbilical incision. The S retractors were then used to dissect the underlying layers until the fascia could be seen. The fascia was then grasped with Nancy clamps and tented up. A knife was then used to make a small incision to the fascia. The muscle was identified, at that time two sutures of #0 Vicryl on a GI needlewas then used and placed through the fascia. The peritoneum was then identified and entered bluntly. The 10-4 Chantale was then placed into the patient's abdomen. This was confirmed with direct visualization of the bowel, using the laparoscope. The patient's abdomen was then insufflated using approximately 4 liters of CO2 gas. Survey of the patient's abdomen demonstrated normal appearing ovaries, uterus and tubes. A second and third lateral robotic ports, which was 8mm in size, was then placed laterally after incision was made in the skin under direct visualization. the robotic arms were engaged. The patient's tube on the patient's right side was identified. The tube was then tented up using a grasper. The ligasure was used to transect and coagulate the mesosalpingx from the fimbriated end to the insertion at the uterus, the tube was amputated and removed in its entirety.? Excellent hemostasis was noted. ?This was performed on the contralateral sideas well. The lateral ports were then moved under direct visualization with excellent hemostasis. The abdomen was deinsufflated. All instruments were removed from the patient's abdomen. The fascia was closed using the #0 Vicryl on GI needle. The skin was closed using 4-0 Vicryl subcuticularly. All instruments were removed from the patient's vagina as well. The patient was taken out of the dorsal lithotomy position and placed in the supine position and taken to recovery in stable condition. Sponge, lap and needle counts were correct x2. ??? Anesthesia: PAUL Surgeon: Kirby Heredia Strings Teacher: Desiree Nielsen Estimated blood loss (mL): 5 Pathology: other (tubes) Condition: stable Disposition: PACU Urinary Catheter Management Urinary Catheter Management Urethral: Cath placed during this visit: no
[2024-07-17] MEDS: LACTATED RINGER'S SOLUTION 1,000 ML 1000 ML IV (08:59)
== END 2024-07-17 10:27 | disposition home or self-care (01) ==
PROVIDERS: Visit Provider Obstetrics & Gynecology
PROC: (CPT 840; principal; 2024-07-17 07:30)
PROC: (CPT 840; 2024-07-17 07:30)
DX: N92.0 Excessive and frequent menstruation with regular cycle (principal); Z30.2 Encounter for sterilization
CPT/HCPCS: 58563; 58661; 36415; 84702; 85025; 88302; J1100; J1171; J1885; J2250; J2405; J2704; J3010

== ENCOUNTER 2024-07-24 12:49 | Emergency (ER) | payer OTHER, SELFPAY ==
[2024-07-24 13:28] VITALS: BP 138/90; PULSE 66; TEMP 37.3; O2SAT 100; BMI 24.0
--- NOTE | 2024-07-24 15:16 | CT_ITS ---
The [address] [address] Patient Name: FRANCISCO CARTER MRN: [id number] date: 1985 Sex: F Assigned Patient Location: ER Current Patient Location: ER Accession/Order Number: [id number] Exam Date: 07/24/2024 16:35 Report Date: 07/24/2024 19:32 At the request of: NICHOL ISAACS Procedure: CT abdomen pelvis w con EXAM: CT abdomen pelvis w con HISTORY: periumbilcal hernia. COMPARISON: Pelvic ultrasound of 07/09/2024. TECHNIQUE: Multiple axial images of the abdomen and pelvis are obtained following IV contrast administration. FINDINGS: The visualized lung bases appear unremarkable. The heart size is normal. The visualized liver and spleen, pancreas and bilateral adrenal glands appear unremarkable. Distended gallbladder is seen. No calcified gallstone is seen. No significant intrahepatic or extrahepatic biliary dilatation is seen. Bilateral kidneys demonstrate normal size, morphology and contrast enhancement. There is no evidence for hydronephrosis bilaterally. The urinary bladder appears unremarkable. Prominent endometrial low density is seen, which may relate to patient menstrual cycle. However, endometrial pathology cannot be entirely excluded. Please correlate clinically. Mild diffuse heterogeneous appearance of the uterus is also seen. A 3.2 cm low density seen in the right pelvic region, which likely represents right ovarian cyst/right ovarian etiology, and which can be better evaluated with pelvic ultrasound, as clinically indicated. Nonobstructive bowel pattern is seen. Normal-appearing appendix is visualized. Large volume of stool is seen throughout the colon. No significant bowel wall thickening is seen. The vascular structures demonstrate normal caliber and contrast enhancement. Approximately 4.5 x 2.8 x 2.1 cm (CC x AP x ML) soft tissue density is seen in the periumbilical subcutaneous tissues of the anterior abdominal wall with extension to the skin, which may represent a postsurgical seroma/hematoma. Additionally, an approximately 3.5 x 4.3 x 1.1 cm (CC x ML x AP) low density seen in the deep subcutaneous tissues of the infraumbilical anterior abdominal wall, which may also represent a postsurgical seroma versus hematoma. Although not favored, early subcutaneous abscesses cannot be excluded. No destructive osseous lesion is seen. CT/CT abdomen pelvis w con IMPRESSION: Approximately 4.5 x 2.8 x 2.1 cm (CC x AP x ML) soft tissue density is seen in the periumbilical subcutaneous tissues of the anterior abdominal wall with extension to the skin, which may represent a postsurgical seroma/hematoma. Additionally, an approximately 3.5 x 4.3 x 1.1 cm (CC x ML x AP) low density is seen in the deep subcutaneous tissues of the infraumbilical anterior abdominal wall, which may also represent a postsurgical seroma versus hematoma. Although not favored, early subcutaneous abscesses cannot be excluded. Distended gallbladder is seen. No calcified gallstone is visualized. Prominent endometrial low density. Please correlate clinically. Probable right ovarian cyst. Electronically authenticated by: EDWIN GAMA Date: 07/24/2024 19:32
--- NOTE | 2024-07-24 15:16 | XR_ITS ---
The [address] [address] Patient Name: FRANCISCO CARTER MRN: [id number] date: 1985 Sex: F Assigned Patient Location: ER Current Patient Location: ER Accession/Order Number: [id number] Exam Date: 07/24/2024 15:24 Report Date: 07/24/2024 15:47 At the request of: NICHOL ISAACS Procedure: XR chest 1V EXAMINATION: XR chest 1V HISTORY: abdominal pain COMPARISON: XR chest 08/28/2019 FINDINGS: LUNGS: No significant pulmonary parenchymal abnormalities. VASCULATURE: No increased pulmonary vasculature. PLEURA: No pneumothorax, effusion, or pleural thickening. CARDIAC: No cardiomegaly or cardiac silhouette abnormality. MEDIASTINUM: No visible mass or adenopathy. BONES: No fracture or visible bone lesion. OTHER: Negative. XR/XR chest 1V IMPRESSION: 1. No acute cardiopulmonary process. Electronically authenticated by: RUSTY MORALES Date: 07/24/2024 15:47
--- NOTE | 2024-07-24 15:17 | ED_ITS ---
HPI HPI - General Adult General Chief complaint: Abdominal Pain Stated complaint: POST SURGERY ISSUE Time Seen by Provider: 07/24/24 14:58 Source: patient Mode of arrival: walk-in History of Present Illness HPI narrative: Patient is a 39-year-old female who presents to the ER with concerns of periumbilical abdominal pain. Pertinent history of recent tubal ligation and ablation procedure with Dr. Heredia last Saturday. Patient states 2 days after surgery she was having a bowel movement and felt constipated, admits to straining which she knows she should not have done and felt a bulge and pain in her lower mid abdomen. Patient states as the swelling around her abdomen has subsided she has noted increase in size and firmness of what appears to be a periumbilical hernia. She was also close seeing Dr. Almonte regarding bright red blood per rectum concerning for internal hemorrhoids. She was trying conservative measures to see if it would relieve on its own. She admits that they may plan to do a colonoscopy. She has a history of a gastric bypass surgery Charisse-en-Y done in 2022 on November 28. Patient states she has had significant weight loss since that procedure and is otherwise done well. She has nausea but no vomiting and stools have been hard despite multiple regimens with MiraLAX, other laxatives, suppositories, Metamucil and stool softeners. If her discomfort is periumbilical. She denies any fevers or chills. Patient states she saw Dr. Almonte a few days ago but not mention her periumbilical pain or suspected hernia. Patient states she is under precautions from gynecology not to lift for 2 weeks postoperatively. Patient did not Clines the need for any pain medicine citing family history of addiction, but not herself. Patient states she has been using Motrin Severity: moderate Quality: Reports aching, sharp and dull Pain Consistency: Reports constant Relieving factors: Reports none Exacerbating factors: Reports movement and other (BM's) Related Data Home Medications ?Medication ?Instructions ?Recorded ?Confirmed calcium 200 mg (as 2 tab PO QID 07/09/24 07/17/24 citrate)-vitamin D3 6.25 mcg (250 unit) tablet cyanocobalamin (vitamin B-12) 1,000 mcg IM .qmonth 07/09/24 07/17/24 1,000 mcg/mL injection solution omeprazole 20 mg capsule,delayed 20 mg PO BID PRN heartburn 07/09/24 07/17/24 release vitamin with calcium 1 tab PO DAILY 07/09/24 07/17/24 no.72-iron 27 mg-folic acid 1 mg tablet ( Vitamins Plus Low Iron) zinc gluconate 50 mg tablet 50 mg PO DAILY 07/09/24 07/17/24 Previous Rx's ?Medication ?Instructions ?Recorded hydrocodone 5 mg-acetaminophen 325 1 tab PO Q4H PRN pain 4 days #16 07/17/24 mg tablet tabs ibuprofen 800 mg tablet 800 mg PO Q8H PRN pain 14 days #40 07/17/24 tabs Allergies Allergy/AdvReac Type Severity Reaction Status Date / Time NSAIDS (Non-Steroidal Allergy Severe Gastrointestinal Verified 07/17/24 07:04 Anti-Inflamma Upset Penicillins Allergy swelling, Verified 07/09/24 14:26 itching, SOB Sulfa (Sulfonamide Allergy swelling, Verified 07/09/24 14:26 Antibiotics) itching, SOB Opioid HPI Opioid Management Most Recent Opioid Data: Last Pain Scale 3 07/17/24 10:27 07/17/24 Review of Systems ROS Constitutional Denies: fever or chills Eyes Denies: change in vision Ears, nose, mouth, and throat Denies: throat pain Cardiovascular Denies: chest pain or palpitations Respiratory Denies: shortness of breath or cough Gastrointestinal Reports: abdominal pain, nausea and constipation; Denies: vomiting or coffee grounds in vomit Genitourinary Denies: painful urination Musculoskeletal Denies: back pain or neck pain Integumentary/Breast Denies: rash Neurological Denies: headache Psychiatric Denies: anxiety Endocrine Denies: excessive urination Hematologic/Lymphatic Denies: easy bruising [facility] Medical History (Updated 07/24/24 @ 19:53 by LENNOX Irene) Meningitis spinal (1986) ?G03.9 - Meningitis, unspecified (ICD-10) Sprain of UCL of elbow ?S53.449A - Ulnar collateral ligament sprain of unspecified elbow, initial encounter (ICD-10) Shoulder pain ?M25.519 - Pain in unspecified shoulder (ICD-10) Disc herniation Back pain ?M54.9 - Dorsalgia, unspecified (ICD-10) Anemia ?D64.9 - Anemia, unspecified (ICD-10) Depression ?F32.A - Depression, unspecified (ICD-10) Panic attacks ?F41.0 - Panic disorder [episodic paroxysmal anxiety] (ICD-10) Anxiety ?F41.9 - Anxiety disorder, unspecified (ICD-10) COVID-19 ?U07.1 - COVID-19 (ICD-10) Sleep apnea ?G47.30 - Sleep apnea, unspecified (ICD-10) Asthma ?J45.909 - Unspecified asthma, uncomplicated (ICD-10) Syncope and collapse ?R55 - Syncope and collapse (ICD-10) Request for sterilization ?Z30.2 - Encounter for sterilization (ICD-10) Pelvic pain ?R10.2 - Pelvic and perineal pain (ICD-10) Abnormal uterine bleeding ?N93.9 - Abnormal uterine and vaginal bleeding, unspecified (ICD-10) Menorrhagia ?N92.0 - Excessive and frequent menstruation with regular cycle (ICD-10) Kidney stones ?N20.0 - Calculus of kidney (ICD-10) Peptic ulcer ?K27.9 - Peptic ulcer, site unspecified, unspecified as acute or chronic, without hemorrhage or perforation (ICD-10) GERD (gastroesophageal reflux disease) ?K21.9 - Gastro-esophageal reflux disease without esophagitis (ICD-10) Heart murmur ?R01.1 - Cardiac murmur, unspecified (ICD-10) Hypertension ?I10 - Essential (primary) hypertension (ICD-10) Prediabetes ?R73.03 - Prediabetes (ICD-10) 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) Delayed recovery from anesthesia Surgical History (Updated 07/09/24 @ 14:44 by Kathy Stahl NP) H/O radiofrequency ablation (RFA) of nerve of lumbar spine ?Z98.890 - Other specified postprocedural states (ICD-10) History of tonsillectomy ?Z90.89 - Acquired absence of other organs (ICD-10) History of gastric bypass (11/28/22) ?Z98.84 - Bariatric surgery status (ICD-10) Family History (Updated 07/09/24 @ 14:44 by Kathy Stahl NP) Other Cancer Family history of aneurysm Family history of diabetes mellitus Family history of heart disease Family history of hypertension Family history of myocardial infarction Family history of seizures Family history of stroke Social History (Updated 07/09/24 @ 14:32 by Kathy Stahl NP) Within the past year, how often did you have a drink containing alcohol: never Score interpretation: A score less than 3 is consistent with normal alcohol consumption. 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 General: The patient appears, resting on cart. Skin: Warm, dry, no pallor noted. Head: Normocephalic, atraumatic Neck: Supple, trachea mid-line, no tenderness, no lymphadenopathy Eye: Pupils are equal, round and reactive to light, EOMI Ears, Nose, Mouth, and Throat: External exam unremarkable moist mucous membranes. Cardiovascular: Regular Rate and Rhythm Respiratory: Patient is in no distress, no accessory muscle use, lungs are clear to auscultation, no wheezing, rales or rhonchi. Chest Wall: no tenderness Back: non-tender, no CVA tenderness Musculoskeletal: normal ROM, no tenderness, no swelling GI: Normal bowel sounds, dependent bruising noted on the abdomen, portal incisions appear well-healing with no erythema discharge or drainage. Prominent mid periumbilical area going into the left mid abdomen, firm on palpation concerning for a periumbilical hernia compartments of the abdomen are soft with deep palpation but tenderness is appreciated. No rebound or rigidity. Neurological: A&O x4 Psychiatric: Cooperative Constitutional Vital Signs, click to edit/add: Last Vital Signs Temp 99.1 F 07/24/24 13:28 Pulse 66 07/24/24 13:28 Resp 18 07/24/24 13:28 BP 138/90 07/24/24 13:28 Pulse Ox 100 07/24/24 13:28 O2 Del Method Room Air 07/24/24 13:28 Course Vital Signs Vital signs: Vital Signs Temperature 99.1 F 07/24/24 13:28 Pulse Rate 66 07/24/24 13:28 Respiratory Rate 18 07/24/24 13:28 Blood Pressure 138/90 07/24/24 13:28 Pulse Oximetry 100 07/24/24 13:28 Oxygen Delivery Method Room Air 07/24/24 13:28 Temperature 99.1 F 07/24/24 13:28 Pulse Rate 66 07/24/24 13:28 Respiratory Rate 18 07/24/24 13:28 Blood Pressure 138/90 07/24/24 13:28 Pulse Oximetry 100 07/24/24 13:28 Oxygen Delivery Method Room Air 07/24/24 13:28 Medical Decision Making MDM Narrative Medical decision making narrative: Patient presents with clinical history concerning for periumbilical hernia. She has not had any vomiting. She has been slow to pass stools taking multiple bowel regimens and admits to issues with constipation since starting a high- protein diet following her Charisse-en-Y procedure. She denies fever or chills but has noticed increased growth in size mid abdomen Around her umbilicus. Patient declined any pain medications. She was agreeable for attempt at manual reduction at the bedside. Patient was placed in a reverse Trendelenburg position with gentle massage to the periumbilical hernia the area did soften significantly but did not fully reduce patient tolerated this well. Upon sitting up the symptoms almost immediately returned. Patient agreeable to imaging studies with CT and laboratory studies given her length of symptoms. We have kept the patient up-to-date that we are waiting on a CT interpretation. We did contact the imaging facility and they advised it would have been read in the next 20 minutes. I was able to speak with Dr. Almonte at 7 PM and advised of the umbilical pain it appears to be fat-containing but still waiting on a formal interpretation can't r/o seroma. He would recommend reduction if fat and transfer if containing bowel before discharge home if possible he is not in the office next week for evaluation of this. Patient did have her initial surgery done with Dr. Barrett at [facility]. Reviewed CT interpretation, areas favor 2 seromas over fat-containing periumbilical hernia. Patient received 2 mg IV Valium but declined any additional pain medicine. We discussed her case with Dr. Jonathan renner for Dr. Heredia. She recommends the patient take MiraLAX 1 capful for the next 2 weeks with 8 ounces of liquid. Do not strain her abdominal wall and follow-up to Dr. Heredia for observation of resolution. There is no fever no elevated white blood cell count and no clinical signs or symptoms of infection other than pain. She has had the pain for 1 week since symptoms started. Patient admitted to straining for bowel movement before. She does have a large amount of stool throughout her colon. Patient has been taking multiple laxatives, stool softeners and rectal suppositories without relief at home. She is agreeable to a soapsuds enema prior to discharge to help her bowel regimen. The patient is to followup with Dr. Heredia in next 2-3 days or to return to the emergency department should any of the signs or symptoms worsen or new symptoms develop. Patient had questions answered. The patient agrees with the following Diagnosis and Treatment plan and the patient will be discharged home. Lab Data Labs: Lab Results 07/24/24 Range/Units 15:29 WBC 8.1 (4.0-11.0) 10^3/uL RBC 3.96 L (4.20-5.40) 10^6/uL Hgb 11.6 L (12.0-16.0) g/dL Hct 35.7 L (36.0-48.0) % MCV 90.2 (81.0-99.0) fL MCH 29.3 (26.7-34.0) pg MCHC 32.5 (29.9-35.2) g/dL RDW 12.8 (11.0-15.0) % Plt Count 379 (150-450) 10^3/uL MPV 9.7 (9.5-13.5) fL Neut % (Auto) 65.0 (43.0-75.0) % Lymph % (Auto) 27.8 (20.5-60.0) % Mcmullen % (Auto) 5.5 (1.7-12.0) % Eos % (Auto) 1.1 (0.9-7.0) % Baso % (Auto) 0.4 (0.2-2.0) % Neut # (Auto) 5.3 (1.4-6.5) 10^3/uL Lymph # (Auto) 2.3 (1.2-3.8) 10^3/uL Mcmullen # (Auto) 0.5 (0.3-0.8) 10^3/uL Eos # (Auto) 0.1 (0.0-0.7) 10^3/uL Baso # (Auto) 0.0 (0.0-0.1) 10^3/uL Abs Immat Gran (auto) 0.02 (0.00-0.03) 10^3/uL Imm/Tot Granulo (auto) 0.2 (0.0-0.5) % PT 10.8 (9.0-11.6) sec INR 1.02 APTT 27.7 (22.3-36.2) sec Sodium 140 (136-145) mmol/L Potassium 3.7 (3.5-5.1) mmol/L Chloride 103 (98-107) mmol/L Carbon Dioxide 25.8 (21.0-32.0) mmol/L Anion Gap 14.9 BUN 10.0 (7.0-18.0) mg/dL Creatinine 0.73 (0.55-1.02) mg/dL Est GFR ( Amer) >60 (>=60 mL/min/1.73m^2) Est GFR (Non-Af Amer) >60 (>=60 mL/min/1.73m^2) BUN/Creatinine Ratio 13.7 Glucose 91 (74-106) mg/dL Lactate 1.3 (0.4-2.0) mmol/L Calcium 8.9 (8.5-10.1) mg/dL Total Bilirubin 0.4 (0.2-1.0) mg/dL AST 36 (15-37) U/L ALT 97 H (14-59) U/L Alkaline Phosphatase 114 (46-116) U/L Total Protein 7.7 (6.4-8.2) g/dL Albumin 3.9 (3.4-5.0) g/dL Globulin 3.8 g/dL Albumin/Globulin Ratio 1.0 Lipase 27.0 (16.0-77.0) U/L Imaging Data CT scan - abdomen: Radiologist's impression: ITS Impressions Abdomen/Pelvis CT 07/24/24 15:16 IMPRESSION: Approximately 4.5 x 2.8 x 2.1 cm (CC x AP x ML) soft tissue density is seen in the periumbilical subcutaneous tissues of the anterior abdominal wall with extension to the skin, which may represent a postsurgical seroma/hematoma. Additionally, an approximately 3.5 x 4.3 x 1.1 cm (CC x ML x AP) low density is seen in the deep subcutaneous tissues of the infraumbilical anterior abdominal wall, which may also represent a postsurgical seroma versus hematoma. Although not favored, early subcutaneous abscesses cannot be excluded. Distended gallbladder is seen. No calcified gallstone is visualized. Prominent endometrial low density. Please correlate clinically. Probable right ovarian cyst. Electronically authenticated by: EDWIN GAMA Date: 07/24/2024 19:32 Chest X-Ray 07/24/24 15:16 IMPRESSION: 1. No acute cardiopulmonary process. Electronically authenticated by: RUSTY MORALES Date: 07/24/2024 15:47 Discharge Plan Discharge Chief Complaint: Abdominal Pain Clinical Impression: Seroma after procedure, Constipation, Abdominal pain Patient Disposition: Home, Self-Care Time of Disposition Decision: 19:51 Condition: Good Prescriptions / Home Meds: No Action calcium citrate-vitamin D3 200 mg-6.25 mcg (250 unit) tablet 2 tab PO QID cyanocobalamin (vitamin B-12) 1,000 mcg/mL solution 1,000 mcg IM .qmonth Vitamin Plus Low Iron 27 mg iron- 1 mg tablet 1 tab PO DAILY zinc gluconate 50 mg tablet 50 mg PO DAILY omeprazole 20 mg capsule,delayed release(DR/EC) 20 mg PO BID PRN (Reason: heartburn) ibuprofen 800 mg tablet 800 mg PO Q8H PRN (Reason: pain) 14 Days Qty: 40 0RF hydrocodone-acetaminophen 5-325 mg tablet 1 tab PO Q4H PRN (Reason: pain) 4 Days Qty: 16 0RF Print Language: Emirati Instructions: Constipation (ED), Seroma (DC) Additional Instructions: Take 1 capful of MiraLAX with 8 ounces of water daily for the next 2 weeks. Referrals: Kirby Heredia DO [Physician] - As soon as possible Rick Almonte DO [Physician] - As needed
[2024-07-24 15:41] LABS: Basophils Percent Auto 0.4 % (0.2-2.0); Eosinophils Absolute Auto 0.1 10^3/uL (0.0-0.7); Eosinophils Percent Auto 1.1 % (0.9-7.0); Hematocrit 35.7 % (36.0-48.0); Hemoglobin 11.6 g/dL (12.0-16.0); Immature Granulocytes Abs Auto 0.02 10^3/uL (0.00-0.03); Immature Granulocytes Pct Auto 0.2 % (0.0-0.5); Lymphocytes Absolute Auto 2.3 10^3/uL (1.2-3.8); Lymphocytes Percent Auto 27.8 % (20.5-60.0); Mean Corpuscular HGB Conc 32.5 g/dL (29.9-35.2); Mean Corpuscular Hemoglobin 29.3 pg (26.7-34.0); Mean Corpuscular Volume 90.2 fL (81.0-99.0); Mean Platelet Volume 9.7 fL (9.5-13.5); Monocytes Absolute Auto 0.5 10^3/uL (0.3-0.8); Monocytes Percent Auto 5.5 % (1.7-12.0); Neutrophils Absolute Auto 5.3 10^3/uL (1.4-6.5); Platelet Count 379 10^3/uL (150-450); Red Blood Count 3.96 10^6/uL (4.20-5.40); Red Cell Distribution Width 12.8 % (11.0-15.0); White Blood Count 8.1 10^3/uL (4.0-11.0)
[2024-07-24] MEDS: ONDANSETRON PF 4 MG/2 ML VIAL IV (15:44)
[2024-07-24 15:58] LABS: Alanine Aminotransferase 97 U/L (14-59); Albumin Level 3.9 g/dL (3.4-5.0); Alkaline Phosphatase 114 U/L (46-116); Anion Gap 14.9; Aspartate Amino Transferase 36 U/L (15-37); BUN Creatinine Ratio 13.7; Bilirubin Total 0.4 mg/dL (0.2-1.0); Calcium 8.9 mg/dL (8.5-10.1); Carbon Dioxide 25.8 mmol/L (21.0-32.0); Chloride 103 mmol/L (98-107); Estimated GFR (African America >60 (>=60 mL/min/1.73m^2); Estimated GFR (Non-African Ame >60 (>=60 mL/min/1.73m^2); Globulin 3.8 g/dL; Glucose 91 mg/dL (74-106); Potassium 3.7 mmol/L (3.5-5.1); Sodium 140 mmol/L (136-145); Total Protein 7.7 g/dL (6.4-8.2)
[2024-07-24 16:01] LABS: Lactate/Lactic Acid 1.3 mmol/L (0.4-2.0)
[2024-07-24 16:02] LABS: INR 1.02; Partial Thromboplastin Time 27.7 sec (22.3-36.2); Prothrombin Time 10.8 sec (9.0-11.6)
--- NOTE | 2024-07-24 18:52 | PC.NURSE ---
1600 - pt had tubal this week with Giovanna. was having complicated BM yesterday x2, and pt states a bulge from under her umbilicus kept getting bigger whenever she would have BM. h/o gastric bypass. some soreness but also nauseated.
--- NOTE | 2024-07-24 19:00 | PC.NURSE ---
gave report to RONAL Olmos.
[2024-07-24] MEDS: DIAZEPAM 10 MG/2 ML SYRINGE 2 MG IV (19:23)
--- NOTE | 2024-07-24 19:25 | PC.NURSE ---
2 mg of valium given IVP. Pt did state this dose caused her to feel anxious because she did not care for the drowsy feeling.
--- NOTE | 2024-07-24 19:32 | PC.NURSE ---
Pt states that she feels much better. She is awake A & O x 4. Thierry HIGH aware.
--- NOTE | 2024-07-24 20:15 | PC.NURSE ---
Pt tolerating enema adminstration well. A total of 350 ml instilled. Pt on L side holding sse.
--- NOTE | 2024-07-24 20:47 | PC.NURSE ---
Pt had a moderate amount of brown stool.
== END 2024-07-24 21:09 | disposition home or self-care (01) ==
PROVIDERS: Personal Emergency Response Attendant; Emergency Provider Emergency Medicine
DX: N99.842 Postprocedural seroma of a genitourinary system organ or structure following a genitourinary system procedure (principal); K59.00 Constipation, unspecified; Z98.51 Tubal ligation status; Z98.84 Bariatric surgery status; Z87.891 Personal history of nicotine dependence; R10.9 Unspecified abdominal pain
CPT/HCPCS: 36415; 71045; 74177; 80053; 83605; 83690; 85025; 85610; 85730; 96374; 96375; 99285; J2405; J3360; Q9966; Q9967

== ENCOUNTER 2025-07-12 15:48 | Outpatient (OUT) | payer OTHER, SELFPAY ==
--- OUTSIDE RECORDS SUMMARY | 2025-07-12 04:21 | XMS_ITS | Continuity of Care Document ---
Author Organization [facility] Address [address] [place] [address] Phone Care Team Providers Care Rivet Machine Operator Name Role Phone Vijaya Pinto APRN Primary Care Provider Ney Malhotra MD Attending Provider Amy Alfonso APRN Attending Provider Care Teams Patient Care Team Team Status: Active Member Role/Relationship Status Dates Vijaya Pinto APRN ED MANAGER-C Primary Care Provider Active Visit Care Team Team Status: Inactive Member Role/Relationship Status Dates Vijaya Pinto APRN ED MANAGER-C Primary Care Provider Active Start: May 032024 End: May 20, 2025Rosy Diaz ProviderActiveStart: May 20, 2025 End: May 20, 2025 Patient Care Team Team Status: Active Member Role/Relationship Status Dates Vijaya Pinto APRN ED MANAGER-C Primary Care Provider Active Start: June Rosy Diaz ProviderActiveStart: June 28, 2025 Visit Care Team Team Status: Inactive Member Role/Relationship Status Dates Vijaya Pinto APRN ED MANAGER-C Primary Care Provider Active Start: June End: June 28Fox William ProviderActiveStart: June 28, 2025 End: June 28, 2025 Visit Care Team Team Status: Inactive Member Role/Relationship Status Dates Vijaya Pinto APRN ED MANAGER-C Primary Care Provider Active Start: June End: June 28omas Rosy Malhotra ProviderActiveStart: June 28, 2025 End: June 28, 2025 Patient Care Team Team Status: Inactive Member Role/Relationship Status Dates Vijaya Pinto APRN ED MANAGER-C Primary Care Provider Active Start: July 122024 End: July 12omas Rosy Malhotra ProviderActiveStart: July 12, 2025 End: July 12, 2025 Chief Complaint and Reason for Visit Chief Complaint Admit Date RECHECK BACK PAIN May 20, 2025 9:33am Earache, sore throat 1of4 June 28, 2025 2:40pm MARY LUMBAR FACET RFA L3 L4 L5 /VW Octo 2024 3:10pm F/U MARY LUMBAR FACET RFA July 12, 2025 8:45am Reason for Visit Admit Date Arthritis of lumbosacral spine May 20, 2025 9:33am Chronic pain May 20, 2025 9:33am Right hip pain May 20, 2025 9:33am Sinusitis, acute, maxillary June 2:40pm Arthritis of lumbosacral spine July 12, 2025 8:45am Chronic pain July 12, 2025 8:45am Right hip pain July 12, 2025 8:45am Allergies, Adverse Reactions, Alerts Allergen Type Severity Reaction Last Updated Verified Status Comments penicillin G Allergy Unknown Hives July 8:49am Yes Active sulfacetamideAllergyUnknownHivesJuly 12, 2025 8:49amYesActivesulfurAllergy UnknownHivesJuly 12, 2025 8:49amYesActiveNSAIDS (Non-Steroidal Anti-InflammaAdverse ReactionUnknownUnknown ReactionJuly 12, 2025 8:49am YesActiveNo Oral NSAIDS, Gastric Bypass Social History Smoking Status Status Start Date End Date Date of Observa tion Never smoked tobacco (finding) November 07, 2021 9:28am Observation Status Observation Response Date of Response Legal Sex [facility] ([facility]) [facility] Family [facility] Relationship Condition Age at Onset Recorded Date/T rafael father Diabetes mellitus Unknown Heart diseaseUnknownmotherHeart diseaseUnknownSarcomaUnknownfatherHeart disease UnknownHypertensionUnknownDiabetes mellitusUnknownmotherHypertensionUnknown Problems Active Problems Problem Diagnosis/Recorded Date Onset Date Stat us Other spondylosis with radic ulopathy, lumbar region November 12, 2023 11:58am Unknown Active Sinusitis, acute, maxillary June 28, 2025 2:51pm Unknown Active Chronic pain November 12, 2023 11:58am Unknown Act mikie Arthritis of lumbosacral spine November 12, 2023 11:57a m Unknown Active Medications Medication Status Dose Units Route Directions Qty Days Refills S tart Date Stop Date End Date Reason(s) Instructions Adherence Wzlokqdg-Drb-Si-Fa () 1 mg Tablet Discontinued 1 TAB PO Daily April 16, 2022 11:00pmOct2024 1:42pmPregabalin 75 mg capsule Lnxoylzbqphd93QYQMXnlvl dailyAupres[facility] 2021 11:00pm[facility] 2023 10:30am Metformin 500 mg upflopZwpwbwpsoere214TVKJXh DirectedMarch 2021 12:00amJuly 2021 6:22amBupropion Hcl 150 mg tablet sustained-release 12 hrDiscontinued 150MGPODaWay[facility] 2021 12:00am[facility] 2021 9:33amNaproxen 375 mg tablet Zhjwfdfkwuck493WUBHPz DirectedMarch 2021 12:00amMaun[facility] 2023 10:30am Citalopram 40 mg nyxyhbLjrxsfbytbrj90GVCHIruieOokaq 2021 12:00[facility] 2023 10:30amAtenolol 25 mg qccdltBlptwrfiyvbj65TVLAXcihcOokwd 2021 12:00am November 11, 2023 10:30amOmeprazole 20 mg capsule,delayed release(DR/EC) Irncylwzwhhx98ZUMCGy [facility] 2021 12:00amMaun[facility] 2023 10:30am Topiramate 100 mg pwjxwcEbzimuuiytib12HMNCXy [facility] 2021 12:00am November 11, 2023 10:32amSemaglutide (Ozempic) 0.25 mg or 0.5 mg(2 mg/1.5 mL) pen injectorDiscontinued0.25MGSUBCUTAs DirectedMar 2021 12:00amJuly 2021 6:22amUbrogepant (Ubrelvy) 50 mg eilqicBulfmmejnqcl63EAUKEt Directed as needed for Migraine HeadacheGerman [facility] 2021 12:00amMarch 2023 10:32am Cyanocobalamin (Vitamin B-12) 1,000 mcg/mL solutionActiveGIMary [facility] 2023 11:00pmComplies with drug therapyTizanidine 4 mg tabletDiscontinuedMGPOMar 2023 11:00pmMarch 2023 9:25amDoxycycline Hyclate 100 mg capsule Qytaohknhimu870MFIKQiwna hbjxk50347Adclg2023 11:00pmMarch 2023 8:16amFluticasone Propionate 50 mcg/actuation spray,eaygyqotlnYunhmdaauudo6DOIYP XOYFHMEPGIEhzci626Gxmuu 2023 11:00pmSeptember 2024 8:37amadminister into each nostrilMethylprednisolone (Medrol (Michael)) 4 mg tablets,dose pack Blrekevlqxgy5ASzsb package sbjpownyjx49Tiglx 10th, 2024 11:00pm[facility] 2023 8:16amPO PER PKG DIR for 6 daysDocusate Sodium 100 mg capsuleActiveMGPOSeptember 2024 11:00pmComplies with drug therapyPolyethylene Glycol 3350 (Clearlax) 17 gram/dose jdpcbxRrvqdp28YMJBNhmfnOlbwatert 2024 11:00pmComplies with drug therapyLactulose 10 gram/15 mL solutionActivePOSeptember 2024 11:00pm Complies with drug therapyCalcium Citrate-Vitamin D3 200 mg-6.25 mcg (250 unit) qqohjnQvppsj8PXKKNEjdfm times dailySeptember 2024 11:00pmComplies with drug therapyLinaclotide (Linzess) 290 mcg capsuleActiveMCGPOSeptember 2024 11:00pmComplies with drug therapyTizanidine 4 mg onopfrMdhlubnleacw4XYLCDjhzi daily as needed for muscle odwnfjdarj00796Kfmmkwmzg 18th, 2025 9:26amNovember 2024 9:14amTizanidine 4 mg rkvnshBmobqb0GDUFRlzdy daily as needed for muscle owxxxtovci70148Zisyrmho 10th, 2025 9:14amComplies with drug therapy Pregabalin 50 mg capsuleDiscontinuedMGPOGerman Hospital 2023 11:00pmSept2024 8:37amAcetaminophen 650 mg tablet extended releaseDiscontinuedMGPOGerman Hospital 2023 11:00pmSept2024 8:37amTizanidine 4 mg tabletDiscontinued4 MGPOTwice daily as needed for muscle rsaitihgfe69231Gvcpu 2023 9:24am May 20, 2025 8:38amZinc Gluconate 50 mg tabletActiveMGPOMty 2023 11:00pmComplies with drug therapySyringe With Needle (Bd Luer-Humberto Syringe) 3 mL 25 x 1 1/2 syringeActiveML.ROUTE.BDUUMAFSD429Ojsyerq 2024 11:00pmAs directedPnv,Calcium 58-Rjet-Twcxh Acid (M-Troy Plus) 27 mg iron- 1 mg tablet ActiveTABPOOctbluegrass community hospital 2024 11:00pmComplies with drug therapyAzithromycin 250 mg gpbvomMwflgnzqriey8QY.EBMATNV75Amurabj 2024 11:00pmJuly 12, 2025 8:49amFor 250 mg dose pack: take 500 mg today (day 1), then 250 mg for 4 days (days 2-5) PO Vital Signs Vital Reading Result Reference Range Collection Date/Time Height 65 [in_i] June 28, 2025 2:75onHnuhpg63.38 kgOctbluegrass community hospital 2024 2:14pmBody Temperature 97.7 [degF]97.6-99.0[facility] 2024 2:14pmHeart Rate72 /tah01-107Yeqvfmi 2024 2:14pmRespiratory rate19 /myz58-63Jkwjsvh 2024 2:14pmOxygen saturation by Pulse hhooduus08 %95-100[facility] 2024 2:14pmBP Bppdrhgl287 mm[Hg]100-140Octbluegrass community hospital 2024 2:14pmBP Rvixaqyyi66 mm[Hg]60-100Octbluegrass community hospital 2024 2:14pmBMI (Body Mass Index)24.7 kg/g4Jnayjrq 2024 2:14pm Advance Directives Advance Directive Response Recorded Date/ Time Advance Directives No September 18, 2021 7:30am Insurance Providers Guarantor Michelle Han Megan Address [address] [address]Gfntlja Info.Home Phone: Payer Group Member ID Coverage Type Subscriber Relationship to Subscriber Effective Date Expiration Date [facility] [id number] [place] Id: [id number] Jasiel Suazo [facility] [address] Home Phone: Encounters Encounter Location(s) Arrival/Admit Date Discharge/Departure Date Discharge/Departure Disposition Provider(s) Departed Physician/ Provider Office Visit -[facility] May 20, 2025 9:33am May 20, 2025 10:27am Discharged to home care or self care (routine discharge) Pradeep Diaz MD Non-patient / Non-visit -[facility] 2024 12:45pm Pradeep Diaz MDDeparted Physician/Provider Office Visit-[facility] 2024 2:40pmOctbluegrass community hospital 2024 3:53pmDischarged to home care or self care (routine discharge)Jeyson Naqvi APRNDeparted Physician/Provider Office Visit-[facility] 2024 3:10pmOctbluegrass community hospital 2024 11:59pmDischarged to home care or self care (routine discharge)Pradeep Diaz MDDeparted Physician/Provider Office Visit-[facility] BCNovember 2024 8:45amNovember 2024 9:19amDischarged to home care or self care (routine discharge)Pradeep Diaz MD Recent Diagnosis Onset Date Admit Date Arthritis of lumbosacral spine Unknown S eptember 2024 9:33am Chronic pain Unknown May 20, 2025 9:33am Right hip pain Unknown May 20, 2025 9:33am Sinusitis, acute, maxillary Unknown Octo 2024 2:40pm Arthritis of lumbosacral spine Unknown N ov2024 8:45am Chronic pain Unknown July 12 8:45am Right hip pain Unknown July 12 8:45am Assessments Diagnosis Onset Date Resolution Status Admit Date Arthritis of lumbosacral spine acuteSept2024 9:33amChronic painacuteSept2024 9:33am Right hip painnoneactiveSept2024 9:33amSinusitis, acute, maxillary acuteOctober 2024 2:40pmArthritis of lumbosacral spineacuteJuly 12, 2025 8:45amChronic painacuteNov2024 8:45amRight hip painnoneactive July 12, 2025 8:45am Plan of Treatment Author Ney Malhotra [facility]2024 9:32amWe discussed treatment options for the patient's persistent low lumbar pain. She shows notable pain consistent with degenerative changes of the lumbar spine. We discussed the possible benefit of treatment of the facet region for axial back pain. Patient is a reasonable candidate for a repeat bilateral lumbar facet radiofrequency nerve ablations given how well she did in the past. Risks and benefits of procedure explained to patient; patient verbalizes understanding. Additionally, we will refill her tizanidine, she notes considerable benefit used sparingly. Anatomy of spine discussed in detail with patient in regard to patients condition. Above note written by AMINAH Stewart, Bone Tender. Edited and approved by Dr. Ney Malhotra MD.? Author Barb Foster [facility]2024 9:13amWe discussed that the patient may continue to benefit from this procedure over the next few weeks. We will allow the ablation more time to work. Additionally, we will refill her tizanidine, she notes considerable benefit used sparingly and we will order formal physical therapy for the patient. PT order given to patient. Anatomy of spine discussed in detail with patient in regard to patients condition. Above note written by Barb Foster MA, Bone Tender. Edited and approved by Dr. Ney Malhotra MD.? Author Amy Alfonso [facility] CenterAuthoredOctober 2024 2:53pmPatient appears alert, nontoxic. She is afebrile here. Vitals normal. Respirations are even unlabored at 19. She is satting at 97% on room air. Declined any viral testing. Symptoms and exam consistent with an acute maxillary sinusitis, most likely viral given the length of symptoms and lack of fever. Patient states she does have a history of frequent sinus infections in the past. Is requesting an antibiotic to garbage pick up man if symptoms worsen. I am agreeable to sending over a Z-Michael. However she is to hold off on taking it unless she develops any fevers, chills, worsening symptoms around a 7-10. Patient is agreeable. Rest, push fluids, take chup-pqa-kdwlags Tylenol/Motrin as needed for any fever or discomfort. May use zfap-xrk-bxifjvf cough syrup, cough drops, tea with honey for the cough. May use ilzo-oye-arasncp nasal saline nasal spray twice a day. Follow-up with primary care provider in 3 to 5 days. Patient is to go to the ER for any fever not responding to Tylenol or Motrin, worsening cough, shortness of breath, difficulty breathing, chest pain, palpitations, inability to keep down food or fluids, lethargy. Patient verbalizes understanding is agreeable to the plan of care at this time. Future Tests Future scheduled test information is unavailable Pending Tests Pending diagnostic test information is unavailable Future Visits Future appointment information is unavailable Future Procedures Future procedure information is unavailable Future Medications Future medication information is unavailable Patient Instructions Patient instructions are unavailable
--- OUTSIDE RECORDS SUMMARY | 2025-07-12 14:20 | XMS_ITS | Encounter Summary ---
Author Organization [facility] Address [address] [place] [address] Care Team Providers Care Stapling Machine Operator Name Role Phone Nita Oneil MD Primary Care Provider [phone] Reason for Visit * ReasonCommentsWell Women Visit Encounter Details DateTypeDepartmentCare Team (Latest Contact Info)Geiktdcyhvf27/10/2025 2:20 PM ESTProcedure Visit [facility] [address] [place] [address] Kirby Heredia DO [address] [place] [address] Well woman exam with routine gynecological exam; Sexually transmitted disease exposure Social History Tobacco UseTypesPacks/DayYears UsedDateSmoking Tobacco: FormerCigarettes Smokeless Tobacco: NeverAlcohol UseStandard Drinks/WeekCommentsNot Currently0 (1 standard drink = 0.6 oz pure alcohol)Caffeine: 1-2 cups/dayCommentsNoSex and Gender InformationValueDate RecordedSex Assigned at BirthNot on fileLegal OjgDaesuv33/15/2023 7:10 PM EDTGender IdentityNot on fileSexual OrientationNot on filedocumented as of this encounter Last Filed Vital Signs Vital SignReadingTime TakenCommentsBlood Cwibsdfa745/8207/12/2025 2:36 PM EST Pulse--Temperature--Respiratory Rate--Oxygen Saturation--Inhaled Oxygen Concentration--Wditfp49.9 kg (140 lb 12.8 oz)07/12/2025 2:36 PM ESTHeight--Body Mass Index23.0707/22/2024 11:37 AM ESTdocumented in this encounter Plan of Treatment DateTypeDepartmentCare Team (Latest Contact Info)Weblcyvwube51/17/2025 2:20 PM ESTConsult NOMJack [facility] [address] [place] [address] [place] [id number] Kirby Heredia, DO [address] [place] [address] 08/01/2026 8:30 AM ESTProcedure Visit [facility] [address] [place] [phone] Kirby Heredia, DO [address] [place] [address] NameTypePriorityAssociated DiagnosesOrder SchedulePap SmearPathology and CytologyRoutine Well woman exam with routine gynecological exam Ordered: 07/12/2025HPV DNA probe, amplifiedMicrobiologyRoutine Well woman exam with routine gynecological exam Ordered: 07/12/2025SURESWAB(R) ADVANCED VAGINITIS PLUS, TMAPathology and CytologyRoutine Sexually transmitted disease exposure Ordered: 07/12/2025HLAMYDIA TRACHOMATIS (GENITO/STI)LabRoutine Sexually transmitted disease exposure Ordered: 07/12/2025Neisseria gonorrhea DNA probe, directLabRoutine Sexually transmitted disease exposure Ordered: 07/12/2025HIV-1 and HIV-2 antibodiesLabRoutine Sexually transmitted disease exposure Ordered: 07/12/2025Hepatitis B surface antigenLabRoutine Sexually transmitted disease exposure Ordered: 07/12/2025RPRLabRoutine Sexually transmitted disease exposure Ordered: 07/12/2025HEPATITIS C AB W/RFL RNS, PCR W/RFL GENOTYPE,LIPALabRoutine Sexually transmitted disease exposure Expected: 07/12/2025 (Approximate), Expires: 07/12/2026documented as of this encounter Visit Diagnoses Diagnosis Well woman exam with routine gynecological exam Routine gynecological examination Sexually transmitted disease exposure Contact with or exposure to venereal diseases documented in this encounter Care Teams Team MemberRelationshipSpecialtyStart DateEnd Date Nita Oneil MD PCP - GeneralFamily Xzdqjrvy02/20/24documented as of this encounter
--- OUTSIDE RECORDS SUMMARY | 2025-07-12 15:56 | XMS_ITS | Encounter Summary ---
Author Organization [facility] Address [address] [place] [address] Care Team Providers Care Deputy Juvenile Officer Name Role Phone Nita Oneil MD Primary Care Provider Encounter Details DateTypeDepartmentCare Team (Latest Contact Info)Riairghhcfd31/08/2024Clinisync Result Encounter [facility] External Department Unsolicited Talia Heredia, DO [address] [facility] [address] Jessica [place]afa, [facility]11 Social History Tobacco UseTypesPacks/DayYears UsedDateSmoking Tobacco: FormerCigarettes Smokeless Tobacco: NeverAlcohol UseStandard Drinks/WeekCommentsNot Currently0 (1 standard drink = 0.6 oz pure alcohol)Caffeine: 1-2 cups/dayCommentsNoSex and Gender InformationValueDate RecordedSex Assigned at BirthNot on fileLegal RryIwyxfn10/15/2023 7:10 PM EDTGender IdentityNot on fileSexual OrientationNot on filedocumented as of this encounter Plan of Treatment DateTypeDepartmentCare Team (Latest Contact Info)Kotpiafllcr78/17/2025 2:20 PM ESTConsult NOMJack YOUNG [address] [facility] [place] [address] Talia Heredia DO [address], [place] [address] 08/01/2026 8:30 AM ESTProcedure Visit NOMJack YOUNG 102 [facility] [place] [address] Talia Heredia, DO 102 [facility] [place] [address] documented as of this encounter Procedures Procedure NamePriorityDate/TimeAssociated DiagnosisCommentsUS PELVIS W/ NAAXKIZPSNCT15/08/2024 6:32 AM EST documented in this encounter Results * US PELVIS W/ TRANSVAGINAL (07/10/2024 6:32 AM EST)Anatomical RegionLaterality ModalityOtherSpecimen (Source)Anatomical Location / LateralityCollection Method / VolumeCollection TimeReceived Time07/10/2024 6:32 AM EST Narrative 07/10/2024 6:35 AM EST [facility] ?[address] ? [place] [address] ? Ultrasound Report ? Signed ? Patient: MICHELLE CARTER ?MR#: [id number] ?? : 1985 ?Acct:[id number] ?? Age/Sex: 39 / F ?ADM Date: 07/09/24 ?? Loc: [facility] ? Attending Dr: Talia Heredia D.O. ? Ordering Physician: Talia Heredia D.O. ?? Date of Service: 07/09/24 ?? Procedure(s): US pelvis w/ transvaginal ?? Accession Number(s): [id number] ? cc: Talia Heredia D.O.; Physician,Non-Staff M.D. ? [facility] ? [address] ? [place] [address] ? Patient Name: ?? MICHELLE CARTER ? MRN: [id number] ? date: 1985 ?Sex: F ?? Assigned Patient Location: [facility] ?? Current Patient Location: ? Accession/Order Number: [id number] ?? Exam Date: 07/09/2024 ??09:32 ?Report Date: 07/10/2024 ??06:32 ? At the request of: ?? TALIA ??GIOVANNA ? Procedure: ??US pelvis w/ transvaginal ? EXAMINATION: US pelvis w/ transvaginal ? HISTORY: MENORRHEA, PELVIC PAIN ? COMPARISON: Ultrasound pelvis 07/18/2023 ? TECHNIQUE: Transabdominal and/or transvaginal sonographic examination was ?? performed as indicated by examination type. ? FINDINGS: ?? UTERUS: Heterogeneous echotexture without appreciable mass. Nabothian cysts ?? within cervix. Uterus size: 9.9 x 4.3 x 5.7 cm ?? ENDOMETRIUM: Normal homogeneous appearance. Endometrial thickness: 4 mm ? RIGHT OVARY: Normal size and appearance. Duplex Doppler demonstrates normal ?? waveform and flow; resistive index 0.6. Ovary size: 4.8 x 2.9 x 4.1 cm ? LEFT OVARY: Contains a prominent follicle/cyst and a nonspecific slightly ?? irregular hyperechoic structure 1.2 x 0.8 x 0.7 cm. No suspicious vascularity. ? Duplex Doppler demonstrates normal waveform and flow; resistive index 0.5. ?? Ovary size: 3.5 x 2.1 x 2.5 cm ? CUL-DE-SAC: Unremarkable. No significant free fluid. ?? BLADDER: Unremarkable. ?? OTHER: None. ? US/US pelvis w/ transvaginal ?? IMPRESSION: ? 1. Heterogeneous uterine endometrium and incidental nabothian cysts within ?? cervix. ?? 2. Prominent follicle and adjacent irregular hyperechoic structure, possibly a ? collapsing/collapsed cyst. Consider follow-up ultrasound evaluation in 6 weeks ? to document clearing. ? Electronically authenticated by: WILLEM ??CARMEN ?? Date: 07/10/2024 ??06:32 ? Dictated By: ?Willem Barroso M.D. ? Signed By: ?07/10/24 0635 ? DD/ 0632 ? TD/TT: ? Kettle Operator Head: Procedure Note Radiology, Radiologist, MD - 07/10/2024 [place] [address] Ultrasound Report Signed Patient: MICHELLE CARTER LMR#: [id number] : 1985Acct:[id number] Age/Sex: 39 / FADM Date: 07/09/24 Loc: [facility] Attending Dr: Talia Heredia D.O. Ordering Physician: Talia Heredia D.O. Date of Service: 07/09/24 Procedure(s): US pelvis w/ transvaginal Accession Number(s): [id number] cc: Talia Heredia D.O.; Physician,Non-Staff [place] [id number] Patient Name: MICHELLE CARTER MRN: [id number] date: 1985 Sex: F Assigned Patient Location: [facility] Current Patient Location: Accession/Order Number: [id number] Exam Date: 07/09/2024 09:32 Report Date: 07/10/2024 06:32 At the request of: TALIA HEREDIA Procedure: US pelvis w/ transvaginal EXAMINATION: US pelvis w/ transvaginal HISTORY: MENORRHEA, PELVIC PAIN COMPARISON: Ultrasound pelvis 07/18/2023 TECHNIQUE: Transabdominal and/or transvaginal sonographic examination was performed as indicated by examination type. FINDINGS: UTERUS: Heterogeneous echotexture without appreciable mass. Nabothiancysts within cervix. Uterus size: 9.9 x 4.3 x 5.7 cm ENDOMETRIUM: Normal homogeneous appearance. Endometrial thickness: 4 mm RIGHT OVARY: Normal size and appearance. Duplex Doppler demonstratesnormal waveform and flow; resistive index 0.6. Ovary size: 4.8 x 2.9 x 4.1 cm LEFT OVARY: Contains a prominent follicle/cyst and a nonspecific slightly irregular hyperechoic structure 1.2 x 0.8 x 0.7 cm. No suspiciousvascularity. Duplex Doppler demonstrates normal waveform and flow; resistive index 0.5. Ovary size: 3.5 x 2.1 x 2.5 cm CUL-DE-SAC: Unremarkable. No significant free fluid. BLADDER: Unremarkable. OTHER: None. US/US pelvis w/ transvaginal IMPRESSION: 1. Heterogeneous uterine endometrium and incidental nabothian cysts within cervix. 2. Prominent follicle and adjacent irregular hyperechoic structure,possibly a collapsing/collapsed cyst. Consider follow-up ultrasound evaluation in 6weeks to document clearing. Electronically authenticated by: WILLEM BARROSO Date: 07/10/2024 06:32 Dictated By: Willem Barroso M.D. Signed By:07/10/2435 DD/ 1 TD/TT: Kettle Operator Head: Authorizing ProviderResult TypeResult StatusCorey Giovanna DOCLINISYNC IMAGINGFinal Result documented in this encounter Visit Diagnoses Not on filedocumented in this encounter Care Teams Team MemberRelationshipSpecialtyStart DateEnd Date Nita Oneil MD PCP - GeneralFamily Vwqggois99/20/24documented as of this encounter
--- OUTSIDE RECORDS SUMMARY | 2025-07-12 15:56 | XMS_ITS | Clinical Summary ---
Author Organization [facility] tem Address [id number] [address] [place] [address] Care Team Providers Care Cat Scanner Operator Name Role Phone KoenigJoann batresNikki APRN-SHIP MANAGER Primary Care Provider Allergies Active AllergyReactionsCriticalityNoted DateCommentsNsaids (Non-Steroidal Anti- Inflammatory Drug)08/20/2024 Gastric Bypass Penicillin GHives,GjvgszniIzwo70/15/2018Sulfa (Sulfonamide Antibiotics)Hives, NbverxzwUxxu62/15/2018 Ophthalmic agents Medications MedicationSigDispense QuantityRefillsLast FilledStart DateEnd DateStatus tiZANidine (ZANAFLEX) 4 mg tablet Take 1 tablet (4 mg total) by mouth as needed for muscle spasms.02/21/2023ctive docusate sodium (COLACE) 100 mg capsule Indications:Constipation, unspecified constipation typeTake 1 capsule (100 mg total) by mouth 2 (two) times a day as needed for constipation. 10 capsule 05/30/2023ctive clindamycin-benzoyl peroxide (BENZACLIN) gel Apply 1 Application topically daily as needed (acne). 25 g ctive omeprazole (PriLOSEC) 40 mg capsule Take 1 capsule (40 mg total) by mouth every morning before breakfast.07/20/2024 Active bisacodyL (DULCOLAX) 10 mg suppository Insert 1 suppository (10 mg total) into the rectum in the morning.07/20/2024 Active calcium citrate-vitamin D3 (CITRACAL PETITES) 200 mg calcium -250 units tablet Indications:Malnutrition following gastrointestinal surgery,Postsurgical malabsorption,History of gastric bypassTake 2 tablets by mouth 3 (three) times a day for 360 days. 540 tablet 505/6Active cyanocobalamin (VITAMIN B-12) 1,000 mcg/mL injection Indications:Malnutrition following gastrointestinal surgery,Postsurgical malabsorption,History of gastric bypassInject 1 mL (1,000 mcg total) into the appropriate muscle every 30 (thirty) days. 3 mL 5Active syringe with needle (BD LUER-PAAYL SYRINGE) 3 mL 25 x 1 1/2 syringe Indications:Malnutrition following gastrointestinal surgery,Postsurgical malabsorption,History of gastric bypassInject 1 SYRG into the appropriate muscle every 30 (thirty) days. 3 each tive zinc gluconate 50 mg tablet Indications:Zinc deficiencyTake 1 tablet (50 mg total) by mouth in the morning. 90 tablet tive atomoxetine (STRATTERA) 40 mg capsule Indications:ADHD (attention deficit hyperactivity disorder), inattentive type Take 1 capsule (40 mg total) by mouth in the morning. 30 capsule 5Active linaCLOtide (LINZESS) 290 mcg capsule Indications:Irritable bowel syndrome with constipationTake 1 capsule (290 mcg total) by mouth in the morning. 90 capsule tive lactulose (CHRONULAC) 10 gram/15 mL solution TAKE 15 ML (10 G TOTAL) BY MOUTH IN THE MORNING AND 15 ML (10 G TOTAL) BEFORE BEDTIME. 473 mL 5Active M-RICHARD PLUS 27 mg iron- 1 mg tablet Indications:Malnutrition following gastrointestinal surgery,Postsurgical malabsorption,History of gastric bypassTAKE ONE TABLET BY MOUTH ONCE DAILY IN THE MORNING 90 tablet 5Active Active Problems ProblemNoted DateDiagnosed DateIron zabnke0801/15/2025Acne11/29/2023onstipation 05/30/2023Elevated transaminase level05/30/2023Vitamin B12 vbeovytvvj81/28/2023 Malnutrition following gastrointestinal fafvjcn5502/28/2023History of gastric bavfht9002/28/20236186Agdyknhiywq50/10/2023t risk for fluid and electrolyte imbalance 12/10/2022Other sleep apnea02/15/2022Hashimoto's avqpjdy7811/03/2020Migraine with aura and without status migrainosus, not ofydihqocaj68/04/2021nlarged thyroid 11/03/2020ersonal history of pocgedpxkklb61/04/2223Zsqtohq21/04/2021hronic back pain08/11/2018 Resolved Problems ProblemNoted DateDiagnosed DateResolved DatePostsurgical wjfmibvobkqph17/26/2023 01/15/2025Obesity, Class I, BMI 30-34.90/Morbid obesity with BMI of 40.0-44.9, adult/10/2022Weight gain/10/2022 Primary cjbuzvgawsft10/31/202207/cute ear pain, nregwglja81/18/2021 10/02/2021cute non-recurrent maxillary /Upper respiratory ikovpoqry15Left wrist isfdsr27/ Weight loss counseling, encounter for/Left elbow tendonitis nxiety and yzvrkqajme45/04/202107/astroesophageal reflux disease with esophagitis without vaggnjmrmh14Thyroid disease affecting ixbeufuzl54H/O migraine during hronic hypertension affecting cxhrfpefu21 Depression affecting vixasnilq42nxiety during Encounters DateTypeDepartmentCare YnfoRxxbsviexcc54/03/2025Refill [facility] [address] [place] [address] Shantanu Barrett MD Malnutrition following gastrointestinal surgery; Postsurgical malabsorption; History of gastric ksbmod3404/26/2025bstract [facility] [address] [place] [address] Zuhair Chavarria DO from Last 3 Months Immunizations No known immunizations Family History Medical HistoryRelationNameCommentsArthritisBrotherHyperlipidemiaBrother HypertensionBrotherArthritisFatherDiabetesFatherHyperlipidemiaFatherHypertension FatherMelanomaFatherSkin cancerFatherHeart diseaseMaternal GrandfatherDementia Maternal GrandmotherDiabetesMaternal GrandmotherHeart diseaseMaternal GrandmotherHeart failureMaternal GrandmotherHyperlipidemiaMaternal Grandmother HypertensionMaternal GrandmotherLung diseaseMaternal GrandmotherArthritisMother CancerMotherHypertensionMotherHeart diseasePaternal GrandfatherAlzheimer's diseasePaternal GrandmotherAneurysmPaternal Grandmotherbrain aneusymDiabetes Paternal GrandmotherHyperlipidemiaPaternal GrandmotherStrokePaternal Grandmother DiabetesSisterDrug abuseSisterAnesthesia problemsNeg HxColon cancerNeg Hx RelationNameStatusCommentsBrotherAliveFatherAliveMaternal GrandfatherDeceased Maternal GrandmotherDeceasedMotherAlivePaternal GrandfatherDeceasedPaternal GrandmotherDeceasedSisterAlive Social History Tobacco UseTypesPacks/DayYears UsedDateSmoking Tobacco: FormerCigarettes0.310 10/31/2010 - 1Passive Smoke Exposure: PastSmokeless Tobacco: Never Tobacco Cessation:Counseling Given: Not Answered Comments:2-3 cigarettes a day Alcohol UseStandard Drinks/WeekCommentsNo0 (1 standard drink = 0.6 oz pure alcohol)AUDIT-CAnswerDate RecordedFrequency of Alcohol ConsumptionNever 1Average Number of DrinksNot on file11/03/2020Frequency of Binge DrinkingNot on file1PHQ-2AnswerDate RecordedTotal Glcck873 ChildcareAnswerDate GqetpaxeOrmqwnguvVmclmcd42/03/2019EmploymentAnswerDate VguabodtLeenbzxwtyEmeyamy99/03/2019Hunger ScreeningAnswerDate RecordedWithin the past 12 months we worried whether our food would run out before we got money to buy more.Never True02/19/2025Within the past 12 months the food we bought just didn't last and we didn't have money to get more.Never True02/19/2025Purpose - LifeAnswerDate RecordedPurpose and direction in yvjjNpzlwbv17/11/2021 CommentsNoSex and Gender InformationValueDate RecordedSex Assigned at BirthNot on fileLegal HxzFqcmms95/29/2018 3:38 PM EDTGender IdentityNot on fileSexual OrientationNot on file Last Filed Vital Signs Vital SignReadingTime TakenCommentsBlood Jhpymnyt367/78002/19/2025 7:42 AM EDT Eurjs738802/19/2025 7:42 AM CUMHytfjtnrkuu91.6 ??C (97.8 ??F)02/19/2025 7:42 AM EDTRespiratory Ljge886505/30/2023 8:38 AM EDTOxygen Sdbiccelnr15%02/19/2025 7:42 AM EDTInhaled Oxygen Concentration--Wenndq72.7 kg (142 lb 9.6 oz)02/19/2025 7:42 AM HREIeyqqh334.1 cm (5' 5 )02/19/2025 7:42 AM EDTBody Mass Index23.7302/19/2025 7:42 AM EDT Plan of Treatment DateTypeDepartmentCare Team (Latest Contact Info)Xkhmbrayyjz12/08/2026 8:30 AM EDTOffice Visit [facility] [address] [place] [address]. [address] [place] [address] Shantanu Barrett MD [address] [address] Amy Chiu, PA-C [address] [facility] [address] [place] [address] Health MaintenanceDue DateLast DoneCommentsDTaP,Tdap and Td Vaccines (1 - Tdap) 2006Influenza Hvkylit35/01/2025Adult BMI Iylaivhrp93 Depression Viqpumvds235Tobacco Thzyzfieg01606/Pap Smear11//12/2023, 06/20/2023 Medical Devices Not on file Insurance * Guarantor: Michelle Rivera TypeRelation to PatientDate of BirthPhone Billing AddressPersonal/YvgdfcTrsn1985 [address] [address] Advance Directives * Full Code (Latest Code Status on File) Date ActivatedDate InactivatedComments11/28/2022 9:55 AM11/28/2022 10:32 PM Care Teams Team MemberRelationshipSpecialtyStart DateEnd Date Nikki Koenig APRN-CA [address] [place] [address], [facility] [place] [address] PCP - GeneralNurse Practitioner01/16/24
--- OUTSIDE RECORDS SUMMARY | 2025-07-12 15:56 | XMS_ITS | Encounter Summary ---
Author Organization [facility] Address [address] [place] [address] Care Team Providers Care Human Services Program Specialist Name Role Phone Nita Oneil MD Primary Care Provider [phone] Encounter Details DateTypeDepartmentCare Team (Latest Contact Info)Nwepqnkqfcr21/10/2025amboo flowsheet [facility]OMJack YOUNG [address] [facility] [place] [address] Kirby Heredia DO [facility] [address] [place], [place] [address] Social History Tobacco UseTypesPacks/DayYears UsedDateSmoking Tobacco: FormerCigarettes Smokeless Tobacco: NeverAlcohol UseStandard Drinks/WeekCommentsNot Currently0 (1 standard drink = 0.6 oz pure alcohol)Caffeine: 1-2 cups/dayCommentsNoSex and Gender InformationValueDate RecordedSex Assigned at BirthNot on fileLegal PsjSvlewj06/15/2023 7:10 PM EDTGender IdentityNot on fileSexual OrientationNot on filedocumented as of this encounter Plan of Treatment DateTypeDepartmentCare Team (Latest Contact Info)Mxdwekpkrmg78/17/2025 2:20 PM ESTConsult NOMJack YOUNG [address] [place] [address] Kirby Heredia DO [address] [place], [place] [address] 08/01/2026 8:30 AM ESTProcedure Visit [facility] Karla YOUNG [address] [facility] [place] [address] Kirby Heredia DO [address] [facility] [place] [address] documented as of this encounter Visit Diagnoses Not on filedocumented in this encounter Care Teams Team MemberRelationshipSpecialtyStart DateEnd Date Nita Oneil MD PCP - GeneralFamily Zxdpyyef48/20/24documented as of this encounter
--- OUTSIDE RECORDS SUMMARY | 2025-07-12 15:56 | XMS_ITS | Clinical Summary ---
Author Organization [facility] Address [address] [place] [address] Care Team Providers Care Display Director Name Role Phone Nita Oneil MD Primary Care Provider [phone] Allergies Active AllergyReactionsCriticalityNoted DateCommentsPenicillin GHives,Swelling High06/16/2018PenicillinsHives,Swelling,QhinigzYjfp85/15/2018Sulfa Antibiotics Hives,Swelling,CwxcahpWudd07/15/2018 Ophthalmic agents Sulfamethoxazole-TrimethoprimHives,NdztukpdTxyl69/15/3252Bivgof94/14/2024 Other Reaction(s): Hives Medications MedicationSigDispense QuantityRefillsLast FilledStart DateEnd DateStatus cyanocobalamin (Vitamin B-12) 1000 MCG/ML injection Inject 1,000 mcg into the shoulder, thigh, or buttocks 1 (one) time.Active Ferrous Sulfate (IRON PO) Take 1 tablet by mouth in the morning.3Active ondansetron (Zofran) 4 MG tablet Take by mouthActive zinc gluconate 50 MG tablet Take 50 mg by mouth DailyActive Zanaflex 4 MG tablet Take 4 mg by mouth07/16/2024ctive Vit-Fe Fumarate-FA (M- Plus) 27-1 MG tablet Take 1 tablet by mouth in the morning.5Active B-D 3CC LUER-PAYAL SYR 25GX1/2 25G X 1-1/2 3 ML misc INJECT 1 SYRG INTO THE APPROPRIATE MUSCLE EVERY 30 (THIRTY) DAYS.04/02/2025 Active omeprazole (PriLOSEC) [address] capsule Take 40 mg by mouth in the morning.Active lactulose (Enulose) 10 GM/15ML solution oral solution TAKE 15 ML (10 G TOTAL) BY MOUTH IN THE MORNING AND 15 ML (10 G TOTAL) BEFORE BEDTIME.Active Linzess 290 MCG capsule TAKE 1 CAPSULE (290 MCG TOTAL) BY MOUTH IN THE MORNING.Active docusate sodium (Colace) 100 MG capsule TAKE ONE CAPSULE BY MOUTH IN THE MORNING AND ONE CAPSULE IN THE EVENING DAILY AT JKWYPHM0504/02/2025tive Calcium Citrate+D3 Petites 200-6.25 MG-MCG tablet Take 2 tablets by mouth in the morning and 2 tablets in the evening and 2 tablets before bedtime.5Active bisacodyl (Dulcolax) 10 MG suppository Insert 10 mg into the rectum in the morning.4Active polyethylene glycol, PEG, 3350 (MiraLax) 17 g packet 17 5Active metFORMIN XR (Glucophage-XR) 500 MG 24 hr tablet Indications:Menorrhagia with irregular cycleTake 1 tablet (500 mg) by mouth in the evening. Take with meals Do not crush, chew, or split. 30 tablet 5Active Calcium-Cholecalciferol 200-6.25 MG-MCG tablet Take 2 tablets by mouth in the morning and 2 tablets at noon and 2 tablets in the evening.Discontinued MV-Min-Fe Fum-FA-DHA ( 1 PO) Take by mouth Daily07/12/2025Discontinued omeprazole (PriLOSEC) [address] capsule every 12 (twelve) hours07/12/2025Discontinued topiramate (Topamax) 50 MG tablet 1 (one) time each day at the same time07/12/2025Discontinued ClearLax 17 GM/SCOOP powder TAKE 17 G BY MOUTH IN THE MORNING FOR 90 DAYS.Discontinued Docusate Sodium (COLACE PO) Take 100 mg by mouthDiscontinued atomoxetine (Strattera) 40 MG capsule TAKE 1 CAPSULE (40 MG TOTAL) BY MOUTH IN THE MORNING.07/12/2025Discontinued Active Problems ProblemNoted DateDiagnosed DateHPV nwiuzsuc29/28/2025Nexplanon ixxdmsi4707/28/2024 Lumbar paraspinal muscle spasm03/14/2023Lumbar dhlpnaxbwirdc92/13/2023 Encounters DateTypeDepartmentCare FasxQkemdynlonq60/10/2025 2:20 PM ESTProcedure Visit [facility] [address] [facility] [place] [address] Kirby Heredia, Well woman exam with routine gynecological exam; Sexually transmitted disease axllekvu20/10/2025amboo flowsheet [facility] [address] [facility] [place] [address] Kirby Heredia DO 04/29/2025 8:40 AM EDTOffice Visit [facility] [address] [facility] [place] [address] Kirby Heredia, HPV exposure; Menorrhagia with irregular cycle04/29/2025amboo flowsheet [facility]a [facility] [address] [facility] [place] [address] Kirby Heredia, from Last 3 Months Family History Medical HistoryRelationNameCommentsDiabetesFatherChuckHyperlipidemiaFatherChuck HypertensionFatherChuckMelanomaFatherChuckHeart diseaseMaternal Grandfather DiabetesMaternal GrandmotherCharlotteHyperlipidemiaMaternal GrandmotherCharlotte HypertensionMaternal GrandmotherCharlotteCancerMotherVickiHyperlipidemiaMother VickiHypertensionMotherVickiOsteoarthritisMotherVickiHeart diseasePaternal GrandfatherDiabetesPaternal GrandmotherRosieHypertensionPaternal Grandmother RosieAsthmaSisterTaraRelationNameStatusCommentsFatherChuckAliveMaternal GrandfatherMaternal GrandmotherCharlotteMotherVickiPaternal GrandfatherPaternal GrandmotherRosieSisterTara Social History Tobacco UseTypesPacks/DayYears UsedDateSmoking Tobacco: FormerCigarettes Smokeless Tobacco: Never Tobacco Cessation:Counseling Given: Not Answered Alcohol UseStandard Drinks/WeekCommentsNot Currently0 (1 standard drink = 0.6 oz pure alcohol)Caffeine: 1-2 cups/dayCommentsNoSex and Gender Information ValueDate RecordedSex Assigned at BirthNot on fileLegal MelVzekdu93/15/2023 7:10 PM EDTGender IdentityNot on fileSexual OrientationNot on file Last Filed Vital Signs Vital SignReadingTime TakenCommentsBlood Itznjsen337/8207/12/2025 2:36 PM EST Hqtmx002008/13/2024 1:12 PM WUGIneubbzgtbg50.7 ??C (98 ??F)08/13/2024 1:12 PM EST Respiratory Ykhr1801 1:12 PM ESTOxygen [place]10%08/13/2024 1:12 PM ESTInhaled Oxygen Concentration--Vmzsah40.9 kg (140 lb 12.8 oz)07/12/2025 2:36 PM WGUSvnvxs216.4 cm (5' 5.5 )07/22/2024 11:37 AM ESTBody Mass Index23.07 07/22/2024 11:37 AM EST Plan of Treatment DateTypeDepartmentCare Team (Latest Contact Info)Mqgwrnnwzay06/17/2025 2:20 PM ESTConsult [facility] [address] [place] [address] [place] [address] Kirby Heredia, DO [address] [facility] [place] [address] 08/01/2026 8:30 AM ESTProcedure Visit [facility] [address] [place] [address] [place] [address] Kirby Heredia, DO [address] [place] [address] Insurance Care Teams Team MemberRelationshipSpecialtyStart DateEnd Date Nita Oneil MD PCP - GeneralFamily Oprharyx77/20/24
--- OUTSIDE RECORDS SUMMARY | 2025-07-12 15:56 | XMS_ITS | Clinical Summary ---
Author Organization [facility] Address [address] [place] [address], [address] [place] [address] Care Team Providers [employer] Name Role Phone Bubba Cortes MD Primary Care Provider + Allergies Active AllergyReactionsCriticalityNoted SlqeVjxaytgjEnbxutzhpuh45/12/2014Sulfa Nemuthcyyfk49/12/2014 Medications MedicationSigDispense QuantityRefillsLast FilledStart DateEnd DateStatus Ascorbic Acid (VITAMIN C) 500 MG tablet Take 2,000 mg by mouth daily.Active phentermine (ADIPEX-P) 37.5 MG capsule Take 37.5 mg by mouth every morning.Active naproxen sodium (ANAPROX DS) 550 MG tablet Take 1 tablet by mouth 2 times daily (with meals). Avoid alcohol and all other NSAIDs while taking this medication, avoid if there is any chance of 30 tablet ctive Social History Tobacco UseTypesPacks/DayYears UsedDateSmoking Tobacco: FormerCommentsNo Sex and Gender InformationValueDate RecordedSex Assigned at BirthNot on file Legal DeiCkxoxq72/10/2013 10:02 AM ESTGender IdentityNot on fileSexual OrientationNot on file Last Filed Vital Signs Vital SignReadingTime TakenCommentsBlood Kqaussfe835/77009/30/2014 2:07 PM EST Yascr337509/30/2014 2:07 PM EIKCrslaupgvdz17.1 ??C (96.9 ??F)09/30/2014 2:07 PM ESTRespiratory Hwfn152409/30/2014 2:07 PM ESTOxygen Zsdyyxikdn252%09/30/2014 2:07 PM ESTInhaled Oxygen Concentration--Otinui09.2 kg (179 lb)09/30/2014 2:07 PM EST Fjsjvb810.1 cm (5' 5 )09/30/2014 2:07 PM ESTBody Mass Index29.7909/30/2014 2:07 PM EST Plan of Treatment Not on file Care Teams Team MemberRelationshipSpecialtyStart DateEnd Date Bubba Cortes MD PCP - Slqegae53/12/14
--- OUTSIDE RECORDS SUMMARY | 2025-07-12 16:00 | XMS_ITS | CCD ---
[facility] Organization [facility] Team Providers Care Conference Translator Name Role Phone None, No PCP Unavailable Unavailable Ed Malhotra Unavailable Abundio Galdamez Unavailable Delia Allen Unavailable DYLAN Pinto Primary Care Provider MD Ed Malhotra Attending Provider Abundio Galdamez DO A Unavailable Obie Galdamez DOin A Unavailable [phone] GENIN, FRANK A Referring Unavailable IN, FRANK A Referring Unavailable ED MALHOTRA Attending Unavailable VIJAYA PINTO Primary Care Unavailable ED MALHOTRA Admitting Unavailable MISC, DR UPTON Attending Unavailable VIJAYA PINTO Primary Care Unavailable MISC, DR UPTON Admitting Unavailable MISC, DR UPTON Consulting Unavailable GENIN, FRANK A Attending Unavailable GENIN, FRANK A Referring Unavailable GENIN, FRANK A Attending Unavailable GENIN, FRANK A Attending Unavailable GENIN, FRANK A Attending Unavailable GENIN, FRANK A Referring Unavailable GENIN, FRANK A Referring Unavailable GENIN, FRANK A Referring Unavailable HALLGREN, MARCELINA Attending Unavailable DIVENCENZO, MARLITA Attending Unavailable GENIN, FRANK A Referring Unavailable DIVENCENZO, MARLITA Attending Unavailable GENIN, FRANK A Referring Unavailable DIVENCENZO, MARLITA Attending Unavailable GENIN, FRANK A Referring Unavailable GENIN, FRANK A Attending Unavailable GENIN, FRANK A Referring Unavailable GENIN, FRANK A Referring Unavailable GENIN, FRANK A Attending Unavailable DYLAN Pinto Primary Care Provider MD Ed Malhotra Attending Provider Abundio Galdamez DO A Unavailable Unavailable Primary Care Provider Unavailabl e NONE, XXXX Primary Care Physician Unavailab jourdan Pinto APRN, Vijaya Kim Primary Care Provider Kirby Heredia DO Attending Provider [phone] Kirby Heredia Admitting Unavailable Kirby Heredia Attending Unavailable Vijaya Pinto Primary Care Unavailable Kirby Heredia Attending Unavailable Vijaya Pinto Primary Care Unavailable Kirby Heredia Admitting Unavailable Ed Malhotra Admitting Unavailable Ed Malhotra Attending Unavailable Vijaya Pinto Primary Care Unavailable Nita Oneil MD Primary Care Provider [phone] Koenig SPAR MACHINE OPERATOR HELPER-MUSIC LEADER, Rivka Primary Care Provider Millie SPAR MACHINE OPERATOR HELPER-MUSIC LEADER, Vijaya Kim Primary Care Provi estephanie Koenig SPAR MACHINE OPERATOR HELPER-MUSIC LEADER, Rivka Primary Care Provider DEYVI WEST Referring Unavailable KOENIG, RIVKA Primary Care Unavailable STEFANO HINTON Referring Unavailable KOENIG, RIVKA Primary Care Unavailable STEFANO HINTON Attending Unavailable VIJAYA PINTO Referring Unavailable KOENIG, RIVKA Primary Care Unavailable STEFANO HINTON Referring Unavailable KOENIG, RIVKA Primary Care Unavailable ROB LOMBARDO Attending Unavailable KOENIG, RIVKA Referring Unavailable KOENIG, RIVKA Primary Care Unavailable KOENIG, RIVKA Referring Unavailable KOENIG, RIVKA Primary Care Unavailable PETEY DE GUZMAN Attending Unavailable KOENIG, RIVKA Referring Unavailable KOENIG, RIVKA Primary Care Unavailable ESTHELA WILSON Attending Unavailable NICHOL BARRETT Referring Unavailable KOENIG, RIVKA Primary Care Unavailable VIJAYA PINTO Referring Unavailable VIJAYA PINTO A Primary Care Unavailable KOENIG, RIVKA Referring Unavailable KOENIG, RIVKA Primary Care Unavailable KOENIG, RIVKA Referring Unavailable KOENIG, RIVKA Primary Care Unavailable KOENIG, RIVKA Attending Unavailable KOENIG, RIVKA Referring Unavailable KOENIG, RIVKA Primary Care Unavailable Nita Oneil MD Primary Care Provider [phone] KIRBY HEREDIA Attending Unavailable KIRBY HEREDIA Attending Unavailable KIRBY HEREDIA Attending Unavailable KIRBY HEREDIA Attending Unavailable LIDIA NAJERA Attending Unavailable KIRBY HEREDIA Referring Unavailable MATTHEW ZANE N Attending Unavailable Vijaya Pinto APRN Primary Care Provider Ed Malhotra MD Attending Provider [phone] Aym Alfonso APRN Attending Provider [phone] Kamaljit May Admitting Unavailable Kamaljit May Attending Unavailable Kamaljit May Referring Unavailable NONE, XXXX Referring Unavailable Amy Durbin Admitting Unavailable Amy Durbin Attending Unavailable Joslyn Gong Attending Unavailable Kirby HEREDIA Referring Unavailable HARDY BARR Attending Unavailable HARDY BARR Attending Unavailable HARDY BARR Referring Unavailable Allergies Allergy ClassificationReported Allergen(s)Allergy TypeDate of OnsetReaction(s) Facility (14 sources)Penicillins; Translations: [Penicillins]Allergy to drug (finding) 27-66-1408Pdyif, [facility] [place] [facility] (14 sources)Sulfonamides (Antibiotic); Translations: [Sulfa Drugs]Allergy to drug (finding)Unknown (qualifier value)[facility] (20 sources)Penicillin G; Translations: [PENICILLIN G]Drug Dtcvzzw20-90-2112 [facility] (20 sources)Sulfacetamide / SulfurDrug AllergyhiSaint [facility] [employer] Other (7 sources)Sulfacetamide; Translations: [sulfacetamide]Drug Uyiovye05-86-7387 [facility] (20 sources)Sulfur; Translations: [sulfur]Drug Eogdqmg52-24-5357LhmhaImjghdhyvLima City Hospital (18 sources)PenicillinsDrug Soqipub94-37-1328[facility]xz[facility] Work Phone: (20 sources)Sulfonamides (Antibiotic); Translations: [SULFA (SULFONAMIDE ANTIBIOTICS)]Drug Usibajy80-09-8839Fbuur, Swelling, UnknownK[facility] Work Phone: (1 source)diphenhydrAMINEDrug Zzffwgt36-09-5515Hgw [facility] Rep[facility] (1 source)PenicillinsDrug allergy (disorder)67-62-5966Tbl [facility] (1 source)Sulfonamides (Antibiotic)Drug allergy (disorder)64-06-8025Xyc [facility] (20 sources)PenicillinsDrug Qfuulxf08-12-7122Stiby, Swelling, UnknownNOMS Healthcare (20 sources)Sulfamethoxazole / TrimethoprimDrug Pfnllxa19-17-2850Gnwaq, Swelling [facility] (4 sources)Penicillin; Translations: [penicillin]Drug AllergyUnknown (qualifier value)[facility] (5 sources)Non-steroidal anti-inflammatory agent; Translations: [NSAIDs]Drug eznagzm50-90-6444Tthlx (qualifier value)[facility] (1 source)PenicillinDrug Jiwqrcp39-18-2962AmmsuycahSelect [facility] (1 source)Sulfonamide; Translations: [sulfa drugs]Drug allergyUnknown (qualifier value)[facility] (12 sources)Non-steroidal anti-inflammatory agent; Translations: [NSAIDS (NON- STEROIDAL ANTI-INFLAMMATORY DRUG)]Propensity to adverse reactions to drug 66-00-1553CcdHsmprnCoshoct[facility] (3 sources)NSAIDS (Non-Steroidal Anti-InflammaPropensity to adverse reactions 97-56-1037Oinjaso ReactionSelect Medical Specialty Hospital - CantonComment on above:No Oral NSAIDS, Gastric Bypass Medications Current Medications MedicationDrug Class(es)DatesSig (Normalized)Sig (Original)Acetaminophen / Codeine (3 sources)Opioid AgonistStart: 89-03-1890Wpczxin with Codeine #3 300 mg, Oral, as needed for pain, Refill(s) 0 Start Date: 07/20/24 Status: OrderedStart: 05-03-2023 End: 61-84-8194xqob 1 tablet by mouth every four hours as neededacetaminophen- codeine (TYLENOL-COD #3) 300-30 mg per tablet Indications: Lateral epicondylitis of right elbow Take 1 tablet by mouth every 4 hours as needed for up to 7 days. 8 tablet 0 05/03/2023 05/10/2023 ActiveStart: 04-20-2023 End: 17-01-2378kwnv 1 tablet by mouth every four hours as neededacetaminophen- codeine (TYLENOL-CODEINE #3) 300-30 mg per tablet Indications: Right elbow pain , Lateral epicondylitis of both elbows Take 1 tablet by mouth every 4 hours as needed for up to 5 days. 12 tablet 0 12/20/2022 12/25/2022 ActiveComment on above:Take 1 tablet by mouth every 4 hours as needed for up to 5 days.Take 1 tablet by mouth every 4 hours as needed for up to 7 days.atomoxetine 40 mg oral capsule (7 sources)Norepinephrine Reuptake InhibitorStart: 52-45-7947gkzl 1 capsule by mouth in the morningatomoxetine (STRATTERA) 40 mg capsule Indications: ADHD (attention deficit hyperactivity disorder),inattentive type Take 1 capsule (40 mg total) by mouth in the morning. 30 capsule 2 02/19/2025 Activeazithromycin 250 mg oral tablet (2 sources)Macrolide AntimicrobialStart: 40-11-8319I-D 3CC LUER-HUMBERTO SYR 25GX1/2 25G X 1-1/2 3 ML misc (2 sources)Start: 43-39-2210F-D 3CC LUER-HUMBERTO SYR 25GX1/2 25G X 1-1/2 3 ML misc INJECT 1 SYRG INTO THE APPROPRIATE MUSCLE EVERY 30 (THIRTY) DAYS. 04/02/2025 Activebenzoyl peroxide 0.05 mg/mg / clindamycin 0.01 mg/mg topical gel (16 sources)Lincosamide AntibacterialStart: 11-28-2023 End: 06-17-8461htlysaarmhz-benzoyl peroxide (BENZACLIN) gel Apply 1 Application topically daily as needed (acne). 25 g 1 01/16/2024 Activebisacodyl 5 mg delayed release oral tablet (19 sources)Stimulant LaxativeStart: 07-22-2024 End: 40-77-0840tlpj 1 tablet by mouth oncebisacodyl (Dulcolax) 5 MG EC tablet Indications: Rectal bleeding Take 1 tablet (5 mg) by mouth 1 time for 1 dose Do not crush, chew, or split. Take as detailed on clinic hand out for colonoscopy prep4 tablet 07/22/2024 07/22/2024 ActiveStart: 07-20-2024 End: 70-89-2076zzgsosstJ (DULCOLAX) 10 mg suppository Insert 1 suppository (10 mg total) into the rectum in the morning. 07/20/2024 Activecalcium citrate 950 mg / cholecalciferol 250 unt oral tablet (20 sources)Vitamin DStart: 08-15-2023 End: 40-75-3332qbpk 2 tablets by mouth three times dailyStart: 04-18-2023 Calcium-Cholecalciferol 200-6.25 MG-MCG tablet Take 2 tablets by mouth in the morning and 2 tabletsat noon and 2 tablets in the evening. 04/18/2023 Active Calcium Citrate+D3 Petites 200-6.25 MG-MCG tablet (2 sources)Start: 43-16-7049fhis 2 tablets by mouth in the morning, then take 2 tablets by mouth in the evening, then take 2 tablets by mouth at bedtimeCalcium Citrate+D3 Petites 200-6.25 MG-MCG tablet Take 2 tablets by mouth in the morning and 2 tablets in the evening and 2 tablets before bedtime. 04/02/2025 Active cholecalciferol 0.025 mg oral tablet (3 sources)Vitamin DStart: 12-36-9376edrgcmv (as carbonate)-vitamin D 90 mg-25 mcg (1000 intl units) oral tablet See Instructions, Refill(s) 0, daily Start Date: 07/16/24 Status: OrderedCyanocobalamin (Vitamin B-12) 1,000 mcg/mL solution (1 source)Start: 13-39-4299Zrlwvnsdllvdfr (Vitamin B-12) 1,000 mcg/mL solution Active MCG IM November 10, 2023 11:00pmdocusate sodium 100 mg oral capsule (20 sources)Start: 28-14-1050Wfxgp: 68-31-8138Kldpouju Sodium (COLACE PO) Take 100 mg by mouth 09/10/2024 ActiveStart: 05-30-2023 End: 94-03-3363Juoryube Sodium 100 mg capsule Active MG PO May 20, 2025 12:00am Complies with drug therapyferrous sulfate (20 sources)Start: 30-20-0114nife 1 tablet by mouth in the morningFerrous Sulfate (IRON PO) Take 1 tablet by mouth in the morning. 02/28/2023 Active lactulose 667 mg/ml oral solution (14 sources)Osmotic LaxativeStart: 02-04-3566mkai 10 g by mouth at bedtime lactulose (CHRONULAC) 10 gram/15 mL solution TAKE 15 ML (10 G TOTAL) BY MOUTH IN THE MORNING AND 15ML (10 G TOTAL) BEFORE BEDTIME. 473 mL 1 06/07/2025 Active Start: 08-35-2342Ibhpu: 01-22-2025 End: 96-49-6279msve 10 g by mouth at bedtimelactulose (CHRONULAC) 10 gram/15 mL solution Take 15 mL (10 g total) by mouth in the morning and 15mL (10 g total) before bedtime. 473 mL 1 01/22/2025 06/07/2025 Discontinuedlinaclotide 0.29 mg oral capsule (11 sources)Guanylate Cyclase-C AgonistStart: 38-37-1963Hznsj: 02-16-2025 End: 93-91-0720Ldxxzkfvlpi (Linzess) 290 mcg capsule Active MCG PO May 20, 2025 12:00am Complies with drugtherapyM-TROY PLUS 27 mg iron- 1 mg tablet (1 source)Start: 09-14-2003ovuz 1 tablet by mouth once daily in the morningM- PLUS 27 mg iron- 1 mg tablet Indications: Malnutrition following gastrointestinal surgery ,Postsurgical malabsorption , History of gastric bypass TAKE ONE TABLET BY MOUTH ONCE DAILY IN THE MORNING 90 tablet 1 06/07/2025 Active 24 hr metFORMIN hydrochloride 500 mg extended release oral tablet (8 sources)BiguanideStart: 04-29-2025 End: 24-80-5553fdgo 1 tablet by mouth every twenty-four hours at mealtime metFORMIN XR (Glucophage-XR) 500 MG 24 hr tablet Indications: Menorrhagia with irregular cycle Take1 tablet (500 mg) by mouth in the evening. Take with meals Do not crush, chew, or split. 30 tablet 11 04/29/2025 05/29/2025 ActiveStart: 11-07-2021 End: 77-74-0484Sazfaitas 500 mg tablet Discontinued 500 MG PO As Directed November 07, 2021 1:00am March 13, 2022 7:22amMilk of Magnesia 8% Susp-Oral (1 source)Start: 63-72-7861xcys 4.8 g by mouth once daily at bedtime for constipationMilk of Magnesia 8% Susp-Oral 4.8 gm, 60 mL, Oral, Once a day (at bedtime) for constipation, 600 mL, Refill(s) 0 Start Date: 09/10/24 Status: Ckxzmrj19 hr mirabegron 25 mg extended release oral tablet (2 sources)beta3-Adrenergic AgonistStart: 07-20-2024 End: 15-47-1867zqxw 1 tablet by mouth once dailymirabegron 25 mg oral tablet, extended release 25 mg = 1 tab(s), Oral, Daily, X 30 day(s), # 30 tab(s), Refills(s) 11, Pharmacy: [facility] 1155, 165, cm, 07/20/24 10:51:00 EST, Height/Length Dosing, 69, kg, 07/20/24 10:51:00 EST, Weight Dosing Start Date: 07/20/24 Stop Date: 07/15/25 Status: Orderedondansetron 4 mg oral tablet (20 sources)Serotonin-3 Receptor Antagonistondansetron (Zofran) 4 MG tablet Take by mouth ActiveOzempic (0.25 or 0.5 MG/DOSE) (20 sources)Ozempic (0.25 or 0.5 MG/DOSE) ActivePNV Plus Multivitamin 27-1 MG (14 sources)take 1 tablet by mouth in the morningPNV Plus Multivitamin 27-1 MG TAKE 1 TABLET BY MOUTH IN THE MORNING Oral for 60 Days ActivePnv,Calcium 59-Cfua-Azlqn Acid (M- Plus) 27 mg iron- 1 mg tablet (2 sources)Start: 37-30-2565DNQ,calcium 10-czfn-kdezs acid ( VITAMIN PLUS LOW IRON) 27 mg iron- 1 mg tablet (14 sources)Start: 01-15-2025 End: 97-87-4370wyot 1 tablet by mouth in the morningPNV,calcium 72-bhts-pjvlh acid ( VITAMIN PLUS LOW IRON) 27 mg iron- 1 mg tablet Indications: Malnutrition following gastrointestinal surgery , Postsurgical malabsorption , History of gastric bypass Take 1 tablet by mouth in the morning for 360 days. 90 tablet 1 01/15/2025 06/07/2025 DiscontinuedStart: 01-15-2025 End: 65-73-8881fmor 1 tablet by mouth in the morningPNV,calcium 39-djyr-pzfqn acid ( VITAMIN PLUS LOW IRON) 27 mg iron- 1 mg tablet Indications: Malnutrition following gastrointestinal surgery , Postsurgical malabsorption , History of gastric bypass Take 1 tablet by mouth in the morning for 360 days. 90 tablet 1 01/15/2025 01/10/2026 ActiveStart: 05-13-2024 End: 50-35-1742vbeh 1 tablet by mouth once daily in the morningPNV,calcium 69-szhw-gtanx acid ( VITAMIN PLUS LOW IRON) 27 mg iron- 1 mg tablet Indications: Postsurgical malabsorption , Malnutrition following gastrointestinal surgery , History of gastric bypass take one tablet by mouth once daily in the morning 90 tablet 1 05/13/2024 01/15/2025 Discontinued (Reorder)Start: 68-62-7067fzil 1 tablet by mouth once daily in the morning PNV,calcium 93-apei-ztqsc acid ( VITAMIN PLUS LOW IRON) 27 mg iron- 1 mg tablet Indications: Postsurgical malabsorption , Malnutrition following gastrointestinal surgery , History of gastric bypass take one tablet by mouth once daily in the morning 90 tablet 1 05/13/2024 Activepolyethylene glycol 3350 72692 mg powder for oral solution (17 sources)Osmotic LaxativeStart: 77-41-8562Xiumf: 01-15-2025 End: 44-25-3355qrzloemvxysy glycol (GLYCOLAX) 17 gram/dose powder Indications: Constipation, unspecified constipation type Take 17 g by mouth in the morning for 90 days. 1530 g 01/15/2025 04/15/2025 ActiveStart: 55-75-6639axlb 17 g by mouth in the morningClearLax 17 GM/SCOOP powder TAKE 17 G BY MOUTH IN THE MORNING FOR 90 DAYS. 04/02/2025 ActiveStart: 67-21-2187XbigMwv 17 gm, Daily, Refill(s) 0 Start Date: 09/10/24 Status: OrderedStart: 07-22-2024 End: 14-98-1760kiul 17 g by mouth oncepolyethylene glycol, PEG, 3350 (Glycolax) 17 GM/SCOOP powder Indications: Colonoscopy Take 238 g bymouth 1 (one) time for 1 dose Take as detailed from clinic hand out for colonoscopy prep 238 g 07/2207/22/2024 ActivePrenatal (9 sources) ActivePrenatal MV-Min-Fe Fum-FA-DHA ( 1 PO) (20 sources) MV-Min-Fe Fum-FA-DHA ( 1 PO) Take by mouth Daily Activeprenatal vit 10-iron fum-folic 65-1 mg tablet (5 sources)Start: 02-28-2023 End: 04-77-5280zuld 1 tablet by mouth in the morningprenatal vit 10-iron fum- folic 65-1 mg tablet Indications: Postsurgical malabsorption , Malnutrition following gastrointestinal surgery , History of gastric bypass Take 1 tablet by mouth in the morning. 90 tablet 3 02/28/2023 05/13/2024 DiscontinuedStart: 54-49-6338kcwa 1 tablet by mouth in the morningprenatal vit 10-iron fum-folic 65-1 mg tablet Indications: Postsurgical malabsorption , Malnutrition following gastrointestinal surgery , History of gastric bypass Take 1 tablet by mouth in the morning. 90 tablet 3 02/28/2023 ActivePrenatal Vit-Fe Fumarate-FA (M- Plus) 27-1 MG tablet (2 sources)Start: 38-40-4983mnph 1 tablet by mouth in the morningPrenatal Vit-Fe Fumarate-FA (M-Troy Plus) 27-1 MG tablet Take 1 tablet by mouth in the morning. 04/02/2025 Activeprenatal vits 4/iron fum/folic (-H ORAL) (18 sources) vits 4/iron fum/folic (-H ORAL) Take by mouth once daily. Activeprenatal vits 4/iron fum/folic (-H ORAL) Take by mouth once daily. 0 ActiveComment on above:Take by mouth once daily.syringe with needle (BD LUER-HUMBERTO SYRINGE) 3 mL 25 x 1 1/2 syringe (19 sources)Start: 25-25-3780igmgzgo with needle (BD LUER-HUMBERTO SYRINGE) 3 mL 25 x 1 1/2 syringe Indications: Malnutrition following gastrointestinal surgery , Postsurgical malabsorption , History of gastric bypass Inject 1 SYRGinto the appropriate muscle every 30 (thirty) days. 3 each 3 01/15/2025 ActiveStart: 07-14-2024 End: 39-15-0790tyvlrtf with needle (BD LUER-HUMBERTO SYRINGE) 3 mL 25 x 1 1/2 syringe Indications: Malnutrition following gastrointestinal surgery , History of gastric bypass , Postsurgical malabsorption , Vitamin R36npuvcqtgwr USE TO INJECT CYANOBALAMIN ONCE EVERY MONTH 3 each 1 07/14/2024 01/15/2025 Discontinued (Reorder)Start: 08-21-3165jxxgexx with needle (BD LUER-HUMBERTO SYRINGE) 3 mL 25 x 1 1/2 syringe Indications: Malnutrition following gastrointestinal surgery , History of gastric bypass , Postsurgical malabsorption , Vitamin J41nwaoapuiiv USE TO INJECT CYANOBALAMIN ONCE EVERY MONTH 3 each 1 07/14/2024 ActiveStart: 05-30-2023 End: 20-15-0968jitdxkr with needle (BD LUER-HUMBERTO SYRINGE) 3 mL 25 x 1 1/2 syringe Indications: Malnutrition following gastrointestinal surgery , History of gastric bypass , Postsurgical malabsorption , Vitamin W24amjhpjejha 1 SYRG by miscellaneous route every 30 (thirty) days. 3 each 1 05/30/2023 07/14/2024 Disc ontinuedStart: 11-33-0777zqcamjb with needle (BD LUER-HUMBERTO SYRINGE) 3 mL 25 x 1 1/2 syringe Indications: Malnutrition following gastrointestinal surgery , History of gastric bypass , Postsurgical malabsorption , Vitamin Y93xloneobgtv 1 SYRG by miscellaneous route every 30 (thirty) days. 3 each 1 05/30/2023 Active Syringe With Needle (Bd Luer-Humberto Syringe) 3 mL 25 x 1 1/2 syringe (2 sources)Start: 46-85-0940Fmcknkc With Needle (Bd Luer-Humberto Syringe) 3 mL 25 x 1 1/2 syringe Active ML .ROUTE .MEDSUPPLY 100October 2024 12:00am As directedvibegron 75 MG Oral Tablet (2 sources)Start: 07-20-2024 End: 05-63-9331iyur 1 tablet by mouth once dailyvibegron 75 mg oral tablet 75 mg = 1 tab(s), Oral, Daily, X 30 day(s), # 30 tab(s), Refills(s) 11, Pharmacy: [facility], 165, cm, 07/20/24 10:51:00 EST, Height/Length Dosing, 69, kg, 07/20/24 10:51:00 EST, Weight Dosing Start Date: 07/20/24 Stop Date: 07/15/25 Status: OrderedVitafusion (3 sources)Start: 41-01-5839Srlvoslxxn 2 tab(s), Chewed, Daily, Refill(s) 0 Start Date: 07/16/24 Status: OrderedVitamin B Complex 100 injectable solution (3 sources)Start: 20-96-9963Ikwaido B Complex 100 injectable solution See Instructions, Refill(s) 0, monthly injection Start Date: 07/16/24 Status: OrderedStart: 33-36-6387Tceardc B Complex 100 injectable solution See Instructions, Refill(s) 0 Start Date: 07/16/24 Status: Orderedvitamin b12 1 mg/ml injectable solution (20 sources)Vitamin A01Rkmhv: 09-84-1549Kbaafbmzewbqqv (Vitamin B-12) Active MCG IM November 11, 2023 12:00amStart: 05-30-2023 End: 29-66-3537cwwrqyrezkeill (Vitamin B-12) 1000 MCG/ML injection Inject 1,000 mcg into the shoulder, thigh, or buttocks 1 (one) time. ActiveCyanocobalamin 1000 MCG/ML INJECT 1 ML (1,000 MCG TOTAL) INTO THE APPROPRIATE MUSCLE EVERY 30 (THIRTY) DAYS. Injection for 30 Days ActiveZinc (3 sources)Start: 74-46-4837Pbcz See Instructions, daily, Refills(s) 0 Start Date: 07/16/24 Status: OrderedStart: 81-28-4155Ubfm See Instructions, Refills(s) 0 Start Date: 07/16/24 Status: Orderedzinc gluconate 50 mg oral tablet (20 sources)Start: 11-28-2023 End: 01-15-2025 Completed/Discontinued Medications MedicationDrug Class(es)DatesSig (Normalized)Sig (Original)8 hr acetaminophen 650 mg extended release oral tablet (5 sources)Start: 11-14-2023 End: 89-64-7701Vdyqdpqwjftpz 650 mg tablet extended release Discontinued MG PO November 14, 2023 12:00am May 20, 2025 9:37amStart: 11-14-2023 Acetaminophen Active MG PO November 14, 2023 12:03sfkdq175539 200 actuat albuterol 0.09 mg/actuat metered dose inhaler (20 sources)beta2-Adrenergic AgonistStart: 16-07-0346tkbu 2 puff(s) by inhalation every four hours as neededAlbuterol Sulfate HFA 108 (90 Base) MCG/ACT 2 puffs as needed Inhalation every 4 hrs Aug, Not-TakingStart: 90-49-3074lnzx 2 puff(s) by inhalation every four hours as neededAlbuterol Sulfate HFA 108 (90 Base) MCG/ACT 2 puffs as needed Inhalation every 4 hrs Aug, Not-Takingamitriptyline hydrochloride 25 mg oral tablet (20 sources)Tricyclic AntidepressantStart: 09-12-2022 End: 23-82-3551wnxygxapbllgu (ELAVIL) 25 mg tablet TAKE 1/2 TO 1 TABLET BY MOUTH ONCE DAILY AT BEDTIME 30 30 tablet 2 09/12/2022 01/15/2025 Discontinued (Therapy completed)atenolol 25 mg oral tablet (20 sources)beta-Adrenergic BlockerStart: 11-07-2021 End: 66-13-4335wgdn 1 tablet by mouth once dailyAtenolol 25 mg tablet Discontinued 25 MG PO Daily November 07, 2021 1:00am November 11, 2023 11:30am Start: 48-53-8608Hgmibvch 25 MG Oral Tablet Quantity: 0 Refills: 0 Ordered: 04-Oct-2021 DO Start : 04-Oct-2021 ActiveComment on above:Take 25 mg by mouth once daily.12 hr buPROPion hydrochloride 150 mg extended release oral tablet (16 sources)AminoketoneStart: 11-07-2021 End: 85-04-1692acsn 1 tablet by mouth once dailyBupropion Hcl 150 mg tablet sustained-release 12 hr Discontinued 150 MG PO Daily November 07, 2021 1:00am November 07, 2021 10:33amStart: 48-25-3198qypz 1 tablet by mouth once daily Wellbutrin XL 150 MG Oral Tablet Extended Release 24 Hour TAKE 1 TABLET DAILY DIRECTED. Quantity: 0 Refills: 0 Ordered: 20-Apr-2021 DO Start : 20-Apr-2021 Activecitalopram 40 mg oral tablet (20 sources)Serotonin Reuptake InhibitorStart: 11-07-2021 End: 29-82-5071xujb 1 tablet by mouth once dailyCitalopram 40 mg tablet Discontinued 40 MG PO Daily November 07, 2021 1:00am November 11, 2023 11:30am Start: 09-74-7392BxvfEI 40 MG Oral Tablet Quantity: 0 Refills: 0 Ordered: 20-Apr-2021 DO Start : 20-Apr-2021 ActiveComment on above:Take 40 mg by mouth once daily.cyclobenzaprine hydrochloride 10 mg oral tablet (20 sources)Muscle RelaxantStart: 47-67-9657rrjz 1 tablet by mouth three times daily as neededCyclobenzaprine HCl - 10 MG Oral Tablet TAKE 1 TABLET 3 TIMES DAILY NEEDED. Quantity: 0 Refills:0 Ordered: 20-Apr-2021 DO Start : 20-Apr-2021 Activetake 1 tablet by mouth every twenty-four hoursCyclobenzaprine HCl 10 MG 1 tablet at bedtime as needed Orally Once a day Not-Takingdiclofenac sodium 0.01 mg/mg topical gel (9 sources)Nonsteroidal Anti-inflammatory DrugStart: 02-93-5078Eflcqxqfxa Sodium 1 % apply 1 gram to bilateral elbows Externally 2-4 times a day for 30 days May, Not-Takingdoxycycline hyclate 100 mg oral capsule (5 sources)Tetracycline-class DrugStart: 11-11-2023 End: 73-93-3740xanz 1 capsule by mouth twice dailyDoxycycline Hyclate 100 mg capsule Discontinued 100 MG PO Twice daily 20 10 0 November 11, 2023 12:00am November 14, 2023 9:16amEPINEPHrine 0.01 mg/ml / lidocaine hydrochloride 10 mg/ml injectable solution (1 source)Antiarrhythmic, alpha-Adrenergic Agonist, beta-Adrenergic Agonist, Catecholamine, Amide Local AnestheticStart: 05-03-2023 End: 24-98-9243pinpbpqqs 1%-EPINEPHrine 1:100,000 2 mL injectionetonogestrel 68 mg drug implant (18 sources)Progestin End: 41-58-7782lxasnblcocvG (NEXPLANON) 68 mg implant 1 each (68 mg total) by subdermal route once. 01/15/2025 Discontinued (Therapy completed) End: 60-94-6956ohoxvphodvvk-eluting (Nexplanon) 68 mg contraceptive implant Inject 68 mg under the skin 4Discontinued (Therapy completed)famotidine 20 mg oral tablet (11 sources)Histamine-2 Receptor AntagonistStart: 47-63-6308tdlr 1 tablet by mouth twice dailyPepcid 20 MG Oral Tablet TAKE 1 TABLET TWICE DAILY. Quantity: 0 Refills: 0 Ordered: 20-Apr-2021 DO Start : 20-Apr-2021 Activefluticasone propionate 0.05 mg/actuat metered dose nasal spray (5 sources)CorticosteroidStart: 11-11-2023 End: 09-60-3566kjjv 1 spray(s) nasal route once dailyFluticasone Propionate 50 mcg/actuation spray,suspension Discontinued 2 SPRAY INTRANASAL Daily 16 0Mar2023 12:00am May 20, 2025 9:37am administer into each axwnmrj49 ml lidocaine hydrochloride 10 mg/ml injection (1 source)Antiarrhythmic, Amide Local AnestheticStart: 12-20-2022 End: 07-09-3317irvncxwmp (PF) 10 mg/mL (1 %) 2 mL injection (XYLOCAINE)Start: 12-20-2022 End: 55-65-0348tkxmfemmu (PF) 10 mg/mL (1 %) 2 mL injection (XYLOCAINE) methylPREDNISolone 4 mg oral tablet (20 sources)CorticosteroidStart: 11-11-2023 End: 95-64-1879tong 1 tablet by mouth onceMethylprednisolone (Medrol (Michael)) 4 mg tablets,dose pack Discontinued 0 PO per package directions November 11, 2023 12:00am November 14, 2023 9:16am PO PER PKG DIR for 6 daysStart: 02-14-2023 methylPREDNISolone (MEDROL DOSE-PACK) 4 mg Dose-Pack As Instructed per package 1 tablet 0 02/14/2023 ActiveStart: 10-79-0079Ucdeko 4 MG as directed Orally for 6 days Mar, Not-TakingComment on above:As Instructed per packageNaltrexone (9 sources)Opioid AntagonistStart: 10-12-2022 End: 75-97-3819jego 4.5 mg by mouth once dailynaltrexone HCl (NALTREXONE ORAL) Take 4.5 mg by mouth nightly. Back pain 10/12/2022 01/15/2025 Discontinued (Therapy completed)Start: 58-82-6176lsal 4.5 mg by mouth once dailynaltrexone HCl (NALTREXONE ORAL) Take 4.5 mg by mouth nightly. Back pain 10/12/2022 Active Start: 62-72-9703axty 4.5 mg by mouth once dailynaltrexone HCl (NALTREXONE ORAL) Take 4.5 mg by mouth nightly. Back pain 0 10/12/2022 Activenaproxen 375 mg oral tablet (20 sources)Nonsteroidal Anti-inflammatory DrugStart: 09-11-2021 End: 07-62-8870Bqkpqcvk 375 mg tablet Discontinued 375 MG PO As Directed November 07, 2021 1:00am November 11, 2023 11:30amomeprazole 20 mg delayed release oral capsule (20 sources)Proton Pump InhibitorStart: 11-07-2021 End: 66-39-0805Ydtguaazmy 20 mg capsule,delayed release(DR/EC) Discontinued 20 MG PO As Directed November 07, 2021 1:00am November 11, 2023 11:30amStart: 31-05-9975tdph 1 tablet by mouth twice dailyCVS Omeprazole 20 MG Oral Tablet Delayed Release Take 1 tablet twice daily Quantity: 0 Refills: 0 Ordered: 20-Apr-2021 DO Start : 20-Apr-2021 ActiveStart: 92-79-8069fegv 1 capsule by mouth once daily before breakfastomeprazole (PriLOSEC) 40 mg capsule Take 1 capsule (40 mg total) by mouth every morning before breakfast. 07/20/2024 Active omeprazole (PriLOSEC) [address] capsule every 12 (twelve) hours ActiveComment on above:Take 40 mg by mouth once daily.pregabalin 50 mg oral capsule (20 sources)Start: 90-65-1729Owhvvtyjfz Active MG PO November 14, 2023 12:00am Start: 08-29-2023 End: 48-51-6544Prvcvjebaw 50 mg capsule Discontinued MG PO November 14, 2023 12:00am May 20, 2025 9:37amStart: 19-95-6462mdgn 1 capsule by mouth every twelve hoursLyrica 200 MG 1 capsule Orally Twice a day for 30 days Jan, ActiveStart: 29-57-4330tmek 1 capsule by mouth every twelve hoursLyrica 200 MG 1 capsule Orally Twice a day for 30 days December, ActiveStart: 09-12-2022 End: 68-32-3305wiyn 2 capsules by mouth in the morning, then take 2 capsules by mouth at bedtimepregabalin (LYRICA) 100 mg capsule Indications: fibromyalgia Take 2 capsules (200 mg total) by mouth in the morning and 2 capsules (200 mg total) before bedtime. Indications: disorder characterized by stiff, tender & painful muscles. 0 09/12/2022 08/29/2023 Discontinued (Dose adjustment)Start: 03-27-2022 End: 72-60-2355hcsr 1 capsule by mouth twice dailyPregabalin 75 mg capsule Discontinued 75 MG PO Twice daily April 17, 2022 12:00am November 11, 2023 11:30amtake 1 capsule by mouth twice dailypregabalin (LYRICA) 100 mg capsule Take 100 mg by mouth twice daily. Activetake 1 capsule by mouth every twelve hoursLyrica 200 MG 1 capsule Orally Twice a day for 30 days ActiveComment on above:Take 100 mg by mouth twice daily. Gzhoplvh-Pzr-Jm-Fa () 1 mg Tablet (6 sources)Start: 04-17-2022 End: 95-65-5450yfyf 1 tablet by mouth once dailyPrenatal Wjocjrsv-Nai-Ui-Fa () 1 mg Tablet Discontinued 1 TAB PO Daily April 17, 2022 12:00am June 28, 2025 2:42pmStart: 56-63-1993fzcx 1 tablet by mouth once daily Wwueyugp-Rqw-Ta-Fa () 1 mg Tablet Active 1 TAB PO Daily April 17, 2022 12:00am Complies with drug therapyStart: 93-24-5611nihp 1 tablet by mouth once dailyPrenatal Wkyqokrf-Yos-Dc-Fa () 1 mg Tablet Active 1 TAB PO Daily April 16, 2022 11:00pmStart: 29-61-0952vxom 1 tablet by mouth once dailyPrenatal Flzgvztc-Iya-Jr-Fa () 1 mg Tablet Active 1 TAB PO Daily April 17, 2022 12:00am20 ml ropivacaine hydrochloride 5 mg/ml injection (1 source)Amide Local AnestheticStart: 05-03-2023 End: 51-63-4248YSFkbzructb (PF) 5 mg/mL (0.5 %) 4 mL injection (NAROPIN)0.25 mg, 0.5 mg dose 1.5 ml semaglutide 1.34 mg/ml pen injector (8 sources)Start: 11-07-2021 End: 58-47-0901Znwapbbqqtb (Ozempic) 0.25 mg or 0.5 mg(2 mg/1.5 mL) pen injector Discontinued 0.25 MG SUBCUT As Directed November 07, 2021 1:00am March 13, 2022 7:22amStart: 89-41-8727Susagyt (0.25 or 0.5 MG/DOSE) 2 MG/1.5ML Subcutaneous Solution Pen-injector Quantity: 0 Refills: 0 Ordered: 04-Oct-2021 DO Start : 04-Oct-2021 ActivetiZANidine 4 mg oral tablet (20 sources)Central alpha-2 Adrenergic AgonistStart: 11-11-2023 End: 69-49-9971Avboapmmbv Discontinued MG PO November 11, 2023 12:00am November 14, 2023 10:25amStart: 02-21-2023 End: 75-78-9536umvq 1 tablet by mouth twice daily as neededTizanidine 4 mg tablet Discontinued 4 MG PO Twice daily as needed for muscle spasticity 60 30 2 November 14, 2023 10:24am May 20, 2025 9:38amStart: 02-21-2023 End: 67-97-7495lyzk 1 tablet by mouth every eight hoursZanaflex 4 mg Tab 4 mg = 1 tab(s), Oral, q8hr, Refills(s) 0 Start Date: 07/16/24 Status: OrderedStart: 66-19-4798unRNEhgwmn (ZANAFLEX) 4 mg tablet TAKE 12 TO 1 TABLET BY MOUTH ONCE DAILY AT BEDTIME 30 02/21/2023 Activetopiramate 100 mg oral tablet (20 sources)Start: 03-04-2023 End: 16-46-1947apkl 1 tablet by mouth once dailytopiramate (TOPAMAX) 100 mg tablet Indications: Migraine without aura and without status migrainosus, not intractable Take 1 tablet (100 mg total) by mouth nightly. 90 tablet 2 03/04/2023 01/15/2025 Discontinued (Therapy completed)Start: 11-07-2021 End: 20-42-8413Aougjlgiqo 100 mg tablet Discontinued 50 MG PO As Directed November 07, 2021 1:00am November 11, 2023 11:32amStart: 11-07-2021 End: 73-29-5758Zwdoqaxftt Discontinued 50 MG PO As Directed November 07, 2021 1:00am November 11, 2023 11:32amStart: 49-10-1059podf 1 tablet by mouth once dailyTopamax 50 MG Oral Tablet TAKE 1 TABLET DAILY. Quantity: 0 Refills: 0 Ordered: 20-Apr-2021 DO Start: 20-Apr-2021 ActiveStart: 63-83-4592Qplukzi 100 MG Oral Tablet Quantity: 0 Refills: 0 Ordered: 20-Apr-2021 DO Start : 20-Apr-2021 Activetriamcinolone acetonide 40 mg/ml injectable suspension (20 sources)CorticosteroidStart: 52-66-5799Nlxwlod-40 Mar, 40 mgStart: 21-12-2719Rqjvahv -40 mg Sep, 40 mgStart: 39-45-5837Rdjijji -40 mg Mar, 40 mgubrogepant 50 mg oral tablet (6 sources)Start: 11-07-2021 End: 29-34-4436Zfcomrwfrd (Ubrelvy) 50 mg tablet Discontinued 50 MG PO As Directed as needed for Migraine HeadacheNovember 07, 2021 1:00am November 11, 2023 11:32am Problems Active Problems Problem ClassificationProblemDateDocumented DateEpisodic/ChronicAbdominal pain (7 sources)Pain in female pelvis; Translations: [Pelvic and perineal pain]Onset: 713129-27-2000ZymzepneMlhzgl (13 sources)Exercise-induced asthma; Translations: [Exercise induced bronchospasm]00-71-1778AuptapoAbfhblxpc-deficit, conduct, and disruptive behavior disorders (1 source)Attention deficit hyperactivity disorder, predominantly inattentive type; Translations: [Attention-deficit hyperactivity disorder, predominantly inattentive type]31-42-4039RuygvydDwtiozhvy-deficit, conduct, and disruptive behavior disorders (1 source)Attention-deficit hyperactivity disorder, predominantly inattentive type; Translations: [Attention-deficit hyperactivity disorder, predominantly inattentive type]Onset: 85-18-6317HonosawPnlourcwk-deficit, conduct, and disruptive behavior disorders (1 source)Attention deficit hyperactivity disorderOnset: 36-83-2664Suomzdx Complications of surgical procedures or medical care (20 sources)Post-gastrointestinal tract surgery malnutrition; Translations: [Postsurgical malabsorption, not elsewhere classified]Onset: 02-28-2023 Resolved: 448690-51-6932MsvzeorDqvwzpxd mellitus without complication (11 sources)Prediabetes; Translations: [Other abnormal glucose]Episodic Gastrointestinal hemorrhage (3 sources)Rectal hemorrhage; Translations: [Hemorrhage of anus and rectum] Onset: 106171-74-0413YdrexylrBqswsspxmdcoo symptoms and ill-defined conditions (1 source)Stress incontinence (female) (male); Translations: [Stress incontinence (female) (male)]Onset: 12-91-9864RebzsygDrgrmnokxokvk symptoms and ill-defined conditions (4 sources)Microscopic hematuria; Translations: [Increased frequency of urination]42-57-1719PcgejoikElopzzbt; including migraine (20 sources)Migraine; Translations: [Migraine, unspecified, without mention of intractable migraine without mention of status migrainosus]Onset: 11-03-2020 95-07-6036YthndhjEjdff valve disorders (2 sources)Heart -23-4311VpjkxvpzFjxiqoqviqf (2 sources)Internal hemorrhoids; Translations: [Other hemorrhoids]07-22-2024 EpisodicHypertension complicating ; childbirth and the puerperium (17 sources)Chronic hypertension complicating AND/OR reason for care during ; Translations: [Unspecified pre-existing hypertension complicating , unspecified trimester]Onset: 08-11-2018 Resolved: 104305-49-3292BmtxofnQjajrxprqnsxi and screening for infectious disease (5 sources)Exposure to sexually transmissible disorder; Translations: [Contact with and (suspected) exposure to infections with a predominantly sexual mode of transmission]Onset: 413214-08-3255NxruhtswKtmkzdytb disorders (16 sources)Menorrhagia; Translations: [Excessive or frequent menstruation] 68-49-9613QhdtjkxEifhyy and vomiting (1 source)VomitingOnset: 32-55-9274SqbkczntWxrct connective tissue disease (11 sources)Tendinitis; Translations: [Enthesopathy of unspecified site]Episodic Other connective tissue disease (18 sources)Fibromyalgia; Translations: [Myalgia and myositis, unspecified] EpisodicOther connective tissue disease (11 sources)Disease suspected; Translations: [Other symptoms involving nervous and musculoskeletal systems]EpisodicOther connective tissue disease (7 sources)Lateral epicondylitis of bilateral humerus; Translations: [Lateral epicondylitis, right elbow]EpisodicOther connective tissue disease (3 sources)H/O: pjbaehvpxautnl97-59-3799RyhsjrrtKtviz connective tissue disease (1 source)Panniculitis; Translations: [Panniculitis, unspecified]08-20-2024 EpisodicOther diseases of bladder and urethra (2 sources)Overactive oyjnbzr32-22-2370RjzxmduUhrab female genital disorders (1 source)Abnormal uterine bleeding; Translations: [Abnormal uterine and vaginal bleeding, unspecified]61-51-8726KgnnxirSkhgw gastrointestinal disorders (1 source)Irritable bowel syndrome characterized by constipation; Translations: [Irritable bowel syndrome with constipation]42-35-0404FzuqxdwAtxwh gastrointestinal disorders (20 sources)History of bypass of stomach; Translations: [Bariatric surgery status]Onset: 015259-60-3092JaglacspXpazi gastrointestinal disorders (3 sources)Altered bowel function; Translations: [Change in bowel habit] 88-41-8166FsrhuljgKhtob gastrointestinal disorders (1 source)Change in bowel habit; Translations: [Change in bowel habit]Onset: 79-26-9401YfzpiksaIbtqb lower respiratory disease (11 sources)Snoring; Translations: [Other respiratory abnormalities]Episodic Other nervous system disorders (20 sources)Chronic pain; Translations: [Other chronic pain]60-33-8321Chskgvz Other nervous system disorders (12 sources)Other chronic pain; Translations: [Other chronic pain]Onset: 09-14-2021 Resolved: 11-60-6587RotnzocIeyel non-traumatic joint disorders (20 sources)Hip pain; Translations: [Pain in unspecified hip]71-29-1700Ytrdpqum Other non-traumatic joint disorders (20 sources)Pain in elbow; Translations: [Pain in left elbow]Onset: 02-22-2023 EpisodicOther nutritional; endocrine; and metabolic disorders (11 sources)Metabolic syndrome X; Translations: [Dysmetabolic syndrome X]Chronic Other nutritional; endocrine; and metabolic disorders (20 sources)Severe obesity; Translations: [Morbid (severe) obesity due to excess calories]ChronicOther nutritional; endocrine; and metabolic disorders (20 sources)Morbid obesity; Translations: [Body mass index (BMI) 60.0-69.9, adult]ChronicOther nutritional; endocrine; and metabolic disorders (1 source)Morbid (severe) obesity due to excess caloriesOnset: 03-19-2022 Resolved: 40-46-1332RnuslbxWizmk nutritional; endocrine; and metabolic disorders (1 source)Excess panniculus of abdomen; Translations: [Localized adiposity] 07-50-4236VhblrwtOnouu nutritional; endocrine; and metabolic disorders (1 source)Localized adiposity; Translations: [Localized adiposity]11-28-2023 ChronicOther nutritional; endocrine; and metabolic disorders (10 sources)Iron overload; Translations: [Other disorders of iron metabolism] Onset: 774371-84-7197CjdsoasMhuly nutritional; endocrine; and metabolic disorders (1 source)Other disorders of iron metabolism; Translations: [Other disorders of iron metabolism]Onset: 44-44-0563YvrhyouQbqic upper respiratory infections (1 source)Chronic sinusitis, unspecified; Translations: [Unspecified sinusitis (chronic)]52-04-5911BpsclejZcxer upper respiratory infections (20 sources)Acute pharyngitis, unspecified; Translations: [Acute pharyngitis] Onset: 07-04-2021 Resolved: 703373-43-0536TwwhsnbzApgtezmz codes; unclassified (20 sources)Sleep apnea; Translations: [Sleep apnea, unspecified]Onset: 50-60-6783KhvzihsLexokkgn codes; unclassified (2 sources)Sleep apnea, unspecified; Translations: [Sleep apnea, unspecified type]Onset: 32-82-1092LtwfaxhGaygaaso codes; unclassified (1 source)Other sleep apnea; Translations: [OTHER SLEEP APNEA]Onset: 05-08-2022 ChronicResidual codes; unclassified (1 source)Pain; Translations: [Pain, unspecified]44-36-6564VnmkddspPvqjvloi codes; unclassified (1 source)Pain, unspecified; Translations: [Pain, unspecified]Onset: 02-09-2025 EpisodicSpondylosis; intervertebral disc disorders; other back problems (20 sources)Intervertebral disc prolapse; Translations: [Displacement of intervertebral disc, site unspecified,without myelopathy]Onset: 09-14-2021 Resolved: 32-55-6580BqsmybkAyhlkxm disorders (20 sources)Polina thyroiditis; Translations: [Chronic lymphocytic thyroiditis]Onset: 783654-77-6787TjbwwcfBzpetoyeokxl (3 sources)GASTR-ESOPH RFLX DS ESPHGTS W/O BLD; Translations: [GASTR-ESOPH RFLX DS ESPHGTS W/O BLD]Onset: 92-07-9607Cusitetxuzuc (1 source)Nutrition CounselingOnset: 45-44-7748Uwhdkyduulqq (1 source)GasOnset: 43-03-7251Pybfkqvjtxgn (1 source)BloatedOnset: 90-99-7463Hjcmgbqdvixi (1 source)New PatientOnset: 13-31-6756Ladiyldpgfos (2 sources)Autogenerated ProblemOnset: 691647-28-3133Jqmtr infection (3 sources)Herpes cciqdjl26-51-3844Xnvoqlmv Past or Other Problems Problem ClassificationProblemDateDocumented DateEpisodic/Chronic Administrative/social admission (20 sources)Patient encounter status; Translations: [Encounter for pre- employment examination]Onset: 02-20-2021 Resolved: 405079-91-3562GksuimkvKlhibna disorders (20 sources)Mixed anxiety and depressive disorder; Translations: [Dysthymic disorder]Onset: 11-03-2020 Resolved: 41-19-6337PmhhkqwHiohiejidhozs and procreative management (10 sources)Subcutaneous contraceptive implant present; Translations: [Encounter for surveillance of implantable subdermal contraceptive]Onset: 07-28-2024 83-29-2689HpcfxxuxQyrqminmkf disorders (20 sources)Gastroesophageal reflux disease; Translations: [Esophageal reflux] Onset: 11-03-2020 Resolved: 163346-04-7807WhiihffCgrpsbmus hypertension (20 sources)Benign essential hypertension; Translations: [Benign essential hypertension]Onset: 10-02-2021 Resolved: 532837-03-3327UzezncvYfgfn and electrolyte disorders (17 sources)Dehydration; Translations: [Dehydration]Onset: EpisodicMood disorders (17 sources)Mood disordersOnset: 03-04-2023 Resolved: 998818-30-8904Wyewxgegcbc deficiencies (20 sources)Cobalamin deficiency; Translations: [Deficiency of other specified B group vitamins]Onset: 192545-20-9033RdgnoshbAnizy complications of (17 sources)Thyroid disease in mother complicating , childbirth AND/OR puerperium; Translations: [Endocrine, nutritional and metabolic diseases complicating , unspecified trimester]Onset: 08-11-2018 Resolved: 346379-84-3256LwzhmrriArhrx complications of (17 sources)Depressive disorder in mother complicating ; Translations: [Other mental disorders complicating , unspecified trimester]Onset: 08-11-2018 Resolved: 397784-40-9468TdgxodojDcaye complications of (7 sources)Anxiety in ; Translations: [Other mental disorders complicating , unspecified trimester]Onset: 08-11-2018 Resolved: 620618-37-4130YfizuvxbJkngc complications of (10 sources)Other mental disorders complicating , unspecified trimester; Translations: [Mental disorders of mother, antepartum condition or complication]Onset: 08-11-2018 Resolved: 994574-58-5234HhhutfdkAajul connective tissue disease (4 sources)Lateral epicondylitis, left elbow; Translations: [Lateral epicondylitis of both elbows]Onset: 03-19-2022 Resolved: 56-46-3613EftuhiyaLejze connective tissue disease (5 sources)Lateral epicondylitis, right elbow; Translations: [Lateral epicondylitis of both elbows]Onset: 03-19-2022 Resolved: 57-00-3477UdwpovneSkmwk connective tissue disease (2 sources)Fibromyalgia; Translations: [Fibromyalgia]Onset: 28-86-8423Ozoztiaz Other connective tissue disease (12 sources)Lateral epicondylitis of right humerus; Translations: [Lateral epicondylitis, right elbow]Onset: 05-61-6481CawayqygAnfld connective tissue disease (18 sources)H/O: musculoskeletal disease; Translations: [Personal history of other diseases of the musculoskeletal system and connective tissue]Onset: 771558-57-3492RidqatufMzzbc connective tissue disease (17 sources)Muscle pain; Translations: [Myalgia, unspecified site]Onset: 466155-31-5870LloggnjhMiiwc connective tissue disease (17 sources)Tendinitis of left elbow; Translations: [Other enthesopathies, not elsewhere classified]Onset: 12-06-2020 Resolved: 217906-77-6706QwvrbfijLfjgn connective tissue disease (1 source)Panniculitis, unspecified; Translations: [Panniculitis, unspecified] Onset: 30-09-6426XyjyuyecNhooy ear and sense organ disorders (17 sources)Pain of ear structure; Translations: [Otalgia, bilateral]Onset: 07-20-2021 Resolved: 403332-11-1740NjseveviHzpcm gastrointestinal disorders (12 sources)History of bariatric surgical procedure; Translations: [Bariatric surgery status]62-91-2220CykjrznqWgkja gastrointestinal disorders (20 sources)Constipation; Translations: [Other constipation]Onset: 05-30-2023 12-03-5412CxigbadcEjpho gastrointestinal disorders (1 source)Drug-induced constipation; Translations: [Drug induced constipation] 64-95-4289EnhmruxwXifxf gastrointestinal disorders (3 sources)Bariatric surgery status; Translations: [Bariatric surgery status] Onset: 14-60-6024GnajgtszVuugn gastrointestinal disorders (1 source)Constipation, unspecified; Translations: [Constipation, unspecified] Onset: 51-06-4861JnnntzmnWvsjf liver diseases (17 sources)Enzyme level - finding; Translations: [Elevated transaminase level] Onset: 026784-68-0506ByreowdbJtysg nervous system disorders (17 sources)H/O: migraine; Translations: [Personal history of other diseases of the nervous system and sense organs]Onset: 08-11-2018 Resolved: 561059-73-3070BvbutgviFdqpw non-traumatic joint disorders (2 sources)Pain in unspecified hipOnset: 11-16-2021 Resolved: 43-30-9181FvlkyzsbMmkft non-traumatic joint disorders (4 sources)Pain in left elbow; Translations: [Left elbow pain]Onset: 03-19-2022 Resolved: 50-00-9072WaazazrkKaiim non-traumatic joint disorders (2 sources)Pain in right elbow; Translations: [Right elbow pain]Onset: 59-39-2071EugttjawIkjyl non-traumatic joint disorders (2 sources)Pain in right hip; Translations: [Pain in joint, pelvic region and thigh]Onset: 988716-87-7164LzqcchkbBewyj nutritional; endocrine; and metabolic disorders (20 sources)Body mass index 40+ - severely obese; Translations: [Morbid obesity] Onset: 11-28-2022 Resolved: 226246-69-1111HzbceowMwnsp nutritional; endocrine; and metabolic disorders (17 sources)Obese class I; Translations: [Obesity, Class I, BMI 30-34.9]Onset: 02-28-2023 Resolved: 919664-28-6984VjkgczyFhatb nutritional; endocrine; and metabolic disorders (12 sources)Weight increased; Translations: [Abnormal weight gain]Onset: 02-15-2022 Resolved: 657748-15-9902OmfznzwpNvcec nutritional; endocrine; and metabolic disorders (5 sources)Weight gain; Translations: [Abnormal weight gain]Onset: 02-15-2022 Resolved: 767465-65-7678ZqmqluuyAyeys skin disorders (16 sources)Acne; Translations: [Acne, unspecified]Onset: 337220-89-1199 EpisodicResidual codes; unclassified (17 sources)At risk of disease; Translations: [Other specified personal risk factors, not elsewhere classified]Onset: 563827-97-3653Rzrrzwkc Spondylosis; intervertebral disc disorders; other back problems (20 sources)Spasm of back muscles; Translations: [Other symptoms referable to back]Onset: 08-11-2018 Resolved: 78-20-2076YctbhnkvWphggcu and strains (17 sources)Sprain of left wrist; Translations: [Unspecified sprain of left wrist, initial encounter]Onset: 02-20-2021 Resolved: 874613-29-8940DhgutoiaJktlgalqmmol (20 sources)Other low back pain; Translations: [Other low back pain]Unclassified (6 sources)Other low back pain M54.59Onset: 09-14-2021 Resolved: 74-05-1491Wpuyjqvcthwb (1 source)GASTR-ESOPH RFLX DS ESPHGTS W/O BLD; Translations: [GASTR-ESOPH RFLX DS ESPHGTS W/O BLD]Onset: 43-85-3456Quluotpsoxfg (3 sources)History of bypass of cvkmbxe73-79-6762 Results Test NameValueInterpretationReference RangeFacilityUS ABDOMEN LMTDon 01-29-2025 US ABDOMEN LMTDUS ABDOMEN LMTD ABDOMEN LIMITED ULTRASOUND HISTORY: Right upper quadrant pain COMPARISON: 03/26/2022 FINDINGS: Pancreas: Visualized portions of the pancreatic head and body are unremarkable. Visualized portions of liver are homogenous in echotexture without focal lesion. No intrahepatic biliary dilatation. Main portal vein is patent with appropriate direction of flow. Gallbladder sludge, no definite stone. No wall thickening, no adjacent fluid. Common duct measures 3 mm, within normal limits for patient's provided age. No visualized ascites. IMPRESSION: 1. Gallbladder sludge. Finalized by Jake Coleman MD on 01/29/2025 1:09 [facility] XR ABDOMEN AP 1 VWon 59-09-6522GR ABDOMEN AP 1 VWXR ABDOMEN AP 1 VW Abdomen single view Clinical history:Malnutrition following gastrointestinal surgery; Change in bowel habits Comparison: None. Findings: AP supine view of the abdomen. Nonobstructive bowel gas pattern. Mild amount of gas and stool throughout the colon colorectal junction. Impression: Mild amount of stool in the colon and colorectal junction. Nonobstructive bowel gas pattern. Finalized by Israel Luis MD on 01/28/2025 6:18 PMNormalProOhio State Health SystemFERRITINon 73-20-3722Cujeikrl [Mass/Vol]13 ng/zFSpbmvv39-813YjjEsgwgoMercer County Community HospitalComment on above:Order Comment: Add to blood from 01/13/25. Performed By: #### FERR #### [facility] ([facility]) [address] [place] [address] VIRFerritinon 27-49-7045Duqzmwhp [Mass/Vol]13 ng/mL11 - 307 ng/mLWilson HealthInterpretation and review of laboratory results NormalProVan Wert County HospitalProVan Wert County HospitalIron and TIBCon 01-15-2025 Interpretation and review of laboratory resultsAbnormalProVan Wert County Hospital Iron [Mass/Vol]170 ug/dL50 - 170 ug/dLWilson HealthIron binding capacity [Mass/Vol]434 ug/xFKpnq797 - 425 ug/dLWilson HealthIron saturation [Mass fraction]39ProVan Wert County HospitalTransferrin [Mass or moles/Vol]310 mg/dL168 - 336 mg/dLAspirus [facility] CALCIUMon 14-92-7376Iopmypu [Mass/Vol]9.2 mg/dLNormal8.5-10.5POhioHealth O'Bleness HospitalComment on above:Performed By: #### CA #### [facility] ([facility]) [address] [place] [address] VIRCBC WITH AUTO DIFFERENTIALon 73-31-3590EVTSZFKPR ABSOLUTE COUNT (10*3/UL) BY AUTOMATED COUNT0.0 10*3/uLNormal0.0-0.2POhioHealth O'Bleness HospitalComment on above:Performed By: #### CBCA #### [facility] ([facility]) [address] [place] [address] VIRBASOPHILS RELATIVE PERCENT BY AUTOMATED COUNT1.0 %Normal [facility] CenterComment on above:Performed By: #### CBCA #### [facility] ([facility]) [address] [place] [address] VIRCELLAVISION DIFFERENTIAL TYPEAUTOMATED DIFFERENTIALNormal [facility] CenterComment on above:Performed By: #### CBCA #### [facility] ([facility]) [address] [place] [address] VIREosinophils (Bld) [#/Vol]0.0 10*3/uLNormal0.0-0.4[facility] CenterComment on above:Performed By: #### CBCA #### [facility] ([facility]) [address] [place] [address] VIREOSINOPHILS RELATIVE PERCENT BY AUTOMATED COUNT1.0 %Normal [facility] CenterComment on above:Performed By: #### CBCA #### [facility] ([facility]) [address] [place] [address] VIRErythrocyte distribution width (RBC) [Ratio]14.4 %Normal 11.5-15[facility] CenterComment on above:Performed By: #### CBCA #### [facility] ([facility]) [address] [place] [address] VIRHematocrit (Bld) [Volume fraction]36.0 %Modpag46-33DpsYrongxBaylor Scott And White The Heart Hospital – PlanoComment on above:Performed By: #### CBCA #### [facility] ([facility]) [address] [place] [address] VIRHemoglobin (Bld) [Mass/Vol]12.0 g/zRVittne99.7-15.5POhioHealth O'Bleness HospitalComment on above:Performed By: #### CBCA #### [facility] ([facility]) [address] [place] [address] VIRLYMPHOCYTES ABSOLUTE COUNT (10*3/UL) BY AUTOMATED COUNT1.5 10*3/uLNormal1.0-3.5POhioHealth O'Bleness HospitalComment on above:Performed By: #### CBCA #### [facility] ([facility]) [address] [place] [address] VIRLYMPHOCYTES RELATIVE PERCENT BY AUTOMATED COUNT30.6 %Normal [facility] CenterComment on above:Performed By: #### CBCA #### [facility] ([facility]) [address] [place] [address] VIRMCH (RBC) [Entitic mass]29.4 jqUyckdt75-75PheYmprbsSouthern Ohio Medical CenterComment on above:Performed By: #### CBCA #### [facility] ([facility]) [address] [place] [address] VIRMCHC (RBC) [Mass/Vol]33.4 g/dXHecdtg86-85EwuBvnyehSouthern Ohio Medical CenterComment on above:Performed By: #### CBCA #### [facility] ([facility]) [address] [place] [address] VIRMCV (RBC) [Entitic vol]88 iXKvwair66-186GhiPegtsi Fremont HospitalComment on above:Performed By: #### CBCA #### [facility] ([facility]) [address] [place] [address] VIRMONOCYTES ABSOLUTE COUNT (10*3/UL) BY AUTOMATED COUNT0.3 10*3/uLNormal0.0-0.9[facility] CenterCombeaumont hospital on above:Performed By: #### CBCA #### [facility] ([facility]) [address] [place] [address] VIRMONOCYTES RELATIVE PERCENT BY AUTOMATED COUNT6.6 %Normal [facility] CenterComment on above:Performed By: #### CBCA #### [facility] ([facility]) [address] [place] [address] VIRNEUTROPHILS ABSOLUTE COUNT BY AUTOMATED COUNT2.9 10*3/uL Normal1.5-6.6[facility] CenterCombeaumont hospital on above:Performed By: #### CBCA #### [facility] ([facility]) [address] [place] [address] VIRNEUTROPHILS RELATIVE PERCENT BY AUTOMATED COUNT60.8 %Normal [facility] CenterComment on above:Performed By: #### CBCA #### [facility] ([facility]) [address] [place] [address] VIRPlatelet mean volume (Bld) [Entitic vol]8.0 fLNormal7-12 [facility] CenterComment on above:Performed By: #### CBCA #### [facility] ([facility]) [address] [place] [address] VIRPlatelets (Bld) [#/Vol]333 10*3/kZVawmel904-360EacKmwsli Fremont HospitalCombeaumont hospital on above:Performed By: #### CBCA #### [facility] ([facility]) [address] [place] [address] VIRRBC COUNT4.08 X10E12/LNormal3.8-5.2POhioHealth O'Bleness HospitalComment on above:Performed By: #### CBCA #### [facility] ([facility]) [address] [place] [address] VIRWBC (Bld) [#/Vol]4.8 10*3/uLNormal4-11[facility] CenterCombeaumont hospital on above:Performed By: #### CBCA #### [facility] ([facility]) [address] [place] [address] VIRCOPPER, Son 44-23-2724FBHGEM699 mcg/sZDfncbo54-671PblHvwckwSouthern Ohio Medical CenterComment on above:Result Comment: ADDITIONAL INFORMATION This test was developed and its performance characteristics determined by [facility] in a manner consistent with CLIA requirements. This test has not been cleared or approved by the U.S. Food and Drug Administration. Test Performed by: [facility] [address] [place] [address] Commercial Assistant: Danielle Paiz Ph.D.; CLIA# [id number] By: #### CPS #### [facility] [employer] ([facility]) [address] [place] [address] VIRFOLATEon 68-62-8038TPESE ACID>^25.0Normal>5.8ProBaylor Scott And White The Heart Hospital – PlanoComment on above:Performed By: #### FOLI #### [facility] ([facility]) [address] [place] [address] VIRIRONon 51-31-2630Cmux [Mass/Vol]182 ug/bIUyzy27-517IubBplgtmSouthern Ohio Medical CenterComment on above:Performed By: #### FE #### [facility] ([facility]) [address] [place] [address] VIRIRON AND TIBCon 73-64-6256Bbiz [Mass/Vol]170 ug/dLNormal 50-170ProBaylor Scott And White The Heart Hospital – PlanoComment on above:Order Comment: Add to blood from 01/13/25.Performed By: #### PTH #### [facility] ([facility]) [address] [place] [address] VIRIRON ZTEHSQY147 ug/cNHupr132-889AhnJcrebeSouthern Ohio Medical Center Comment on above:Order Comment: Add to blood from 01/13/25.Performed By: #### PTH #### [facility] ([facility]) [address] [place] [address] VIRIRON SWREKVVYZI84 % LTEYEGWRCOVuczrt48-43MxtKujgfb Fremont HospitalComment on above:Order Comment: Add to blood from 01/13/25.Performed By: #### PTH #### [facility] ([facility]) [address] [place] [address] VIRTransferrin [Mass/Vol]310 mg/bAOokzjq331-763McgJvntlk Fremont HospitalComment on above:Order Comment: Add to blood from 01/13/25. Performed By: #### PTH #### [facility] ([facility]) [address] [place] [address] VIRLIVER PANELon 16-92-9862Tzrzhjy [Mass/Vol]4.5 g/dLNormal 3.2-5.3POhioHealth O'Bleness HospitalComment on above:Performed By: #### LIVR #### [facility] ([facility]) [address] [place] [address] VIRALP [Catalytic activity/Vol]85 U/OEoxqcc27-452XaiCqsgcuBaylor Scott And White The Heart Hospital – PlanoComment on above:Performed By: #### LIVR #### [facility] ([facility]) [address] [place] [address] VIRALT [Catalytic activity/Vol]36 U/LHigh<=31POhioHealth O'Bleness HospitalComment on above:Performed By: #### LIVR #### [facility] ([facility]) [address] [place] [address] VIRAST [Catalytic activity/Vol]25 U/LNormal<=41ProBaylor Scott And White The Heart Hospital – PlanoComment on above:Performed By: #### LIVR #### [facility] ([facility]) [address] [place] [address] VIRBilirubin [Mass/Vol]0.4 mg/dLNormal0.3-1.2POhioHealth O'Bleness HospitalComment on above:Performed By: #### LIVR #### [facility] ([facility]) [address] [place] [address] VIRBilirubin.indirect [Mass/Vol]0.1 mg/dLNormal<=0.4ProBaylor Scott And White The Heart Hospital – PlanoComment on above:Performed By: #### LIVR #### [facility] ([facility]) [address] [place] [address] VIRProtein [Mass/Vol]7.3 g/dLNormal6.0-8.0ProBaylor Scott And White The Heart Hospital – PlanoComment on above:Performed By: #### LIVR #### [facility] ([facility]) [address] [place] [address] VIRPARATHYROID HORMOME, INTACTon 70-77-8657FBB PNGMPM11 pg/mL Tgllea18-24HkjStwygaBaylor Scott And White The Heart Hospital – PlanoComment on above:Performed By: #### PTH #### [facility] ([facility]) [address] [place] [address] VIRTHIAMIN (VITAMIN B1), WBon 39-93-8278SFXCUBL (VITAMIN B1), WB101 nmol/AJahmam51-228JkoTunpqkBaylor Scott And White The Heart Hospital – PlanoComment on above:Result Comment: ADDITIONAL INFORMATION This test was developed and its performance characteristics determined by [facility] in a manner consistent with CLIA requirements. This test has not been cleared or approved by the U.S. Food and Drug Administration. Test Performed by: [facility] [address] [place] [address] Commercial Assistant: Danielle Paiz Ph.D.; CLIA# [id number] By: #### PTH #### [facility] ([facility]) [address] [place] [address] VIRVITAMIN A (RETINOL)on 57-69-3251EQKHXRE PALMITATE<0.02Normal 0.00-0.10ProBaylor Scott And White The Heart Hospital – PlanoComment on above:Performed By: #### PTH #### [facility] ([facility]) [address] [place] [address] VIRVIT A,SER/PL INTERPNormalNormalProBaylor Scott And White The Heart Hospital – Plano Comment on above:Result Comment: This test was developed and its performance characteristics determined by [facility]. It has not been cleared or approved by the US Food and Drug Administration. This test was performed in a CLIA certified laboratory and is intended for clinical purposes. Performed By: [facility] [address] [place] [address] Proof Inspector: Jerome Abreu MD, PhD CLIA Number: [id number] By: #### PTH #### [facility] ([facility]) [address] [place] [address] VIRVITAMIN A(RETINOL)0.44 mg/LNormal0.30-1.20[facility] CenterComment on above:Performed By: #### PTH #### [facility] ([facility]) [address] [place] [address] VIRVITAMIN B12on 20-82-8332Lgonhpepu (Vitamin B12) [Mass/Vol] 595 pg/aQEsnppj285-780XysLalskxOhioHealth O'Bleness HospitalComment on above:Performed By: #### B12 #### [facility] ([facility]) [address] [place] [address] VIRVITAMIN D 25 HYDROXYon 96-58-9786BUXKODJ D 25 HYD TOT39.5 ng/rINfbuqc54.0-100.0[facility] CenterComment on above:Order Comment: Vitamin D status 25 [place] Vitamin D Deficiency <20 ng/mL Insufficiency 20-29 ng/mL Sufficiency 30-100 ng/mL Toxicity >100 ng/mL NOTE: A pediatric reference range has not been established by the candy rolling machine operator of this kit. The [place] [employer] recommends a Vitamin D level of = or >20ng/mL in infants and children.Performed By: #### VITD #### [facility] ([facility]) [address] [place] [address] KYLE, SERUMon 42-16-8839BPMR, S73 mcg/tIFczzfp69-591 [facility] CenterComment on above:Result Comment: ADDITIONAL INFORMATION This test was developed and its performance characteristics determined by [facility] in a manner consistent with CLIA requirements. This test has not been cleared or approved by the U.S. Food and Drug Administration. Test Performed by: [facility] [address] [place] [address] Commercial Assistant: Danielle Paiz Ph.D.; CLIA# [id number] By: #### ZINCS #### [facility] [employer] [facility]) [address] [place] [address] VIRNonvisit Note - PTon 90-42-1333Hjtddyea Note - PTNonvisit Note - PT 09/30/24 hf, pt left voice mail, can not make it, will call back to reschedule. [facility] HospitalProvider Letteron [phone] Letter Provider Letter September 25, 20[address]A [address] [place] [phone] : 1985 To Whom It May Concern, Please excuse above student from school - allow late arrive due to having been at a doctor's appointment this morning Comments: If any further verification is needed, please call us at [phone] option 3. Sincerely, [facility] CenterMain OR Intraoperative Recordon 27-26-4748Livw OR Intraoperative RecordMain OR Intraoperative Record IntraOp Document Type FTPM Summary Primary Physician: Kamaljit May DO Finalized Date/Time: 09/10/24 08:34:04 Pt. Name: MIGUEL MICHELLE Han D.O.B./Sex: 1985 Female Med Rec #: [id number] Physician: Kamaljit May DO Financial #: [id number] Pt. Type: P Room/Bed: / Admit/Disch: 09/10/24 07:07:50 - Institution: Case Times FTPM Entry 1 Patient Times In Room 09/10/24 08:12:00 Out Room 09/10/24 08:34:00 Procedure Times Start 09/10/24 08:15:00 Stop 09/10/24 08:33:00 Anesthesia Times Last Modified By: Gutierrez VILLEDA, Brittani Hernandez 09/10/24 08:33:22 Case Attendance FTPM Entry 1 Entry 2 Entry 3 Case Attendee Kamaljit May DO, RN, Brittani Dominguez RN, Winnie Casey Role Performed Surgeon - Primary Pediatric Sports Medicine Specialist - Primary Scrub - Primary Time In 09/10/24 08:12:00 09/10/24 08:12:00 09/10/24 08:12:00 Time Out 09/10/24 08:34:00 09/10/24 08:34:00 09/10/24 08:34:00 Procedure LUMBAR RADIO FREQUENCY LUMBAR RADIO FREQUENCY LUMBAR RADIO FREQUENCY ABLATION(Bilateral) ABLATION(Bilateral) ABLATION(Bilateral) Comments Last Modified By: Gutierrez VILLEDA, Brittani Whitley RN, Brittani Whitley RN, Brittani Hernandez 09/10/24 08:33:23 09/10/24 08:33:23 09/10/24 08:33:23 Entry 4 Entry 5 Case Attendee Jose VILLEDA, Woo Ayoub Role Performed Scrub - Relief Ride Mechanic Time In 09/10/24 08:12:00 09/10/24 08:12:00 Time Out 09/10/24 08:34:00 09/10/24 08:34:00 Procedure LUMBAR RADIO FREQUENCY LUMBAR RADIO FREQUENCY ABLATION(Bilateral) ABLATION(Bilateral) Comments Last Modified By: Gutierrez VILLEDA, Brittani Whitley RN, Brittani Hernandez 09/10/24 08:33:23 09/10/24 08:33:23 Perioperative Protocols FTPM Pre-Care Text: Implements protective measures prior to operative or invasive procedure, confirms identity before the operative or invasive procedure, verifies operative procedure, surgical site, and laterality Entry 1 Procedure(s) LUMBAR RADIO FREQUENCY Patient Identity Birthday, ID Band ABLATION(Bilateral) Verified (select at Check, Patient least 2): Participation Consents / H and P H&P, Surgery/Procedure Operative Site Present Verified Consent Marking Verified Surgical Site Yes Laterality Verified Yes Verified Procedure Verified Yes Correct Patient Yes Position Verified Availability Equipment, Medication, Prep Dry Yes Verified (If X-ray Applicable) PreOp Antibiotic No Time Out Brittani Whitley RN, Given Participants Angelica VILLEDA, Mariah Artis DO, Bradford A., Harvey RN, Michelle Tsang Bryce Time Out Complete 09/10/24 08:12:00 Outcomes Met? Yes Last Modified By: Brittani Whitley RN 09/10/24 08:15:57 Post-Care Text: The patient is free from signs and symptoms of injury caused by extraneous objects Allergy Information FTPM Pre-Care Text: Verifies allergies Entry 1 Allergies Reviewed? Yes Allergies Reviewed Self/Patient With Outcomes Met? Yes Last Modified By: Brittani Whitley RN 09/10/24 07:47:27 Post-Care Text: The patient received appropriate medication(s) safely administered during the perioperative period Surgical Procedures FTPM Entry 1 Procedure Description Procedure LUMBAR RADIO FREQUENCY Modifiers Bilateral ABLATION Surgeon Description MB RFA COVERING THE L4-S1 FACET JTS Primary Procedure Yes Primary Surgeon Kamaljit May DO Start 09/10/24 08:15:00 Stop 09/10/24 08:33:00 Anesthesia Type MAC Surgical Service Pain Management Wound Class 1 - Clean Last Modified By: Brittani Whitley RN 09/10/24 08:33:24 General Case Data FTPM Pre-Care Text: Classifies surgical wound, implements aseptic technique, initiates traffic control Entry 1 Case Information OR Pain Proc Room Case Level Level 2 Wound Class 1 - Clean Specialty Pain Management Preop Diagnosis M47.816 Postop Same As Preop Yes Postop Diagnosis M47.816 Outcomes Met? Yes Last Modified By: Brittani Whitley RN 09/10/24 08:16:08 Post-Care Text: The patient is free from signs and symptoms of infection Skin Assessment (Pre Procedure) FTPM Pre-Care Text: Implements protective measures to prevent skin/ tissue injury due to thermal or mechanical sources Evaluates for signs and symptoms of physical injury to skin and tissue Entry 1 Skin Integrity Intact, Apex, Warm, & Skin Abnormality No Dry Outcomes Met? Yes Last Modified By: Brittani Whitley RN 09/10/24 07:47:35 Post-Care Text: The patient is free from signs and symptoms of injury caused by extraneous objects Patient Positioning FTPM Pre-Care Text: Identifies physical alterations that require additional precautions for procedure-specific positioning, verifies presence of prosthetics or corrective devices, positions the patient, evaluates the patient for signs and symptoms of injury as a result of positioning Entry 1 Procedure LUMBAR RADIO FREQUENCY Body Position Prone ABLATION(Bilateral) Feet Uncrossed? Yes Left Arm Position Resting at Side (more content not included)...[facility] HospitalMain OR Preoperative Recordon 84-41-1585Xyqg OR Preoperative RecordMain OR Preoperative Record Holding Area Document Type FTPM Summary Primary Physician: Kamaljit May DO Finalized Date/Time: 09/10/24 07:26:04 Pt. Name: MICHELLE RIVERA/Sex: 1985 Female Med Rec #: [id number] Physician: Kamaljit May DO Financial #: [id number] Pt. Type: P Room/Bed: / Admit/Disch: 09/10/24 07:07:50 - Institution: Case Times Holding FTPM Pre-Care Text: Verifies consent for planned procedure, identifies individual values and wishes concerning care, includes family members in perioperative teaching Secures patient's records' belongings, and valuables, maintains patient's dignity and privacy, and maintains patient confidentiality Entry 1 In Holding 09/10/24 07:23:00 Outcomes Met? Yes Last Modified By: Belle Vargas RN 09/10/24 07:23:37 Post-Care Text: The patient participates in decisions affecting his or her perioperative plan of care The patient'sright to privacy is maintained Surgery Checklist FTPM Entry 1 Patient Birthday, ID Band Procedure History and Physical, Identification: Check, Patient Verification: Surgical Consent, With Participation Patient NPO after Midnight: Yes Personal Items: Glasses, Jewelry Personal Items nose ring Complaints of Pain: Yes Comment: Pain Comment: 03/11 low back Operative Site Yes Marking: Marked By: mariah Location: lumbar Availability Equipment, X-Ray Verified: Does Patient Smoke No Patient states Yes Case Cancelled in No postop adult Holding Area see supervision comments below for available reason Last Modified By: Belle Vargas RN 09/10/24 07:25:59 Finalized By: Belle Vargas RN Document Signatures Signed By: Belle Vargas RN 09/10/24 07:26NoTriHealthOperative Report on [id number] ReportOperative Report Diagnosis: M47.816, bilateral lumbar spondyloarthropathy Procedure: Bilateral lumbar medial branches/posterior rami radiofrequency ablation to target the facet joints of L4/5 and L5/S1 Anesthesia: Local Complications: None After informed consent was obtained, the patient was brought to the procedure room and placed in the prone position. The back area is prepped and draped in usual sterile fashion. The patient was placed on monitors. Using fluoroscopic guidance skin and subcutaneous tissue overlying needle trajectories to the target sites were anesthetized with 2% lidocaine. 20-gauge radiofrequency needles were advanced under fluoroscopic guidance to the appropriate anatomic landmarks. Needle tip position was confirmed on both sides in both the AP and lateral views. Next, all levels on the right were stimulatedat 2Hz for motor stimulation at 2.0V with no lower extremity motor contractions. Next 1.0mL of 2.0%lidocaine was injected through each needle tip. Thereafter, radiofrequency lesioning was carried out at 80 degrees for 80 seconds twice. Next, all levels on the left were stimulated at 2Hz for motor stimulation at 2.0V with no lower extremity motor contractions. Next 1.0mL of 2.0% lidocaine was injected through each needle tip. Thereafter, radiofrequency lesioning was carried out at 80 degrees for 80 seconds twice. The needles were removed. The patient was then transferred to the recovery room in stable condition. Postprocedure lower extremity strength 5/5 bilaterally in hip flexors, quads, hamstrings, plantarflexion/dorsiflexion/FHL/EHL. Follow-up: Discharge instructions provided. The patient agrees to continue currently prescribed/recommended therapies.[facility] HospitalComment on above:Result Comment: Electronically Signed By: Kamaljit May DO\Date and Time Signed: 09/10/24 08:36 ESTInsertion/Removal of Contraceptive Capsuleon 70-60-2175SybhuMarcelina Khan LPN 07/29/2024 10:35 AM Insertion/Removal of Contraceptive Capsule Date/Time: 07/28/2024 3:04 PM Performed by: Kirby Heredia DO Authorized by: Kirby Heredia DO Consent: Consent obtained: Written Consent given by: Patient Patient questions answered: yes Patient agrees, verbalizes understanding, and wants to proceed: yes Educational handouts given: yes Instructions and paperwork completed: yes Indication: Indication: Presence of non-biodegradable drug delivery implant Pre-procedure: Local anesthetic: Lidocaine without epinephrine The site was cleaned and prepped in a sterile fashion: yes Procedure: Procedure: Removal Small stab incision was made in arm: yes Left/right: Left Preloaded contraceptive capsule trocar was placed subdermally: no Visualization of implant was obtained: yes Contraceptive capsule was inserted and trocar removed: no Visualization of notch in stylet and palpation of device: no Palpation confirms placement by provider and patient: no Site was closed with steri-strips and pressure bandage applied: no Comments: Nexplanon Removal: Patient presents today for removal of Nexplanon. Written consent for procedure was obtained and patient was placed in supine position with left arm flexed at elbow. Skin was cleansed with alcohol/Betadine and 2cc of Lidocaine was injected underneath palpated Nexplanon at distal end. After allowing for sufficient time for numbing agent to take effect, the skin overlying the end of Nexplanon was incised with an 11inch blade scalpel. A 7.5in hemostat was inserted in the incision site to grab device and Nexplanon was released from tissue. Nexplanon implant was removed in its entirety and visualized by myself and patient. The skin was cleansed with alcohol and the incision was covered with gauze. Post-procedure care was reviewed and patient will continue with proposed plan of care. Patient was advised to call office with any questions or concerns. Follow Up: Patient is to return to the office as needed for any routine appointments.[facility]Non[facility] Note - PTon [id number] Note - PT Nonvisit Note - PT Chart reviewed with eval prepped for scheduled eval. [facility] [id number] From: Specker, Bailey M To: EU - Administrative; Sent: 07/16/2024 14:03:47 EST Show up: 07/16/2024 14:03:00 EST Subject: Ambulatory Reminder Due Date/Time: 09/16/2024 14:03:00 EST Reminder/Recall Patient needs scheduled for a 2-3m f/u with AMBROSIO Called to schedule; pt said she would have to call back and schedule after checking to see if she could make an appt - she needed after 4pm and I explained we don't schedule patients that late. She will call back.[facility] HospitalUrology Office/Clinic Noteon [id number] Office/Clinic Note Urology Office/Clinic Note Chief Complaint stress incontinece HPI Staff 39 year old female referred by Dr. Heredia for EYAL. Pt states she has had EYAL for years but it has progressively gotten worse. States it has hindered her work out routine. Dysuria: denies Incomplete bladder emptying: pt doesn't feel like she is always emptying Hematuria: isn't sure bc she has heavy/irregular periods. having partial hyst in 2 days. Frequency: every hour during the day Urgency: yes Nocturia: 2-3x for years Stream: no straining but will reposition to get everything out Leaking: sometimes Post void dripping: denies Wearing pads/ Depends: wears pads and has to change 3-4x Urge incontinence: denies Stress incontinence: yes severe Incontinence without Sensory Awareness: denies Abdominal pain: denies Flank pain: denies Sexual complaints: denies Review of Systems PHQ Score Initial Depression Screen Score: 0 SCORE no fever, chills, malaise, myalgia. no rash/lesions. no chest pain, palpitations, or SOB. no abdominal pain, nausea, vomiting. no unilateral calf swelling, redness, pain Physical Exam Vitals & Measurements T: 37 ???C(Temporal Artery) HR: 79(Peripheral) RR: 18 BP: 137/88 HT: 65 in HT: 165 cm WT: 66 kg WT: 145.505 lb BMI: 24.24 General: nontoxic, NAD Mouth: moist mucosa Lungs: normal respiratory effort Cardio: regular rate, good distal perfusion Abdomen: nondistended, no suprapubic distention or tenderness, no CVA tenderness Neurologic: Grossly normal Skin: No rashes or suspicious lesions Assessment/Plan 1. OAB (overactive bladder) (N32.81: Overactive bladder) q1h during day, moderate-severe urgency. nocturia x2-3. UUI a few times per month. Discussed tx options for bothersome urinary sx including oral medications, Botox, SNM. Medication management includes anticholinergics and beta-3 agonists. Beta-3's (Myrbetriq/Gemtesa) are often preferable due to lower side effect profile, but most insurances won't cover without tryinganticholinergics first. However, pt has chronic constipation and dry mouth at baseline, so she is not a good candidate for anticholinergics. Therefore we will start with Beta-3s. Will send rx for Myrbetirq and Gemtesa, pt will fill whichever is covered/cheaper. If fails Beta-3 we cannot get it covered, or we get it covered but it's a cost- prohibitive co-pay then we will consider next steps which could include cysto, urodynamics, Botox, SNM. Ordered: [facility] Evaluate Patient, Develop a Plan of Care, & Implement Plan 2. Stress incontinence (N39.3: Stress incontinence (female) (male)) EYAL>UUI. Changes pads 3-4x per day. I went over the options for treatment with the patient. We discussed conservative treatment with pelvic floor exercises with or without a physical therapist. Definitive treatment including urethral bulking agents and mid-urethral sling were discussed as these are options offered by my colleagues. Details of each procedure, success rates, recovery/downtimeexpectations, and risks were discussed at length. Based on the above discussion the patient would like referral for PFPT. Ordered: [facility] Evaluate Patient, Develop a Plan of Care, & Implement Plan 3. Microhematuria (R31.29: Other microscopic hematuria) Pt reports irregular vaginal bleeding as well as blood per rectum. UA does show sm microhematuria today but could be from either of those sources. Denies gross hematuria. Scheduled for ovary/tube removal and uterine ablation tomorrow w Dr Heredia due to pain/abnl bleeding. She stated if ablation fails he will go back in for full hyst. Also referred to GI due to rectal bleeding. Will hold off on hematuria eval at this time and continue to monitor if blood persists after SURFACE WATER MANAGER/GIeval/tx. Orders: mirabegron, 25 mg = 1 tab(s), Oral, Daily, X 30 day(s), # 30 tab(s), Refills(s) 11, Pharmacy: [facility], 165, cm, 07/20/24 10:51:00 EST, Height/Length Dosing, 69, kg, 07/20/24 10:51:00 EST, Weight Dosing vibegron, 75 mg = 1 tab(s), Oral, Daily, X 30 day(s), # 30 tab(s), Refills(s) 11, Pharmacy: [facility], 165, cm, 07/20/24 10:51:00 EST, Height/Length Dosing, 69, kg, 07/20/24 10:51:00 EST, Weight Dosing Follow-up With When Contact Information HARDY BARR PA-C, URL Within 3 months [address] [place] [address] Additional Instructions: Patient Education Overactive Bladder, Adult Problem List/Past Medical History Ongoing Acid reflux Anxiety with depression Asthma Back spasm Fibromyalgia Polina's disease Heart murmur Herpes simplex History of degenerative disc disease Hypertension Hypothyroidism Microhematuria OAB (overactive bladder) Sleep apnea Historical No qualifying data Procedure/Surgical History Partial hysterectomy (07/17/2024), Gastric bypass (11/28/2022), Adenoidectomy, Tonsillectomy. Medications calcium (as carbonate)-vitam (more content not included)...Mercy HospitalComment on above:Result Comment: Electronically Signed By: HARDY BARR PA-C\.br\Date and Time Signed: 07/20/2415:15 ESTALL CBC WITH AUTO DIFFon 19-53-9764NDVAGTQAU ABSOLUTE ILEE8SCPS HealthcareBasophils/100 WBC (Bld) 0.6 %0.2 - 2.0 %NOMS HealthcareEosinophils/100 WBC (Bld)1.3 %0.9 - 7.0 %NOMS HealthcareErythrocyte distribution width (RBC) [Ratio]12.4 %11.0 - 15.0 %NOMS HealthcareHematocrit (Bld) [Volume fraction]34.8 %Low36.0 - 48.0 %[facility] CenterHemoglobin (Bld) [Mass/Vol]11.3 g/dLLow12.0 - 16.0 g/dLUniversity Health Lakewood Medical Center IMMATURE GRANULOCYTES ABS AUTO0.01NOSSM Health Cardinal Glenn[facility] Children's HospitalImmature granulocytes/100 WBC (Bld)0.2 %0.0 - 0.5 %[facility] Medical CenterInterpretation and review of laboratory resultsAbnormalUniversity Health Lakewood Medical CenterLYMPHOCYTES ABSOLUTE AUTO1.7NOMS [facility] Lymphocytes/100 WBC (Bld)35.7 %20.5 - 60.0 %[facility] CenterH (RBC) [Entitic mass]29.1 pg26.7 - 34.0 pgNevada Regional Medical CenterHC (RBC) [Mass/Vol]32.5 g/dL29.9 - 35.2 g/dLNevada Regional Medical CenterV (RBC) [Entitic vol]89.7 fL81.0 - 99.0 fLUniversity Health Lakewood Medical CenterMONOCYTES ABSOLUTE AUTO0.5NOSSM Health Cardinal [facility] Children's HospitalMonocytes/100 WBC (Bld)9.4 % 1.7 - 12.0 %[facility] CenterNEUTROPHILS ABSOLUTE AUTO2.5NOMS [facility] Neutrophils/100 WBC (Bld)52.8 %43.0 - 75.0 %[facility] Medical CenterPlatelet mean volume (Bld) [Entitic vol]9.6 fL9.5 - 13.5 fLUniversity Health Lakewood Medical CenterTB EO #0.1NOMS [facility] [id number] [facility] RBC3.88LowNOMS [facility] WBC4.8NOSSM [facility] CLINISYNCUniversity Health Lakewood Medical CenterLon 07-17-2024L Specimen: [id number] Received: 07/17/24778 Status: CALLY Joy Num: [id number] Spec Type: Surgical Subm Dr: Kirby Heredia Tissues: A Fallopian Tube - Sterilization (BILAT FAL TUBES) Procedures: HE/2, Gross/Micro L2 Age/ Patient Sex Location Account Attending Physician Michelle Rivera 39/F [place] [id number] Kirby Heredia SPEC NUM: [id number] RECD: 07/17/24 STATUS: CALLY JOY NUM: [id number] HUMBLE: 07/17/[address] [facility] [address]: Kirby Heredia ENTERED: 07/17/24 [facility] DR: Moon,Lab SPEC TYPE: Surgical DEPT: [facility] ENTERED BY: [id number] RECV BY: [id number] ORDERED: HE/2, Gross/Micro L2 ORDERED: HE/2, Gross/Micro L2 Pathological Diagnosis Bilateral fallopian tubes, resection: No significant pathologic abnormality. Clinical Information Request for sterilization, menorrhagia, abnormal uterine bleeding, pelvic pain Gross Description Part A is received in formalin labeled with the patients name, date of , and bilateral fallopian tubes are bilateral, unoriented fallopian tubes with fimbriated distal ends, 8 x 0.8 cm, and 7 x 0.8 cm. The serosa is matos-purple, smooth and glistening. Serial sections reveal pinpoint lumen within each segment. Tie Worker sections are submitted. Cassettes: A1 Entirety of trisected fimbriated and and primary care sales representative cross-sections of shorter tube A2 Entirety of trisected fimbriated end and primary care sales representative cross-sections of longer tube (2, ss, KT65-158M) CPT Codes 77809 Specimen: [id number] Received: 07/17/24 Status: CALLY Joy Num: [id number] Spec Type: Surgical Subm Dr: Kirby Heredia Tissues: A Fallopian Tube - Sterilization (BILAT FAL TUBES) Procedures: HE/Titi Ritchie/Fernando L2 Patient: Michelle Rivera [id number] (Continued) Signed (signature on file) Kinga Malone MD 07/20/24 1619[facility] Physician GroupTB PREG QUANT HCGon 07-17-2024 HCG QUANTITATIVE<1mIU/mLNOMS HealthcareComment on above:5-50 0.2-1 WEEK 50-500 1-2 WEEKS 100-5,000 2-3 WEEKS 500-10,000 3-4 WEEKS 1,000-50,000 4-5 WEEKS 10,000-100,000 5-6 WEEKS 15,000-200,000 6-8 WEEKS 10,000-100,000 2-3 MONTHS CLINISYNCNOMS HealthcareAmbulatory Visit Summaryon 37-48-9531Kysppvnrnr Visit SummaryAmbulatory Visit Summary MICHELLE RIVERA :1985 Visit Date:07/16/2024 Ambulatory Visit Instructions Your Diagnosis Stress incontinence Your Care Team Attending Physician - HARDY BARR PA-C Primary Care Physician - NONE, XXXX Referring Physician - Kirby HEREDIA DO This Is Your Medications List calcium-vitamin D (calcium (as carbonate)-vitamin D 90 mg-25 mcg (1000 intl units) oral tablet) multivitamin (Vitamin B Complex 100 injectable solution) multivitamin, (Vitafusion ) tizanidine (Zanaflex 4 mg Tab) zinc sulfate (Zinc) Procedures Performed Adenoidectomy, Gastric bypass, Tonsillectomy. Discharge Vitals Temperature (Temporal Artery) 37 ???C Heart Rate (Peripheral) 79 Respiratory Rate 18 Blood Pressure 137/88 Height 165 cm Height 65 in Weight 66 kg Weight 145.505 lb BMI 24.24 What to do next Scheduled Follow-Up Appointments Saturday 10:45 AM EST With: Amy Durbin PA-C Where: [facility] Medications What How Much When Instructions Unchanged calcium-vitamin D (calcium (as carbonate)-vitamin D 90 mg-25 mcg (1000 intl units) oral tablet) See instructions Unchanged multivitamin (Vitamin B Complex 100 injectable solution) See instructions Unchanged multivitamin, (Vitafusion ) 2 Tablets Chewed Every day Unchanged tizanidine (Zanaflex 4 mg Tab) 1 Tablets By Mouth Every 8 hours Unchanged zinc sulfate (Zinc) See instructions Allergies penicillin (Unknown) sulfa drugs (Unknown) Problems Ongoing - Any problem that you are currently receiving treatment for. Anxiety with depression Back spasm Fibromyalgia Polina's disease Herpes simplex History of degenerative disc disease Hypothyroidism Patient Survey You may receive a survey via text or e-mail asking about your office visit. Please share your experience with us by completing your survey. We appreciate your feedback and thank you for choosing us for your care. Mercy HospitalIGP,APTIMA HPV,AGE GDLNon 04-97-1453FFD GDLN ACOG TESTINGNote.NOMS HealthcareComment on above:TESTS RESULT FLAG UNITS REF RANGE LAB Clinician Provided Cytology Information Source.............Cervix;Endocervix No. of containers..01 ThinPrep Vial Age Algo ACOG Savanah... FLAG LEGEND: L-Low Normal,H-High Normal,LL-Alert Low,HH-Alert High <-Panic Low,>-Panic High,A-Abnormal,AA-Critical Abnormal Performed at: 01 =G [facility] [address] [place] [address] Cyn Rodriguez MD, HPV APTIMANegativeNegativeNOMS HealthcareComment on above:This nucleic acid amplification test detects fourteen high- risk HPV types (16,18,31,33,35,39,45,51,52,56,58,59,66,68) without differentiation. Performed at: = - [facility] [id number] Commercial Assistant: Cyn Rodriguez MD, Phone: [phone] Performed at: - [facility] [id number] Commercial Assistant: Cyn Rodriguez MD, Phone: [phone] IGP, APTIMA HPV, RFX 16/18,45Note.NOMS HealthcareComment on above:TESTS RESULT FLAG UNITS REF RANGE LAB DIAGNOSIS: 02 NEGATIVE FOR INTRAEPITHELIAL LESION OR MALIGNANCY. Specimen adequacy: 02 Satisfactory for evaluation. Endocervical and/or squamous metaplastic cells (endocervical component) are present. Performed by: Kathy Vizcaino, Loading Machine Operator Helper (ASCP) . 02 Note: Note 02 The Pap smear is a screening test designed to aid in the detection of premalignant and malignant conditions of the uterine cervix. It is not a diagnostic procedure and should not be used as the sole means of detecting cervical cancer. Both false-positive and false-negative reports do occur. Test Methodology: Note 02 This liquid based ThinPrep(R) pap test was screened with the use of an image guided system. HPV Genotype Reflex Note 02 Criteria not met, HPV Genotype not performed. FLAG LEGEND: L-Low Normal,H-High Normal,LL-Alert Low,HH-Alert High <-Panic Low,>-Panic High,A-Abnormal,AA-Critical Abnormal Performed at: 02 [facility] [address] [place] [address] Cyn Rodriguez MD, BRUSH-SPATULA CERVIX ENDOCERVIX CLINISYNCNOMS HealthcareUS PELVIS W/ TRANSVAGINALon 04-81-0595[place] [address] Ultrasound Report Signed Patient: MICHELLE RIVERA MR#: [id number] : 1985 Acct:[id number] Age/Sex: 39 / F ADM Date: 07/09/24 Loc: [facility] Attending Dr: Kirby Heredia D.O. Ordering Physician: Kirby Heredia D.O. Date of Service: 07/09/24 Procedure(s): US pelvis w/ transvaginal Accession Number(s): [id number] cc: Kirby Heredia D.O.; Physician,Non-Staff K[facility] The [address] [address] Patient Name: MICHELLE RIVERA MRN: [id number] date: 1985 Sex: F Assigned Patient Location: [facility] Current Patient Location: Accession/Order Number: [id number] Exam Date: 07/09/2024 09:32 Report Date: 07/10/2024 06:32 At the request of: KIRBY HEREDIA Procedure: US pelvis w/ transvaginal EXAMINATION: US pelvis w/ transvaginal HISTORY: MENORRHEA, PELVIC PAIN COMPARISON: Ultrasound pelvis 07/18/2023 TECHNIQUE: Transabdominal and/or transvaginal sonographic examination was performed as indicated by examination type. FINDINGS: UTERUS: Heterogeneous echotexture without appreciable mass. Nabothian cysts within cervix. Uterus size: 9.9 x 4.3 x 5.7 cm ENDOMETRIUM: Normal homogeneous appearance. Endometrial thickness: 4 mm RIGHT OVARY: Normal size and appearance. Duplex Doppler demonstrates normal waveform and flow; resistive index 0.6. Ovary size: 4.8 x 2.9 x 4.1 cm LEFT OVARY: Contains a prominent follicle/cyst and a nonspecific slightly irregular hyperechoic structure 1.2 x 0.8 x 0.7 cm. No suspicious vascularity. Duplex Doppler demonstrates normal waveform and flow; resistive index 0.5. Ovary size: 3.5 x 2.1 x 2.5 cm CUL-DE-SAC: Unremarkable. No significant free fluid. BLADDER: Unremarkable. OTHER: None. US/US pelvis w/ transvaginal IMPRESSION: 1. Heterogeneous uterine endometrium and incidental nabothian cysts within cervix. 2. Prominent follicle and adjacent irregular hyperechoic structure, possibly a collapsing/collapsed cyst. Consider follow-up ultrasound evaluation in 6 weeks to document clearing. Electronically authenticated by: RUSTY MORALES Date: 07/10/2024 06:32 Dictated By: Rusty Morales M.D. Signed By: 07/10/2435 DD/ TD/TT: Sales Office Manager:TBHRadiology, Radiologist, MD - 07/10/2024 [place] [address] Ultrasound Report Signed Patient: MICHELLE RIVERA MR#: [id number] : 1985 Acct:[id number] Age/Sex: 39 / F ADM Date: 07/09/24 Loc: [facility] Attending Dr: Kirby Heredia D.O. Ordering Physician: Kirby Heredia D.O. Date of Service: 07/09/24 Procedure(s): US pelvis w/ transvaginal Accession Number(s): [id number] cc: Kirby Heredia D.O.; Physician,Non-Staff MMiguel A The [place] [id number] Patient Name: MICHELLE RIVERA MRN: [id number] date: 1985 Sex: F Assigned Patient Location: [facility] Current Patient Location: Accession/Order Number: [id number] Exam Date: 07/09/2024 09:32 Report Date: 07/10/2024 06:32 At the request of: KIRBY HEREDIA Procedure: US pelvis w/ transvaginal EXAMINATION: US pelvis w/ transvaginal HISTORY: MENORRHEA, PELVIC PAIN COMPARISON: Ultrasound pelvis 07/18/2023 TECHNIQUE: Transabdominal and/or transvaginal sonographic examination was performed as indicated by examination type. FINDINGS: UTERUS: Heterogeneous echotexture without appreciable mass. Nabothian cysts within cervix. Uterus size: 9.9 x 4.3 x 5.7 cm ENDOMETRIUM: Normal homogeneous appearance. Endometrial thickness: 4 mm RIGHT OVARY: Normal size and appearance. Duplex Doppler demonstrates normal waveform and flow; resistive index 0.6. Ovary size: 4.8 x 2.9 x 4.1 cm LEFT OVARY: Contains a prominent follicle/cyst and a nonspecific slightly irregular hyperechoic structure 1.2 x 0.8 x 0.7 cm. No suspicious vascularity. Duplex Doppler demonstrates normal waveform and flow; resistive index 0.5. Ovary size: 3.5 x 2.1 x 2.5 cm CUL-DE-SAC: Unremarkable. No significant free fluid. BLADDER: Unremarkable. OTHER: None. US/US pelvis w/ transvaginal IMPRESSION: 1. Heterogeneous uterine endometrium and incidental nabothian cysts within cervix. 2. Prominent follicle and adjacent irregular hyperechoic structure, possibly a collapsing/collapsed cyst. Consider follow-up ultrasound evaluation in 6 weeks to document clearing. Electronically authenticated by: RUSTY MORALES Date: 07/10/2024 06:32 Dictated By: Rusty Morales M.D. Signed By: 07/10/2435 DD/ TD/TT: Sales Office Manager: [facility] HOMEJack HealthcareRadiology Study observation (narrative)[facility] CenterUS PELVIS W/ TRANSVAGINALOrdered By: Radiologist Radiology on 96-38-2881UJNC [employer] Work Phone: HCG ( test) Ql (U)on 00-18-2854Lskmrujcvefsfa and review of laboratory resultsNormalNOSSM Health Cardinal Glennon Children's HospitalPreg Test, UrNegativeNOGundersen St Joseph's Hospital and ClinicsLon 22-88-5486RTsbvcglc: [id number] Received: 05/29/241348 Status: CALLY Joy Num: [id number] Spec Type: Surgical Subm Dr: Kirby Heredia Tissues: A Endometrium - Biopsy (EMBX) Procedures: HE/2, Gross/Micro L4 Age/ Patient Sex Location Account Attending Physician MiguelMichelle Avalos 39/F LABE[facility] [id number] Kirby Heredia SPEC NUM: [id number] RECD: 05/29/24 STATUS: ZHANGCandis GRACIAAlexa NUM: [id number] HUMBLE: 05/28/24- SUBM DR: Kirby Heredia ENTERED: 05/29/24-0 [facility] DR: Moon,Lab SPEC TYPE: Surgical DEPT: [facility]ET[facility] ENTERED BY: [id number] RECV BY: [id number] ORDERED: HE/2, Gross/Micro L4 ORDERED: HE/2, Gross/Micro [...] is entirely submitted in cassette A1. Specimen: [id number] Received: 05/29/24 Status: CALLY Oscar Num: [id number] Spec Type: Surgical Subm Dr: Kirby Heredia Tissues: A Endometrium - Biopsy (EMBX) Procedures: HE/2, Gross/Micro L4 Patient: Michelle Rivera [id number] (Continued) Specimen: [id number] Received: 05/29/24 (Continued) Signed (signature on file) Eloy Nguyen MD 06/01/24 1626 Specimen: [id number] Received: 05/29/24 Status: CALLY Joy Num: [id number] Spec Type: Surgical Subm Dr: Kirby Heredia Tissues: A Endometrium - Biopsy (EMBX) Procedures: HE/2, Gross/Micro L4 Patient: Michelle Rivera [id number] (Continued) Specimen: [id number] Received: 05/29/24 (Continued) Microscopic Description Microscopic examinations are performed supporting the above interpretation CPT Codes 05830 Specimen: [id number] Received: 05/29/24 Status: CALLY Joy Num: [id number] Spec Type: Surgical Subm Dr: Kirby Heredia Tissues: A Endometrium - Biopsy (EMBX) Procedures: HE/2, Gross/Micro L4 Patient: Michelle Rivera [id number] (Continued) Signed (signature on file) Francisco-Sandor Nguyen MD 06/01/[address] [place] [address] Physician GroupMLR HEMOGLOBIN A1Con 20-13-0249Lspopyx [Mass/Vol]105 mg/dLNOMS NrlvuvgtqdCuN9e (Bld) [Mass fraction]5.3 %4.5 - 6.2 % NOMS HealthcareComment on above:ADA RECOMMENDED LIMIT 4.0 - 6.0 ADA THERAPEUTIC TARGET < 7.0 ACTION SUGGESTED > 7.0 CLINISYNCNOMS HealthcareUrinalysis macro (dipstick) panel (U)on 05-14-2024 Bilirubin, UANegativeNegative - 4(70) +++ mg/dLNOMS HealthcareBlood, UAPositive Negative - 50 Tanmay/mcLNOMS HealthcareComment on above:trace-intactClarity, UA ClearNOMS HealthcareColor, UAYellowNOMS HealthcareGlucose, UANegativeNegative - 1999(110) ++++ mg/dLNOMS HealthcareInterpretation and review of laboratory resultsAbnormalNOMS HealthcareKetones, UANegativeNegative - 160(16) ++++ mg/dL NOMS HealthcareLeukocytes, UANegativeNegative - 500+++ Clarence/mcLNOMS Healthcare Nitrite, UANegativeNegative - PositiveNOMS HealthcarepH, UA7.05 - 9NOMS HealthcareProtein, UANegativeNegative - 2000(20) ++++ mg/dLNOMS HealthcareSpec Grav, UA1.0151 - 1.03NOMS HealthcareUrobilinogen, UA0.20.2 - 12 mg/dLNOMS HealthcareNOMS HealthcareXR hip RT min 2V(w/wo pelvis)*on 64-37-9828US hip RT min 2V(w/wo pelvis)*[facility] Main [address] [address] XRay Report Signed Patient: Michelle Rivera MR#: [id number] : 1985 Acct:[id number] Age/Sex: 38 / F ADM Date: 11/14/23 [place] [facility] [place]: Type: [facility] CLI Attending Dr: Ed Malhotra MD Copies to: [...] Gordo Escalante M.D.11/14/2023 2:25 PM Dictation Location: [place] [address] Transcribed By: [facility] 11/14/23 1425 Dictated By: Gordo Escalante II, MD 11/14/23 142 Signed By: 11/14/23 1425[facility] Physician GroupXR lumbar spine AP/LAT/FLX/EXTon 03-53-6332JO lumbar spine AP/LAT/FLX/EXTCLEVELAND CLINIC FOUNDATION Main [place] [address] [place], [place] [id number] XRay Report Signed Patient: Michelle Rivera MR#: [id number] : 1985 Acct:[id number] Age/Sex: 38 / F ADM Date: 11/14/23 [place] [facility] [place]: Type: [facility] CLI Attending Dr: Ed Malhotra MD Copies to: [...] Gordo Escalante M.D.11/14/2023 2:23 PM Dictation Location: [place] [address] Transcribed By: [facility] 11/14/23 1423 Dictated By: Gordo Escalante II, MD 11/14/23 1421 Signed By: 11/14/23 1423[facility] Physician GroupInfluenza virus B Ag [Presence] in Upper respiratory specimen by Rapid immunoassayon 92-88-0248ZKPBQ Ag IA.rapid Ql (Nph)NegativeSelect Medical Specialty Hospital - CantonNo Panel Informationon 63-95-2632Bvhuiadfu Type A (Rapid)NegativeSelect Medical Specialty Hospital - CantonPO SARS CoV-2 AntigenNegativeSelect Medical Specialty Hospital - CantonNo Panel Information Ordered By: Lissa Gifford on 18-41-8389Pgunq Strep (POC)[facility] - CantonCNPNon 37-32-0204JAJWAxchhxjjn (ORAVON) MICHELLE RIVERA ([id number]) 1985 F Date Time Provider Department 07/05/23 FRANK NEGRON During your visit today, we recorded the following information about you: Yamile Chaney 07/05/2023 3:37 PM Signed I have tried to reach patient multiple times. Phone goes to [employer]. I sent 2 my chart messages. I had a spot on hold for 07/15 for quite awhile. I had to remove the hold to offer to another patient. Yamile Martini Allergies As of Date: 07/05/2023 Noted Allergy [...] right elbow [M77.11] 02/22/2023 Encounter Status:Closed by YEISON MARTINIKENNYI on [facility]/05/23[facility] Cervical or vaginal smear or scraping studyon 84-02-7779DGVJ HealthcareCNOVon 61-69-2813GPNUJnoqdt Visit (ORAVON) MICHELLE RIVERA ([id number]) 1985 F Date Time Provider Department 05/03/23 9:45 AM FRANK NEGRON During your visit today, we recorded the following information about you: Weight Height 77.6 kg 1.664 m Frank Negron DO 05/03/2023 10:17 AM Signed Lateral epicondylitis of right elbow (primary encounter diagnosis) Minimally Invasive Tenotomy Informed Consent Consent Obtained: Written Blossom Protocol A moment to CARE was completed. [...] Jason A, DO 05/03/2023 9:51 AM Signed [facility] POST-PROCEDURE INSTRUCTIONS 1. WOUND CARE - Keep [...] Best way to connect would be via [employer] or directly call Yamile at [phone]. If unable to connect, please proceed to [...] Thank you for choosing the [facility] Medical Orthopedic team for your care. Frank Negron D.O. Sports AND Medical Orthopaedics [place] (more content not included)...NormalSt. [facility] ELBOW RT (POC) HAYDEE USE ONLYon 83-06-7416Tzyudlopd ClinicCNTHERAPYon 32-54-4990TZSRIOLZC OT/PT/Speech Visit (CHRISTINA) MICHELLE RIVERA ([id number]) 1985 F Date Time Provider Department 03/21/23 8:00 AM MARCELINA MCMANUS Date Time Provider Department Center 03/21/2023 8:00 AM [id number] MCMANUS Reason for Visit: OT Discharge [750] [...] Take 40 mg by mouth once daily. NormalJoint Township District Memorial HospitalCNTHERAPYon 09-59-3914XDCICYTBFCZ/PT/Speech Visit (LOOTRM) MIGUELMICHELLE ([id number]) 1985 F Date Time Provider Department 03/07/23 11:00 AM ESTEPHANIA WHITT Date Time Provider Department [place] 03/07/2023 11:00 AM [id number] WHITT Reason for Visit: Occupational Therapy [504] [...] 40 mg by mouth once daily. Letter [facility] HospitalHERAPYon 14-95-3074MTWSDQVNW OT/PT/Speech Visit (LOOTRM) MIGUELMICHELLE ([id number]) 1985 Date Time Provider Department 03/01/23 8:00 AM ESTEPHANIA WHITT Date Time Provider Department [place] 03/01/2023 8:00 AM [id number]-JQKBCHHKGVESTEPHANIA WHITT Reason for Visit: Occupational Therapy [504] [...] 40 mg by mouth once daily. Letter TextAshtabula County Medical CenterHERAPYon 14-73-8102MVKRVWBFC OT/PT/Speech Visit (LOOTRM) MICHELLE RIVERA ([id number]) 1985 F Date Time Provider Department 02/22/23 9:30 AM ESTEPHANIA WHITT Date Time Provider Department [place] 02/22/2023 9:30 AM [id number] WHITT Reason for Visit: OT EVAL [748] [...] updated by Estephania Whitt, OTR/L on 02/22/2023 10:16 AM Annotated image of OT HAND EPICONDYLITIS LATERAL/MEDIAL PG 2 OF 4 last updated by Estephania Whitt, OTR/L on 02/22/2023 10:16 AM Annotated image of OT HAND EPICONDYLITIS LATERAL/MEDIAL PG 3 OF 4 last updated by Estephania Whitt OTR/L on 02/22/2023 10:16 AM Annotated image of OT HAND EPICONDYLITIS LATERAL/MEDIAL PG 4 OF 4 last updated by Estephania Whitt, OTR/L on 02/22/2023 10:16 AM Annotated image of OT HAND EPICONDYLITIS LATERAL/MEDIAL PG 1 OF 4 last updated by Estephania Whitt, OTR/L on 02/22/2023 10:[address] [facility]Nicci 27-93-9414DUHZHipxwd Visit (RAMÓN) MICHELLE RIVERA ([id number]) 1985 F Date Time Provider Department 02/14/23 11:15 AM FRANK NEGRON During your visit today, we recorded the following information about you: Frank Negron DO 02/14/2023 12:57 PM Signed [facility] Office Visit Documentation Note [facility] Sports Medicine Orthopaedic and Rheumatologic [place] REASON FOR VISIT / CHIEF COMPLAINT SERVICE DATE: February 14, 2023 PCP: Bernarda Pinto [facility] CHIEF COMPLAINT: Michelle Rivera is a [...] detailed above. Frank Negron D.O. [facility] Orthopaedic and Rheumatologic [place] Team Physician, [facility] Consulting Physician, [place] Lex[place] Reddy, Submarine Operator [phone] Allergies As of Date: 02/14/2023 Noted Allergy Reaction PENICILLINS 08/20/2022 4 - Hives SULFA (SULFONAMIDE ANTIBIOTICS) 08/20/2022 4 - Hives Date Reviewed: 02/14/2023 Reviewed by: Edy Agarwal MA - Fully Assessed Reason for Visit: Established Patient [175] Primary Visit Diagnosis:Right elbow pain [M25.521] Other Visit Diagnosis:Lateral epicondylitis of right elbow [M77.11] Order(s):US ELBOW RT (POC) HAYDEE USE ONLY [1655687] Order #: [id number]. #:[id number]: 1 methylPREDNISolone (MEDROL DOSE-PACK) 4 mg Dose-PackAs Instructed per packageDisp: 1 tabletRfl: 0 CONSULT TO MOLDER OFFBEARER [19990910] Order #: [id number]: 1 FUTURE Prescriptions as of 02/14/2023 - [...] Service: OFFICE/OUTPATIENT ESTABLISHED MOD MDM 30-39 MIN [73640] Encounter Status:Closed by FRANK ENGRON on 02/14/23[facility] ELBOW RT (POC) HAYDEE USE ONLYon 26-27-4449Fqavxiaio ClinicCNPNon 27-75-3695ETYNCvzbwewmq (ORQ) MICHELLE RIVERA ([id number]) 1985 F Date Time Provider Department 01/24/23 FRANK NEGRON ORQ During your visit today, we recorded the following information about you: Amy Elliott Pss 01/24/2023 10:32 AM Signed Pt requesting OT order for elbow pain. It is affecting her job. Pt would like to complete this with a facility in [place], [place]. Pt does not have the fax number but will try to get this and call us back. [place] OT phone [phone] Patient has been identified by name and birthdate. Duration of symptoms: N/A Person calling: self Call patient at: on cell [phone] (home) Was an appointment scheduled: No Closing statement: Results or non-symptom based questions: Thank you for calling [facility], your call will be returned within the [...] (None) Encounter Status:Closed by LESLY SHERMAN on 02/01/23[facility] HospitalMOISESOVnilam 00-89-7448CSEDKjprpi Visit (ORAVON) MICHELLE RIVERA ([id number]) 1985 F Date Time Provider Department 12/20/22 3:00 PM FRANK NEGRON During your visit today, we recorded the following information about you: Frank Negron DO 12/20/2022 12:52 PM Signed Right elbow pain (primary encounter diagnosis) Lateral epicondylitis of both elbows Biologics Injection: R elbow Previously completed treatments/injections: Platelet Rich Plasma Informed Consent Consent Obtained: Written Blossom Protocol A moment to CARE was completed. [...] Frank Negron DO Referring Provider: FRANK NEGRON [[id number]] Allergies As of Date: 12/20/2022 Noted Allergy Reaction PENICILLINS 08/20/2022 4 - Hives SULFA (SULFONAMIDE ANTIBIOTICS) 08/20/2022 4 - Hives Date Reviewed: 12/20/2022 Reviewed by: Edy Agarwal MA - Fully Assessed Reason for Visit: Established Patient [175] Primary Visit Diagnosis:Right elbow pain [M25.521] Other Visit Diagnosis:Lateral epicondylitis of both elbows [M77.11, M77.12] Order(s): ELBOW RT (POC) HAYDEE USE ONLY [6465544] Order #: [id number]: 1 acetaminophen-codeine (TYLENOL-CODEINE #3) 300-30 mg per tabletTake 1 tablet by mouth every 4 hours as needed for up to 5 days.Disp: 12 tabletRfl: 0 Biologics Injection: R elbow [ZLV137] Order #: [id number] [] lidocaine (PF) 10 mg/mL (1 %) [...] Inj-ORTHO Encounter Status:Closed by FRANK NEGRON on 12/20/22[facility] ELBOW RT (POC) HAYDEE USE ONLYon 92-57-4658Srlilxwih ClinicCNOVon 19-56-6688BDMHXytgue Visit (ORFWHP) MICHELLE RIVERA ([id number]) 1985 F Date Time Provider Department 12/04/22 10:00 AM FRANK NEGRON During your visit today, we recorded the following information about you: Frank Negron DO 12/04/2022 10:03 AM Signed [facility] Office Visit Documentation Note [facility] Sports Medicine Orthopaedic and Rheumatologic [place] HISTORY OF PRESENT ILLNESS (HPI) SERVICE DATE: [...] EXCEPT FOR MINIMAL LATERAL EPICONDYLAR ENTHESOPATHY BILATERALLY Sales Office Manager: SHAYNE Transcribe Date/Time: Jul 20 2022 10:34A ... Last MRI Elbow - Impression Only MRI ELBOW WO IVCON RT Exam End: 09/11/2022 11:27 AM (Final result) Impression: IMPRESSION: 1. Tendinosis and a small partial tear of the common extensor tendon origin. Sales Office Manager: SHAYNE Transcribe Date/Time: Sep 11 2022 11:42A... [...] treatment plan. Frank Negron D.O. [facility] Orthopaedic and Rheumatologic Geriatric Social Worker, [facility] AND T.[facility].[employer].[facility]. Program Team Physician, [facility] [employer] Consulting Physician, [place] Lexi Reddy, Submarine Operator [phone] Allergies As of Date: 12/04/2022 Noted Allergy [...] daily. - vits 4/ir (more content not included)...NormalFairview HospitalUS ELBOW LTon 14-16-0828GO ELBOW LT* * *Final Report* * * DATE OF [...] OF THE RADIAL COLLATERAL LIGAMENT, ALSO UNCHANGED. Sales Office Manager: [facility] Transcribe Date/Time: Nov 16 2022 11:03A Dictated by : SETH JAQUEZ MD This examination was interpreted and the report reviewed and electronically signed by: SETH JAQUEZ MD on Nov 16 2022 1:00PM EST [id number] Memorial HospitalOV 19-98-1029YRPC Office Visit (ORAVON) MICHELLE RIVERA ([id number]) 1985 F Date Time Provider Department 09/17/22 10:15 AM FRANK NEGRON During your visit today, we recorded the following information about you: Weight Height 117.9 kg 1.664 m Frank Negron DO 09/17/2022 10:48 AM Signed [facility] Office Visit Documentation Note [facility] Sports Medicine Orthopaedic and Rheumatologic [place] HISTORY OF PRESENT ILLNESS (HPI) SERVICE DATE: [...] EXCEPT FOR MINIMAL LATERAL EPICONDYLAR ENTHESOPATHY BILATERALLY Sales Office Manager: SHAYNE Transcribe Date/Time: Jul 20 2022 10:34A ... Last MRI Elbow - Impression Only MRI ELBOW WO IVCON RT Exam End: 09/11/2022 11:27 AM (Final result) Impression: IMPRESSION: 1. Tendinosis and a small partial tear of the common extensor tendon origin. Sales Office Manager: SHAYNE Transcribe Date/Time: Sep 11 2022 11:42A... ASSESSMENT / PLAN CLINICAL IMPRESSION / ASSESSMENT: CLINICAL IMPRESSION / ASSESSMENT: (M77.11, M77.12) Lateral epicondylitis of both elbows (primary encounter diagnosis) (M25.522) Left elbow pain (M25.521) Right elbow pain (M79.7) Fibromyalgia RECOMMENDATION / PLAN: Counseling / Referral A total of 20 minutes were spent kppc-uy-guml with the patient during this encounter and [...] include #1 bilateral PRP injections at $1500 amt-so-oyincm Option #2 bilateral minimally invasive percutaneous tendon [...] treatment plan. Frank Negron D.O. [facility] Orthopaedic and Rheumatologic Geriatric Social Worker, [facility] AND T.E.A.M. Program Team Physician, [facility] [employer] Consulting Physician, [place] Lex[place] Reddy, Submarine Operator [phone] Frank Negron DO 09/17/2022 10:35 AM Signed IMAGING AND LABORATORY Dr. Negron has requested further imaging to help coordinate your individualized plan of care. Most of these images will need to be appropriately scheduled. MRI/CT/Xray : Please stop at the front desk receptionist to coordinate timing and scheduling of your image. IF your image is completed outside of the [facility], two steps will need to be taken and presented to Dr. Negron's office for review. 1. Gather a CD copy of your image at the time of service. 2. Gather Radiology Report, when available. Reports can be faxed to [phone]. [facility] Ul[facility]ound : Please call [phone] to schedule your ultrasound appointment. LAB Requests: These can be completed at your nearest [facility] LAB facility. Please allow for up to one week for results to finalize. Follow up: You may request NurseGridhart release of your imaging at 3 DAYS after your imaging appointment. Dr. Negron will often read the image and make a recommendation through [employer]. Please understand, that due to the complexity of the presenting issue, many patients will need a physical examination even after their imaging, which would require a (more content not included)...Normal [facility] Memorial HospitalCNPNon 54-49-0424KEOWKgwhxbswz (RULTTB) MICHELLE RIVERA ([id number]) 1985 F Date Time Provider Department 09/17/22 XANDER CANTU During your visit today, we recorded the [...] for their MSK US on 11/16 at [place]. Allergies As of Date: 09/17/2022 Noted Allergy [...] (None) Encounter Status:Closed by KESHAWN CASTRO on 09/17/22[facility] HospitalMR Elbow - left WO contraston 62-53-9683GDMQFXZIJU: 1. Large partial tear of the common extensor tendon origin with associated tearing of the radial collateral ligament. Sales Office Manager: PSCB Transcribe Date/Time: Sep 11 2022 11:29A Dictated by : ASHLEY MCCARTY MD This examination was interpreted and the report reviewed and electronically signed by: ASHLEY MCCARTY MD on Sep 11 2022 11:33AM [facility] DIVISION OF RADIOLOGY* * *Final Report* * * DATE OF [...] No joint effusion nor synovitis. DIVISION OF RADIOLOGYProvider, [facility] [place] - 09/11/2022 * * *Final Report* * [...] associated tearing of the radial collateral ligament. Sales Office Manager: SHAYNE Transcribe Date/Time: Sep 11 2022 11:29A Dictated by : ASHLEY MCCARTY MD This examination was interpreted and the report reviewed and electronically signed by: ASHLEY MCCARTY MD on Sep 11 2022 11:33AM EST [facility] Elbow - left WO contrastOrdered By: Ccf Provider on 77-15-8970Fkdmyggql ClinicMR Elbow - right WO contraston 48-05-5394BMXCUXXAHR: 1. Tendinosis and a small partial tear of the common extensor tendon origin. Sales Office Manager: [facility]ITALCedrick Transcribe Date/Time: Sep 11 2022 11:42A Dictated by : ASHLEY MCCARTY MD This examination was interpreted and the report reviewed and electronically signed by: ASHLEY MCCARTY MD on Sep 11 2022 11:47AM EST DIVISION OF RADIOLOGY* * *Final Report* * * DATE OF EXAM: Sep 11 2022 11:27AM [facility] 0189 - MRI ELBOW WO IVCON [...] No joint effusion nor synovitis. DIVISION OF RADIOLOGYProvider, [facility] [place] - 09/11/2022 * * *Final Report* * * DATE OF EXAM: Sep 11 2022 11:27AM [facility] 0189 - MRI ELBOW WO IVCON [...] tear of the common extensor tendon origin. Sales Office Manager: PSCB Transcribe Date/Time: Sep 11 2022 11:42A Dictated by : ASHLEY MCCARTY MD This examination was interpreted and the report reviewed and electronically signed by: ASHLEY MCCARTY MD on Sep 11 2022 11:47AM EST [facility] Elbow - right WO contrastOrdered By: Ccf Provider on 41-63-4766Zulguisdp ClinicMRI ELBOW WO IVCON LTon 10-89-6063PBX ELBOW WO IVCON LT* * *Final Report* * * DATE OF EXAM: Sep 11 2022 10:52AM [facility] 0188 - MRI ELBOW WO IVCON [...] associated tearing of the radial collateral ligament. Sales Office Manager: SHAYNE Transcribe Date/Time: Sep 11 2022 11:29A Dictated by : ASHLEY MCCARTY MD This examination was interpreted and the report reviewed and electronically signed by: ASHLEY MCCARTY MD on Sep 11 2022 11:33AM EST [id number] Township District Memorial HospitalMRI ELBOW WO IVCON RTon 14-38-2719PXQ ELBOW WO IVCON RT* * *Final Report* * * DATE OF EXAM: Sep 11 2022 11:27AM [address] 0189 - MRI ELBOW WO IVCON RT [...] tear of the common extensor tendon origin. Sales Office Manager: SHAYNE Transcribe Date/Time: Sep 11 2022 11:42A Dictated by : ASHLEY MCCARTY MD This examination was interpreted and the report reviewed and electronically signed by: ASHLEY MCCARTY MD on Sep 11 2022 11:47AM EST [id number] Township District Memorial HospitalNo Panel Informationon 35-96-9970Flyixmmws Study observation (narrative)[facility]25([place])D3 SerPl-mCncon 94-12-585010029921-xquyaucxlrsqnp D3 [Mass/Vol]37.9 ng/fWLjvfhk87.0-80.0 [place] HospitalComment on above:Order Comment: Specimen Type: BLOOD SPECIMEN Ordering Facility: [facility] Address: [address] [place], [place] [address]Result Comment: Classification of 25 [place] Vitamin D status: Deficiency/Insufficiency: < or = 30 ng/ml. Sufficiency/Optimal Levels: 31-80 ng/mL Toxicity: > 100 ng/mL. Test performed by chemiluminescent immunoassay.Performed By: #### 1989-3 #### [facility] CLIA [id number] [address] [place] [address] STATES OF PROVIDENCE HOSPITALANA BY IFA WITH REFLEXon 77-32-5639Hrosrbg Ab IF (S) [Titer]NegativeNormalNegativeThorntown HospitalComment on above:Order Comment: Specimen Type: BLOOD SPECIMEN Ordering Facility: [facility] Address: [address] [place], [place] [address]Result Comment: Anti-nuclear antibody test is used as an aid in diagnosis of systemic autoimmune diseases. Where positive and clinically warranted, follow-up using disease-specific testing is recommended. Low positive titers are not uncommon with advanced age, certain chronic infections, and malignancies among others. Test methodology: Indirect fluorescence immunoassay (IFA) using HEp-2 cells. Performed By: #### ANAIFR #### [facility] CLIA [id number] [address] [place] [address] OF PROVIDENCE HOSPITALC-REACTIVE PROTEIN (CRP)on 09-30-8663YSB [Mass/Vol]2.8 mg/dLHigh<0.9 mg/dLOhioHealth Riverside Methodist Hospital W Auto Differential panel (Bld)on 56-67-2880Hmvgyzjta (Bld) [#/Vol]0.03 10*3/uLNormal <0.11Avon HospitalComment on above:Order Comment: Specimen Type: BLOOD SPECIMEN Ordering Facility: [facility] Address: [address] [place] [address]Performed By: #### 23970-2 #### [facility] [place] [id number] [address] [place] [address] [place] OF AMERICABasophils/100 WBC (Bld)0.1 %NormalAv HospitalComment on above:Order Comment: Specimen Type: BLOOD SPECIMEN Ordering Facility: [facility] Address: [address] [place], [place] [address]Performed By: #### 65964-1 #### [facility] [place] [id number] [place] [address] [place] OF AMERICADifferential cell count method Nom (Bld) AutoNormalAvon HospitalComment on above:Order Comment: Specimen Type: BLOOD SPECIMEN Ordering Facility: [facility] Address: [address] [place], [place] [address]Performed By: #### 88114-8 #### [facility] [place] [id number] [place] [address] [place] OF AMERICAEosinophils (Bld) [#/Vol]10*3/uLNormal <0.46Av HospitalComment on above:Order Comment: Specimen Type: BLOOD SPECIMEN Ordering Facility: [facility] Address: [address] [place], [place] [address]Performed By: #### 16263-0 #### [facility] [place] [id number] [place] [address] [place] OF AMERICAEosinophils/100 WBC (Bld)0.1 %NormalAv HospitalComment on above:Order Comment: Specimen Type: BLOOD SPECIMEN Ordering Facility: [facility] Address: [address] [place], [place] [address]Performed By: #### 31003-4 #### [facility] [place] [id number] [place] [address] [place] OF AMERICAErythrocyte distribution width (RBC) [Ratio]13.1 %Dsphac82.5-15.0Av HospitalComment on above:Order Comment: Specimen Type: BLOOD SPECIMEN Ordering Facility: [facility] Address: [address]Performed By: #### 72399-3 #### [facility] [place] [id number] [address] [place] [address] [place] OF AMERICAHematocrit (Bld) [Volume fraction]40.2 % Ifmsnn09.0-46.0Av HospitalComment on above:Order Comment: Specimen Type: BLOOD SPECIMEN Ordering Facility: [facility] Address: [address] [place], [place] [address]Performed By: #### 57409-8 #### [facility] [place] [id number] [address] [place] [id number] [place] OF AMERICAHemoglobin (Bld) [Mass/Vol]13.0 g/dL Hiyhyy13.5-15.5Avo HospitalComment on above:Order Comment: Specimen Type: BLOOD SPECIMEN Ordering Facility: [facility] Address: [address] [place], [place] [address]Performed By: #### 00196-8 #### [facility] [place] [id number] [address] [place] [address] [place] OF AMERICAImmature granulocytes (Bld) [#/Vol]0.13 10*3/uLHigh<0.10Avo HospitalComment on above:Order Comment: Specimen Type: BLOOD SPECIMEN Ordering Facility: [facility] Address: [address] [place], [place] [address]Performed By: #### 78625-6 #### [facility] [place] [id number] [address] [place] [address] [place] OF AMERICAImmature granulocytes/100 WBC (Bld)0.6 % NormalAv HospitalComment on above:Order Comment: Specimen Type: BLOOD SPECIMEN Ordering Facility: [facility] Address: [address] [place], [place] [address]Performed By: #### 93579-1 #### [facility] [place] [id number] [address] [place] [address] [place] OF AMERICALymphocytes (Bld) [#/Vol]1.68 10*3/uL Normal1.00-4.00Av HospitalComment on above:Order Comment: Specimen Type: BLOOD SPECIMEN Ordering Facility: [facility] Address: [address] [place], [place] [address]Performed By: #### 38481-0 #### [facility] [place] [id number] [address] [place] [address] [place] [facility] REGIONAL HOSPITALLymphocytes/100 WBC (Bld)7.9 %NormalAv HospitalComment on above:Order Comment: Specimen Type: BLOOD SPECIMEN Ordering Facility: [facility] Address: [address] [place], [place] [address]Performed By: #### 88874-9 #### [facility] [place] [id number] [place] [id number] [place] [address] (RBC) [Entitic mass]28.9 pgNormal 26.0-34.0Av HospitalComment on above:Order Comment: Specimen Type: BLOOD SPECIMEN Ordering Facility: [facility] Address: [address] [place], [place] [address]Performed By: #### 44442-9 #### [facility] [place] [id number] [address] [place], [place] [id number] [place] [address] (RBC) [Mass/Vol]32.3 g/dLNormal 30.5-36.0Av HospitalComment on above:Order Comment: Specimen Type: BLOOD SPECIMEN Ordering Facility: [facility] Address: [address] [place], [place] [address]Performed By: #### 39801-5 #### [facility] [place] [id number] [address] (RBC) [Entitic vol]89.3 fLNormal 80.0-100.0Av HospitalComment on above:Order Comment: Specimen Type: BLOOD SPECIMEN Ordering Facility: [facility] Address: [address] [place], [place] [address]Performed By: #### 67250-1 #### [facility] [place] [id number] [address] [place] [address] [place] OF AMERICAMonocytes (Bld) [#/Vol]1.22 10*3/uLHigh <0.87Av HospitalComment on above:Order Comment: Specimen Type: BLOOD SPECIMEN Ordering Facility: [facility] Address: [address] [place], [place] [address]Performed By: #### 92713-4 #### [facility] [place] [id number] [address] [place] [address] [place] AMERICAMonocytes/100 WBC (Bld)5.7 %NormalAv HospitalComment on above:Order Comment: Specimen Type: BLOOD SPECIMEN Ordering Facility: [facility] Address: [address] [place], [place] [address]Performed By: #### 16271-5 #### [facility] [place] [id number] [address] [place] [address] [place] OF AMERICANeutrophils (Bld) [#/Vol]18.27 10*3/uL High1.45-7.50Av HospitalComment on above:Order Comment: Specimen Type: BLOOD SPECIMEN Ordering Facility: [facility] Address: [address] [place], [place] [address]Performed By: #### 58950-4 #### [facility] IA [id number] [address] [place] [address] [place] AMERICANeutrophils/100 WBC (Bld)85.6 %NormalAv HospitalComment on above:Order Comment: Specimen Type: BLOOD SPECIMEN Ordering Facility: [facility] Address: [address] [place], [place] [address]Performed By: #### 86200-6 #### [facility] IA [id number] [address] [place] [address] [place] AMERICANucleated RBC (Bld) [#/Vol]10*3/uLNormal <0.01Av HospitalComment on above:Order Comment: Specimen Type: BLOOD SPECIMEN Ordering Facility: [facility] Address: [address] [place], [place] [address]Performed By: #### 13499-9 #### [facility] IA [id number] [address] [facility], [place] [address] [place] AMERICANucleated RBC/100 WBC (Bld) [Ratio]0.0 /100 WBCNormalAvon HospitalComment on above:Order Comment: Specimen Type: BLOOD SPECIMEN Ordering Facility: [facility] Address: [address] [place], [place] [address]Performed By: #### 80976-2 #### [facility] IA [id number] [address] [place] [address] [place] AMERICAPlatelet mean volume (Bld) [Entitic vol] 9.1 fLNormal9.0-12.7Avon HospitalComment on above:Order Comment: Specimen Type: BLOOD SPECIMEN Ordering Facility: [facility] Address: [address] [place], [place] [address]Performed By: #### 03528-6 #### [facility] IA [id number] [address] [place] [address] [place] AMERICAPlatelets (Bld) [#/Vol]358 10*3/uLNormal 150-400Avon HospitalComment on above:Order Comment: Specimen Type: BLOOD SPECIMEN Ordering Facility: [facility] Address: [address] [place], [place] [address]Performed By: #### 58658-7 #### [facility] [place] [id number] [address] [facility] [place] [address] [place] AMERICARBC (Bld) [#/Vol]4.50 10*6/uLNormal 3.90-5.20Avon HospitalComment on above:Order Comment: Specimen Type: BLOOD SPECIMEN Ordering Facility: [facility] Address: [address] [place], [place] [address]Performed By: #### 50992-6 #### [facility] [place] [id number] [address] [facility] [place] [address] [place] AMERICAWBC (Bld) [#/Vol]21.35 10*3/uLHigh 3.70-11.00Thorntown HospitalComment on above:Order Comment: Specimen Type: BLOOD SPECIMEN Ordering Facility: [facility] Address: [place] [address]Enoqbyjnl By: #### 92928-9 #### [facility] CLIA [id number] [facility] [place] [address] [place] [facility]ITALBasophils (Bld) [#/Vol]0.03 10*3/uL<0.11 k/uLKettering Health Behavioral Medical CenterBasophils/100 WBC (Bld)0.1 %[facility] Medical CenterDifferential cell count method Nom (Bld)AutoCleveland ClinicEosinophils (Bld) [#/Vol]<0.46 k/uLCleacmc healthcare system glenbeigh ClinicEosinophils/100 WBC (Bld)0.1 %[facility]al Medical CenterErythrocyte distribution width (RBC) [Ratio]13.1 %11.5 - 15.0 %[facility] Medical CenterHematocrit (Bld) [Volume fraction]40.2 %36.0 - 46.0 %[facility] Medical CenterHemoglobin (Bld) [Mass/Vol]13.0 g/dL11.5 - 15.5 g/dLKettering Health Behavioral Medical CenterImmature granulocytes (Bld) [#/Vol]0.13 10*3/uLHigh<0.10 k/uLKettering Health Behavioral Medical CenterImmature granulocytes/100 WBC (Bld)0.6 %[facility] Medical CenterLymphocytes (Bld) [#/Vol]1.68 10*3/uL1.00 - 4.00 k/uL [facility] Medical CenterLymphocytes/100 WBC (Bld)7.9 %[facility] Medical CenterMCH (RBC) [Entitic mass]28.9 pg26.0 - 34.0 pgCleveland Mayo Clinic HospitalMCHC (RBC) [Mass/Vol]32.3 g/dL30.5 - 36.0 g/dLKettering Health Behavioral Medical CenterMCV (RBC) [Entitic vol]89.3 fL80.0 - 100.0 fLCleveland ClinicMonocytes (Bld) [#/Vol]1.22 10*3/uLHigh<0.87 k/[facility] Monocytes/100 WBC (Bld)5.7 %[facility] Medical CenterNeutrophils (Bld) [#/Vol]18.27 10*3/uLHigh1.45 - 7.50 k/[facility] HospitalNeutrophils/100 WBC (Bld)85.6 % [facility] Medical CenterNucleated RBC (Bld) [#/Vol]<0.01 k/uLKettering Health Behavioral Medical CenterNucleated RBC/100 WBC (Bld) [Ratio]0.0 /100 WBCLenox ClinicPlatelet mean volume (Bld) [Entitic vol]9.1 fL9.0 - 12.7 fLClevelnovant health thomasville medical center ClinicPlatelets (Bld) [#/Vol]358 10*3/uL150 - 400 k/[facility] ClinicRBC (Bld) [#/Vol]4.50 10*6/uL3.90 - 5.20 m/[facility] HospitalWBC (Bld) [#/Vol]21.35 10*3/uLHigh3.70 - 11.00 k/[facility] HospitalCRP SerPl-mCncon 53-72-7218VJB [Mass/Vol]2.8 mg/dLHigh<0.9[facility] Comment on above:Order Comment: Specimen Type: BLOOD SPECIMEN Ordering Facility: [facility] Address: [address] [place], [place] [address]Performed By: #### 81596-7, 1988-01, 3083-09 #### [facility] CLIA [id number] [address] [place], [place] [id number] [place] [address] STATES OF AMERICAComprehensive metabolic 2000 panelon 27-72-2485Qrvguqa [Mass/Vol]4.0 g/dLNormal3.9-4.9AvoPutnam County HospitalComment on above: Order Comment: Specimen Type: BLOOD SPECIMEN Ordering Facility: [facility] Address: [address] [place], [place] [address]Performed By: #### 26523-4, 1988-01, 3083-09 #### [facility] CLIA [id number] [address] [place] [address] [place] AMERICAALP [Catalytic activity/Vol]92 U/LNormal 34-123Avon HospitalComment on above:Order Comment: Specimen Type: BLOOD SPECIMEN Ordering Facility: [facility] Address: [address] [place], [place] [phone] By: #### 48160-4, 1988-01, 3083-09 #### [facility] CLIA [id number] [address] [place] [address] [place] AMERICAALT [Catalytic activity/Vol]32 U/LNormal 7-38Avon HospitalComment on above:Order Comment: Specimen Type: BLOOD SPECIMEN Ordering Facility: [facility] Address: [address] [place], [place] [address]Performed By: #### 11784-9, 1988-01, 3083-09 #### [facility] CLIA [id number] [address] [place] [address] [place] AMERICAAnion gap [Moles/Vol]9 mmol/LNormal9-18 Lisa HospitalComment on above:Order Comment: Specimen Type: BLOOD SPECIMEN Ordering Facility: [facility] Address: [address] [place], [place] [phone] By: #### 45679-4, 1988-01, 3083-09 #### [facility] CLIA [id number] [address] [place] [address] [place] AMERICAAST [Catalytic activity/Vol]16 U/LNormal 13-35Av HospitalComment on above:Order Comment: Specimen Type: BLOOD SPECIMEN Ordering Facility: [facility] Address: [address] [place], [place] [phone] By: #### 10127-5, 1988-01, 3083-09 #### [facility] CLIA [id number] [address] [place] [address] [place] AMERICABilirubin [Mass/Vol]0.3 mg/dLNormal 0.2-1.3Avon HospitalComment on above:Order Comment: Specimen Type: BLOOD SPECIMEN Ordering Facility: [facility] Address: [address]Performed By: #### 00707-6, 1988-01, 3083-09 #### [facility] CLIA [id number] [address] [place] [address] [place] AMERICACalcium [Mass/Vol]8.6 mg/dLNormal8.5-10.2 [place] HospitalComment on above:Order Comment: Specimen Type: BLOOD SPECIMEN Ordering Facility: [facility] Address: [address] [place], [place] [address]Performed By: #### 93563-7, 1988-01, 3083-09 #### [facility] CLIA [id number] [address] [place] [address] [place] AMERICAChloride [Moles/Vol]98 mmol/GUfcypm59-949 [facility] HospitalComment on above:Order Comment: Specimen Type: BLOOD SPECIMEN Ordering Facility: [facility] Address: [address] [place], [place] [address]Performed By: #### 01643-1, 1988-01, 3083-09 #### [facility] CLIA [id number] [place] [address] [place] AMERICACO2 [Moles/Vol]25 mmol/SSslote63-67Fovc HospitalComment on above:Order Comment: Specimen Type: BLOOD SPECIMEN Ordering Facility: [facility] Address: [address] [place], [place] [address]Performed By: #### 74385-3, 1988-01, 3083-09 #### [facility] CLIA [id number] [place] [address] [place] AMERICACreatinine [Mass/Vol]0.65 mg/dLNormal 0.58-0.96Th[facility] HospitalComment on above:Order Comment: Specimen Type: BLOOD SPECIMEN Ordering Facility: [facility] Address: [address]Performed By: #### 83093-6, 1988-01, 3083-09 #### [facility] CLIA [id number] [address] [place] [address] [place] AMERICAESTIMATED GLOMERULAR FILTRATION IIMF135 mL/min/1.73m???Normal>=60AvFranciscan Health MunsterComment on above:Order Comment: Specimen Type: BLOOD SPECIMEN Ordering Facility: [facility] Address: [address] [place], [place] [phone] Comment: Estimated Glomerular Filtration Rate (eGFR) is calculated using the 2020 CKD-EPI cre atinine equation. This equation utilizes serum creatinine, sex, and age as parameters. The creatinine assay has traceable calibration to isotope dilution- mass spectrometry. Refer to KDIGO guidelines for clinical interpretation. In patients with unstable renal function, e.g. those with acute kidney injury, the eGFR may not accurately reflect actual GFR.Performed By: #### 63217-0, 3083-09 #### [facility] CLIA [id number] [address] [place] [address] [place] AMERICAGlucose [Mass/Vol]107 mg/nJCvje54-01Igpi HospitalComment on above:Order Comment: Specimen Type: BLOOD SPECIMEN Ordering Facility: [facility] Address: [address] [place], [place] [phone] Comment: The [place] Diabetes Association (ADA) provides guidance for cutoff [...] Standards of Medical Care in Diabetes 2016, [place] Diabetes Association. Diabetes Care. 2016.39(Suppl 1).Performed By: #### 25843-0, 1988-01, 3083-09 #### [facility] CLIA [id number] [address] [place] [address] [place] AMERICAPotassium [Moles/Vol]4.2 mmol/LNormal 3.7-5.1Avon HospitalComment on above:Order Comment: Specimen Type: BLOOD SPECIMEN Ordering Facility: [facility] Address: [address] [place], [place] [address]Performed By: #### 56865-8, 1988-01, 3083-09 #### [facility] IA [id number] [address] [place] [address] [place] AMERICAProtein [Mass/Vol]7.1 g/dLNormal6.3-8.0 [place] HospitalComment on above:Order Comment: Specimen Type: BLOOD SPECIMEN Ordering Facility: [facility] Address: [address] [place], [place] [address]Performed By: #### 84496-0, 1988-01, 3083-09 #### [facility] IA [id number] [place] [address] [place] AMERICASodium [Moles/Vol]132 mmol/BSob878-982 [facility] HospitalComment on above:Order Comment: Specimen Type: BLOOD SPECIMEN Ordering Facility: [facility] Address: [address] [place], [place] [address]Performed By: #### 31726-7, 1988-01, 3083-09 #### [facility] IA [id number] [place] [address] [place] AMERICAUrea nitrogen [Mass/Vol]17 mg/dLNormal 7-21Th[facility]town HospitalComment on above:Order Comment: Specimen Type: BLOOD SPECIMEN Ordering Facility: [facility] Address: [address] [place], [place] [address]Performed By: #### 11446-2, 1988-01, 3083-09 #### [facility] IA [id number] [address] [place] [address] [place] AMERICAAlbumin [Mass/Vol]4.0 g/dL3.9 - 4.9 g/dL Lenox ClinicALP [Catalytic activity/Vol]92 U/L34 - 123 U/LCleveland Clinic ALT [Catalytic activity/Vol]32 U/L7 - 38 U/LCleveland ClinicAnion gap [Moles/Vol]9 mmol/L9 - 18 mmol/LCleveland ClinicAST [Catalytic activity/Vol]16 U/L13 - 35 U/LCleveland ClinicBilirubin [Mass/Vol]0.3 mg/dL0.2 - 1.3 mg/dL [facility] Medical CenterCalcium [Mass/Vol]8.6 mg/dL8.5 - 10.2 mg/dLKettering Health Behavioral Medical Center Chloride [Moles/Vol]98 mmol/L97 - 105 mmol/LCleveland ClinicCO2 [Moles/Vol]25 mmol/L22 - 30 mmol/LCleveland ClinicCreatinine [Mass/Vol]0.65 mg/dL0.58 - 0.96 mg/dLKettering Health Behavioral Medical CenterEstimated Glomerular Filtration Zuuc843 mL/min/1.73m>=60 mL/min/1.73mCleveland Mayo Clinic HospitalGlucose [Mass/Vol]107 mg/vBYypy99 - 99 mg/dL [facility] Medical CenterPotassium [Moles/Vol]4.2 mmol/L3.7 - 5.1 mmol/LCleveland Mayo Clinic Hospital Protein [Mass/Vol]7.1 g/dL6.3 - 8.0 g/dLAshtabula County Medical Centerodium [Moles/Vol]132 mmol/KBhc276 - 144 mmol/LCleveland Mayo Clinic HospitalUrea nitrogen [Mass/Vol]17 mg/dL7 - 21 mg/dLKettering Health Behavioral Medical CenterCyclic citrullinated peptide IgG Qnon 54-42-8727OUI ANTIBODY IGG QUALITATIVENegativeNormalNegativeAvon HospitalComment on above: Order Comment: Specimen Type: BLOOD SPECIMENOrdering Facility: [facility] Address:[address] [place], [place] [address]Performed By: #### 17091-5, 28831-3 ####[facility] LABCLIA [id number] [address] OF AMERICAESR Westergren method (Bld) [Velocity]on 67-04-5514VEC (Bld) [Velocity]10 mm/hNormal0-20AvFranciscan Health Munster Comment on above:Order Comment: Specimen Type: BLOOD SPECIMEN Ordering Facility: [facility] Address: [address] [place], [place] [address]Performed By: #### 4537-7 #### [facility] CLIA [id number] [address] [place] [address] [place] AMERICARheumatoid fact SerPl-aCncon 81-41-4653Zxfkgldpnv factor Qn[IU]/mLNormal<16Avon HospitalComment on above: Order Comment: Specimen Type: BLOOD SPECIMEN Ordering Facility: [facility] Address: [address] [place], [place] [phone] By: #### 29830-9 #### [facility] CLIA [id number] [address] [place] [address] [place] AMERICAURIC ACID BLOODon 08-20-2022 Urate [Mass/Vol]2.9 mg/dL2.5 - 6.6 mg/dLKettering Health Behavioral Medical CenterUrate SerPl-mCncon 66-50-7975Xaguf [Mass/Vol]2.9 mg/dLNormal2.5-6.6Avon HospitalComment on above: Order Comment: Specimen Type: BLOOD SPECIMEN Ordering Facility: [facility] Address: [address] [place], [place] [phone] By: #### 17387-6, 1987-, 308- #### [facility] CLIA [id number] [address] [place] [address] [place] AMERICAXR CERVICAL 4V AP/LAT/OBLon 04-27-9632QB CERVICAL 4V AP/LAT/OBL* * *Final Report* * * DATE OF [...] osseous abnormality. Mild degenerative changes, as described. Sales Office Manager: SHAYNE Transcribe Date/Time: Aug 20 2022 11:28A Dictated by : MAXIME DEXTER MD This examination was interpreted and the report reviewed and electronically signed by: ALIZE SANCHEZ MD on Aug 20 2022 4:05PM EST [id number] HospitalcCP IgG SerPl-aCncon 25-75-6956Swijpu citrullinated peptide IgG Qn<15Normal<20Avon HospitalComment on above:Order Comment: Specimen Type: BLOOD SPECIMENOrdering Facility: [facility] Address:[address] [place], [place] [phone] By: #### 11601-1, 62468-1 ####[facility]IA [id number] [place] [address] [place] AMERICAdsDNA Ab Ser IA-aCncon 95-65-2605CCY double strand Ab IA Qn (S)<12Normal<30Avon HospitalComment on above:Order Comment: Specimen Type: BLOOD SPECIMENOrdering Facility: [facility] Address:[address] [place], [place] [phone] Comment: Negative for ds DNA Antibodies. <30 IU/mL Negative 30-74 IU/mL Equivocal >74 IU/mL PositivePerformed By: #### 74704-8, 32439-4 ####[facility]IA [id number] [place] [address] [place] AMERICANo Panel Informationon 29-89-2226IKYCYEGMEO: NORMAL EXCEPT FOR MINIMAL LATERAL EPICONDYLAR ENTHESOPATHY BILATERALLY Sales Office Manager[facility] Transcribe Date/Time: Jul 20 2022 10:34A Dictated by : GERBER CASILLAS MD This examination was interpreted and the report reviewed and electronically signed by: GERBER CASILLAS MD on Jul 20 2022 10:35AM [facility] DIVISION OF RADIOLOGYRadiology Study observation (narrative)[facility] Panel InformationOrdered By: [facility] Provider on 94-53-1927Hrhzrosiw ClinicXR Elbow - left AP and Lateral and obliqueon 07-20-2022* * *Final Report* * * DATE OF [...] tissues. No other significant abnormality. DIVISION OF RADIOLOGYProvider, [facility] [place] - 07/20/2022 * * *Final Report* * [...] EXCEPT FOR MINIMAL LATERAL EPICONDYLAR ENTHESOPATHY BILATERALLY Sales Office Manager: SHAYNE Transcribe Date/Time: Jul 20 2022 10:34A Dictated by : GERBER CASILLAS MD This examination was interpreted and the report reviewed and electronically signed by: GERBER CASILLAS MD on Jul 20 2022 10:35AM [facility] HospitalXR Elbow - right AP and Lateral and obliqueon 07-20-2022* * *Final Report* * * DATE OF [...] tissues. No other significant abnormality. DIVISION OF RADIOLOGYProvider, [facility] [place] - 07/20/2022 * * *Final Report* * [...] EXCEPT FOR MINIMAL LATERAL EPICONDYLAR ENTHESOPATHY BILATERALLY Sales Office Manager: SHAYNE Transcribe Date/Time: Jul 20 2022 10:34A Dictated by : GERBER CASILLAS MD This examination was interpreted and the report reviewed and electronically signed by: GERBER CASILLAS MD on Nov 18 2022 10:35AM [facility] HospitalPTH INTACTon 34-58-6999JBV, Ecrhvt03 pg/mLCritically vts38-30Khd [facility] SystemComment on above:Performed By: #### PTHINT #### [facility] [address] [place] [address] Dr. Greer Dixon 25-[place] LABCORPon 49-60-4272Hnmdkzg D, 25-Ihkjqte28.4 ng/mL Adzwrt23.0-100.0The [facility] Health SystemComment on above:Result Comment: Vitamin D deficiency has been defined by the [place] of Medicine and an Endocrine Society practice guideline as a level of serum 25-OH vitamin D less than 20 ng/mL (1,2). The Endocrine Society went on to further define vitamin D insufficiency as a level between 21 and 29 ng/mL (2). 1. IOM ([place] of [place]). 2010. Dietary reference intakes for calcium and D. Diaz [place]: The National Academies Press. 2. Willem MF, Sadie NC, Noav SHEPARD, et al. Evaluation, treatment, and prevention of vitamin D deficiency: an Endocrine Society clinical practice guideline. JCEM. 2010; 96(7):1911-30.Performed By: #### VITADLC #### [facility] [address] [place] [address] Dr. Greer NguyenCALCIUMon 04-84-5633Zdudpkb [Mass/Vol]8.1 mg/dLCritically low 8.5-10.1The [facility] Health SystemComment on above:Performed By: #### CA, TSH, LIVER, LIPID #### [facility] [address] [place] [address] Dr. Greer NguyenCBC AUTO DIFFon 87-74-1181HPBG #0.0 103/ulNormal0.0-0.1The [facility] Health SystemComment on above:Performed By: #### CBC #### [facility] [address] [place] [address] Dr. Greer NguyenBasophils/100 WBC (Bld)0.4 %Normal0.2-2.0The [facility] Comment on above:Performed By: #### CBC #### [facility] [address] [place] [address] Dr. Greer Contreras #0.1 103/ulNormal0.0-0.7The [facility] Health SystemComment on above: Performed By: #### CBC #### [facility] [address] [place] [address] Dr. Greer Woodsosinophils/100 WBC (Bld)0.7 %Critically low0.9-7.0The [facility] Health SystemComment on above:Performed By: #### CBC #### [facility] [address] [place] [address] Dr. Greer Woodsrythrocyte distribution width (RBC) [Ratio]13.3 %Sngrpq71.0-15.0 The [facility] on above:Performed By: #### CBC #### [facility] [address] [place] [address] Dr. Greer NguyenHematocrit (Bld) [Volume fraction]36.6 %Rbmdos12.0-48.0The [facility] Health SystemComment on above:Performed By: #### CBC #### [facility] [address] [place] [address] Dr. Greer NguyenHemoglobin (Bld) [Mass/Vol]12.1 g/gBZhpeml40.0-16.0The Gal[facility] Hospitalment on above:Performed By: #### CBC #### [facility] [address] [place] [address] Dr. Greer Stewart #0.01 10e3/ulNormal0.00-0.03The [facility] Health SystemComment on above:Performed By: #### CBC #### [facility] [address] [place] [address] Dr. Greer Stewart %0.1 %Normal0.0-0.5The [facility] on above: Performed By: #### CBC #### [facility] [address] [place] [address] Dr. Greer GuevaraH #2.3 103/ulNormal1.2-3.8The [place] HospitalComment on above:Performed By: #### CBC #### [facility] [address] [address] [address] Greer Shanemphocytes/100 WBC (Bld)28.4 %Ztuqdh95.5-60.0The [facility] Health SystemComment on above:Performed By: #### CBC #### [facility] [address] [place] [address] Dr. Greer BurgerUAL DIFF REQNONormalThe [facility] Health SystemComment on above: Performed By: #### CBC #### [facility] [address] [place] [address] Dr. Greer Del Angel (RBC) [Entitic mass]29.4 jwIpudll16.7-34.0The [facility] Health SystemComment on above:Performed By: #### CBC #### [facility] [address] [place] [address] Dr. Greer Del Angel (RBC) [Mass/Vol]33.1 g/fJDzmcre52.9-35.2The [facility] Health SystemComment on above:Performed By: #### CBC #### [facility] [address] [place] [address] Dr. Greer Del Angel (RBC) [Entitic vol]88.8 hUOavoci52.0-99.0The [facility] SystemComment on above:Performed By: #### CBC #### [facility] [address] [place] [address] Dr. Greer Deras #0.5 103/ulNormal0.3-0.8The [facility] Health SystemComment on above:Performed By: #### CBC #### [facility] [address] [place] [address] Dr. Greer Morenoocytes/100 WBC (Bld)6.0 %Normal1.7-12.0The [facility] on above:Performed By: #### CBC #### [facility] [address] [place] [address] Dr. Greer Mead #5.2 103/ulNormal1.4-6.5The [facility] Hospitalment on above:Performed By: #### CBC #### [facility] [address] [address] [address] Greer NguyenNeutrophils/100 WBC (Bld)64.4 %Mvzpti86.0-75.0The [facility] on above:Performed By: #### CBC #### [facility] [address] [address] [address] Greer NguyenPlatelet mean volume (Bld) [Entitic vol]8.8 fLCritically low 9.5-13.5The [facility] on above:Performed By: #### CBC #### [facility] [address] [place] [address] Dr. Greer NguyenPLT348 103/ppNjputm991-686Nls [facility] on above: Performed By: #### CBC #### [facility] [address] [place] [address] Dr. Greer NguyenRBC4.12 106/ulCritically low4.20-5.40The [facility] on above:Performed By: #### CBC #### [facility] [address] [place] [address] Dr. Greer NguyenWBC8.1 103/ulNormal4.0-11.0[facility] on above: Performed By: #### CBC #### [facility] [address] [place] [address] Dr. Greer NguyenFERRITINon 04-89-3303Hwdqelqi [Mass/Vol]95.0 ng/mLNormal6.2-137.0 The [facility] on above:Performed By: #### FERR, B12FOL, FETIBC #### [facility] [address] [place] [address] Dr. Greer NguyenGLYCOHEMOGLOBIN A1Con 90-71-0714FLE RECOMMENDATIONSEE BELOWNormal [facility] on above:Result Comment: ADA RECOMMENDED LIMIT 4.0 - 6.0 ADA THERAPEUTIC TARGET < 7.0 ACTION SUGGESTED > 7.0Performed By: #### A1C #### [facility] [address] [place] [address] Dr. Greer NguyenGlucose [Mass/Vol]117 mg/dLHighland District HospitalComment on above:Performed By: #### A1C #### [facility] [address] [place] [address] Dr. Greer NguyenHbA1c (Bld) [Mass fraction]5.7 %Normal4.5-6.2Sheltering Arms HospitalComment on above:Performed By: #### A1C #### [facility] [address] [place] [address] Dr. Greer Barclay AND TIBCon 05-04-2022% ACWRPKNUXW27.2 %NormalSheltering Arms HospitalComment on above:Performed By: #### FERR, B12FOL, FETIBC #### [facility] [address] [place] [address] Dr. Greer Barclay [Mass/Vol]63.0 ug/jWDlercu17.0-170.0[facility] Comment on above:Performed By: #### FERR, B12FOL, FETIBC #### [facility] [address] [place] [address] Dr. Greer VillarC ZVMZET112.0 ug/cLNyzvyn550.0-450.0[facility] Comment on above:Performed By: #### FERR, B12FOL, FETIBC #### [facility] [address] [place] [address] Dr. Greer NguyenLIPID PROFILEon 97-01-6731SOGD-HDL RATIO NORMSMercy Health St. Joseph Warren HospitalComment on above:Result Comment: 3.3 - 4.4 LOW RISK 4.4 - 7.1 AVERAGE RISK 7.1 - 11.0 MODERATE RISK >11.0 HIGH RISKPerformed By: #### CA, TSH, LIVER, LIPID #### [facility] [address] [place] [address] Dr. Greer NguyenCholesterol [Mass/Vol]144 mg/dLNormal<=200[facility] Comment on above:Performed By: #### CA, TSH, LIVER, LIPID #### [facility] [address] [address] [address] Greer Zhongesterol in HDL [Mass/Vol]45 mg/aELofqcf71-01UmbSheltering Arms HospitalComment on above:Performed By: #### CA, TSH, LIVER, LIPID #### [facility] [address] [address] [address] Greer NguyenCholesterol in LDL [Mass/Vol]92.8 mg/dLNoWayne HealthCare Main CampusComment on above:Performed By: #### CA, TSH, LIVER, LIPID #### [facility] [address] [address] [address] Greer Sheth.total/Cholesterol in HDL [Mass ratio]3.2 {ratio} NormalThe [facility] Health SystemComment on above:Performed By: #### CA, TSH, LIVER, LIPID #### [facility] [address] [address] [address] Greer Forrester NORMAL> or = 60 mg/dl - LOW CARDIOVASCULAR RISK <40 mg/dl - HIGH CARDIOVASCULAR RISKHighland District HospitalComment on above:Performed By: #### CA, TSH, LIVER, LIPID #### [facility] [address] [address] [address] Greer Bolanos CALC NORMALSEE BELOWHighland District HospitalComment on above:Result Comment: <100 mg/dl OPTIMAL 100 - 129 mg/dl NEAR OR ABOVE OPTIMAL 130 - 159 mg/dl BORDERLINE HIGH 160 - 189 mg/dl HIGH >190 mg/dl VERY HIGH Performed By: #### CA, TSH, LIVER, LIPID #### [facility] [address] [address] [address] Greer NguyenTriglyceride [Mass/Vol]31 mg/dLNormal<=150[facility] Comment on above:Performed By: #### CA, TSH, LIVER, LIPID #### [facility] [address] [address] [address] Greer AguilarLDL CALC6.2 mg/dLNoWayne HealthCare Main CampusComment on above: Performed By: #### CA, TSH, LIVER, LIPID #### [facility] [address] [place] [address] Dr. Greer Vivas PROFILEon 62-12-1910Trbppwg [Mass/Vol]3.2 g/dLCritically low3.4-5.0The [facility] SystemComment on above:Performed By: #### CA, TSH, LIVER, LIPID #### [facility] [address] [place] [address] Dr. Greer NguyenAlbumin/Globulin [Mass ratio]0.9 {ratio}NormalThe [facility] Health SystemComment on above:Performed By: #### CA, TSH, LIVER, LIPID #### [facility] [address] [place] [address] Dr. Greer Storey [Catalytic activity/Vol]91 U/TAtnqdj53-913Ttx [facility] SystemComment on above:Performed By: #### CA, TSH, LIVER, LIPID #### [facility] [address] [place] [address] Dr. Greer Corral [Catalytic activity/Vol]31 U/RMalgrv87-78Mbi [facility] SystemComment on above:Performed By: #### CA, TSH, LIVER, LIPID #### [facility] [address] [place] [address] Dr. Greer Desai [Catalytic activity/Vol]14 U/LCritically ord72-56Fus Galion Hospitalment on above:Performed By: #### CA, TSH, LIVER, LIPID #### [facility] [address] [place] [address] Dr. Greer De La Cruz, CONJUGATED0.1 mg/dLNormal0.0-0.2The [facility] Comment on above:Performed By: #### CA, TSH, LIVER, LIPID #### [facility] [address] [place] [address] Dr. Greer Garciairubin [Mass/Vol]0.2 mg/dLNormal0.2-1.0[facility] Comment on above:Performed By: #### CA, TSH, LIVER, LIPID #### [facility] [address] [address] [address] Greer NguyenGlobulin (S) [Mass/Vol]3.7 g/dLNormalThe [facility] SystemComment on above:Performed By: #### CA, TSH, LIVER, LIPID #### [facility] [address] [address] [address] Greer NguyenProtein [Mass/Vol]6.9 g/dLNormal6.4-8.2The [facility] Comment on above:Performed By: #### CA, TSH, LIVER, LIPID #### [facility] [address] [address] [address] Greer GannHotera 31-30-8636UBY5.744 uIU/mLNormal0.358-3.740The [facility] SystemComment on above:Performed By: #### CA, TSH, LIVER, LIPID #### [facility] [address] [address] [address] Greer Morris B12 AND FOLATEon 75-76-8734Umqmxmkgb (Vitamin B12) [Mass/Vol] 893.0 pg/jZCcrtrh408.0-986.0The [facility] SystemComment on above:Performed By: #### CA, TSH, LIVER, LIPID #### [facility] [address] [place] [address] Dr. Greer NguyenFOLATE23.40 ng/mLNormal8.60-58.90The [facility] SystemComment on above:Performed By: #### CA, TSH, LIVER, LIPID #### [facility] [address] [place] [address] Dr. Greer NguyenHCG ( test) IA.rapid Ql (U)Ordered By: Ed Malhotra on 93-47-5697PRR ( test) Ql (U)[facility] HCG ( test) IA.rapid Ql (U)Ordered By: Ed Malhotra on 52-63-7893NQS ( test) Ql (U)[facility] CenterXR hip BI w SGP3Apu 71-00-8179DG hip BI w CHE3XEHCZFXEJFMERCY HEALTH ANDERSON HOSPITALNort [employer] Other XR hip BI w YDR1ZPANIRegency Hospital [facility] [employer] Other XR hip BI w [id number] [facility] [employer] Other XR hip BI w DYN4HZpvnjpqy, [place] [address]Eslxg [employer] Other XR hip BI w AAX8VWGghCrockett Hospital [employer] Other XR hip BI w [id number] [employer] Other XR hip BI w FXC5LOojsenn: Michelle Rivera MR#: [id number] [facility] [employer] Other XR hip BI w [id number] [employer] Other XR hip BI w [id number]: 1985 Acct:[id number] [employer] Other XR hip BI w QAI4HBlb/Sex: 36 / F ADM Date: 11/16/21 Barrett [employer] Other XR hip BI w MJZ9RAmg: ALEXD Room: Type: [facility] [employer] Other xr hip BI w [id number] Dr: Ed Malhotra [facility] [employer] Other xr hip BI w WHJ4DLzavecrd Provider: Ed Malhotra MDBarrett [employer] Other XR hip BI w PRU5EZvnb of Service: 11/16/21Barrett [employer] Other XR hip BI w [id number] #: ([id number]) XR/XR hip BI w PEL1V: Hip painBarrett [employer] Other XR hip BI w [id number] to: Ed Malhotra MDBarrett [employer] Other XR hip BI w FUN3KZxr pelvis and bilateral hips 11/16/2021.[employer] Other xr hip BI w [id number] DATA: Long history of bilateral hip pain.[employer] Other xr hip BI w OPS5IOOALXCNQ: An AP view of both hips was obtained along with separate lateral views of each of [facility] [employer] Other XR hip BI w LIN7Ahgobh and left hips for a total of 3 images.[employer] Other xr hip BI w WHS0DLb acute fracture or dislocation is identified. No significant degenerative or other arthriticNobarnes-j[facility] [employer] Other XR hip BI w UFV8Ubpynxpw are seen. No bony erosion or destruction is visualized.[employer] Other xr hip BI w [id number] #: [id number] XR/XR hip BI w NLW9WJxnxg [employer] Other xr hip BI w DTU2XGMOLSVXMXU: No bony abnormality.[employer] Other xr hip BI w UWT5MZqyhkefsuq dictated by: Lester King Jr., M.D.11/16/2021 12:22 [facility] [employer] Other xr hip BI w YJW2EBqwxkrgls Location: [address] [employer] Other xr hip BI w [id number] By: CHIKI 11/16/21 [facility] [employer] Other xr hip BI w [id number] By: Lester King Jr, MD 11/16/[address] [place] [address] [employer] Other xr hip BI w AZD8IQcywaw By:[employer] Other xr hip BI w [id number]/16/[address] [place] [address] [employer] Other Dietition Noteon 52-43-8691Cdqkzehjh NoteChief Complaint A telephone visit (audio only) between [...] Benign essential HTN; LAUREL = N; Record; LastUpdated By: Nicol Padilla; 10/04/2021 11:30:31 AM CeleXA [...] Tablet; Refill: 0;For: GERD (gastroesophageal reflux disease); LAUREL= N; Record; Last Updated By: Dionna Levi; 04/20/2021 4:14:36 PM Pepcid 20 MG Oral Tablet (Famotidine); TAKE 1 TABLET TWICE DAILY; Therapy: 20Apr2021 to Recorded Dispense: 0 Days ; #: Sufficient Tablet; Refill: 0;For: GERD (gastroesophageal reflux disease); LAUREL= N; Record; Last Updated By: Dionna Levi; 04/20/2021 4:14:36 PM Ozempic (0.25 or 0.5 MG/DOSE) 2 MG/1.5ML Subcutaneous Solution Pen-injector; Therapy: 04Oct2021 to Recorded Dispense: 0 Days ; #: Sufficient X 1.5 ML Pen; Refill: 0;For: Health Maintenance; LAUREL = N; Record; Last Updated By: Nicol Padilla; 10/04/2021 11:24:08 AM Topamax 100 MG Oral Tablet (Topiramate); Therapy: [id number] to Recorded Dispense: 0 Days ; #: [...] She was struggling to lower her weight sinceshe was treated with steroids to help breathing after being diagnosed COVID-19 in July. She wassick for over 5 weeks. Appetite has been [...] 64 ounces of water and calorie free, non- carbonated, and decaffeinated beverages daily. 2. Practice the [...] good understanding o (more content not included)... NormalUH TouchworksDietition Noteon 70-27-9537Dgjcnhhfb NoteChief Complaint A telephone visit (audio only) between [...] Tablet; Refill: 0;For: GERD (gastroesophageal reflux disease); LAUREL= N; Record; Last Updated By: Dionna Levi; 04/20/2021 4:14:36 PM Pepcid 20 MG Oral Tablet (Famotidine); TAKE 1 TABLET TWICE DAILY; Therapy: 20Apr2021 to Recorded Dispense: 0 Days ; #: Sufficient Tablet; Refill: 0;For: GERD (gastroesophageal reflux disease); LAUREL= N; Record; Last Updated By: Dionna Levi; [...] exercise habits. Hoping to pursue WLS and planningon scheduling visits for medical clearances in the [...] RD; Aug 23 2021 1:24PM EST (Author) [facility] TouchworksDietition Noteon 51-62-3707Fgpksqxma NoteChief Complaint A telephone visit (audio only) between [...] 1 TABLET 3 TIMES DAILY NEEDED; Therapy: [id number] to Recorded Dispense: 0 Days ; #: Sufficient Tablet; Refill: 0;For: Back spasm; LAUREL = N; Record; Last Updated By: Dionna Levi; 04/20/2021 4:14:36 PM CeleXA 40 MG Oral Tablet (Citalopram Hydrobromide); Therapy: [id number] to Recorded Dispense: 0 Days ; #: [...] Tablet; Refill: 0;For: GERD (gastroesophageal reflux disease); LAUREL= N; Record; Last Updated By: Dionna Levi; 04/20/2021 4:14:36 PM Pepcid 20 MG Oral Tablet (Famotidine); TAKE 1 TABLET TWICE DAILY; Therapy: 20Apr2021 to Recorded Dispense: 0 Days ; #: Sufficient Tablet; Refill: 0;For: GERD (gastroesophageal reflux disease); LAUREL= N; Record; Last Updated By: Dionna Levi; [...] 64 ounces of water and calorie free, non- carbonated, and decaffeinatedbeverages daily. 2. Practice the 30-30-30 rule by [...] choose healthy foods, along with ways to modifyrecipes as part of meal planning during the holiday season. A/P: Pt appears to have a good understanding of how to incorporate health foods as part of holiday meal plans into her daily meal pattern. Ms. Rivera (more content not included)...NormalUH TouchworksDietition Noteon 24-01-6985Mlxgakfrf NoteChief Complaint A telephone visit (audio only) between [...] Tablet; Refill: 0;For: GERD (gastroesophageal reflux disease); LAUREL= N; Record; Last Updated By: Dionna Levi; 04/20/2021 4:14:36 PM Pepcid 20 MG Oral Tablet (Famotidine); TAKE 1 TABLET TWICE DAILY; Therapy: 20Apr2021 to Recorded Dispense: 0 Days ; #: Sufficient Tablet; Refill: 0;For: GERD (gastroesophageal reflux disease); LAUREL= N; Record; Last Updated By: Dionna Levi; [...] Track your intake with a goal of 1400calories daily. 4. Have balanced meals that always [...] of healthy eating habits (more content not included)...NormalUH TouchworksDietition Noteon 87-58-7699Crcuricdr Note Chief Complaint A telephone visit (audio [...] Tablet; Refill: 0;For: GERD (gastroesophageal reflux disease); LAUREL= N; Record; Last Updated By: Dionna Easton; 04/20/2021 4:14:36 PM Pepcid 20 MG Oral Tablet; TAKE 1 TABLET TWICE DAILY; Therapy: [id number] to Recorded Dispense: 0 Days ; #: Sufficient Tablet; Refill: 0;For: GERD (gastroesophageal reflux disease); LAUREL= N; Record; Last Updated By: Dionna Easton; 04/20/2021 4:14:36 PM Topamax 50 MG Oral Tablet; TAKE 1 TABLET DAILY; Therapy: 71Eeu8101 to Recorded Dispense: 0 Days ; #: [...] 169.6 - 189.8 Food allergies/intolerances: slight lactose Chewing/Swallowing/Dentition: no Nausea / Vomiting / Hx Gastroparesis: has acid reflux managed with Omeprezole Diarrhea/ Constipation: some loose stools with dairy products Exercise level: walks most days 15 min. Smoking/Tobacco use: smoking occasionally Vitamins/Minerals supplements: no Medications: see list Past diet attempts: intermittent fasting; fasting for multiple days at a time, herbal life; Adipex,Paleo Hours of sleep/night: 6-7 24 HOUR RECALL/DIET [...] conducted via phone d/ (more content not included)...NormalUH [facility] HealthworksBariatric Surgery - Initialon 43-55-6139Kulthjnqi Surgery - Initial Diagnoses/Problems Assessed GERD (gastroesophageal [...] day smoker Tobacco Use Screening; Status:Complete; Done: [id number] Patient Discussion/Summary The following are some lifestyle [...] and bypass. She does have reflux disease sheis prediabetes along with thyroid disease. Is struggling with weight loss especially with rebound food and making choices for meals especially liquid meals. Her plan is to enroll and see how she doeswith our program and the small meals frequent eating process. If she struggles with this we discussed that this is a mainstay of the surgery along with exercising. She will need an EGD. She may have irritable bowel syndrome and lactose intolerance or gluten sensitivity she was planning to see her light cleaner for this I agree that she should visit with them. Chief Complaint The patient is being seen initial visit. An interactive audio and video telecommunication system which permits real time communications between the patient (at the originating site) and provider (at the distant site) was utilized to providethis telehealth service. Verbal consent was requested and obtained from MICHELLE RIVERA on this date, 04/27/2021 08:30 AM , for atelehealth visit. Adult Risk Screening There are spiritual/cultural practices/values/needs that are important to know: Seth Initial Fall Ris (more content not included)...NormalUH TouchworksANTINUCLEAR ANTIBODYon [id number] ANTIBODYNegativeNormalNEGATIVEHealthSouth - Specialty Hospital of UnionComment on above:Performed By: #### FELICIANO ####[facility], [place] [address]JFXRBTQRVW ANTIBODYon 01-22-2018 CITRULLINE ANTIBODY<1NormalHealthSouth - Specialty Hospital of UnionComment on above:Result Comment: THE TEST FOR ANTIBODIES SPECIFIC FOR CYCLICCITRULLINATED PEPTIDE (CCP) HAS SHOWN TOBEVALUABLE IN THE DIAGNOSIS OF RHEUMATOIDARTHRITIS. THE DIAGNOSTIC VALUE OFANTIBODIES TO CCP IN JUVENILE RHEUMATOIDARTHRITIS PATIENTS HAS NOT BEEN DETERMINED.ANTIBODIES TO CENTROMERE OR SS-A AND MYELOMAIGG MAY BE REACTIVE IN THIS ASSAY. REF VALUES NEGATIVE < 3 U/ML POSITIVE >=3 U/MLPerformed By: #### CITAB ####[facility], [place] [address]EYZ-U34 TYPINGon 30-25-0771ZXI-B27 TYPINGNegativeNoNorth Suburban Medical Center Comment on above:Result Comment: This test was developed without FDA review. The test performancecharacteristics were defined and validated by the [facility] HLA LaboratoryDepartment of Pathology, under the accreditation guidelines of [facility]. Performed By: #### HLB27 ####[facility], [place] [address]R-MMIRIGMO PROTEINon 01-21-2018C reactive protein (CRP) 0.34 mg/dLNormalULyons Va Medical CenterComment on above:Result Comment: REF VALUE< 1.00Performed By: #### CRP ####[facility], [place] [address]KCEBBULXXH FACTORon 29-82-5971CWKFNOSCWY FACTOR<00Zbsfuy4 - 15Health[facility] Specialty Hospital of UnionComment on above:Performed By: #### RF ####[facility], [place] [address]PNZWQYDVRLGKH RATE, ERYTHROCYTEon 58-26-8740GZVXEZFITEQSI RATE, FALSFVJDEDP79 mm/hNormal0 - 20[facility] Special[facility] Hospital of UnionComment on above:Performed By: #### ESRWS ####[facility], [place] [address]Pt Panel Information [facility] Vital Signs Date TimeVital SignValuePerforming KcivzyvueHvsmvdev06-64-7449 15:14-0400Body djpaqa447.1 cmVijaya Pinto APRN Work Phone: [phone]10-27-2025 15:14-0400 Body mass index (BMI) [Ratio]24.7 kg/e3UzwukrVijaya Pinto APRN Work Phone: [phone]10-27-2025 15:14-0400 Body vvilehayxhr20.7 [degF]Vijaya Pinto APRN Work Phone: [phone]10-27-2025 15:14-040 Body hyhbqp37.38 kgVijaya Pinto APRN Work Phone: [phone]10-27-2025 15:14-0400 Diastolic blood zmnrgvaa38 mm[Hg]Vijaya Pinto APRN Work Phone: [facility]10-27-2025 15:14-0400 Heart rate72 /minVijaya Pinto APRN Work Phone: [facility]10-27-2025 15:14-0400 Respiratory rate19 /minVijaya Pinto SPAR MACHINE OPERATOR HELPER Work Phone: [facility]10-27-2025 15:14-0400 SaO2% (BldA) [Mass fraction]97 %Vijaya Pinto APRN Work Phone: [facility]10-27-2025 15:14-0400 Systolic blood norgnwps748 mm[Hg]Vijaya Pinto APRN Work Phone: [facility]08-28-2025 09:01-0400 Body mass index (BMI) [Ratio]23.6 kg/y8Llyhx Giovanna DO Work Phone: [facility] CenterMjhvnnxmbf76-71-3656 09:01-0400Body .32 kgCorey Giovanna DO Work Phone: [facility] CenterWnbjjsgvtm47-69-0149 09:01-0400Diastolic blood skidenzr18 mm[Hg]Kirby Giovanna DO Work Phone: [facility] CenterBniffaiidw08-42-3080 09:01-0400Systolic blood jiqejmgk391 mm[Hg]Kirby Giovanna DO Work Phone: [facility] CenterOlcjimednw88-87-4886 07:42-0400Body gtkoeq953.1 cmAservando Koenig SPAR MACHINE OPERATOR HELPER-MUSIC LEADER Work Phone: [facility]06-20-2025 07:42-0400Body mass index (BMI) [Ratio]23.73 kg/e7QouhpzrzuRivka Koenig SPAR MACHINE OPERATOR HELPER-MUSIC LEADER Work Phone: [facility]06-20-2025 07:42-0400Body hiuwbvyifwu51.81 [degF]Rivka Koenig SPAR MACHINE OPERATOR HELPER-MUSIC LEADER Work Phone: [facility]06-20-2025 07:42-0400Body qqhywe96.68 kgAleruben Koenig SPAR MACHINE OPERATOR HELPER-MUSIC LEADER Work Phone: [facility]06-20-2025 07:42-0400Diastolic blood wdwechuk70 mm[Hg]Rivka Koenig SPAR MACHINE OPERATOR HELPER-MUSIC LEADER Work Phone: [facility]06-20-2025 07:42-0400Heart rate 68 /minAleruben Koenig SPAR MACHINE OPERATOR HELPER-MUSIC LEADER Work Phone: [facility]06-20-2025 07:42-9214OeO1% (BldA) [Mass fraction]98 %Rivka Koenig APRN-MUSIC LEADER Work Phone: [facility]06-20-2025 07:42-0400Systolic blood mm[Hg]Rivka Koenig SPAR MACHINE OPERATOR HELPER-MUSIC LEADER Work Phone: [facility]06-06-2025 08:00-0400Body mass index (BMI) [Ratio]23.06 kg/s7Sqhlbbq BennyHocking [facility]06-06-2025 08:00-0400Body nggcuj49.87 kgShannon Bhupendra [facility]05-28-2025 08:53-0400Body azjwik133.1 cmSyed Hasan DO Work Phone: [facility]05-28-2025 08:53-0400Body mass index (BMI) [Ratio]24.36 kg/m2Syed Hasan DO Work Phone: [facility]05-28-2025 08:53-0400Body nafrpj43.41 kgSyed Hasan DO Work Phone: [facility]05-28-2025 08:53-0400Diastolic blood gvneafrd11 mm[Hg]Rob Hasan DO Work Phone: [facility]05-28-2025 08:53-0400Systolic blood pvcaqcxr610 mm[Hg]Rob Lombardo DO Work Phone: [facility]05-16-2025 09:00-0400Body geazor332.1 cmStefano Hinton PA Work Phone: [facility]05-16-2025 09:00-0400Body mass index (BMI) [Ratio]23.5 kg/m3SdekdStefano Vaughnis PA Work Phone: [phone]05-16-2025 09:00-0400Body asdflb12.05 kgStefano Vaughnis PA Work Phone: [phone] [place], [place] [address]2005-16-2025 09:00-0400Diastolic blood zlpemjtu39 mm[Hg]Stefano Hinton PA Work Phone: [facility]05-16-2025 09:00-0400Heart rate 66 /minStefano Vaughnis PA Work Phone: [phone]05-16-2025 09:00-0400Systolic blood lepgywzh929 mm[Hg]Stefano Vaughnis PA Work Phone: [phone]01-09-2025 08:36-0500Heart rate 67 /minKamaljit May [facility]01-09-2025 08:36-4953DyD7% (BldA) [Mass fraction]97 %Kamaljit May [facility]01-09-2025 08:36-0500 Diastolic blood dseenpno43 mm[Hg]Kamaljit aMy [facility]01-09-2025 08:36-0500Mean blood iazsibaj268 mm[Hg]Kamaljit May [facility]01-09-2025 08:36-0500 Systolic blood yxmmjwtt041 mm[Hg]Kamaljit May [facility]01-09-2025 08:20-0500 Diastolic blood jhrsyjfg45 mm[Hg]Kamaljit May [facility]01-09-2025 08:20-0500Heart rate89 /minBrahenry Mariah [facility]01-09-2025 08:20-8698LaN9% (BldA) [Mass fraction]97 %Kamaljit May [facility]01-09-2025 08:20-0500 Systolic blood smqriuwa332 mm[Hg]Kamaljit May [facility]01-09-2025 07:23-0500Heart rate82 /minBrahenry Mariah [facility]01-09-2025 07:23-8720XdZ6% (BldA) [Mass fraction]100 %Kamaljit May [address] [place], [place] [address]01-09-2025 07:22-0500Body ahhsmcovwae38.06 [degF]Kamaljit May [address] [place], [place] [address]01-09-2025 07:22-0500 Diastolic blood pqchgrlu12 mm[Hg]Kamaljit May [facility]01-09-2025 07:22-0500Mean blood xdxqnveh86 mm[Hg]Kamaljit May [facility]01-09-2025 07:22-0500 Systolic blood nltutwzg231 mm[Hg]Kamaljit Mariah [address] [place], [place] [address]01-09-2025 07:21-0500 Respiratory rate14 /minBrahenry Mariah [address] [place], [place] [address]12-19-2024 14:46-0500Body mxpnxa970.1 Jamal [facility] MD Work Phone: [facility]12-19-2024 14:46-0500Body mass index (BMI) [Ratio]23.8 kg/c4LwtusEsthela Wilson MD Work Phone: [facility]12-19-2024 14:46-0500Body kyqrrg30.86 kgEsthela Wilson MD Work Phone: [facility]12-19-2024 14:46-0500Diastolic blood retefgau19 mm[Hg]Esthela Wilson MD Work Phone: [facility]12-19-2024 14:46-0500Heart rate 56 /minEsthela Wilson MD Work Phone: [facility]12-19-2024 14:46-0500Systolic blood eiyjdbjg119 mm[Hg]Esthela [facility] MD Work Phone: [facility]12-12-2024 13:12-0500Body roswqkjmpsf57.01 [degF]Zanemattie Shelley CONCRETE PUMP OPERATOR HELPER Work Phone: [facility] CenterNwejuujxea19-43-1161 13:12-0500Diastolic blood iaxduxhj26 mm[Hg]Zane Shelley CONCRETE PUMP OPERATOR HELPER Work Phone: [phone] CenterCcyflfasqw90-77-6033 13:12-0500Heart rate78 /min Zane Shelley CONCRETE PUMP OPERATOR HELPER Work Phone: [facility] CenterOwbornjmvk59-31-7055 13:12-0500Respiratory rate20 /minZane Shelley CONCRETE PUMP OPERATOR HELPER Work Phone: [place] [address]Qwytzynaxt72-16-7511 13:12-9088ZoN7% (BldA) [Mass fraction]99 %Zane Shelley CONCRETE PUMP OPERATOR HELPER Work Phone: [place] [address]Qveyjmegbj12-53-2121 13:12-0500Systolic blood bdopwwrz379 mm[Hg]Zane Shelley CONCRETE PUMP OPERATOR HELPER Work Phone: [place] [phone] 14:20-0500Body mass index (BMI) [Ratio]23.93 kg/y1Xcvbj Giovanna DO Work Phone: [place] [address]Iovjcsjvxr18-45-6007 14:20-0500Body pwegxw05.22 kgCorey Giovanna DO Work Phone: [place] [address]Hdigdtnbdh02-21-7069 14:20-0500Diastolic blood kjgqqdbi77 mm[Hg]Kirby Heredia DO Work Phone: [place] [address]Jsqbzlxuvp75-18-4588 14:20-0500Systolic blood icfoobdb794 mm[Hg]Kirby Giovanna DO Work Phone: [place] [address]Ktadyboobn44-28-0424 11:37-0500Body vogsre361.4 cmLidia Najera DO Work Phone: 1(812)[address] [place] [address]-20-2024 11:37-0500Body mass index (BMI) [Ratio]24.25 kg/m2Lidia Najera DO Work Phone: 1(988)[address] [place] [address]-20-2024 11:37-0500Body .13 kgLidia Najera DO Work Phone: 1(611)[facility] [place], [place] [address]Ukpkycjkfc76-46-1465 11:37-0500Diastolic blood nkrkuibx16 mm[Hg]Lidia Najera DO Work Phone: 1(569)[address] [place] [address]-20-2024 11:37-0500Heart rate64 /min Lidia Najera DO Work Phone: 1(147)[facility] [place] [address]-20-2024 11:37-8090EdA4% (BldA) [Mass fraction]98 %Lidia Najera DO Work Phone: 1(707)[address] [place] [address]-20-2024 11:37-0500Systolic blood pagsrpgu558 mm[Hg]Lidia Najera DO Work Phone: 1(579)[address] [place] [address]-18-2024 10:18-0500Diastolic blood prxxkogh21 mm[Hg]Amy Volta [facility]11-18-2024 10:18-0500Heart rate61 /minAmanmayo Volta [facility]11-18-2024 10:18-0500Mean blood nbrldflo401 mm[Hg]Amy Volta [facility]11-18-2024 10:18-0500 Respiratory rate14 /minAmanda Durbin [facility]11-18-2024 10:18-0500 Systolic blood mm[Hg]Amy Ramakrishna [facility]11-14-2024 12:30-0500Blood Pressure LocationJENNIFER CORTNEY [facility]11-14-2024 12:30-0500Body emugwpmvrcd22.6 [degF]HARDY BARR [facility]11-14-2024 12:30-0500Diastolic blood wkbyakkt09 mm[Hg]HARDY BARR [facility]11-14-2024 12:30-0500Heart rate79 /minJENNIFER CORTNEY [facility]11-14-2024 12:30-0500Respiratory rate18 /minJENNIFER CORTNEY [facility]11-14-2024 12:30-0500Systolic blood ryualsif999 mm[Hg]HARDY BARR [facility]11-04-2024 13:07-0500Body mass index (BMI) [Ratio]23.93 kg/z4Jpjph Giovanna DO Work Phone: [facility] CenterBmwsqaswxq17-91-7355 13:07-0500Body pnevxb85.22 kgCorey Giovanna DO Work Phone: [facility] CenterCnknghknea43-09-1542 13:07-0500Diastolic blood zymsnvwp24 mm[Hg]Kirby Giovanna DO Work Phone: 1(419)483-[address] [place], [place] [address]Mwhcavrntn50-03-4196 13:07-0500Systolic blood mm[Hg]Kirby Giovanna DO Work Phone: 1(985)[address] [place], [place] 4245809-26-2024 10:04-0400Body mass index (BMI) [Ratio]24.32 kg/p4Ijkcm Giovanna DO Work Phone: 1419[facility] [place], [place] [address]Mjteuakuyj24-93-4530 10:04-0400Body .31 kgCorey Giovanna DO Work Phone: 1419)[address] [place], [place] 4245809-26-2024 10:04-0400Diastolic blood ticpfyfa15 mm[Hg]Kirby Giovanna DO Work Phone: 1(389)[address] [place], [place] 4245809-26-2024 10:04-0400Systolic blood qgaamyvn021 mm[Hg]Kirby Giovanna DO Work Phone: 1(911)[address] [place], [place] 4245809-12-2024 09:12-0400Body blhcot956.4 cmCorey Giovanna DO Work Phone: [phone])[address] [place], [place] 4245809-12-2024 09:12-0400Body mass index (BMI) [Ratio]22.78 kg/c3Kqbyw Giovanna DO Work Phone: 1(015)[address] [place], [place] 4245809-12-2024 09:12-0400Body rhqyci50.05 kgCorey Giovanna DO Work Phone: 1(289)[facility] [place], [place] [address]Oxzwrajiun49-10-1228 09:12-0400Diastolic blood hhugtqlx73 mm[Hg]Kirby Giovanna DO Work Phone: 1(714)[address] [place], [place] 4245809-12-2024 09:12-0400Systolic blood ctmqmjoq958 mm[Hg]Kirby Giovanna DO Work Phone: 1(834)[address] [place], [place] 4245803-28-2024 11:03-0400Body afiikr322.1 cmAlexarnel Koenig SPAR MACHINE OPERATOR HELPER-MUSIC LEADER Work Phone: [facility]03-28-2024 11:03-0400Body mass index (BMI) [Ratio]24.46 kg/j3Qodyaiychruben Koenig SPAR MACHINE OPERATOR HELPER-MUSIC LEADER Work Phone: [facility]03-28-2024 11:03-0400Body ivbderbfnld62.81 [degF]Rivka Koenig SPAR MACHINE OPERATOR HELPER-MUSIC LEADER Work Phone: [facility]03-28-2024 11:03-0400Body ntytge17.68 kgAleruben Koenig SPAR MACHINE OPERATOR HELPER-MUSIC LEADER Work Phone: [facility]03-28-2024 11:03-0400Diastolic blood kquospwt89 mm[Hg]Rivka Koenig SPAR MACHINE OPERATOR HELPER-MUSIC LEADER Work Phone: [facility]03-28-2024 11:03-0400Heart rate 76 /minAleruben Koenig SPAR MACHINE OPERATOR HELPER-MUSIC LEADER Work Phone: [facility]03-28-2024 11:03-4978OhV3% (BldA) [Mass fraction]97 %Rivka Koenig SPAR MACHINE OPERATOR HELPER-MUSIC LEADER Work Phone: [facility]03-28-2024 11:03-0400Systolic blood lufuzuwh393 mm[Hg]Rivka Koenig SPAR MACHINE OPERATOR HELPER-MUSIC LEADER Work Phone: [facility]03-28-2024 08:55-0400Body .1 cmMacinda Barrett MD Work Phone: [facility]03-28-2024 08:55-0400Body mass index (BMI) [Ratio]24.11 kg/n5LcvorlbNichol Barrett MD Work Phone: [facility]03-28-2024 08:55-0400Body izmpwc33.73 kgNichol Barrett MD Work Phone: [facility]03-28-2024 08:55-0400Diastolic blood rtlruiwp90 mm[Hg]Nichol Barrett MD Work Phone: [facility]03-28-2024 08:55-0400Heart rate 65 /minNichol Barrett MD Work Phone: [facility]03-28-2024 08:55-0400Systolic blood lekrbcgk302 mm[Hg]Nichol Barrett MD Work Phone: [facility]03-11-2024 11:26-0400Body cdjlef008.37 cmALESLEY Lilly Millie Work Phone: [phone]85[facility] [place]03-11-2024 11:26-0400 Body mass index (BMI) [Ratio]23.7 kg/m2DYLAN Carringtonsler Work Phone: 1(776)[address]03-11-2024 11:26-0400 Body onpjoglrfex56.2 [degF]DYLAN Burnettuessler Work Phone: 1(413)[address]03-11-2024 11:26-0400 Body yyzqug62.77 kgDYLAN Carringtonsler Work Phone: 1(034)[address] [place], [place] [address]1103-11-2024 11:26-0400 Heart rate66 /minDYLAN Carringtonsler Work Phone: 1(363)[address]03-11-2024 11:26-0400 Respiratory rate16 /minDYLAN Carringtonsler Work Phone: 1(154)[address] [place], [place] [address]1103-11-2024 11:26-0400 SaO2% (BldA) [Mass fraction]97 %DYLAN Lilly Millie Work Phone: 1(292)[address]12-28-2023 08:01-0500 Body mass index (BMI) [Ratio]25.19 kg/w5Hqjulffafruben Koenig APRN-MUSIC LEADER Work Phone: [facility]12-28-2023 08:01-0500Body adggqxyzthi90.01 [degF]Rivka Koenig APRN-MUSIC LEADER Work Phone: [facility]12-28-2023 08:01-0500Body ciytot03.67 kgAlexandra Koenig SPAR MACHINE OPERATOR HELPER-MUSIC LEADER Work Phone: 1(580)785-[address] [place] [address] [employer] CapitalOsokox53-38-4103 08:01-0500Diastolic blood wfokzhpx85 mm[Hg]Rivka Koenig SPAR MACHINE OPERATOR HELPER-MUSIC LEADER Work Phone: 1(944)389-[address] [place] [address] [employer] Odoyko24-88-6136 08:01-0500Heart rate 86 /minAleruben Koenig SPAR MACHINE OPERATOR HELPER-MUSIC LEADER Work Phone: 1(885)437-[address] [place] [address] [employer] Ptztlk82-57-5108 08:01-4368MiZ0% (BldA) [Mass fraction]98 %Rivka Koenig SPAR MACHINE OPERATOR HELPER-MUSIC LEADER Work Phone: 1(835)862-[address] [place] [address] [employer] Bqkzrm55-73-0410 08:01-0500Systolic blood mm[Hg]Rivka Koenig SPAR MACHINE OPERATOR HELPER-MUSIC LEADER Work Phone: 1(346)254-[address] [place] [address] [employer] Nmlqjk03-54-2277 09:49-0400Body berkmy440.4 cmJason Genin DO Work Phone: [facility]09-01-2023 09:49-0400Body fuxanp40.56 kgJason Genin DO Work Phone: [facility]06-29-2023 09:30-0400Body hoyubr569.37 cmThomas Felter Other [employer] Other 06-29-2023 09:30-0400Body mass index (BMI) [Ratio]33.1 kg/q0Izhncs Felter Other [employer] Other 06-29-2023 09:30-0400Body .63 kgThomas Felter Other [employer] Other 02-09-2023 10:30-0500Body ntoqrz493.37 cmThomas Felter Other [employer] Other 02-09-2023 10:30-0500Body mass index (BMI) [Ratio]42.6 kg/i8Kscvon Felter Other [employer] Other 02-09-2023 10:30-0500Body .94 kgThomas Felter Other [employer] Other 01-16-2023 10:15-0500Body uiuvfj771.4 cmJason Genin DO Work Phone: [facility] Blakef55-68-2583 10:15-0500Body obsxub329.94 kgJason Genin DO Work Phone: [facility] Uasfbi45-18-8419 10:45-0500Body jlpvwy592.37 cmThomas Felter Other [employer] Other 01-09-2023 10:45-0500Body mass index (BMI) [Ratio] 41.78 kg/o3Kedwik Felter Other [employer] Other 01-09-2023 10:45-0500Body pezots186.67 kgThomas Felter Other [employer] Other 12-19-2022 09:56-0500Body oxuztz337.4 cmJason Genin DO Work Phone: [facility] Znchuq49-95-9801 09:56-0500Body difxch998.94 kgJason Genin DO Work Phone: [facility] Ildsor55-28-2235 11:15-0500Body adulxo023.37 cmThomas Felter Other [employer] Other 08-16-2022 11:00-0400Diastolic blood fncwezfl38 mm[Hg] DYLNA Pinto Work Phone: [facility]08-16-2022 11:00-0400 Heart rate72 /minAPRTera Burnettuessler Work Phone: 1(854)[address] [place], [place] 314[address]8-16-2022 11:00-0400 Respiratory rate20 /minDYLAN Carringtonsler Work Phone: 1(715)[address] [place], [place] 314[address]8-16-2022 11:00-0400 SaO2% (BldA) [Mass fraction]100 %DYLAN Pinto Work Phone: 1(720)[address] [place], [place] 314[address]8-16-2022 11:00-0400 Systolic blood rnnukffy398 mm[Hg]DYLAN Pinto Work Phone: 1(295)[address] [place], [place] 314[address]8-16-2022 10:22-0400 Inhaled oxygen flow rate3 L/minDYLAN Carringtonsler Work Phone: 1(991)[address] [place], [place] 314[address]8-16-2022 09:14-0400 Body unwwbi453.37 cmAPRTera Pinto Work Phone: 1(201)[address] [place], [place] 314[address]8-16-2022 09:14-0400 Body aayfpn719.93 kgAPRTera Pinto Work Phone: 1(115)[address] [place], [place] 314[address]7-18-2022 10:00-0400 Body obalhf836.37 cmJustdanay Galdamez Other [employer] Other 07-18-2022 10:00-0400Body mass index (BMI) [Ratio] 41.62 kg/u1Ujqagjdanay Galdamez Other [employer] Other 07-18-2022 10:00-0400Body .21 kgJustdanay Galdamez Other [employer] [facility] [employer] Other 07-12-2022 09:06-0400Diastolic blood yimawgyl78 mm[Hg] DYLAN Carringtonsler Work Phone: 1(126)[address]07-12-2022 09:06-0400 Heart rate62 /minAPRTera Pinto Work Phone: 1(573)[address] [place], [place] [address]7-12-2022 09:06-0400 Respiratory rate20 /minDYLAN Pinto Work Phone: 1(709)[address] [place], [place] 314[address]7-12-2022 09:06-0400 SaO2% (BldA) [Mass fraction]100 %DYLAN Pinto Work Phone: 1(573)[address] [place], [place] 314[address]7-12-2022 09:06-0400 Systolic blood hiyopzgt025 mm[Hg]DYLAN Pinto Work Phone: 1(995)[address] [place], [place] 314[address]7-12-2022 08:29-0400 Inhaled oxygen flow rate3 L/minDYLAN Pinto Work Phone: 1(309)[address] [place], [place] 314[address]7-12-2022 07:36-0400 Body thleoe420.37 cmAPRTera Pinto Work Phone: 1(568)[address] [place], [place] 314[address]7-12-2022 07:36-0400 Body mass index (BMI) [Ratio]42.9 kg/m2DYLAN Pinto Work Phone: 1(250)[address] [place], [place] 314[address]7-12-2022 07:36-0400 Body csdjri081.84 kgDYLAN Pinto Work Phone: 1(548)[address] [place], [place] 314[address]2-23-2022 11:45-0500 Body liziyo960.37 cmThomas Felter Other [employer] Other 02-23-2022 11:45-0500Body mass index (BMI) [Ratio] 41.67 kg/y5Dcnkbv Felter Other [employer] Other 02-23-2022 11:45-0500Body yvnnqu877.35 kgThomas Felter Other [employer] Other 08-26-2021 08:16-0400Body .1 cmNo PCP [facility] Work Phone: 1(246) 713-924208-26-2021 08:16-0400Body mass index (BMI) [Ratio] 40.98 kg/m2No [facility] Work Phone: 1(936) 922-841208-26-2021 08:16-0400Body surface area Derived from formula2.16 m2No [facility] Work Phone: 1(767) 766-109908-26-2021 08:16-0400Body frftxu553.7 kgNo [facility] Work Phone: 1(839) 100-952008-19-2021 15:48-0400Body ehobcp025.37 cmNo [facility] Work Phone: 1(612) 109-489308-19-2021 15:48-0400Body mass index (BMI) [Ratio] 41.46 kg/m2No [facility] Work Phone: 1(317) 506-584408-19-2021 15:48-0400Body surface area Derived from formula2.2 m2No [facility] Work Phone: 1(586) 636-367908-19-2021 15:48-0400Body fthloq171.76 kgNo [facility] Work Phone: Encounters Encounter DateEncounter TypeCare ProviderFacilityStart: 06-28-2025 End: 08-12-4334topntgzgecCkokgxPadilla Pinto APRN Work Phone: -[facility] ClydeStart: 06-28-2025 End: 22-56-3992Yhcjzts encounter procedureAmy Benítez SPAR MACHINE OPERATOR HELPER-[facility] Work Phone: Start: 06-04-2025 End: 20-81-1818IdwriuFpsmfnp M Fourman MD Work Phone: [facility] General Surgery-BariatricComment on above:Malnutrition following gastrointestinal surgery; Postsurgical malabsorption; History of gastric bypassStart: 05-20-2025 End: 04-08-9459zrbwwepvjuQpofyiPadilla Pinto APRN Work Phone: [facility] Work Phone: Start: 05-20-2025 End: 58-09-2190Hsticds encounter procedureEd Fernández MD-[facility] Work Phone: Start: 04-29-2025 End: 39-03-6807Bnyoqd flowsheetCorey Giovanna DO Work Phone: [facility] [place] OBGYNStart: 04-29-2025 End: 91-99-7721Ptfnoz flowsheetCorey Giovanna DO Work Phone: noMS [place] OBGYNStart: 04-29-2025 End: 43-31-0171otcfisuablYRFFG FAZIONot AvailableStart: 04-29-2025 End: 68-70-4866Ixpnir outpatient visit 15 minutesCorey Giovanna DO Work Phone: [facility] [place] OBGYNComment on above:HPV exposure; Menorrhagia with irregular cycleStart: 04-26-2025 End: 99-14-8515Jtjzz abstractingBrent Jacinto Hall DO Work Phone: [facility] CardiologyStart: 03-26-2025 End: 25-69-3191Ybafyrvwt encounterMarisol Dayday [place] OBGYNStart: 03-01-2025 End: 73-52-4171Kmxhi abstractingScanning Provider ExternalProMedica Physicians CardiologyStart: 02-28-2025 End: 48-32-2345Aeanfg OnlySyed S Grupo DO Work Phone: [facility], A Department [facility] HospitalComment on above:Irritable bowel syndrome with constipation (Primary Dx)Start: 02-19-2025 End: 35-87-3574Qcggwb outpatient visit 25 minutesAleruben Koenig APRN-MUSIC LEADER Work Phone: [facility] Family MedicineComment on above: ADHD (attention deficit hyperactivity disorder), inattentive type (Primary Dx) Start: 02-19-2025 End: 47-78-4637hujqfxrwnhFRUIVGNBTMethodist Children's Hospital Ambulatory PPGStart: 56-34-6827eeskcswwauKCMAIGLEGMethodist Children's Hospital Ambulatory PPGStart: 02-05-2025 End: 93-40-4512ykzoahdmvmDeozmij SorSp[facility] Comment on above:Dietary counseling and surveillance (Primary Dx); History of gastric bypassStart: 01-27-2025 End: 65-88-7942Rschalyss [facility] Hospital[facility] Work Phone: [facility], [facility] Department of [facility] Hospitaltart: 01-27-2025 End: 80-75-9344nmszlzqvkqSXOTH M FERRFort Memorial Hospital HospitalStart: 01-27-2025 End: 69-38-1206nyplrdxsukCZDQQPWZWKettering Health – Soin Medical Centertart: 01-27-2025 End: 64-74-2210Apjjhl outpatient new 45 minutesSyed S Grupo MARCH Work Phone: [facility], [facility] Department of [facility] HospitalComment on above:Change in bowel habits (Primary Dx); Malnutrition following gastrointestinal surgery; Postsurgical malabsorption; History of gastric bypass; Pain of upper abdomenStart: 66-90-5971lihhzcssoiQKNJ S HASANAvita [facility] HospitalStart: 01-15-2025 End: 46-73-7531rzpzyjoaomMAEFB M FERRISAvita Health System [facility] HospitalStart: 01-15-2025 End: 40-79-7200Tdxbmb outpatient visit 25 Declan Barrett MD Work Phone: [facility] General Surgery-BariatricComment on above:History of gastric bypass (Primary Dx); Malnutrition following gastrointestinal surgery; Postsurgical malabsorption; Iron excess; Zinc deficiency; Constipation, unspecified constipation type; Postprandial abdominal pain in right upper quadrantStart: 01-15-2025 End: 61-80-2849krmfohrfumYGOED M FERRISAvita Health System [facility] Hospital HospitalStart: 30-85-0464nczdzhnareOENZAC L [facility] East Campustart: 01-12-2025 End: 39-75-1227AkkylsBo [place] [facility] General Surgery-BariatricComment on above:Malnutrition following gastrointestinal surgery (Primary Dx); Postsurgical malabsorption; History of gastric bypassStart: 09-25-2024 End: 06-69-1957wqxtaodvegEaxyvl X OrzechFacility:EU Elitart: 09-10-2024 End: 75-75-7847qiprcvgrpxSarnuvxi A. JonesFacility:FTMCStart: 09-10-2024 End: 99-98-4317Xhri ManagementKamaljit May [facility] Start: 08-20-2024 End: 75-23-5205Sccylv outpatient [facility] minutesEsthela [place] MD Work Phone: [facility] Re[facility]ive/Plastic [facility] Comment on above:Panniculitis (Primary Dx); History of gastric bypassStart: 08-20-2024 End: 54-86-6155csjydxvfsoMFVGX F KOLTZParkwood Hospital Ambulatory PPGStart: 08-13-2024 End: 20-20-7838oeewglngmuPROFQYM N AUSTINNot AvailableStart: 08-13-2024 End: 45-57-3335Lixtmum encounter statusLinmiguel ángel Shelley CONCRETE PUMP OPERATOR HELPER Work Phone: [facility] HealthcareStart: 08-13-2024 End: 03-95-0029Umytsgke preventive med est patient 18-39 yrsLinmiguel ángel Shelley CONCRETE PUMP OPERATOR HELPER Work Phone: [facility] SWS UCComment on above:Physical exam, pre- employment (Primary Dx); Encounter for wellness examination in adultStart: 08-03-2024 End: 28-23-1377cuebjwkpwrKZCBFKWY E PERRYFacility:FTMCStart: 07-28-2024 End: 90-91-3227Hifjlyw encounter procedureCorey Giovanna DO Work Phone: [facility] BCP OBComment on above:Nexplanon removalStart: 07-22-2024 End: 60-82-7005Udsnbc flowsheetLidia Najera DO Work Phone: [facility] BWJeyson GENSStart: 07-22-2024 End: 02-78-2251Hljtkw flowsheetLidia Najera DO Work Phone: [facility] BWJeyson GENSStart: 07-22-2024 End: 04-16-8460Nwyrrj outpatient new 30 minutesKyle Suzy DO Work Phone: [facility] BWM GENSComment on above:Other constipation (Primary Dx); Rectal bleeding; Internal hemorrhoidsStart: 07-22-2024 End: 92-43-7050ulvihvsqbtUDFZ DUCKTRINot AvailableStart: 07-20-2024 End: 98-61-6410zfrwevybkwUQIS NONEFacility:FTMCStart: 07-20-2024 End: 51-05-7526Cxptbck encounter procedureAmanda Nu Mine [facility] Start: 07-17-2024 End: 52-77-2852Wsvjhwlts Result EncounterCorey Giovanna DO Work Phone: [facility] External Department UnsolicitedStart: 07-17-2024 End: 04-59-8707Pjehizeti Result EncounterCorey Giovanna DO Work Phone: [facility] External Department UnsolicitedStart: 07-17-2024 End: 25-16-6934yusggwrgzrZsrsih A Schuessler SPAR MACHINE OPERATOR HELPER Work Phone: [facility] Work Phone: Start: 07-17-2024 End: 24-84-0965Ehgofaii Lalit Pinto SPAR MACHINE OPERATOR HELPER Work Phone: [facility]-LAB Path Spec [place] HospStart: 07-16-2024 End: 11-58-8759zmiqdwatanIdpzs R FAZIOFacility:EU BellevueStart: 07-16-2024 End: 41-68-4703Eikswpo encounter procedureJENNIFER E CORTNEY [facility] start: 07-13-2024 End: 36-54-3825ZpvuebXskpwpueArash Chiu PA-C Work Phone: [facility] General Surgery-BariatricComment on above:Malnutrition following gastrointestinal surgery; History of gastric bypass; Postsurgical malabsorption; Vitamin B12 deficiencyStart: 07-10-2024 End: 32-53-7756Hwojuqosc Result EncounterCorey Giovanna DO Work Phone: [facility] External Department UnsolicitedStart: 07-10-2024 End: 42-34-2845Gdrobcgrg Result EncounterCorey Giovanna DO Work Phone: [facility] External Department UnsolicitedStart: 07-06-2024 End: 66-18-9550Wepojl flowsheetCorey Giovanna DO Work Phone: [facility] BCP OBStart: 07-06-2024 End: 40-84-7573Rwnomu flowsheetCorey Giovanna DO Work Phone: [facility] BCP OBStart: 07-06-2024 End: 23-41-9245Ccngqjtgi Result EncounterCorey Giovanna DO Work Phone: [facility] External Department UnsolicitedStart: 07-06-2024 End: 93-79-9667Eoxcayl encounter procedureCorey Giovanna DO Work Phone: noms HealthcareStart: 07-06-2024 End: 68-68-8141Mfruluhr preventive med est patient 18-39 yrsCorey Giovanna DO Work Phone: [facility] BCP OBComment on above:Well woman exam with routine gynecological examStart: 07-06-2024 End: 35-99-6352kgznzacbrrFNHEU FAZIONot AvailableStart: 05-28-2024 End: 41-65-2488dfsbhufaidDbsus FazioFacility:[facility] Start: 05-28-2024 End: 56-79-0020Sxtczgco Lalit Carringtondonald RICHARDSON Work Phone: [facility]-LAB Path Spec [place] HospStart: 05-28-2024 End: 98-24-8670Hlgbyzh encounter procedureCorey Giovanna DO Work Phone: [facility] OBComment on above:Pre-op examination; Request for sterilization; Menorrhagia with regular cycle; Abnormal uterine bleeding (AUB); Pelvic pain in femaleStart: 05-28-2024 End: 41-00-7816Eunkkdducxlqu examination doneCorey Giovanna DO Work Phone: [facility] HealthcareStart: 05-28-2024 End: 53-14-2584biewfyluwmXHJKF FAZIONot AvailableStart: 05-14-2024 End: 51-69-0239Mlqwop flowsheetCorey Giovanna DO Work Phone: [facility] OBStart: 05-14-2024 End: 77-58-4147Egneym flowsheetCorey Giovanna DO Work Phone: [facility] OBStart: 05-14-2024 End: 01-82-0466Vjhlyaadx Result EncounterCorey Giovanna DO Work Phone: [facility] External Department UnsolicitedStart: 05-14-2024 End: 18-62-3309Upnnba outpatient visit 15 minutesCorey Giovanna DO Work Phone: [facility] OBComment on above:Menorrhagia with regular cycle; Urinary frequencyStart: 05-14-2024 End: 88-33-5716ymayelcyhlTKPEL FAZIONot AvailableStart: 05-12-2024 End: 53-81-1765MtryvbUvujkcxxArash Chiu PA-C Work Phone: [facility] General Surgery-BariatricComment on above:Postsurgical malabsorption; Malnutrition following gastrointestinal surgery; History of gastric bypassStart: 01-16-2024 End: 77-33-4792Svukbz OnlyRivka Koenig SPAR MACHINE OPERATOR HELPER-MUSIC LEADER Work Phone: [facility] Family MedicineStart: 11-28-2023 End: 18-14-5397Nzojyq outpatient visit 15 Declan Barrett MD Work Phone: [facility] General Surgery-BariatricComment on above:Migraine with aura and without status migrainosus, not intractable (Primary Dx); Malnutrition following gastrointestinal surgery; History of gastric bypass; Postsurgical malabsorption; Abdominal pannus; Localized adiposityAcne, unspecified acne type (Primary Dx); Chronic low back pain with sciatica, sciatica laterality unspecified, unspecified back pain laterality; S/P bariatric surgery; History of gastric bypass; [facility] careStart: 11-14-2023 End: 15-25-7747hbezgqamedSYKJ Judith A Schuessler Work Phone: [facility] Work Phone: Start: 11-14-2023 End: [id number] encounter procedureAPRTera Pinto Work Phone: [facility] Work Phone: Start: 11-11-2023 End: [id number] encounter procedureDYLAN Pinto Work Phone: [facility] [place] Work Phone: Start: 08-29-2023 End: [id number] outpatient visit 10 minutesRivka Koenig SPAR MACHINE OPERATOR HELPER-MUSIC LEADER Work Phone: [facility] MedicineComment on above: Chronic low back pain with sciatica, sciatica laterality unspecified, unspecified back pain laterality (Primary Dx); Personal history of fibromyalgia; Polina's disease; Postsurgical malabsorption; Drug-induced constipation; History of gastric bypassStart: [id number] encounterFrank Negron DO Work Phone: OrthopaedicsStart: 06-06-2023 End: [id number] A GENINFacility:[facility] Hospitaltart: 05-16-2023 End: 91-34-3383gdkrujzllqJsjedy Felter Other [employer] Other Start: 52-95-6432Murbxi outpatient visit 15 minutes Ed [facility] CreekStart: 05-03-2023 End: 67-98-2672ynuzxyzdawGZYOT A GENINFacility:[facility] HospitalStart: 05-03-2023 End: 68-17-1664Hlygwyc encounter procedureJason A Genin DO Work Phone: OrthopaedicsComment on above:Lateral epicondylitis of right elbow (Primary Dx)Start: 03-21-2023 End: 11-20-7088kruwogssdsJQRMA A GENINFacility:[facility] Hospitaltart: 03-13-2023 End: 83-19-1698murfbpxaepOovfku Felter Other [employer] Other Start: 09-90-1991Pdrdvhxxz encounterThomas FelterFPG [facility] OrthopedicsStart: 03-07-2023 End: 80-68-1950plsnmmupxvZrfektw Divencenzo OTR/L Work Phone: Lorxdj Occupational TherapyComment on above:Right elbow pain (Primary Dx); Lateral epicondylitis of right elbowStart: 03-01-2023 End: 39-53-7095hubedfsvaaKuvithi Divencenzo OTR/L Work Phone: Lorstf Occupational TherapyComment on above:Right elbow pain (Primary Dx); Lateral epicondylitis of right elbowMedical equipment scripts questionStart: 02-28-2023 End: 09-72-6829cyypokwpbbSpmxn A Genin DO Work Phone: noAdore Me Other Start: 42-33-6105Mqgntz outpatient visit 25 minutes Ed [facility] [place] CreekStart: 51-57-6325Lljrxch encounter procedureJason A Genin DO Work Phone: OrthopaedicsComment on above:Next week off, possible [employer] appointment?Start: 53-33-3698Jzcrnpoeq encounterThjosé Miller OrthopedicsStart: 02-22-2023 End: 89-27-5979chzslacpphWPSZWRD DIVENCENZOFacility:[facility] Start: 02-22-2023 End: 18-26-4297ubpwdzmzfzKcymhrx Divencenzo OTR/L Work Phone: Lorain Occupational TherapyComment on above:Right elbow pain (Primary Dx); Lateral epicondylitis of right elbowStart: 02-14-2023 End: 22-69-4946rjbsiqzqcaYIEAT A GENINFacility:[facility] Hospitaltart: 02-14-2023 End: 30-95-0447Vpgday outpatient visit 25 minutesJason A Genin DO Work Phone: OrthopaedicsComment on above:Right elbow pain (Primary Dx); Lateral epicondylitis of right elbowStart: 69-09-5404Fgfvmnquo encounterJason A Genin DO Work Phone: Orth and Rheum InstituteComment on above:OrdersStart: 01-10-2023 End: 90-05-8110xhcuvccjloJdwbgx [employer] Other [employer] Other Start: 53-53-3840Ycnczoqtf encounterThjosé Miller OrthopedicsStart: 12-20-2022 End: 06-24-5427wjwgqfvwztVDQCX A GENINFacility:[facility] Hospitaltart: 12-20-2022 End: 09-02-2639Icxzhhd encounter procedureJason A Genin DO Work Phone: OrthopaedicsComment on above:Right elbow pain (Primary Dx); Lateral epicondylitis of both elbowsStart: 33-72-8683ytwsipbncsWvt Provider OrthopaedicsComment on above:PRP injection - Right elbow - with Dr. Peraltatart: 16-80-1965F-mail encounter from [facility] Atiya [facility]art: 12-04-2022 End: 90-03-2044sdlmjekiecSPMSS A GENINFacility:[facility] HospitalStart: 12-04-2022 End: 17-29-3764Mgrtce outpatient visit 25 minutesJason A Genin DO Work Phone: Orthopaedics ClevelandComment on above:Lateral epicondylitis of both elbows (Primary Dx); Left elbow painStart: 11-16-2022 End: 81-68-8907npfnhxjpsnJGMSG A GENINFacility:[facility] HospitalStart: 86-81-5798dkncnsleovVJYEDI FELTERFacility:R6Bbhks: 10-12-2022 End: 21-31-4020nsadlrqjoqKkndat Felter Other [employer] Other Start: 77-46-4730Zrilxkozs encounterThomas FelterFPG Pep OrthopedicsStart: 10-11-2022 End: 20-07-4871khuamnncvsGryavc Felter Other [employer] Other Start: 95-14-9792Gcitir outpatient visit 25 minutes Ed [facility] CreekStart: 62-37-7616Usbnrgufy encounter Xander CrowelladiologyComment on above:AppointmentStart: 09-17-2022 End: 73-73-7096ckavrzwrnhGUDBT A GENINFacility:[facility] HospitalStart: 09-17-2022 End: 12-35-3425Ndczwqi encounter procedureJason A Genin DO Work Phone: OrthopaedicsComment on above:Lateral epicondylitis of both elbows (Primary Dx); Left elbow pain; Right elbow pain; FibromyalgiaStart: 09-11-2022 End: 25-42-2056nqnmhzkrfbHhlikau H King RT(R)RadiologyComment on above:Radiology MRIStart: 84-92-2191Gntxcdb encounter procedureAustin Nataly King ANDRIA(R)PIERCE BROWNING Start: 09-11-2022 End: 09-96-3097Zlawwjxgkz hospital visit by physicianDinora [facility] (1.5t) Work Phone: RadiologyComment on above:Lateral epicondylitis of both elbows [M77.11, M77.12]Start: 09-10-2022 End: 45-59-8616fmytemzwgvGrrwnz Felter Other [employer] Other Start: 84-22-5028Byesme outpatient visit 15 minutes Ed [facility] Bone CreStart: 08-20-2022 End: 48-44-7324milrpqfejnJAGAE A GENINFacility:[facility] Hospitaltart: 08-20-2022 End: 55-17-1841Mpomgrr encounter procedureFrank Negron DO Work Phone: OrthopaedicsComment on above:Left elbow pain (Primary Dx); Lateral epicondylitis of both elbows; Right elbow pain; Fibromyalgia; Anxiety; Sleep apnea, unspecified type; CervicalgiaStart: 08-06-2022 End: 30-16-1554dyatxtmiivRdgfhr Felter Other [employer] Other Start: 75-47-8636Bydpzd outpatient visit 25 minutes Ed [facility] Bone ekStart: 07-20-2022 End: 66-35-0735Ljnwtjd encounter procedureLester Gomez DO Work Phone: OrthopaedicsComment on above:Lateral epicondylitis of both elbows (Primary Dx)Start: 07-20-2022 End: 70-63-1135Zxppsrphbx hospital visit by physicianCarolyn Pettit 1 Work Phone: RadiologyComment on above:Pain [R52]Start: 06-25-2022 End: 96-39-3703jnzxpgilgeJrfwes Felter Other [employer] Other Start: 48-01-8819Rhabzwtas encounterThomas FelterFPG [facility] OrthopedicsStart: 05-14-2022(Procedure) ShortThomas FelterErie Dale [facility] Surgery CenterStart: 05-14-2022 End: 58-92-1263hbmhfhrsylGirbqx Felter Other noAdore Me Other Start: 05-04-2022 End: 28-71-5575cyzwcamrriHZ DOCTOR MISCFacility:S4Incrr: 04-30-2022 End: 90-02-8775qetbchidmkDsyo Fitt Other noAdore Me Other Start: 77-67-5135Oayifzvue encounterDawn [facility] ClinicStart: 04-24-2022 End: 06-52-0570sumaneqoyaVgwsjq Felter Other noAdore Me Other Start: 30-15-8223Oyfxvc outpatient visit 25 minutes Ed [facility] [place] CreekStart: 04-17-2022 End: 91-33-6705Igymfjjta to same day surgery centerAPRN Vijaya Pinto Work Phone: [facility] HealthStart: 03-27-2022 End: 66-11-6341bipzfarmemKylzzm Felter Other noAdore Me Other Start: 13-59-6269Fhzbay outpatient visit 25 minutes Ed [facility] [place]Start: 03-21-2022 End: 03-72-2542ljzeimsjjcNmmj Fitt Other [employer] Other Start: 14-27-0227Azyoadrgt encounterDawn [facility] ClinicStart: 03-19-2022 End: 22-41-8899wvhbxoamueUrojlj Kelley Other noAdore Me Other Start: 28-79-4979Isnhgp outpatient visit 15 minutes Abundio [facility] OrthopedicsStart: 03-13-2022(Procedure) ShortThomas [facility] OutPtStart: 03-13-2022 End: 72-51-7024vjyfzkllinWifoke Felter Other noAdore Me Other Start: 03-13-2022 End: 80-34-3768Rgseyzyoy to same day surgery centerAPRN Vijaya Pinto Work Phone: [facility] HealthStart: 01-15-2022 End: 48-19-2082gbnazvvkrlDdkqlt Felter Other [employer] Other Start: 60-61-4643Mjdffvpuf encounterThomas FelterFPNadya Miller OrthopedicsStart: 12-28-2021 End: 19-54-8723djfdbqylnzMddzeu Felter Other [employer] Other Start: 00-62-1816Rsobtu outpatient visit 25 minutes Ed FelterFPG [facility] [place] CreekStart: 11-16-2021 End: 26-89-9124glpmlzhhrrSascbf Felter Other [employer] Other Start: 72-83-6327Uwqksz outpatient visit 25 minutes Ed FelterFPG [facility] [place] CreekStart: 11-07-2021(Procedure) Short Ed [facility] OutPtStart: 11-07-2021 End: 73-62-3675ybebcmmyozKodxco Felter Other [employer] Other Start: 89-43-4657Mruvghk encounter procedureNo PCP FjzqJS-Ghtjyrw[facility]hbsnr [facility] Work Phone: start: 10-25-2021 End: 25-38-6881tzggthwhhfVuwcqg Felter Other noAdore Me Other Start: 09-62-7639Xdszge outpatient visit 25 minutes Ed FelterFPG [facility] [place] CreekStart: 10-17-2021(Procedure) Short Ed [facility] CenterStart: 10-17-2021 End: 49-53-1851nuiqcezxhsZshwvr Felter Other noAdore Me Other Start: 09-26-2021 End: 26-53-9104soduvggxptEucovw Felter Other [employer] Other Start: 21-76-9315Wkzwsviwy encounterThomas FelterFPG [facility]icsStart: 09-14-2021 End: 74-74-3908dldschmbryPnnojz Felter Other noAdore Me Other Start: 86-23-3356Rphecl consultation new/estab patient 60 minThomas FelterFPG [facility] CreekStart: 29-58-0308KBJECQb PCP DoekGP-Isawmqrvh-Ajjhae 170 DO Work Phone: Start: 92-17-9776Mkusaqk encounter procedureNo PCP JvetVT-Rshknye-Hpldbj [facility] Work Phone: start: 46-92-9892Ydgjhjx encounter procedureNo PCP CeoqFI-Sqdhvsk-Zvrait [facility] Work Phone: start: 22-62-5220MBSTJYIMHA, Provider: Allyn Mcdaniels, Status: Pen, Time: 9:30 AMNo PCP [facility] Work Phone: Start: 52-80-4610Cwlove outpatient new 45 minutesNo PCP ZarmQE-Xsafntx-Qctgp MAC2 303 Work Phone: Start: 29-59-3902Lhsrp UpdateNo PCP [facility]W 450 Work Phone: Start: 67-64-5920GCCAILg PCP [facility] Work Phone: Procedures DateProcedureProcedure DetailPerforming ClinicianStart: 71-65-4209Amxup depression screening assessmentAlexandra Koenig SPAR MACHINE OPERATOR HELPER-MUSIC LEADER Work Phone: Start: 53-11-4719Zizoul-up visitFollow-upSTEFANO VAUGHNISStart: 25-91-8141SRU INSERTION/REMOVAL OF CONTRACEPTIVE CAPSULECorey Giovanna DO Work Phone: Start: 14-85-9275HJR CBC WITH AUTO DIFFCorey Giovanna DO Work Phone: Start: 03-31-8585QNS PREG QUANT HCGCorey Giovanna DO Work Phone: Start: 35-25-4897Pjynzkb hysterectomyAmanda Nu Mine start: 01-23-5611JQ PELVIS W/ TRANSVAGINALCorey Giovanna DO Work Phone: Start: 94-18-1385MYJ,APTIMA HPV,AGE GDLNCorey Giovanna DO Work Phone: Start: 15-26-6178Yfemnxomvwb observation [Identifier] in Cervix by Cyto stainEsthela Wilson MD Work Phone: Start: 15-65-6649Anxif test visual color cmprsn methsCorey Giovanna DO Work Phone: Start: 07-29-7201VYR HEMOGLOBIN H1LBmgpk Giovanna DO Work Phone: Start: 14-36-4912Hbuzf dip stick/tablet rgnt non-auto w/o micrscpCorey Giovanna DO Work Phone: Start: 27-68-4731Bkaad X-ray of right hipAPRN Vijaya Pinto Work Phone: Start: 20-10-5119B-ray of lumbar spine, four viewsAPRTera Lilly Millie Work Phone: Start: 68-66-3660Wfyeo Strep (POC)DYLAN Burnettuessler Work Phone: Start: 62-87-8559Crfgxxkeqrn observation [Identifier] in Cervix by Cyto Lise Chiu PA-C Work Phone: Start: 86-05-1719Kxjf cerv/vag auto thin layer prep mnl screenCorey Giovanna DO Work Phone: Start: 05-03-2023 End: 60-72-4781Jl guidance needle placement img s&iJason A Genin DO Work Phone: Start: 65-61-3811Lvbjr depression screening assessment Rivka Koenig SPAR MACHINE OPERATOR HELPER-MUSIC LEADER Work Phone: start: 58-25-9415Oi compl joint r-t w/image documentationJason A Genin DO Work Phone: Start: 64-27-8730Hla pltlt plasma w/img harvest/preparationJason A Genin DO Work Phone: Start: 63-92-3063Yl compl joint r-t w/image documentationJason A Genin DO Work Phone: Start: 96-43-7984Wopnvx of stomachAmanda Durbin start: 09-11-2022 End: 47-09-8770Mkh any jt upper extremity w/o contrast matrlJason A Genin DO Work Phone: Start: 89-01-6474Mjdri elbow complete minimum 3 views Lester Gomez DO Work Phone: Start: 87-68-9077Cmoln anesthetic lumbar facet joint nerve blockAPRTera Vijaya Millie Work Phone: Start: 43-70-8529Ggviolrs injection of lumbar spine using fluoroscopic guidanceAPRN Vijaya Melgarler Work Phone: Start: 81-55-5223Gtpizttejjd diagnostic evaluationNo PCP NoneAdenoid excisionJENNIFER CORTNEY Adenoid excisionAmanda Volta comment on above:01/2001Bypass of stomachJENNIFER CORTNEY TonsillectomyNo PCP NoneTonsillectomyJENNIFER CORTNEY TonsillectomyAmanda Volta comment on above:01/2001 Plan of Treatment DateCare ActivityDetailAuthorStart: 76-57-3726Uaphafwbb for malignant neoplasm of cervixPap SmearRegency Hospital [facility] East SystemStart: 86-22-7681Egvechyya for malignant neoplasm of cervixPap SmearRegency Hospital [facility] SystemStart: 02-19-2026 Adult BMI ScreeningAdult BMI ScreeningRegency Hospital [facility] East SystemStart: 02-19-2026 Depression ScreeningDepression ScreeningRegency Hospital [facility] SystemStart: 02-19-2026 Tobacco ScreeningTobacco ScreeningRegency Hospital [facility] SystemStart: 78-86-0395Xgndw BMI ScreeningAdult BMI ScreeningRegency Hospital [facility] SystemStart: 34-13-0018Cuipb BMI ScreeningAdult BMI ScreeningRegency Hospital [facility] East SystemStart: 98-84-3495Oeuzxcy ScreeningTobacco ScreeningRegency Hospital [facility] East SystemStart: 65-06-1364Rkpgc BMI ScreeningAdult BMI ScreeningRegency Hospital [facility] East SystemStart: 13-21-1337Vwxfbzs ScreeningTobacco ScreeningRegency Hospital [facility] East SystemStart: 01-07-2026 End: 52-61-2587Ntjxlya encounter enzfvrvvj80/08/2026 8:30 AM EDT Office Visit [facility] [address] [facility] [address] [place] [phone] Nichol Barrett MD [address] [address] Amy Chiu PA-C [address] 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 History of gastric bypass Expected: 12/27/2025, Expires: 01/15/2026[facility] HospitalManhattan Labs SystemComment on above:Expected: 12/27/2025, Expires: 01/15/2026Start: 12-27-2025 End: 14-57-0973RmqcfzKoko guo S Lab Routine 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 History of gastric bypass Expected: 12/27/2025, Expires: 01/15/2026[facility] HospitalManhattan Labs SystemComment on above:Expected: 12/27/2025, Expires: 01/15/2026Start: 12-27-2025 End: 68-83-5117Kavzyhuovofugl vitamin b-12Vitamin B12 Lab Routine 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 History of gastric bypass Expected: 12/27/2025, Expires: 01/12/2040[facility] HospitalMan[facility] Labs SystemComment on above:Expected: 12/27/2025, Expires: 01/12/2040Start: 12-27-2025 End: 70-31-4700Figtgsrm [Mass/volume] in Serum or PlasmaFerritin Lab Routine 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 Hist ory of gastric bypass Expected: 12/27/2025, Expires: 01/15/2026[facility] SystemComment on above:Expected: 12/27/2025, Expires: 01/15/2026Start: 12-27-2025 End: 49-90-4918Ivrg and TIBCIron and TIBC Lab Routine 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 History of gastric bypass Expected: 12/27/2025, Expires: 01/12/2040Wilson HealthComment on above:Expected: 12/27/2025, Expires: 01/12/2040Start: 12-27-2025 End: 43-34-7552Mvrge panelLiver panel Lab Routine 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 History of gastric bypass Expected: 12/27/2025, Expires: 01/12/2040Wilson HealthComment on above:Expected: 12/27/2025, Expires: 01/12/2040Start: 12-27-2025 End: 92-95-1774Gxcbfbusnrg Hormone, intactParathyroid Hormone, intact Lab Routine 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 History of gastric bypass Expected: 12/27/2025, Expires: 01/12/2040Wilson HealthComment on above:Expected: 12/27/2025, Expires: 01/12/2040Start: 12-27-2025 End: 87-01-4672Bjgzoxs (Vitamin B1), WBThiamin (Vitamin B1), WB Lab Routine 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 History of gastric bypass Expected: 12/27/2025, Expires: 01/15/2026Wilson HealthComment on above:Expected: 12/27/2025, Expires: 01/15/2026Start: 12-27-2025 End: 04-87-1001Oqsqafg A (Retinol)Vitamin A (Retinol) Lab Routine 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 History of gastric bypass Expected: 12/27/2025, Expires: 01/15/2026Wilson HealthComment on above:Expected: 12/27/2025, Expires: 01/15/2026Start: 12-27-2025 End: 14-25-3789Gujvlbw D 25 hydroxyVitamin D 25 hydroxy Lab Routine 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 History of gastric bypass Expected: 12/27/2025, Expires: 01/12/2040[facility] Comment on above:Expected: 12/27/2025, Expires: 01/12/2040Start: 12-27-2025 End: 67-77-5697Vkqg, SerumZinc, Serum Lab Routine 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 History of gastric bypass Expected: 12/27/2025, Expires: 01/15/2026Wilson HealthComment on above:Expected: 12/27/2025, Expires: 01/15/2026Start: 65-62-3313Fmmyf BMI ScreeningAdult BMI ScreeningYadkin Valley Community Hospitaltart: 63-42-9716Yvwsafx ScreeningTobacco ScreeningYadkin Valley Community Hospitaltart: 07-12-2025 End: 07-91-2928Ynnifnm encounter ebbaaewra49/10/2025 2:20 PM EST Procedure Visit [facility] [address] [place] [address] Kirby Heredia DO [address] [place] [address] [place] [address] KT DHALIWALtart: 05-04-2025 End: 82-11-0726Qzuzjtc encounter qsbjzbvwu24/02/2025 3:00 PM EDT Office Visit [facility] [address] [place] [address] [place] [address] Zuhair Hall, DO [address] [place] [address], [address] [place] [address] [facility] Start: 74-92-3529Rsmfwcnmu vaccinationInfluenza VaccineWilson Health Start: 04-02-2025 End: 68-55-8105Rawnfbc encounter xehdkagum34/01/2025 7:40 AM EDT Office Visit [facility] [address] [facility] [place] [address] Rivka Koenig APRN-MUSIC LEADER [address] [place] [address], [place] [address] [facility] MedicineStart: 03-25-2025 End: 96-44-0328Tsvjtawru to same day surgery lqglnx9503/25/2025 1:30 PM EDT - 03/25/2025 2:00 PM EDT Surgery [facility] [address] [facility] [place] [phone] Rob Lombardo, DO [address] [facility] [facility] [address] [place] [address] ESOPHAGOGASTRODUODENOSCOPY DIAGNOSTIC [11409 (CPT )][facility] - EndoscopyComment on above:ESOPHAGOGASTRODUODENOSCOPY DIAGNOSTIC [85489 (CPT )] Start: 03-25-2025 End: 11-32-3717Gzjeniaxvongaxdkzijanwmxtm transoral diagnostic ESOPHAGOGASTRODUODENOSCOPY DIAGNOSTIC Malnutrition following gastrointestinal surgery K91.2 Change in bowel habits R19.4 Pain of upper abdomen R10.10 03/25/2025 1:30 PM EDTWELLNESS ENDOSCOPYStart: 41-69-5290Gtavnphlge hospital visit by wihpbjibl91/24/2025 1:30 PM EDT Hospital Encounter [facility] [address] [facility] [place] [phone] Rob Lombardo, DO [address] [facility], [facility] [address] [place] [address] [facility] - EndoscopyStart: 03-18-2025 End: 39-16-4140Lgcxylp encounter uwutkcigc37/17/2025 12:00 PM EDT Appointment [facility] - Endoscopy Pre and Post OP [address] [facility] [place] [phone] [phone] Hospital - [facility] Pre and Post OPStart: 03-08-2025 End: 67-83-6599Hdzxxat encounter eeroppxgo78/07/2025 9:30 AM EDT [facility] [address] [place] [address] Anjelica Fields MD [address] [place] [address] [facility] CardiologyStart: 02-19-2025 End: 76-29-5422Hwxvsim encounter osnsoelzh68/20/2025 7:40 AM EDT [facility] [address] [place] [address] [place] [address] Rivka Koenig, SPAR MACHINE OPERATOR HELPER-MUSIC LEADER [address] [facility] [address] [facility] Family MedicineStart: 02-05-2025 End: 79-90-2591zzzvdjiehf73/06/2025 8:00 AM EDT Support Visit [facility] [address] [place] [address] Petey De Guzman RDAdventHealth L[facility]leton DieticiansStart: 01-27-2025 End: 11-98-0091LI Upper gastrointestinal tract and Small bowel Single view W contrast POFluoroscopy upper GI with small bowel Imaging Routine Malnutrition following gastrointestinal surgery Change in bowel habits Expected: 01/27/2025, Expires: 01/27/2026[facility] Work Phone: Comment on above:Expected: 01/27/2025, Expires: 01/27/2026Start: 01-27-2025 End: 63-31-0614VK Abdomen APProSelect Medical Specialty [facility] SystemComment on above:Expected: 01/27/2025, Expires: 01/27/2026Start: 01-15-2025 End: 13-68-5498IT Abdomen limitedUltrasound abdomen limited Imaging Routine History of gastric bypass Postprandial abdominal pain inright upper quadrant Expected: 01/15/2025, Expires: 01/15/2026ProSumma Health Barberton CampusManhattan Labs SystemComment on above:Expected: 01/15/2025, Expires: 01/15/2026Start: 01-15-2025 End: 45-94-8454Qrnqzet encounter /16/2025 9:15 AM EDT Office Visit [facility] [address] [place] [address]. [address] [place] [address] Nichol Barrett MD [address] [address] Stefano Hinton PA [address] [facility] [address] [place] [address] [facility] Surgery-BariatricStart: 01-12-2025 End: 27-47-3751Engfnus [Mass/volume] in Serum or PlasmaCalcium Lab Routine 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 Histo ry of gastric bypass Expected: 01/12/2025, Expires: 01/12/2026[facility] Work Phone: Comment on above:Expected: 01/12/2025, Expires: 01/12/2026Start: 01-12-2025 End: 54-27-4753IMC W Auto Differential panel - BloodCBC auto differential Lab Routine Malnutrition following gastrointestinal surgery Postsurgical malab sorption History of gastric bypass Expected: 01/12/2025, Expires: 01/12/2026 [facility] SystemComment on above:Expected: 01/12/2025, Expires: 01/12/2026Start: 01-12-2025 End: 88-24-9567EmaqxtKoko guo S Lab Routine 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 History of gastric bypass Expected: 01/12/2025, Expires: 01/12/2026ProSumma Health Barberton CampusStudio Systems St[facility] SystemComment on above:Expected: 01/12/2025, Expires: 01/12/2026Start: 01-12-2025 End: 63-84-8706Xabpyjthizuxlo vitamin b-12Vitamin B12 Lab Routine 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 History of gastric bypass Expected: 01/12/2025, Expires: 01/12/2026Wilson HealthComment on above:Expected: 01/12/2025, Expires: 01/12/2026Start: 01-12-2025 End: 78-26-3854BbikrzRdwsmr Lab Routine 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 History of gastric bypass Expected: 01/12/2025, Expires: 01/12/2026Wilson HealthComment on above:Expected: 01/12/2025, Expires: 01/12/2026Start: 01-12-2025 End: 36-81-4134Fqvd [Mass/volume] in Serum or PlasmaIron Lab Routine 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 Historyof gastric bypass Expected: 01/12/2025, Expires: 01/12/2026Wilson HealthComment on above:Expected: 01/12/2025, Expires: 01/12/2026Start: 01-12-2025 End: 65-15-6827Awgdu panelLiver panel Lab Routine 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 History of gastric bypass Expected: 01/12/2025, Expires: 01/12/2026Wilson HealthComment on above:Expected: 01/12/2025, Expires: 01/12/2026Start: 01-12-2025 End: 73-06-9015Hpccprlpqod Hormone, intactParathyroid Hormone, intact Lab Routine 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 History of gastric bypass Expected: 01/12/2025, Expires: 01/12/2026Wilson HealthComment on above:Expected: 01/12/2025, Expires: 01/12/2026Start: 01-12-2025 End: 44-89-2500Sdlkkxi (Vitamin B1), WBThiamin (Vitamin B1), WB Lab Routine 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 History of gastric bypass Expected: 01/12/2025, Expires: 01/12/2026Wilson HealthComment on above:Expected: 01/12/2025, Expires: 01/12/2026Start: 01-12-2025 End: 46-06-3029Vxgcxny A (Retinol)Vitamin A (Retinol) Lab Routine 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 History of gastric bypass Expected: 01/12/2025, Expires: 01/12/2026Wilson HealthComment on above:Expected: 01/12/2025, Expires: 01/12/2026Start: 01-12-2025 End: 78-03-2201Juyqrbb D 25 hydroxyVitamin D 25 hydroxy Lab Routine 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 History of gastric bypass Expected: 01/12/2025, Expires: 01/12/2026[facility] Comment on above:Expected: 01/12/2025, Expires: 01/12/2026Start: 01-12-2025 End: 12-40-4862Rixq, SerumZinc, Serum Lab Routine 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 History of gastric bypass Expected: 01/12/2025, Expires: 01/12/2026Wilson HealthComment on above:Expected: 01/12/2025, Expires: 01/12/2026Start: 49-01-5662Ynfxrcv ScreeningTobacco ScreeningReg[facility] Hospital [facility] SystemStart: 83-08-5690Ftzui BMI ScreeningAdult BMI ScreeningYadkin Valley Community Hospitaltart: 87-32-2139Lntoluk ScreeningTobacco ScreeningYadkin Valley Community Hospitaltart: 11-26-2024 End: 07-99-4262Qnplkcd [Mass/volume] in Serum or PlasmaCalcium Lab Routine Malnutrition following gastrointestinal surgery History of gastric bypass Postsu rgical malabsorption Expected: 11/26/2024 (Approximate), Expires: 11/26/2024 [facility] Work Phone: Comment on above:Expected: 11/26/2024 (Approximate), Expires: 11/26/2024Start: 11-26-2024 End: 66-62-0096MKM W Auto Differential panel - BloodCBC auto differential Lab Routine Malnutrition following gastrointestinal surgery History of gastric bypass Postsurgical malabsorption Expected: 11/26/2024 (Approximate), Expires: 11/26/2024Wilson HealthComment on above:Expected: 11/26/2024 (Approximate), Expires: 11/26/2024Start: 11-26-2024 End: 57-87-6436Yngmkb, serumCopper, serum Lab Routine Malnutrition following gastrointestinal surgery History of gastric bypassPostsurgical malabsorption Expected: 11/26/2024 (Approximate), Expires: 11/26/2024[facility] Comment on above:Expected: 11/26/2024 (Approximate), Expires: 11/26/2024Start: 11-26-2024 End: 85-50-0857Rppjefhxnshyvn vitamin b-12Vitamin B12 Lab Routine Malnutrition following gastrointestinal surgery History of gastric bypass Postsurgical malabsorption Expected: 11/26/2024 (Approximate), Expires: 11/26/2024Wilson HealthComment on above:Expected: 11/26/2024 (Approximate), Expires: 11/26/2024Start: 11-26-2024 End: 66-30-5529NjjhedMacwfa Lab Routine Malnutrition following gastrointestinal surgery History of gastric bypass Postsurgical malabsorption Expected: 11/26/2024 (Approximate), Expires: 11/26/2024Wilson HealthComment on above:Expected: 11/26/2024 (Approximate), Expires: 11/26/2024Start: 11-26-2024 End: 94-24-0935Xece [Mass/volume] in Serum or PlasmaIron Lab Routine Malnutrition following gastrointestinal surgery History of gastric bypass Postsurgical malabsorption Expected: 11/26/2024 (Approximate), Expires: 11/26/2024Wilson HealthComment on above:Expected: 11/26/2024 (Approximate), Expires: 11/26/2024Start: 11-26-2024 End: 27-65-3995Iaxrh panelLiver panel Lab Routine Malnutrition following gastrointestinal surgery History of gastric bypass Postsurgical malabsorption Expected: 11/26/2024 (Approximate), Expires: 11/26/2024[facility] Comment on above:Expected: 11/26/2024 (Approximate), Expires: 11/26/2024Start: 11-26-2024 End: 27-20-7375Cwmnvrjidnz Hormone, intactParathyroid Hormone, intact Lab Routine Malnutrition following gastrointestinal surgery History of gastric bypass Postsurgical malabsorption Expected: 11/26/2024 (Approximate), Expires: 11/26/2024[facility] SystemComment on above:Expected: 11/26/2024 (Approximate), Expires: 11/26/2024Start: 11-26-2024 End: 16-05-1602Mnaaynh Vitamin B1, whole bloodThiamin Vitamin B1, whole blood Lab Routine Malnutrition following gastrointestinal surgery Historyof gastric bypass Postsurgical malabsorption Expected: 11/26/2024 (Approximate), Expires: 11/26/2024[facility] SystemComment on above:Expected: 11/26/2024 (Approximate), Expires: 11/26/2024Start: 11-26-2024 End: 24-56-7258Cbxsfer A (Retinol)Vitamin A (Retinol) Lab Routine Malnutrition following gastrointestinal surgery History of gastric bypass Postsurgical malabsorption Expected: 11/26/2024 (Approximate), Expires: 11/26/2024[facility] SystemComment on above:Expected: 11/26/2024 (Approximate), Expires: 11/26/2024Start: 11-26-2024 End: 68-35-9330Essxnmv D 25 hydroxyVitamin D 25 hydroxy Lab Routine Malnutrition following gastrointestinal surgery History of gastricbypass Postsurgical malabsorption Expected: 11/26/2024 (Approximate), Expires: 11/26/2024[facility] SystemComment on above:Expected: 11/26/2024 (Approximate), Expires: 11/26/2024Start: 11-26-2024 End: 00-80-0982UqnfFgpw Lab Routine Malnutrition following gastrointestinal surgery History of gastric bypass Postsurgical malabsorption Expected: 11/26/2024 (Approximate), Expires: 11/26/2024[facility] SystemComment on above:Expected: 11/26/2024 (Approximate), Expires: 11/26/2024Start: 11-26-2024 End: 20-92-7097Ilxslxt encounter procedureProMedica Physicians General Surgery-BariatricStart: 05-55-1571Dsubo BMI ScreeningAdult BMI Screening [facility] SystemStart: 42-61-0195Qxgtfbq ScreeningTobacco Screening [facility] Hospitaltart: 08-20-2024 End: 96-99-6539Hquaafu encounter qelcpbmsx11/19/2024 2:30 PM EST Office Visit [facility] [address] [facility] [phone] Esthela Wilson MD [address] [place] [phone] [facility] Reconstructive/Plastic SurgeryStart: 07-28-2024 End: 35-11-4135Xmpviqi encounter ewjbzbbzq11/26/2024 11:30 AM EST Procedure Visit [facility] [address] [place] [address] Kirby Heredia, DO [address] [place], [place] [id number] [facility] BCP OBStart: 07-22-2024 End: 11-98-9088Tyzjhqa encounter procedureNOMS BWM GENSComment on above:Rectal bleedingStart: 07-17-2024 End: 62-82-2007Kzjbrbj encounter aoldbjskm19/15/2024 7:30 AM EST Procedure Visit [facility] Kirby Heredia, DO [address] [place], [place] [id number] [facility] EXT DEPStart: 07-09-2024 End: 69-96-9472Ltumxid encounter /07/2024 9:30 AM EST Procedure Visit [facility] [address] [place] [address] Kirby Heredia, DO [address] [place], [place] [phone] [facility] BCP OBStart: 07-09-2024 End: 72-11-2279Wodeipsswzjp / ancillary services bhaeiazeru38/07/2024 9:30 AM EST Ancillary Procedure [facility] [address] [place] [address] [facility] BCP OBStart: 07-06-2024 End: 46-47-7403Kwdlyiu encounter wotgglaan50/04/2024 1:00 PM EST Office Visit [facility] [address] [place] [phone] Kirby Heredia, DO [address] [place] [address] ArrivedNOMS BCP OBComment on above:ArrivedStart: 06-25-2024 End: 18-57-2265Nwhvqbj encounter omjinaznw19/24/2024 6:00 AM EDT Procedure Visit [facility] Kirby Heredia, DO [address] [place] [address] [facility] EXT DEPStart: 06-22-2024 End: 32-75-0885Nrzlpyj encounter pmtuvyptl75/21/2024 3:30 PM EDT Office Visit [facility] [address] [place] [address] Kirby Heredia, DO [address] [place] [address] [facility] BCP OBStart: 06-18-2024 End: 51-93-5484Rrvxehuvofvn / ancillary services zmxcuxtrqh57/17/2024 9:00 AM EDT Ancillary Procedure [facility] [address] [place] [address] [facility] BCP OBStart: 06-11-2024 End: 23-40-7300Hbenitm encounter procedureProMedica Physicians Reconstructive/Plastic SurgeryStart: 05-28-2024 End: 58-84-5023Atkwmkw encounter procedureNOMS BCP OBStart: 05-14-2024 End: 18-98-0079jWHN in Blood by Coagulation assayAPTT Lab Routine Menorrhagia with regular cycle Expected: 05/14/2024 (Approximate), Expires: 05/14/2025[facility] HealthcareComment on above:Expected: 05/14/2024 (Approximate), Expires: 05/14/2025Start: 05-14-2024 End: 36-33-3643DWPWMFKK Lab Routine Menorrhagia with regular cycle Expected: 05/14/2024 (Approximate), Expires: 05/14/2025NOIL HealthcareComment on above: Expected: 05/14/2024 (Approximate), Expires: 05/14/2025Start: 05-14-2024 End: 79-47-0614CN for pregnancyUS PELVIS-TRANSVAG IF INDICATED Imaging Routine Menorrhagia with regular cycle Expected: 05/14/2024(Approximate), Expires: 05/14/2025NOIL HealthcareComment on above:Expected: 05/14/2024 (Approximate), Expires: 05/14/2025Start: 05-14-2024 End: 68-75-6797Mpffmte encounter exgoizfto32/12/2024 9:20 AM EDT Office Visit [facility] [address] [place] [phone] Kirby Heredia DO [address] [place] [address] ArrivedNOSHC [facility] OBComment on above:ArrivedStart: 14-43-5359Mhszl-19 Vaccine ( season)Covid-19 Vaccine ( season)[facility]: 91-66-1443Vzoza-19 Vaccine ( season) Covid-19 Vaccine ( season)[facility]art: 95-89-3144Gfumnxjof vaccinationAshtabula County Medical Centertart: 40-82-6486Reqcofrbjj ScreeningDepression ScreeningProMedica Health SystemStart: 11-28-2023 End: 27-80-6495Tokhows encounter sldvhkbgu10/28/2024 11:00 AM EDT Office Visit [facility] [address] [place] [address] [place] [address] Rivka Koenig, SPAR MACHINE OPERATOR HELPER-MUSIC LEADER [address] [place] [address] [facility] Start: 27-89-5027Cilgewnbt vaccinationAshtabula County Medical Centertart: 70-11-0762Kyhgc BMI Follow Up PlanAdult BMI Follow Up [facility]tart: 09-02-2022 DEPRESSION ASSESSMENTDEPRESSION ASSESSMENTAshtabula County Medical Centertart: 08-20-2022 End: 81-90-400109599640-rccshosxrfdvsy D3 [Mass/volume] in Serum or [facility] Work Phone: Comment on above:Expected: 08/20/2022, Expires: 10/20/2022Start: 08-20-2022 End: 44-87-2749TPO BY IFA WITH REFLEXKettering Memorial Hospital Work Phone: Comment on above:Expected: 08/20/2022, Expires: 10/20/2022Start: 08-20-2022 End: 38-47-5044Aoixoj citrullinated peptide IgG Ab [Units/volume] in Serum or [facility] Work Phone: Comment on above:Expected: 08/20/2022, Expires: 10/20/2022Start: 08-20-2022 End: 41-69-2121RET double strand Ab [Units/volume] in Serum by Immunoassay [facility] Work Phone: Comaknh on above:Expected: 08/20/2022, Expires: 10/20/2022Start: 08-20-2022 End: 09-29-0410Hdxgjdnsqgh sedimentation rateKettering Memorial Hospital Work Phone: Comjjnl on above:Expected: 08/20/2022, Expires: 10/20/2022Start: 08-20-2022 End: 09-93-1796Hnswfvsduk factor [Units/volume] in Serum or [facility] Work Phone: Commamt on above:Expected: 08/20/2022, Expires: 10/20/2022Start: 69-14-1643Sxvomibps vaccinationINFLUENZA (#1)[facility] Start: 35-65-5078UiwoyuebfParkview Health Ctr Work Phone: Start: 42-92-8667VmgrruqvnParkview Health Ctr Work Phone: Start: 00-56-6101GKRDRH, Provider: Ashu Benson, Status: Pen, Time: 7:30 AMEGDANS, Provider: Ashu Benson, Status: Pen, Time: 7:30 GBJI-Qdbsdde-IwalddHood Memorial Hospital Work Phone: start: 26-82-7736UKGIIGBFHP ASSESSMENTDEPRESSION ASSESSMENTAshtabula County Medical Centertart: 19-54-8034DFZPLOFVXD, Provider: Allyn Mcdaniels, Status: Pen, Time: 1:00 PMVIRFUVHOME, Provider: Allyn Mcdaniels, Status: Pen, Time: 1:00 CYSD-Jcnlfehebl-Itovb Work Phone: Start: 73-96-7329SNLQHRGFWI, Provider: Allyn Mcdaniels, Status: Pen, Time: 1:00 PMVIRFUVHOME, Provider: Allyn Mcdaniels, Status: Pen, Time: 1:00 UQSR-Lbdarji-[facility]urlucUniversity [facility] Center Work Phone: start: 59-11-5811PEW TESTINGHPV TESTINGAshtabula County Medical Centertart: 90-61-7048WUN TESTINGPAP TESTINGAshtabula County Medical Centertart: 02-07-2008 Screening for malignant neoplasm of cervixAshtabula County Medical Centertart: 2006 DTaP,Tdap and Td Vaccines (1 - Tdap)DTaP,Tdap and Td Vaccines (1 - Tdap) [employer] SystemStart: 99-43-3753Bitnqyvjj B Vaccine (1 of 3 - 19+ 3-dose series)Hepatitis B Vaccine (1 of 3 - 19+ 3-dose series)[facility]ertart: 87-11-8705Nigkb microalbumin profileClePremier Healthtart: 79-27-9330Ztekxrz ScreeningAnxiety ScreeningAshtabula County Medical Centertart: 47-25-9547Eddgjgticn Screening Depression ScreeningAshtabula County Medical Centertart: 74-11-6790PJNQNMCJE C SCREENING HEPATITIS C SCREENINGAshtabula County Medical Centertart: 36-07-0192Setljtjjo C screening Hepatitis C ScreeningAshtabula County Medical Centertart: 22-43-9046MDQ SCREENINGHIV SCREENING [facility]art: 14-74-9999UBE screeningHIV ScreeningKettering Health Behavioral Medical Center Start: 01-12-3464QANND-19 VACCINE (#1)COVID-19 VACCINE (#1)[facility] Start: 11-71-2432NRIXTWDYF B (1 of 3 - 3-dose series)HEPATITIS B (1 of 3 - 3- dose series)[facility] Cent[facility]art: 86-53-8977Oeahcbixs B Vaccine (1 of 3 - 3- dose series)Hepatitis B Vaccine (1 of 3 - 3-dose series)[facility] Medical CenterBiopsy endometriumBiopsy endometrium Procedures Routine Menorrhagia with regular cycle Ordered: 05/28/2024[facility] Work Phone: comment on above:Ordered: 05/28/2024BC W Auto Differential panel - BloodCBC and differential Lab Routine Menorrhagia with regular cycle Ordered: 05/14/2024[facility] HealthcareComment on above:Ordered: 05/14/2024ytology Cervical or vaginal smear or scraping studyPap Smear Pathology and Cytology Routine Well woman exam with routine gynecological exam Ordered: 07/06/2024[facility] Work Phone: comment on above:Ordered: 07/06/2024HEA-sulfateDHEA- sulfate Lab Routine Menorrhagia with regular cycle Ordered: 05/14/2024[facility] CenterComment [facility] above:Ordered: 05/14/2024 End: 70-58-3834PgvosaydvrvgrqdkvfwsedpoitUBK GI Routine Malnutrition following gastrointestinal surgery Change in bowel habits Pain of upperabdomen 1 Occurrences starting 01/27/2025 until 01/27/2026ProSum[facility] Health [facility] Campusca Health SystemComment on above:1 Occurrences starting 01/27/2025 until 01/27/2026EstradiolEstradiol Lab Routine Menorrhagia with regular cycle Ordered: 05/14/2024[facility] Comment on above:Ordered: 05/14/2024Follicle stimulating hormoneFollicle stimulating hormone Lab Routine Menorrhagia with regular cycle Ordered: 05/14/2024[facility] HealthcareComment on above:Ordered: 05/14/2024hCG, quantitative, pregnancyhCG, quantitative, Lab Routine Menorrhagia with regular cycle Ordered: 05/14/2024[facility] HealthcareComment on above:Ordered: 05/14/2024 Hemoglobin A1c/Hemoglobin.total in BloodHemoglobin A1c Lab Routine Menorrhagia with regular cycle Ordered: 05/14/2024[facility] HealthcareComment on above:Ordered: 05/14/2024Human papilloma virus DNA [Presence] in Unspecified specimen by Probe with amplificationHPV DNA probe, amplified Microbiology Routine Well woman exam with routine gynecological exam Ordered: 07/06/2024[facility] HealthcareComment on above:Ordered: 07/06/2024Luteinizing hormoneLuteinizing hormone Lab Routine Menorrhagia with regular cycle Ordered: 05/14/2024[facility] HealthcareComment on above:Ordered: 05/14/2024 End: 01-03-7893Xsw any jt upper extremity w/o contrast matrWVUMedicine Harrison Community Hospital Work Phone: Comment on above:1 Occurrences starting 08/20/2022 until 4Patient EducationParkview Health Ctr Work Phone: Patient referralParkview Health Ctr Work Phone: Prothrombin time (PT) in Blood by Coagulation assay Protime-INR Lab Routine Menorrhagia with regular cycle Ordered: 05/14/2024[facility] [employer] Work Phone: comment on above:Ordered: 05/14/2024 End: 82-27-9452Dtfgv spine cervical 4 or 5 viewsXR CERV OTHER 4V AP/LAT/OBL Radiology Routine Lateral epicondylitis of both elbows Left elbow pain Right elbow pain Fibromyalgia Anxiety Sleep apnea, unspecified type Cervicalgia 1 Occurrences starting 08/20/2022 until 4[facility] Work Phone: Comment on above:1 Occurrences starting 08/20/2022 until 4Radex spine cervical 4 or 5 viewsXR CERV OTHER 4V AP/LAT/OBL Radiology Routine Lateral epicondylitis of both elbows Left elbow pain Right elbow pain Fibromyalgia Anxiety Sleep apnea, unspecified type Cervicalgia 08/20/2022 10:54 AM [facility] Work Phone: Thyrotropin [Units/volume] in Serum or PlasmaTSH Lab Routine Menorrhagia with regular cycle Ordered: 05/14/2024[facility] HealthcareComment on above:Ordered: 05/14/2024Thyroxine (T4) free [Mass/volume] in Serum or PlasmaT4, free Lab Routine Menorrhagia with regular cycle Ordered: 05/14/2024 [facility] HealthcareComment on above:Ordered: 05/14/2024 End: 10-65-8073QSY with ReflexTSH with Reflex Lab Routine Polina's disease 1 Occurrences starting 08/29/2023 until 08/29/2024[facility] Work Phone: comment on above:1 Occurrences starting 08/29/2023 until 08/29/2024TSH with ReflexTSH with Reflex Lab Routine Polina's disease 08/29/2023 8:51 AM [facility] End: 77-79-0721Bi lmtd joint/oth nonvasc xtr strux r-t w/imgUS ELBOW LEFT Radiology Routine Lateral epicondylitis of both elbows 1 Occurrences starting 09/17/2022 until 10/17/2023[facility] Work Phone: Comment on above:1 Occurrences starting 09/17/2022 until 10/17/2023[facility] Payers DatePayer CategoryPayerPolicy [id number] Care HMO (unspecified)[id number] [id number] [id number] 2023Medicaid HMO [id number] Health Insurance [id number] [id number] 2.16840.1.585414.3.579.2.73197-35-4679Hxdstpy7469609 2.840.1.807059.3.579.2.23520-47-3532Wdzyaal805503527 2.840.1.594894.3.579.2.206665-09-7142Pthkcaa183111835 2.840.1.186654.3.579.2.108956-69-3170Ttvqtyp876027089 2.16840.1.196409.3.579.2.397892-80-5017Wjiqfln061579728 2.16840.1.241434.3.579.2.712272-13-9189Eqojlpl282585283 2.16840.1.985948.3.579.2.508603-22-2425Apxekcm955786750 2.16840.1.438713.3.579.2.249429-29-6337Strkutt188552336 2.16840.1.647772.3.579.2.347813-87-7168Zpmarxk464041471 2.16840.1.616046.3.579.2.226640-04-8112Ygpuidb872193977 2.16.840.1.724955.3.579.2.425386-77-0267Gkcwjob883099254 2.16.840.1.950871.3.579.2.592899-83-4379Jxfffqu547342929 2.16840.1.342320.3.579.2.428978-82-3541Kyqjlfq034215264 2.16840.1.652723.3.579.2.428070-23-1242Vrfveqz10958719 2.16840.1.478257.3.579.2.985408-32-5183Hehirln94959252 2.16840.1.875072.3.579.2.619139-43-5819Zomsufz6228719 2.840.1.078587.3.579.2.385676-81-2358Vlpgkhr5345929 2.16840.1.969821.3.579.2.606639-66-3677Hqclzvq7463109 2.840.1.414489.3.579.2.412241-20-6525Vmhlgox5546430 2.16840.1.539179.3.579.2.146222-38-1813Itjybqq7559018 2.840.1.017781.3.579.2.678202-50-6935Rgsheve10474562 2.16840.1.296239.3.579.2.94541-36-9489Cqmmyco74252400 2.16840.1.449127.3.579.2.24723-55-0313Ruwqkry42183267 2.16840.1.848194.3.579.2.87523-65-3180Cdmyyan36574294 2.16840.1.547182.3.579.2.27526-16-4630Cvbfwcj33424779 2.16.840.1.678881.3.579.2.23229-06-5591Dwfphlw901734401 2.16.840.1.713847.19 52-72-7359Offlsym425977659159 2.16.840.1.960967.81Dcnhzyn13700898 2.16.840.1.136421.3.579.2.372Gkuevcm33738193 2.16.840.1.550367.3.579.2.531 Gbcafjf57458038 2.16.840.1.685327.3.579.2.531 Social History DateTypeDetailFacilityStart: 12-04-2022 End: 78-70-0721Dlzqqtc every day smokerCurrent every day smokerProvidence Hospital Work Phone: Start: 12-04-2022 End: 83-52-6650Wwd [facility]igned At [facility] Campustart: 11-07-2021 End: 15-08-2409Ecbsfus smoking status NHISNever smoked tobacco (finding) [facility]art: 57-57-7875Lww Assigned At [facility]Female [facility] CantonTobacco smoking status NHISTobacco smoking consumption unknownLenox ClinicStart: 87-20-7831Tdl Assigned At BirthNot on fileLenox ClinicStart: 07-10-2022 End: 44-58-2626Vhokrigp to SARS-CoV-2 (event)Not sureAshtabula County Medical Centertart: 12-04-2022 End: 73-40-2679Vbohxpr smoking status NHISEx-smokerAshtabula County Medical Centertart: 10-31-2010 End: 18-60-4011Omvjhbe of tobacco useCurrent smokerAshtabula County Medical Centertart: 10-31-2010 End: 79-88-1249Oaskbrh of tobacco useCigarette SmokerAshtabula County Medical Centertart: 12-04-2022 End: 85-53-3793Qbkvhbl use and exposureSmokeless tobacco non-userAshtabula County Medical Centertart: 19-11-2717Becfpotk Score (1-100), lower number is lower risk86 [facility] Centertart: 94-32-2993Dsmwaj identityIdentifies as female gender (finding)[facility]art: 50-40-7158Uvztud orientationHeterosexual (finding)[facility] Centertart: 05-28-2024 End: 00-95-5396Qjhwdokpo beverage intakeEx-drinker (finding)[facility] Start: 79-53-3731Ysssctd CommentCaffeine: 1-2 cups/dayNOMS HealthcareStart: 40-99-8291UybYxuncbk sex unknown (finding)[facility] Start: 90-46-9234Tgtzkie smoking status NHISSmokes tobacco dailyNOMS Healthcare Start: 08-20-2024 End: 29-22-2575Vkpgxcuen beverage intakeCurrent non-drinker of alcohol (finding) [facility] SystemStart: 97-44-1717Bvneeta Comment2-3 cigarettes a day [facility] SystemStart: 42-38-4295KinVdpgpr (finding)[facility] SystemHistory of tobacco usePassive smokerProMedica Health System Goals DatePatient GoalDesired Activity/StatePersonal health goal Functional Status HftmOklzvbdjncQtfuxkKgbwynpk48-83-9792Kjhejzthgn StatusN/[facility]11-18-2024Functional StatusN/[facility]11-14-2024 Functional StatusN/AExecutive [facility]rology of [facility] Clinical Notes 01-31-2015 to 05-20-2025 Note Date & HiqfEawjWxkzpegs76-21-0898 Evaluation note* Diagnosis Onset Date Resolution Status Admit Date Arthritis of lumbosacral spine acuteSeptember 2024 9:33amChronic painacuteSeptember 2024 9:33am Right hip painnoneactiveSeptember 2024 9:33amSinusitis, acute, maxillary acuteOctober 2024 2:40pm [facility] Work Phone: 1(111) 784-761308-28-2025 History of Present illness Narrative* Opal Cardenas, HOME HOSPICE AIDE - 04/29/2025 8:40 AM EDT Reason for Appointment: Patient ID: Michelle Rivera is a 40 y.o. female who presents for Discuss HPV Patient presents today for Consult appointment. MEDICATIONS Current Outpatient Medications Medication Instructions Calcium-Cholecalciferol 200-6.25 MG-MCG tablet 2 tablets, 3 times daily cyanocobalamin (VITAMIN B-12) 1,000 mcg, Once Ferrous Sulfate (IRON PO) 1 tablet, Daily RT omeprazole (PriLOSEC) [address] capsule Every 12 hours ondansetron (Zofran) 4 MG tablet Take by mouth MV-Min-Fe Fum-FA-DHA ( 1 PO) Daily RT zinc gluconate 50 mg, Daily ALLERGIES Allergies [...] Xiomy Heart disease Paternal Grandfather Asthma Sister [place] SURGICAL HISTORY Past Surgical History: Procedure Laterality Date ABDOMINAL SURGERY 11/28/2022 ADENOIDECTOMY ENDOMETRIAL ABLATION 07/2024 GASTRIC BYPASS 2022 PAP SMEAR 11/26/2019 negative SALPINGECTOMY 07/2024 TONSILLECTOMY REVIEW OF SYSTEMS Review of Systems: Review of Systems Constitutional: Negative. HENT: Negative. Eyes: Negative. Respiratory: Negative. Cardiovascular: Negative. Gastrointestinal: Negative. Genitourinary: Negative. Musculoskeletal: Negative. Skin: Negative. Neurological: Negative. All other systems reviewed and are negative. Hematological: Negative. Endocrine: Negative. Allergic/Immunologic: Negative. OBJECTIVE Objective: Physical Exam Constitutional: Appearance: Normal appearance. She is well-developed. Cardiovascular: Rate and Rhythm: Normal rate and [...] nursing note reviewed. Exam conducted with a teenage babysitter present. Vitals: Estimated body mass index is 23.6 kg/m as calculated from the following: Height as of 07/22/24: 5' 5.5 . Weight as of this encounter: 144 lb. BP: 110/82 No LMP recorded. ASSESSMENT & PLAN ICD-10-CM 1. HPV exposure Z20.2 Patient presents to office today to discuss HPV. Patient voiced that her partner has stage 4 throatcancer and would like to discuss the HPV effect on her. Patient did not receive the Gardasil vaccine. Patient aware that she has already been exposed to the HPV strain that caused her partners throatcancer. Explained transmission of HPV and what patient would need to look out for. Advised patient that it is recommended that she continue routine testing with PAP smears as directed. Advised patient that she is able to get vaccine at health department or pharmacy and that it will help prevent other strains of HPV. Patient to return to clinic for routine annual appointment as directed. Discussed Metformin with patient and provider approved restarting medication. Metformin will be sent to [facility]. Documented by Opal Cardenas LPN on behalf of: Kirby Heredia DO documented in this encounterUniversity Health Lakewood Medical [id number] Telephone encounter Note* Telephone Encounter - Gayla Naylor MA - 03/26/2025 11:45 AM EDT Patient called and wanted to let Dr. Heredia know that her partner of 2 yrs has been diagnosed w/Stage 4 throat cancer due to HPV 16. And she is not due for an annual until 07/06/2025. Pt wants to knowwhat you recommend her do to get tested? She is concerned that if she has it too and does not get the adult HVP vaccine she could possible pass it back to him if she is + for HPV. Pt stated to let you know not to stress over her issue an to get to her whenever you can. However, she wanted to keep you in the loop of what is happening w/her partner. Pt did state she has done oral on her partner andis worried if she could also get it in her mouth/throat? [facility] [id number] Miscellaneous Notes* Telephone Encounter - Gayla Naylor MA - 03/26/2025 11:45 AM EDT Patient called and wanted to let Dr. Heredia know that her partner of 2 yrs has been diagnosed w/Stage 4 throat cancer due to HPV 16. And she is not due for an annual until 07/06/2025. Pt wants to knowwhat you recommend her do to get tested? She is concerned that if she has it too and does not get the adult HVP vaccine she could possible pass it back to him if she is + for HPV. Pt stated to let you know not to stress over her issue an to get to her whenever you can. However, she wanted to keep you in the loop of what is happening w/her partner. Pt did state she has done oral on her partner andis worried if she could also get it in her mouth/throat? documented in this encounterUniversity Health Lakewood Medical [id number] History of Present illness Narrative* Rivka Koenig, DYLAN-MUSIC LEADER - 02/19/2025 7:40 AM EDT Subjective Patient ID: Michelle Rivera is a 40 y.o. female. OBDULIO Martinez presents to the office to discuss ADHD. She reports she was diagnosed as a child by her set illustrator and also followed with Psychiatry for ADHD and was on different medications as a teenager. She reports she stopped all medications on her own. She reports she was prescribed antidepressants with a previous provider Dr. Cortes, but she also stopped these medications by herself, as she does not feel that she is depressed. However she presents to the office today as she needs some help with focus and concentration. She reports she is going to school in [place] and is driving there daily, she is a full-time student, she is working part-time, has children, and her was just diagnosed with cancer. She reports she is not able to stay focused with her school work. She is finding thatshe has to read and reread constantly. She reports she notices that she is easily distracted and isconstantly fidgeting. She reports she sits on a yoga ball at school as she is constantly moving. She reports she has trialed lrje-jzz-hoizqtc supplements and herbal medications but this has not been e ffective. She reports she also has tried bee venom therapy and is willing to continue this. She reports she has tried exercising as well but this does not help. She reports 2 of her children has beendiagnosed with ADHD and are on medications for this as well. She has hx of SAMIR, but admits she has not been wearing her mask as she tears it off. She also reports she is doing with constipation and is following with GI. She reports the Linzess was effective but no longer working. She is working on increasing fluid intake. She is following with cardiology as she is having lower chest or epigastric pain. She has appt 03/08. The following portions of the patient's history were reviewed and updated as appropriate: allergies, current medications, past family history, past medical history, past social history, past surgicalhistory, problem list, and medication reconciliation was completed including current medication andpost discharge medication. Review of Systems Constitutional: Negative for chills, diaphoresis, fatigue, fever and unexpected weight change. HENT: Negative. Eyes: Negative. Respiratory: Negative for cough, chest tightness, shortness of breath and wheezing. Cardiovascular: Positive for chest pain (Chest discomfort however this also maybe epigastric discomfort.). Negative for palpitations and leg swelling. Gastrointestinal: Positive for abdominal pain and constipation. Negative for diarrhea, nausea and vomiting. Endocrine: Negative for polydipsia, polyphagia and polyuria. Genitourinary: Negative for difficulty urinating, frequency, hematuria and urgency. Musculoskeletal: Negative for arthralgias, gait problem, joint swelling and neck pain. Skin: Negative. Neurological: Negative for dizziness, syncope, weakness, light-headedness, numbness and headaches. Psychiatric/Behavioral: Positive for decreased concentration. Negative for self- injury and suicidalideas. Objective Physical Exam Vitals and nursing note reviewed. Constitutional: General: She is not in acute distress. Appearance: Normal appearance. She is well-developed. She is not ill-appearing. HENT: Head: Normocephalic and atraumatic. Right Ear: Tympanic membrane and external ear normal. Left Ear: External ear normal. Eyes: Extraocular Movements: Extraocular movements intact. Pupils: Pupils are equal, round, and reactive to light. Neck: Vascular: No carotid bruit. Cardiovascular: Rate and Rhythm: Normal rate and regular rhythm. Pulses: Normal pulses. Heart sounds: Normal heart sounds. No murmur heard. Pulmonary: Effort: Pulmonary effort is normal. No respiratory distress. Breath sounds: Normal breath sounds. No wheezing, rhonchi or rales. Chest: Chest wall: No tenderness. Abdominal: Palpations: Abdomen is soft. Musculoskeletal: General: Normal range of motion. Cervical back: Normal range of motion and neck supple. No rigidity or tenderness. Right lower leg: No edema. Left lower leg: No edema. Lymphadenopathy: Cervical: No cervical adenopathy. Skin: General: Skin is warm and dry. Capillary Refill: Capillary refill takes less than 2 seconds. Findings: No rash. Neurological: General: No focal deficit present. Mental Status: She is alert and oriented to person, place, and time. Motor: No weakness. Psychiatric: Mood and Affect: Mood normal. Affect is tearful. Behavior: Behavior normal. Comments: She became tearful when discussing her 's condition. Assessment/Plan Adult ADHD form completed today and it looks like she may have ADHD. Discussed additional supplements and she is willing to try Ashwagandha uwii-wdq-goqjgez. We will also go ahead and get started on Strattera for ADHD. Discussed possible need to send referral to Psychiatry. Encouraged her to follow up with Gastroenterology for constipation. I recommend she wear her CPAP. Follow up in about 6 weeks to see how this medication is working for her or if we need to discuss alternatives or referral to Psychiatry. We spent over 40 minutes discussing symptoms in history. Michelle was seen today for adhd. Diagnoses and all orders for this visit: ADHD (attention deficit hyperactivity disorder), inattentive type - atomoxetine (STRATTERA) 40 mg capsule; Take 1 capsule (40 mg total) by mouth in the morning. DAVID Lerner 02/19/25 1021 documented in this encounterWilson Health06-06-2025 History of Present illness Narrative* Petey De Guzman RD - 02/05/2025 8:00 AM EDT Bariatric Medical Nutrition Therapy Nutritional Assessment/Education Session: Post-op Michelle Rivera is a 39 y.o. female who presents for medical nutritional therapy after weight loss surgery. She had a Gastric Bypass in October 2022: Preoperative weight: 256 lb BMI 42.6 1 wk post-op: 245 lb BMI 40.8 3 mo (PA/CONCRETE PUMP OPERATOR HELPER visit): 202 lb BMI 33.7 6 mo (PA/CONCRETE PUMP OPERATOR HELPER visit): 160 lb BMI 26.7 12 mo (MD visit): 144 lb BMI 24.2 24 mo (PA visit): 141 lb BMI 23.5 She now complains of constipation and vomiting. She has upper gastric pain multiple times during the day. She will be having and EGD next month to evaluate for an ulcer. She is meeting with GI regarding bowels. Diet Recall: Breakfast 8 am Snack Lunch Snack Dinner 6 pm Snack Applesauce pouch Or 1/2 banana Coffee with honey and splash of skim milk -- Gum And Cinnamon hard candy Chip chicken: chicken tenders smeared with melvin and topped with Doritos baked in the oven and peas Threw up in a few minutes Peas Then later: sugar free banana pudding with pumpkin and protein powder Frequency of eating out: Avoids fast food. Family gets pizza once a week but will get a pizza salad. Occasionally goes to [employer] to get egg bites and sugary coffee. 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 Had stopped her ADHD medication a while ago), Body [employer] water 1L/day, chews ice - craves it, iron levels are good. Physical Activity: walking fast 30 minutes daily + walking on 30 minute break at school + small weights occasionally Vitamins: vitamin, Zinc (due to past deficiency), Magnesium (to help with constipation), B12 injections and calcium 1-2x/day She is very busy with family and school commitments. She drives and hour to and from school. Nutrition Diagnosis: Michelle is a healthy weight following weight loss surgery as Body mass index is 23.06 kg/m . Complains of constipation and vomiting. Nutrition Intervention: Vomiting: Discussed vomiting may be occurring because she is skipping meals throughout the day then overeating or eating too fast when she finally does eat. Encouraged spreading calories throughout the day instead of consuming the majority of calories in the evening hours. Breakfast should be within 1-2 hours of waking up, then eat about every 3-4 hours after that. Encouraged meal/snack planning for school. Constipation:She has been having chronic constipation. Dietary tips to help constipation include: - Drink plenty of fluids. Set a goal of at least 8 cups (64 ounces) per day of caffeine free beverages. She will talk with her PCP regarding ADHD medications again instead of using caffeine to help focus. You may need even more fluids with higher amounts of fiber. Fluid helps your body process fiber without discomfort. - Adding Fiber to the diet. Slowly increase the amount of fiber that you eat. Over the span of a few days, you should increase fiber by no more than 5 grams (g) until you reach a goal of 25 to 35 grams per day. - Spread calcium and vitamin (containing iron) throughout the day. Take smaller amounts several times a day to help decrease constipation. -Pre/pro-biotic. She has tried pre and pro-biotics in the past and this has not helped her symptoms. -Fiber supplementation. She has tried Metamucil without good results as it gelled. Discussed Benefiber is a non-gelling fiber supplement. Nutrition Monitoring: To monitor symptoms to show progress. Start time: 804 End time: 914 documented in this encounterGreen Cross Hospitalstuddex06-06-2025 Instructions* Patient Instructions* Petey De Guzman RD - 02/05/2025 8:00 AM EDT Read the [facility] Guide. If you re looking for general health and wellness resources, please visit [email or web address]. documented in this encounterGreen Cross Hospitalstuddex05-28-2025 Miscellaneous Notes* Telephone Encounter - Raquel Espinal - 01/27/2025 10:25 AM EDT ----- Message from Rob Lombardo DO sent at 01/27/2025 10:03 AM EDT ----- 1. Chronic Constipation and Abdominal Pain: Plan for xray today to establish baseline. Plan for bowel purge and increase miralax to 2 capfuls daily. Start lactulose as prescribed. Call office in 10 days with update. If symptoms not improving, will give samples of linsess (290mcg daily x 2 weeks) and plan for CLN. Mix 64oz of Gatorade with total of 14 capfuls/packets of Miralax and drink it all over a 12hour period. Then 2 capful or packet of Miralax daily. Take enema before miralax and get 2 dulcolax tablets 30 minutes before starting purge. 2. Epigastric pain: Continue protonix. Plan for EGD with MAC at [facility]/U in 3 months * Telephone Encounter - Aliza Whyte - 01/27/2025 10:25 AM EDT Requested a letter to provide proof of appt for school today. Uploaded to [employer]. * Telephone Encounter - Gricel Reynoso CNA - 01/27/2025 10:25 AM EDT 01/28/25 called pt and scheduled her EGD on 03/25/25 @ 1:30. Mailed out EGD instructions today BR * Telephone Encounter - Gricel Reynoso CNA - 01/27/2025 10:25 AM EDT 01/28/25 Pt would like a note to excuse her from School for 01/28/25 due to the bowel prep she was taking per SH. br * Telephone Encounter - Deirdre Baker CMA - 01/27/2025 10:25 AM EDT Patient reported constipation not improving and picked up samples at [facility] location 02/05/2025. Patient also inquired about doctor's note for dates 01/28/2025 and 01/29/2025. MA informed Kathy Werner RN about patient's request. Medication: Linzess Dosage:290mcg Quantity: 16 capsules Lot #: [id number] Exp: 01/2025 Pharmaceutical Co.: [employer] * Telephone Encounter - Kathy Werner RN - 01/27/2025 10:25 AM EDT Patient arrived @ [facility] asking for Linzess samples and letter to be excused from school 01/28 and 01/29 d/t symptoms post EGD. Communicated with patient through BENITA Gilmore. [facility] documented in this encounterWilson Health05-28-2025 Telephone encounter Note* Telephone Encounter - Raquel Espinal - 01/27/2025 10:25 AM EDT ----- Message from Rob Lombardo DO sent at 01/27/2025 10:03 AM EDT ----- 1. Chronic Constipation and Abdominal Pain: Plan for xray today to establish baseline. Plan for bowel purge and increase miralax to 2 capfuls daily. Start lactulose as prescribed. Call office in 10 days with update. If symptoms not improving, will give samples of linsess (290mcg daily x 2 weeks) and plan for CLN. Mix 64oz of Gatorade with total of 14 capfuls/packets of Miralax and drink it all over a 12hour period. Then 2 capful or packet of Miralax daily. Take enema before miralax and get 2 dulcolax tablets 30 minutes before starting purge. 2. Epigastric pain: Continue protonix. Plan for EGD with MAC at [facility] F/U in 3 months [facility]05-28-2025 Telephone encounter Note* Telephone Encounter - Aliza Whyte - 01/27/2025 10:25 AM EDT Requested a letter to provide proof of appt for school today. Uploaded to [employer]. [facility]05-28-2025 Telephone encounter Note* Telephone Encounter - Gricel Reynoso CNA - 01/27/2025 10:25 AM EDT 01/28/25 called pt and scheduled her EGD on 03/25/25 @ 1:30. Mailed out EGD instructions today BR [facility]05-28-2025 Telephone encounter Note* Telephone Encounter - Gricel Reynoso CNA - 01/27/2025 10:25 AM EDT 01/28/25 Pt would like a note to excuse her from School for 01/28/25 due to the bowel prep she was taking per SH. br [facility]05-28-2025 Telephone encounter Note* Telephone Encounter - Deirdre Baker CMA - 01/27/2025 10:25 AM EDT Patient reported constipation not improving and picked up samples at [facility] 02/05/2025. Patient also inquired about doctor's note for dates 01/28/2025 and 01/29/2025. MA informed Kathy Werner RN about patient's request. Medication: Linzess Dosage:290mcg Quantity: 16 capsules Lot #: [id number] Exp: 01/2025 Pharmaceutical Co.: [employer] [facility]05-28-2025 Telephone encounter Note* Telephone Encounter - Kathy Werner RN - 01/27/2025 10:25 AM EDT Patient arrived @ [facility] asking for Linzess samples and letter to be excused from school 01/28 and 01/29 d/t symptoms post EGD. Communicated with patient through BENITA Gilmore. [facility]05-28-2025 History of Present illness Narrative* Rob Lombardo DO - 01/27/2025 8:45 AM EDT [facility] New Patient Visit - History & Physical HISTORY OF PRESENT ILLNESS: Here for initial consultation. Michelle Rivera is a 39 y.o. female who has a past medical history of Anxiety, Asthma, DDD (degenerative disc disease), lumbar, Depression, THOMPSON (dyspnea on exertion), Eczema, Fibromyalgia, primary, GERD(gastroesophageal reflux disease), Goiter, Polina's disease, Herpes, History of gestational diabetes, History of pre-eclampsia, History of varicella, HL (hearing loss), Injury of back, Intractablemigraine without aura and without status migrainosus, Obesity, Obesity, Class I, BMI 30-34.9 (02/28/2023), Other sleep apnea (02/15/2022), Periodic limb movement disorder, Tendonitis, and Visual impairment. who presents today for evaluation of chronic constipation and chronic abdominal pain which worsened after tubal ablation in July 2024. She states that she has a longstanding history of mild constipation but she was generally well controlled with stool softeners. She underwent gastric bypass surgery in October 2022, losing 120 lb. She states that she had no significant issues after the surgery, but after her tubal ablation, she developed severe constipation, abdominal bloating and distention. She developed severe bruising after the surgery on the abdominal wall. She went to the ER andwas found at that time to have a bowel obstruction and suture dehiscence. She was treated with soapsuds enemas and put on colace, miralax as well as intermittent milk of magnesia but still needs enemas in order have a bowel movement. If she doesn't do the enema, she will need to manually disimpactherself and will have very large BSS 2 stool which is very painful. She has also increase gas and pain. She reports no significant change with her diet and has not been losing any weight. She has actually started to gain weight intermittently but then it will come back to normal after she has a bowel movement. No diarrhea at this time. She does complain of significant epigastric discomfort and pressure. Denies any NSAID use and does not smoke. Chief Complaint Patient presents with Constipation Chronic severe constipation, unable to have bowel movements without enemas, has large stools that cause rectal bleeding, would like to discuss meds in detail, severe epigastric pain and RUQ abd pain;pain radiates to chest, left arm, and back, gas build up, unable to belch or pass gas typically, gastric bypass surgery in 2022, uterine tubal removal an ablation, frequent vomiting most meals Rectal Bleeding Abdominal Pain Gas Bloated Vomiting . PREVIOUS ENDOSCOPIC PROCEDURES: The following portions of the patient's history were reviewed and updated as appropriate: Patient Care Team: Rivka Koenig APRN-CA as PCP - General (Nurse Practitioner) Unique Sierra DO as Referring Physician (Neurology) Dave Tam MD as Referring Physician (Endocrinology, Diabetes & Metabolism) Ed Malhotra MD as Referring Physician (Pain Medicine) She has a past medical history of Anxiety, Asthma, DDD (degenerative disc disease), lumbar, Depression, THOMPSON (dyspnea on exertion), Eczema, Fibromyalgia, primary, GERD (gastroesophageal reflux disease), Goiter, Polina's disease, Herpes, History of gestational diabetes, History of pre-eclampsia, History of varicella, HL (hearing loss), Injury of back, Intractable migraine without aura and without status migrainosus, Obesity, Obesity, Class I, BMI 30-34.9 (02/28/2023), Other sleep apnea (02/15/2022), Periodic limb movement disorder, Tendonitis, and Visual impairment. She has a past surgical history that includes Tonsillectomy; Radiofrequency ablation nerves; Gastric bypass (N/A, 11/28/2022); Endometrial ablation (07/17/2024); and Salpingectomy (07/17/2024). Her family history includes Alzheimer's disease in her paternal grandmother; Aneurysm in her paternal grandmother; Arthritis in her brother, father, and mother; Cancer in her mother; Dementia in her maternal grandmother; Diabetes in her father, maternal grandmother, paternal grandmother, and sister; Drug abuse in her sister; Heart disease in her maternal grandfather, maternal grandmother, and paternal grandfather; Heart failure in her maternal grandmother; Hyperlipidemia in her brother, father,maternal grandmother, and paternal grandmother; Hypertension in her brother, father, maternal grandmother, and mother; Lung disease in her maternal grandmother; Melanoma in her father; Skin cancer inher father; Stroke in her paternal grandmother. She reports that she quit smoking about 4 years ago. Her smoking use included cigarettes. She started smoking about 14 years ago. She has a 2.5 pack-year smoking history. She has been exposed to tobacco smoke. She has never used smokeless tobacco. She reports that she does not currently use drugs after having used the following drugs: Marijuana. She reports that she does not drink alcohol. Past Surgical History Past Surgical History: Procedure Laterality Date [facility] BYPASS [facility]STR[facility] JANELLE EN Y N/A 11/28/2022 Performed by Nichol Barrett MD at [facility] 07/17/2024 with Bilateral Salpingectomy RADIOFREQUENCY ABLATION NERVES Dr. Malhotra SALPINGECTOMY 07/17/2024 with Endometrial Ablation TONSILLECTOMY age 15 Current Medications: Current Outpatient Medications: bisacodyL (DULCOLAX) 10 mg suppository, Insert 1 suppository (10 mg total) into the rectum in the morning., Disp: , Rfl: calcium citrate-vitamin D3 (CITRACAL PETITES) 200 mg calcium -250 units tablet, Take 2 tablets by mouth 3 (three) times a day for 360 days., Disp: 540 tablet, Rfl: 3 clindamycin-benzoyl peroxide (BENZACLIN) gel, Apply 1 Application topically daily as needed (acne)., Disp: 25 g, Rfl: 1 cyanocobalamin (VITAMIN B-12) 1,000 mcg/mL injection, Inject 1 mL (1,000 mcg total) into the appropriate muscle every 30 (thirty) days., Disp: 3 mL, Rfl: 1 docusate sodium (COLACE) 100 mg capsule, Take 1 capsule (100 mg total) by mouth 2 (two) times a dayas needed for constipation., Disp: 10 capsule, Rfl: 0 docusate sodium (COLACE) 100 mg capsule, Take 1 capsule (100 mg total) by mouth in the morning and 1 capsule (100 mg total) before bedtime. Do all this for 90 days., Disp: 60 capsule, Rfl: 2 lactulose (CHRONULAC) 10 gram/15 mL solution, Take 15 mL (10 g total) by mouth in the morning and 15 mL (10 g total) before bedtime., Disp: 473 mL, Rfl: 1 omeprazole (PriLOSEC) 40 mg capsule, Take 1 capsule (40 mg total) by mouth every morning before breakfast., Disp: , Rfl: PNV,calcium 83-kvwd-rumro acid ( VITAMIN PLUS LOW IRON) 27 mg iron- 1 mg tablet, Take 1 tablet by mouth in the morning for 360 days., Disp: 90 tablet, Rfl: 1 polyethylene glycol (GLYCOLAX) 17 gram/dose powder, Take 17 g by mouth in the morning for 90 days.,Disp: 1530 g, Rfl: 0 syringe with needle (BD LUER-HUMBERTO SYRINGE) 3 mL 25 x 1 1/2 syringe, Inject 1 SYRG into the appropriate muscle every 30 (thirty) days., Disp: 3 each, Rfl: 3 tiZANidine (ZANAFLEX) 4 mg tablet, , Disp: , Rfl: zinc gluconate 50 mg tablet, Take 1 tablet (50 mg total) by mouth in the morning., Disp: 90 tablet,Rfl: 3 I reviewed and reconciled this patient's medication list today. The list included in this note is the most up to date list that I can attest to at this time based on the information that the patient has provided me and the electronic medical record. ALLERGIES: Penicillin g, Sulfa (sulfonamide antibiotics), and Nsaids (non-steroidal anti- inflammatory drug) SOCIAL HISTORY: Social History Tobacco Use Smoking status: Former Current packs/day: 0.00 Average packs/day: 0.3 packs/day for 10.0 years (2.5 ttl pk-yrs) Types: Cigarettes Start date: 10/31/2010 Quit date: 10/31/2020 Years since quittin.2 Passive exposure: Past Smokeless tobacco: Never Tobacco comments: 2-3 cigarettes a day Vaping Use Vaping status: Never Used Substance Use Topics Alcohol use: No Drug use: Not Currently Types: Marijuana Comment: 5 to 10 mg editable as needed for pain FAMILY HISTORY: Family History Problem Relation Age of Onset Cancer Mother Arthritis Mother Hypertension Mother Arthritis Father Diabetes Father Hypertension Father Hyperlipidemia Father Melanoma Father Skin cancer Father Drug abuse Sister Diabetes Sister Arthritis Brother [...] disease Paternal Grandfather Anesthesia problems Neg Hx Colon cancer Neg Hx ASSESSMENTS: REVIEW OF SYSTEMS: See HPI, otherwise ROS as below CONSTITUTIONAL: negative HEENT: negative RESPIRATORY: negative CARDIOVASCULAR: negative GASTROINTESTINAL: As in HPI GENITOURINARY: negative INTEGUMENT/BREAST: negative HEMATOLOGIC/LYMPHATIC: negative ALLERGIC/IMMUNOLOGIC: negative ENDOCRINE: negative MUSCULOSKELETAL: negative NEUROLOGICAL: negative BEHAVIOR/PSYCH: negative PHYSICAL EXAM: Vitals: 01/27/25 0853 BP: 122/84 Weight: 66.4 kg (146 lb 6.4 oz) Height: 165.1 cm (5' 5 ) Body mass index is 24.36 kg/m . CONSTITUTIONAL: awake, alert and no apparent distress EYES: pupils equal, round and reactive to light; conjunctiva pink and normal appearing ENT: oral pharynx with moist mucus membranes HEMATOLOGIC/LYMPHATICS: no cervical lymphadenopathy and no supraclavicular lymphadenopathy LUNGS: No increased work of breathing, good air exchange, clear to auscultation bilaterally, no crackles or wheezing CARDIOVASCULAR: regular rate and rhythm, normal S1 and S2, no murmur noted and no edema ABDOMEN: normal bowel sounds, soft, non-distended and mildly tender diffusely SKIN: minor abdominal bruising NEURO: no focal deficits, moves all 4 extremities spontaneously, ambulates from chair to the exam table without difficulty RADIOLOGICAL DATA: No images are attached to the encounter. No results found. DATA: CBC: Lab Results Component Value Date WBC 4.8 01/13/2025 HGB 12.0 01/13/2025 HCT 36.0 01/13/2025 MCV 88 01/13/2025 RDW 14.4 01/13/2025 RDW 13.9 11/25/2023 PLT 333 01/13/2025 CMP: Lab Results Component Value Date K 4.1 11/21/2022 CL 105 11/21/2022 CO2 27 11/21/2022 BUN 13 11/21/2022 GLU 81 11/21/2022 ASSESSMENT AND PLAN: Michelle Rivera is a 39 y.o. female who presents today for evaluation of chronic constipation and chronic abdominal pain which worsened after tubal ablation in July 2024. She states that she has a longstanding history of mild constipation but she was generally well controlled with stool softeners.She underwent gastric bypass surgery in October 2022, losing 120 lb. She states that she had no significant issues after the surgery, but after her tubal ablation, she developed severe constipation, abdominal bloating and distention. She developed severe bruising after the surgery on the abdominal wall. She went to the ER and was found at that time to have a bowel obstruction and suture dehiscence.She was treated with soap suds enemas and put on colace, miralax as well as intermittent milk of magnesia but still needs enemas in order have a bowel movement. If she doesn't do the enema, she will need to manually disimpact herself and will have very large BSS 2 stool which is very painful. She has also increase gas and pain. She reports no significant change with her diet and has not been losing any weight. She has actually started to gain weight intermittently but then it will come back to normal after she has a bowel movement. No diarrhea at this time. She does complain of significant epigastric discomfort and pressure. Denies any NSAID use and does not smoke. 1. Chronic Constipation and Abdominal Pain: Plan for xray today to establish baseline. Plan for bowel purge and increase miralax to 2 capfuls daily. Start lactulose as prescribed. Call office in 10 days with update. If symptoms not improving, will give samples of linsess (290mcg daily x 2 weeks) and plan for CLN. Mix 64oz of Gatorade with total of 14 capfuls/packets of Miralax and drink it all over a 12hour period. Then 2 capful or packet of Miralax daily. Take enema before miralax and get 2 dulcolax tablets 30 minutes before starting purge. 2. Epigastric pain: Continue protonix. Plan for EGD with MAC at [facility] F/U in 3 months Thank you for allowing me to participate in this pleasant patient s care. This note was created with the assistance of a speech-recognition program. While intending to generate a timely document that accurately reflects the content of the visit, no guarantee can be provided that every grammatical or spelling mistake has been or will be identified or corrected. Thank you for your understanding. Rob Lombardo D.O. [facility] [place] [address] PH: [phone] documented in this encounterGreen Cross HospitalStudio Systems [facility] [id number] Instructions* Patient Instructions* Rob Lombardo DO - 01/27/2025 8:45 AM EDT 1. Chronic Constipation and Abdominal Pain: Plan for xray today to establish baseline. Plan for bowel purge and increase miralax to 2 capfuls daily. Start lactulose as prescribed. Call office in 10 days with update. If symptoms not improving, will give samples of linsess (290mcg daily x 2 weeks) and plan for CLN. Mix 64oz of Gatorade with total of 14 capfuls/packets of Miralax and drink it all over a 12hour period. Then 2 capful or packet of Miralax daily. Take enema before miralax and get 2 dulcolax tablets 30 minutes before starting purge. 2. Epigastric pain: Continue protonix. Plan for EGD with MAC at [facility] F/U in 3 months documented in this encounterWilson Health05-16-2025 History of Present illness Narrative* LENNOX Quiroz - 01/15/2025 9:15 AM EDTSummary: 2 yr f/u. RRYGB. 11/28/22. Dr. Barrett. Images from the original note were not included. [facility] [address] [place] [id number] Subjective Patient ID: Michelle Rivera is a 39 y.o. female who is an established patient. HPI: Michelle Rivera had a Robotic Janelle-en-Y Gastric Bypass performed by Dr. Barrett at [facility] on November 28, 2022. Returns today for 2 yr postop visit. Doing very well w/ weight loss, maintenance. Says she was downto 125 lb last summer, but now weight back into the 140 s. Actually down 4 lbs since her f/u w/ last year. Chief complaint is constipation, same as last year. Dr. Barrett had encouraged daily MOM. The patient has tried tried also short courses of Colace, Miralax, all w/o much consistentrelief and she has not continue the therapies consistently. Reports 1-2 BM qd pre-RYGB, now about week having very large bowel movements with occasional BRBPR. Some associated RUQ and epigastric pain as well. Says she has been vomiting on and off with meat and chicken since surgery. Tolerates seafood w/o problems. Has seen Dr. Johnathan Najera at [facility] following July 2024, tubal ligation and endometrial ablation, after which she developed worsening of her constipation. He felt her rectal bleeding may be due to internal hemorrhoids. Recommended MOM qd, high fiber diet, COS if sxs continued. Well water qd. 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 Has 6 kids, age 6, 7, 8, 16, 18, 24. Sleep: 6 hrs / 24 hrs. + snoring or wake up with apnea. Exercise: 7 days / wk. 2 mi / day walking. 2 times / wk resistance training. Meals: 4 meals per day. Fluids: > 64 oz water qd (goal). No soda. Herbalife powder. Chews a lot of ice. ETOH: Denies. Tobacco/Nicotine: Denies. Avoid lifelong (ulcerogenic) NSAIDS: Denies. Avoid lifelong (ulcerogenic) Recommended Lifelong supplements: (Compliance: Good ) Multivitamin with iron daily for life recommended. Should contain at minimum, the recommended dailyallowance (ASSOCIATE PROFESSOR) amounts for vitamin K, biotin, zinc, thiamine, vitamin B12, folic acid, iron and copper. Males and patients without history of anemia need at least 18 mg elemental iron daily from their multivitamin. Menstruating females and those who have had gastric bypass, sleeve gastrectomy or biliopancreatic diversion / duodenal switch should take at least 45-60 mg of elemental iron daily. Vitamin B12 daily or monthly for life recommended. Oral dose 350 mcg to 1000 mcg by mouth daily. Intramuscular shot dose 1000 mcg monthly. Calcium daily for life recommended. After gastric bypass or gastric sleeve, 1200 to 1500 mg daily. After biliopancreatic diversion / duodenal switch, 1800 to 2400 mg daily. To improve absorption, calcium should be taken in divided doses, with meals for calcium carbonate (Tums), with or without meals for calcium citrate (Citracal). Vitamin D3 daily for life recommended, 3000 IU / 75 mcg daily from all sources (food + supplements)to maintain vitamin D level greater than 30. Rx vitamin with iron PO daily. Rx vitamin B12 1000 mcg IM injection q.month (self administered) Rx calcium citrate with vitamin-D 3 200-250 mg-units per tab taken t.i.d. Rx Zinc 50 mg qd Beef organs 3 months back 1 tablet BID Weight and comorbid condition status: 1. Morbid obesity. Resolved Height: 5' 5 165.1 cm Erving body weight: 150 lb BMI 25.0 Personal goal: 135 lb healthy, able to play with my children 03/22/22: [address] Barrett consult Preoperative weight: 256 lb BMI 42.6 1 wk post-op: 245 lb BMI 40.8 3 mo (PA/CONCRETE PUMP OPERATOR HELPER visit): 202 lb BMI 33.7 6 mo (PA/CONCRETE PUMP OPERATOR HELPER visit): 160 lb BMI 26.7 12 mo (MD visit): 144 lb BMI 24.2 24 mo (PA visit): 141 lb BMI 23.5 2. Hypertension. In remission Postop: No medications 01/15/2025: BP 130/84 Preop: Atenolol 25 mg p.o. daily 03/02/2022: BP 126/84 3. Reflux. No current symptoms except the last 2 days. Postop: Rare PPI use Preop: Prilosec 20 mg p.o. b.i.d. 4. Insulin resistance Likely resolved Postop: No medications Preop: Ozempic 0.25 mg subQ weekly. Metformin also. 5. Sleep apnea. Sleeping improved overall since surgery. Postop: Has not been using since six-month postop when she developed intolerance, she things to pressure being too high. Has not been back to see pulmonary Due to insurance change. Preop: CPAP nightly 6. Back pain. Better Postop: Bilateral back ablation every 6 mo and for fibromyalgia, has been working postop. Preop: Ablations did not work. Naprosyn 275 mg p.o. b.i.d.. Cyclobenzaprine 10 mg p.o. t.i.d.. The following portions of the patient's history were reviewed and updated as appropriate: allergies, current medications, past family history, past medical history, past social history, past surgicalhistory, problem list, and medication reconciliation was completed including current medication andpost discharge medication. Past Medical History: Diagnosis Date Anxiety Asthma as a child DDD (degenerative disc disease), lumbar osteo Depression THOMPSON (dyspnea on exertion) No CP Eczema Fibromyalgia, primary GERD (gastroesophageal reflux disease) Goiter Polina's disease Herpes History of gestational diabetes History of pre-eclampsia History of varicella HL (hearing loss) left ear Injury of back herniated disc lumbar Intractable migraine without aura and without status migrainosus Obesity Obesity, Class I, BMI 30-34.9 02/28/2023 Other sleep apnea 02/15/2022 CPAP Periodic limb movement disorder Tendonitis Visual impairment wears glasses Past Surgical History: Procedure Laterality Date DAVINCI BYPASS GASTRIC JANELLE EN Y N/A 11/28/2022 Performed by Nichol Barrett MD at [facility] ENDOMETRIAL ABLATION 07/17/2024 with Bilateral Salpingectomy RADIOFREQUENCY ABLATION NERVES Dr. Malhotra SALPINGECTOMY 07/17/2024 with Endometrial Ablation TONSILLECTOMY age 15 Allergies: Penicillin g, Sulfa (sulfonamide antibiotics), and Nsaids (non-steroidal anti- inflammatory drug) Family History Problem Relation Age of Onset Cancer Mother Arthritis Mother Hypertension Mother Arthritis Father Diabetes Father Hypertension Father Hyperlipidemia Father Melanoma Father Skin cancer Father Drug abuse Sister Diabetes Sister Arthritis Brother [...] disease Paternal Grandfather Anesthesia problems Neg Hx Social History Socioeconomic History Marital status: Tobacco Use Smoking status: Former Current packs/day: 0.00 Average packs/day: 0.3 packs/day for 10.0 years (2.5 ttl pk-yrs) Types: Cigarettes Start date: 10/31/2010 Quit date: 10/31/2020 Years since quittin.2 Smokeless tobacco: Never Tobacco comments: 2-3 cigarettes a day Vaping Use Vaping status: Never Used Substance and Sexual Activity Alcohol use: No Drug use: Yes Types: Marijuana Comment: 5 to 10 mg editable as needed for pain Sexual activity: Defer Partners: Male Social Drivers of Health Food Insecurity: No Food Insecurity (08/29/2023) Hunger Screening Food Insecurity - Worry: Never True Food Insecurity - Inability: Never True Medications: Current Outpatient Medications: bisacodyL (DULCOLAX) 10 mg suppository, Insert 1 suppository (10 mg total) into the rectum in the morning., Disp: , Rfl: calcium citrate-vitamin D3 (CITRACAL PETITES) 200 mg calcium -250 units tablet, Take 2 tablets by mouth 3 (three) times a day for 360 days., Disp: 540 tablet, Rfl: 3 clindamycin-benzoyl peroxide (BENZACLIN) gel, Apply 1 Application topically daily as needed (acne)., Disp: 25 g, Rfl: 1 cyanocobalamin (VITAMIN B-12) 1,000 mcg/mL injection, Inject 1 mL (1,000 mcg total) into the appropriate muscle every 30 (thirty) days., Disp: 3 mL, Rfl: 1 docusate sodium (COLACE) 100 mg capsule, Take 1 capsule (100 mg total) by mouth 2 (two) times a dayas needed for constipation., Disp: 10 capsule, Rfl: 0 docusate sodium (COLACE) 100 mg capsule, Take 1 capsule (100 mg total) by mouth in the morning and 1 capsule (100 mg total) before bedtime. Do all this for 90 days., Disp: 60 capsule, Rfl: 2 omeprazole (PriLOSEC) 40 mg capsule, Take 1 capsule (40 mg total) by mouth every morning before breakfast., Disp: , Rfl: PNV,calcium 19-qzbe-tyydf acid ( VITAMIN PLUS LOW IRON) 27 mg iron- 1 mg tablet, Take 1 tablet by mouth in the morning for 360 days., Disp: 90 tablet, Rfl: 1 polyethylene glycol (GLYCOLAX) 17 gram/dose powder, Take 17 g by mouth in the morning for 90 days.,Disp: 1530 g, Rfl: 0 syringe with needle (BD LUER-HUMBERTO SYRINGE) 3 mL 25 x 1 1/2 syringe, Inject 1 SYRG into the appropriate muscle every 30 (thirty) days., Disp: 3 each, Rfl: 3 tiZANidine (ZANAFLEX) 4 mg tablet, , Disp: , Rfl: zinc gluconate 50 mg tablet, Take 1 tablet (50 mg total) by mouth in the morning., Disp: 90 tablet,Rfl: 3 ROS: Review of Systems Constitutional: 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 comfortable 125 lb.). HENT: Negative for trouble swallowing. Respiratory: Negative for shortness of breath. Cardiovascular: Positive for palpitations. Negative for chest pain. Gastrointestinal: Positive for abdominal pain (epigastric and right upper quadrant occasionally, taking no medication.), constipation (Colace, MOM, Miralax. Using suppositories and enema not working.Seeing Dr. Najera in [facility].) and vomiting (August 25, vomiting several times / day. Especially chicken and meat. Seafood ok.). Routinely no heartburn. Last 2 days developed heartburn, took omeprazole that she had the house in it worked. Endocrine: Negative. Genitourinary: Positive for difficulty urinating and vaginal bleeding (10-12 days / mo since ablation, heavy , then spotting. Usually 2 menstrual has mentioned maybe hysterectomy. f/u in February 24). Negative for hematuria. Followed by Urology. 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 Musculoskeletal: Negative for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 file Years of education: Not on file Highest education level: Not on file Occupational History Not on file Tobacco Use Smoking status: Former Current packs/day: 0.00 Average packs/day: 0.3 packs/day for 10.0 years (2.5 ttl pk-yrs) Types: Cigarettes Start date: 10/31/2010 Quit date: 10/31/2020 Years since quittin.8 Smokeless tobacco: Never Tobacco comments: 2-3 cigarettes a day Vaping Use Vaping status: Never Used Substance and Sexual Activity Alcohol use: No Drug use: Yes Types: Marijuana Comment: 5 to 10 mg editable as needed for pain Sexual activity: Defer Partners: Male Other Topics Concern Not on file Social History Narrative Not on file Social Drivers of Health Financial Resource Strain: Not on file Food Insecurity: No Food Insecurity (08/29/2023) Hunger Screening Food Insecurity - Worry: Never True Food Insecurity - Inability: Never True Transportation Needs: Not on file Physical Activity: Not on file Stress: Not on file Social Connections: Not on file Interpersonal Safety: Not on file Housing Instability: Not on file Family History: Family History Problem Relation Age of Onset Cancer Mother Arthritis Mother Hypertension Mother Arthritis Father Diabetes Father Hypertension Father Hyperlipidemia Father Melanoma Father Skin cancer Father Drug abuse Sister Diabetes Sister Arthritis Brother [...] disease Paternal Grandfather Anesthesia problems Neg Hx Current Medications: Current Outpatient Medications: bisacodyL (DULCOLAX) 10 mg suppository, Insert 1 suppository (10 mg total) into the rectum in the morning., Disp: , Rfl: calcium citrate-vitamin D3 (CITRACAL PETITES) 200 mg calcium -250 units tablet, TAKE TWO TABLETS BYMOUTH THREE TIMES A DAY, Disp: 180 tablet, Rfl: 11 cyanocobalamin (VITAMIN B-12) 1,000 mcg/mL injection, INJECT 1 ML (1,000 MCG TOTAL) INTO THE APPROPRIATE MUSCLE EVERY 30 (THIRTY) DAYS., Disp: 3 mL, Rfl: 1 docusate sodium (COLACE) 100 mg capsule, Take 1 capsule (100 mg total) by mouth 2 (two) times a dayas needed for constipation., Disp: 10 capsule, Rfl: 0 omeprazole (PriLOSEC) 40 mg capsule, Take 1 capsule (40 mg total) by mouth every morning before breakfast., Disp: , Rfl: PNV,calcium 29-zrqe-iqhpd acid ( VITAMIN PLUS LOW IRON) 27 mg iron- 1 mg tablet, take one tablet by mouth once daily in the morning, Disp: 90 tablet, Rfl: 1 syringe with needle (BD LUER-HUMBERTO SYRINGE) 3 mL 25 x 1 1/2 syringe, USE TO INJECT CYANOBALAMIN ONCE EVERY MONTH, Disp: 3 each, Rfl: 1 tiZANidine (ZANAFLEX) 4 mg tablet, , Disp: , Rfl: zinc gluconate 50 mg tablet, Take 1 tablet (50 mg total) by mouth in the morning., Disp: 90 tablet,Rfl: 3 amitriptyline (ELAVIL) 25 mg tablet, TAKE 1/2 TO 1 TABLET BY MOUTH ONCE DAILY AT BEDTIME 30, Disp: 30 tablet, Rfl: 2 citalopram (CeleXA) 40 mg tablet, TAKE ONE TABLET BY MOUTH ONCE DAILY IN THE MORNING, Disp: 30 tablet, Rfl: 0 clindamycin-benzoyl peroxide (BENZACLIN) gel, Apply 1 Application topically daily as needed (acne)., Disp: 25 g, Rfl: 1 etonogestreL (NEXPLANON) 68 mg implant, 1 each (68 mg total) by subdermal route once., Disp: , Rfl: naltrexone HCl (NALTREXONE ORAL), Take 4.5 mg by mouth nightly. Back pain, Disp: , Rfl: pregabalin (LYRICA) 50 mg capsule, Take 1 capsule (50 mg total) by mouth in the morning and 1 capsule (50 mg total) before bedtime., Disp: 60 capsule, Rfl: 0 topiramate (TOPAMAX) 100 mg tablet, Take 1 tablet (100 mg total) by mouth nightly., Disp: 90 tablet, Rfl: 2 Review of systems: Review of Systems Physical Examination: Vitals: 08/20/24 1446 BP: 130/79 Pulse: 56 Body mass index is 23.8 kg/m . General exam: Alert and oriented x 3, comfortable, non-toxic. S1, S2. Nonlabored breathing. Extremities warm, well perfused. Negative Joaquin's sign. Breasts : Grade 1 ptosis. Depleted. Skin intact. BW left and right 14cm. Abdomen: symmetric, Skin is intact. Previous scars are present. Striae are present and are moderate. no hernia. Overhanging pannus: moderate . Intertriginous rash: none. Thickness subcutaneous adiposity: mild. Rectus diastasis: mild. Assessment: 1. Panniculitis 2. History of gastric bypass Plan: Ms. Rivera presents today with lower trunk lipodystrophy and 1. Panniculitis 2. History of gastric bypass The patient is a good candidate for insurance based panniculectomy & removal of umbilicus. We discussed these procedures today in detail including risks, benefits and alternatives. She expresses understanding that if she chooses a straight panniculectomy, that her umbilicus will be removed. We will send the patient a quote for cosmetic portions of surgery if indicated. Patient will return to clinic for a preoperative visit. Patient does not need medical clearance from her primary care physician. Discussed postoperative care and recovery. Discussed difference between an panniculectomy and abdominoplasty. Reviewed full recovery is 6 weeks, and drains will be in place for the first couple weekspostop. Total time spent was 45 minutes: Please note that portions of this note were generated using voice recognition [employer] dictation software. Although every effort was made to ensure the accuracy of this automated telecom analyst, some errors in telecom analyst may have occurred. - LORETO LEBLANC PA-C 08/20/24 3:32 PM I, Esthela Wilson MD, personally performed the face to face evaluation on this patient. I discussedwith the patient and confirmed the accuracy and completeness of the aforementioned history, and I personally performed the clinical examination of the patient. The above note reflects my medical decision making and input. I have established and discussed the course of treatment with the patient andLoreto Leblanc PA-C. My medical decision making and treatment plan are as follows: We discussed indications, alternatives, risks, benefits, expected scar pattern associated with the discussed procedure. Patient understands that panniculectomy surgery is functional in nature and there was no guarantee of cosmetic outcome dissatisfaction associated with the procedure. Patient appropriate for attempted insurance authorization. Follow up and schedule as above. ESTHELA WILSON MD 08/20/24 documented in this encounterGreen Cross HospitalStudio Systems [facility] Receiving [id number] History of Present illness Narrative* Zane Tera Shelley, CHANDLER - 08/13/2024 12:55 PM EST Pt presents today for a pre-enrollment Physical Exam for [facility]. Pt verifiedby ID. Visit Vitals BP 128/82 Pulse 78 Temp 98 F Resp 20 LMP (LMP Unknown) SpO2 99% OB Status Having periods Smoking Status Former Physical Exam Vitals reviewed. Constitutional: General: She is not in acute distress. Appearance: Normal appearance. HENT: Head: Normocephalic and atraumatic. Right Ear: Hearing, tympanic membrane, ear canal and external ear normal. Left Ear: Hearing, tympanic membrane, ear canal and external ear normal. Nose: Nose normal. Mouth/Throat: Lips: Apex. Mouth: Mucous membranes are moist. Pharynx: Oropharynx is clear. Uvula midline. Eyes: Extraocular Movements: Extraocular movements intact. Conjunctiva/sclera: Conjunctivae normal. Pupils: Pupils are equal, round, and reactive to light. Cardiovascular: Rate and Rhythm: Normal rate and regular rhythm. Pulses: Normal pulses. Heart sounds: Normal heart sounds. Pulmonary: Effort: Pulmonary effort is normal. No respiratory distress. Breath sounds: Normal breath sounds. No wheezing, rhonchi or rales. Abdominal: General: Abdomen is flat. Bowel sounds are normal. Palpations: Abdomen is soft. Musculoskeletal: General: Normal range of motion. Cervical back: Normal range of motion and neck supple. Skin: General: Skin is warm and dry. Capillary Refill: Capillary refill takes less than 2 seconds. Findings: No rash. Neurological: General: No focal deficit present. Mental Status: She is alert and oriented to person, place, and time. Psychiatric: Mood and Affect: Mood normal. Behavior: Behavior normal. Thought Content: Thought content normal. Judgment: Judgment normal. 1. Physical exam, pre-employment (Primary) She presents for physical today for [facility] physical. VS stable. Physical exam completed and WNL. Paperwork completed and scanned. 2. Encounter for wellness examination in adult See above. documented in this encounterUniversity Health Lakewood Medical [id number] History of Present illness Narrative* Marcelina Khan, SAM - 07/28/2024 11:30 AM ESTAssociated Order(s): Insertion/Removal of Contraceptive Capsule Post-Procedure Diagnose(s): Nexplanon removal Reason for Appointment: Patient ID: Michelle Rivera is a 39 y.o. female who presents for No chief complaint on file. Patient presents today for a Nexplanon Removal appointment. MEDICATIONS Current Outpatient Medications Medication Instructions bisacodyl (DULCOLAX) 10 mg, Rectal, Daily Calcium-Cholecalciferol 200-6.25 MG-MCG tablet 2 tablets, 3 times daily cyanocobalamin (VITAMIN B-12) 1,000 mcg, Once docusate sodium (COLACE) 100 mg, Oral, 2 times daily PRN Ferrous Sulfate (IRON PO) 1 tablet, Daily RT Nexplanon 68 mg omeprazole (PriLOSEC) [address] capsule Every 12 hours ondansetron (Zofran) 4 MG tablet Take by mouth MV-Min-Fe Fum-FA-DHA ( 1 PO) Daily RT zinc gluconate 50 mg, Daily ALLERGIES Allergies Allergen Reactions Penicillin G Hives and Swelling Penicillins Hives, Swelling and Unknown Sulfa Antibiotics Hives, Swelling and Unknown Ophthalmic agents Sulfamethoxazole-Trimethoprim Hives and Swelling Sulfur Other Reaction(s): Hives SURGICAL HISTORY Past Surgical History: Procedure Laterality Date ABDOMINAL SURGERY 11/28/2022 ADENOIDECTOMY GASTRIC BYPASS 2022 PAP SMEAR 11/26/2019 negative TONSILLECTOMY REVIEW OF SYSTEMS Review of Systems: Review of Systems Constitutional: Negative. HENT: Negative. Eyes: Negative. Respiratory: Negative. Cardiovascular: Negative. Gastrointestinal: Negative. Genitourinary: Negative. Musculoskeletal: Negative. Skin: Negative. Neurological: Negative. All other systems reviewed and are negative. Hematological: Negative. Endocrine: Negative. Allergic/Immunologic: Negative. OBJECTIVE Objective: Physical Exam Constitutional: Appearance: Normal appearance. She is well-developed. Cardiovascular: Rate and Rhythm: Normal rate and [...] nursing note reviewed. Exam conducted with a teenage babysitter present. Vitals: Estimated body mass index is 24.25 kg/m as calculated from the following: Height as of 07/22/24: 5' 5.5 . Weight as of 07/22/24: 148 lb. BP: No LMP recorded. Patient has had an implant. ASSESSMENT & PLAN Assessment/Plan Encounter Diagnosis: ICD-10-CM 1. Nexplanon removal Z30.46 Insertion/Removal of Contraceptive Capsule Date/Time: 07/28/2024 3:04 PM Performed by: Kirby Heredia DO Authorized by: Kirby Heredia DO Consent: Consent obtained: Written Consent given by: Patient Patient questions answered: yes Patient agrees, verbalizes understanding, and wants to proceed: yes Educational handouts given: yes Instructions and paperwork completed: yes Indication: Indication: Presence of non-biodegradable drug delivery implant Pre-procedure: Local anesthetic: Lidocaine without epinephrine The site was cleaned and prepped in a sterile fashion: yes Procedure: Procedure: Removal Small stab incision was made in arm: yes Left/right: Left Preloaded contraceptive capsule trocar was placed subdermally: no Visualization of implant was obtained: yes Contraceptive capsule was inserted and trocar removed: no Visualization of notch in stylet and palpation of device: no Palpation confirms placement by provider and patient: no Site was closed with steri-strips and pressure bandage applied: no Comments: Nexplanon Removal: Patient presents today for removal of Nexplanon. Written consent for procedure was obtained and patient was placed in supine position with left arm flexed at elbow. Skin was cleansed with alcohol/Betadine and 2cc of Lidocaine was injected underneath palpated Nexplanon at distal end. After allowing for sufficient time for numbing agent to take effect, the skin overlying the end of Nexplanon was incised with an 11inch blade scalpel. A 7.5in hemostat was inserted in the incision site to grab device and Nexplanon was released from tissue. Nexplanon implant was removed in its entirety and visualized by myself and patient. The skin was cleansed with alcohol and the incision was covered with gauze. Post- procedure care was reviewed and patient will continue with proposed plan of care. Patient wasadvised to call office with any questions or concerns. Follow Up: Patient is to return to the office as needed for any routine appointments. Documented by Marcelina Khan LPN on behalf of: Kirby Heredia DO documented in this encounterUniversity Health Lakewood Medical [id number] History of Present illness Narrative* Lidia Najera DO - 07/22/2024 11:30 AM EST General Surgery H&P Michelle Han Miguel 1985 Michelle Rivera is a 39 y.o. female presents for bright blood per rectum when wiping. Pt has been struggling with constipation now for some time but states it has recently gotten much worse in the past few weeks. She is straining during every bowel movement and can take up to 45mins to have a MB. Admits to abdominal pain at times that she feels bloated/full in nature. Pt denies a family history of colon cancer that they know of. She states that she did have a gastric bypass (RnY) in october of 2022 and since then she states has had changes in her stools/ more constipation issues but most recently after having undergone a hysterectomy she has increased issues with regular Bms. She will go days without having a BM at times. She has tried miralax once or twice but it didn't seem to work so she stopped. Has a prescription for colace but hasn't been able to start it yet. She denies any rectal bulges or masses of her anus. She does not have anything that she needs to reduce from her anus. She has been having pain with her Bms due to the size and discomfort of them coming out. She denies any anal itching. Denies hx of unplanned weight loss. Denies fevers, chills, or sweats. Denies nausea or vomiting that are persistent. She says some times she eats to fast and vomits back up her food but that has been happening less since she has been chewing her food more and taking smaller portions. SUBJECTIVE: MEDICATIONS: ALLERGIES Current Outpatient Medications Medication Instructions bisacodyl (DULCOLAX) 10 mg, Rectal, Daily bisacodyl (DULCOLAX) 5 mg, Oral, Once, Do not crush, chew, or split. Take as detailed on clinic hand out for colonoscopy prep Calcium-Cholecalciferol 200-6.25 MG-MCG tablet 2 tablets, 3 times daily cyanocobalamin (VITAMIN B-12) 1,000 mcg, Once docusate sodium (COLACE) 100 mg, Oral, 2 times daily PRN Ferrous Sulfate (IRON PO) 1 tablet, Daily RT Nexplanon 68 mg omeprazole (PriLOSEC) [address] capsule Every 12 hours ondansetron (Zofran) 4 MG tablet Take by mouth polyethylene glycol (PEG) 3350 (GLYCOLAX) 238 g, Oral, Once, Take as detailed from clinic hand out for colonoscopy prep MV-Min-Fe Fum-FA-DHA ( 1 PO) Daily RT zinc gluconate 50 mg, Daily Allergies Allergen Reactions Penicillin G Hives and Swelling Penicillins Hives, Swelling and Unknown Sulfa Antibiotics Hives, Swelling and Unknown Ophthalmic agents Sulfamethoxazole-Trimethoprim Hives and Swelling Sulfur Other Reaction(s): Hives PAST MEDICAL HISTORY: SOCIAL HISTORY SURGICAL HISTORY: Past Medical History: Diagnosis Date Anxiety with depression Back spasm Fibromyalgia Polina's disease (CMS/HCC) Herpes simplex History of degenerative disc disease Hypothyroidism (CMS/HCC) Social History Tobacco Use Smoking status: Former Types: Cigarettes Smokeless tobacco: Never Vaping Use Vaping status: Never Used Substance Use Topics Alcohol use: Not Currently Comment: Caffeine: 1-2 cups/day Drug use: Never Past Surgical History: Procedure Laterality Date ABDOMINAL SURGERY 11/28/2022 ADENOIDECTOMY GASTRIC BYPASS 2022 PAP SMEAR 11/26/2019 negative TONSILLECTOMY Family History Problem Relation Name Age of Onset Hyperlipidemia Mother Mary Hypertension Mother Mary Osteoarthritis Mother Mary Cancer Mother Mary Melanoma Father Balwinder Diabetes Father Balwinder Hypertension Father Balwinder Hyperlipidemia Father Balwinder Hyperlipidemia Maternal Grandmother Anita Hypertension Maternal Grandmother Anita Diabetes Maternal Grandmother Anita Heart disease Maternal Grandfather Hypertension Paternal Grandmother Xiomy Diabetes Paternal Grandmother Xiomy Heart disease Paternal Grandfather Asthma Sister Loreto Allergies Allergen Reactions Penicillin G Hives and Swelling Penicillins Hives, Swelling and Unknown Sulfa Antibiotics Hives, Swelling and Unknown Ophthalmic agents Sulfamethoxazole-Trimethoprim Hives and Swelling Sulfur Other Reaction(s): Hives Past Surgical History: Procedure Laterality Date ABDOMINAL SURGERY 11/28/2022 ADENOIDECTOMY GASTRIC BYPASS 2022 PAP SMEAR 11/26/2019 negative TONSILLECTOMY Tobacco Use: Medium Risk (07/22/2024) Patient History Smoking Tobacco Use: Former Smokeless Tobacco Use: Never Passive Exposure: Not on file Alcohol Use: Not At Risk (11/03/2020) Received from [facility] AUDIT-C Frequency of Alcohol Consumption: Never Average Number of Drinks: Not on file Frequency of Binge Drinking: Not on file Depression: Not at risk (03/04/2023) Received from [facility] PHQ-2 Total Score: 0 Physical Activity: Not on file REVIEW OF SYMPTOMS: Review of Systems All other systems reviewed and are negative. 10 systems were reviewed. Positives noted above. Remainder are negative per CMS guidelines. OBJECTIVE: Visit Vitals BP 116/68 Pulse 64 Ht 5' 5.5 Wt 148 lb SpO2 98% BMI 24.25 kg/m OB Status Implant Smoking Status Former BSA 1.76 m Physical Exam Vitals reviewed. General: AAOx3, NAD Head: atraumatic normocephalic Neck: trachea midline. No masses or lymphadenopathy Heart: Regular rate and rhythm Lungs: equal chest rise and fall, non labored breathing Abdomen: soft, nontender, and non distended Ext: motor 5/5 all extremities with no gross deformities Psych: alert and oriented, behavior appropriate ASSESSMENT AND PLAN: Assessment/Plan Diagnoses and all orders for this visit: Other constipation - bisacodyl (Dulcolax) 5 MG EC tablet; Take 1 tablet (5 mg) by mouth 1 time for 1 dose Do not crush, chew, or split. Take as detailed on clinic hand out for colonoscopy prep - polyethylene glycol, PEG, 3350 (Glycolax) 17 GM/SCOOP powder; Take 238 g by mouth 1 (one) time for 1 dose Take as detailed from clinic hand out for colonoscopy prep Rectal bleeding Internal hemorrhoids Plan: Discussed hemorrhoids and care. Talked about starting a bowel regimen and monitoring. If she continues to struggle with Bms and has issues with blood then a colonoscopy with possible internal bandingwould be appropriate. She was educated on the possibility of a hemorrhoidectomy if her bleeding is persistent and or internal banding does not prove effective. She was encouraged to discuss with her bariatric surgeon/office about checking her routine labs and problems with intermittent emesis. Hemorrhoid instructions: Avoid sitting on the toilet for long periods of time Avoid straining during bowel movements Milk of magnesia 30 ml daily until first bowel movement Take stool softeners (colace) and Miralax as discussed to help with comfort with bowel movements Siiting in warm tub of water/Sitz bath 2-3 times a day: after sitz bath, apply witch ilda and large cotton ball to perianal area for 5 minutes and then apply topical Preparation H thinly to the area High fiber diet, ensure adequate water intake daily Topical Dibucaine ointment twice daily as needed for discomfort/pain Thank you, Braxton Najera, DO documented in this encounterUniversity Health Lakewood Medical [id number] NotePatient Education Obstetrics and Gynecology Overactive Bladder, Adult Overactive bladder is a condition in which a person has a sudden and frequent need to urinate. A person might also leak urine if he or she cannot get to the bathroom fast enough (urinary incontinence). Sometimes, symptoms can interfere with work or social activities. What are the causes? Overactive bladder is associated with poor nerve signals between your bladder and your brain. Your bladder may get the signal to empty before it is full. You may also have very sensitive muscles thatmake your bladder squeeze too soon. This condition may also be caused by other factors, such as: ??? Medical conditions: ? Urinary tract infection. ? Infection of nearby tissues. ? Prostate enlargement. ? Bladder stones, inflammation, or tumors. ? Diabetes. ? Muscle or nerve weakness, especially from these conditions: ? A spinal cord injury. ? Stroke. ? Multiple sclerosis. ? Parkinson's disease. ??? Other causes: ? Surgery on the uterus or urethra. ? Drinking too much caffeine or alcohol. ? Certain medicines, especially those that eliminate extra fluid in the body (diuretics). ? Constipation. What increases the risk? You may be at greater risk for overactive bladder if you: ??? Are an older adult. ??? Smoke. ??? Are going through menopause. ??? Have prostate problems. ??? Have a neurological disease, such as stroke, dementia, Parkinson's disease, or multiple sclerosis (MS). ??? Eat or drink alcohol, spicy food, caffeine, and other things that irritate the bladder. ??? Are overweight or obese. What are the signs or symptoms? Symptoms of this condition include a sudden, strong urge to urinate. Other symptoms include: ??? Leaking urine. ??? Urinating 8 or more times a day. ??? Waking up to urinate 2 or more times overnight. How is this diagnosed? This condition may be diagnosed based on: ??? Your symptoms and medical history. ??? A physical exam. ??? Blood or urine tests to check for possible causes, such as infection. You may also need to see a health care provider who specializes in urinary tract problems. This is called a urologist. How is this treated? Treatment for overactive bladder depends on the cause of your condition and whether it is mild or severe. Treatment may include: ??? Bladder training, such as: ? Learning to control the urge to urinate by following a schedule to urinate at regular intervals. ? Doing Kegel exercises to strengthen the pelvic floor muscles that support your bladder. ??? Special devices, such as: ? Biofeedback. This uses sensors to help you become aware of your body's signals. ? Electrical stimulation. This uses electrodes placed inside the body (implanted) or outside the body. These electrodes send gentle pulses of electricity to strengthen the nerves or muscles that control the bladder. ? Women may use a plastic device, called a pessary, that fits into the vagina and supports the bladder. ??? Medicines, such as: ? Antibiotics to treat bladder infection. ? Antispasmodics to stop the bladder from releasing urine at the wrong time. ? Tricyclic antidepressants to relax bladder muscles. ? Injections of botulinum toxin type A directly into the bladder tissue to relax bladder muscles. ??? Surgery, such as: ? A device may be implanted to help manage the nerve signals that control urination. ? An electrode may be implanted to stimulate electrical signals in the bladder. ? A procedure may be done to change the shape of the bladder. This is done only in very severe cases. Follow these instructions at home: Eating and drinking ??? Make diet or lifestyle changes recommended by your health care provider. These may include: ? Drinking fluids throughout the day and not only with meals. ? Cutting down on caffeine or alcohol. ? Eating a healthy and balanced diet to prevent constipation. This may include: ? Choosing foods that are high in fiber, such as beans, whole grains, and fresh fruits and vegetables. ? Limiting foods that are high in fat and processed sugars, such as fried and sweet foods. Lifestyle ??? Lose weight if needed. ??? Do not use any products that contain nicotine or tobacco. These include cigarettes, chewing tobacco, and vaping devices, such as e-cigarettes. If you need help quitting, ask your health care provider. General instructions ??? Take mfab-fnb-zzzosip and prescription medicines only as told by your health care provider. ??? If you were prescribed an antibiotic medicine, take it as told by your health care provider. Donot stop taking the antibiotic even if you start to feel better. ??? Use any implants or pessary as told by your health care provider. ??? If needed, wear pads to absorb urine leakage. ??? Keep a log to track how much and when you drink, and whe (more content not included)...[facility]11-18-2024 Evaluation + Plan note Extracted from:Title:Pain Managment H&P new patientAuthor:Amy Durbin PA-C Date:07/20/24 Impression and Plan Patient is a 39-year-old female with a past medical history significant for lumbar spondylosis and chronic lower back pain. She has undergone previous RFA's with significant relief. These were done by Dr. Malhotra. Unfortunate, there was an insurance change and she is no longer able to see him. At this time, I reviewed her imaging. We discussed different options. We discussed medication options butat this time, she does not want to be on any medications because she has a family history of substance abuse. She is concerned about taking anything that could cause addiction. She does not think that she has any addiction issues but does not want to even have the medications around. She has been given Lyrica in the past but again because of the type of medication that it is she does not want to use this. We discussed bsga-dqh-hphsbzd options such as Tylenol. She is going to trial this as she is not able to use NSAIDs. We reviewed her imaging. Based on her imaging findings, her pain pattern, her failure to improve with conservative treatments and thus significant response she has gotten from the previous ablations I recommended bilateral medial branch RFA covering the L4-S1 facet joints. This would be done under fluoroscopy for therapeutic purposes. I told her that before we can pursue this though I need to obtain her op notes from Dr. Malhotra to assure that we are doing the same levels. We will work on obtaining these and pursue the ablation. She will follow-up 3 weeks after. SEAN score: 52%.[facility] [id number] NoteConsultation Note Patient: MICHELLE RIVERA Age: 39 years Sex: Female : 1985 Associated Diagnoses: None Author: Amy Durbin PA-C Basic Information Accompanied by: No one. Source of history: Self. History limitation: None. Chief Complaint 07/20/2024 10:18 EST Back Pain History of Present Illness Patient is a 39-year-old female presenting today as a new patient with complaints of lower back pain. This goes into her thighs. She states that this is the same pain she has always had. She has undergone 4 or 5 ablations. She gets them done every 6 months. These have been being done by Dr. Malhotra.She is not sure of what levels are exactly done but she states that this has always helped. Unfortunate, her insurance changed and he was no longer covered. She is here today to establish with our services to do treatments for the back pain. She rates it a 5/10. It affects her ability to stand. Affects her ability to walk. Affects her ability to be active. Patient likes to run. She works very hard on her weight and maintaining it because she got up to over 300 pounds. She had gastric bypass. She works very hard to maintain the current weight she is at. Patient does not take NSAIDs due to the history of gastric bypass. She does not take any qbcs-ejd-ycmjcxc medications because of this. She has done therapy in the past. This has not helped. The ablations have been the thing to give her the most relief. She is not sure exactly what levels were done but states that these helped her for the 6 months and then she just has it repeated. She overall just wants to get set up to have it done again. She rates the pain a 5/10. Worse with standing, worse with being upright, worse with being active. Worse with the running that she tries to do. She is to also do power lifting. She does not do this any longer as she states that this is originally what hurt her back. Review of Systems Constitutional: No fever, No chills. Eye: No recent visual problem. Ear/Nose/Mouth/Throat: No decreased hearing. Respiratory: No shortness of breath, No cough. Cardiovascular: No chest pain. Gastrointestinal: No nausea, No vomiting. Genitourinary: No dysuria, No hematuria. Hematology/Lymphatics: No bruising tendency, No bleeding tendency. Endocrine: No excessive thirst. Immunologic: Not immunocompromised. Musculoskeletal: Back pain, Joint pain, Muscle pain. Integumentary: No rash, No pruritus. Neurologic: Alert and oriented X4, No numbness, No tingling. Psychiatric: No anxiety, No depression. Health Status Allergies: Allergic Reactions (Selected) Severity Not Documented NSAIDs- Other. Penicillin- Unknown. Sulfa drugs- Unknown. Current medications: No qualifying data available Problem list: All Problems Anxiety with depression / SNOMED CT 521065682 / Confirmed Back spasm / SNOMED CT 795637611 / Confirmed Fibromyalgia / SNOMED CT 096136304 / Confirmed Polina's disease / SNOMED CT 16922564 / Confirmed Herpes simplex / SNOMED CT 523867643 / Confirmed History of degenerative disc disease / SNOMED CT 440214850 / Confirmed Hypothyroidism / SNOMED CT 12083630 / Confirmed Hypertension / SNOMED CT 9859000115 / Confirmed Heart murmur / SNOMED CT 317351188 / Confirmed Sleep apnea / SNOMED CT 628311581 / Confirmed Asthma / SNOMED CT 582598205 / Confirmed Acid reflux / SNOMED CT 043155680 / Confirmed Histories Past Medical History: No active or resolved past medical history items have been selected or recorded. Family History: Diabetes mellitus Grandparent Father Asthma Sister Hypertension Grandparent Father Mother Congenital heart disease Grandparent Hyperlipidemia Grandparent Father Mother Cancer Mother Procedure history: Partial hysterectomy/ablation (SNOMED CT 1029443323) on 07/17/2024 at 39 Years. Gastric bypass (SNOMED CT 3927941834) on 11/28/2022 at 37 Years. Adenoidectomy (SNOMED CT 017895674). Comments: 07/20/2024 10:20 Abbey Parada 01/[address] Tonsillectomy (SNOMED CT 496045846). Comments: 07/20/2024 10:20 Abbey Parada 01/2001 Social History Social & Psychosocial Habits Tobacco 07/20/2024 Tobacco Use: Former smoker, quit more Type: Cigarettes Concerns about tobacco use in household: No Smoking Cessation Yes . Physical Examination Vital Signs (last 24 hrs) Last Charted Heart Rate Peripheral 61 bpm (JUL 20 10:18) SBP 138 mmHg (JUL 20 10:18) DBP 87 mmHg (JUL 20 10:18) Weight 69 kg (JUL 20 10:18) BMI 25.34 (JUL 20 10:18) General: Alert and oriented, No acute distress. HENT: Normocephalic, Normal hearing. Respiratory: Respirations are non-labored. Cardiovascular: No edema. Musculoskeletal Normal range of motion. Normal strength. 5/5 lower extremity strength Pain with compression of the bilateral lumbar facet joints Increased lower back pain with bilateral facet (more content not included)... [facility] HospitalComment on above:Result Comment: Electronically Signed By: Ramakrishna CLAUDIO, Amy\.br\Date and Time Signed: 07/20/24 11:27 EST 07-06-2024 History of Present illness Narrative* Gayla Naylor MA - 07/06/2024 1:00 PM EST Reason for Appointment: Patient ID: Michelle Rivera [...] simplex History of degenerative disc disease Hypothyroidism ([facility]/HCC) Social History Tobacco Use Smoking status: Former [...] Xiomy Heart disease Paternal Grandfather Asthma Sister Loreto SURGICAL HISTORY Past Surgical History: Procedure Laterality [...] nursing note reviewed. Exam conducted with a teenage babysitter present. Vitals: Estimated body mass index is [...] of: Kirby Heredia DO documented in this encounterUniversity Health Lakewood Medical [id number] History of Present illness Narrative* Marjorie Jara - 05/28/2024 9:30 AM EDT Reason for Appointment: Patient ID: Michelle Rivera is a 39 y.o. female who presents for Pre-op Visit and Endometrial Biopsy Patient presents today for Pre Op/Endometrial Biopsy appointment. Patient is scheduled to undergo Da Sherrell assisted Bilateral Laparoscopic Salpingectomy and Endometrial Ablation with Manda on 06/25/[address] Heredia at [facility]. MEDICATIONS Current Outpatient Medications Medication Instructions Calcium-Cholecalciferol 200-6.25 MG-MCG tablet 2 tablets, Oral, 3 times daily cyanocobalamin (VITAMIN B-12) 1,000 mcg, Intramuscular, Once Ferrous Sulfate (IRON PO) 1 tablet, Oral, Daily RT omeprazole (PriLOSEC) [address] capsule Every 12 hours ondansetron (Zofran) 4 MG tablet Oral MV-Min-Fe Fum-FA-DHA ( 1 PO) Oral, Daily RT zinc gluconate 50 mg, Oral, Daily ALLERGIES Allergies Allergen Reactions Penicillins Hives, Swelling and Unknown Sulfa Antibiotics Hives, Swelling and Unknown Ophthalmic agents PROBLEMS Active Ambulatory Problems Diagnosis Date Noted [...] Xiomy Heart disease Paternal Grandfather Asthma Sister Loreto SURGICAL HISTORY Past Surgical History: Procedure Laterality Date ABDOMINAL SURGERY 11/28/2022 ADENOIDECTOMY GASTRIC BYPASS 2022 PAP SMEAR 11/26/2019 negative TONSILLECTOMY REVIEW OF SYSTEMS Review of Systems: Review of Systems Constitutional: Negative. HENT: Negative. Eyes: Negative. Respiratory: Negative. Cardiovascular: Negative. Gastrointestinal: Negative. Genitourinary: Positive for menstrual problem, pelvic pain and vaginal bleeding. Musculoskeletal: Negative. Skin: Negative. Neurological: Negative. All other systems reviewed and are negative. Hematological: Negative. Endocrine: Negative. Allergic/Immunologic: Negative. OBJECTIVE Objective: Physical Exam Constitutional: Appearance: Normal appearance. She is well-developed. Genitourinary: Vulva normal. Cardiovascular: Rate and Rhythm: Normal rate and [...] nursing note reviewed. Exam conducted with a teenage babysitter present. Vitals: Estimated body mass index is 22.78 kg/m as calculated from the following: Height as of 05/14/24: 5' 5.5 . Weight as of 05/14/24: 139 lb. BP: Patient's last menstrual period was 04/27/2024. ASSESSMENT & PLAN ICD-10-CM 1. Pre-op examination Z01.818 2. Request for sterilization Z30.2 3. Menorrhagia with regular cycle N92.0 4. Abnormal uterine bleeding (AUB) N93.9 5. Pelvic pain in female R10.2 EMBX: Patient was placed in dorsal lithotomy position with feet in stirrups. A sterile speculum was placed into the vagina and the cervix was visualized. The cervix was grasped with a single tooth tenaculum. The endometrial pipette was placed through the cervix into the uterus, endometrial curettage was performed and sampling was obtained, endometrial curettings were placed in formalin, and single tooth tenaculum was removed. Excellent hemostasis was assured. All instruments were removed from vagina. Pre Op: Patient is doing well but has desire for sterilization and has complaints of bleeding and pelvic pain. Patient has tried hormone therapy in the past but all attempts to subside patients issues of bleeding have failed. I have discussed conservative management vs. surgical management with the patientin detail and patient desires surgical management at this time. Patient has voiced understanding that a Bilateral Salpingectomy is considered to be permanent and patient will undergo Da Sherrell assisted Bilateral Laparoscopic Salpingectomy & Endometrial Ablation with Manda on 06/25/2024. Surgical consents were signed, mmc was reviewed, and patient is to proceed to [facility] OR. Patient stated she has complaints of rectal bleeding and constipation. I recommended that the patient use Metamucil every other day to help with constipation issues and patient will be referred to Dr. Najera to address rectal bleeding concern. Follow Up: Patient is to follow up between 1-2 weeks post op to assess proper healing and recovery from procedure. Documented by Opal Cardenas LPN on behalf of: Kirby Heredia DO documented in this encounterUniversity Health Lakewood Medical [id number] History of Present illness Narrative* Opal Cardenas LPN - 05/14/2024 9:20 AM EDT Reason for Appointment: Patient ID: Michelle Rivera is a 39 y.o. female who presents for Menstrual Problem Patient presents today for Consult appointment. MEDICATIONS Current Outpatient Medications Medication Instructions Calcium-Cholecalciferol 200-6.25 MG-MCG tablet 2 tablets, Oral, 3 times daily cyanocobalamin (VITAMIN B-12) 1,000 mcg, Intramuscular, Once Ferrous Sulfate (IRON PO) 1 tablet, Oral, Daily RT omeprazole (PriLOSEC) [address] capsule Every 12 hours ondansetron (Zofran) 4 MG tablet Oral MV-Min-Fe Fum-FA-DHA ( 1 PO) Oral, Daily RT zinc gluconate 50 mg, Oral, Daily ALLERGIES Allergies Allergen Reactions Penicillins Hives, Swelling and Unknown Sulfa Antibiotics Hives, Swelling and Unknown Ophthalmic agents PROBLEMS Active Ambulatory Problems Diagnosis Date Noted [...] Xiomy Heart disease Paternal Grandfather Asthma Sister Loreto SURGICAL HISTORY Past Surgical History: Procedure Laterality Date ABDOMINAL SURGERY 11/28/2022 ADENOIDECTOMY GASTRIC BYPASS 2022 PAP SMEAR 11/26/2019 negative TONSILLECTOMY REVIEW OF SYSTEMS Review of Systems: Review of Systems Genitourinary: Positive for vaginal bleeding and vaginal pain. All other systems reviewed and are negative. OBJECTIVE Objective: Physical Exam Constitutional: Appearance: Normal appearance. She is well-developed. Cardiovascular: Rate and Rhythm: Normal rate and [...] nursing note reviewed. Exam conducted with a teenage babysitter present. Vitals: Estimated body mass index is 22.78 kg/m as calculated from the following: Height as of this encounter: 5' 5.5 . Weight as of this encounter: 139 lb. BP: 106/74 Patient's last menstrual period was 04/27/2024. ASSESSMENT & PLAN ICD-10-CM 1. Menorrhagia with regular cycle N92.0 CBC and differential TSH hCG, quantitative, Protime-INR T4, free APTT Hemoglobin A1c US PELVIS-TRANSVAG IF INDICATED APTT POCT urinalysis dipstick manually resulted CANCELED: CBC and differential CANCELED: TSH CANCELED: hCG, quantitative, CANCELED: Protime-INR CANCELED: T4, free CANCELED: APTT CANCELED: Hemoglobin A1c CANCELED: US PELVIS-TRANSVAG IF INDICATED CANCELED: APTT 2. Urinary frequency R35.0 POCT urinalysis dipstick manually resulted Patient presents to office today to discuss irregular cycles and urinary frequency. Patient currently has Nexplanon and discussed all options with patient and patient desires to have bilateral Salpingectomy with Endometrial Ablation. Patient to be given labs and US to have done prior to next appoint ment. Patient will discuss dates with sleeve separator and will return to clinic for Pre-op/Endometrial Bx appointment. Patient does not desire to have Nexplanon removed until after surgical procedure. Documented by Opal Cardenas LPN on behalf of: Kirby Heredia DO documented in this encounterUniversity Health Lakewood Medical [id number] History of Present illness Narrative* Rivka Koenig APRN-MUSIC LEADER - 11/28/2023 11:00 AM EDT Subjective Patient ID: Michelle Rivera is a [...] a total on 160 lbs. Reports her highestweight was 315. She is following with pain [...] small headache, but she has not had amigraine. Headache typically affects the front of head [...] 11/28/2022 Performed by Nichol Barrett MD at [facility] RADIOFREQUENCY ABLATION NERVES Dr. Malhotra TONSILLECTOMY age [...] past medical history, past social history, past surgicalhistory, problem list, and medication reconciliation was completed including current medication andpost discharge medication. Review of Systems Constitutional: Negative [...] DAVID Lerner 11/29/23 1645 documented in this encounterWilson Health03-28-2024 History of Present illness Narrative* Nichol Barrett MD - 11/28/2023 9:00 AM EDT [facility] [address] [facility] [place] [id number] SURGICAL WEIGHT LOSS PROGRAM PROGRESS NOTE [id number]-ZV-[id number] Patient: Michelle Rivera Service Date: 11/28/2023 BP [...] Return in 1 year documented in this encounterWilson Health03-28-2024 Miscellaneous Notes* Addendum Note - Perla Bajwa RN - 11/28/2023 9:00 AM EDTAddended by: PERLA BAJWA on: 11/28/2023 10:36 AM Modules accepted: Orders documented in this encounterWilson Health03-28-2024 Note* Addendum Note - Perla Bajwa RN - 11/28/2023 9:00 AM EDTAddended by: PERLA BAJWA on: 11/28/2023 10:36 AM Modules accepted: Orders [facility]01-04-2024 NoteHNO ID: [id number] Author: MARCELINA MCMANUS OTR/L Service: ? Author Type: Occupational Therapist Type: Progress Notes Filed: 09/05/2023 12:57 Note Text: 09/05/2023 REHABILITATION AND SPORTS THERAPY OCCUPATIONAL THERAPY DISCONTINUANCE OF CARE Plan of Care Period: Start of Care Date: 02/22/23 Last Visit Date: 03/21/2023 Therapy Program: The following is a summary of the interventions provided for this episode of care; Therapeutic exercise, Manual therapy, Self-fci management, and Patient/Family/Caregiver Education Assessment: Based on most recent visit, patient was progressing as expected toward functional goals based on pain levels and documented subjective information on progress. Unable to formally assess goal achievement due to non-compliance with therapy plan of care. Reason for Discontinuation of Care: Patient has not returned to therapy or scheduled additional follow-up appointments. Marcelina Mcmanus, OTR/L #[id number] Township District Memorial Hospital12-28-2023 History of Present illness Narrative* Rivka Koenig, SPAR MACHINE OPERATOR HELPER-MUSIC LEADER - 08/29/2023 8:00 AM EST Subjective Patient ID: Michelle Rivera is a [...] in October for annual visit. She has losta total of about 110 lbs since surgery. [...] past medical history, past social history, past surgicalhistory, problem list, and medication reconciliation was completed including current medication andpost discharge medication. Review of Systems Constitutional: Positive for fatigue. Negative for chills, diaphoresis, fever and unexpected weightchange. HENT: Negative. Respiratory: Negative. Cardiovascular: Negative. Gastrointestinal: [...] DAVID Lerner 08/29/23 0950 documented in this encounterGreen Cross HospitalStudio Systems Detroit Receiving HospitalRhilop03-52-1246 Miscellaneous Notes* Telephone Encounter - Yamile Chaney - 07/05/2023 3:33 PM EDT I have tried to reach patient multiple times. Phone goes to [employer]. I sent 2 my chart messages. I had a spot on hold for 07/15 for quite awhile. I had to remove the hold to offer to another patient. Yamile Martini documented in this encounterKettering Health Behavioral Medical Center10-05-2023 NoteHNO ID: [id number] Author: Frank Negron, DO Service: ? Author [...] they present. Frank Negron D.O. [facility] Orthopaedic and Rheumatologic [place] Team Physician, [facility] Consulting Physician, [place] Lexi Reddy, Submarine Operator [phone] Patient verbalizes understanding and agrees with the treatment plan as detailed above.[facility]09-14-2023 Evaluation note* Encounter Date Diagnosis Assessment Notes Treatment Notes Treatment Clinical Notes May, Other spondylosis wi th radiculopathy, lumbar region (ICD-10 - M47.26) May,Lumbosacral spondylosis without myelopathy (ICD-10 - M47.817)Patient is voicing minimal complaints of pain at this time. She attributes this to a recent bilateral lumbar facet radiofrequency ablation. We will continue to monitor her symptoms in this region. Inthe meantime she will continue with physical therapy. Anatomy of spine discussed in detail with patient in regard to patients condition. Overall, patient believes their pain is reasonably well controlled, and she agrees with our treatment plan. We will follow up with her in six months, sooner if needed. May,hronic pain (ICD-10 - G89.29) May,OtherAbove note written by Anthony Carcamo LPN, Step Finisher. Edited and approved by Dr. Ed Malhotra MD. Barrett [employer] Other 09-01-2023 NoteHNO ID: [id number] Author: Frank Negron, DO Service: ? Author Type: Physician Type: Progress Notes Filed: 05/03/2023 10:17 AM Note Text: Lateral epicondylitis of right elbow (primary encounter diagnosis) Minimally Invasive Tenotomy Informed Consent Consent Obtained: Written Blossom Protocol A moment to CARE was completed. [...] retained foreign bodies accounted for. Frank Negron [facility]09-01-2023 Instructions* Patient Instructions* Frank Negron DO - 05/03/2023 9:51 AM EDT PHUONG [...] Best way to connect would be via [employer] or directly call Yamile at [phone]. If unable to connect, please proceed to [...] Thank you for choosing the [facility] Medical Orthopedic team for your care. Frank Negron D.O. Sports & Medical Orthopaedics [facility] Sports Health Team Physician, [facility] Yamile Reddy, Submarine Operator [phone] documented in this encounterKettering Health Behavioral Medical Center09-01-2023 History of Present illness Narrative* Frank Negron DO - 05/03/2023 9:50 AM EDTAssociated Order(s): Minimally Invasive Tenotomy Post-Procedure Diagnose(s): Lateral epicondylitis of right elbow Lateral epicondylitis of right elbow (primary encounter diagnosis) Minimally Invasive Tenotomy Informed Consent Consent Obtained: Written Blossom Protocol A moment to CARE was completed. [...] Negron DO documented in this encounterKettering Health Behavioral Medical Center07-20-2023 NoteHNO ID: [id number] Author: Marcelina Mcmanus OTR/Emely Service: ? Author Type: Occupational Therapist Type: Progress Notes Filed: 03/21/2023 4:01 PM Note Text: Episode Visit Count: 4 Therapist That Will Accept/Oversee The Plan Of Care: Estephania Whitt OT/Emely, CHT Start of Care Date: 02/22/23 [...] : 757 Session Stop Time : 847 ANIYAH Merino #[id number] Township District Memorial Hospital07-07-2023 Miscellaneous Notes* Telephone Encounter - Leslie Sparks RN - 03/08/2023 5:19 PM EDT Please see other encounter for documentation to patient. documented in this encounterKettering Health Behavioral Medical Center07-06-2023 NoteHNO ID: [id number] Author: ANIYAH Drew Service: ? Author Type: Occupational Therapist Type: Progress Notes Filed: 03/07/2023 11:52 AM Note Text: Episode Visit Count: 3 Therapist That Will Accept/Oversee The Plan Of Care: OFE Mancini, [facility] Start of Care Date: 02/22/23 Onset [...] to not working this week) *Significant bilateral deputy brand inspector strength deficit (as noted below) *Good compliance [...] OBJECTIVE MEASURES WITH LEVEL OF FUNCTION: Female deputy brand inspector norms: age 35-39 R: 50-99 L: 49-91 Hand Strength: Director Of Primary Care Position 2 Hand Strength R Director Of Primary Care Position 2 (lbs): 21 lbs (Slight increase in pain to 3/10) L Director Of Primary Care Position 2 (lbs): 40 lbs (No increase in pain remained at 1/10) TREATMENT: Therapeutic Exercise: 1: Discussed with patient her subjective experience since last treatment and reviewed her performance and compliance with plan of care 2: AROM bilateral wrist extension/flexion stretches with elbow flexed and also slightly extended performed 3: *Apex gel ball issued to patient; instructed, performed and added to home program gentle deputy brand inspector PREs to home program 4: *Modified IASTM utilizing the back edge of a spoon was instructed, performed and added to home program 5: Soft tissue circular massage performed Skilled Intervention: Patient was educated in proper exercise technique and purpose for exercises. Reviewed and educated patient on additions/changes for home exercise program as above (*). Home Program Assigned: 1: Apex gel ball: deputy brand inspector and hold each effort for 2-3 seconds, [...] Treatment Time Minutes (timed/untimed): 40 OFE Drew CHTCCenterville07-06-2023 History of Present illness Narrative* ANIYAH Drew [...] to not working this week) *Significant bilateral deputy brand inspector strength deficit (as noted below) *Good compliance [...] OBJECTIVE MEASURES WITH LEVEL OF FUNCTION: Female deputy brand inspector norms: age 35-39 R: 50-99 L: 49-91 Hand Strength: Director Of Primary Care Position 2 Hand Strength R Director Of Primary Care Position 2 (lbs): 21 lbs (Slight increase in pain to 3/10) L Director Of Primary Care Position 2 (lbs): 40 lbs (No increase in pain remained at 1/10) TREATMENT: Therapeutic Exercise: 1: Discussed with patient her subjective experience since last treatment and reviewed her performance and compliance with plan of care 2: AROM bilateral wrist extension/flexion stretches with elbow flexed and also slightly extended performed 3: *Apex gel ball issued to patient; instructed, performed and added to home program gentle deputy brand inspector PREs to home program 4: *Modified IASTM utilizing the back edge of a spoon was instructed, performed and added to home program 5: Soft tissue circular massage performed Skilled Intervention: Patient was educated in proper exercise technique and purpose for exercises. Reviewed and educated patient on additions/changes for home exercise program as above (*). Home Program Assigned: 1: Apex gel ball: deputy brand inspector and hold each effort for 2-3 seconds, [...] Drew CHT documented in this encounterKettering Health Behavioral Medical Center06-30-2023 NoteHNO ID: [id number] Author: ANIYAH Drew Service: ? Author Type: [...] more comfortable, but will try the tg Director Of Primary Care 4.7 sleeve issued to day as an [...] status, discuss if improved fit of tg Director Of Primary Care sleeves or if ordered alternate sleeve, discuss [...] for home exercise program as above (*). 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 upper extremities (more content not included)...[facility]06-30-2023 History of Present illness Narrative* [...] more comfortable, but will try the tg Director Of Primary Care 4.7 sleeve issued to day as an [...] status, discuss if improved fit of tg Director Of Primary Care sleeves or if ordered alternate sleeve, discuss [...] for home exercise program as above (*). Self-Retirement Management: 1: Reinforced modification of daily activity performance - especially during dog grooming tasks 2: Reinforced icing 3: Discussed compression sleeve options and reviewed some types available online 4: *tg Director Of Primary Care (size 4.7 ) compression sleeve issued as [...] wrist flexion 3 sessions daily. 6: tg Director Of Primary Care compression sleeve (size 4.7 ) can be utilized instead of the size F or G previously issued if less itchiness and more comfortable Billing Therapeutic Exercise Treatment Minutes: 25 Self-Care/Home Management Treatment Minutes: 30 Total Treatment Time Minutes (timed/untimed): 55 OFE Drew, CHT documented in this encounterKettering Health Behavioral Medical Center06-29-2023 Evaluation note* Encounter Date Diagnosis Assessment Notes Treatment Notes Treatment Clinical Notes Jan, Other spondylosis wi th radiculopathy, lumbar region (ICD-10 - M47.26) Jan,Lumbosacral spondylosis without myelopathy (ICD-10 - M47.817)We discussed treatment options for the patient's persistent [...] of spine discussed in detail inpatient in regardto patients condition. Jan,hronic pain (ICD-10 - G89.29) Jan,OtherAbove note written by Anthony Carcamo LPN, Step Finisher. Edited and approved by Dr. Ed Malhotra MD. [employer] Other 06-29-2023 Evaluation note* Encounter Date Diagnosis Assessment Notes Treatment Notes Treatment Clinical Notes Jan, Lumbosacral spondylosis without myelopathy (ICD-10 - M47.817) [employer] Other 06-23-2023 NoteHNO ID: [id number] Author: ANIYAH Drew Service: ? Author Type: Occupational Therapist Type: Progress Notes Filed: 03/01/2023 9:13 AM Note Text: Episode Visit Count: 1 Therapist That Will Accept/Oversee The Plan Of Care: OFE Mancini, CHT Start of Care Date: 02/22/23 Onset Date: (Rx 02/13/23, symptom onset 2-3 yrs with exacerbation past year) Patient Identified by Name and Date of : Yes [facility] REHABILITATION AND SPORTS THERAPY OCCUPATIONAL THERAPY EVALUATION [...] assessment, treatment plan and goals established for deputy brand inspector strength by Progress Note update. Patient will [...] of Visits Planned: 8 Planned Treatment Interventions: Self-fci management (64004), Neuromuscular re-education (46380), Manual therapy (65697), Therapeutic exercise (76681), Prefabricated orthosis fitting PLAN FOR NEXT VISIT: [...] recently passed. 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 I [...] brace but sometimes I (more content not included)...[facility]06-23-2023 History of Present illness Narrative* LY Drew/Emely - 02/22/2023 9:30 AM EDT Episode Visit Count: 1 Therapist That Will Accept/Oversee The Plan Of Care: Estephania Whitt OT/Emely, CHT Start of Care Date: 02/22/23 Onset Date: (Rx 02/13/23, symptom onset 2-3 yrs with exacerbation past year) Patient Identified by Name and Date of : Yes [facility] REHABILITATION AND SPORTS THERAPY OCCUPATIONAL THERAPY EVALUATION [...] assessment, treatment plan and goals established for deputy brand inspector strength by Progress Note update. Patient will [...] of Visits Planned: 8 Planned Treatment Interventions: Self-fci management (96378), Neuromuscular re-education (30661), Manual therapy (77563), Therapeutic exercise (37899), Prefabricated orthosis fitting PLAN FOR NEXT VISIT: [...] recently passed. 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 Self-Retirement Management: 1: Body ergonomics and positioning discussed [...] 15 Total Treatment Time Minutes (timed/untimed): 55 Estephania Whitt OT/L, CHT documented in this encounterKettering Health Behavioral Medical Center06-15-2023 NoteHNO ID: [id number] Author: Frank Negron, DO Service: ? Author Type: Physician Type: Progress Notes Filed: 02/14/2023 12:57 PM Note Text: [facility] Office Visit Documentation Note [facility] Sports Medicine Orthopaedic and Rheumatologic [place] REASON FOR VISIT / CHIEF COMPLAINT SERVICE [...] detailed above. Frank Negron D.O. [facility] Orthopaedic and Rheumatologic [place] Team Physician, [facility] Consulting Physician, [place] Leix Reddy, Submarine Operator [phone] 02-14-2023 History of Present illness Narrative* Frank Negron DO - 02/14/2023 11:22 AM EDT Images from the original note were not included. [facility] Office Visit Documentation Note [facility] Sports Medicine Orthopaedic and Rheumatologic [place] REASON FOR VISIT / CHIEF COMPLAINT SERVICE [...] detailed above. Frank Negron D.O. [facility] Orthopaedic and Rheumatologic [place] Team Physician, [facility] Consulting Physician, [place] Lexi Reddy, Submarine Operator [phone] documented in this encounterKettering [facility]06-02-2023 Miscellaneous Notes* Telephone Encounter - Lesly Sherman [...] like to complete this witha facility in [place], [place]. Pt does not have the fax number but will try to get this and call us back. [place] [facility] phone [phone] Patient has been identified by name and birthdate. Duration of symptoms: N/A Person calling: self Call patient at: on cell [phone] (home) Was an appointment scheduled: No Closing statement: Results or non-symptom based questions: Thank you for calling [facility], your call will be returned within the next business day. Amy Wilson documented in this encounterKettering [facility]05-11-2023 Evaluation note* Encounter Date Diagnosis Assessment Notes Treatment Notes Treatment Clinical Notes December, Lumbosacral spondylosis without myelopathy (ICD-10 - M47.817) [employer] Other 04-20-2023 NoteHNO ID: [id number] Author: Frank Negron DO Service: ? Author Type: Physician Type: Progress Notes Filed: 12/20/2022 12:52 PM Note Text: Right elbow pain (primary encounter diagnosis) Lateral epicondylitis of both elbows Biologics Injection: R elbow Previously completed treatments/injections: Platelet Rich Plasma Informed Consent Consent Obtained: Written Blossom Protocol A moment to CARE was completed. [...] retained foreign bodies accounted for. Frank Negron, [facility]04-20-2023 History of Present illness Narrative* Frank Negron, DO - 12/20/2022 12:29 PM EDTAssociated Order(s): Biologics Injection: R elbow Post-Procedure Diagnose(s): Right elbow pain; Lateral epicondylitis of both elbows Right elbow pain (primary encounter diagnosis) Lateral epicondylitis of both elbows Biologics Injection: R elbow Previously completed treatments/injections: Platelet Rich Plasma Informed Consent Consent Obtained: Written Blossom Protocol A moment to CARE was completed. [...] Negron DO documented in this encounterKettering Health [facility] Center04-13-2023 Miscellaneous Notes* Telephone Encounter - Therese Leblanc [...] would like someone to advise herat the [phone]. It is ok to leave a detailed VM if need Pt states she has a second # which is [phone] and that is the PT father Humphrey and you can leave a message with him as he goes to many of her appts with her. ( Per PT ) documented in this encounterKettering Health [facility] Center04-04-2023 NoteHNO ID: [id number] Author: Frank Negron DO Service: ? Author Type: Physician Type: Progress Notes Filed: 12/04/2022 10:03 AM Note Text: [facility] Office Visit Documentation Note [facility] Sports Medicine Orthopaedic and Rheumatologic [place] HISTORY OF PRESENT ILLNESS (HPI) SERVICE DATE: [...] EXCEPT FOR MINIMAL LATERAL EPICONDYLAR ENTHESOPATHY BILATERALLY Sales Office Manager: SHAYNE Transcribe Date/Time: Jul 20 2022 10:34A ... Last MRI Elbow - Impression Only MRI ELBOW WO IVCON RT Exam End: 09/11/2022 11:27 AM (Final result) Impression: IMPRESSION: 1. Tendinosis and a small partial tear of the common extensor tendon origin. Sales Office Manager: SHAYNE Transcribe Date/Time: Sep 11 2022 11:42A... [...] treatment plan. Frank Negron D.O. [facility] Orthopaedic and Rheumatologic Geriatric Social Worker, [facility] Team Physician, [facility] [employer] Consulting Physician, [place] Lexi Reddy, Submarine Operator [phone] [phone] History of Present illness Narrative* Frank Negron, - 12/04/2022 9:40 AM EDT Images from the original note were not included. [facility] Office Visit Documentation Note [facility] Sports Medicine Orthopaedic and Rheumatologic [place] HISTORY OF PRESENT ILLNESS (HPI) SERVICE DATE: [...] EXCEPT FOR MINIMAL LATERAL EPICONDYLAR ENTHESOPATHY BILATERALLY Sales Office Manager: SHAYNE Transcribe Date/Time: Jul 20 2022 10:34A ... Last MRI Elbow - Impression Only MRI ELBOW WO IVCON RT Exam End: 09/11/2022 11:27 AM (Final result) Impression: IMPRESSION: 1. Tendinosis and a small partial tear of the common extensor tendon origin. Sales Office Manager: SHAYNE Transcribe Date/Time: Sep 11 2022 11:42A... [...] treatment plan. Frank Negron D.O. [facility] Orthopaedic and Rheumatologic Geriatric Social Worker, [facility] & [facility] Program Team Physician, [facility] [employer] Consulting Physician, [place] Lexi Yamile Josuebetsy, Submarine Operator [phone] documented in this encounterKettering Health Behavior[facility] Center02-09-2023 Evaluation note* Encounter Date Diagnosis Assessment Notes Treatment Notes Treatment Clinical Notes Oct, Other spondylosis wi th radiculopathy, lumbar region (ICD-10 - M47.26) Patients [...] to increase her dose without instruction to doso. This medication was refilled today. Patient was [...] detail inpatient in regard to patients condition. Oct,Lumbosacral spondylosis without myelopathy (ICD-10 - M47.817) Oct,hronic pain (ICD-10 - G89.29) Oct,OtherAbove note written by Amrit Vragas MA, Step Finisher. Edited and approved by Dr. Ed Malhotra MD. [facility] Other 01-16-2023 NoteHNO ID: [id number] Author: Frank Negron DO Service: ? Author Type: Physician Type: Progress Notes Filed: 09/17/2022 10:48 AM Note Text: [facility] Office Visit Documentation Note [facility] Sports Medicine Orthopaedic and Rheumatologic [place] HISTORY OF PRESENT ILLNESS (HPI) SERVICE DATE: [...] EXCEPT FOR MINIMAL LATERAL EPICONDYLAR ENTHESOPATHY BILATERALLY Sales Office Manager: SHAYNE Transcribe Date/Time: Jul 20 2022 10:34A ... Last MRI Elbow - Impression Only MRI ELBOW WO IVCON RT Exam End: 09/11/2022 11:27 AM (Final result) Impression: IMPRESSION: 1. Tendinosis and a small partial tear of the common extensor tendon origin. Sales Office Manager: SHAYNE Transcribe Date/Time: Sep 11 2022 11:42A... ASSESSMENT / PLAN CLINICAL IMPRESSION / ASSESSMENT: CLINICAL IMPRESSION / ASSESSMENT: (M77.11, M77.12) Lateral epicondylitis of both elbows (primary encounter diagnosis) (M25.522) Left elbow pain (M25.521) Right elbow pain (M79.7) Fibromyalgia RECOMMENDATION / PLAN: Counseling / Referral A total of 20 minutes were spent [id number] with the patient during this encounter and [...] include #1 bilateral PRP injections at $1500 [id number] Option #2 bilateral minimally invasive percutaneous tendon [...] treatment plan. Frank Negron D.O. [facility] Orthopaedic and Rheumatologic Geriatric Social Worker, [facility] AND [employer] Program Team Physician, [facility] [employer] Consulting Physician, [place] Lexi Reddy, Submarine Operator [phone] 09-17-2022 Miscellaneous Notes* Telephone Encounter - Keshawn Castro - 09/17/2022 11:48 AM EST Pt is scheduled for their [facility] US on 11/16 at [place]. * Telephone Encounter - Xander Cantu - 09/17/2022 10:45 AM EST Visit Type: [...] held: N/A documented in this encounterKettering Health Behavioral [facility] Center01-16-2023 Instructions* Patient Instructions* Frank Negron DO - 09/17/2022 10:35 AM EST IMAGING & LABORATORY Dr. Negron has requested further imaging to help coordinate your individualized plan of care. Most of these images will need to be appropriately scheduled. MRI/CT/Xray : Please stop at the front desk receptionist to coordinate timing and scheduling of your image. IF your image is completed outside of the [facility], two steps will need to be taken and presented to Dr. Negron's office for review. 1. Gather a CD copy of your image at the time of service. 2. Gather Radiology Report, when available. Reports can be faxed to [phone]. [facility] Ultrasound : Please call [phone] to schedule your ultrasound appointment. LAB Requests: These can be completed at your nearest [facility] LAB facility. Please allow for up to one week for results to finalize. Follow up: You may request [employer] release of your imaging at 3 DAYS after your imaging appointment. Dr. Negron will often read the image and make a recommendation through [employer]. Please understand, that due to the complexity of the presenting issue, many patients will need a physical examination even after their imaging, which would require a follow up officeappointment. To make an appointment, please call [phone] or Request Appointment option in [employer]. Thank you. Dr. Prefecto Negron D.O. [facility] Orthopaedic and Rheumatologic [place] Team Physician, [facility] Consulting Physician, [place] Lexi Reddy, Submarine Operator [phone] documented in this encounterKettering Health Behavior[facility] Center01-16-2023 History of Present illness Narrative* Frank Negron DO - 09/17/2022 10:15 AM EST Images from the original note were not included. [facility] Office Visit Documentation Note [facility] Sports Medicine Orthopaedic and Rheumatologic [place] HISTORY OF PRESENT ILLNESS (HPI) SERVICE DATE: [...] EXCEPT FOR MINIMAL LATERAL EPICONDYLAR ENTHESOPATHY BILATERALLY Sales Office Manager: SHYANE Transcribe Date/Time: Jul 20 2022 10:34A ... Last MRI Elbow - Impression Only MRI ELBOW WO IVCON RT Exam End: 09/11/2022 11:27 AM (Final result) Impression: IMPRESSION: 1. Tendinosis and a small partial tear of the common extensor tendon origin. Sales Office Manager: SHAYNE Transcribe Date/Time: Sep 11 2022 11:42A... ASSESSMENT / PLAN CLINICAL IMPRESSION / ASSESSMENT: CLINICAL IMPRESSION / ASSESSMENT: (M77.11, M77.12) Lateral epicondylitis of both elbows (primary encounter diagnosis) (M25.522) Left elbow pain (M25.521) Right elbow pain (M79.7) Fibromyalgia RECOMMENDATION / PLAN: Counseling / Referral A total of 20 minutes were spent kzet-tr-iner with the patient during this encounter and [...] include #1 bilateral PRP injections at $1500 [id number] Option #2 bilateral minimally invasive percutaneous tendon [...] treatment plan. Frank Negron D.O. [facility] Orthopaedic and Rheumatologic Geriatric Social Worker, [facility] & [employer] Program Team Physician, [facility] [employer] Consulting Physician, [place] Lexi Yamile Reddy, Submarine Operator [phone] documented in this encounterKettering Health [facility] Center01-10-2023 NoteHNO ID: [id number] Author: RT Dickson(R) Service: ? Author Type: [...] BY: RT Dickson(R) September 11, 2022 11:22 [facility]01-10-2023 History of Present illness Narrative* RT Dickson(R) [...] 11:22 AM documented in this encounterKettering Health Behavior[facility] Center01-09-2023 Evaluation note* Encounter Date Diagnosis Assessment Notes Treatment Notes Treatment Clinical Notes Sep, Other spondylosis wi th radiculopathy, lumbar region (ICD-10 - M47.26) We discussed treatment options for the patient's persistent lumbar pain, radiating into the lateralaspect of her bilateral lower extremities. Patient has [...] we can consider back on trek in [place], chronic pain therapy. . Anatomy of spine discussed in detail inpatient in regard to patients condition. Sep,Lumbosacral spondylosis without myelopathy (ICD-10 - M47.817) Sep,hronic pain (ICD-10 - G89.29) Sep,OtherAbove note written by Anthony Carcamo LPN, Step Finisher. Edited and approved by Dr. Ed Malhotra MD. [employer] Other 12-19-2022 NoteHNO ID: [id number] Author: RT Steve(R) Service: Radiology Author Type: [...] BY: RT Steve(R) August 20, 2022 10:54 [facility] [id number] History of Present illness Narrative* Frank Negron, - 08/20/2022 9:59 AM EST Images from the original note were not included. [facility] Office Visit Documentation Note [facility] Sports Medicine Orthopaedic and Rheumatologic [place] HISTORY OF PRESENT ILLNESS (HPI) CHIEF COMPLAINT / REASON FOR VISIT SERVICE DATE: August 20, 2022 PCP: No primary care provider on file. Michelle Rivera is here today at request of Lester Gomez MD specifically for consultation of my opinion in regards to the chief complaint listed below. Correspondence will be shared today via the [employer] record or through regular mail, where applicable. [...] clinic for her elbow on 07/20/2022 with Lester Gomez. Most recent elbow imaging was completed [...] EXCEPT FOR MINIMAL LATERAL EPICONDYLAR ENTHESOPATHY BILATERALLY Sales Office Manager: SHAYNE Transcribe Date/Time: Jul 20 2022 10:34A [...] treatment plan. Frank Negron D.O. [facility] Orthopaedic and Rheumatologic Geriatric Social Worker, [facility] & [employer] Program Team Physician, [facility] [employer] Consulting Physician, [place] Lexi Reddy, Submarine Operator [phone] documented in this encounterKettering Health [facility] Center12-05-2022 Evaluation note* Encounter Date Diagnosis Assessment Notes Treatment Notes Treatment Clinical Notes Aug, Other spondylosis wi th radiculopathy, lumbar region (ICD-10 - M47.26) We discussed treatment options for the patient's persistent lumbar pain, radiating into the lateralaspect of her bilateral lower extremities. Patient has failed multiple previous conservative treatment options and continue to complain of progressing symptoms. Given MRI results, as well as locationof pain and exam findings, patient is a [...] detail inpatient in regard to patients condition. Aug,Lumbosacral spondylosis without myelopathy (ICD-10 - M47.817) Aug,hronic pain (ICD-10 - G89.29) Aug,therAbove note written by Anthony Carcamo LPN, Step Finisher. Edited and approved by Dr. Ed Malhotra MD. 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 SIGNATURE: Lester Gomez DO PATIENT NAME: Michelle Rivera DATE: July 20, 2022 TIME: 9:48 AM documented in this encounterKettering Health [facility]al [facility] Center08-23-2022 Evaluation note* Encounter Date Diagnosis Assessment Notes Treatment Notes Treatment Clinical Notes Apr, Other spondylosis wi th radiculopathy, lumbar region (ICD-10 - M47.26) Patients denies any radiating symptoms into her lower extremities following a recent lumbar epidural steroid injection. We will continue to monitor. Apr,Lumbosacral spondylosis without myelopathy (ICD-10 - M47.817) Patients primary complaint today continues to be worsening low lumbar pain. She shows notable pain consistent with the facet region upon exam which is supported by previous imaging. Based on previouspositive results, as well as location of pain and exam findings, patient is a candidate for bilateral lumbar facet radiofrequency ablations which we will proceed with. Risks and benefits of procedureexplained to patient; patient verbalizes understanding. Anatomy of spine discussed in detail with patient in regards to patients condition. Apr,hronic pain (ICD-10 - G89.29)Lyrica appears to be providing some relief of the patients generalized pain symptoms. This medication was refilled today. OARRS was processed and reviewed, no discrepencies. Apr,therAbove note written by Amrit Vargas MA, Step Finisher. Edited and approved by Dr. Ed Malhotra MD. [employer] Other 08-16-2022 [facility] Evaluation [facility]* Encounter Date Diagnosis Assessment Notes Treatment Notes Treatment Clinical Notes Mar, Other spondylosis wi th radiculopathy, lumbar region (ICD-10 - M47.26) Patients denies any radiating symptoms into her lower extremities following a recent lumbar epidural steroid injection. We will continue to monitor. Mar,Lumbosacral spondylosis without myelopathy (ICD-10 - M47.817) Patients [...] daily. OARRS was processed and reviewed, no d iscrepencies. Risks and side effects of this medication was discussed in detail with the patient who voiced understanding. Anatomy of spine discussed in detail with patient in regards to patients condition. Mar,hronic pain (ICD-10 - G89.29) Mar,ther low back pain (ICD-10 - M54.59) Mar,therAbove note written by Amrit Vargas MA, Step Finisher. Edited and approved by Dr. Ed Malhotra MD. [facility] Other 07-18-2022 Evaluation note* Encounter Date Diagnosis Assessment Notes Treatment Notes Treatment Clinical Notes Mar, Left elbow pain (ICD-10 - M25.52 2) Mar,Lateral epicondylitis of left elbow (ICD-10 - M77.12)Michelle returns with ongoing bilateral elbow lateral epicondylitis. At this juncture we have discussed the findings and diagnosis as well as reviewed appropriate imaging and performed interpretation ofrelated testing and examination. Prior medical notes and history have been reviewed. At this time Iwould recommend counterforce bracing, anti-inflammatory medications, home exercise [...] into patients pharmacy. Patient given AAOS handout Mar,cute bilateral low back pain, unspecified whether sciatica present (ICD-10 - M54.5)We did not see Michelle for this today but she did bring it up. She tells me she has a history. Follow-up with therapy. She is working on weight loss Mar,Morbid (severe) obesity due to excess calories (ICD-10 - E66.01) Today we discussed obesity. We discussed the range of BMI and the patient's BMI of 43. We discussedweight loss strategies through increased physical activity as well as decrease caloric intake. We offered referral for bariatric services. Our discussion is limited to 5 minutes. Discussed with patient we will send a referral for Dr. Chaney Mar,ight lateral epicondylitis (ICD-10 - M77.11)Same treatment as above for left. She would like to try an injection today. Under sterile techniquethe patient's right lateral epicondyle was treated with 1 cc of Marcaine 1 cc of Kenalog and barbotaged type fashion. She tolerated this well. Anti- inflammatories, bracing, stretching as instructed We performed a 1/1cc marcaine / kenalog cortisone injection into the lateral epicondylitis under sterile technique. Patient tolerated the injection well without adverse reaction. Mar,ther low back pain (ICD-10 - M54.59)Patient has history of lumbar epidural injections. Would update lumbar spine films and refer to Dr.T. Malhotra for possible injections. [facility] Other 04-28-2022 Evaluation note* Encounter Date Diagnosis Assessment Notes Treatment Notes Treatment Clinical Notes Dec, Other low back pain (ICD-10 - M5 4.59) Dec,ther spondylosis with radiculopathy, lumbar region (ICD-10 - M47.26)Patient's main complaint continues to be her back [...] with patient in regards to patients condition. Dec,Hip pain (ICD-10 - M25.559) Dec,hronic pain (ICD-10 - G89.29) Dec,therAbove note written by Amrit Vargas MA, Step Finisher. Edited and approved by Dr. Ed Malhotra MD. 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 Oct,hronic pain (ICD-10 - G89.29) Oct,Hip pain (ICD-10 - M25.559) Oct,therAbove note written by Anthony Carcamo LPN, Step Finisher. Edited and approved by Dr. Ed Malhotra MD. 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 Oct,hronic pain (ICD-10 - G89.29) Oct,therAbove note written by Amrit Vargas CMA, Step Finisher. Edited and approved by Dr. Ed Malhotra MD. [facility] Other 01-13-2022 Evaluation note* Encounter Date Diagnosis Assessment Notes Treatment Notes Treatment Clinical Notes Sep, Other low back pain (ICD-10 - M5 4.59) Patient's main complaint is her axial back pain symptoms. She denies radicular symptoms. Patient shows notable pain consistent with facet region supported by recent imaging. Given these findings as well as physical exam we will plan to proceed with bilateral lumbar facet joint injections. Risks andbenefits of procedure explained to patient; patient verbalizes understanding. 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 Edited and approved by Dr. Ed Malhotra MD.Medical decision making shows a new problem to me with further workup planned or suggested with thepotential for extensive treatment options that were considered with the most applicable given this patient's situation as noted above. Treatment options considered include a combination of physical therapy approaches, pharmacologic management, and interventional procedures. Those most applicable tothe patient were discussed at this time. Risk [...] negative findings were considered in medical decision-making. [facility] Other 06-01-2015 History general Narrative - Reported* Type Description Date Medical History Back pain Medical HistoryHashimoto's diseaseMedical HistoryasthmaSurgical History [id number] Historyback painJune 2014 [facility] Other 06-01-2015 History general Narrative - Reported* Type Description Date Medical History Back pain Medical HistoryHashimoto's diseaseMedical HistoryasthmaSurgical History [id number] Historygastric [id number] Historyback painJune 2014 [facility] Other Evaluation + Plan note Future Appointments Appointment Date:07/20/2024 10:45:00 AM Scheduled Provider:Amy Durbin PA-C Location[facility] [place] Appointment Type:Pain Management - New (FT) [facility] evaluation noteNo InformationNortRothman [facility] Other Evaluation noteNo assessment information available [facility] Work Phone: Evaluation note* Diagnosis Lateral epicondylitis of both elbows- Primary Lateral epicondylitis of elbow documented in this encounter [facility]* Diagnosis Left elbow pain- Primary Pain in joint, upper arm Lateral epicondylitis of both elbows Lateral epicondylitis of elbow Right elbow pain Pain in joint, upper arm Fibromyalgia Mylagia and myositis, unspecified Anxiety Anxiety state, unspecified Sleep apnea, unspecified type Cervicalgia documented [facility] encounter [place] [facility] Diagnosis Lateral epicondylitis of both elbows- Primary Lateral epicondylitis of elbow Left elbow pain Pain in joint, upper arm Right elbow pain Pain in joint, upper arm Fibromyalgia Mylagia and myositis, unspecified documented [facility] encounter [place] [facility]* Diagnosis Lateral epicondylitis of both elbows- Primary Lateral epicondylitis of elbow Left elbow pain Pain in joint, upper arm documented [facility] encounter [place] [facility]* Diagnosis Right elbow pain- Primary Pain in joint, upper arm Lateral epicondylitis of both elbows Lateral epicondylitis of elbow [facility] Right elbow pain- Primary Pain in joint, upper arm Lateral epicondylitis of right elbow Lateral epicondylitis of elbow [facility] Right elbow pain- Primary Pain in joint, upper arm Lateral epicondylitis of right elbow Lateral epicondylitis of elbow [facility] Diagnosis Right elbow pain- Primary Pain in joint, upper arm Lateral epicondylitis of right elbow Lateral epicondylitis of elbow [facility] Right elbow pain- Primary Pain in joint, upper arm Lateral epicondylitis of right elbow Lateral epicondylitis of elbow [facility] Diagnosis Lateral epicondylitis of right elbow- Primary Lateral epicondylitis of elbow [facility] Diagnosis Onset Date Resolution Status Sinusitis noneactiveSore throatnoneactiveArthritis of lumbosacral spineacuteChronic pain acuteRight hip painnoneactive [facility] Work Phone: Evaluation note* Diagnosis Lateral epicondylitis of both elbows Lateral epicondylitis of elbow Left elbow pain Pain in joint, upper arm Right elbow pain Pain in joint, upper arm Fibromyalgia Mylagia and myositis, unspecified Anxiety Anxiety state, unspecified Sleep apnea, unspecified type Cervicalgia [facility] Pain Generalized pain [facility] Diagnosis Well woman exam with routine gynecological exam Routine gynecological examination documented [facility]* Diagnosis Other constipation- Primary Rectal bleeding Hemorrhage of rectum and anus Internal hemorrhoids Internal hemorrhoids without mention of complication documented in this encounter [facility]* Diagnosis Nexplanon removal documented in this encounter [facility]* Diagnosis Menorrhagia with regular cycle Urinary frequency documented in this encounter [facility]* Diagnosis Physical exam, pre-employment- Primary Health examination of defined subpopulation Encounter for wellness examination in adult documented in this encounter [facility]* Diagnosis Pre-op examination Request for sterilization Menorrhagia with regular cycle Abnormal uterine bleeding (AUB) Pelvic pain in female Unspecified symptom associated with female genital organs documented in this encounter [facility]* Diagnosis Panniculitis- Primary Panniculitis, unspecified site History of gastric bypass [facility] Diagnosis Chronic low back pain with sciatica, sciatica laterality unspecified, unspecified back pain laterality- Primary Personal history of fibromyalgia Personal history of other musculoskeletal disorders Polina's disease Chronic lymphocytic thyroiditis Postsurgical malabsorption Drug-induced constipation Other constipation History of gastric bypass [facility] Diagnosis Migraine with aura and without status migrainosus, not intractable- Primary Malnutrition following gastrointestinal surgery Other and unspecified postsurgical nonabsorption History of gastric bypass Postsurgical malabsorption Abdominal pannus Localized adiposity documented in this encounter [facility]* Diagnosis Acne, unspecified acne type- Primary Chronic low back pain with sciatica, sciatica laterality unspecified, unspecified back pain laterality S/P bariatric surgery History of gastric bypass Encounter to establish care documented in this encounter [facility]* Diagnosis 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 Other and unspecified postsurgical nonabsorption History of gastric bypass documented in this encounter [facility]* Diagnosis Malnutrition following gastrointestinal surgery Other and unspecified postsurgical nonabsorption History of gastric bypass Postsurgical malabsorption Vitamin B12 deficiency Other B-complex deficiencies documented in this encounter [facility]* Diagnosis Malnutrition following gastrointestinal surgery- Primary Other and unspecified postsurgical nonabsorption Postsurgical malabsorption History of gastric bypass documented in this encounter [facility]* Diagnosis History of gastric bypass- Primary Malnutrition following gastrointestinal surgery Other and unspecified postsurgical nonabsorption Postsurgical malabsorption Iron excess Disorders of iron metabolism Zinc deficiency Mineral deficiency, not elsewhere classified Constipation, unspecified constipation type Postprandial abdominal pain in right upper quadrant documented in this encounter [facility]* Diagnosis Change in bowel habits- Primary Other symptoms involving digestive system Malnutrition following gastrointestinal surgery Other and unspecified postsurgical nonabsorption Postsurgical malabsorption History of gastric bypass Pain of upper abdomen documented in this encounter [facility]* Diagnosis Dietary counseling and surveillance- Primary History of gastric bypass documented in this encounter [facility]* Diagnosis ADHD (attention deficit hyperactivity disorder), inattentive type- Primary documented in this encounter [facility]* Diagnosis Irritable bowel syndrome with constipation- Primary Irritable bowel syndrome documented in this encounter [facility]* Diagnosis 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 Hasn't had endoscopy. [id number] Work Phone: Hospital course Narrative No data available for this section [facility] Hospital Discharge instructions No data available for this section [facility] InstructionsNot on filedocumented in this encounter [facility] filedocumented in this encounter [facility]ructionsNot on filedocumented in this encounter [facility]ructionsNot on filedocumented in this encounter [facility]ructionsNot on filedocumented in this encounter [facility]Not on filedocumented in this encounter [facility]ructionsNot on filedocumented in this encounter [facility]* Attachments The following attachments cannot be sent through Care Everywhere. * Atomoxetine, ADULT (Spanish) documented in [facility] SystemInstructionsNot on file documented in this encounterProMedica [facility] SystemProgress note No data available for this section [facility] reason for referral (narrative)* Diagnostic Procedure Only (Routine) - AuthorizedSpecialtyDiagnoses / ProceduresReferred By Contact Referred To ContactUS IMAGING Diagnoses Lateral epicondylitis of both elbows Procedures US ELBOW LEFT US LMTD JOINT/OTH NONVASC XTR STRUX R-T W/[place] [address] [place] [address] [facility] Referral IDStatusReasonStart DateExpiration DateVisits RequestedVisits [id number] Auto-Generated Referral / [facility] for referral (narrative)* Diagnostic Procedure Only (Routine) - ClosedSpecialtyDiagnoses / ProceduresReferred By ContactReferred To ContactXR IMAGING Diagnoses Pain Procedures XR ELBOW SPECIAL VIEWS AP/LAT/OTHER RIGHT RADEX ELBOW COMPLETE MINIMUM 3 VIEWS Lester Gomez, DO [address] [place] [address] [place] [address] Referral IDStatusReasonStart DateExpiration DateVisits RequestedVisits [id number] Auto-Generated Referral / * Diagnostic Procedure Only (Routine) - ClosedSpecialtyDiagnoses / Procedures Referred By ContactReferred To ContactXR IMAGING Diagnoses Pain Procedures XR ELBOW SPECIAL VIEWS AP/LAT/OTHER LEFT RADEX ELBOW COMPLETE MINIMUM 3 VIEWS Lester Gomez, DO [address] [place] [address] [place] [address] Referral IDStatusReasonStart DateExpiration DateVisits RequestedVisits [id number] Auto-Generated Referral / [facility] for referral (narrative)* Consultation (Routine) - Pending ReviewSpecialtyDiagnoses / ProceduresReferred By ContactReferred To ContactPlastic & Reconstructive Surgery Diagnoses History of gastric bypass Abdominal pannus Localized adiposity Nichol Barrett MD [address] [place] [address] Esthela Wilson MD [address] [place] [address] Referral IDStatusReasonStart DateExpiration DateVisits RequestedVisits [id number] Review Specialty Services Required [facility] HealthReason for referral (narrative)No reason for referral [facility] Work Phone: Reason for visit NarrativeREVIEW MEDICATION MANAGEMENT [facility] Other Reason for visit Narrative* Diagnostic Procedure Only (Routine) - ClosedSpecialtyDiagnoses / ProceduresReferred By ContactReferred To ContactXR IMAGING Diagnoses Pain Procedures XR ELBOW SPECIAL VIEWS AP/LAT/OTHER RIGHT RADEX ELBOW COMPLETE MINIMUM 3 VIEWS Lester Gomez, DO [address] [place] [address] [place] [address] Referral IDStatusReasonStauburn DateExpiration DateVisits RequestedVisits [id number] Auto-Generated Referral / [facility] Summary Purpose Family History Unknown Family Member Name Dates Details Family history of hyperlipid emia: Father, Sibling(V18.19, Z83.438) Status:ActiveFamily history of type 2 diabetes mellitus: Father(V18.0, Z83.3) Status:ActiveFamily history of hypertension: Mother, Father(V17.49, Z82.49) Status:ActiveFamily history of cardiac disorder: Maternal Grandmother(V17.49, Z82.49) Status:ActiveFamily history of diabetes mellitus: Maternal Grandmother(V18.0, Z83.3) Status:Active Unknown Family Member Name Dates Details Family history of hyperlipid emia: Father, Sibling(V18.19, Z83.438) Status:ActiveFamily history of type 2 diabetes mellitus: Father(V18.0, Z83.3) Status:ActiveFamily history of hypertension: Mother, Father(V17.49, Z82.49) Status:ActiveFamily history of cardiac disorder: Maternal Grandmother(V17.49, Z82.49) Status:ActiveFamily history of diabetes mellitus: Maternal Grandmother(V18.0, Z83.3) Status:Active Unknown Family Member Name Dates Details Family history of hyperlipid emia: Father, Sibling(V18.19, Z83.438) Status:ActiveFamily history of type 2 diabetes mellitus: Father(V18.0, Z83.3) Status:ActiveFamily history of hypertension: Mother, Father(V17.49, Z82.49) Status:ActiveFamily history of cardiac disorder: Maternal Grandmother(V17.49, Z82.49) Status:ActiveFamily history of diabetes mellitus: Maternal Grandmother(V18.0, Z83.3) Status:Active Unknown Family Member Name Dates Details Family history of hyperlipid emia: Father, Sibling(V18.19, Z83.438) Status:ActiveFamily history of type 2 diabetes mellitus: Father(V18.0, Z83.3) Status:ActiveFamily history of hypertension: Mother, Father(V17.49, Z82.49) Status:ActiveFamily history of cardiac disorder: Maternal Grandmother(V17.49, Z82.49) Status:ActiveFamily history of diabetes mellitus: Maternal Grandmother(V18.0, Z83.3) Status:Active Unknown Family Member Name Dates Details Family history of hyperlipid emia: Father, Sibling(V18.19, Z83.438) Status:ActiveFamily history of hypertension: Mother, Father(V17.49, Z82.49) Status:ActiveFamily history of type 2 diabetes mellitus: Father(V18.0, Z83.3) Status:ActiveFamily history of cardiac disorder: Maternal Grandmother(V17.49, Z82.49) Status:ActiveFamily history of diabetes mellitus: Maternal Grandmother(V18.0, Z83.3) Status:Active Unknown Family Member Name Dates Details Family history of hyperlipid emia: Father, Sibling(V18.19, Z83.438) Status:ActiveFamily history of type 2 diabetes mellitus: Father(V18.0, Z83.3) Status:ActiveFamily history of hypertension: Mother, Father(V17.49, Z82.49) Status:ActiveFamily history of cardiac disorder: Maternal Grandmother(V17.49, Z82.49) Status:ActiveFamily history of diabetes mellitus: Maternal Grandmother(V18.0, Z83.3) Status:Active Unknown Family Member Name Dates Details Family history of hyperlipid emia: Father, Sibling(V18.19, Z83.438) Status:ActiveFamily history of type 2 diabetes mellitus: Father(V18.0, Z83.3) Status:ActiveFamily history of hypertension: Mother, Father(V17.49, Z82.49) Status:ActiveFamily history of cardiac disorder: Maternal Grandmother(V17.49, Z82.49) Status:ActiveFamily history of diabetes mellitus: Maternal Grandmother(V18.0, Z83.3) Status:Active Unknown Family Member Name Dates Details Family history of hyperlipid emia: Father, Sibling(V18.19, Z83.438) Status:ActiveFamily history of type 2 diabetes mellitus: Father(V18.0, Z83.3) Status:ActiveFamily history of hypertension: Mother, Father(V17.49, Z82.49) Status:ActiveFamily history of cardiac disorder: Maternal Grandmother(V17.49, Z82.49) Status:ActiveFamily history of diabetes mellitus: Maternal Grandmother(V18.0, Z83.3) Status:Active Unknown Family Member Name Dates Details Family history of diabetes m ellitus: Maternal Grandmother(V18.0, Z83.3) Status:ActiveFamily history of cardiac disorder: Maternal Grandmother(V17.49, Z82.49) Status:ActiveFamily history of hypertension: Mother, Father(V17.49, Z82.49) Status:ActiveFamily history of type 2 diabetes mellitus: Father(V18.0, Z83.3) Status:ActiveFamily history of hyperlipidemia: Father, Sibling(V18.19, Z83.438) Status:Active Unknown Family Member Name Dates Details Family history of cardiac di sorder: Maternal Grandmother(V17.49, Z82.49) Status:ActiveFamily history of diabetes mellitus: Maternal Grandmother(V18.0, Z83.3) Status:ActiveFamily history of hypertension: Mother, Father(V17.49, Z82.49) Status:ActiveFamily history of type 2 diabetes mellitus: Father(V18.0, Z83.3) Status:ActiveFamily history of hyperlipidemia: Father, Sibling(V18.19, Z83.438) Status:Active Unknown Family Member Name Dates Details Family history of diabetes m ellitus: Maternal Grandmother(V18.0, Z83.3) Status:ActiveFamily history of cardiac disorder: Maternal Grandmother(V17.49, Z82.49) Status:ActiveFamily history of hypertension: Mother, Father(V17.49, Z82.49) Status:ActiveFamily history of type 2 diabetes mellitus: Father(V18.0, Z83.3) Status:ActiveFamily history of hyperlipidemia: Father, Sibling(V18.19, Z83.438) Status:Active Relationship Condition Age at Onset Recorded Date/T rafael father Diabetes mellitus Unknown Heart diseaseUnknownNot SpecifiedHeart diseaseUnknownSarcomaUnknown Relationship Condition Age at Onset Recorded Date/T rafael father Diabetes mellitus Unknown Heart diseaseUnknownNot SpecifiedHeart diseaseUnknownSarcomaUnknownfatherHeart diseaseUnknownHypertensionUnknownDiabetes mellitusUnknownNot Specified HypertensionUnknown Relationship Condition Age at Onset Recorded Date/T rafael father Diabetes mellitus Unknown Heart diseaseUnknownmotherHeart diseaseUnknownSarcomaUnknownfatherHeart disease UnknownHypertensionUnknownDiabetes mellitusUnknownmotherHypertensionUnknown Advance Directives Advance Directive Response Recorded Date/ Time Advance Directives No September 18, 2021 8:30am Advance Directive Response Recorded Date/ Time Advance Directives No September 18, 2021 7:30am Date ActivatedDate InactivatedComments11/28/2022 9:55 AM11/28/2022 10:32 PMCode StatusDate ActivatedDate InactivatedCommentsFull Code11/28/2022 9:55 AM11/28/2022 10:32 PMCode StatusDate ActivatedDate InactivatedCommentsFull Code11/28/2022 9:55 AM11/28/2022 10:32 PMDate ActivatedDate InactivatedComments11/28/2022 9:55 AM 11/28/2022 10:32 PM Chief Complaint [...] - Pain in right hip M47.817 - SpondylosisReason for VisitSinusitis Sore throat Arthritis of lumbosacral spine Chronic pain Right hip pain Chief Complaint Admit Date Unknown May 28, 2024 12:02pm Unknown July 17, 2024 8:43am Chief Complaint Admit Date RECHECK BACK PAIN May 20, 2025 9:33am Reason for Visit Admit Date Arthritis of lumbosacral spine May 20, 2025 9:33am Chronic pain May 20, 2025 9:33am Right hip pain May 20, 2025 9:33am Chief Complaint Admit Date RECHECK BACK PAIN May 20, 2025 9:33am Earache, sore throat 1of4 June 28, 2025 2:40pm MARY LUMBAR FACET RFA L3 L4 L5 /VW Octo 2024 3:10pm Reason for Visit Admit Date Arthritis of lumbosacral spine May 20, 2025 9:33am Chronic pain May 20, 2025 9:33am Right hip pain May 20, 2025 9:33am Sinusitis, acute, maxillary June 2:40pm Reason for Referral SpecialtyDiagnoses / ProceduresReferred By ContactReferred To ContactREHAB AND SPORTS THERAPY INS Diagnoses Right elbow pain Lateral epicondylitis of right elbow Procedures CONSULT TO MOLDER OFFBEARER OCCUPATIONAL THERAPY EVAL HIGH COMPLEX [address] [place] [address] [place] [address] [facility] [place] [address] [place] [address] Referral IDStatusReasonStart DateExpiration DateVisits RequestedVisits [id number] Auto-Generated Referral [id number] / ProceduresReferred By ContactReferred To ContactMR IMAGING Diagnoses Lateral epicondylitis of both elbows Left elbow pain Right elbow pain Fibromyalgia Anxiety Sleep apnea, unspecified type Cervicalgia Procedures MRI ELBOW WO IVCON LT MRI ANY JT UPPER EXTREMITY W/[place] [address] [place] [address] Mr Imaging Referral IDStatusReasonStauburn DateExpiration DateVisits RequestedVisits [id number] Review Auto-Generated Referral /[id number] / ProceduresReferred By ContactReferred To ContactMR IMAGING Diagnoses Lateral epicondylitis of both elbows Left elbow pain Right elbow pain Fibromyalgia Anxiety Sleep apnea, unspecified type Cervicalgia Procedures MRI ELBOW WO IVCON RT MRI ANY JT UPPER EXTREMITY W/[place] [address] [place] [address] Mr Imaging Referral IDStatusReasonStart DateExpiration DateVisits RequestedVisits [id number] Review Auto-Generated Referral [id number] / ProceduresReferred By ContactReferred To ContactREHAB AND SPORTS THERAPY INS Diagnoses Lateral epicondylitis of both elbows Left elbow pain Right elbow pain Fibromyalgia Anxiety Sleep apnea, unspecified type Cervicalgia Procedures CONSULT TO PHYSICAL THERAPY PHYSICAL THERAPY EVALUATION HIGH COMPLEX [address] [place] [address] [place] [address] [facility] [place] [address] [place] [address] Referral IDStatusSent[facility] DateExpiration DateVisits RequestedVisits [id number] Review Auto-Generated Referral [id number] / ProceduresReferred By ContactReferred To ContactXR IMAGING Diagnoses Lateral epicondylitis of both elbows Left elbow pain Right elbow pain Fibromyalgia Anxiety Sleep apnea, unspecified type Cervicalgia Procedures XR CERV OTHER 4V AP/LAT/OBL RADEX SPINE CERVICAL 4 [place] [address] [place] [address] X[facility] Referral IDStatusReason[place] DateExpiration DateVisits RequestedVisits [id number] Auto-Generated Referral [id number] / ProceduresReferred By ContactReferred To ContactOrthopedics Diagnoses Lateral epicondylitis of both elbows Procedures CONSULT TO ORTHOPAEDICS OFFICE/OUTPATIENT [facility] 60-74 MINUTES Lester Gomez, [place] [id number] Referral IDStatusReasonStart DateExpiration DateVisits RequestedVisits [id number] PCP Requested Referral Medications Administered Section Medication OrderMAR ActionAction DateDoseRateSite lidocaine (PF) 10 mg/mL (1 %) 2 mL injection (XYLOCAINE) 2 mL, Injection - FOR ORTHO USE ONLY, ONE TIME INJECTION, 1 dose, Starting on Nuris 12/20/22 at 1251, Until Nuris 12/20/22 at 1251 Given12/20/2022 12:51 PM EDT2 mLElbow, RightMedication OrderMAR ActionAction DateDoseRateSite lidocaine 1%-EPINEPHrine 1:100,000 2 mL injection 2 mL, Injection - FOR ORTHO USE ONLY, ONE TIME INJECTION, 1 dose, Starting on Sat05/03/23 at 1016, Until Sat05/03/23 at 1016 Given05/03/2023 10:16 AM EDT2 mL ROPivacaine (PF) 5 mg/mL (0.5 %) 4 mL injection (NAROPIN) 4 mL, Injection - FOR ORTHO USE ONLY, ONE TIME INJECTION, 1 dose, Starting on Sat05/03/23 at 1016, Until Sat05/03/23 at 1016 Given05/03/2023 10:16 AM EDT4 mL Additional Source Comments INFORMATION SOURCE (unrecogn ized section and content) DATE CREATED AUTHOR 03/06/2018 [facility] DATE CREATED AUTHOR AUTHOR'S ORGANIZ ATION 10/26/2021 [employer] DATE CREATED AUTHOR AUTHOR'S ORGANIZ ATION 08/24/2022 [facility] DATE CREATED AUTHOR AUTHOR'S ORGANIZ ATION 11/01/2022 [facility] DATE CREATED AUTHOR AUTHOR'S ORGANIZ ATION 12/06/2022 [facility] DATE CREATED AUTHOR AUTHOR'S ORGANIZ ATION 09/07/2023 [facility] DATE CREATED AUTHOR AUTHOR'S ORGANIZ ATION 07/22/2024 [facility] DATE CREATED AUTHOR AUTHOR'S ORGANIZ ATION 01/30/2025 [facility] DATE CREATED AUTHOR AUTHOR'S ORGANIZ ATION 2025 [facility] DATE CREATED AUTHOR AUTHOR'S ORGANIZ ATION 02/22/2025 [facility] DATE CREATED AUTHOR AUTHOR'S ORGANIZ ATION 05/01/2025 [facility] DATE CREATED AUTHOR AUTHOR'S ORGANIZ ATION 06/30/2025 [facility] REASON FOR VISIT (unrecogniz ed section and content) ReasonCommentsNewReasonCommentsNewSpecialtyDiagnoses / ProceduresReferred By ContactReferred To ContactOrthopedics Diagnoses Lateral epicondylitis of both elbows Procedures CONSULT TO ORTHOPAEDICS OFFICE/OUTPATIENT [facility] 60-74 MINUTES Lester Gomez, DO [facility] [address] [place] [address] Referral IDStatusReasonStart DateExpiration DateVisits RequestedVisits [id number] PCP Requested Referral [id number] MRIReasonCommentsFollow UpReason CommentsAppointmentReasonCommentsEstablished PatientSpecialtyDiagnoses / ProceduresReferred By ContactReferred To ContactORTHOPAEDIC SURGERY Diagnoses Lateral epicondylitis, right elbow Procedures NJX PLTLT PLASMA W/IMG HARVEST/PREPARATION PRP INJECTION [place] [address] [place] [address] [place] [address] [place] [address] Referral IDStatVihumble DateExpiration DateVisits RequestedVisits [id number] Financial Clearance Required - Self Pay Patient Cleared - True Self-Pay required payment collected [id number] PatientReason CommentsOT EVALSpecialtyDiagnoses / ProceduresReferred By ContactReferred To ContactREHAB AND SPORTS THERAPY INS Diagnoses Right elbow pain Lateral epicondylitis of right elbow Procedures CONSULT TO MOLDER OFFBEARER OCCUPATIONAL THERAPY EVAL HIGH COMPLEX [address] [place] [address] [place] [address] [facility] [facility] [place] [address] [place] [address] Referral IDStatusSentara [facility] DateExpiration DateVisits RequestedVisits [id number] Auto-Generated Referral [id number]dg TherapySpecialtyDiagnoses / ProceduresReferred By ContactReferred To [facility] Diagnoses Right elbow pain Lateral epicondylitis of right elbow Procedures CONSULT TO MOLDER OFFBEARER OCCUPATIONAL THERAPY EVAL HIGH COMPLEX 60 [place] [address] [place] [address] [facility] [address] [address] SpecialtyDiagnoses / ProceduresReferred By ContactReferred To ContactOrthopedics / ORTHOPAEDIC SURGERY Diagnoses Lateral epicondylitis, right elbow Pain in right elbow LATERAL EPICONDYLITIS R ELBOW Procedures TENOTOMY ELBOW LATERAL/MEDIAL PERCUTANEOUS US GUIDANCE NEEDLE PLACEMENT IMG S&I TENOTOMY WITH [place]IDE [place] [address] [place] [address] [place] [address] [place] [address] Referral IDStatusVihumble DateExpiration DateVisits RequestedVisits [id number]/1/202312/31/[id number] / Procedures Referred By ContactReferred To ContactMR IMAGING Diagnoses Lateral epicondylitis of both elbows Left elbow pain Right elbow pain Fibromyalgia Anxiety Sleep apnea, unspecified type Cervicalgia Procedures MRI ELBOW WO IVCON RT MRI ANY JT UPPER EXTREMITY W/[place] [address] [place] [address] [place] [address] Referral IDStatusReasonStart DateExpiration DateVisits RequestedVisits [id number] Auto-Generated Referral /[id number] / ProceduresReferred By ContactReferred To ContactMR IMAGING Diagnoses Lateral epicondylitis of both elbows Left elbow pain Right elbow pain Fibromyalgia Anxiety Sleep apnea, unspecified type Cervicalgia Procedures MRI ELBOW WO IVCON LT MRI ANY JT UPPER EXTREMITY [place] [address] [place] [address] [place] [address] Referral IDStatusReasonStart DateExpiration DateVisits RequestedVisits [id number] Auto-Generated Referral /[id number]t ExamReasonCommentsRectal Bleeding Pt presents today for a colonoscopy consult. Pt denies/admits to: denies having a colonoscopy before. Pt admits to abdominal pain. Pt admits to rectal bleeding. Pt admits to changes in bowel movements. Pt denies a family history of colon cancer that they know of. Pt denies any concern today. She states that she did have a gastric bypass in october of 2022 and since then she states has had changes in her stools. She has tried miralax.SpecialtyDiagnoses / ProceduresReferred By ContactReferred To ContactGeneral Surgery Diagnoses Rectal bleeding Procedures [place] OFFICE/OUTPATIENT [facility] Lidia Najera DO [address] [facility] [address] [place] [address] Phone: tel: fax: Lidia Najera, [address] [facility] [address] [place] [address] Phone: tel: fax: Referral IDStatusReasonBledsoe DateExpiration DateVisits RequestedVisits [id number] Specialty Services Required [id number] removalReasonCommentsMenstrual ProblemReasonCommentsPre-op VisitEndometrial BiopsyReasonCommentsNew Patient Panniculectomy ConsultSpecialtyDiagnoses / ProceduresReferred By ContactReferred To ContactPlastic & Reconstructive Surgery Diagnoses History of gastric bypass Abdominal pannus Localized adiposity Nichol Barrett MD [address] [facility] [address] [place] [address] Phone: tel: fax: Esthela Wilson MD [address] [place] [address] Phone: tel: fax: Referral IDStatusReasonStart DateExpiration DateVisits RequestedVisits [id number] Review Specialty Services Required /[id number]-thZdbghlGlwqgvjuGmik-wn3 year RYGB; itchy from loose skinReasonCommentsMed RefillReasonCommentsFollow-up2yr bypass ReasonCommentsConstipationChronic severe constipation, unable to have bowel movements without enemas, has large stools that cause rectal bleeding, would like to discuss meds in detail, severe epigastric pain and RUQ abd pain;pain radiates to chest, left arm, and back, gas build up, unable to belch or pass gas typically, gastric bypass surgery in 2022, uterine tubal removal an ablation, frequent vomiting most mealsRectal BleedingAbdominal PainGasBloatedVomiting SpecialtyDiagnoses / ProceduresReferred By ContactReferred To Contact Gastroenterology Diagnoses 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 History of gastric bypass Stefano Hinton PA [address] [facility] [address] [place] [address] Phone: tel: fax: [facility], [facility] Department of [address] [address] Phone: tel: fax: Referral IDStatusReasonStart DateExpiration DateVisits RequestedVisits [id number] Review Specialty Services Required [id number] CounselingReasonCommentsADHDReason CommentsDiscuss HPV Care Teams (unrecognized sec tion and content) Team Status: Active Member Role Status Dates Vijaya Pinto APRN CONCRETE PUMP OPERATOR HELPER-C Primary Care Provider Active Team Status: Inactive Member Role Status Dates Vijaya Pinto APRN CONCRETE PUMP OPERATOR HELPER-C Primary Care Provider Active Start: November 11, 2023 End: November 10amelLC HowardCAttenkhurram ProviderActiveStart: November 11, 2023 End: November 11, 2023 Team Status: Inactive Member Role Status Dates Vijaya Pinto APRN CONCRETE PUMP OPERATOR HELPER-C Primary Care Provider Active Start: November 14, 2023 End: November 14, 2023Rosy Diaz ProviderActiveStart: November 14, 2023 End: November 14, 2023 Team Status: Inactive Member Role Status Dates Vijaya Pinto APRN CONCRETE PUMP OPERATOR HELPER-C Primary Care Provider Active Ed Rosy Malhotra ProviderActiveTeam MemberRelationshipSpecialtyStart DateEnd Date Abundio Galdamez, DO [address] [place] [address] ReferringOrthopedics05/31/22Team MemberRelationshipSpecialtyStart DateEnd Date Abundio Galdamez, DO [address] [place] [address] ReferringOrthopedics05/31/22Team MemberRelationshipSpecialtyStart DateEnd Date Abundio Galdamez, DO [address] [place] [address] ReferringOrthopedics05/31/22Team MemberRelationshipSpecialtyStart DateEnd Date Abundio Galdamez, DO [address] [place] [address] ReferringOrthopedics9/29/22Team MemberRelationshipSpecialtyStart DateEnd Date Abundio Galdamez, DO [address] [place] [address] ReferringOrthopedics9/29/22Team MemberRelationshipSpecialtyStart DateEnd Date Abundio Galdamez, DO [address] [place] [address] ReferringOrthopedics9/29/22Team MemberRelationshipSpecialtyStart DateEnd Date Abundio Galdamez, DO [address] [place] [address] ReferringOrthopedics9/29/22Team MemberRelationshipSpecialtyStart DateEnd Date Abundio Galdamez, DO [address] [place] [address] ReferringOrthopedics9/29/22Team MemberRelationshipSpecialtyStart DateEnd Date Abundio Galdamez, DO [address] [place] [address] ReferringOrthopedics9/29/22Team MemberRelationshipSpecialtyStart DateEnd Date Abundio Galdamez, DO [address] [place] [address] ReferringOrthopedics9/29/22Team MemberRelationshipSpecialtyStart DateEnd Date Abundio Galdamez, DO [address] [place] [address] ReferringOrthopedics9/29/22Team MemberRelationshipSpecialtyStart DateEnd Date Abundio Galdamez, DO [address] [place] [address] ReferringOrthopedics05/31/22Team MemberRelationshipSpecialtyStart DateEnd Date Abundio Galdamez, [address] [place] [address] ReferringOrthopedics05/31/22Team MemberRelationshipSpecialtyStart DateEnd Date Abundio Galdamez DO [address] [place], [place] [address] ReferringOrthopedics05/31/22Team MemberRelationshipSpecialtyStart DateEnd Date Abundio Galdamez DO [address] [place] [address] ReferringOrthopedics05/31/22Team MemberRelationshipSpecialtyStart DateEnd Date Abundio Galdamez DO [address] [place] [address] ReferringOrthopedics05/31/22 Team Status: Inactive Member Role Status Dates Vijaya Pinto APRN CONCRETE PUMP OPERATOR HELPER-C Primary Care Provider Active Start: May 042023 End: May 284CDemario Dhillon ProviderActiveStart: May 28, 2024 End: May 28, 2024 Team Status: Inactive Member Role Status Dates Vijaya Pinto APRN CONCRETE PUMP OPERATOR HELPER-C Primary Care Provider Active Start: July 172023 End: July 17Demario Dhillon ProviderActiveStart: July 17, 2024 End: July 17, 2024Team MemberRelationshipSpecialtyStart DateEnd Date Nita Oneil MD [address] [place], [place] [address] [id number] PCP - GeneralFamily Vbftdics67/20/24Team MemberRelationshipSpecialtyStart Date End Date Nita Oneil MD [address], [place] [address] PCP - GeneralFamily Seenhpki04/20/24Team MemberRelationshipSpecialtyStart Date End Date Nita Oneil MD [address], [place] [facility] [address] PCP - GeneralFamily Khmqchgo63/20/24Team MemberRelationshipSpecialtyStart Date End Date iNta Oneil MD [address], [place] [address] PCP - GeneralFamily Ovvdcbkl56/20/24Team MemberRelationshipSpecialtyStart Date End Date Rivka Koenig APRN-[facility] [address] [place], [place] [address] PCP - GeneralNurse Practitioner01/16/24Team MemberRelationshipSpecialtyStart Date End Date Vijaya Pinto, SPAR MACHINE OPERATOR HELPER-[facility] [address], [facility] [place] [address] PCP - GeneralFamily Medicine11/03/20Team MemberRelationshipSpecialtyStart DateEnd Date Rivka Koenig APRN-[facility] [address] [place], [place] [address] PCP - GeneralNurse Practitioner01/16/24Team MemberRelationshipSpecialtyStart Date End Date Vijaya Pinto, SPAR MACHINE OPERATOR HELPER-[facility] [address], [facility] [place] [address] PCP - GeneralFamily Medicine11/03/20Team MemberRelationshipSpecialtyStart DateEnd Date Vijaya Pinto, SPAR MACHINE OPERATOR HELPER-[facility] [address], [facility] [place] [address] PCP - GeneralFamily Medicine11/03/20Team MemberRelationshipSpecialtyStart DateEnd Date Rivka Koenig SPAR MACHINE OPERATOR HELPER-[facility] [address] [place] [address], [place] [address] PCP - GeneralNurse Practitioner01/16/24Team MemberRelationshipSpecialtyStart Date End Date Rivka Koenig SPAR MACHINE OPERATOR HELPER-[facility] [address] [place] [address], [place] [phone] PCP - GeneralNurse Practitioner01/16/24Team MemberRelationshipSpecialtyStart Date End Date Rivka Koenig SPAR MACHINE OPERATOR HELPER-[facility] [address] [place] [address], [place] [phone] PCP - GeneralNurse Practitioner01/16/24Team MemberRelationshipSpecialtyStart Date End Date Rivka Koenig SPAR MACHINE OPERATOR HELPER-[facility] [address] [place] [address], [place] [address] PCP - GeneralNurse Practitioner01/16/24Team MemberRelationshipSpecialtyStart Date End Date Rivka Koenig APRN-MUSIC LEADER [address] [place] [phone] PCP - GeneralNurse Practitioner01/16/24Team MemberRelationshipSpecialtyStart Date End Date Rivka Koenig APRN-MUSIC LEADER [address] [place] [phone] PCP - GeneralNurse Practitioner01/16/24Team MemberRelationshipSpecialtyStart Date End Date Rivka Koenig APRN-MUSIC LEADER [address] [place] [phone] PCP - GeneralNurse Practitioner01/16/24Team MemberRelationshipSpecialtyStart Date End Date Nita Oneil MD PCP - GeneralFamily Zftqokni35/20/24Team MemberRelationshipSpecialtyStart Date End Date Rivka Koenig APRN-MUSIC LEADER [address] [place] [phone] PCP - GeneralNurse Practitioner01/16/24Team MemberRelationshipSpecialtyStart Date End Date Nita Oneil MD PCP - GeneralFamily Dmejreqd27/20/24Team MemberRelationshipSpecialtyStart Date End Date Nita Oneil MD PCP - [facility]07/22/24 Team Status: Inactive Member Role Status Dates Vijaya Pinto APRN CONCRETE PUMP OPERATOR HELPER-C Primary Care Provider Active Start: May 032024 End: May 20omas SHYAM Malhotrattending ProviderActiveStart: May 20, 2025 End: May 20, 2025 Team Status: Active Member Role/Relationship Status Dates Vijaya Pinto APRN CONCRETE PUMP OPERATOR HELPER-C Primary Care Provider Active Team Status: Inactive Member Role/Relationship Status Dates Vijaya Pinto APRN CONCRETE PUMP OPERATOR HELPER-C Primary Care Provider Active Start: May 032024 End: May 20omas SHYAM Malhotrattending ProviderActiveStart: May 20, 2025 End: May 20, 2025 Team Status: Inactive Member Role/Relationship Status Dates Vijaya Pinto APRN CONCRETE PUMP OPERATOR HELPER-C Primary Care Provider Active Start: June End: June 28mandFox Morales ProviderActiveStart: June 28, 2025 End: June 28, 2025 Team Status: Active Member Role/Relationship Status Dates Vijaya Pinto APRN CONCRETE PUMP OPERATOR HELPER-C Primary Care Provider Active Start: June Ed Marya MDAttending ProviderActiveStart: June 28, 2025 Team Status: Inactive Member Role/Relationship Status Dates Vijaya Pinto APRN CONCRETE PUMP OPERATOR HELPER-C Primary Care Provider Active Start: June End: June 28omas Marya MDAttending ProviderActiveStart: June 28, 2025 End: June 28, 2025Team MemberRelationshipSpecialtyStart DateEnd Date Nita Oneil MD PCP - [facility]07/22/24 Source Comments (unrecognize d section and content) In the event this informatio n is protected by the Federal Confidentiality of Alcohol and Drug Abuse Patient Records regulations: The Federal rules restrict any use of the information to criminally investigate or prosecute any alcohol or drug abuse patient.[facility] CenterIn the event this information is protected by the Federal Confidentiality of Alcohol and Drug Abuse Patient Records regulations: The Federal rules restrict any use of the information to criminally investigate or prosecute any alcohol or drug abuse patient.[facility] CenterIn the event this information is protected by the Federal Confidentiality of Alcohol and Drug Abuse Patient Records regulations: The Federal rules restrict any use of the information to criminally investigate or prosecute any alcohol or drug abuse patient.[facility] CenterIn the event this information is protected by the Federal Confidentiality of Alcohol and Drug Abuse Patient Records regulations: The Federal rules restrict any use of the information to criminally investigate or prosecute any alcohol or drug abuse patient.[facility] CenterIn the event this information is protected by the Federal Confidentiality of Alcohol and Drug Abuse Patient Records regulations: The Federal rules restrict any use of the information to criminally investigate or prosecute any alcohol or drug abuse patient.[facility] CenterIn the event this information is protected by the Federal Confidentiality of Alcohol and Drug Abuse Patient Records regulations: The Federal rules restrict any use of the information to criminally investigate or prosecute any alcohol or drug abuse patient.[facility] CenterIn the event this information is protected by the Federal Confidentiality of Alcohol and Drug Abuse Patient Records regulations: The Federal rules restrict any use of the information to criminally investigate or prosecute any alcohol or drug abuse patient.[facility] CenterIn the event this information is protected by the Federal Confidentiality of Alcohol and Drug Abuse Patient Records regulations: The Federal rules restrict any use of the information to criminally investigate or prosecute any alcohol or drug abuse patient.[facility] CenterIn the event this information is protected by the Federal Confidentiality of Alcohol and Drug Abuse Patient Records regulations: The Federal rules restrict any use of the information to criminally investigate or prosecute any alcohol or drug abuse patient.[facility] CenterIn the event this information is protected by the Federal Confidentiality of Alcohol and Drug Abuse Patient Records regulations: The Federal rules restrict any use of the information to criminally investigate or prosecute any alcohol or drug abuse patient.[facility] CenterIn the event this information is protected by the Federal Confidentiality of Alcohol and Drug Abuse Patient Records regulations: The Federal rules restrict any use of the information to criminally investigate or prosecute any alcohol or drug abuse patient.[facility] CenterIn the event this information is protected by the Federal Confidentiality of Alcohol and Drug Abuse Patient Records regulations: The Federal rules restrict any use of the information to criminally investigate or prosecute any alcohol or drug abuse patient.[facility] CenterIn the event this information is protected by the Federal Confidentiality of Alcohol and Drug Abuse Patient Records regulations: The Federal rules restrict any use of the information to criminally investigate or prosecute any alcohol or drug abuse patient.[facility] CenterIn the event this information is protected by the Federal Confidentiality of Alcohol and Drug Abuse Patient Records regulations: The Federal rules restrict any use of the information to criminally investigate or prosecute any alcohol or drug abuse patient.[facility] CenterIn the event this information is protected by the Federal Confidentiality of Alcohol and Drug Abuse Patient Records regulations: The Federal rules restrict any use of the information to criminally investigate or prosecute any alcohol or drug abuse patient.[facility] CenterIn the event this information is protected by the Federal Confidentiality of Alcohol and Drug Abuse Patient Records regulations: The Federal rules restrict any use of the information to criminally investigate or prosecute any alcohol or drug abuse patient.[facility] CenterIn the event this information is protected by the Federal Confidentiality of Alcohol and Drug Abuse Patient Records regulations: The Federal rules restrict any use of the information to criminally investigate or prosecute any alcohol or drug abuse patient.[facility] CenterIn the event this information is protected by the Federal Confidentiality of Alcohol and Drug Abuse Patient Records regulations: The Federal rules restrict any use of the information to criminally investigate or prosecute any alcohol or drug abuse patient.[facility] CenterIn the event this information is protected by the Federal Confidentiality of Alcohol and Drug Abuse Patient Records regulations: The Federal rules restrict any use of the information to criminally investigate or prosecute any alcohol or drug abuse patient.[facility] CenterIn the event this information is protected by the Federal Confidentiality of Alcohol and Drug Abuse Patient Records regulations: The Federal rules restrict any use of the information to criminally investigate or prosecute any alcohol or drug abuse patient.[facility] Goals (unrecognized section and content) Goals may [...] BE BASED ON THE PRIMARY CLINICAL RECORDS. [facility]. provides no warranty or guarantee of the accuracy or completeness of information in this document.
[2025-07-14 13:10] LABS: Rapid Plasma Reagin, Quant Non Reactive titer (NonRea<1:1)
== END 2025-07-12 15:49 | disposition home or self-care (01) ==
LOC: LAB 15:52
PROVIDERS: Visit Provider Nurse Practitioner Family
DX: Z20.2 Contact with and (suspected) exposure to infections with a predominantly sexual mode of transmission (principal)
CPT/HCPCS: 36415; 86592; 87340; 87389; 87624; 88175

== ENCOUNTER 2025-07-12 20:19 | Outpatient (REF) | payer OTHER, SELFPAY ==
--- OUTSIDE RECORDS SUMMARY | 2025-07-12 14:20 | XMS_ITS | Encounter Summary ---
Author Organization [facility] Address [address] [place] [address] Care Team Providers Care Manager Talent Management Name Role Phone Nita Oneil MD Primary Care Provider [phone] Reason for Visit * ReasonCommentsWell Women Visit Encounter Details DateTypeDepartmentCare Team (Latest Contact Info)Uezqqfippph61/10/2025 2:20 PM ESTProcedure Visit [facility] [address] [facility] [address] Kirby Heredia DO [address] [facility] [place] [address] Well woman exam with routine gynecological exam; Sexually transmitted disease exposure Social History Tobacco UseTypesPacks/DayYears UsedDateSmoking Tobacco: FormerCigarettes Smokeless Tobacco: NeverAlcohol UseStandard Drinks/WeekCommentsNot Currently0 (1 standard drink = 0.6 oz pure alcohol)Caffeine: 1-2 cups/dayCommentsNoSex and Gender InformationValueDate RecordedSex Assigned at BirthNot on fileLegal OnjOhgvgk61/15/2023 7:10 PM EDTGender IdentityNot on fileSexual OrientationNot on filedocumented as of this encounter Last Filed Vital Signs Vital SignReadingTime TakenCommentsBlood Xmyvomjw174/8207/12/2025 2:36 PM EST Pulse--Temperature--Respiratory Rate--Oxygen Saturation--Inhaled Oxygen Concentration--Ynjshk50.9 kg (140 lb 12.8 oz)07/12/2025 2:36 PM ESTHeight--Body Mass Index23.0707/22/2024 11:37 AM ESTdocumented in this encounter Progress Notes * Liliam Burgos, PRODUCTION DESIGNER - 07/12/2025 2:20 PM EST Reason for Appointment: Patient ID: Michelle Guzman is a 40 y.o. female who presents for Well Women Visit Patient presents today for Annual Exam. MEDICATIONS Current Outpatient Medications Medication Instructions B-D 3CC LUER-PAYAL SYR 25GX1/2 25G X 1-1/2 3 ML misc INJECT 1 SYRG INTO THE APPROPRIATE MUSCLE EVERY 30 (THIRTY) DAYS. bisacodyl (DULCOLAX) 10 mg, Daily RT Calcium Citrate+D3 Petites 200-6.25 MG-MCG tablet 2 tablets, 3 times daily cyanocobalamin (VITAMIN B-12) 1,000 mcg, Once docusate sodium (Colace) 100 MG capsule TAKE ONE CAPSULE BY MOUTH IN THE MORNING AND ONE CAPSULE INTHE EVENING DAILY AT BEDTIME Ferrous Sulfate (IRON PO) 1 tablet, Daily RT lactulose (Enulose) 10 GM/15ML solution oral solution TAKE 15 ML (10 G TOTAL) BY MOUTH IN THE MORNING AND 15 ML (10 G TOTAL) BEFORE BEDTIME. Linzess 290 MCG capsule TAKE 1 CAPSULE (290 MCG TOTAL) BY MOUTH IN THE MORNING. metFORMIN XR (GLUCOPHAGE-XR) 500 mg, Oral, Daily with evening meal, Do not crush, chew, or split. omeprazole (PRILOSEC) 40 mg, Daily RT ondansetron (Zofran) 4 MG tablet Take by mouth polyethylene glycol (PEG) 3350 (MIRALAX) 17 g Vit-Fe Fumarate-FA (M- Plus) 27-1 MG tablet 1 tablet, Every morning Zanaflex 4 mg zinc gluconate 50 mg, Daily ALLERGIES Allergies Allergen Reactions Penicillin G Hives and Swelling Penicillins Hives, Swelling and Unknown Sulfa Antibiotics Hives, Swelling and Unknown Ophthalmic agents Sulfamethoxazole-Trimethoprim Hives and Swelling Sulfur Other Reaction(s): Hives PROBLEMS Active Ambulatory Problems Diagnosis Date Noted Lumbar paraspinal muscle spasm 03/14/2023 Lumbar radiculopathy 03/14/2023 Nexplanon removal 07/28/2024 HPV exposure 04/29/2025 Resolved Ambulatory Problems Diagnosis Date Noted No Resolved Ambulatory Problems Past Medical History: Diagnosis Date Anxiety with depression Back spasm Fibromyalgia Polina's disease Herpes simplex History of degenerative disc disease Hypothyroidism HISTORY PAST MEDICAL HISTORY SOCIAL HISTORY Past Medical History: Diagnosis Date Anxiety with depression Back spasm Fibromyalgia Polina's disease Herpes simplex History of degenerative disc disease Hypothyroidism Social History Tobacco Use Smoking status: Former [...] Procedure Laterality Date ABDOMINAL SURGERY 11/28/2022 ADENOIDECTOMY ENDOMETRIAL ABLATION 07/2024 GASTRIC BYPASS 2022 PAP SMEAR 11/26/2019 negative SALPINGECTOMY 07/2024 TONSILLECTOMY REVIEW OF SYSTEMS Review of Systems: Review of Systems All other systems reviewed and are negative. OBJECTIVE Objective: Physical Exam Constitutional: Appearance: Normal appearance. Genitourinary: Right Adnexa: not tender and no mass present. Left Adnexa: not tender and no mass present. No cervical discharge. Breasts: Breasts are soft. Right: Normal. Left: Normal. HENT: Head: Normocephalic. Nose: Nose normal. Mouth/Throat: Mouth: Mucous membranes are moist. Cardiovascular: Rate and Rhythm: Normal rate. Pulmonary: Effort: Pulmonary effort is normal. Abdominal: General: Bowel sounds are normal. Palpations: Abdomen is soft. Musculoskeletal: General: Normal range of motion. Cervical back: Normal range of motion. Neurological: General: No focal deficit present. Mental Status: She is alert. Skin: General: Skin is warm and dry. Psychiatric: Mood and Affect: Mood normal. Vitals and nursing note reviewed. Exam conducted with a high school combination teacher present. Vitals: Estimated body mass index is 23.07 kg/m?? as calculated from the following: Height as of 07/22/24: 5' 5.5 . Weight as of this encounter: 140 lb 12.8 oz. BP: 120/82 No LMP recorded. Assessment/Plan ICD-10-CM 1. Well woman exam with routine gynecological exam Z01.419 Pap Smear HPV DNA probe, amplified 2. Sexually transmitted disease exposure Z20.2 SURESWAB(R) ADVANCED VAGINITIS PLUS, TMA CHLAMYDIA TRACHOMATIS (GENITO/STI) Neisseria gonorrhea DNA probe, direct HIV-1 and HIV-2 antibodies Hepatitis B surface antigen RPR HEPATITIS C AB W/RFL RNS, PCR W/RFL GENOTYPE,LIPA HEPATITIS C AB W/RFL RNS, PCR W/RFL GENOTYPE,LIPA Annual Exam: Patient presents today for an annual exam. Patient states she is doing well and has no complaints. Pap was obtained without difficulty. Discussed patient HPV questions and follow up with patient. Patient is encouraged to continue with annual pap exams every year. Discussed her bleeding after Ablation. Patient states that this has improved but bleeding still present and her Ablation was July 2024. Patient states going on and off for 2-3 days. Discussed Hysterectomy would be next step with the patient. Patient did have cultures obtained and will order panel for STI. Orders Placed This Encounter Procedures HPV DNA probe, amplified CHLAMYDIA TRACHOMATIS (GENITO/STI) Neisseria gonorrhea DNA probe, direct HIV-1 and HIV-2 antibodies Hepatitis B surface antigen RPR HEPATITIS C AB W/RFL RNS, PCR W/RFL GENOTYPE,LIPA Follow Up: Patient is to return in one year for annual unless needed otherwise. Documented by Liliam Burgos LPN on behalf of: Genia Waldrop NP documented in this encounter Plan of Treatment DateTypeDepartmentCare Team (Latest Contact Info)Casgkolpsss16/17/2025 2:20 PM ESTConsult [facility] [address] [facility] [place] [address] Kirby Heredia DO [address] [place], [place] [id number] 08/01/2026 8:30 AM ESTProcedure Visit [facility] [address] [place] [address] Kirby Heredia, [address] [place] [address] NameTypePriorityAssociated DiagnosesOrder SchedulePap SmearPathology and CytologyRoutine Well [...] Team MemberRelationshipSpecialtyStart DateEnd Date Nita Oneil MD [address] [facility] [place] [address] PCP - GeneralFamily Klzzrxmf93/20/24documented as of this encounter
--- OUTSIDE RECORDS SUMMARY | 2025-07-12 20:27 | XMS_ITS | Encounter Summary ---
Author Organization [facility] Address [address] [place] [address] Care Team Providers Care Associate Director Of Development Name Role Phone Nita Oneil MD Primary Care Provider [phone] Encounter Details DateTypeDepartmentCare Team (Latest Contact Info)Eymbfkckjzw53/08/2024Clinisync Result Encounter [facility] Unsolicited Talia Heredia, DO [address] [facility] [address] Mustafa, [facility] Social History Tobacco UseTypesPacks/DayYears UsedDateSmoking Tobacco: FormerCigarettes Smokeless Tobacco: NeverAlcohol UseStandard Drinks/WeekCommentsNot Currently0 (1 standard drink = 0.6 oz pure alcohol)Caffeine: 1-2 cups/dayCommentsNoSex and Gender InformationValueDate RecordedSex Assigned at BirthNot on fileLegal GfvFbelfo70/15/2023 7:10 PM EDTGender IdentityNot on fileSexual OrientationNot on filedocumented as of this encounter Plan of Treatment DateTypeDepartmentCare Team (Latest Contact Info)Fprfzgyibez29/17/2025 2:20 PM ESTConsult [facility] [address] [facility] [place] [address] Talia Heredia DO [address], [place] [address] 08/01/2026 8:30 AM ESTProcedure Visit [facility] [address] [facility] [address] Talia Heredia, DO [address] [facility] [address] [place] [address] documented as of this encounter Procedures Procedure NamePriorityDate/TimeAssociated DiagnosisCommentsUS PELVIS W/ NUJEGJHJEYZD10/08/2024 6:32 AM EST documented in this encounter Results * US PELVIS W/ TRANSVAGINAL (07/10/2024 6:32 AM EST)Anatomical RegionLaterality ModalityOtherSpecimen (Source)Anatomical Location / LateralityCollection Method / VolumeCollection TimeReceived Time07/10/2024 6:32 AM EST Narrative 07/10/2024 6:35 AM EST [facility] ?[address] ? [place] [address] ? Ultrasound Report ? Signed ? Patient: MICHELLE CARTER ?MR#: [id number] ?? : 1985 ?Acct:[id number] ?? Age/Sex: 39 / F ?ADM Date: 07/09/24 ?? Loc: [facility] ? Attending Dr: Talia Heredia D.O. ? Ordering Physician: Talia Heredia D.O. ?? Date of Service: 07/09/24 ?? Procedure(s): US pelvis w/ transvaginal ?? Accession Number(s): [id number] ? cc: Talia Heredia D.O.; Physician,Non-Staff M.D. ? [facility] ? [address] ? [place] [address] ? Patient Name: ?? MICHELLE CARTER ? MRN: [id number] ? date: 1985 ?Sex: F ?? Assigned Patient Location: [facility] ?? Current Patient Location: ? Accession/Order Number: [id number] ?? Exam Date: 07/09/2024 ??09:32 ?Report Date: [...] 0635 ? DD/ 0632 ? TD/TT: ? Customs Investigator: Procedure Note Radiology, Radiologist, MD - 07/10/2024 [place] [address] Ultrasound Report Signed Patient: MICHELLE CARTER LMR#: [id number] : 1985Acct:[id number] Age/Sex: 39 / FADM Date: 07/09/24 Loc: [facility] Attending Dr: Talia Heredia D.O. Ordering Physician: Talia Heredia D.O. Date of Service: 07/09/24 Procedure(s): US pelvis w/ transvaginal Accession Number(s): [id number] cc: Talia Heredia D.O.; Physician,Non-Staff [place] [id number] Patient Name: MICHELLE CARTER MRN: [id number] date: 1985 Sex: F Assigned Patient Location: [facility] Current Patient Location: Accession/Order Number: [id number] Exam Date: 07/09/2024 09:32 Report Date: 07/10/2024 [...] Barroso M.D. Signed By:07/10/2435 DD/ 1 TD/TT: Customs Investigator: Authorizing ProviderResult TypeResult StatusCorey Giovanna DOCLINISYNC IMAGINGFinal Result documented in this encounter Visit Diagnoses Not on filedocumented in this encounter Care Teams Team MemberRelationshipSpecialtyStart DateEnd Date Nita Oneil MD [address], [place] [address] PCP - GeneralFamily Mgepivwz72/20/24documented as of this encounter
--- OUTSIDE RECORDS SUMMARY | 2025-07-12 20:27 | XMS_ITS | Encounter Summary ---
Author Organization [facility] Address [address] [place] [address] Care Team Providers Care Drill Press Hand Name Role Phone Nita Oneil MD Primary Care Provider [phone] Encounter Details DateTypeDepartmentCare Team (Latest Contact Info)Bcokbcsslxj28/10/2025amboo flowsheet [facility] [address] [facility] [place] [address] Kirby Heredia DO [facility] [address], [place] [address] Social History Tobacco UseTypesPacks/DayYears UsedDateSmoking Tobacco: FormerCigarettes Smokeless Tobacco: NeverAlcohol UseStandard Drinks/WeekCommentsNot Currently0 (1 standard drink = 0.6 oz pure alcohol)Caffeine: 1-2 cups/dayCommentsNoSex and Gender InformationValueDate RecordedSex Assigned at BirthNot on fileLegal TvuEspdri35/15/2023 7:10 PM EDTGender IdentityNot on fileSexual OrientationNot on filedocumented as of this encounter Plan of Treatment DateTypeDepartmentCare Team (Latest Contact Info)Icezmsquygl89/17/2025 2:20 PM ESTConsult [facility] YOU[facility] [address] [place] [address] Kirby Heredia DO [address], [place] [address] 08/01/2026 8:30 AM ESTProcedure Visit [facility] YOUNG [address] [place] [id number] Kirby Heredia DO [address] [facility] [place] [address] documented as of this encounter Visit Diagnoses Not on filedocumented in this encounter Care Teams Team MemberRelationshipSpecialtyStart DateEnd Date Nita Oneil MD [address], [place] [address] PCP - GeneralFamily Zvuzydbh54/20/24documented as of this encounter
--- OUTSIDE RECORDS SUMMARY | 2025-07-12 20:27 | XMS_ITS | CCD ---
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 Name Role Phone None, No PCP Unavailable Unavailable Ed Malhotra Unavailable Abundio Galdamez Unavailable Delia Allen Unavailable DYLAN Pinto Primary Care Provider MD Ed Malhotra Attending Provider [phone] Abundio Galdamez DO A Unavailable Obie Galdamez DOin A Unavailable GENIN, FRANK A Referring Unavailable IN, FRANK [...] Care Provider Kirby Heredia DO Attending Provider Kirby Heredia Admitting Unavailable Kirby Heredia Attending Unavailable Vijaya Pinto Primary Care Unavailable Kirby Heredia Attending Unavailable Vijaya Pinto Primary Care Unavailable Kirby Heredia Admitting Unavailable Ed Malhotra Admitting Unavailable Ed Malhotra Attending Unavailable Vijaya Pinto Primary Care Unavailable Nita Oneil MD Primary Care Provider [phone] Koenig MILK ROUTE DELIVERER-HANDBELL CHOIR DIRECTOR, Rivka Primary Care Provider Millie MILK ROUTE DELIVERER-HANDBELL CHOIR DIRECTOR, Vijaya Kim Primary Care Provi estephanie Koenig MILK ROUTE DELIVERER-HANDBELL CHOIR DIRECTOR, Rivka Primary Care Provider DEYVI WEST Referring Unavailable KOENIG, RIVKA Primary Care Unavailable STEFANO HINTON Referring Unavailable KOENIG, RIVKA Primary Care Unavailable STEFANO HINTON Attending Unavailable VIJAYA PINOT Referring Unavailable KOENIG, RIVKA Primary Care Unavailable [...] Unavailable Nita Oneil MD Primary Care Provider KIRBY HEREDIA Attending Unavailable KIRBY HEREDIA Attending Unavailable KIRBY HEREDIA Attending Unavailable KIRBY HEREDIA Attending Unavailable LIDIA NAJERA Attending Unavailable KIRBY HEREDIA Referring Unavailable MATTHEW ZANE N Attending Unavailable Vijaya Pinto APRN Primary Care Provider Ed Malhotra MD Attending Provider Amy Alfonso APRN Attending Provider Kaamljit May Admitting Unavailable Kamaljit May Attending Unavailable Kamaljit May Referring Unavailable NONE, XXXX Referring Unavailable Amy Durbin Admitting Unavailable Amy Durbin Attending Unavailable Joslyn Gong Attending Unavailable Kirby HEREDIA Referring Unavailable HARDY BARR Attending Unavailable HARDY BARR Attending Unavailable HARDY BARR Referring Unavailable Allergies Allergy ClassificationReported Allergen(s)Allergy TypeDate of OnsetReaction(s) Facility (14 sources)Penicillins; Translations: [Penicillins]Allergy to drug (finding) 73-23-0544Bay[facility] [place] [facility] (14 sources)Sulfonamides (Antibiotic); Translations: [Sulfa Drugs]Allergy to drug (finding)Unknown (qualifier value)[facility] (20 sources)Penicillin G; Translations: [PENICILLIN G]Drug Txqibzc81-71-5433 [facility] (20 sources)Sulfacetamide / SulfurDrug AllergyhiBarn[facility] [employer] Other (7 sources)Sulfacetamide; Translations: [sulfacetamide]Drug Zhixsqc50-97-4614 [facility] (20 sources)Sulfur; Translations: [sulfur]Drug Tsejkod80-00-7033SlfvuXimeyqbxcUniversity [facility] (18 sources)PenicillinsDrug Xclbzmu47-20-1929XitzkNyxvfrdox Clinic Work Phone: (20 sources)Sulfonamides (Antibiotic); Translations: [SULFA (SULFONAMIDE ANTIBIOTICS)]Drug Arlfigi02-91-5029Tlbji, Swelling, UnknownMount [facility]el [facility] System Work Phone: (1 source)diphenhydrAMINEDrug Qtyhkcu61-03-4821Euy [facility] Repository (1 source)PenicillinsDrug allergy (disorder)15-53-3036Ijk [facility] Rep[facility] (1 source)Sulfonamides (Antibiotic)Drug allergy (disorder)56-09-1241Maw [facility] Rep[facility] (20 sources)PenicillinsDrug Yswismt74-70-1561Vygor, Swelling, UnknownNOMS Healthcare (20 sources)Sulfamethoxazole / TrimethoprimDrug Fmqjwvx50-38-7872Tfkyh, Swelling [facility] (4 sources)Penicillin; Translations: [penicillin]Drug AllergyUnknown (qualifier value)[facility] (5 sources)Non-steroidal anti-inflammatory agent; Translations: [NSAIDs]Drug -71-6678Kwelc (qualifier value)[facility] (1 source)PenicillinDrug Apgxcrm33-01-5735RvosmpahxAultman [facility] (1 source)Sulfonamide; Translations: [sulfa drugs]Drug allergyUnknown (qualifier value)[facility] (12 sources)Non-steroidal anti-inflammatory agent; Translations: [NSAIDS (NON- STEROIDAL ANTI-INFLAMMATORY DRUG)]Propensity to adverse reactions to drug 99-85-5584ZraEluwxhUniversity Hospitals St. [facility] (3 sources)NSAIDS (Non-Steroidal Anti-InflammaPropensity to adverse reactions 76-89-3137Wcpikmx ReactionAultman Alliance Community HospitalComment on above:No Oral NSAIDS, Gastric Bypass Medications Current Medications MedicationDrug Class(es)DatesSig (Normalized)Sig (Original)Acetaminophen / Codeine (3 sources)Opioid AgonistStart: 89-09-4692Dypumrt with Codeine #3 300 mg, Oral, as needed for pain, Refill(s) 0 Start Date: 07/20/24 Status: OrderedStart: 05-03-2023 End: 24-23-3266couc 1 tablet by mouth every four hours as neededacetaminophen- codeine (TYLENOL-COD #3) 300-30 mg per tablet Indications: Lateral epicondylitis of right elbow Take 1 tablet by mouth every 4 hours as needed for up to 7 days. 8 tablet 0 05/03/2023 05/10/2023 ActiveStart: 04-20-2023 End: 44-59-5995kelq 1 tablet by mouth every four hours [...] mg oral capsule (7 sources)Norepinephrine Reuptake InhibitorStart: 26-23-2289cpab 1 capsule by mouth in the morningatomoxetine (STRATTERA) 40 mg capsule Indications: ADHD (attention deficit hyperactivity disorder),inattentive type Take 1 capsule (40 mg total) by mouth in the morning. 30 capsule 2 02/19/2025 Activeazithromycin 250 mg oral tablet (2 sources)Macrolide AntimicrobialStart: 94-72-8651K-D 3CC LUER-HUMBERTO SYR 25GX1/2 25G X 1-1/2 3 ML misc (2 sources)Start: 68-89-9356X-D 3CC LUER-HUMBERTO SYR 25GX1/2 25G X 1-1/2 3 ML misc INJECT 1 SYRG INTO THE APPROPRIATE MUSCLE EVERY 30 (THIRTY) DAYS. 04/02/2025 Activebenzoyl peroxide 0.05 mg/mg / clindamycin 0.01 mg/mg topical gel (16 sources)Lincosamide AntibacterialStart: 11-28-2023 End: 64-46-9975fxlvmqrfohm-benzoyl peroxide (BENZACLIN) gel Apply 1 Application topically daily as needed (acne). 25 g 1 01/16/2024 Activebisacodyl 5 mg delayed release oral tablet (19 sources)Stimulant LaxativeStart: 07-22-2024 End: 63-58-9949rleq 1 tablet by mouth oncebisacodyl (Dulcolax) 5 MG EC tablet Indications: Rectal bleeding Take 1 tablet (5 mg) by mouth 1 time for 1 dose Do not crush, chew, or split. Take as detailed on clinic hand out for colonoscopy prep4 tablet 07/22/2024 07/22/2024 ActiveStart: 07-20-2024 End: 12-38-1400oiusmzzzN (DULCOLAX) 10 mg suppository Insert 1 suppository (10 mg total) into the rectum in the morning. 07/20/2024 Activecalcium citrate 950 mg / cholecalciferol 250 unt oral tablet (20 sources)Vitamin DStart: 08-15-2023 End: 50-04-7675detp 2 tablets by mouth three times dailyStart: 04-18-2023 Calcium-Cholecalciferol 200-6.25 MG-MCG tablet Take 2 tablets by mouth in the morning and 2 tabletsat noon and 2 tablets in the evening. 04/18/2023 Active Calcium Citrate+D3 Petites 200-6.25 MG-MCG tablet (2 sources)Start: 34-68-8517phdb 2 tablets by mouth in the morning, then take 2 tablets by mouth in the evening, then take 2 tablets by mouth at bedtimeCalcium Citrate+D3 Petites 200-6.25 MG-MCG tablet Take 2 tablets by mouth in the morning and 2 tablets in the evening and 2 tablets before bedtime. 04/02/2025 Active cholecalciferol 0.025 mg oral tablet (3 sources)Vitamin DStart: 87-40-2644hnuwlhw (as carbonate)-vitamin D 90 mg-25 mcg (1000 intl units) oral tablet See Instructions, Refill(s) 0, daily Start Date: 07/16/24 Status: OrderedCyanocobalamin (Vitamin B-12) 1,000 mcg/mL solution (1 source)Start: 54-26-1324Rupvgkzmygwnqh (Vitamin B-12) 1,000 mcg/mL solution Active MCG IM November 10, 2023 11:00pmdocusate sodium 100 mg oral capsule (20 sources)Start: 83-44-3626Ltmgb: 86-70-5006Edvynpfy Sodium (COLACE PO) Take 100 mg by mouth 09/10/2024 ActiveStart: 05-30-2023 End: 19-99-7018Cgohnykq Sodium 100 mg capsule Active MG PO May 20, 2025 12:00am Complies with drug therapyferrous sulfate (20 sources)Start: 76-13-5866jrxu 1 tablet by mouth in the morningFerrous Sulfate (IRON PO) Take 1 tablet by mouth in the morning. 02/28/2023 Active lactulose 667 mg/ml oral solution (14 sources)Osmotic LaxativeStart: 94-33-9913arzv 10 g by mouth at bedtime lactulose (CHRONULAC) 10 gram/15 mL solution TAKE 15 ML (10 G TOTAL) BY MOUTH IN THE MORNING AND 15ML (10 G TOTAL) BEFORE BEDTIME. 473 mL 1 06/07/2025 Active Start: 89-08-9229Mgimd: 01-22-2025 End: 24-34-2104gfko 10 g by mouth at bedtimelactulose (CHRONULAC) 10 gram/15 mL solution Take 15 mL (10 g total) by mouth in the morning and 15mL (10 g total) before bedtime. 473 mL 1 01/22/2025 06/07/2025 Discontinuedlinaclotide 0.29 mg oral capsule (11 sources)Guanylate Cyclase-C AgonistStart: 64-59-4471Ctodk: 02-16-2025 End: 04-67-8362Vrktqacnfbt (Linzess) 290 mcg capsule Active MCG PO May 20, 2025 12:00am Complies with drugtherapyM-TROY PLUS 27 mg iron- 1 mg tablet (1 source)Start: 80-41-3518tskg 1 tablet by mouth once daily in the morningM- PLUS 27 mg iron- 1 mg tablet Indications: Malnutrition following gastrointestinal surgery ,Postsurgical malabsorption , History of gastric bypass TAKE ONE TABLET BY MOUTH ONCE DAILY IN THE MORNING 90 tablet 1 06/07/2025 Active 24 hr metFORMIN hydrochloride 500 mg extended release oral tablet (8 sources)BiguanideStart: 04-29-2025 End: 21-70-2359xegh 1 tablet by mouth every twenty-four hours at mealtime metFORMIN XR (Glucophage-XR) 500 MG 24 hr tablet Indications: Menorrhagia with irregular cycle Take1 tablet (500 mg) by mouth in the evening. Take with meals Do not crush, chew, or split. 30 tablet 11 04/29/2025 05/29/2025 ActiveStart: 11-07-2021 End: 58-68-3336Cohkuxyvt 500 mg tablet Discontinued 500 MG PO As Directed November 07, 2021 1:00am March 13, 2022 7:22amMilk of Magnesia 8% Susp-Oral (1 source)Start: 69-80-6373pvvr 4.8 g by mouth once daily at bedtime for constipationMilk of Magnesia 8% Susp-Oral 4.8 gm, 60 mL, Oral, Once a day (at bedtime) for constipation, 600 mL, Refill(s) 0 Start Date: 09/10/24 Status: Zqwubfq16 hr mirabegron 25 mg extended release oral tablet (2 sources)beta3-Adrenergic AgonistStart: 07-20-2024 End: 76-86-0855fvgr 1 tablet by mouth once dailymirabegron 25 mg oral tablet, extended release 25 mg = 1 tab(s), Oral, Daily, X 30 day(s), # 30 tab(s), Refills(s) 11, Pharmacy: [facility], 165, cm, 07/20/24 10:51:00 EST, [...] THE MORNING Oral for 60 Days ActivePnv,Calcium 98-Pjww-Bdamq Acid (M- Plus) 27 mg iron- 1 mg tablet (2 sources)Start: 24-52-4678MTR,calcium 79-tnqz-rladb acid ( VITAMIN PLUS LOW IRON) 27 mg iron- 1 mg tablet (14 sources)Start: 01-15-2025 End: 85-39-6912zicj 1 tablet by mouth in the morningPNV,calcium 57-guac-mwxpl acid ( VITAMIN PLUS LOW IRON) 27 mg iron- 1 mg tablet Indications: Malnutrition following gastrointestinal surgery , Postsurgical malabsorption , History of gastric bypass Take 1 tablet by mouth in the morning for 360 days. 90 tablet 1 01/15/2025 06/07/2025 DiscontinuedStart: 01-15-2025 End: 49-84-4842bqak 1 tablet by mouth in the morningPNV,calcium 21-nhme-chays acid ( VITAMIN PLUS LOW IRON) 27 mg iron- 1 mg tablet Indications: Malnutrition following gastrointestinal surgery , Postsurgical malabsorption , History of gastric bypass Take 1 tablet by mouth in the morning for 360 days. 90 tablet 1 01/15/2025 01/10/2026 ActiveStart: 05-13-2024 End: 58-50-5435trif 1 tablet by mouth once daily in the morningPNV,calcium 73-xnpt-iqyoe acid ( VITAMIN PLUS LOW IRON) 27 mg iron- 1 mg tablet Indications: Postsurgical malabsorption , Malnutrition following gastrointestinal surgery , History of gastric bypass take one tablet by mouth once daily in the morning 90 tablet 1 05/13/2024 01/15/2025 Discontinued (Reorder)Start: 18-72-6207nolc 1 tablet by mouth once daily in the morning PNV,calcium 00-dbff-gmjfa acid ( VITAMIN PLUS LOW IRON) 27 mg iron- 1 mg tablet Indications: Postsurgical malabsorption , Malnutrition following gastrointestinal surgery , History of gastric bypass take one tablet by mouth once daily in the morning 90 tablet 1 05/13/2024 Activepolyethylene glycol 3350 77936 mg powder for oral solution (17 sources)Osmotic LaxativeStart: 11-73-2115Ygkzd: 01-15-2025 End: 00-96-7081pstgzzmvqslt glycol (GLYCOLAX) 17 gram/dose powder Indications: Constipation, unspecified constipation type Take 17 g by mouth in the morning for 90 days. 1530 g 01/15/2025 04/15/2025 ActiveStart: 57-42-4691zytm 17 g by mouth in the morningClearLax 17 GM/SCOOP powder TAKE 17 G BY MOUTH IN THE MORNING FOR 90 DAYS. 04/02/2025 ActiveStart: 32-86-1032CrrdZdi 17 gm, Daily, Refill(s) 0 Start Date: 09/10/24 Status: OrderedStart: 07-22-2024 End: 34-16-0253oomk 17 g by mouth oncepolyethylene glycol, PEG, [...] 65-1 mg tablet (5 sources)Start: 02-28-2023 End: 09-89-4338yxqg 1 tablet by mouth in the morningprenatal vit 10-iron fum- folic 65-1 mg tablet Indications: Postsurgical malabsorption , Malnutrition following gastrointestinal surgery , History of gastric bypass Take 1 tablet by mouth in the morning. 90 tablet 3 02/28/2023 05/13/2024 DiscontinuedStart: 36-47-7694hvln 1 tablet by mouth in the morningprenatal vit 10-iron fum-folic 65-1 mg tablet Indications: Postsurgical malabsorption , Malnutrition following gastrointestinal surgery , History of gastric bypass Take 1 tablet by mouth in the morning. 90 tablet 3 02/28/2023 ActivePrenatal Vit-Fe Fumarate-FA (M- Plus) 27-1 MG tablet (2 sources)Start: 95-27-7941rluq 1 tablet by mouth in the morningPrenatal [...] 25 x 1 1/2 syringe (19 sources)Start: 47-71-4957rktaccp with needle (BD LUER-HUMBERTO SYRINGE) 3 mL 25 x 1 1/2 syringe Indications: Malnutrition following gastrointestinal surgery , Postsurgical malabsorption , History of gastric bypass Inject 1 SYRGinto the appropriate muscle every 30 (thirty) days. 3 each 3 01/15/2025 ActiveStart: 07-14-2024 End: 41-58-7533kumxzui with needle (BD LUER-HUMBERTO SYRINGE) 3 mL 25 x 1 1/2 syringe Indications: Malnutrition following gastrointestinal surgery , History of gastric bypass , Postsurgical malabsorption , Vitamin K69pjxrtrygux USE TO INJECT CYANOBALAMIN ONCE EVERY MONTH 3 each 1 07/14/2024 01/15/2025 Discontinued (Reorder)Start: 82-97-1132samuuen with needle (BD LUER-HUMBERTO SYRINGE) 3 mL 25 x 1 1/2 syringe Indications: Malnutrition following gastrointestinal surgery , History of gastric bypass , Postsurgical malabsorption , Vitamin Q09cuofwjnfnq USE TO INJECT CYANOBALAMIN ONCE EVERY MONTH 3 each 1 07/14/2024 ActiveStart: 05-30-2023 End: 40-33-7610rcsnrps with needle (BD LUER-HUMBERTO SYRINGE) 3 mL 25 x 1 1/2 syringe Indications: Malnutrition following gastrointestinal surgery , History of gastric bypass , Postsurgical malabsorption , Vitamin C46rxgytcoxlv 1 SYRG by miscellaneous route every 30 (thirty) days. 3 each 1 05/30/2023 07/14/2024 Disc ontinuedStart: 51-46-3819pixzmzi with needle (BD LUER-HUMBERTO SYRINGE) 3 mL 25 x 1 1/2 syringe Indications: Malnutrition following gastrointestinal surgery , History of gastric bypass , Postsurgical malabsorption , Vitamin R04lkkbskexyt 1 SYRG by miscellaneous route every 30 (thirty) days. 3 each 1 05/30/2023 Active Syringe With Needle (Bd Luer-Humberto Syringe) 3 mL 25 x 1 1/2 syringe (2 sources)Start: 44-29-9399Mlzvmpv With Needle (Bd Luer-Humberto Syringe) 3 mL 25 x 1 1/2 syringe Active ML .ROUTE .MEDSUPPLY 100October 2024 12:00am As directedvibegron 75 MG Oral Tablet (2 sources)Start: 07-20-2024 End: 06-07-3709glsv 1 tablet by mouth once dailyvibegron 75 mg oral tablet 75 mg = 1 tab(s), Oral, Daily, X 30 day(s), # 30 tab(s), Refills(s) 11, Pharmacy: [facility], 165, cm, 07/20/24 10:51:00 EST, Height/Length Dosing, 69, kg, 07/20/24 10:51:00 EST, Weight Dosing Start Date: 07/20/24 Stop Date: 07/15/25 Status: OrderedVitafusion (3 sources)Start: 34-89-6098Tlguichizi 2 tab(s), Chewed, Daily, Refill(s) 0 Start Date: 07/16/24 Status: OrderedVitamin B Complex 100 injectable solution (3 sources)Start: 90-90-1860Cbllgoy B Complex 100 injectable solution See Instructions, Refill(s) 0, monthly injection Start Date: 07/16/24 Status: OrderedStart: 63-55-9480Sefwblj B Complex 100 injectable solution See Instructions, Refill(s) 0 Start Date: 07/16/24 Status: Orderedvitamin b12 1 mg/ml injectable solution (20 sources)Vitamin I94Rykui: 39-45-8695Facbqrditewwip (Vitamin B-12) Active MCG IM November 11, 2023 12:00amStart: 05-30-2023 End: 90-48-5096qpfybuixqcgsjq (Vitamin B-12) 1000 MCG/ML injection Inject 1,000 mcg into the shoulder, thigh, or buttocks 1 (one) time. ActiveCyanocobalamin 1000 MCG/ML INJECT 1 ML (1,000 MCG TOTAL) INTO THE APPROPRIATE MUSCLE EVERY 30 (THIRTY) DAYS. Injection for 30 Days ActiveZinc (3 sources)Start: 21-47-1903Xgla See Instructions, daily, Refills(s) 0 Start Date: 07/16/24 Status: OrderedStart: 77-60-2513Xzfv See Instructions, Refills(s) 0 Start Date: 07/16/24 Status: Orderedzinc gluconate 50 mg oral tablet (20 sources)Start: 11-28-2023 End: 01-15-2025 Completed/Discontinued Medications MedicationDrug Class(es)DatesSig (Normalized)Sig (Original)8 hr acetaminophen 650 mg extended release oral tablet (5 sources)Start: 11-14-2023 End: 29-73-2881Udfwhhwgqbtkg 650 mg tablet extended release Discontinued MG PO November 14, 2023 12:00am May 20, 2025 9:37amStart: 11-14-2023 Acetaminophen Active MG PO November 14, 2023 12:53tsbib576594 200 actuat albuterol 0.09 mg/actuat metered dose inhaler (20 sources)beta2-Adrenergic AgonistStart: 88-44-8297gwww 2 puff(s) by inhalation every four hours as neededAlbuterol Sulfate HFA 108 (90 Base) MCG/ACT 2 puffs as needed Inhalation every 4 hrs Aug, Not-TakingStart: 35-96-2902vofz 2 puff(s) by inhalation every four hours as neededAlbuterol Sulfate HFA 108 (90 Base) MCG/ACT 2 puffs as needed Inhalation every 4 hrs Aug, Not-Takingamitriptyline hydrochloride 25 mg oral tablet (20 sources)Tricyclic AntidepressantStart: 09-12-2022 End: 90-03-8358ojvpjvtelsxpw (ELAVIL) 25 mg tablet TAKE 1/2 TO 1 TABLET BY MOUTH ONCE DAILY AT BEDTIME 30 30 tablet 2 09/12/2022 01/15/2025 Discontinued (Therapy completed)atenolol 25 mg oral tablet (20 sources)beta-Adrenergic BlockerStart: 11-07-2021 End: 32-51-3550cbua 1 tablet by mouth once dailyAtenolol 25 mg tablet Discontinued 25 MG PO Daily November 07, 2021 1:00am November 11, 2023 11:30am Start: 55-68-4662Wkjnfksg 25 MG Oral Tablet Quantity: 0 Refills: 0 Ordered: 04-Oct-2021 DO Start : 04-Oct-2021 ActiveComment on above:Take 25 mg by mouth once daily.12 hr buPROPion hydrochloride 150 mg extended release oral tablet (16 sources)AminoketoneStart: 11-07-2021 End: 89-17-7355cmpf 1 tablet by mouth once dailyBupropion Hcl 150 mg tablet sustained-release 12 hr Discontinued 150 MG PO Daily November 07, 2021 1:00am November 07, 2021 10:33amStart: 23-16-9222czps 1 tablet by mouth once daily Wellbutrin XL 150 MG Oral Tablet Extended Release 24 Hour TAKE 1 TABLET DAILY DIRECTED. Quantity: 0 Refills: 0 Ordered: 20-Apr-2021 DO Start : 20-Apr-2021 Activecitalopram 40 mg oral tablet (20 sources)Serotonin Reuptake InhibitorStart: 11-07-2021 End: 05-03-7021yrjz 1 tablet by mouth once dailyCitalopram 40 mg tablet Discontinued 40 MG PO Daily November 07, 2021 1:00am November 11, 2023 11:30am Start: 56-47-7568WtozGU 40 MG Oral Tablet Quantity: 0 Refills: 0 Ordered: 20-Apr-2021 DO Start : 20-Apr-2021 ActiveComment on above:Take 40 mg by mouth once daily.cyclobenzaprine hydrochloride 10 mg oral tablet (20 sources)Muscle RelaxantStart: 46-49-2320fvey 1 tablet by mouth three times daily as neededCyclobenzaprine HCl - 10 MG Oral Tablet TAKE 1 TABLET 3 TIMES DAILY NEEDED. Quantity: 0 Refills:0 Ordered: 20-Apr-2021 DO Start : 20-Apr-2021 Activetake 1 tablet by mouth every twenty-four hoursCyclobenzaprine HCl 10 MG 1 tablet at bedtime as needed Orally Once a day Not-Takingdiclofenac sodium 0.01 mg/mg topical gel (9 sources)Nonsteroidal Anti-inflammatory DrugStart: 13-71-8127Zexoraflxm Sodium 1 % apply 1 gram to bilateral elbows Externally 2-4 times a day for 30 days May, Not-Takingdoxycycline hyclate 100 mg oral capsule (5 sources)Tetracycline-class DrugStart: 11-11-2023 End: 03-01-6677mpcu 1 capsule by mouth twice dailyDoxycycline Hyclate 100 mg capsule Discontinued 100 MG PO Twice daily 20 10 0 November 11, 2023 12:00am November 14, 2023 9:16amEPINEPHrine 0.01 mg/ml / lidocaine hydrochloride 10 mg/ml injectable solution (1 source)Antiarrhythmic, alpha-Adrenergic Agonist, beta-Adrenergic Agonist, Catecholamine, Amide Local AnestheticStart: 05-03-2023 End: 75-19-2209xfmzcabsy 1%-EPINEPHrine 1:100,000 2 mL injectionetonogestrel 68 mg drug implant (18 sources)Progestin End: 36-84-2463btoevhefbfkR (NEXPLANON) 68 mg implant 1 each (68 mg total) by subdermal route once. 01/15/2025 Discontinued (Therapy completed) End: 92-39-3196cqqlvmtmhgdy-eluting (Nexplanon) 68 mg contraceptive implant Inject 68 mg under the skin 4Discontinued (Therapy completed)famotidine 20 mg oral tablet (11 sources)Histamine-2 Receptor AntagonistStart: 83-33-0380nosb 1 tablet by mouth twice dailyPepcid 20 MG Oral Tablet TAKE 1 TABLET TWICE DAILY. Quantity: 0 Refills: 0 Ordered: 20-Apr-2021 DO Start : 20-Apr-2021 Activefluticasone propionate 0.05 mg/actuat metered dose nasal spray (5 sources)CorticosteroidStart: 11-11-2023 End: 86-75-8616gfnz 1 spray(s) nasal route once dailyFluticasone Propionate 50 mcg/actuation spray,suspension Discontinued 2 SPRAY INTRANASAL Daily 16 0Mar2023 12:00am May 20, 2025 9:37am administer into each cviqyfk94 ml lidocaine hydrochloride 10 mg/ml injection (1 source)Antiarrhythmic, Amide Local AnestheticStart: 12-20-2022 End: 20-58-9737bbclmjwvk (PF) 10 mg/mL (1 %) 2 mL injection (XYLOCAINE)Start: 12-20-2022 End: 57-03-1103oojklpqcw (PF) 10 mg/mL (1 %) 2 mL injection (XYLOCAINE) methylPREDNISolone 4 mg oral tablet (20 sources)CorticosteroidStart: 11-11-2023 End: 06-93-7937tzno 1 tablet by mouth onceMethylprednisolone (Medrol (Michael)) 4 mg tablets,dose pack Discontinued 0 PO per package directions November 11, 2023 12:00am November 14, 2023 9:16am PO PER PKG DIR for 6 daysStart: 02-14-2023 methylPREDNISolone (MEDROL DOSE-PACK) 4 mg Dose-Pack As Instructed per package 1 tablet 0 02/14/2023 ActiveStart: 74-58-6171Zskewb 4 MG as directed Orally for 6 days Mar, Not-TakingComment on above:As Instructed per packageNaltrexone (9 sources)Opioid AntagonistStart: 10-12-2022 End: 15-87-3483phiz 4.5 mg by mouth once dailynaltrexone HCl (NALTREXONE ORAL) Take 4.5 mg by mouth nightly. Back pain 10/12/2022 01/15/2025 Discontinued (Therapy completed)Start: 74-30-8039jggy 4.5 mg by mouth once dailynaltrexone HCl (NALTREXONE ORAL) Take 4.5 mg by mouth nightly. Back pain 10/12/2022 Active Start: 40-13-3506yukv 4.5 mg by mouth once dailynaltrexone HCl (NALTREXONE ORAL) Take 4.5 mg by mouth nightly. Back pain 0 10/12/2022 Activenaproxen 375 mg oral tablet (20 sources)Nonsteroidal Anti-inflammatory DrugStart: 09-11-2021 End: 46-53-2581Zxpxxtct 375 mg tablet Discontinued 375 MG PO As Directed November 07, 2021 1:00am November 11, 2023 11:30amomeprazole 20 mg delayed release oral capsule (20 sources)Proton Pump InhibitorStart: 11-07-2021 End: 77-84-0408Uyhvfnxygy 20 mg capsule,delayed release(DR/EC) Discontinued 20 MG PO As Directed November 07, 2021 1:00am November 11, 2023 11:30amStart: 32-91-6766lisv 1 tablet by mouth twice dailyCVS Omeprazole 20 MG Oral Tablet Delayed Release Take 1 tablet twice daily Quantity: 0 Refills: 0 Ordered: 20-Apr-2021 DO Start : 20-Apr-2021 ActiveStart: 99-97-6711zhuk 1 capsule by mouth once daily before breakfastomeprazole (PriLOSEC) 40 mg capsule Take 1 capsule (40 mg total) by mouth every morning before breakfast. 07/20/2024 Active omeprazole (PriLOSEC) [address] capsule every 12 (twelve) hours ActiveComment on above:Take 40 mg by mouth once daily.pregabalin 50 mg oral capsule (20 sources)Start: 62-37-2689Iovvfgijvp Active MG PO November 14, 2023 12:00am Start: 08-29-2023 End: 02-97-7666Avomxwkpqw 50 mg capsule Discontinued MG PO November 14, 2023 12:00am May 20, 2025 9:37amStart: 00-90-8490fkxw 1 capsule by mouth every twelve hoursLyrica 200 MG 1 capsule Orally Twice a day for 30 days Jan, ActiveStart: 53-84-7704zqgu 1 capsule by mouth every twelve hoursLyrica 200 MG 1 capsule Orally Twice a day for 30 days December, ActiveStart: 09-12-2022 End: 35-39-5195dujf 2 capsules by mouth in the morning, then take 2 capsules by mouth at bedtimepregabalin (LYRICA) 100 mg capsule Indications: fibromyalgia Take 2 capsules (200 mg total) by mouth in the morning and 2 capsules (200 mg total) before bedtime. Indications: disorder characterized by stiff, tender & painful muscles. 0 09/12/2022 08/29/2023 Discontinued (Dose adjustment)Start: 03-27-2022 End: 00-26-5750sswj 1 capsule by mouth twice dailyPregabalin 75 [...] above:Take 100 mg by mouth twice daily. Kijchoyg-Gll-Hc-Fa () 1 mg Tablet (6 sources)Start: 04-17-2022 End: 30-26-1060zhtc 1 tablet by mouth once dailyPrenatal Xedaxtuy-Anw-Mt-Fa () 1 mg Tablet Discontinued 1 TAB PO Daily April 17, 2022 12:00am June 28, 2025 2:42pmStart: 50-52-0045oboi 1 tablet by mouth once daily Qndraulh-Ltk-Cd-Fa () 1 mg Tablet Active 1 TAB PO Daily April 17, 2022 12:00am Complies with drug therapyStart: 48-54-5423sgsq 1 tablet by mouth once dailyPrenatal Kkbqjrpe-Vpn-Cn-Fa () 1 mg Tablet Active 1 TAB PO Daily April 16, 2022 11:00pmStart: 85-84-0993ryck 1 tablet by mouth once dailyPrenatal Kwzvoron-Usk-Vr-Fa () 1 mg Tablet Active 1 TAB PO Daily April 17, 2022 12:00am20 ml ropivacaine hydrochloride 5 mg/ml injection (1 source)Amide Local AnestheticStart: 05-03-2023 End: 50-85-9359HQMdtwlbzcs (PF) 5 mg/mL (0.5 %) 4 mL injection (NAROPIN)0.25 mg, 0.5 mg dose 1.5 ml semaglutide 1.34 mg/ml pen injector (8 sources)Start: 11-07-2021 End: 47-05-1346Mnuivbodniy (Ozempic) 0.25 mg or 0.5 mg(2 mg/1.5 mL) pen injector Discontinued 0.25 MG SUBCUT As Directed November 07, 2021 1:00am March 13, 2022 7:22amStart: 68-15-8234Rkrwlzr (0.25 or 0.5 MG/DOSE) 2 MG/1.5ML Subcutaneous Solution Pen-injector Quantity: 0 Refills: 0 Ordered: 04-Oct-2021 DO Start : 04-Oct-2021 ActivetiZANidine 4 mg oral tablet (20 sources)Central alpha-2 Adrenergic AgonistStart: 11-11-2023 End: 79-92-6463Ujqdwvuvzq Discontinued MG PO November 11, 2023 12:00am November 14, 2023 10:25amStart: 02-21-2023 End: 93-45-1345aakk 1 tablet by mouth twice daily as neededTizanidine 4 mg tablet Discontinued 4 MG PO Twice daily as needed for muscle spasticity 60 30 2 November 14, 2023 10:24am May 20, 2025 9:38amStart: 02-21-2023 End: 37-07-3363wokn 1 tablet by mouth every eight hoursZanaflex 4 mg Tab 4 mg = 1 tab(s), Oral, q8hr, Refills(s) 0 Start Date: 07/16/24 Status: OrderedStart: 62-20-6736goREHrteap (ZANAFLEX) 4 mg tablet TAKE 12 TO 1 TABLET BY MOUTH ONCE DAILY AT BEDTIME 30 02/21/2023 Activetopiramate 100 mg oral tablet (20 sources)Start: 03-04-2023 End: 70-80-2407bbwq 1 tablet by mouth once dailytopiramate (TOPAMAX) 100 mg tablet Indications: Migraine without aura and without status migrainosus, not intractable Take 1 tablet (100 mg total) by mouth nightly. 90 tablet 2 03/04/2023 01/15/2025 Discontinued (Therapy completed)Start: 11-07-2021 End: 43-16-9956Dhogjxzqlr 100 mg tablet Discontinued 50 MG PO As Directed November 07, 2021 1:00am November 11, 2023 11:32amStart: 11-07-2021 End: 24-07-1392Ukywnklsic Discontinued 50 MG PO As Directed November 07, 2021 1:00am November 11, 2023 11:32amStart: 68-27-7848eoos 1 tablet by mouth once dailyTopamax 50 MG Oral Tablet TAKE 1 TABLET DAILY. Quantity: 0 Refills: 0 Ordered: 20-Apr-2021 DO Start: 20-Apr-2021 ActiveStart: 59-63-7893Dxwkkjj 100 MG Oral Tablet Quantity: 0 Refills: 0 Ordered: 20-Apr-2021 DO Start : 20-Apr-2021 Activetriamcinolone acetonide 40 mg/ml injectable suspension (20 sources)CorticosteroidStart: 46-92-4629Hyohcez-40 Mar, 40 mgStart: 93-04-5781Lqxxnds -40 mg Sep, 40 mgStart: 09-10-5607Scmffgr -40 mg Mar, 40 mgubrogepant 50 mg oral tablet (6 sources)Start: 11-07-2021 End: 51-32-9124Juxgtthhxy (Ubrelvy) 50 mg tablet Discontinued 50 MG PO As Directed as needed for Migraine HeadacheNovember 07, 2021 1:00am November 11, 2023 11:32am Problems Active Problems Problem ClassificationProblemDateDocumented DateEpisodic/ChronicAbdominal pain (7 sources)Pain in female pelvis; Translations: [Pelvic and perineal pain]Onset: 534883-75-2237OqkakehgXixlym (13 sources)Exercise-induced asthma; Translations: [Exercise induced bronchospasm]25-93-4733YnnzjuyWmbbqdzsm-deficit, conduct, and disruptive behavior disorders (1 source)Attention deficit hyperactivity disorder, predominantly inattentive type; Translations: [Attention-deficit hyperactivity disorder, predominantly inattentive type]32-06-0184DyjhsmsQtnkgovnq-deficit, conduct, and disruptive behavior disorders (1 source)Attention-deficit hyperactivity disorder, predominantly inattentive type; Translations: [Attention-deficit hyperactivity disorder, predominantly inattentive type]Onset: 99-17-4143NbmtpzpUtsvmyyoy-deficit, conduct, and disruptive behavior disorders (1 source)Attention deficit hyperactivity disorderOnset: 08-45-9546Qcgtrdz Complications of surgical procedures or medical care (20 sources)Post-gastrointestinal tract surgery malnutrition; Translations: [Postsurgical malabsorption, not elsewhere classified]Onset: 02-28-2023 Resolved: 735102-89-7036KkovxleTafytbdw mellitus without complication (11 sources)Prediabetes; Translations: [Other abnormal glucose]Episodic Gastrointestinal hemorrhage (3 sources)Rectal hemorrhage; Translations: [Hemorrhage of anus and rectum] Onset: 259925-27-5418SpjudhylNdtahbhaogqnd symptoms and ill-defined conditions (1 source)Stress incontinence (female) (male); Translations: [Stress incontinence (female) (male)]Onset: 99-17-6681SxvdvprEhzfmccnbxrbf symptoms and ill-defined conditions (4 sources)Microscopic hematuria; Translations: [Increased frequency of urination]68-43-8478WqiwzgtmFuofsqlq; including migraine (20 sources)Migraine; Translations: [Migraine, unspecified, without mention of intractable migraine without mention of status migrainosus]Onset: 11-03-2020 45-85-8300TxettqsQngyz valve disorders (2 sources)Heart -54-3649MpwnwsruZziwuchbeqo (2 sources)Internal hemorrhoids; Translations: [Other hemorrhoids]07-22-2024 EpisodicHypertension complicating ; childbirth and the puerperium (17 sources)Chronic hypertension complicating AND/OR reason for care during ; Translations: [Unspecified pre-existing hypertension complicating , unspecified trimester]Onset: 08-11-2018 Resolved: 088780-48-4514IrmyorkNbtwcsdsnqzzu and screening for infectious disease (5 sources)Exposure to sexually transmissible disorder; Translations: [Contact with and (suspected) exposure to infections with a predominantly sexual mode of transmission]Onset: 604473-84-8715SfvbvcixHdkwvrrze disorders (16 sources)Menorrhagia; Translations: [Excessive or frequent menstruation] 49-54-9357SyukuhjMfomyl and vomiting (1 source)VomitingOnset: 63-08-1123HtbsmoepIbscr connective tissue disease (11 sources)Tendinitis; Translations: [Enthesopathy of unspecified site]Episodic Other connective tissue disease (18 sources)Fibromyalgia; Translations: [Myalgia and myositis, unspecified] EpisodicOther connective tissue disease (11 sources)Disease suspected; Translations: [Other symptoms involving nervous and musculoskeletal systems]EpisodicOther connective tissue disease (7 sources)Lateral epicondylitis of bilateral humerus; Translations: [Lateral epicondylitis, right elbow]EpisodicOther connective tissue disease (3 sources)H/O: zqqlfovcpcreik63-84-1697NlmavykeAvahy connective tissue disease (1 source)Panniculitis; Translations: [Panniculitis, unspecified]08-20-2024 EpisodicOther diseases of bladder and urethra (2 sources)Overactive hhugryp53-76-7448NqewwfwRcwwh female genital disorders (1 source)Abnormal uterine bleeding; Translations: [Abnormal uterine and vaginal bleeding, unspecified]72-98-9833SkmnaqzOcdqv gastrointestinal disorders (1 source)Irritable bowel syndrome characterized by constipation; Translations: [Irritable bowel syndrome with constipation]17-71-2876DppdmtxAeuoo gastrointestinal disorders (20 sources)History of bypass of stomach; Translations: [Bariatric surgery status]Onset: 470771-06-5575CgrxfmzmTjkjm gastrointestinal disorders (3 sources)Altered bowel function; Translations: [Change in bowel habit] 58-35-4794OuszuaqfNutal gastrointestinal disorders (1 source)Change in bowel habit; Translations: [Change in bowel habit]Onset: 43-60-1624NwiwqpsoUcytd lower respiratory disease (11 sources)Snoring; Translations: [Other respiratory abnormalities]Episodic Other nervous system disorders (20 sources)Chronic pain; Translations: [Other chronic pain]20-18-2792Tfhtsdy Other nervous system disorders (12 sources)Other chronic pain; Translations: [Other chronic pain]Onset: 09-14-2021 Resolved: 91-21-9571WdpvpvjZttgd non-traumatic joint disorders (20 sources)Hip pain; Translations: [Pain in unspecified hip]07-64-7654Dsjnfhvl Other non-traumatic joint disorders (20 sources)Pain in [...] obesity due to excess caloriesOnset: 03-19-2022 Resolved: 19-62-9515CspvylySmema nutritional; endocrine; and metabolic disorders (1 source)Excess panniculus of abdomen; Translations: [Localized adiposity] 40-69-4198PiftclqLzxbf nutritional; endocrine; and metabolic disorders (1 source)Localized adiposity; Translations: [Localized adiposity]11-28-2023 ChronicOther nutritional; endocrine; and metabolic disorders (10 sources)Iron overload; Translations: [Other disorders of iron metabolism] Onset: 697578-21-2603WrsmchoBkghr nutritional; endocrine; and metabolic disorders (1 source)Other disorders of iron metabolism; Translations: [Other disorders of iron metabolism]Onset: 16-70-8235ClpgnjnQrbgh upper respiratory infections (1 source)Chronic sinusitis, unspecified; Translations: [Unspecified sinusitis (chronic)]98-45-0244IjitaziGbcmd upper respiratory infections (20 sources)Acute pharyngitis, unspecified; Translations: [Acute pharyngitis] Onset: 07-04-2021 Resolved: 640914-57-5541JgzweiykPcbmdohl codes; unclassified (20 sources)Sleep apnea; Translations: [Sleep apnea, unspecified]Onset: 01-94-3976FaktamcPpuuyjvf codes; unclassified (2 sources)Sleep apnea, unspecified; Translations: [Sleep apnea, unspecified type]Onset: 23-22-5094IrwyzwoMzgiqmgd codes; unclassified (1 source)Other sleep apnea; Translations: [OTHER SLEEP APNEA]Onset: 05-08-2022 ChronicResidual codes; unclassified (1 source)Pain; Translations: [Pain, unspecified]54-08-0078CodibispKgplctvm codes; unclassified (1 source)Pain, unspecified; Translations: [Pain, unspecified]Onset: 02-09-2025 EpisodicSpondylosis; intervertebral disc disorders; other back problems (20 sources)Intervertebral disc prolapse; Translations: [Displacement of intervertebral disc, site unspecified,without myelopathy]Onset: 09-14-2021 Resolved: 94-71-0822CysephyPgtmfoh disorders (20 sources)Polina thyroiditis; Translations: [Chronic lymphocytic thyroiditis]Onset: 160755-54-8057SaiogmnNlpsljwlfvmn (3 sources)GASTR-ESOPH RFLX DS ESPHGTS W/O BLD; Translations: [GASTR-ESOPH RFLX DS ESPHGTS W/O BLD]Onset: 56-12-7224Ekctcoikiyzu (1 source)Nutrition CounselingOnset: 65-22-3043Ryljsrqjbdtx (1 source)GasOnset: 84-98-5088Cvvqehonneai (1 source)BloatedOnset: 45-49-9542Lmtmqckilxtc (1 source)New PatientOnset: 05-46-8572Vttsdgcgugrg (2 sources)Autogenerated ProblemOnset: 639142-73-2477Xawcw infection (3 sources)Herpes -62-1541Gnwqopaq Past or Other Problems Problem ClassificationProblemDateDocumented DateEpisodic/Chronic Administrative/social admission (20 sources)Patient encounter status; Translations: [Encounter for pre- employment examination]Onset: 02-20-2021 Resolved: 199284-47-0858XtzhryvxAijqtgh disorders (20 sources)Mixed anxiety and depressive disorder; Translations: [Dysthymic disorder]Onset: 11-03-2020 Resolved: 53-12-8933VmlncorRyziqpmhtwoqa and procreative management (10 sources)Subcutaneous contraceptive implant present; Translations: [Encounter for surveillance of implantable subdermal contraceptive]Onset: 07-28-2024 75-47-3996GfnunsnxMgtqrpwlzu disorders (20 sources)Gastroesophageal reflux disease; Translations: [Esophageal reflux] Onset: 11-03-2020 Resolved: 936330-26-3849LqxntqcVrzgwrymd hypertension (20 sources)Benign essential hypertension; Translations: [Benign essential hypertension]Onset: 10-02-2021 Resolved: 006270-36-2648YucycbfApwwq and electrolyte disorders (17 sources)Dehydration; Translations: [Dehydration]Onset: EpisodicMood disorders (17 sources)Mood disordersOnset: 03-04-2023 Resolved: 493854-27-8065Avsghaabciz deficiencies (20 sources)Cobalamin deficiency; Translations: [Deficiency of other specified B group vitamins]Onset: 886352-06-6592MbffszslNgwbj complications of (17 sources)Thyroid disease in mother complicating , childbirth AND/OR puerperium; Translations: [Endocrine, nutritional and metabolic diseases complicating , unspecified trimester]Onset: 08-11-2018 Resolved: 963089-47-0495UjavtiyrLxrug complications of (17 sources)Depressive disorder in mother complicating ; Translations: [Other mental disorders complicating , unspecified trimester]Onset: 08-11-2018 Resolved: 293379-58-6933RcfxkosfEwhba complications of (7 sources)Anxiety in ; Translations: [Other mental disorders complicating , unspecified trimester]Onset: 08-11-2018 Resolved: 602092-27-1431HrztxsppUphxf complications of (10 sources)Other mental disorders complicating , unspecified trimester; Translations: [Mental disorders of mother, antepartum condition or complication]Onset: 08-11-2018 Resolved: 808437-99-1952SafpdctnDjzzz connective tissue disease (4 sources)Lateral epicondylitis, left elbow; Translations: [Lateral epicondylitis of both elbows]Onset: 03-19-2022 Resolved: 63-82-4807VygslpwiPhxay connective tissue disease (5 sources)Lateral epicondylitis, right elbow; Translations: [Lateral epicondylitis of both elbows]Onset: 03-19-2022 Resolved: 70-88-1583GosgifksZekiy connective tissue disease (2 sources)Fibromyalgia; Translations: [Fibromyalgia]Onset: 08-55-4648Tsnbzztu Other connective tissue disease (12 sources)Lateral epicondylitis of right humerus; Translations: [Lateral epicondylitis, right elbow]Onset: 55-26-3554MsnhmpuiIlgsk connective tissue disease (18 sources)H/O: musculoskeletal disease; Translations: [Personal history of other diseases of the musculoskeletal system and connective tissue]Onset: 176061-27-3333BznvbzmnNjijj connective tissue disease (17 sources)Muscle pain; Translations: [Myalgia, unspecified site]Onset: 646762-84-3354OhfnixejChvmk connective tissue disease (17 sources)Tendinitis of left elbow; Translations: [Other enthesopathies, not elsewhere classified]Onset: 12-06-2020 Resolved: 014240-62-5477KegpuzreStkvi connective tissue disease (1 source)Panniculitis, unspecified; Translations: [Panniculitis, unspecified] Onset: 71-15-3126WkqijtdlSeefc ear and sense organ disorders (17 sources)Pain of ear structure; Translations: [Otalgia, bilateral]Onset: 07-20-2021 Resolved: 584711-17-7388EdllswqeIkuno gastrointestinal disorders (12 sources)History of bariatric surgical procedure; Translations: [Bariatric surgery status]30-46-3142ThbetsaoCpzrt gastrointestinal disorders (20 sources)Constipation; Translations: [Other constipation]Onset: 05-30-2023 87-29-0752DtnscerwNabfz gastrointestinal disorders (1 source)Drug-induced constipation; Translations: [Drug induced constipation] 29-44-1013NpibtydwGrljw gastrointestinal disorders (3 sources)Bariatric surgery status; Translations: [Bariatric surgery status] Onset: 53-26-5593FxfpdeayOzgrf gastrointestinal disorders (1 source)Constipation, unspecified; Translations: [Constipation, unspecified] Onset: 43-95-9139HcdshgjhJnjxe liver diseases (17 sources)Enzyme level - finding; Translations: [Elevated transaminase level] Onset: 785285-35-2886KccmqdolPfgmp nervous system disorders (17 sources)H/O: migraine; Translations: [Personal history of other diseases of the nervous system and sense organs]Onset: 08-11-2018 Resolved: 773740-08-4515AiznwutlSonye non-traumatic joint disorders (2 sources)Pain in unspecified hipOnset: 11-16-2021 Resolved: 25-34-5402QvrbwbkoAvlub non-traumatic joint disorders (4 sources)Pain in left elbow; Translations: [Left elbow pain]Onset: 03-19-2022 Resolved: 75-94-7660BmlagmyzQofov non-traumatic joint disorders (2 sources)Pain in right elbow; Translations: [Right elbow pain]Onset: 79-88-3330WoofavxnVrrba non-traumatic joint disorders (2 sources)Pain in right hip; Translations: [Pain in joint, pelvic region and thigh]Onset: 597370-05-9974UcbkhjsoQwjqn nutritional; endocrine; and metabolic disorders (20 sources)Body mass index 40+ - severely obese; Translations: [Morbid obesity] Onset: 11-28-2022 Resolved: 909971-67-8679JymmxweDzmsn nutritional; endocrine; and metabolic disorders (17 sources)Obese class I; Translations: [Obesity, Class I, BMI 30-34.9]Onset: 02-28-2023 Resolved: 326552-24-1356TanjgszHzduz nutritional; endocrine; and metabolic disorders (12 sources)Weight increased; Translations: [Abnormal weight gain]Onset: 02-15-2022 Resolved: 854021-12-2647JacsfcvvMdubt nutritional; endocrine; and metabolic disorders (5 sources)Weight gain; Translations: [Abnormal weight gain]Onset: 02-15-2022 Resolved: 541598-05-6484UrtoewcrOfzce skin disorders (16 sources)Acne; Translations: [Acne, unspecified]Onset: 524731-86-0195 EpisodicResidual codes; unclassified (17 sources)At risk of disease; Translations: [Other specified personal risk factors, not elsewhere classified]Onset: 568648-20-5924Zkvqpcfe Spondylosis; intervertebral disc disorders; other back problems (20 sources)Spasm of back muscles; Translations: [Other symptoms referable to back]Onset: 08-11-2018 Resolved: 53-77-1564RpyswigcMgbipfw and strains (17 sources)Sprain of left wrist; Translations: [Unspecified sprain of left wrist, initial encounter]Onset: 02-20-2021 Resolved: 012222-31-4224CpifiwnlAgvwuovmkpbg (20 sources)Other low back pain; Translations: [Other low back pain]Unclassified (6 sources)Other low back pain M54.59Onset: 09-14-2021 Resolved: 99-62-0147Cszrkvdaupkp (1 source)GASTR-ESOPH RFLX DS ESPHGTS W/O BLD; Translations: [GASTR-ESOPH RFLX DS ESPHGTS W/O BLD]Onset: 37-26-1257Ljreactvzszl (3 sources)History of bypass of lfcpzci01-75-5449 Results Test NameValueInterpretationReference RangeFacilityUS ABDOMEN LMTDon 01-29-2025 [...] by Jake Coleman MD on 01/29/2025 1:09 [facility] XR ABDOMEN AP 1 VWon 90-74-9211LJ ABDOMEN AP 1 VWXR ABDOMEN AP 1 [...] by Israel Luis MD on 01/28/2025 6:18 PMNormalProRiverside Methodist HospitalFERRITINon 48-12-3277Kjljbxqf [Mass/Vol]13 ng/jQWfrnez48-584FulYgckuzThe MetroHealth SystemComment on above:Order Comment: Add to blood from 01/13/25. Performed By: #### FERR #### [facility] ([facility]) [address] [place] [address] VIRFerritinon 65-01-5593Bkvjueif [Mass/Vol]13 ng/mL11 - 307 ng/mLAdams County Regional Medical CenterInterpretation and review of laboratory results NormalProOhio Valley Surgical HospitalProOhio Valley Surgical HospitalIron and TIBCon 01-15-2025 Interpretation and review of laboratory resultsAbnormalProOhio Valley Surgical Hospital Iron [Mass/Vol]170 ug/dL50 - 170 ug/dLAdams County Regional Medical CenterIron binding capacity [Mass/Vol]434 ug/pIOamd808 - 425 ug/dLAdams County Regional Medical CenterIron saturation [Mass fraction]39ProOhio Valley Surgical HospitalTransferrin [Mass or moles/Vol]310 mg/dL168 - 336 mg/dLVernon Memorial Hospital System CALCIUMon 64-29-0036Eqbcesq [Mass/Vol]9.2 mg/dLNormal8.5-10.5PKettering Health Washington TownshipComment on above:Performed By: #### CA #### [facility] ([facility]) [address] [place] [address] VIRCBC WITH AUTO DIFFERENTIALon 73-12-0496PKRPJWGNI ABSOLUTE COUNT (10*3/UL) BY AUTOMATED COUNT0.0 10*3/uLNormal0.0-0.2PKettering Health Washington TownshipComment on above:Performed By: #### CBCA #### [facility] ([facility]) [address] [place] [address] VIRBASOPHILS RELATIVE PERCENT BY AUTOMATED COUNT1.0 %Normal [facility] SystemComment on above:Performed By: #### CBCA #### [facility] ([facility]) [address] [place] [address] VIRCELLAVISION DIFFERENTIAL TYPEAUTOMATED DIFFERENTIALNormal [facility] SystemComment on above:Performed By: #### CBCA #### [facility] ([facility]) [address] [place] [address] VIREosinophils (Bld) [#/Vol]0.0 10*3/uLNormal0.0-0.4Av[facility] Health SystemComment on above:Performed By: #### CBCA #### [facility] ([facility]) [address] [place] [address] VIREOSINOPHILS RELATIVE PERCENT BY AUTOMATED COUNT1.0 %Normal [facility] SystemComment on above:Performed By: #### CBCA #### [facility] ([facility]) [address] [place] [address] VIRErythrocyte distribution width (RBC) [Ratio]14.4 %Normal 11.5-15[facility] SystemComment on above:Performed By: #### CBCA #### [facility] ([facility]) [address] [place] [address] VIRHematocrit (Bld) [Volume fraction]36.0 %Xuqvxo02-25XqzJhxhjyThe Hospitals Of Providence Memorial CampusComment on above:Performed By: #### CBCA #### [facility] ([facility]) [address] [place] [address] VIRHemoglobin (Bld) [Mass/Vol]12.0 g/dQZzivvs02.7-15.5PKettering Health Washington TownshipComment on above:Performed By: #### CBCA #### [facility] ([facility]) [address] [place] [address] VIRLYMPHOCYTES ABSOLUTE COUNT (10*3/UL) BY AUTOMATED COUNT1.5 10*3/uLNormal1.0-3.5PKettering Health Washington TownshipComment on above:Performed By: #### CBCA #### [facility] ([facility]) [address] [place] [address] VIRLYMPHOCYTES RELATIVE PERCENT BY AUTOMATED COUNT30.6 %Normal [facility] SystemComment on above:Performed By: #### CBCA #### [facility] ([facility]) [address] [place] [address] VIRMCH (RBC) [Entitic mass]29.4 eyMqljov76-27WlfVwspsiAvita Health SystemComment on above:Performed By: #### CBCA #### [facility] ([facility]) [address] [place] [address] VIRMCHC (RBC) [Mass/Vol]33.4 g/cFOrhony91-79PhrKqvobjAvita Health SystemComment on above:Performed By: #### CBCA #### [facility] ([facility]) [address] [place] [address] VIRMCV (RBC) [Entitic vol]88 uVZavpeq48-341FspLplwmy Fremont HospitalComment on above:Performed By: #### CBCA #### [facility] ([facility]) [address] [place] [address] VIRMONOCYTES ABSOLUTE COUNT (10*3/UL) BY AUTOMATED COUNT0.3 10*3/uLNormal0.0-0.9Avita Health SystemCommymichigan medical center sault on above:Performed By: #### CBCA #### [facility] ([facility]) [address] [place] [address] VIRMONOCYTES RELATIVE PERCENT BY AUTOMATED COUNT6.6 %Normal [facility] SystemComment on above:Performed By: #### CBCA #### [facility] ([facility]) [address] [place] [address] VIRNEUTROPHILS ABSOLUTE COUNT BY AUTOMATED COUNT2.9 10*3/uL Normal1.5-6.6Avita Health SystemCommymichigan medical center sault on above:Performed By: #### CBCA #### [facility] ([facility]) [address] [place] [address] VIRNEUTROPHILS RELATIVE PERCENT BY AUTOMATED COUNT60.8 %Normal Avita Health SystemComment on above:Performed By: #### CBCA #### [facility] ([facility]) [address] [place] [address] VIRPlatelet mean volume (Bld) [Entitic vol]8.0 fLNormal7-12 [facility]ita Health SystemComment on above:Performed By: #### CBCA #### [facility] ([facility]) [address] [place] [address] VIRPlatelets (Bld) [#/Vol]333 10*3/eOIgdgbc512-522VweTqbnrw [facility] HospitalCommymichigan medical center sault on above:Performed By: #### CBCA #### [facility] ([facility]) [address] [place] [address] VIRRBC COUNT4.08 X10E12/LNormal3.8-5.2PKettering Health Washington TownshipComment on above:Performed By: #### CBCA #### [facility] ([facility]) [address] [place] [address] VIRWBC (Bld) [#/Vol]4.8 10*3/uLNormal4-11Av[facility] Health SystemCommymichigan medical center sault on above:Performed By: #### CBCA #### [facility] ([facility]) [address] [place] [address] VIRCOPPER, Son 99-15-5780LPMPQX639 mcg/pGJunqam46-269JxgUofgaxAvita Health SystemComment on above:Result Comment: ADDITIONAL INFORMATION This test was developed and its performance characteristics determined by [facility] in a manner consistent with CLIA requirements. This test has not been cleared or approved by the U.S. Food and Drug Administration. Test Performed by: [facility] [address] [place] [address] Elevator Mechanic Apprentice: Danielle Paiz Ph.D.; CLIA# [id number] By: #### CPS #### [facility] [employer] ([employer]) [address] [place] [address] VIRFOLATEon 14-00-0488ONZTY ACID>^25.0Normal>5.8ProThe Hospitals Of Providence Memorial CampusComment on above:Performed By: #### FOLI #### [facility] ([facility]) [address] [place] [address] VIRIRONon 29-58-2426Nzvn [Mass/Vol]182 ug/hWSxgq72-302ZtwVjkpmmAvita Health SystemComment on above:Performed By: #### FE #### [facility] ([facility]) [address] [place] [address] VIRIRON AND TIBCon 20-00-6888Mgrg [Mass/Vol]170 ug/dLNormal 50-170ProThe Hospitals Of Providence Memorial CampusComment on above:Order Comment: Add to blood from 01/13/25.Performed By: #### PTH #### [facility] ([facility]) [address] [place] [address] VIRIRON SVLEOQT267 ug/iKZdhw512-023GymSwgwnhAvita Health System Comment on above:Order Comment: Add to blood from 01/13/25.Performed By: #### PTH #### [facility] ([facility]) [address] [place] [address] VIRIRON SUMTKWIJNN18 % RMCWEIAAPDPkxbgd46-20NdeUmzrao Fremont HospitalComment on above:Order Comment: Add to blood from 01/13/25.Performed By: #### PTH #### [facility] ([facility]) [address] [place] [address] VIRTransferrin [Mass/Vol]310 mg/bFZlming950-720NfdKrpqke [facility]remont HospitalComment on above:Order Comment: Add to blood from 01/13/25. Performed By: #### PTH #### [facility] ([facility]) [address] [place] [address] VIRLIVER PANELon 10-23-9039Jpdusvw [Mass/Vol]4.5 g/dLNormal 3.2-5.3PKettering Health Washington TownshipComment on above:Performed By: #### LIVR #### [facility] ([facility]) [address] [place] [address] VIRALP [Catalytic activity/Vol]85 U/NObjmvt10-290NbfHutejoThe Hospitals Of Providence Memorial CampusComment on above:Performed By: #### LIVR #### [facility] ([facility]) [address] [place] [address] VIRALT [Catalytic activity/Vol]36 U/LHigh<=31PKettering Health Washington TownshipComment on above:Performed By: #### LIVR #### [facility] ([facility]) [address] [place] [address] VIRAST [Catalytic activity/Vol]25 U/LNormal<=41ProThe Hospitals Of Providence Memorial CampusComment on above:Performed By: #### LIVR #### [facility] ([facility]) [address] [place] [address] VIRBilirubin [Mass/Vol]0.4 mg/dLNormal0.3-1.2PKettering Health Washington TownshipComment on above:Performed By: #### LIVR #### [facility] ([facility]) [address] [place] [address] VIRBilirubin.indirect [Mass/Vol]0.1 mg/dLNormal<=0.4ProThe Hospitals Of Providence Memorial CampusComment on above:Performed By: #### LIVR #### [facility] ([facility]) [address] [place] [address] VIRProtein [Mass/Vol]7.3 g/dLNormal6.0-8.0ProThe Hospitals Of Providence Memorial CampusComment on above:Performed By: #### LIVR #### [facility] ([facility]) [address] [place] [address] VIRPARATHYROID HORMOME, INTACTon 68-65-6703WXG WRAWHK61 pg/mL Ldvbud40-12ItlVstchaThe Hospitals Of Providence Memorial CampusComment on above:Performed By: #### PTH #### [facility] ([facility]) [address] [place] [address] VIRTHIAMIN (VITAMIN B1), WBon 74-89-3782DMSFGSG (VITAMIN B1), WB101 nmol/DJogdrj47-458IfqSifboeThe Hospitals Of Providence Memorial CampusComment on above:Result Comment: ADDITIONAL INFORMATION This test was developed and its performance characteristics determined by [facility] in a manner consistent with CLIA requirements. This test has not been cleared or approved by the U.S. Food and Drug Administration. Test Performed by: [facility] [address] [place] [address] Elevator Mechanic Apprentice: Danielle Paiz Ph.D.; CLIA# [id number] By: #### PTH #### [facility] ([facility]) [address] [place] [address] VIRVITAMIN A (RETINOL)on 43-52-9058AIATOUF PALMITATE<0.02Normal 0.00-0.10ProThe Hospitals Of Providence Memorial CampusComment on above:Performed By: #### PTH #### [facility] ([facility]) [address] [place] [address] VIRVIT A,SER/PL INTERPNormalNormalProThe Hospitals Of Providence Memorial Campus Comment on above:Result Comment: This test was developed and its performance characteristics determined by [employer]. It has not been cleared or approved by the US Food and Drug Administration. This test was performed in a CLIA certified laboratory and is intended for clinical purposes. Performed By: [employer] [address] [place] [address] Sock Lining Stitcher: Jerome Abreu MD, PhD CLIA Number: [id number] By: #### PTH #### [facility] ([facility]) [address] [place] [address] VIRVITAMIN A(RETINOL)0.44 mg/LNormal0.30-1.20Avita Health SystemComment on above:Performed By: #### PTH #### [facility] ([facility]) [address] [place] [address] VIRVITAMIN B12on 09-15-7012Xksiwgqvz (Vitamin B12) [Mass/Vol] 595 pg/mHAlxtnu531-586TrlQxklqoKettering Health Washington TownshipComment on above:Performed By: #### B12 #### [facility] ([facility]) [address] [place] [address] VIRVITAMIN D 25 HYDROXYon 33-08-6910TRXSKZL D 25 HYD TOT39.5 ng/jFWwdmbh32.0-100.0Avita Health SystemComment on above:Order Comment: Vitamin D status 25 [place] Vitamin D Deficiency <20 ng/mL Insufficiency 20-29 ng/mL Sufficiency 30-100 ng/mL Toxicity >100 ng/mL NOTE: A pediatric reference range has not been established by the public health aide of this kit. The [place] [employer] recommends a Vitamin D level of = or >20ng/mL in infants and children.Performed By: #### VITD #### [facility] ([facility]) [address] [place] [address] KYLE, SERUMon 63-86-2914TZGV, S73 mcg/hIRfqxxg52-980 Avita Health SystemComment on above:Result Comment: ADDITIONAL INFORMATION This test was developed and its performance characteristics determined by [facility] in a manner consistent with CLIA requirements. This test has not been cleared or approved by the U.S. Food and Drug Administration. Test Performed by: [facility] [address] [place] [address] Elevator Mechanic Apprentice: Danielle Paiz Ph.D.; CLIA# [id number] By: #### ZINCS #### [facility] [employer]) [address] [place] [address] VIRNonvisit Note - PTon 65-91-6595Eiecxfnl Note - PTNonvisit Note - PT 09/30/24 hf, pt left voice mail, can not make it, will call back to reschedule. [facility] HospitalProvider Letteron 84-00-0062Heefqznw Letter Provider Letter September 25, 2024 [address] [place] [phone] : 1985 To Whom It May Concern, Please excuse above student from school - allow late arrive due to having been at a doctor's appointment this morning Comments: If any further verification is needed, please call us at [phone] option 3. Sincerely, [facility] HospitalMain OR Intraoperative Recordon 48-10-2413Wmda OR Intraoperative RecordMain OR Intraoperative Record IntraOp Document Type FTPM Summary Primary Physician: Kamaljit May DO Finalized Date/Time: 09/10/24 08:34:04 Pt. Name: MIGUEL MICHELLE Han D.O.B./Sex: 1985 Female Med Rec #: [id number] Physician: Kamaljit May DO Financial #: [id number] Pt. Type: P Room/Bed: / Admit/Disch: 09/10/24 [...] Winnie Casey Role Performed Surgeon - Primary Paper Cup Handle Machine Operator - Primary Scrub - Primary Time In [...] Woo Ayoub Role Performed Scrub - Relief Bench Grinder Time In 09/10/24 08:12:00 09/10/24 08:12:00 Time [...] and tissue Entry 1 Skin Integrity Intact, [place], Warm, & Skin Abnormality No Dry Outcomes [...] Resting at Side (more content not included)...[facility] HospitalMain OR Preoperative Recordon 60-27-3094Revm OR Preoperative RecordMain OR Preoperative Record Holding Area Document Type FTPM Summary Primary Physician: Kamaljit May DO Finalized Date/Time: 09/10/24 07:26:04 Pt. Name: MICHELLE RIVERA/Sex: 1985 Female Med Rec #: [id number] Physician: Kamaljit May DO Financial #: [id number] Pt. Type: P Room/Bed: / Admit/Disch: 09/10/24 [...] Signatures Signed By: Belle Vargas RN 09/10/24 07:26NoMercy Health Kings Mills HospitalOperative Report on 83-91-2687Kxfclmctj ReportOperative Report Diagnosis: M47.816, bilateral lumbar spondyloarthropathy [...] patient agrees to continue currently prescribed/recommended therapies.[facility] HospitalComment on above:Result Comment: Electronically Signed By: Kamaljit May DO\Date and Time Signed: 09/10/24 08:36 ESTInsertion/Removal of Contraceptive Capsuleon 47-37-5502WteqyMarcelina Khan LPN 07/29/2024 10:35 AM Insertion/Removal of [...] the office as needed for any routine appointments.[facility] CareNonvisit Note - PTon 48-91-7259Mnngimgl Note - PT Nonvisit Note - PT Chart reviewed with eval prepped for scheduled eval. KKNormKettering Health Behavioral Medical Center 95-14-7993WqibriksoInhjfvnuy From: Specker, Bailey M To: EU - [...] patients that late. She will call back.[facility] HospitalUrology Office/Clinic Noteon 52-56-8585Ljboqsy Office/Clinic Note Urology Office/Clinic Note Chief Complaint [...] could include cysto, urodynamics, Botox, SNM. Ordered: [facility] Outpatient Physical Therapy Evaluate Patient, Develop a [...] patient would like referral for PFPT. Ordered: [facility] Outpatient Physical Therapy Evaluate Patient, Develop a [...] continue to monitor if blood persists after [employer]/GIeval/tx. Orders: mirabegron, 25 mg = 1 tab(s), [...] BARR PA-C, URL Within 3 months [address] [place] [address] Additional Instructions: Patient Education Overactive Bladder, Adult Problem List/Past Medical History Ongoing Acid reflux Anxiety with depression Asthma Back spasm Fibromyalgia Polina's disease Heart murmur Herpes simplex History of degenerative disc disease Hypertension Hypothyroidism Microhematuria OAB (overactive bladder) Sleep apnea Historical No qualifying data Procedure/Surgical History Partial hysterectomy (07/17/2024), Gastric bypass (11/28/2022), Adenoidectomy, Tonsillectomy. Medications calcium (as carbonate)-vitam (more content not included)...[facility] HospitalComment on above:Result Comment: Electronically Signed By: HARDY BARR PA-C\.br\Date and Time Signed: 07/20/2415:15 ESTALL CBC WITH AUTO DIFFon 04-06-7130HCWIWTBBU ABSOLUTE SVJH8VHLI HealthcareBasophils/100 WBC (Bld) 0.6 %0.2 - 2.0 %NOMS HealthcareEosinophils/100 WBC (Bld)1.3 %0.9 - 7.0 %NOMS HealthcareErythrocyte distribution width (RBC) [Ratio]12.4 %11.0 - 15.0 %NOMS HealthcareHematocrit (Bld) [Volume fraction]34.8 %Low36.0 - 48.0 %[facility] Regional HospitalHemoglobin (Bld) [Mass/Vol]11.3 g/dLLow12.0 - 16.0 g/dLHannibal Regional Hospital IMMATURE GRANULOCYTES ABS AUTO0.01NODoctors Hospital of SpringfieldImmature granulocytes/100 WBC (Bld)0.2 %0.0 - 0.5 %[facility] HospitalInterpretation and review of laboratory resultsAbnormalHannibal Regional HospitalLYMPHOCYTES ABSOLUTE AUTO1.7NOMS [facility] Lymphocytes/100 WBC (Bld)35.7 %20.5 - 60.0 %[facility]als for ChildrenH (RBC) [Entitic mass]29.1 pg26.7 - 34.0 pgShriners Hospitals for ChildrenHC (RBC) [Mass/Vol]32.5 g/dL29.9 - 35.2 g/dLShriners Hospitals for ChildrenV (RBC) [Entitic vol]89.7 fL81.0 - 99.0 fLHannibal Regional HospitalMONOCYTES ABSOLUTE AUTO0.5NODoctors Hospital of SpringfieldMonocytes/100 WBC (Bld)9.4 % 1.7 - 12.0 %[facility] HospitalNEUTROPHILS ABSOLUTE AUTO2.5NOMS [facility] Neutrophils/100 WBC (Bld)52.8 %43.0 - 75.0 %[facility] Regional HospitalPlatelet mean volume (Bld) [Entitic vol]9.6 fL9.5 - 13.5 fLHannibal Regional HospitalTB EO #0.1NOMS [facility] ADT984BBOX [facility] RBC3.88LowNOMS [facility] WBC4.8NODoctors Hospital of Springfield CLINISYNCHannibal Regional HospitalLon 07-17-2024L Specimen: [id number] Received: 07/17/24012 Status: CALLY Joy Num: [id number] Spec Type: Surgical Subm Dr: Kirby Heredia Tissues: A Fallopian Tube - Sterilization (BILAT FAL TUBES) Procedures: HE/2, Gross/Micro L2 Age/ Patient Sex Location Account Attending Physician Michelle Rivera 39/F LABE[place] [id number] Kirby Heredia SPEC NUM: [id number] RECD: 07/17/24 STATUS: CALLY JOY NUM: [id number] HUMBLE: 07/17/24 [facility] DR: Kirby Heredia ENTERED: 07/17/24 [facility] [address]: Moon,Lab SPEC TYPE: Surgical DEPT: [facility] ENTERED BY: [id number] RECV BY: [id number] ORDERED: HE/2, Gross/Micro L2 ORDERED: HE/2, Gross/Micro [...] sections reveal pinpoint lumen within each segment. Rotor Winder sections are submitted. Cassettes: A1 Entirety of trisected fimbriated and and service support representative cross-sections of shorter tube A2 Entirety of trisected fimbriated end and service support representative cross-sections of longer tube (2, ss, XB96-351O) CPT Codes 00865 Specimen: [id number] Received: 07/17/24 Status: CALLY Joy Num: [id number] Spec Type: Surgical Subm Dr: Kirby Heredia Tissues: A Fallopian Tube - Sterilization (BILAT FAL TUBES) Procedures: HE/Titi Ritchie/Fernando L2 Patient: Michelle Rivera [id number] (Continued) Signed (signature on file) Kinga Malone MD 07/20/24 1619[facility] Physician GroupTB PREG QUANT HCGon 07-17-2024 HCG QUANTITATIVE<1mIU/mLNOMS HealthcareComment on above:5-50 0.2-1 WEEK 50-500 1-2 WEEKS 100-5,000 2-3 WEEKS 500-10,000 3-4 WEEKS 1,000-50,000 4-5 WEEKS 10,000-100,000 5-6 WEEKS 15,000-200,000 6-8 WEEKS 10,000-100,000 2-3 MONTHS CLINISYNCNOMS HealthcareAmbulatory Visit Summaryon 21-46-6699Mvsofgmzfp Visit SummaryAmbulatory Visit Summary MICHELLE RIVERA :1985 [...] for choosing us for your care. [facility] HospitalIGP,APTIMA HPV,AGE GDLNon 42-75-9623FWI GDLN ACOG TESTINGNote.NOMS HealthcareComment on above:TESTS RESULT FLAG UNITS REF RANGE LAB Clinician Provided Cytology Information Source.............Cervix;Endocervix No. of containers..01 ThinPrep Vial Age Algo ACOG Savanah... FLAG LEGEND: L-Low Normal,H-High Normal,LL-Alert Low,HH-Alert High <-Panic Low,>-Panic High,A-Abnormal,AA-Critical Abnormal Performed at: 01 =G Dagmar Baltazar [address] [place] [address] Cyn Rodriguez MD, HPV APTIMANegativeNegativeNOMS HealthcareComment on above:This nucleic acid amplification test detects fourteen high- risk HPV types (16,18,31,33,35,39,45,51,52,56,58,59,66,68) without differentiation. Performed at: = - [facility] [id number] Elevator Mechanic Apprentice: Cyn Rodriguez MD, Phone: [phone] Performed at: - [facility] [id number] Elevator Mechanic Apprentice: Cyn Rodriguez MD, Phone: [phone] IGP, APTIMA HPV, RFX 16/18,45Note.NOMS HealthcareComment on above:TESTS RESULT FLAG UNITS REF RANGE LAB DIAGNOSIS: 02 NEGATIVE FOR INTRAEPITHELIAL LESION OR MALIGNANCY. Specimen adequacy: 02 Satisfactory for evaluation. Endocervical and/or squamous metaplastic cells (endocervical component) are present. Performed by: Kathy Vizcaino, Benefits Specialist (ASCP) . 02 Note: Note 02 The [...] High,A-Abnormal,AA-Critical Abnormal Performed at: 02 WB [facility] [address] [place] [address] Cyn Rodriguez MD, BRUSH-SPATULA CERVIX ENDOCERVIX CLINISYNCNOMS HealthcareUS PELVIS W/ TRANSVAGINALon 98-57-0932[place]vmBur[place], [place] [address] Ultrasound Report Signed Patient: MICHELLE RIVERA MR#: [id number] : 1985 Acct:[id number] Age/Sex: 39 / F ADM Date: 07/09/24 Loc: [facility] Attending Dr: Kirby Heredia D.O. Ordering Physician: Kirby Heredia D.O. Date of Service: 07/09/24 Procedure(s): US pelvis w/ transvaginal Accession Number(s): [id number] cc: Kirby Heredia D.O.; Physician,Non-Staff Kierra The [address] [address] Patient Name: MICHELLE RIVERA MRN: [id number] date: 1985 Sex: F [facility]igned [facility] Current Patient Location: Accession/Order Number: [id number] Exam Date: 07/09/2024 09:32 Report Date: 07/10/2024 [...] Morales M.D. Signed By: 07/10/2435 DD/ TD/TT: Retail Support Specialist:TBHRadiology, Radiologist, MD - 07/10/2024 [place] [address] Ultrasound Report Signed Patient: MICHELLE RIVERA MR#: [id number] : 1985 Acct:[id number] Age/Sex: 39 / F ADM Date: 07/09/24 Loc: [facility] Attending Dr: Kirby Heredia D.O. Ordering Physician: Kirby Heredia D.O. Date of Service: 07/09/24 Procedure(s): US pelvis w/ transvaginal Accession Number(s): [id number] cc: Kirby Heredia D.O.; Physician,Non-Staff MMiguel A The [place] [id number] Patient Name: MICHELLE RIVERA MRN: [id number] date: 1985 Sex: F Assigned Patient Location: [facility] Current Patient Location: Accession/Order Number: [id number] Exam Date: 07/09/2024 09:32 Report Date: 07/10/2024 [...] Morales M.D. Signed By: 07/10/2435 DD/ TD/TT: Retail Support Specialist: [facility]ACH[facility]ETTSJack HealthcareRadiology Study observation (narrative)[facility] Regional HospitalUS PELVIS W/ TRANSVAGINALOrdered By: Radiologist Radiology on 08-40-2728BQPT [employer] Work Phone: HCG ( test) Ql (U)on 98-84-9493Djciohbtgpubvw and review of laboratory resultsNormalNODoctors Hospital of SpringfieldPreg Test, UrNegativeNOAscension Northeast Wisconsin Mercy Medical CenterLon 71-38-2333HVrsupmnk: [id number] Received: 05/29/241348 Status: CALLY Joy Num: [id number] Spec Type: Surgical Subm Dr: Kirby Heredia Tissues: A Endometrium - Biopsy (EMBX) Procedures: HE/2, Gross/Micro L4 Age/ Patient Sex Location Account Attending Physician MiguelMichelle Avalos 39/F LABE[place] [id number] Kirby Heredia SPEC NUM: [id number] RECD: 05/29/24 STATUS: ZHANGCandis GRACIAAlexa NUM: [id number] HUMBLE: 05/28/24- SUBM DR: Kirby Heredia ENTERED: 05/29/24-0 [facility] [address]: Moon,Lab SPEC TYPE: Surgical DEPT: [facility] ENTERED BY: [id number] RECV BY: [id number] ORDERED: HE/2, Gross/Micro L4 ORDERED: HE/2, Gross/Micro [...] is entirely submitted in cassette A1. Specimen: [id number] Received: 05/29/24 Status: CALLY Oscar Num: [id number] Spec Type: Surgical Subm Dr: Kirby Heredia Tissues: A Endometrium - Biopsy (EMBX) Procedures: HE/2, Gross/Micro L4 Patient: Michelle Rivera [id number] (Continued) Specimen: [id number] Received: 05/29/24 (Continued) Signed (signature on file) Eloy Nguyen MD 06/01/24 1626 Specimen: [id number] Received: 05/29/24 Status: CALLY Joy Num: [id number] Spec Type: Surgical Subm Dr: Kirby Heredia Tissues: A Endometrium - Biopsy (EMBX) Procedures: HE/2, Gross/Micro L4 Patient: Michelle Rivera [id number] (Continued) Specimen: [id number] Received: 05/29/24 (Continued) Microscopic Description Microscopic examinations are performed supporting the above interpretation CPT Codes 50967 Specimen: [id number] Received: 05/29/24 Status: CALLY Joy Num: [id number] Spec Type: Surgical Subm Dr: Kirby Heredia Tissues: A Endometrium - Biopsy (EMBX) Procedures: HE/2, Gross/Micro L4 Patient: Michelle Rivera [id number] (Continued) Signed (signature on file) Francisco-Sandor Nguyen MD 06/01/[address] [place] [address] Physician GroupMLR HEMOGLOBIN A1Con 40-51-3417Uqrxwhc [Mass/Vol]105 mg/dLNOMS AphdnrzvoyKmM2z (Bld) [Mass fraction]5.3 %4.5 - 6.2 % [...] HealthcareNOMS HealthcareXR hip RT min 2V(w/wo pelvis)*on 28-17-2155KP hip RT min 2V(w/wo pelvis)*[facility] Main [address] [address] XRay Report Signed Patient: Michelle Rivera MR#: [id number] : 1985 Acct:[id number] Age/Sex: 38 / F ADM Date: 11/14/23 Loc: [facility] Room: Type: [facility] CLI Attending Dr: Ed Malhotra MD [...] Gordo Escalante M.D.11/14/2023 2:25 PM Dictation Location: [place] [address] Transcribed By: [facility] 11/14/23 1425 Dictated By: Gordo Escalante II, MD 11/14/23 142 Signed By: 11/14/23 1425[facility] Physician GroupXR lumbar spine AP/LAT/FLX/EXTon 18-08-0885KH lumbar spine AP/LAT/FLX/EXTGEORGETOWN BEHAVIORAL HOSPITAL Main [place] [address] [place], [place] [id number] XRay Report Signed Patient: Michelle Rivera MR#: [id number] : 1985 Acct:[id number] Age/Sex: 38 / F ADM Date: 11/14/23 Loc: [facility] Room: Type: [facility] CLI Attending Dr: Ed Malhotra MD [...] Gordo Escalante M.D.11/14/2023 2:23 PM Dictation Location: [place] [address] Transcribed By: [facility] 11/14/23 1423 Dictated By: Gordo Escalante II, MD 11/14/23 1421 Signed By: 11/14/23 1423[facility] Physician GroupInfluenza virus B Ag [Presence] in Upper respiratory specimen by Rapid immunoassayon 28-66-4255GZDBQ Ag IA.rapid Ql (Nph)NegativeAultman Alliance Community HospitalNo Panel Informationon 68-71-8304Havbirheh Type A (Rapid)NegativeAultman Alliance Community HospitalPO SARS CoV-2 AntigenNegativeAultman Alliance Community HospitalNo Panel Information Ordered By: Lissa Gifford on 54-86-2691Zranr Strep (POC)[facility] Alliance Community HospitalCNPNon 83-71-0102QKWATrienaeoi (ORAVON) MICHELLE RIVERA ([id number]) 1985 F Date Time Provider Department 07/05/23 FRANK NEGRON During your visit today, we recorded the following information about you: Yamile Chaney 07/05/2023 3:37 PM Signed I have tried to reach patient multiple times. Phone goes to [employer]. I sent 2 my chart messages. I [...] 02/22/2023 Encounter Status:Closed by YEISON MARTINIKENNYI on 07/05/23NoCorey Hospitalology Cervical or vaginal smear or scraping studyon 13-74-4508IBCB HealthcareCNOVon 29-20-4589CQFUPsxnxu Visit (ORAVON) MICHELLE RIVERA ([id number]) 1985 F Date Time Provider Department 05/03/23 9:45 AM FRANK NEGRON During your visit today, we recorded the following information about you: Weight Height 77.6 kg 1.664 m Frank Negron DO 05/03/2023 10:17 AM Signed Lateral epicondylitis of right elbow (primary encounter diagnosis) Minimally Invasive Tenotomy Informed Consent Consent Obtained: Written Coy Protocol A moment to CARE was completed. [...] A, DO 05/03/2023 9:[address] [facility] POST-PROCEDURE INSTRUCTIONS 1. WOUND CARE [...] Best way to connect would be via [employer] or directly call Yamile at [phone]. If unable to connect, please proceed to [...] and beyond. Thank you for choosing the [facility] Medical Orthopedic team for your care. Frank Negron D.O. Sports AND Medical Orthopaedics [place] (more content not included)...NormalUniversity [facility]als [facility] ELBOW RT (POC) HAYDEE USE ONLYon 77-14-4062Cvuerxddl ClinicCNTHERAPYon 05-73-6619DQFJNXRWX OT/PT/Speech Visit (CHRISTINA) MICHELLE RIVERA ([id number]) 1985 F Date Time Provider Department 03/21/23 8:00 AM MARCELINA MCMANUS Date Time Provider Department Center 03/21/2023 8:00 AM [id number] MCMANUS Reason for Visit: OT Discharge [750] [...] Take 40 mg by mouth once daily. NormalMckitrick HospitalCNTHERAPYon 43-89-4870OOLOYMMCHCI/PT/Speech Visit (LOOTRM) MIGUELMICHELLE ([id number]) 1985 F Date Time Provider Department 03/07/23 11:00 AM ESTEPHANIA WHITT Date Time Provider Department [place] 03/07/2023 11:00 AM [id number] WHITT Reason for Visit: Occupational Therapy [504] [...] 40 mg by mouth once daily. Letter [facility]-FairhillHERAPYon 82-56-0286DSDVHBSWX OT/PT/Speech Visit (LOOTRM) MIGUELMICHELLE ([id number]) 1985 Date Time Provider Department 03/01/23 8:00 AM ESTEPHANIA WHITT Date Time Provider Department [place] 03/01/2023 8:00 AM [id number]-WKYCBPUESMESTEPHANIA WHITT Reason for Visit: Occupational Therapy [504] [...] 40 mg by mouth once daily. Letter TextCleveland Clinic Mercy HospitalHERAPYon 62-01-6150HSHXFMFOI OT/PT/Speech Visit (LOOTRM) MICHELLE RIVERA ([id number]) 1985 F Date Time Provider Department 02/22/23 9:30 AM ESTEPHANIA WHITT Date Time Provider Department [place] 02/22/2023 9:30 AM [id number]-CCNFLZSBQIESTEPHANIA WHITT Reason for Visit: OT EVAL [748] [...] Whitt, OTR/L on 02/22/2023 10:21 AM Letter JoseAdams County HospitalNicci 32-65-0197XAABXdquca Visit (RAMÓN) MICHELLE RIVERA ([id number]) 1985 F Date Time Provider Department 02/14/23 11:15 AM FRANK NEGRON During your visit today, we recorded the following information about you: Frank Negron DO 02/14/2023 12:57 PM Signed [facility] Office Visit Documentation Note [facility] Sports Medicine Orthopaedic and Rheumatologic [place] REASON FOR VISIT / CHIEF COMPLAINT SERVICE DATE: February 14, 2023 PCP: Bernarda Pinto [facility] CHIEF COMPLAINT: Michelle Rivera is a [...] plan as detailed above. Frank Negron D.O. [facility] Orthopaedic and Rheumatologic [place] Team Physician, [facility] Consulting Physician, Napoleon Lexi Reddy, Flat Lock Operator [phone] Allergies As of Date: 02/14/2023 Noted Allergy Reaction PENICILLINS 08/20/2022 4 - Hives SULFA (SULFONAMIDE ANTIBIOTICS) 08/20/2022 4 - Hives Date Reviewed: 02/14/2023 Reviewed by: Edy Agarwal MA - Fully Assessed Reason for Visit: Established Patient [175] Primary Visit Diagnosis:Right elbow pain [M25.521] Other Visit Diagnosis:Lateral epicondylitis of right elbow [M77.11] Order(s):US ELBOW RT (POC) HAYDEE USE ONLY [7407467] Order #: [id number]. #:[id number]: 1 methylPREDNISolone (MEDROL DOSE-PACK) 4 mg Dose-PackAs Instructed per packageDisp: 1 tabletRfl: 0 CONSULT TO COAT FITTER [19990910] Order #: [id number]: 1 FUTURE Prescriptions as of 02/14/2023 - [...] Service: OFFICE/OUTPATIENT ESTABLISHED MOD MDM 30-39 MIN [35319] Encounter Status:Closed by FRANK NEGRON on 02/14/23[facility] ELBOW RT (POC) HAYDEE USE ONLYon 55-20-3613Pxnfgcfrc ClinicCNPNon 19-74-4493IOBWLpzrvebmj (ORQ) MICHELLE RIVERA ([id number]) 1985 F Date Time Provider Department 01/24/23 FRANK NEGRON ORQ During your visit today, we recorded the following information about you: Amy Elliott Pss 01/24/2023 10:32 AM Signed Pt requesting OT order for elbow pain. It is affecting her job. Pt would like to complete this with a facility in [place], [place]. Pt does not have the fax number but will try to get this and call us back. [place] OT phone [phone] Patient has been identified by name and birthdate. Duration of symptoms: N/A Person calling: self Call patient at: on cell [phone] (home) Was an appointment scheduled: No Closing statement: Results or non-symptom based questions: Thank you for calling [facility], your call will be returned within the [...] (None) Encounter Status:Closed by LESLY SHERMAN on 02/01/23[facility] HospitalMOISESOVnilam 04-84-7826PUWYXcxnca Visit (ORAVON) MCIHELLE RIVERA ([id number]) 1985 F Date Time Provider Department 12/20/22 3:00 PM FRANK NEGRON During your visit today, we recorded the following information about you: Frank Negron DO 12/20/2022 12:52 PM Signed Right elbow pain (primary encounter diagnosis) Lateral epicondylitis of both elbows Biologics Injection: R elbow Previously completed treatments/injections: Platelet Rich Plasma Informed Consent Consent Obtained: Written Coy Protocol A moment to CARE was completed. [...] Frank Negron DO Referring Provider: FRANK NEGRON [[id number]] Allergies As of Date: 12/20/2022 Noted Allergy Reaction PENICILLINS 08/20/2022 4 - Hives SULFA (SULFONAMIDE ANTIBIOTICS) 08/20/2022 4 - Hives Date Reviewed: 12/20/2022 Reviewed by: Edy Agarwal MA - Fully Assessed Reason for Visit: Established Patient [175] Primary Visit Diagnosis:Right elbow pain [M25.521] Other Visit Diagnosis:Lateral epicondylitis of both elbows [M77.11, M77.12] Order(s): ELBOW RT (POC) HAYDEE USE ONLY [[id number]] Order #: [id number]: 1 acetaminophen-codeine (TYLENOL-CODEINE #3) 300-30 mg per tabletTake 1 tablet by mouth every 4 hours as needed for up to 5 days.Disp: 12 tabletRfl: 0 Biologics Injection: R elbow [VIO049] Order #: [id number] [] lidocaine (PF) 10 mg/mL (1 %) [...] Inj-ORTHO Encounter Status:Closed by FRANK NEGRON on 12/20/22[facility] ELBOW RT (POC) HAYDEE USE ONLYon 40-24-7727Kpfhaejrx ClinicCNOVon 10-77-1208GSIHObejzu Visit (ORFWHP) MICHELLE RIVERA ([id number]) 1985 F Date Time Provider Department 12/04/22 10:00 AM FRANK NEGRON During your visit today, we recorded the following information about you: Frank Negron DO 12/04/2022 10:03 AM Signed [facility] Office Visit Documentation Note [facility] Sports Medicine Orthopaedic and Rheumatologic [place] HISTORY OF PRESENT ILLNESS (HPI) SERVICE DATE: [...] EXCEPT FOR MINIMAL LATERAL EPICONDYLAR ENTHESOPATHY BILATERALLY Retail Support Specialist: SHAYNE Transcribe Date/Time: Jul 20 2022 10:34A ... Last MRI Elbow - Impression Only MRI ELBOW WO IVCON RT Exam End: 09/11/2022 11:27 AM (Final result) Impression: IMPRESSION: 1. Tendinosis and a small partial tear of the common extensor tendon origin. Retail Support Specialist: SHAYNE Transcribe Date/Time: Sep 11 2022 11:42A... [...] with the treatment plan. Frank Negron D.O. [facility] Orthopaedic and Rheumatologic Soft Hat Binder, Tendon Center AND T.E.A.M. Program Team Physician, [facility] [employer] Consulting Physician, Napoleon Lexi Reddy, Flat Lock Operator [phone] Allergies As of Date: 12/04/2022 Noted Allergy [...] (more content not included)...NormalFairview HospitalUS ELBOW LTon 61-30-1001XO ELBOW LT* * *Final Report* * * [...] OF THE RADIAL COLLATERAL LIGAMENT, ALSO UNCHANGED. Retail Support Specialist: [facility] Transcribe Date/Time: Nov 16 2022 11:03A Dictated by : SETH JAQUEZ MD This examination was interpreted and the report reviewed and electronically signed by: SETH JAQUEZ MD on Nov 16 2022 1:00PM EST [id number]n HospitalOV 84-57-0805BFKW Office Visit (ORAVON) MICHELLE RIVERA ([id number]) 1985 F Date Time Provider Department 09/17/22 10:15 AM FRANK NEGRON During your visit today, we recorded the following information about you: Weight Height 117.9 kg 1.664 m Frnak Negron DO 09/17/2022 10:48 AM Signed [facility] Office Visit Documentation Note [facility] Sports Medicine Orthopaedic and Rheumatologic [place] HISTORY OF PRESENT ILLNESS (HPI) SERVICE DATE: [...] EXCEPT FOR MINIMAL LATERAL EPICONDYLAR ENTHESOPATHY BILATERALLY Retail Support Specialist: SHAYNE Transcribe Date/Time: Jul 20 2022 10:34A ... Last MRI Elbow - Impression Only MRI ELBOW WO IVCON RT Exam End: 09/11/2022 11:27 AM (Final result) Impression: IMPRESSION: 1. Tendinosis and a small partial tear of the common extensor tendon origin. Retail Support Specialist: SHAYNE Transcribe Date/Time: Sep 11 2022 11:42A... ASSESSMENT / PLAN CLINICAL IMPRESSION / ASSESSMENT: CLINICAL IMPRESSION / ASSESSMENT: (M77.11, M77.12) Lateral epicondylitis of both elbows (primary encounter diagnosis) (M25.522) Left elbow pain (M25.521) Right elbow pain (M79.7) Fibromyalgia RECOMMENDATION / PLAN: Counseling / Referral A total of 20 minutes were spent nmtr-fv-rwgb with the patient during this encounter and [...] include #1 bilateral PRP injections at $1500 tij-kd-wsnuir Option #2 bilateral minimally invasive percutaneous tendon debridement Option #3 surgical consult.. Follow up: Okay to send a MyChart note on my recommendation after ultrasound of the left lateral elbow for evaluation of chronicity of common extensor tendon injury. Written instructions (see patient instructions) and verbal health education given to patient. Patient verbalizes understanding and agrees with the treatment plan. Frank Negron D.O. [facility] Orthopaedic and Rheumatologic Soft Hat Binder, Tendon Center AND T.E.A.M. Program Team Physician, [facility] [employer] Consulting Physician, Napoleon Lexi Reddy, Flat Lock Operator [phone] Frank Negron DO 09/17/2022 10:35 AM Signed IMAGING AND LABORATORY Dr. Negron has requested further imaging to help coordinate your individualized plan of care. Most of these images will need to be appropriately scheduled. MRI/CT/Xray : Please stop at the desk manager to coordinate timing and scheduling of your image. IF your image is completed outside of the [facility], two steps will need to be taken and presented to Dr. Negron's office for review. 1. Gather a CD copy of your image at the time of service. 2. Gather Radiology Report, when available. Reports can be faxed to [phone]. [facility] Ultrasound : Please call [phone] to schedule your ultrasound appointment. LAB Requests: These can be completed at your nearest [facility] LAB facility. Please allow for up to one week for results to finalize. Follow up: You may request [employer] release of your imaging at 3 DAYS after your imaging appointment. Dr. Negron will often read the image and make a recommendation through [employer] Please understand, that due to the complexity of the presenting issue, many patients will need a physical examination even after their imaging, which would require a (more content not included)...Normal Mckitrick HospitalCNPNon 88-66-3375IUVRIvqwwoald (RULTTB) MICHELLE RIVERA ([id number]) 1985 F Date Time Provider Department 09/17/22 [...] for their [facility] US on 11/16 at [facility]. Allergies As of Date: 09/17/2022 Noted Allergy [...] (None) Encounter Status:Closed by KESHAWN CASTRO on 09/17/22[facility] HospitalMR Elbow - left WO contraston 54-26-4115SASLMTJBZX: 1. Large partial tear of the common extensor tendon origin with associated tearing of the radial collateral ligament. Retail Support Specialist: PSCB Transcribe Date/Time: Sep 11 2022 11:29A Dictated by : ASHLEY MCCARTY MD This examination was interpreted and the report reviewed and electronically signed by: ASHLEY MCCARTY MD on Sep 11 2022 11:33AM [facility] DIVISION OF RADIOLOGY* * *Final Report* [...] joint effusion nor synovitis. DIVISION OF RADIOLOGYProvider, [facility] Imaging [place] - 09/11/2022 * * *Final Report* * [...] associated tearing of the radial collateral ligament. Retail Support Specialist: SHAYNE Transcribe Date/Time: Sep 11 2022 11:29A Dictated by : ASHLEY MCCARTY MD This examination was interpreted and the report reviewed and electronically signed by: ASHLEY MCCARTY MD on Sep 11 2022 11:33AM EST [facility] Elbow - left WO contrastOrdered By: Ccf Provider on 11-14-6246Hcbvvnyyd ClinicMR Elbow - right WO contraston 24-65-3583PZPJFZLYVC: 1. Tendinosis and a small partial tear of the common extensor tendon origin. Retail Support Specialist: [facility] Transcribe Date/Time: Sep 11 2022 11:42A Dictated by : ASHLEY MCCARTY MD This examination was interpreted and the report reviewed and electronically signed by: ASHLEY MCCARTY MD on Sep 11 2022 11:47AM EST DIVISION OF RADIOLOGY* * *Final Report* * * DATE OF EXAM: Sep 11 2022 11:27AM [facility] 0189 - MRI ELBOW WO IVCON [...] joint effusion nor synovitis. DIVISION OF RADIOLOGYProvider, [facility] Imaging [place] - 09/11/2022 * * *Final Report* * * DATE OF EXAM: Sep 11 2022 11:27AM [facility] 0189 - MRI ELBOW WO IVCON [...] tear of the common extensor tendon origin. Retail Support Specialist: PSCB Transcribe Date/Time: Sep 11 2022 11:42A Dictated by : ASHLEY MCCARTY MD This examination was interpreted and the report reviewed and electronically signed by: ASHLEY MCCARTY MD on Sep 11 2022 11:47AM EST [facility] Elbow - right WO contrastOrdered By: Ccf Provider on 13-52-3112Vhtrwblxl ClinicMRI ELBOW WO IVCON LTon 10-11-5530FJE ELBOW WO IVCON LT* * *Final Report* * * DATE OF EXAM: Sep 11 2022 10:52AM [facility] 0188 - MRI ELBOW WO IVCON [...] associated tearing of the radial collateral ligament. Retail Support Specialist: SHAYNE Transcribe Date/Time: Sep 11 2022 11:29A Dictated by : ASHLEY MCCARTY MD This examination was interpreted and the report reviewed and electronically signed by: ASHLEY MCCARTY MD on Sep 11 2022 11:33AM EST [id number] HospitalMRI ELBOW WO IVCON RTon 20-86-0180IMF ELBOW WO IVCON RT* * *Final Report* [...] tear of the common extensor tendon origin. Retail Support Specialist: SHAYNE Transcribe Date/Time: Sep 11 2022 11:42A Dictated by : ASHLEY MCCARTY MD This examination was interpreted and the report reviewed and electronically signed by: ASHLEY MCCARTY MD on Sep 11 2022 11:47AM EST [id number] HospitalNo Panel Informationon 53-96-6923Osojdegmh Study observation (narrative)[facility]25([place])D3 SerPl-mCncon 76-04-963839381840-yrcntnhmsjurls D3 [Mass/Vol]37.9 ng/nMOgaiue16.0-80.0 [facility] HospitalComment on above:Order Comment: Specimen Type: BLOOD SPECIMEN Ordering Facility: [facility] Address: [address] [place], [place] [address]Result Comment: Classification of 25 [place] Vitamin D status: Deficiency/Insufficiency: < or = 30 ng/ml. Sufficiency/Optimal Levels: 31-80 ng/mL Toxicity: > 100 ng/mL. Test performed by chemiluminescent immunoassay.Performed By: #### 1989-3 #### [facility] CLIA [id number] [address] [place] [address] STATES OF [facility] BY IFA WITH REFLEXon 22-02-1785Wyhctou Ab IF (S) [Titer]NegativeNormalNegativeElizabeth HospitalComment on above:Order Comment: Specimen Type: BLOOD SPECIMEN Ordering Facility: [facility] Address: [address] [place], [place] [address]Result Comment: Anti-nuclear antibody test is used as an aid in diagnosis of systemic autoimmune diseases. Where positive and clinically warranted, follow-up using disease-specific testing is recommended. Low positive titers are not uncommon with advanced age, certain chronic infections, and malignancies among others. Test methodology: Indirect fluorescence immunoassay (IFA) using HEp-2 cells. Performed By: #### ANAIFR #### [facility] CLIA [id number] [address] [place] [address] OF [facility]ISBURGC-REACTIVE PROTEIN (CRP)on 91-00-3157PGV [Mass/Vol]2.8 mg/dLHigh<0.9 mg/dLSelect Medical [facility] W Auto Differential panel (Bld)on 20-53-2026Brnulaqmu (Bld) [#/Vol]0.03 10*3/uLNormal <0.11Avon HospitalComment on above:Order Comment: Specimen Type: BLOOD SPECIMEN Ordering Facility: [facility] Address: [address] [place] [address]Performed By: #### 12074-0 #### [facility] [place] [id number] [address] [place] [address] [place] OF AMERICABasophils/100 WBC (Bld)0.1 %NormalAv HospitalComment on above:Order Comment: Specimen Type: BLOOD SPECIMEN Ordering Facility: [facility] Address: [address] [place], [place] [address]Performed By: #### 75802-5 #### [facility] [place] [id number] [place] [address] [place] OF AMERICADifferential cell count method Nom (Bld) AutoNormalAvon HospitalComment on above:Order Comment: Specimen Type: BLOOD SPECIMEN Ordering Facility: [facility] Address: [address] [place], [place] [address]Performed By: #### 74454-0 #### [facility] [place] [id number] [place] [address] [place] OF AMERICAEosinophils (Bld) [#/Vol]10*3/uLNormal <0.46Av HospitalComment on above:Order Comment: Specimen Type: BLOOD SPECIMEN Ordering Facility: [facility] Address: [address] [place], [place] [address]Performed By: #### 55310-7 #### [facility] [place] [id number] [place] [address] [place] AMERICAEosinophils/100 WBC (Bld)0.1 %NormalAv HospitalComment on above:Order Comment: Specimen Type: BLOOD SPECIMEN Ordering Facility: [facility] Address: [address] [place], [place] [address]Performed By: #### 60059-4 #### [facility] [place] [id number] [place] [address] [place] OF AMERICAErythrocyte distribution width (RBC) [Ratio]13.1 %Uiyqdb62.5-15.0Av HospitalComment on above:Order Comment: Specimen Type: BLOOD SPECIMEN Ordering Facility: [facility] Address: [address]Performed By: #### 51279-1 #### [facility] [place] [id number] [address] [place] [address] [place] OF AMERICAHematocrit (Bld) [Volume fraction]40.2 % Wmqknc27.0-46.0Av HospitalComment on above:Order Comment: Specimen Type: BLOOD SPECIMEN Ordering Facility: [facility] Address: [address] [place], [place] [address]Performed By: #### 89309-8 #### [facility] [place] [id number] [address] [place] [id number] [place] OF AMERICAHemoglobin (Bld) [Mass/Vol]13.0 g/dL Ulnzuo15.5-15.5Avo HospitalComment on above:Order Comment: Specimen Type: BLOOD SPECIMEN Ordering Facility: [facility] Address: [address] [place], [place] [address]Performed By: #### 81283-9 #### [facility] IA [id number] [address] [place] [address] [place] OF AMERICAImmature granulocytes (Bld) [#/Vol]0.13 10*3/uLHigh<0.10Avo HospitalComment on above:Order Comment: Specimen Type: BLOOD SPECIMEN Ordering Facility: [facility] Address: [address] [place], [place] [address]Performed By: #### 04339-7 #### [facility] IA [id number] [address] [place] [address] [place] AMERICAImmature granulocytes/100 WBC (Bld)0.6 % NormalAv HospitalComment on above:Order Comment: Specimen Type: BLOOD SPECIMEN Ordering Facility: [facility] Address: [address] [place], [place] [address]Performed By: #### 62343-9 #### [facility] [place] [id number] [address] [place] [address] [place] OF AMERICALymphocytes (Bld) [#/Vol]1.68 10*3/uL Normal1.00-4.00Av HospitalComment on above:Order Comment: Specimen Type: BLOOD SPECIMEN Ordering Facility: [facility] Address: [address] [place], [place] [address]Performed By: #### 94366-1 #### [facility] [place] [id number] [address] [place] [address] [place] [facility] GENERAL HOSPITALLymphocytes/100 WBC (Bld)7.9 %NormalAv HospitalComment on above:Order Comment: Specimen Type: BLOOD SPECIMEN Ordering Facility: [facility] Address: [address] [place], [place] [address]Performed By: #### 62367-2 #### [facility] [place] [id number] [place] [id number] [place] [address] (RBC) [Entitic mass]28.9 pgNormal 26.0-34.0Av HospitalComment on above:Order Comment: Specimen Type: BLOOD SPECIMEN Ordering Facility: [facility] Address: [address] [place], [place] [address]Performed By: #### 94610-5 #### [facility] IA [id number] [address] [place], [place] [id number] [place] [address] (RBC) [Mass/Vol]32.3 g/dLNormal 30.5-36.0Av HospitalComment on above:Order Comment: Specimen Type: BLOOD SPECIMEN Ordering Facility: [facility] Address: [address] [place], [place] [address]Performed By: #### 43794-4 #### [facility] IA [id number] (RBC) [Entitic vol]89.3 fLNormal 80.0-100.0Av HospitalComment on above:Order Comment: Specimen Type: BLOOD SPECIMEN Ordering Facility: [facility] Address: [address] [place], [place] [address]Performed By: #### 54935-4 #### [facility] IA [id number] [address] [place] [address] [place] AMERICAMonocytes (Bld) [#/Vol]1.22 10*3/uLHigh <0.87Av HospitalComment on above:Order Comment: Specimen Type: BLOOD SPECIMEN Ordering Facility: [facility] Address: [address] [place], [place] [address]Performed By: #### 12219-6 #### [facility] IA [id number] [address] [place] [address] [place] AMERICAMonocytes/100 WBC (Bld)5.7 %NormalAv HospitalComment on above:Order Comment: Specimen Type: BLOOD SPECIMEN Ordering Facility: [facility] Address: [address] [place], [place] [address]Performed By: #### 76228-9 #### [facility] IA [id number] [address] [place] [address] [place] AMERICANeutrophils (Bld) [#/Vol]18.27 10*3/uL High1.45-7.50Av HospitalComment on above:Order Comment: Specimen Type: BLOOD SPECIMEN Ordering Facility: [facility] Address: [address] [place], [place] [address]Performed By: #### 95240-8 #### [facility] IA [id number] [address] [place] [address] [place] AMERICANeutrophils/100 WBC (Bld)85.6 %NormalAv HospitalComment on above:Order Comment: Specimen Type: BLOOD SPECIMEN Ordering Facility: [facility] Address: [address] [place], [place] [address]Performed By: #### 32420-0 #### [facility] IA [id number] [address] [place] [address] [place] OF AMERICANucleated RBC (Bld) [#/Vol]10*3/uLNormal <0.01Av HospitalComment on above:Order Comment: Specimen Type: BLOOD SPECIMEN Ordering Facility: [facility] Address: [address] [place], [place] [address]Performed By: #### 22049-1 #### [facility] IA [id number] [facility] [place] [place] [address] [place] AMERICANucleated RBC/100 WBC (Bld) [Ratio]0.0 /100 WBCNormalAvon HospitalComment on above:Order Comment: Specimen Type: BLOOD SPECIMEN Ordering Facility: [facility] Address: [address] [place], [place] [address]Performed By: #### 82234-1 #### [facility] IA [id number] [address] [place] [address] [place] AMERICAPlatelet mean volume (Bld) [Entitic vol] 9.1 fLNormal9.0-12.7Avon HospitalComment on above:Order Comment: Specimen Type: BLOOD SPECIMEN Ordering Facility: [facility] Address: [address] [place], [place] [address]Performed By: #### 06299-0 #### [facility] IA [id number] [address] [place] [address] [place] AMERICAPlatelets (Bld) [#/Vol]358 10*3/uLNormal 150-400Avon HospitalComment on above:Order Comment: Specimen Type: BLOOD SPECIMEN Ordering Facility: [facility] Address: [address] [place], [place] [address]Performed By: #### 92929-6 #### [facility] IA [id number] [address] [facility] [place] [address] [place] AMERICARBC (Bld) [#/Vol]4.50 10*6/uLNormal 3.90-5.20Avon HospitalComment on above:Order Comment: Specimen Type: BLOOD SPECIMEN Ordering Facility: [facility] Address: [address] [place], [place] [address]Performed By: #### 81305-7 #### [facility] IA [id number] [address] [facility] [place] [address] [place] AMERICAWBC (Bld) [#/Vol]21.35 10*3/uLHigh 3.70-11.00Elizabeth HospitalComment on above:Order Comment: Specimen Type: BLOOD SPECIMEN Ordering Facility: [facility] Address: [place] [address]Ipgvxgthc By: #### 02271-2 #### [facility] CLIA [id number] [facility] [place] [address] [place] [facility] MIAMISBURGBasophils (Bld) [#/Vol]0.03 10*3/uL<0.11 k/uLMount Carmel Health SystemBasophils/100 WBC (Bld)0.1 %[facility] SystemDifferential cell count method Nom (Bld)AutoCleveland ClinicEosinophils (Bld) [#/Vol]<0.46 k/uLClewestern reserve hospital ClinicEosinophils/100 WBC (Bld)0.1 %[facility] SystemErythrocyte distribution width (RBC) [Ratio]13.1 %11.5 - 15.0 %[facility] SystemHematocrit (Bld) [Volume fraction]40.2 %36.0 - 46.0 %[facility] SystemHemoglobin (Bld) [Mass/Vol]13.0 g/dL11.5 - 15.5 g/dLMount Carmel Health SystemImmature granulocytes (Bld) [#/Vol]0.13 10*3/uLHigh<0.10 k/uLMount Carmel Health SystemImmature granulocytes/100 WBC (Bld)0.6 %[facility] Health SystemLymphocytes (Bld) [#/Vol]1.68 10*3/uL1.00 - 4.00 k/uL [facility] SystemLymphocytes/100 WBC (Bld)7.9 %[facility] Health SystemMCH (RBC) [Entitic mass]28.9 pg26.0 - 34.0 pgCleveland Worthington Medical CenterMCHC (RBC) [Mass/Vol]32.3 g/dL30.5 - 36.0 g/dLMount Carmel Health SystemMCV (RBC) [Entitic vol]89.3 fL80.0 - 100.0 fLCleveland ClinicMonocytes (Bld) [#/Vol]1.22 10*3/uLHigh<0.87 k/[facility] Monocytes/100 WBC (Bld)5.7 %[facility] Health SystemNeutrophils (Bld) [#/Vol]18.27 10*3/uLHigh1.45 - 7.50 k/[facility] HospitalNeutrophils/100 WBC (Bld)85.6 % [facility] SystemNucleated RBC (Bld) [#/Vol]<0.01 k/uLMount Carmel Health SystemNucleated RBC/100 WBC (Bld) [Ratio]0.0 /100 WBCNapoleon ClinicPlatelet mean volume (Bld) [Entitic vol]9.1 fL9.0 - 12.7 fLClevelquorum health ClinicPlatelets (Bld) [#/Vol]358 10*3/uL150 - 400 k/[facility] ClinicRBC (Bld) [#/Vol]4.50 10*6/uL3.90 - 5.20 m/[facility] HospitalWBC (Bld) [#/Vol]21.35 10*3/uLHigh3.70 - 11.00 k/[facility] HospitalCRP SerPl-mCncon 28-05-7247QSA [Mass/Vol]2.8 mg/dLHigh<0.9[facility] Comment on above:Order Comment: Specimen Type: BLOOD SPECIMEN Ordering Facility: [facility] Address: [address] [place], [place] [address]Performed By: #### 10402-3, 1988-01, 3083-09 #### [facility] CLIA [id number] [address] [place], [place] [address] [place] [address] STATES OF AMERICAComprehensive metabolic 2000 panelon 25-80-8040Zfbbgfn [Mass/Vol]4.0 g/dLNormal3.9-4.9AvoParkview LaGrange HospitalComment on above: Order Comment: Specimen Type: BLOOD SPECIMEN Ordering Facility: [facility] Address: [address] [place], [place] [address]Performed By: #### 09216-7, 1988-01, 3083-09 #### [facility] CLIA [id number] [address] [place] [address] [place] AMERICAALP [Catalytic activity/Vol]92 U/LNormal 34-123Avon HospitalComment on above:Order Comment: Specimen Type: BLOOD SPECIMEN Ordering Facility: [facility] Address: [address] [place], [place] [address]Performed By: #### 52546-6, 1988-01, 3083-09 #### [facility] CLIA [id number] [address] [place] [address] [place] AMERICAALT [Catalytic activity/Vol]32 U/LNormal 7-38Avon HospitalComment on above:Order Comment: Specimen Type: BLOOD SPECIMEN Ordering Facility: [facility] Address: [address] [place], [place] [address]Performed By: #### 73428-7, 1988-01, 3083-09 #### [facility] CLIA [id number] [address] [place] [address] [place] AMERICAAnion gap [Moles/Vol]9 mmol/LNormal9-18 Lisa HospitalComment on above:Order Comment: Specimen Type: BLOOD SPECIMEN Ordering Facility: [facility] Address: [address] [place], [place] [phone] By: #### 08324-0, 1988-01, 3083-09 #### [facility] CLIA [id number] [address] [place] [address] [place] AMERICAAST [Catalytic activity/Vol]16 U/LNormal 13-35Av HospitalComment on above:Order Comment: Specimen Type: BLOOD SPECIMEN Ordering Facility: [facility] Address: [address] [place], [place] [phone] By: #### 10516-1, 1988-01, 3083-09 #### [facility] CLIA [id number] [address] [place] [address] [place] AMERICABilirubin [Mass/Vol]0.3 mg/dLNormal 0.2-1.3Avon HospitalComment on above:Order Comment: Specimen Type: BLOOD SPECIMEN Order[facility] Address: [address]Performed By: #### 76040-0, 1988-01, 3083-09 #### [facility] CLIA [id number] [address] [place] [address] [place] AMERICACalcium [Mass/Vol]8.6 mg/dLNormal8.5-10.2 Elizabeth HospitalComment on above:Order Comment: Specimen Type: BLOOD SPECIMEN Ordering Facility: [facility] Address: [address] [place], [place] [address]Performed By: #### 83124-7, 1988-01, 3083-09 #### [facility] CLIA [id number] [address] [place] [address] [place] AMERICAChloride [Moles/Vol]98 mmol/UCwjemm33-871 Elizabeth HospitalComment on above:Order Comment: Specimen Type: BLOOD SPECIMEN Ordering Facility: [facility] Address: [address] [place], [place] [address]Performed By: #### 84657-8, 1988-01, 3083-09 #### [facility] CLIA [id number] [place] [address] [place] AMERICACO2 [Moles/Vol]25 mmol/QCmeuhg67-00Tgub HospitalComment on above:Order Comment: Specimen Type: BLOOD SPECIMEN Ordering Facility: [facility] Address: [address] [place], [place] [address]Performed By: #### 13057-1, 1988-01, 3083-09 #### [facility] CLIA [id number] [place] [address] [place] AMERICACreatinine [Mass/Vol]0.65 mg/dLNormal 0.58-0.96Elizabeth HospitalComment on above:Order Comment: Specimen Type: BLOOD SPECIMEN Ordering Facility: [facility] Address: [address]Performed By: #### 05198-9, 1988-01, 3083-09 #### [facility] CLIA [id number] [address] [place] [address] [place] AMERICAESTIMATED GLOMERULAR FILTRATION SELX662 mL/min/1.73m???Normal>=60AvTerre Haute Regional HospitalComment on above:Order Comment: Specimen Type: BLOOD SPECIMEN Ordering Facility: [facility] Address: [address] [place], [place] [phone] Comment: Estimated Glomerular Filtration Rate (eGFR) is [...] not accurately reflect actual GFR.Performed By: #### 48075-4, 3083-09 #### [facility] CLIA [id number] [address] [place] [address] [place] AMERICAGlucose [Mass/Vol]107 mg/wYCgxn72-30Tnjt HospitalComment on above:Order Comment: Specimen Type: BLOOD SPECIMEN Ordering Facility: [facility] Address: [address] [place], [place] [address]Result Comment: The [place] Diabetes Association (ADA) provides guidance for cutoff [...] Standards of Medical Care in Diabetes 2016, [place] [employer] Association. Diabetes Care. 2016.39(Suppl 1).Performed By: #### 38917-9, 1988-01, 3083-09 #### [facility] CLIA [id number] [address] [place] [address] [place] AMERICAPotassium [Moles/Vol]4.2 mmol/LNormal 3.7-5.1Avon HospitalComment on above:Order Comment: Specimen Type: BLOOD SPECIMEN Ordering Facility: [facility] Address: [address] [place], [place] [address]Performed By: #### 23721-1, 1988-01, 3083-09 #### [facility] IA [id number] [address] [place] [address] [place] AMERICAProtein [Mass/Vol]7.1 g/dLNormal6.3-8.0 Elizabeth HospitalComment on above:Order Comment: Specimen Type: BLOOD SPECIMEN Ordering Facility: [facility] Address: [address] [place], [place] [address]Performed By: #### 24281-9, 1988-01, 3083-09 #### [facility] IA [id number] [place] [address] [place] AMERICASodium [Moles/Vol]132 mmol/MKag618-892 Elizabeth HospitalComment on above:Order Comment: Specimen Type: BLOOD SPECIMEN Ordering Facility: [facility] Address: [address] [place], [place] [address]Performed By: #### 93763-2, 1988-01, 3083-09 #### [facility] IA [id number] [place] [address] [place] AMERICAUrea nitrogen [Mass/Vol]17 mg/dLNormal 7-21Elizabeth HospitalComment on above:Order Comment: Specimen Type: BLOOD SPECIMEN Ordering Facility: [facility] Address: [address] [place], [place] [address]Performed By: #### 91168-1, 1988-01, 3083-09 #### [facility] IA [id number] [address] [place] [address] [place] AMERICAAlbumin [Mass/Vol]4.0 g/dL3.9 - 4.9 g/dL Napoleon ClinicALP [Catalytic activity/Vol]92 U/L34 - 123 U/LCleveland Clinic ALT [Catalytic activity/Vol]32 U/L7 - 38 U/LCleveland ClinicAnion gap [Moles/Vol]9 mmol/L9 - 18 mmol/LCleveland ClinicAST [Catalytic activity/Vol]16 U/L13 - 35 U/LCleveland ClinicBilirubin [Mass/Vol]0.3 mg/dL0.2 - 1.3 mg/dL [facility] SystemCalcium [Mass/Vol]8.6 mg/dL8.5 - 10.2 mg/dLMount Carmel Health System Chloride [Moles/Vol]98 mmol/L97 - 105 mmol/LCleveland ClinicCO2 [Moles/Vol]25 mmol/L22 - 30 mmol/LCleveland ClinicCreatinine [Mass/Vol]0.65 mg/dL0.58 - 0.96 mg/dLMount Carmel Health SystemEstimated Glomerular Filtration Gpnj848 mL/min/1.73m>=60 mL/min/1.73mCleveland Worthington Medical CenterGlucose [Mass/Vol]107 mg/zZXfns31 - 99 mg/dL [facility] SystemPotassium [Moles/Vol]4.2 mmol/L3.7 - 5.1 mmol/LCleveland [facility]thington [facility] Center Protein [Mass/Vol]7.1 g/dL6.3 - 8.0 g/dLAkron Children's Hospitalodium [Moles/Vol]132 mmol/FNya662 - 144 mmol/LCleveland Worthington Medical CenterUrea nitrogen [Mass/Vol]17 mg/dL7 - 21 mg/dLMount Carmel Health SystemCyclic citrullinated peptide IgG Qnon 29-10-7729GWK ANTIBODY IGG QUALITATIVENegativeNormalNegativeAvon HospitalComment on above: Order Comment: Specimen Type: BLOOD SPECIMENOrdering Facility: [facility] Address:[address] [place], [place] [address]Performed By: #### 76202-7, 25115-5 ####[facility] [id number] [address] OF AMERICAESR Westergren method (Bld) [Velocity]on 15-79-3466DWI (Bld) [Velocity]10 mm/hNormal0-20AvTerre Haute Regional Hospital Comment on above:Order Comment: Specimen Type: BLOOD SPECIMEN [facility] Address: [address] [place], [place] [address]Performed By: #### 4537-7 #### [facility] CLIA [id number] [address] [place] [address] [place] AMERICARheumatoid fact SerPl-aCncon 40-01-5287Geemgtabim factor Qn[IU]/mLNormal<16Avon HospitalComment on above: Order Comment: Specimen Type: BLOOD SPECIMEN Order[facility] Address: [address] [place], [place] [address]Performed By: #### 07408-2 #### [facility] CLIA [id number] [address] [place] [address] [place] AMERICAURIC ACID BLOODon 08-20-2022 Urate [Mass/Vol]2.9 mg/dL2.5 - 6.6 mg/dLMount Carmel Health SystemUrate SerPl-mCncon 93-24-8103Qrgby [Mass/Vol]2.9 mg/dLNormal2.5-6.6Avon HospitalComment on above: Order Comment: Specimen Type: BLOOD SPECIMEN Order[facility] Address: [address] [place], [place] [address]Performed By: #### 93786-0, 1987-, 308- #### [facility] CLIA [id number] [address] [place] [address] [place] AMERICAXR CERVICAL 4V AP/LAT/OBLon 87-88-2115LQ CERVICAL 4V AP/LAT/OBL* * *Final Report* * [...] osseous abnormality. Mild degenerative changes, as described. Retail Support Specialist: SHAYNE Transcribe Date/Time: Aug 20 2022 11:28A Dictated by : MAXIME DEXTER MD This examination was interpreted and the report reviewed and electronically signed by: ALIZE SANCHEZ MD on Aug 20 2022 4:05PM EST [id number] HospitalcCP IgG SerPl-aCncon 45-71-8215Rwqxju citrullinated peptide IgG Qn<15Normal<20Avon HospitalComment on above:Order Comment: Specimen Type: BLOOD SPECIMENOrdering Facility: [facility] Address:[address] [place], [place] [phone] By: #### 64077-7, 80150-0 ####[facility] LABIA [id number] [place] [address] [place] AMERICAdsDNA Ab Ser IA-aCncon 78-91-5108ALA double strand Ab IA Qn (S)<12Normal<30Avon HospitalComment on above:Order Comment: Specimen Type: BLOOD SPECIMENOrdering Facility: [facility] Address:[address] [place], [place] [phone] Comment: Negative for ds DNA Antibodies. <30 IU/mL Negative 30-74 IU/mL Equivocal >74 IU/mL PositivePerformed By: #### 27131-7, 50464-0 ####[facility] [id number] [place] [address] [place] AMERICANo Panel Informationon 70-43-2007APDWIIRXLQ: NORMAL EXCEPT FOR MINIMAL LATERAL EPICONDYLAR ENTHESOPATHY BILATERALLY Retail Support Specialist: [facility] Transcribe Date/Time: Jul 20 2022 10:34A Dictated by : GERBER CASILLAS MD This examination was interpreted and the report reviewed and electronically signed by: GERBER CASILLAS MD on Jul 20 2022 10:35AM [facility] DIVISION OF RADIOLOGYRadiology Study observation (narrative)[facility] Panel InformationOrdered By: [facility] Provider on 43-59-5096Zyoeswnkn ClinicXR Elbow - left AP and Lateral [...] No other significant abnormality. DIVISION OF RADIOLOGYProvider, [facility] Imaging [place] - 07/20/2022 * * *Final Report* * [...] EXCEPT FOR MINIMAL LATERAL EPICONDYLAR ENTHESOPATHY BILATERALLY Retail Support Specialist: SHAYNE Transcribe Date/Time: Jul 20 2022 10:34A Dictated by : GERBER CASILLAS MD This examination was interpreted and the report reviewed and electronically signed by: GERBER CASILLAS MD on Jul 20 2022 10:35AM [facility] OhioXR Elbow - right AP and Lateral and [...] No other significant abnormality. DIVISION OF RADIOLOGYProvider, [facility] [place] - 07/20/2022 * * *Final Report* * [...] EXCEPT FOR MINIMAL LATERAL EPICONDYLAR ENTHESOPATHY BILATERALLY Retail Support Specialist: SHAYNE Transcribe Date/Time: Jul 20 2022 10:34A Dictated by : GERBER CASILLAS MD This examination was interpreted and the report reviewed and electronically signed by: GERBER CASILLAS MD on Nov 18 2022 10:35AM [facility] OhioPTH INTACTon 47-32-7770CKV, Mrcxji01 pg/mLCritically xwv64-76Lld [facility] HospitalComment on above:Performed By: #### PTHINT #### [facility] [address] [place] [address] Dr. Grere Dixon 25-[place] LABCORPon 46-20-1057Fpbvmth D, 25-Xbqvjjd90.4 ng/mL Wpdqqj51.0-100.0The [facility] HospitalComment on above:Result Comment: Vitamin D deficiency has been defined by the [place] of Medicine and an Endocrine Society practice guideline as a level of serum 25-OH vitamin D less than 20 ng/mL (1,2). The Endocrine Society went on to further define vitamin D insufficiency as a level between 21 and 29 ng/mL (2). 1. IOM ([place] of Medicine). 2010. Dietary reference intakes for calcium and D. Diaz [place]: The National Academies Press. 2. Willem MF, Sadie NC, Nova SHEPARD, et al. Evaluation, treatment, and prevention of vitamin D deficiency: an Endocrine Society clinical practice guideline. JCEM. 2010; 96(7):1911-30.Performed By: #### VITADLC #### [facility] [address] [place] [address] Dr. Greer NguyenCALCIUMon 18-50-7368Stxzhke [Mass/Vol]8.1 mg/dLCritically low 8.5-10.1The [facility] HospitalComment on above:Performed By: #### CA, TSH, LIVER, LIPID #### [facility] [address] [place] [address] Dr. Greer NguyenCBC AUTO DIFFon 86-64-0350UZXQ #0.0 103/ulNormal0.0-0.1The [facility] HospitalComment on above:Performed By: #### CBC #### [facility] [address] [place] [address] Dr. Greer NguyenBasophils/100 WBC (Bld)0.4 %Normal0.2-2.0The [facility] Comment on above:Performed By: #### CBC #### [facility] [address] [place] [address] Dr. Greer Contreras #0.1 103/ulNormal0.0-0.7The [facility] HospitalComment on above: Performed By: #### CBC #### [facility] [address] [place] [address] Dr. Greer Woodsosinophils/100 WBC (Bld)0.7 %Critically low0.9-7.0The [facility] HospitalComment on above:Performed By: #### CBC #### [facility] [address] [place] [address] Dr. Greer Woodsrythrocyte distribution width (RBC) [Ratio]13.3 %Sztlcp93.0-15.0 The [facility] on above:Performed By: #### CBC #### [facility] [address] [place] [address] Dr. Greer NguyenHematocrit (Bld) [Volume fraction]36.6 %Hlywmk23.0-48.0The [facility] HospitalComment on above:Performed By: #### CBC #### [facility] [address] [place] [address] Dr. Greer NguyenHemoglobin (Bld) [Mass/Vol]12.1 g/eXZdwqjr80.0-16.0The [facility] Hospitalment on above:Performed By: #### CBC #### [facility] [address] [place] [address] Dr. Greer Stewart #0.01 10e3/ulNormal0.00-0.03The [facility] HospitalComment on above:Performed By: #### CBC #### [facility] [address] [place] [address] Dr. Greer Stewart %0.1 %Normal0.0-0.5The [facility] on above: Performed By: #### CBC #### [facility] [address] [place] [address] Dr. Greer GuevaraH #2.3 103/ulNormal1.2-3.8The [facility] HospitalComment on above:Performed By: #### CBC #### [facility] [address] [address] [address] Greer Shanemphocytes/100 WBC (Bld)28.4 %Bzisfl08.5-60.0The [facility] HospitalComment on above:Performed By: #### CBC #### [facility] [address] [place] [address] Dr. Greer BurgerUAL DIFF REQNONormalThe [facility] HospitalComment on above: Performed By: #### CBC #### [facility] [address] [place] [address] Dr. Greer Del Angel (RBC) [Entitic mass]29.4 kaXobwma97.7-34.0The [facility] HospitalComment on above:Performed By: #### CBC #### [facility] [address] [place] [address] Dr. Greer Del Angel (RBC) [Mass/Vol]33.1 g/xJHzrygj74.9-35.2The [facility] HospitalComment on above:Performed By: #### CBC #### [facility] [address] [place] [address] Dr. Greer Del Angel (RBC) [Entitic vol]88.8 sGDxuupv45.0-99.0The [facility] HospitalComment on above:Performed By: #### CBC #### [facility] [address] [place] [address] Dr. Greer Deras #0.5 103/ulNormal0.3-0.8The [facility] HospitalComment on above:Performed By: #### CBC #### [facility] [address] [place] [address] Dr. Greer Morenoocytes/100 WBC (Bld)6.0 %Normal1.7-12.0The [facility] on above:Performed By: #### CBC #### [facility] [address] [place] [address] Dr. Greer Mead #5.2 103/ulNormal1.4-6.5The [facility] Hospitalment on above:Performed By: #### CBC #### [facility] [address] [address] [address] Greer NguyenNeutrophils/100 WBC (Bld)64.4 %Jupota87.0-75.0The [facility] on above:Performed By: #### CBC #### [facility] [address] [address] [address] Greer NguyenPlatelet mean volume (Bld) [Entitic vol]8.8 fLCritically low 9.5-13.5The [facility] on above:Performed By: #### CBC #### [facility] [address] [place] [address] Dr. Greer NguyenPLT348 103/xqSbsaih838-305Gcg [facility] on above: Performed By: #### CBC #### [facility] [address] [place] [address] Dr. Greer NguyenRBC4.12 106/ulCritically low4.20-5.40The [facility] on above:Performed By: #### CBC #### [facility] [address] [place] [address] Dr. Greer NguyenWBC8.1 103/ulNormal4.0-11.0[facility] on above: Performed By: #### CBC #### [facility] [address] [place] [address] Dr. Greer NguyenFERRITINon 39-44-5526Wldussrl [Mass/Vol]95.0 ng/mLNormal6.2-137.0 The [facility] on above:Performed By: #### FERR, B12FOL, FETIBC #### [facility] [address] [place] [address] Dr. Greer NguyenGLYCOHEMOGLOBIN A1Con 13-63-8383WPP RECOMMENDATIONSEE BELOWNormal [facility] on above:Result Comment: ADA RECOMMENDED LIMIT 4.0 - 6.0 ADA THERAPEUTIC TARGET < 7.0 ACTION SUGGESTED > 7.0Performed By: #### A1C #### [facility] [address] [place] [address] Dr. Greer NguyenGlucose [Mass/Vol]117 mg/dLUniversity Hospitals Samaritan Medical CenterComment on above:Performed By: #### A1C #### [facility] [address] [place] [address] Dr. Greer NguyenHbA1c (Bld) [Mass fraction]5.7 %Normal4.5-6.2Aden[facility]ayette Medical CenterComment on above:Performed By: #### A1C #### [facility] [address] [place] [address] Dr. Greer Barclay AND TIBCon 05-04-2022% CYEKJIGCPH00.2 %NormalAdena Fayette Medical CenterComment on above:Performed By: #### FERR, B12FOL, FETIBC #### [facility] [address] [place] [address] Dr. Greer Barclay [Mass/Vol]63.0 ug/yBSpvggv32.0-170.0[facility] Comment on above:Performed By: #### FERR, B12FOL, FETIBC #### [facility] [address] [place] [address] Dr. Greer VillarC OLESMT170.0 ug/qKBuomev483.0-450.0[facility] Comment on above:Performed By: #### FERR, B12FOL, FETIBC #### [facility] [address] [place] [address] Dr. Greer NguyenLIPID PROFILEon 82-48-1387ASXY-HDL RATIO NORMSMercy Health Allen HospitalComment on above:Result Comment: 3.3 - 4.4 LOW RISK 4.4 - 7.1 AVERAGE RISK 7.1 - 11.0 MODERATE RISK >11.0 HIGH RISKPerformed By: #### CA, TSH, LIVER, LIPID #### [facility] [address] [place] [address] Dr. Greer NguyenCholesterol [Mass/Vol]144 mg/dLNormal<=200[facility] Comment on above:Performed By: #### CA, TSH, LIVER, LIPID #### [facility] [address] [address] [address] Greer Zhongesterol in HDL [Mass/Vol]45 mg/wESkvstl96-44OskAdena Fayette Medical CenterComment on above:Performed By: #### CA, TSH, LIVER, LIPID #### [facility] [address] [address] [address] Greer NguyenCholesterol in LDL [Mass/Vol]92.8 mg/dLNoMercy Health Clermont HospitalComment on above:Performed By: #### CA, TSH, LIVER, LIPID #### [facility] [address] [address] [address] Greer Sheth.total/Cholesterol in HDL [Mass ratio]3.2 {ratio} NormalThe [facility] HospitalComment on above:Performed By: #### CA, TSH, LIVER, LIPID #### [facility] [address] [address] [address] Greer Forrester NORMAL> or = 60 mg/dl - LOW CARDIOVASCULAR RISK <40 mg/dl - HIGH CARDIOVASCULAR RISKUniversity Hospitals Samaritan Medical CenterComment on above:Performed By: #### CA, TSH, LIVER, LIPID #### [facility] [address] [address] [address] Greer Bolanos CALC NORMALSEE BELOWUniversity Hospitals Samaritan Medical CenterComment on above:Result Comment: <100 mg/dl OPTIMAL 100 - 129 mg/dl NEAR OR ABOVE OPTIMAL 130 - 159 mg/dl BORDERLINE HIGH 160 - 189 mg/dl HIGH >190 mg/dl VERY HIGH Performed By: #### CA, TSH, LIVER, LIPID #### [facility] [address] [address] [address] Greer NguyenTriglyceride [Mass/Vol]31 mg/dLNormal<=150[facility] Comment on above:Performed By: #### CA, TSH, LIVER, LIPID #### [facility] [address] [address] [address] Greer AguilarLDL CALC6.2 mg/dLNoMercy Health Clermont HospitalComment on above: Performed By: #### CA, TSH, LIVER, LIPID #### [facility] [address] [place] [address] Dr. Greer Vivas PROFILEon 50-89-5075Fuxxtrt [Mass/Vol]3.2 g/dLCritically low3.4-5.0The [facility] HospitalComment on above:Performed By: #### CA, TSH, LIVER, LIPID #### [facility] [address] [place] [address] Dr. Greer NguyenAlbumin/Globulin [Mass ratio]0.9 {ratio}NormalThe [facility] HospitalComment on above:Performed By: #### CA, TSH, LIVER, LIPID #### [facility] [address] [place] [address] Dr. Greer Storey [Catalytic activity/Vol]91 U/KTffydk96-468Owt [facility] HospitalComment on above:Performed By: #### CA, TSH, LIVER, LIPID #### [facility] [address] [place] [address] Dr. Greer Corral [Catalytic activity/Vol]31 U/VFxyqns98-11Vgv [facility] HospitalComment on above:Performed By: #### CA, TSH, LIVER, LIPID #### [facility] [address] [place] [address] Dr. Greer Desai [Catalytic activity/Vol]14 U/LCritically hva24-47Wjm [facility] Hospitalment on above:Performed By: #### CA, TSH, LIVER, LIPID #### [facility] [address] [place] [address] Dr. Greer De La Cruz, CONJUGATED0.1 mg/dLNormal0.0-0.2The [facility] Comment on above:Performed By: #### CA, TSH, LIVER, LIPID #### [facility] [address] [place] [address] Dr. Greer Garciairubin [Mass/Vol]0.2 mg/dLNormal0.2-1.0[facility] Comment on above:Performed By: #### CA, TSH, LIVER, LIPID #### [facility] [address] [address] [address] Greer NguyenGlobulin (S) [Mass/Vol]3.7 g/dLNormalThe [facility] HospitalComment on above:Performed By: #### CA, TSH, LIVER, LIPID #### [facility] [address] [address] [address] Greer NguyenProtein [Mass/Vol]6.9 g/dLNormal6.4-8.2The [facility] Comment on above:Performed By: #### CA, TSH, LIVER, LIPID #### [facility] [address] [address] [address] Greer GannHotera 13-63-0159VKE9.744 uIU/mLNormal0.358-3.740The [facility] HospitalComment on above:Performed By: #### CA, TSH, LIVER, LIPID #### [facility] [address] [address] [address] Greer Morris B12 AND FOLATEon 85-82-6850Fnauwxnuu (Vitamin B12) [Mass/Vol] 893.0 pg/qJRnuyqe379.0-986.0The [facility] HospitalComment on above:Performed By: #### CA, TSH, LIVER, LIPID #### [facility] [address] [place] [address] Dr. Greer NguyenFOLATE23.40 ng/mLNormal8.60-58.90The [facility] HospitalComment on above:Performed By: #### CA, TSH, LIVER, LIPID #### [facility] [address] [place] [address] Dr. Greer NguyenHCG ( test) IA.rapid Ql (U)Ordered By: Ed Malhotra on 79-61-1636PFJ ( test) Ql (U)[facility] HCG ( test) IA.rapid Ql (U)Ordered By: Ed Malhotra on 38-00-2674BDM ( test) Ql (U)[facility] OhioXR hip BI w JCC0Tsc 05-64-5046UP hip BI w IFA3ISPBJDUWMANORWALK MEMORIAL HOSPITALNort [employer] Other XR hip BI w DQA9KAZFDSumma Health [facility] Campus [employer] Other XR hip BI w [id number] [facility] [employer] Other XR hip BI w GPJ0DOmmlyhpj, [place] [address]Fmeaq [employer] Other XR hip BI w LNF0QQUzwRiverview Regional Medical Center [employer] Other XR hip BI w CSB4NKloyufOtqbl [employer] Other XR hip BI w HNL9KKgwlhua: Michelle Rivera MR#: [id number] [facility] [employer] Other XR hip BI w VXG4X93Uqqxe [employer] Other XR hip BI w ZZI0OZFT: 1985 Acct:[id number] [employer] Other XR hip BI w FIV3CVxf/Sex: 36 / F ADM Date: 11/16/21 [place] [employer] Other XR hip BI w GXF9PQwo: ALEXD Room: Type: [facility] [employer] Other xr hip BI w BTP7SQubrisixg Dr: Ed Malhotra [facility] [employer] Other xr hip BI w ZHL6TUixggncu Provider: Ed Malhotra MDGr[place] [employer] Other XR hip BI w JYP8KFjrw of Service: 11/16/21[place] [employer] Other XR hip BI w XDO2MOhyluzzkn #: ([id number]) XR/XR hip BI w PEL1V: Hip painGrass Valley [employer] Other XR hip BI w ATE6IVmtcfn to: Ed Malhotra MDGr[place] Valley [employer] Other XR hip BI w WZQ6TBxs pelvis and bilateral hips 11/16/2021.[employer] Other xr hip BI w WJW5DGKBGZMSU DATA: Long history of bilateral hip pain.[employer] Other xr hip BI w PDY5MGCWAOLWA: An AP view of both hips was obtained along with separate lateral views of each of [facility] [employer] Other XR hip BI w UED5Dmyfig and left hips for a total of 3 images.[employer] Other xr hip BI w KYP4HJw acute fracture or dislocation is identified. No significant degenerative or other arthriticNocedar county memorial hospital [employer] Other XR hip BI w QOY9Paajxfzl are seen. No bony erosion or destruction is visualized.[employer] Other xr hip BI w QJT8IIZAHG #: [id number] XR/XR hip BI w BKR2DLxgjw [employer] Other xr hip BI w GSK8GILMGNGPSXC: No bony abnormality.[employer] Other xr hip BI w HQB4SAcyncqafki dictated by: Lester King Jr., M.D.11/16/2021 12:22 [facility] [employer] Other xr hip BI w GMD1VSkhcwfofu Location: [address] [employer] Other xr hip BI w WNP1ZSiacsnwewmk By: CHIKI 11/16/21 [facility] [employer] Other xr hip BI w FTO8NPqcuzcop By: Lester King Jr, MD 11/16/[address] [place] [address] [employer] Other xr hip BI w CJR5VFmltkl By:[employer] Other xr hip BI w MGF5I2011/16/[address] [place] [address] [employer] Other Dietition Noteon 34-38-8664Sdgwtrvjr NoteChief Complaint A telephone visit (audio only) [...] Topamax 100 MG Oral Tablet (Topiramate); Therapy: 17Pwp6912 to Recorded Dispense: 0 Days ; #: [...] (more content not included)... NormalUH TouchworksDietition Noteon 22-38-5307Lokrdadun NoteChief Complaint A telephone visit (audio only) [...] RD; Aug 23 2021 1:24PM EST (Author) [facility] TouchworksDietition Noteon 70-69-1594Lrswcaupo NoteChief Complaint A telephone visit (audio only) [...] 1 TABLET 3 TIMES DAILY NEEDED; Therapy: 06Nyn0069 to Recorded Dispense: 0 Days ; #: Sufficient Tablet; Refill: 0;For: Back spasm; LAUREL = N; Record; Last Updated By: Dionna Levi; 04/20/2021 4:14:36 PM CeleXA 40 MG Oral Tablet (Citalopram Hydrobromide); Therapy: 73Lrv2302 to Recorded Dispense: 0 Days ; #: [...] Rivera (more content not included)...NormalUH TouchworksDietition Noteon 28-67-6764Ujdzyucxd NoteChief Complaint A telephone visit (audio only) [...] habits (more content not included)...NormalUH TouchworksDietition Noteon 62-80-7598Mtspcbktw Note Chief Complaint A telephone visit (audio [...] Tablet; TAKE 1 TABLET TWICE DAILY; Therapy: 87Pfg6949 to Recorded Dispense: 0 Days ; #: Sufficient Tablet; Refill: 0;For: GERD (gastroesophageal reflux disease); LAUREL= N; Record; Last Updated By: Dionna Easton; 04/20/2021 4:14:36 PM Topamax 50 MG Oral Tablet; TAKE 1 TABLET DAILY; Therapy: 85Fbk7140 to Recorded Dispense: 0 Days ; #: [...] via phone d/ (more content not included)...NormalUH [facility] HospitalworksBariatric Surgery - Initialon 02-46-6833Qyolptlvp Surgery - Initial Diagnoses/Problems Assessed GERD (gastroesophageal [...] day smoker Tobacco Use Screening; Status:Complete; Done: 67Kif3380 Patient Discussion/Summary The following are some lifestyle [...] sensitivity she was planning to see her senior health consultant for this I agree that she should [...] Ris (more content not included)...NormalUH TouchworksANTINUCLEAR ANTIBODYon 82-40-5567RZPKBEUGWKW ANTIBODYNegativeNormalNEGATIVEThe Rehabilitation Hospital of Tinton FallsComment on above:Performed By: #### FELICIANO ####[facility], [place] [address]JLQCLXPJBU ANTIBODYon 01-22-2018 CITRULLINE ANTIBODY<1NormalThe Rehabilitation Hospital of Tinton FallsComment on above:Result Comment: THE TEST FOR ANTIBODIES SPECIFIC FOR CYCLICCITRULLINATED PEPTIDE (CCP) HAS SHOWN TOBEVALUABLE IN THE DIAGNOSIS OF RHEUMATOIDARTHRITIS. THE DIAGNOSTIC VALUE OFANTIBODIES TO CCP IN JUVENILE RHEUMATOIDARTHRITIS PATIENTS HAS NOT BEEN DETERMINED.ANTIBODIES TO CENTROMERE OR SS-A AND MYELOMAIGG MAY BE REACTIVE IN THIS ASSAY. REF VALUES NEGATIVE < 3 U/ML POSITIVE >=3 U/MLPerformed By: #### CITAB ####[facility], [place] [address]UCS-K72 TYPINGon 34-75-8694GHU-B27 TYPINGNegativeNoUniversity of Colorado Hospital Comment on above:Result Comment: This test was developed without FDA review. The test performancecharacteristics were defined and validated by the [facility] HLA LaboratoryDepartment of Pathology, under the accreditation guidelines of [facility]. Performed By: #### HLB27 ####[facility], [place] [address]M-IUXEMGHS PROTEINon 01-21-2018C reactive protein (CRP) 0.34 mg/dLNormalUHoboken University Medical CenterComment on above:Result Comment: REF VALUE< 1.00Performed By: #### CRP ####[facility], [place] [address]KGQLCTKFVB FACTORon 48-89-3805TSDMXOJECU FACTOR<07Xvtgiq6 - 15The Rehabilitation Hospital of Tinton FallsComment on above:Performed By: #### RF ####[facility], [place] [address]MMSXASYQKVLSS RATE, ERYTHROCYTEon 36-29-0503VEZFGTSNDFBOV RATE, GSADULNQNKL41 mm/hNormal0 - 20The Rehabilitation Hospital of Tinton FallsComment on above:Performed By: #### ESRWS ####[facility], [place] [address]Cs Panel Information [facility] Vital Signs Date TimeVital SignValuePerforming JwsikddtpWcakfclm57-47-4608 15:14-0400Body rizqgr990.1 cmVijaya Pinto APRN Work Phone: [phone]10-27-2025 15:14-0400 Body mass index (BMI) [Ratio]24.7 kg/p7XcoqjyVijaya Pinto APRN Work Phone: [phone]10-27-2025 15:14-0400 Body ljmypfygjwy11.7 [degF]Vijaya Pinto APRN Work Phone: [phone]10-27-2025 15:14-040 Body jaqwdx54.38 kgVijaya Pinto APRN Work Phone: [phone])[address]10-27-2025 15:14-0400 Diastolic blood cvbumgth13 mm[Hg]Vijaya Pinto APRN Work Phone: [facility]10-27-2025 15:14-0400 Heart rate72 /minVijaya Pinto APRN Work Phone: [facility]10-27-2025 15:14-0400 Respiratory rate19 /minVijaya Pinto MILK ROUTE DELIVERER Work Phone: [facility]10-27-2025 15:14-0400 SaO2% (BldA) [Mass fraction]97 %Vijaya Pinto APRN Work Phone: [facility]10-27-2025 15:14-0400 Systolic blood bamsxjck996 mm[Hg]Vijaya Pinto APRN Work Phone: [facility]08-28-2025 09:01-0400 Body mass index (BMI) [Ratio]23.6 kg/j7Pgbcn Giovanna DO Work Phone: [facility] HospitalVthsdaivmh21-91-0289 09:01-0400Body .32 kgCorey Giovanna DO Work Phone: [facility] HospitalYuonjhwsqo46-96-3343 09:01-0400Diastolic blood mm[Hg]Kirby Giovanna DO Work Phone: [facility] HospitalWunxpjvpgs29-18-6784 09:01-0400Systolic blood mm[Hg]Kirby Giovanna DO Work Phone: [facility] HospitalTxfnuddqso00-97-1161 07:42-0400Body gwcerz425.1 cmAservando Koenig MILK ROUTE DELIVERER-HANDBELL CHOIR DIRECTOR Work Phone: [facility]06-20-2025 07:42-0400Body mass index (BMI) [Ratio]23.73 kg/j0QywhxwfbqRivka Koenig MILK ROUTE DELIVERER-HANDBELL CHOIR DIRECTOR Work Phone: [facility]06-20-2025 07:42-0400Body aiviaoftgix77.81 [degF]Rivka Koenig MILK ROUTE DELIVERER-HANDBELL CHOIR DIRECTOR Work Phone: [facility]06-20-2025 07:42-0400Body .68 kgAleruben Koenig MILK ROUTE DELIVERER-HANDBELL CHOIR DIRECTOR Work Phone: [facility]06-20-2025 07:42-0400Diastolic blood cyrvtfgo51 mm[Hg]Rivka Koenig MILK ROUTE DELIVERER-HANDBELL CHOIR DIRECTOR Work Phone: [facility]06-20-2025 07:42-0400Heart rate 68 /minAleruben Koenig MILK ROUTE DELIVERER-HANDBELL CHOIR DIRECTOR Work Phone: [facility]06-20-2025 07:42-1712IhR5% (BldA) [Mass fraction]98 %Rivka Koenig APRN-HANDBELL CHOIR DIRECTOR Work Phone: [facility]06-20-2025 07:42-0400Systolic blood mm[Hg]Rivka Koenig MILK ROUTE DELIVERER-HANDBELL CHOIR DIRECTOR Work Phone: [facility]06-06-2025 08:00-0400Body mass index (BMI) [Ratio]23.06 kg/n3Ffmjvmi BennyMer[facility]06-06-2025 08:00-0400Body .87 kgShannon Bhupendra [facility]05-28-2025 08:53-0400Body .1 cmSyed Hasan DO Work Phone: [facility]05-28-2025 08:53-0400Body mass index (BMI) [Ratio]24.36 kg/m2Syed Hasan DO Work Phone: [facility]05-28-2025 08:53-0400Body mqumpz33.41 kgSyed Hasan DO Work Phone: [facility]05-28-2025 08:53-0400Diastolic blood mm[Hg]Rob Hasan DO Work Phone: [facility]05-28-2025 08:53-0400Systolic blood pkmxwiit717 mm[Hg]Rob Lombardo DO Work Phone: [facility]05-16-2025 09:00-0400Body .1 cmStefano Hinton PA Work Phone: [facility]05-16-2025 09:00-0400Body mass index (BMI) [Ratio]23.5 kg/x0LdhjiStefano Vaughnis PA Work Phone: [phone]05-16-2025 09:00-0400Body qtwxub38.05 kgStefano Vaughnis PA Work Phone: [phone] [place], [place] [address]05-16-2025 09:00-0400Diastolic blood pdrwzuwg14 mm[Hg]Stefano Hinton PA Work Phone: [facility]05-16-2025 09:00-0400Heart rate 66 /minStefano Vaughnis PA Work Phone: [phone]05-16-2025 09:00-0400Systolic blood gwmdezhq979 mm[Hg]Stefano Vaughnis PA Work Phone: [phone]01-09-2025 08:36-0500Heart rate 67 /minKamaljit May [facility]01-09-2025 08:36-8872GnE2% (BldA) [Mass fraction]97 %Kamaljit May [facility]01-09-2025 08:36-0500 Diastolic blood lrmkvkbi50 mm[Hg]Kamaljit May [facility]01-09-2025 08:36-0500Mean blood vjwujcff922 mm[Hg]Kamaljit May [facility]01-09-2025 08:36-0500 Systolic blood wprlgfiz852 mm[Hg]Kamaljit May [facility]01-09-2025 08:20-0500 Diastolic blood rboohnnx46 mm[Hg]Kamaljit May [facility]01-09-2025 08:20-0500Heart rate89 /minBrahenry Mariah [facility]01-09-2025 08:20-3081XgI1% (BldA) [Mass fraction]97 %Kamaljit May [facility]01-09-2025 08:20-0500 Systolic blood mm[Hg]Kamaljit May [facility]01-09-2025 07:23-0500Heart rate82 /minBrahenry Mariah [facility]01-09-2025 07:23-7495CrT4% (BldA) [Mass fraction]100 %Kamaljit May [address] [place], [place] [address]01-09-2025 07:22-0500Body wuouuhknxbk99.06 [degF]Kamaljit May [address] [place], [place] [address]01-09-2025 07:22-0500 Diastolic blood xaraxjww94 mm[Hg]Kamaljit May [facility]01-09-2025 07:22-0500Mean blood yyncluvg89 mm[Hg]Kamaljit May [facility]01-09-2025 07:22-0500 Systolic blood gjleedql631 mm[Hg]Kamaljit Mariah [address] [place], [place] [address]01-09-2025 07:21-0500 Respiratory rate14 /minBrahenry Mariah [address] [place], [place] 97[address]12-19-2024 14:46-0500Body sekyfn766.1 Jamal Wilson MD Work Phone: [facility] HospitalSuper Ele&Tec12-19-2024 14:46-0500Body mass index (BMI) [Ratio]23.8 kg/g2YafirEsthela Wilson MD Work Phone: [facility]12-19-2024 14:46-0500Body vqicle07.86 kgEsthela Wilson MD Work Phone: [facility]12-19-2024 14:46-0500Diastolic blood mm[Hg]Esthela Wilson MD Work Phone: [facility]12-19-2024 14:46-0500Heart rate 56 /minEsthela Wilson MD Work Phone: [facility]12-19-2024 14:46-0500Systolic blood asrbtyun242 mm[Hg]Esthela Wilson MD Work Phone: [facility]12-12-2024 13:12-0500Body jqxicmxyarv30.01 [degF]Zanemattie Shelley SUPERVISOR [employer]LE [employer] MOTTLE Work Phone: [facility] HospitalCgtwrijqfy00-28-1687 13:12-0500Diastolic blood azjnbyhq51 mm[Hg]Zane Shelley SUPERVISOR [employer] MOTTLE Work Phone: [phone] HospitalIomeylkztp47-21-1472 13:12-0500Heart rate78 /min Zane Shelley SUPERVISOR [employer]LE [employer] MOTTLE Work Phone: [facility] HospitalPhwxumhlvb25-12-3650 13:12-0500Respiratory rate20 /minZane Shelley SUPERVISOR [employer] MOTTLE Work Phone: [address] [place] [address]Kjtsgblrnh49-44-3540 13:12-4651VkW8% (BldA) [Mass fraction]99 %Zane Shelley SUPERVISOR [employer]LE [employer] MOTTLE Work Phone: [address] [place] [address]Qaldcvrdeo17-33-5210 13:12-0500Systolic blood zquazcfd883 mm[Hg]Zane Shelley SUPERVISOR [employer]LE [employer] MOTTLE Work Phone: [place] [address]Fidchxgeke51-27-6923 14:20-0500Body mass index (BMI) [Ratio]23.93 kg/j5Dtvns Giovanna DO Work Phone: [place] [address]Nbbofexbar29-47-3625 14:20-0500Body hadtsd10.22 kgCorey Giovanna DO Work Phone: [place] [address]Rovytyzewq66-86-3456 14:20-0500Diastolic blood cxijzady96 mm[Hg]Kirby Heredia DO Work Phone: [place] [address]Wddgzjxldq06-42-9156 14:20-0500Systolic blood mm[Hg]Kirby Giovanna DO Work Phone: [place] [address]Lljjovbfuw73-29-7603 11:37-0500Body .4 cmLidia Najera DO Work Phone: [phone] [place] [address]-20-2024 11:37-0500Body mass index (BMI) [Ratio]24.25 kg/m2Lidia Najera DO Work Phone: [phone] [place] [address]-20-2024 11:37-0500Body .13 kgLidia Najera DO Work Phone: [phone] [place], [place] [address]Wziaxghixy04-35-9662 11:37-0500Diastolic blood vyqbvhln42 mm[Hg]Lidia Najera DO Work Phone: [phone] [place] [address]-20-2024 11:37-0500Heart rate64 /min Lidia Najera DO Work Phone: [phone])[facility] [place] [address]-20-2024 11:37-8311UiO2% (BldA) [Mass fraction]98 %Lidia Najera DO Work Phone: [phone] [place] [address]-20-2024 11:37-0500Systolic blood mm[Hg]Lidia Najera DO Work Phone: [phone])[address] [place] [address]-18-2024 10:18-0500Diastolic blood bgatjcey77 mm[Hg]Amy Sustainability Roundtable [facility]11-18-2024 10:18-0500Heart rate61 /minAmanmayo Sustainability Roundtable [facility]11-18-2024 10:18-0500Mean blood duaoihmn054 mm[Hg]Amy [employer]ustain[employer]table [facility]11-18-2024 10:18-0500 Respiratory rate14 /minAmanda Durbin [facility]11-18-2024 10:18-0500 Systolic blood azcidvfw658 mm[Hg]Amy Ramakrishna [facility]11-14-2024 12:30-0500Blood Pressure LocationJENNIFER CORTNEY [facility]11-14-2024 12:30-0500Body dhgtepkdcxk28.6 [degF]HARDY BARR [facility]11-14-2024 12:30-0500Diastolic blood tkihjctq61 mm[Hg]HARDY BARR [facility]11-14-2024 12:30-0500Heart rate79 /minJENNIFER CORTNEY [facility]11-14-2024 12:30-0500Respiratory rate18 /minJENNIFER CORTNEY [facility]11-14-2024 12:30-0500Systolic blood dupxdohg628 mm[Hg]HARDY BARR [facility]11-04-2024 13:07-0500Body mass index (BMI) [Ratio]23.93 kg/k8Xklad Giovanna DO Work Phone: [facility] HospitalMdqpkpdmvo62-84-1633 13:07-0500Body ohutck33.22 kgCorey Giovanna DO Work Phone: [facility] HospitalSxdjwokzai37-60-2017 13:07-0500Diastolic blood cpdzjelx14 mm[Hg]Kirby Giovanna DO Work Phone: [phone] [place], [place] [address]Hmbueatibe83-65-8708 13:07-0500Systolic blood dytkyofn752 mm[Hg]Kirby Giovanna DO Work Phone: [phone] [place], [place] 532[address]09-26-2024 10:04-0400Body mass index (BMI) [Ratio]24.32 kg/o1Ldazz Giovanna DO Work Phone: [address] [place], [place] [address]Nxpkkvfggu64-59-8171 10:04-0400Body .31 kgCorey Giovanna DO Work Phone: [phone])[address] [place], [place] 532[address]09-26-2024 10:04-0400Diastolic blood mm[Hg]Kirby Giovanna DO Work Phone: [phone] [place], [place] 532[address]09-26-2024 10:04-0400Systolic blood jigtdehh542 mm[Hg]Kirby Giovanna DO Work Phone: [phone] [place], [place] 532[address]09-12-2024 09:12-0400Body uiellr587.4 cmCorey Giovanna DO Work Phone: [phone])[address] [place], [place] 5321209-12-2024 09:12-0400Body mass index (BMI) [Ratio]22.78 kg/s6Gcuff Giovanna DO Work Phone: [phone])[address] [place], [place] 5321209-12-2024 09:12-0400Body usnjts99.05 kgCorey Giovanna DO Work Phone: 1(025)[facility] [place], [place] [address]Aolmiowaoz74-59-1564 09:12-0400Diastolic blood crtvkvit90 mm[Hg]Kirby Giovanna DO Work Phone: 1(632)[address] [place], [place] 5321209-12-2024 09:12-0400Systolic blood vjbjppik136 mm[Hg]Kirby Giovanna DO Work Phone: [phone] [place], [place] 5321203-28-2024 11:03-0400Body .1 cmAlexarnel Koenig MILK ROUTE DELIVERER-HANDBELL CHOIR DIRECTOR Work Phone: [facility]03-28-2024 11:03-0400Body mass index (BMI) [Ratio]24.46 kg/b1Obodpsvqbruben Koenig MILK ROUTE DELIVERER-HANDBELL CHOIR DIRECTOR Work Phone: [facility]03-28-2024 11:03-0400Body cwkelriknhz46.81 [degF]Rivka Koenig MILK ROUTE DELIVERER-HANDBELL CHOIR DIRECTOR Work Phone: [facility]03-28-2024 11:03-0400Body mqziur62.68 kgAleruben Koenig MILK ROUTE DELIVERER-HANDBELL CHOIR DIRECTOR Work Phone: [facility]03-28-2024 11:03-0400Diastolic blood mauvmgom94 mm[Hg]Rivka Koenig MILK ROUTE DELIVERER-HANDBELL CHOIR DIRECTOR Work Phone: [facility]03-28-2024 11:03-0400Heart rate 76 /minAleruben Koenig MILK ROUTE DELIVERER-HANDBELL CHOIR DIRECTOR Work Phone: [facility]03-28-2024 11:03-2179DeV6% (BldA) [Mass fraction]97 %Rivka Koenig MILK ROUTE DELIVERER-HANDBELL CHOIR DIRECTOR Work Phone: [facility]03-28-2024 11:03-0400Systolic blood glbcuwqu748 mm[Hg]Rivka Koenig MILK ROUTE DELIVERER-HANDBELL CHOIR DIRECTOR Work Phone: [facility]03-28-2024 08:55-0400Body bsngeu296.1 cmMacinda Barrett MD Work Phone: [facility]03-28-2024 08:55-0400Body mass index (BMI) [Ratio]24.11 kg/o4TquiuheNichol Barrett MD Work Phone: [facility]03-28-2024 08:55-0400Body vrczto73.73 kgNichol Barrett MD Work Phone: [facility]03-28-2024 08:55-0400Diastolic blood byebskry94 mm[Hg]Nichol Barrett MD Work Phone: [facility]03-28-2024 08:55-0400Heart rate 65 /minNichol Barrett MD Work Phone: [facility]03-28-2024 08:55-0400Systolic blood lfbfxlih074 mm[Hg]Nichol Barrett MD Work Phone: [facility]03-11-2024 11:26-0400Body nzexlu917.37 cmALESLEY Lilly Millie Work Phone: [phone]92[facility]03-11-2024 11:26-0400 Body mass index (BMI) [Ratio]23.7 kg/m2DYLAN Carringtonsler Work Phone: [phone]03-11-2024 11:26-0400 Body jsliproyixs10.2 [degF]DYLAN Burnettuessler Work Phone: [phone]03-11-2024 11:26-0400 Body qiajxl44.77 kgDYLAN Carringtonsler Work Phone: 1(007)[address] [place], [place] 4752203-11-2024 11:26-0400 Heart rate66 /minDYLAN Carringtonsler Work Phone: [phone]03-11-2024 11:26-0400 Respiratory rate16 /minDYLAN Carringtonsler Work Phone: 1(215)[address] [place], [place] 4752203-11-2024 11:26-0400 SaO2% (BldA) [Mass fraction]97 %DYLAN Lilly Millie Work Phone: [phone]12-28-2023 08:01-0500 Body mass index (BMI) [Ratio]25.19 kg/u5Uarbtvhfuruben Koenig APRN-HANDBELL CHOIR DIRECTOR Work Phone: [facility]12-28-2023 08:01-0500Body yqiwjzghxfd39.01 [degF]Rivka Koenig APRN-HANDBELL CHOIR DIRECTOR Work Phone: [facility]12-28-2023 08:01-0500Body tcwrku22.67 kgAlexandra Koenig MILK ROUTE DELIVERER-HANDBELL CHOIR DIRECTOR Work Phone: 1(147)825-[address] [place] [address] YAMAPWpyufw46-45-1246 08:01-0500Diastolic blood vdbhkzyr11 mm[Hg]Rivka Koenig MILK ROUTE DELIVERER-HANDBELL CHOIR DIRECTOR Work Phone: 1(549)938-[address] [place] [address] [place] Bgnsqi09-16-1189 08:01-0500Heart rate 86 /minAleruben Koenig MILK ROUTE DELIVERER-HANDBELL CHOIR DIRECTOR Work Phone: [phone] [place] [address] [place] Kxxuvc64-87-5758 08:01-0844JgE6% (BldA) [Mass fraction]98 %Rivka Koenig MILK ROUTE DELIVERER-HANDBELL CHOIR DIRECTOR Work Phone: 1(288)151-[address] [place] [address] [place] Uptpyp12-64-7957 08:01-0500Systolic blood iblztnzf907 mm[Hg]Rivka Koenig MILK ROUTE DELIVERER-HANDBELL CHOIR DIRECTOR Work Phone: 1(549)088-[address] [place] [address] [place] Fsbdkm13-30-6098 09:49-0400Body .4 cmJason Genin DO Work Phone: [facility]09-01-2023 09:49-0400Body klgkuc14.56 kgJason Genin DO Work Phone: [facility]06-29-2023 09:30-0400Body bmnofo132.37 cmThomas Felter Other [employer] Other 06-29-2023 09:30-0400Body mass index (BMI) [Ratio]33.1 kg/f9Gamjwj Felter Other [employer] Other 06-29-2023 09:30-0400Body enyyjv73.63 kgThomas Felter Other [employer] Other 02-09-2023 10:30-0500Body xzuwxl702.37 cmThomas Felter Other [employer] Other 02-09-2023 10:30-0500Body mass index (BMI) [Ratio]42.6 kg/k7Wsflem Felter Other [employer] Other 02-09-2023 10:30-0500Body sqwajg940.94 kgThomas Felter Other [employer] Other 01-16-2023 10:15-0500Body .4 cmJason Genin DO Work Phone: [facility] Qvkjpv01-53-3412 10:15-0500Body ocnmyg152.94 kgJason Genin DO Work Phone: [facility] Shpiph39-76-8707 10:45-0500Body rqwezm991.37 cmThomas Felter Other [employer] Other 01-09-2023 10:45-0500Body mass index (BMI) [Ratio] 41.78 kg/b6Ejpvkp Felter Other [employer] Other 01-09-2023 10:45-0500Body dkaubl675.67 kgThomas Felter Other [employer] Other 12-19-2022 09:56-0500Body rdomkv081.4 cmJason Genin DO Work Phone: [facility] Gdrizu22-12-7482 09:56-0500Body dcqsae458.94 kgJason Genin DO Work Phone: [employer] Mrgzby91-08-1529 11:15-0500Body vrwmwi629.37 cmThomas Felter Other [employer] Other 08-16-2022 11:00-0400Diastolic blood ryhimynl57 mm[Hg] DYLAN Pinto Work Phone: [facility]08-16-2022 11:00-0400 Heart rate72 /minAPRTera Burnettuessler Work Phone: 1(294)[address] [place], [place] 4752208-16-2022 11:00-0400 Respiratory rate20 /minDYLAN Carringtonsler Work Phone: 1(027)[address] [place], [place] 4752208-16-2022 11:00-0400 SaO2% (BldA) [Mass fraction]100 %DYLAN Pinto Work Phone: [address] [place], [place] 4752208-16-2022 11:00-0400 Systolic blood zwafaqng323 mm[Hg]DYLAN Pinto Work Phone: 1(162)[address] [place], [place] 4752208-16-2022 10:22-0400 Inhaled oxygen flow rate3 L/minDYLAN Carringtonsler Work Phone: 1(342)[address] [place], [place] 4752208-16-2022 09:14-0400 Body qbktvo239.37 cmAPRTera Pinto Work Phone: 1(359)[address] [place], [place] 4752208-16-2022 09:14-0400 Body vkezxq251.93 kgAPRTera Pinto Work Phone: 1(829)[address] [place], [place] 4752207-18-2022 10:00-0400 Body .37 cmJustdanay Galdamez Other [employer] Other 07-18-2022 10:00-0400Body mass index (BMI) [Ratio] 41.62 kg/b0Rwyeivdanay Galdamez Other [employer] Other 07-18-2022 10:00-0400Body ojfyda914.21 kgJustdanay Galdamez Other [facility] [employer] Other 07-12-2022 09:06-0400Diastolic blood mm[Hg] DYLAN Carringtonsler Work Phone: 1(092)[address]07-12-2022 09:06-0400 Heart rate62 /minAPRTera Pinto Work Phone: 1(733)[address] [place], [place] 4752207-12-2022 09:06-0400 Respiratory rate20 /minDYLAN Pinto Work Phone: 1(466)[address] [place], [place] 4752207-12-2022 09:06-0400 SaO2% (BldA) [Mass fraction]100 %DYLAN Pinto Work Phone: 1(349)[address] [place], [place] 4752207-12-2022 09:06-0400 Systolic blood lhoooxfy508 mm[Hg]DYLAN Pinto Work Phone: 1(888)[address] [place], [place] 4752207-12-2022 08:29-0400 Inhaled oxygen flow rate3 L/minDYLAN Pinto Work Phone: 1(291)[address] [place], [place] 4752207-12-2022 07:36-0400 Body qgborr180.37 cmAPRTera Pinto Work Phone: 1(862)[address] [place], [place] 4752207-12-2022 07:36-0400 Body mass index (BMI) [Ratio]42.9 kg/m2DYLAN Pinto Work Phone: 1(396)[address] [place], [place] 4752207-12-2022 07:36-0400 Body .84 kgDYLAN Pinto Work Phone: 1(055)[address] [place], [place] 4752202-23-2022 11:45-0500 Body phfpeu046.37 cmThomas Felter Other [employer] Other 02-23-2022 11:45-0500Body mass index (BMI) [Ratio] 41.67 kg/y0Kbhvvn Felter Other [employer] Other 02-23-2022 11:45-0500Body ygdcyx846.35 kgThomas Felter Other [employer] Other 08-26-2021 08:16-0400Body fbilcm793.1 cmNo [facility] Work Phone: 1(848) 631-526508-26-2021 08:16-0400Body mass index (BMI) [Ratio] 40.98 kg/m2No [facility] Work Phone: 1(426) 437-439208-26-2021 08:16-0400Body surface area Derived from formula2.[address] [facility] Work Phone: 1(221) 875-461008-26-2021 08:16-0400Body qokhrd343.7 kgNo [facility] Work Phone: 1(878) 165-429308-19-2021 15:48-0400Body lfqehj210.37 cmNo [facility] Work Phone: 1(946) 773-923408-19-2021 15:48-0400Body mass index (BMI) [Ratio] 41.46 kg/m2No [facility] Work Phone: 1(727) 883-734508-19-2021 15:48-0400Body surface area Derived from formula2.[address] [facility] Work Phone: 1(341) 438-650708-19-2021 15:48-0400Body jittvq536.76 kgNo [facility] Work Phone: Encounters Encounter DateEncounter TypeCare ProviderFacilityStart: 06-28-2025 End: 08-50-9326ptxjgbvohmDsyogzPadilla Pinto APRN Work Phone: -[facility] ClydeStart: 06-28-2025 End: 11-82-9661Dbqcwvv encounter procedureAmy Benítez MILK ROUTE DELIVERER-[facility] Work Phone: Start: 06-04-2025 End: 38-90-2342OwwnvqZljdemw M Fourman MD Work Phone: [facility] General Surgery-BariatricComment on above:Malnutrition following gastrointestinal surgery; Postsurgical malabsorption; History of gastric bypassStart: 05-20-2025 End: 12-99-7785wdnxltgjihWdnnimPadilla Pinto APRN Work Phone: [facility] Work Phone: Start: 05-20-2025 End: 00-79-0341Wfiqhxo encounter procedureEd Fernández MD-[facility] Work Phone: Start: 04-29-2025 End: 26-07-0411Oqryfo flowsheetCorey Giovanna DO Work Phone: [facility] [place] OBGYNStart: 04-29-2025 End: 14-01-0159Bshddy flowsheetCorey Giovanna DO Work Phone: noMS [facility] OBGYNStart: 04-29-2025 End: 78-08-8716qxlhsmqmklBJPJB FAZIONot AvailableStart: 04-29-2025 End: 66-61-4726Mbscdu outpatient visit 15 minutesCorey Giovanna DO Work Phone: [facility] [place] OBGYNComment on above:HPV exposure; Menorrhagia with irregular cycleStart: 04-26-2025 End: 43-55-7499Hmbxy abstractingBrent Jacinto Hall DO Work Phone: [facility] CardiologyStart: 03-26-2025 End: 21-72-9311Xpfgfpreg encounterMarisol Dayday [place] OBGYNStart: 03-01-2025 End: 79-82-0940Gbazu abstractingScanning Provider ExternalProMedica Physicians CardiologyStart: 02-28-2025 End: 65-45-5078Myaass OnlySyed S Grupo DO Work Phone: [facility] Dig[facility]ive [facility], A Department of [facility] SystemComment on above:Irritable bowel syndrome with constipation (Primary Dx)Start: 02-19-2025 End: 17-95-8031Afjlsg outpatient visit 25 minutesAleruben Koenig APRN-HANDBELL CHOIR DIRECTOR Work Phone: [facility] Family MedicineComment on above: ADHD (attention deficit hyperactivity disorder), inattentive type (Primary Dx) Start: 02-19-2025 End: 39-63-7670jsismlwszyAKVUVCEMUHouston Methodist Clear Lake Hospital Ambulatory PPGStart: 16-62-6222glnpiqzyoaWXNKUFCZGHouston Methodist [facility] Ambulatory PPGStart: 02-05-2025 End: 38-71-8248kzmzmoeflkHyajuhb SorAur[facility] Dieticians Comment on above:Dietary counseling and surveillance (Primary Dx); History of gastric bypassStart: 01-27-2025 End: 82-48-5268Npxputbcg [facility] Work Phone: [facility], [facility] Department of [facility] Hospitaltart: 01-27-2025 End: 64-69-2452zqmmwzypxgGULLM M FERRAurora Medical Center-Washington County HospitalStart: 01-27-2025 End: 29-22-5562brhornyigdECWXHIHQPOhio State Harding Hospitaltart: 01-27-2025 End: 00-37-0380Bfzwfq outpatient new 45 minutesSyed S Grupo MARCH Work Phone: [facility], [facility] Department of The [facility] SystemComment on above:Change in bowel habits (Primary Dx); Malnutrition following gastrointestinal surgery; Postsurgical malabsorption; History of gastric bypass; Pain of upper abdomenStart: 72-01-1162rmeworlipaIKUG S HASANUniversity Hospitals Geauga Medical Center HospitalStart: 01-15-2025 End: 29-64-7599dguvspzfdeFMBKN M FERRISUniversity Hospitals Geauga Medical Center HospitalStart: 01-15-2025 End: 03-63-2478Zekcox outpatient visit 25 Declan Barrett MD Work Phone: [facility] General Surgery-BariatricComment on above:History of gastric bypass (Primary Dx); Malnutrition following gastrointestinal surgery; Postsurgical malabsorption; Iron excess; Zinc deficiency; Constipation, unspecified constipation type; Postprandial abdominal pain in right upper quadrantStart: 01-15-2025 End: 41-42-7413ljzgrfvgehUXLHW M FERRISUniversity Hospitals Geauga Medical Center HospitalStart: 11-58-4287zgzxdhrlugCZCGQI L [facility] Medical Centertart: 01-12-2025 End: 25-64-2898RbuzhaBo [facility] General Surgery-BariatricComment on above:Malnutrition following gastrointestinal surgery (Primary Dx); Postsurgical malabsorption; History of gastric bypassStart: 09-25-2024 End: 40-27-4588htjtelgfsbUeoqlf X OrzechFacility:EU Elitart: 09-10-2024 End: 67-39-0104mjgolnmesySmyhbxid A. JonesFacility:FTMCStart: 09-10-2024 End: 48-99-3853Hskh ManagementKamaljit May [facility] Start: 08-20-2024 End: 17-99-9364Jehqap outpatient [facility] minutesEsthela Wilson MD Work Phone: [facility] Reconstructive/Plastic Surgery Comment on above:Panniculitis (Primary Dx); History of gastric bypassStart: 08-20-2024 End: 56-98-1329kjgyimmgphBXXXY F KOLTZMartin Memorial Hospital Ambulatory PPGStart: 08-13-2024 End: 29-82-6502ezvbhyergrXAYNBLB N AUSTINNot AvailableStart: 08-13-2024 End: 77-00-1916Vsmsyqh encounter statusLinmiguel ángel Shelley SUPERVISOR [employer]LE [employer] MOTTLE Work Phone: NOEG HealthcareStart: 08-13-2024 End: 84-67-7809Zozvsgnz preventive med est patient 18-39 yrsLinmiguel ángel Shelley SUPERVISOR TILE [employer] MOTTLE Work Phone: NOFM SWS UCComment on above:Physical exam, pre- employment (Primary Dx); Encounter for wellness examination in adultStart: 08-03-2024 End: 90-21-7564avvjvqejqcICWCGUYY E PERRYFacility:FTMCStart: 07-28-2024 End: 16-40-5580Luawkei encounter procedureCorey Giovanna DO Work Phone: [facility] BCP OBComment on above:Nexplanon removalStart: 07-22-2024 End: 12-52-5276Tzsepb flowsheetLidia Najera DO Work Phone: [facility] BWJeyson GENSStart: 07-22-2024 End: 15-35-7502Bwexju flowsheetLidia Najera DO Work Phone: [facility] BWJeyson GENSStart: 07-22-2024 End: 04-65-3951Uphjsc outpatient new 30 minutesKyle Suzy DO Work Phone: [facility] BWM GENSComment on above:Other constipation (Primary Dx); Rectal bleeding; Internal hemorrhoidsStart: 07-22-2024 End: 43-82-0623thgcuejfzxLERV DUCKTRINot AvailableStart: 07-20-2024 End: 73-12-7860amhoqtatdtASFE NONEFacility:FTMCStart: 07-20-2024 End: 85-42-6102Bqhqxij encounter procedureAmanda Belton [facility] Start: 07-17-2024 End: 92-29-5090Npxaktcht Result EncounterCorey Giovanna DO Work Phone: noms External Department UnsolicitedStart: 07-17-2024 End: 60-78-8586Wannolwyb Result EncounterCorey Giovanna DO Work Phone: [facility] External Department UnsolicitedStart: 07-17-2024 End: 49-87-5904ejndcmgwoqCzzgkw A Schuessler MILK ROUTE DELIVERER Work Phone: [facility] Work Phone: Start: 07-17-2024 End: 32-44-9828Proxhvci Lalit Pinto MILK ROUTE DELIVERER Work Phone: [facility]-LAB Path Spec [place] HospStart: 07-16-2024 End: 41-51-7249zkhvrxurrcAoijz R FAZIOFacility:EU [place]vueStart: 07-16-2024 End: 20-10-7363Bdfemic encounter procedureJENNIFER E CORTNEY [facility] start: 07-13-2024 End: 31-29-2098AggneoMpczyochArash Chiu PA-C Work Phone: [facility] General Surgery-BariatricComment on above:Malnutrition following gastrointestinal surgery; History of gastric bypass; Postsurgical malabsorption; Vitamin B12 deficiencyStart: 07-10-2024 End: 95-58-7818Xsqlrzpsf Result EncounterCorey Giovanna DO Work Phone: n[facility] External Department UnsolicitedStart: 07-10-2024 End: 62-02-3318Gdnnegslb Result EncounterCorey Giovanna DO Work Phone: n[facility] External Department UnsolicitedStart: 07-06-2024 End: 41-19-0707Sqdvmm flowsheetCorey Giovanna DO Work Phone: [facility] BCP OBStart: 07-06-2024 End: 66-59-7575Nnzsjw flowsheetCorey Giovanna DO Work Phone: [facility] BCP OBStart: 07-06-2024 End: 03-90-5386Gguoqvxgw Result EncounterCorey Giovanna DO Work Phone: n[facility] External Department UnsolicitedStart: 07-06-2024 End: 25-25-6532Zgsanzt encounter procedureCorey Giovanna DO Work Phone: noms HealthcareStart: 07-06-2024 End: 91-14-5201Htkpjekp preventive med est patient 18-39 yrsCorey Giovanna DO Work Phone: noms BCP OBComment on above:Well woman exam with routine gynecological examStart: 07-06-2024 End: 78-49-4605hqmavxieqbTPGOO FAZIONot AvailableStart: 05-28-2024 End: 84-72-1584xqlmdlvsifItthg FazioFacility:[facility] Start: 05-28-2024 End: 90-79-3398Awiuxtyc Lalit Carringtondonald RICHARDSON Work Phone: [facility]-LAB Path Spec [place] HospStart: 05-28-2024 End: 01-30-3677Rwrkttr encounter procedureCorey Giovanna DO Work Phone: [facility] OBComment on above:Pre-op examination; Request for sterilization; Menorrhagia with regular cycle; Abnormal uterine bleeding (AUB); Pelvic pain in femaleStart: 05-28-2024 End: 90-18-2201Glbvrefzevwke examination doneCorey Giovanna DO Work Phone: noms HealthcareStart: 05-28-2024 End: 34-73-5627zekzkrzbcgAKKQB FAZIONot AvailableStart: 05-14-2024 End: 72-50-4625Ktrupw flowsheetCorey Giovanna DO Work Phone: [facility] OBStart: 05-14-2024 End: 12-54-3640Wbxbos flowsheetCorey Giovanna DO Work Phone: [facility] OBStart: 05-14-2024 End: 68-63-8667Mmfapnduz Result EncounterCorey Giovanna DO Work Phone: noms External Department UnsolicitedStart: 05-14-2024 End: 30-51-2864Zlugrd outpatient visit 15 minutesCorey Giovanna DO Work Phone: noms [facility] OBComment on above:Menorrhagia with regular cycle; Urinary frequencyStart: 05-14-2024 End: 87-99-5967yaimpfpxhrDATTE FAZIONot AvailableStart: 05-12-2024 End: 68-70-7072XdmdynRclatwcxArash Chiu PA-C Work Phone: [facility] General Surgery-BariatricComment on above:Postsurgical malabsorption; Malnutrition following gastrointestinal surgery; History of gastric bypassStart: 01-16-2024 End: 67-52-9764Miylzd OnlyRivka Koenig MILK ROUTE DELIVERER-HANDBELL CHOIR DIRECTOR Work Phone: [facility] Family MedicineStart: 11-28-2023 End: 75-26-4816Cojjvp outpatient visit 15 Declan Barrett MD Work [...] surgery; History of gastric bypass; [facility]Start: 11-14-2023 End: 88-44-1707yhsfkgruviKXVQ Judith A Schuessler Work Phone: [facility] Work Phone: Start: 11-14-2023 End: 91-89-7388Sejexew encounter procedureAPRTera Pinto Work Phone: [facility] Work Phone: Start: 11-11-2023 End: 77-24-1000Afcbuwi encounter procedureDYLAN Pinto Work Phone: [facility] Work Phone: Start: 08-29-2023 End: 06-59-7114Oygkdu outpatient visit 10 minutesRivka Koenig MILK ROUTE DELIVERER-HANDBELL CHOIR DIRECTOR Work Phone: [facility]Medel[facility] Physicians Family MedicineComment on above: Chronic low back pain with sciatica, sciatica laterality unspecified, unspecified back pain laterality (Primary Dx); Personal history of fibromyalgia; Polina's disease; Postsurgical malabsorption; Drug-induced constipation; History of gastric bypassStart: 46-58-6164Ltkwhthbv encounterFrank Negron DO Work Phone: OrthopaedicsStart: 06-06-2023 End: 65-78-8559mqujuwgpznKCUJP A GENINFacility:[facility] Centertart: 05-16-2023 End: 29-29-9659aleoztwqbaZtzruq Felter Other [employer] Other Start: 93-00-6961Uvyeqf outpatient visit 15 minutes Ed Barillas [facility] [place] CreekStart: 05-03-2023 End: 55-18-1685eujorbfvodNAGJL A GENINFacility:[facility] HospitalStart: 05-03-2023 End: 87-90-8199Gxzxmzm encounter procedureJason A Genin DO Work Phone: OrthopaedicsComment on above:Lateral epicondylitis of right elbow (Primary Dx)Start: 03-21-2023 End: 11-64-1399dcmoyhbqwcDTSZT A GENINFacility:[facility] Centertart: 03-13-2023 End: 60-22-3753rouvednqzrLjjlid Felter Other [employer] Other Start: 19-15-3121Irdsgkybb encounterThomas FelterFPG [facility] OrthopedicsStart: 03-07-2023 End: 98-38-9577aqkxmnuscxZziydbm Divencenzo OTR/L Work Phone: [facility] Occupational TherapyComment on above:Right elbow pain (Primary Dx); Lateral epicondylitis of right elbowStart: 03-01-2023 End: 42-51-6603irrepjhwifTffuqwt Divencenzo OTR/L Work Phone: [facility] Occupational TherapyComment on above:Right elbow pain (Primary Dx); Lateral epicondylitis of right elbowMedical equipment scripts questionStart: 02-28-2023 End: 41-11-7312ediglamzfjFflrc A Genin DO Work Phone: [employer] Other Start: 65-10-6148Svmeyb outpatient visit 25 minutes Ed Barillas [facility] [place] CreekStart: 58-56-3440Xeycthb encounter procedureJason A Genin DO Work Phone: OrthopaedicsComment on above:Next week off, possible [employer] appointment?Start: 04-91-5114Akygvterr encounterThjosé Miller OrthopedicsStart: 02-22-2023 End: 03-07-9716lgknpzooceZRKNNWP DIVENCENZOFacility:[facility] Start: 02-22-2023 End: 67-92-5111balhznqraxJmchjql Divencenzo OTR/L Work Phone: [place] Occupational TherapyComment on above:Right elbow pain (Primary Dx); Lateral epicondylitis of right elbowStart: 02-14-2023 End: 14-66-5239yhyjsavrfkJUPXX A GENINFacility:[facility] Centertart: 02-14-2023 End: 57-03-5624Pofjpv outpatient visit 25 minutesJason A Genin DO Work Phone: OrthopaedicsComment on above:Right elbow pain (Primary Dx); Lateral epicondylitis of right elbowStart: 01-36-3817Aigtngong encounterJason A Genin DO Work Phone: [facility] Rheum InstituteComment on above:OrdersStart: 01-10-2023 End: 32-22-5910qqmfpmdcgpUwnniq [employer] Other [place] [employer] Other Start: 19-81-2887Vnyfjzpps encounterThjosé Miller OrthopedicsStart: 12-20-2022 End: 62-91-5157dxfyehjjciDIYVI A GENINFacility:[facility] Centertart: 12-20-2022 End: 85-16-2067Xwvcuxx encounter procedureJason A Genin DO Work Phone: OrthopaedicsComment on above:Right elbow pain (Primary Dx); Lateral epicondylitis of both elbowsStart: 90-23-1166fwnabtppsqRvl Provider OrthopaedicsComment on above:PRP injection - Right elbow - with Dr. Peraltatart: 87-43-5663C-mail encounter from [facility] Atiya [facility]ITALtart: 12-04-2022 End: 09-55-9891bugavhwrixFDTIU A GENINFacility:[facility] HospitalStart: 12-04-2022 End: 30-41-0897Asiaar outpatient visit 25 minutesJason A Genin DO Work Phone: Orthopaedics ClevelandComment on above:Lateral epicondylitis of both elbows (Primary Dx); Left elbow painStart: 11-16-2022 End: 48-28-6405ffspxgysmlUGWEQ A GENINFacility:[facility] HospitalStart: 68-61-1042pvdntubtrvFYUFUE FELTERFacility:G8Ibick: 10-12-2022 End: 41-73-4745xzynfnwypvHcfion Felter Other [employer] Other Start: 12-67-6682Bpuktwzaj encounterThomas FelterFPG [place] OrthopedicsStart: 10-11-2022 End: 21-10-0325iqqtpnmgemZeosud Felter Other [employer] Other Start: 73-40-1231Qjzmdr outpatient visit 25 minutes Ed [facility] CreekStart: 61-80-6024Burtozueb encounter Xander CrowelladiologyComment on above:AppointmentStart: 09-17-2022 End: 33-99-6576udgjpomdjjAUIIH A GENINFacility:[facility] HospitalStart: 09-17-2022 End: 67-30-9029Slisalp encounter procedureJason A Genin DO Work Phone: OrthopaedicsComment on above:Lateral epicondylitis of both elbows (Primary Dx); Left elbow pain; Right elbow pain; FibromyalgiaStart: 09-11-2022 End: 18-38-3176itoudtdzcrMasefgo H King RT(R)RadiologyComment on above:Radiology MRIStart: 55-39-3038Sfkencs encounter procedureAustin Nataly King ANDRIA(R)PIERCE BROWNING Start: 09-11-2022 End: 15-95-2984Wllgiskrkx hospital visit by physicianDinora [facility] Nay (1.5t) Work Phone: RadiologyComment on above:Lateral epicondylitis of both elbows [M77.11, M77.12]Start: 09-10-2022 End: 41-89-1998regisznfswMtjnmj Felter Other [employer] Other Start: 58-29-3782Poixqe outpatient visit 15 minutes Ed [facility] Bone CreStart: 08-20-2022 End: 46-12-6301hzjzdvplrzYUHZR A GENINFacility:[facility] Hospitaltart: 08-20-2022 End: 42-59-4668Vrqzori encounter procedureFrank Negron DO Work Phone: OrthopaedicsComment on above:Left elbow pain (Primary Dx); Lateral epicondylitis of both elbows; Right elbow pain; Fibromyalgia; Anxiety; Sleep apnea, unspecified type; CervicalgiaStart: 08-06-2022 End: 90-05-1069bbngznlypgDnpeis Felter Other [employer] Other Start: 26-58-7858Bwxmoa outpatient visit 25 minutes Ed [facility] Bone ekStart: 07-20-2022 End: 80-29-0371Uyjgsuj encounter procedureLester Gomez DO Work Phone: OrthopaedicsComment on above:Lateral epicondylitis of both elbows (Primary Dx)Start: 07-20-2022 End: 30-12-9716Nogfxilaki hospital visit by physicianCarolyn Pettit 1 Work Phone: RadiologyComment on above:Pain [R52]Start: 06-25-2022 End: 59-02-7147rtjojwwidcFbnbyi Felter Other [employer] Other Start: 93-10-7677Bffqyjuun encounterThomas FelterFPG [facility] OrthopedicsStart: 05-14-2022(Procedure) ShortThomas FelterErie [facility] CenterStart: 05-14-2022 End: 11-64-2450tahpqbyrgtOlpzib Felter Other [employer] Other Start: 05-04-2022 End: 76-86-9595ylfkywtefdIN DOCTOR MISCFacility:W4Iilus: 04-30-2022 End: 61-64-2056wxkufoitoxEqxs Fitt Other [employer] Other Start: 93-39-8001Dbzytkusu encounterDawn [facility] ClinicStart: 04-24-2022 End: 35-20-4183aszozfeexfTfqmyb Felter Other [employer] Other Start: 80-21-4117Wxlbne outpatient visit 25 minutes Ed [facility] CreekStart: 04-17-2022 End: 71-70-1621Lgaegpnwm to same day surgery centerAPRN Vijaya Pinto Work Phone: [facility] HealthStart: 03-27-2022 End: 87-64-1097xawdjlflnfBfvtli Felter Other [employer] Other Start: 17-61-8421Adjsup outpatient visit 25 minutes Ed [facility] CreekStart: 03-21-2022 End: 32-33-4775fwrolgqutjGxpe Fitt Other [employer] Other Start: 46-68-8933Jgddinpsl encounterDawn [facility] ClinicStart: 03-19-2022 End: 61-56-8253adqfonfwsuWfgook Kelley Other [employer] Other Start: 81-16-3046Pqsjsk outpatient visit 15 minutes Abundio [facility] OrthopedicsStart: 03-13-2022(Procedure) ShortThomas [facility] OutPtStart: 03-13-2022 End: 11-76-0402dbpcbuoxeeBdzokc Felter Other [employer] Other Start: 03-13-2022 End: 31-92-1864Hpqkkdbxl to same day surgery centerAPRN Vijaya Pinto Work Phone: [facility] HealthStart: 01-15-2022 End: 59-56-3568huvjltoizhGixtjk Felter Other [employer] Other Start: 24-90-7466Qduzgtcgd encounterThomas FelterFPNadya Miller OrthopedicsStart: 12-28-2021 End: 34-90-2495ssiaubkcpoOnmmfg Felter Other [employer] Other Start: 21-85-5379Amefan outpatient visit 25 minutes Ed FelterFPG [facility] CreekStart: 11-16-2021 End: 88-47-1190yjcdvycbisDyfvpa Felter Other [employer] Other Start: 99-01-6900Dbisnn outpatient visit 25 minutes Ed FelterFPG [facility] CreekStart: 11-07-2021(Procedure) Short Ed [facility] OutPtStart: 11-07-2021 End: 47-81-9512wzkvptenfyMmlqoo Felter Other [employer] Other Start: 49-44-0640Sjuqtcf encounter procedureNo PCP XsigTR[facility]uk[facility] Work Phone: start: 10-25-2021 End: 13-11-6799irykylttohHrizri Felter Other [employer] Other Start: 44-29-2761Xfbzqg outpatient visit 25 minutes Ed FelterFPG [facility] [place] CreekStart: 10-17-2021(Procedure) Short Ed Funes [facility] CenterStart: 10-17-2021 End: 51-03-1968hiegryxvdlPldgcf Felter Other [employer] Other Start: 09-26-2021 End: 02-11-7916eyrouikvtxVzrbxx Felter Other [employer] Other Start: 41-37-2644Cxjkhwvoq encounterThomas FelterFPG [facility]opedicsStart: 09-14-2021 End: 03-44-6245ekfinuvmixFcpwyz Felter Other [employer] Other Start: 30-70-9694Tsdnzb consultation new/estab patient 60 minThomas FelterFPG [facility] CreekStart: 88-69-6921UUMHZDy PCP MajgXS-Jlvzdvkvw-Hcpltu 170 DO Work Phone: Start: 24-89-6002Lartfxo encounter procedureNo PCP TojcXW-Zetqxhi-Qypcct [facility] Work Phone: start: 03-57-2621Zlevmed encounter procedureNo PCP WqldSZ-Fgafvix-Bmlanq [facility] Work Phone: start: 69-30-9436EYKSIEMDXE, Provider: Allyn Mcdaniels, Status: Pen, Time: 9:30 AMNo PCP [facility] Work Phone: Start: 00-10-5234Hszcob outpatient new 45 minutesNo PCP BuigUF-Iektdbs-Ktory MAC2 303 Work Phone: Start: 51-91-7782Jtdvu UpdateNo PCP [facility] Work Phone: Start: 90-83-7591TFFWKXx PCP [facility] Work Phone: Procedures DateProcedureProcedure DetailPerforming ClinicianStart: 37-44-2346Cszlt depression screening assessmentAlexandra Koenig MILK ROUTE DELIVERER-HANDBELL CHOIR DIRECTOR Work Phone: Start: 39-86-8397Qrkvee-up visitFollow-upSTEFANO VAUGHNISStart: 67-60-7593CHP INSERTION/REMOVAL OF CONTRACEPTIVE CAPSULECorey Giovanna DO Work Phone: Start: 01-35-3777HTH CBC WITH AUTO DIFFCorey Giovanna DO Work Phone: Start: 76-66-2478QEY PREG QUANT HCGCorey Giovanna DO Work Phone: Start: 57-62-4875Sgukjpy hysterectomyAmanda Belton start: 96-80-1931YL PELVIS W/ TRANSVAGINALCorey Giovanna DO Work Phone: Start: 99-92-3254HFB,APTIMA HPV,AGE GDLNCorey Giovanna DO Work Phone: Start: 96-14-9680Nsmtptjvklp observation [Identifier] in Cervix by Cyto stainEsthela Wilson MD Work Phone: Start: 68-51-1070Jzkef test visual color cmprsn methsCorey Giovanna DO Work Phone: Start: 16-63-2332YXD HEMOGLOBIN K1WCixbd Giovanna DO Work Phone: Start: 49-02-4736Teyng dip stick/tablet rgnt non-auto w/o micrscpCorey Giovanna DO Work Phone: Start: 05-02-2805Hweyc X-ray of right hipAPRN Vijaya Pinto Work Phone: Start: 32-11-7392R-ray of lumbar spine, four viewsAPRTera Lilly Millie Work Phone: Start: 12-57-9028Cvrwx Strep (POC)DYLAN Burnettuessler Work Phone: Start: 35-23-1368Khcjnuofblz observation [Identifier] in Cervix by Cyto Lise Chiu PA-C Work Phone: Start: 31-47-1110Frpo cerv/vag auto thin layer prep mnl screenCorey Giovanna DO Work Phone: Start: 05-03-2023 End: 32-25-5421Cw guidance needle placement img s&iJason A Genin DO Work Phone: Start: 72-43-3735Dgalt depression screening assessment Rivka Koenig MILK ROUTE DELIVERER-HANDBELL CHOIR DIRECTOR Work Phone: start: 85-14-1284Xb compl joint r-t w/image documentationJason A Genin DO Work Phone: Start: 01-12-0287Ian pltlt plasma w/img harvest/preparationJason A Genin DO Work Phone: Start: 85-96-7306Vt compl joint r-t w/image documentationJason A Genin DO Work Phone: Start: 79-70-2360Kcadee of stomachAmanda Durbin start: 09-11-2022 End: 93-52-2806Gnc any jt upper extremity w/o contrast matrlJason A Genin DO Work Phone: Start: 16-18-7414Hzbba elbow complete minimum 3 views Lester Gomez DO Work Phone: Start: 81-39-4140Cpzig anesthetic lumbar facet joint nerve blockAPRTera Vijaya Millie Work Phone: Start: 04-90-7080Ssuidhbj injection of lumbar spine using fluoroscopic guidanceAPRN Vijaya Melgarler Work Phone: Start: 57-49-6073Zuijypicznz diagnostic evaluationNo PCP NoneAdenoid excisionJENNIFER CORTNEY Adenoid excisionAmanda [employer] comment on above:01/2001Bypass of stomachJENNIFER CORTNEY TonsillectomyNo PCP NoneTonsillectomyJENNIFER CORTNEY TonsillectomyAmanda [employer] comment on above:01/2001 Plan of Treatment DateCare ActivityDetailAuthorStart: 06-72-1269Umlnqiekq for malignant neoplasm of cervixPap SmearRiverside Methodist Hospital SystemStart: 69-40-7923Ulacpuuuj for malignant neoplasm of cervixPap SmearRiverside Methodist Hospital SystemStart: 02-19-2026 Adult BMI ScreeningAdult BMI ScreeningRiverside Methodist Hospital SystemStart: 02-19-2026 Depression ScreeningDepression ScreeningRiverside Methodist Hospital SystemStart: 02-19-2026 Tobacco ScreeningTobacco ScreeningRiverside Methodist Hospital SystemStart: 63-04-6227Ormql BMI ScreeningAdult BMI ScreeningRiverside Methodist Hospital SystemStart: 27-78-7465Hsvrg BMI ScreeningAdult BMI ScreeningRiverside Methodist Hospital SystemStart: 17-22-9050Bthsswb ScreeningTobacco ScreeningRiverside Methodist Hospital SystemStart: 28-24-1550Hiwwb BMI ScreeningAdult BMI ScreeningRiverside Methodist Hospital SystemStart: 61-64-0613Lktbbsn ScreeningTobacco ScreeningRiverside Methodist Hospital SystemStart: 01-07-2026 End: 00-78-8898Uhasnhv encounter emudfaimx28/08/2026 8:30 AM EDT Office Visit [facility] [address] [facility] [address] [place] [phone] Nichol Barrett MD [address] [address] Amy Chiu PA-C [address] [facility] [address] [place] [address] [facility]-BariatricStart: 12-27-2025 End: 71-79-7712Splrvzi [Mass/volume] in Serum or PlasmaCalcium Lab Routine 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 Histo ry of gastric bypass Expected: 12/27/2025, Expires: 01/15/2026[employer] Work Phone: Comment on above:Expected: 12/27/2025, Expires: 01/15/2026Start: 12-27-2025 End: 66-40-7966MNT panel - Blood by Automated countCBC without diff Lab Routine 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 History of gastric bypass Expected: 12/27/2025, Expires: 01/15/2026[facility], [facility], Cancer CenteriSpye SystemComment on above:Expected: 12/27/2025, Expires: 01/15/2026Start: 12-27-2025 End: 12-08-9933UyyrtnKoko guo S Lab Routine 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 History of gastric bypass Expected: 12/27/2025, Expires: 01/15/2026[facility] Cancer CenteriSpye SystemComment on above:Expected: 12/27/2025, Expires: 01/15/2026Start: 12-27-2025 End: 54-23-2747Mnwucncjwcjrja vitamin b-12Vitamin B12 Lab Routine 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 History of gastric bypass Expected: 12/27/2025, Expires: 01/12/2040[facility], Cancer CenteriSpye SystemComment on above:Expected: 12/27/2025, Expires: 01/12/2040Start: 12-27-2025 End: 24-18-6716Qdvfoxxs [Mass/volume] in Serum or PlasmaFerritin Lab Routine 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 Hist ory of gastric bypass Expected: 12/27/2025, Expires: 01/15/2026[facility] SystemComment on above:Expected: 12/27/2025, Expires: 01/15/2026Start: 12-27-2025 End: 82-14-3919Kcsd and TIBCIron and TIBC Lab Routine 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 History of gastric bypass Expected: 12/27/2025, Expires: 01/12/2040[facility] CenterComment on above:Expected: 12/27/2025, Expires: 01/12/2040Start: 12-27-2025 End: 97-93-1844Hzisc panelLiver panel Lab Routine 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 History of gastric bypass Expected: 12/27/2025, Expires: 01/12/2040[facility] CenterComment on above:Expected: 12/27/2025, Expires: 01/12/2040Start: 12-27-2025 End: 17-46-4620Bnrvmrjsrtk Hormone, intactParathyroid Hormone, intact Lab Routine 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 History of gastric bypass Expected: 12/27/2025, Expires: 01/12/2040[facility] CenterComment on above:Expected: 12/27/2025, Expires: 01/12/2040Start: 12-27-2025 End: 20-90-0062Ukxbrze (Vitamin B1), WBThiamin (Vitamin B1), WB Lab Routine 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 History of gastric bypass Expected: 12/27/2025, Expires: 01/15/2026[facility] CenterComment on above:Expected: 12/27/2025, Expires: 01/15/2026Start: 12-27-2025 End: 19-57-9251Iaymryi A (Retinol)Vitamin A (Retinol) Lab Routine 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 History of gastric bypass Expected: 12/27/2025, Expires: 01/15/2026[facility] CenterComment on above:Expected: 12/27/2025, Expires: 01/15/2026Start: 12-27-2025 End: 83-70-9951Rbanlqt D 25 hydroxyVitamin D 25 hydroxy Lab Routine 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 History of gastric bypass Expected: 12/27/2025, Expires: 01/12/2040[facility] Comment on above:Expected: 12/27/2025, Expires: 01/12/2040Start: 12-27-2025 End: 36-26-5560Tsij, SerumZinc, Serum Lab Routine 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 History of gastric bypass Expected: 12/27/2025, Expires: 01/15/2026[facility] Medical CenterComment on above:Expected: 12/27/2025, Expires: 01/15/2026Start: 77-09-7327Hutom BMI ScreeningAdult BMI ScreeningDosher Memorial Hospitaltart: 21-54-8000Cbedypl ScreeningTobacco ScreeningDosher Memorial Hospitaltart: 07-12-2025 End: 02-08-3300Cbimiyg encounter loectftkr80/10/2025 2:20 PM EST Procedure Visit [facility] [address] [facility] [place] [address] Kirby Heredia DO [address] [place] [address] [place] [address] KT DHALIWALtart: 05-04-2025 End: 20-03-0196Ryujgiv encounter kzlovozvc43/02/2025 3:00 PM EDT Office Visit [facility] [address] [place] [address] [place] [address] Zuhair Hall, DO [address] [place] [address], [address] [place] [address] [facility] Start: 08-05-4208Bwmvaeuwe vaccinationInfluenza VaccineAdams County Regional Medical Center Start: 04-02-2025 End: 48-67-0777Xsjzcyv encounter wlykqrunb31/01/2025 7:40 AM EDT Office Visit [facility] [address] [facility] [place] [place] [address] Rivka Koenig APRN-HANDBELL CHOIR DIRECTOR [address] [place] [address], [place] [address] [facility] MedicineStart: 03-25-2025 End: 56-35-6270Nyseedova to same day surgery twgxta3503/25/2025 1:30 PM EDT - 03/25/2025 2:[address] [facility] [address] [facility] [place] [address] Rob Lombardo, DO [address] [facility], [facility] [address] [place] [address] ESOPHAGOGASTRODUODENOSCOPY DIAGNOSTIC [47039 (CPT )][facility] - EndoscopyComment on above:ESOPHAGOGASTRODUODENOSCOPY DIAGNOSTIC [04496 (CPT )] Start: 03-25-2025 End: 72-13-7643Cvzbhvgcwhnxmptsazyqmbuokg transoral diagnostic ESOPHAGOGASTRODUODENOSCOPY DIAGNOSTIC Malnutrition following gastrointestinal surgery K91.2 Change in bowel habits R19.4 Pain of upper abdomen R10.10 03/25/2025 1:30 PM EDTWELLNESS ENDOSCOPYStart: 90-29-2071Izqtdhbbvv hospital visit by jjqlgemwp31/24/2025 1:30 PM EDT Hospital Encounter [facility] [address] [facility] [place] [address] Rob Lombardo, DO [address] [facility], [facility] [address] [place] [address] [facility] EndoscopyStart: 03-18-2025 End: 58-44-9053Hzrwdfh encounter zudapfrfs14/17/2025 12:[address] [facility] Pre and Post OP [address] [facility] [place] [address] [phone] [facility] - [facility] Pre and Post OPStart: 03-08-2025 End: 39-95-3166Crjgnpf encounter bhnidnbuf67/07/2025 9:30 AM EDT [facility] [address] [place] [address] Anjelica Fields MD [address] [place] [address] [facility] CardiologyStart: 02-19-2025 End: 65-31-2872Ovhzhfj encounter qbuclmqaj69/20/2025 7:40 AM EDT [facility] [address] [place] [address] [place] [address] Rivka Koenig, MILK ROUTE DELIVERER-HANDBELL CHOIR DIRECTOR [address] [place], [facility] [address] [facility] Family MedicineStart: 02-05-2025 End: 76-60-4582lehubulfjp08/06/2025 8:00 AM EDT Support Visit [facility] [address] [place] [address] Petey De Guzman RDSt. Francis Hospital DieticiansStart: 01-27-2025 End: 62-89-7114OM Upper gastrointestinal tract and Small bowel Single view W contrast POFluoroscopy upper GI with small bowel Imaging Routine Malnutrition following gastrointestinal surgery Change in bowel habits Expected: 01/27/2025, Expires: 01/27/2026[facility] Work Phone: Comment on above:Expected: 01/27/2025, Expires: 01/27/2026Start: 01-27-2025 End: 93-38-3103EW Abdomen APProWilson Street Hospital SystemComment on above:Expected: 01/27/2025, Expires: 01/27/2026Start: 01-15-2025 End: 79-86-7581CQ Abdomen limitedUltrasound abdomen limited Imaging Routine History of gastric bypass Postprandial abdominal pain inright upper quadrant Expected: 01/15/2025, Expires: 01/15/2026ProOhiohealth Riverside Methodist HospitaliSpye SystemComment on above:Expected: 01/15/2025, Expires: 01/15/2026Start: 01-15-2025 End: 96-34-2950Qbnrmvb encounter aiohqelzc64/16/2025 9:15 AM EDT Office Visit [facility] [address] [place] [address]. [address] [place] [address] Nichol Barrett MD [address] [address] Stefano Hinton PA [address] [facility] [address] [place] [address] [facility] Surgery-BariatricStart: 01-12-2025 End: 79-45-0124Xqeydup [Mass/volume] in Serum or PlasmaCalcium Lab Routine 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 Histo ry of gastric bypass Expected: 01/12/2025, Expires: 01/12/2026[facility] Work Phone: Comment on above:Expected: 01/12/2025, Expires: 01/12/2026Start: 01-12-2025 End: 00-28-6296RMK W Auto Differential panel - BloodCBC auto differential Lab Routine Malnutrition following gastrointestinal surgery Postsurgical malab sorption History of gastric bypass Expected: 01/12/2025, Expires: 01/12/2026 [facility] SystemComment on above:Expected: 01/12/2025, Expires: 01/12/2026Start: 01-12-2025 End: 73-64-7277ZdnkxbKoko guo S Lab Routine 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 History of gastric bypass Expected: 01/12/2025, Expires: 01/12/2026ProOhiohealth Riverside Methodist HospitalNeXplore [facility] SystemComment on above:Expected: 01/12/2025, Expires: 01/12/2026Start: 01-12-2025 End: 18-06-1979Wymgegbmqmjbhm vitamin b-12Vitamin B12 Lab Routine 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 History of gastric bypass Expected: 01/12/2025, Expires: 01/12/2026[facility] CenterComment on above:Expected: 01/12/2025, Expires: 01/12/2026Start: 01-12-2025 End: 84-49-6681NmvqpkEmsijh Lab Routine 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 History of gastric bypass Expected: 01/12/2025, Expires: 01/12/2026[facility] Medical CenterComment on above:Expected: 01/12/2025, Expires: 01/12/2026Start: 01-12-2025 End: 87-61-8882Ulem [Mass/volume] in Serum or PlasmaIron Lab Routine 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 Historyof gastric bypass Expected: 01/12/2025, Expires: 01/12/2026[facility] CenterComment on above:Expected: 01/12/2025, Expires: 01/12/2026Start: 01-12-2025 End: 06-48-6036Obdkc panelLiver panel Lab Routine 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 History of gastric bypass Expected: 01/12/2025, Expires: 01/12/2026[facility] Medical CenterComment on above:Expected: 01/12/2025, Expires: 01/12/2026Start: 01-12-2025 End: 94-11-1420Spiidkjzwqb Hormone, intactParathyroid Hormone, intact Lab Routine 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 History of gastric bypass Expected: 01/12/2025, Expires: 01/12/2026[facility] Medical CenterComment on above:Expected: 01/12/2025, Expires: 01/12/2026Start: 01-12-2025 End: 37-11-9859Pouooze (Vitamin B1), WBThiamin (Vitamin B1), WB Lab Routine 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 History of gastric bypass Expected: 01/12/2025, Expires: 01/12/2026[facility] CenterComment on above:Expected: 01/12/2025, Expires: 01/12/2026Start: 01-12-2025 End: 25-31-9927Ureyutj A (Retinol)Vitamin A (Retinol) Lab Routine 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 History of gastric bypass Expected: 01/12/2025, Expires: 01/12/2026[facility] Medical CenterComment on above:Expected: 01/12/2025, Expires: 01/12/2026Start: 01-12-2025 End: 37-52-2245Ecqsmwe D 25 hydroxyVitamin D 25 hydroxy Lab Routine 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 History of gastric bypass Expected: 01/12/2025, Expires: 01/12/2026[facility] Comment on above:Expected: 01/12/2025, Expires: 01/12/2026Start: 01-12-2025 End: 58-17-5739Avps, SerumZinc, Serum Lab Routine 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 History of gastric bypass Expected: 01/12/2025, Expires: 01/12/2026[facility] Medical CenterComment on above:Expected: 01/12/2025, Expires: 01/12/2026Start: 15-69-9232Ksqhtlb ScreeningTobacco ScreeningRiverside Methodist Hospital SystemStart: 09-92-0131Imeix BMI ScreeningAdult BMI ScreeningDosher Memorial Hospitaltart: 27-53-8516Tkxfrmj ScreeningTobacco ScreeningDosher Memorial Hospitaltart: 11-26-2024 End: 97-34-9929Jxtspph [Mass/volume] in Serum or PlasmaCalcium Lab Routine Malnutrition following gastrointestinal surgery History of gastric bypass Postsu rgical malabsorption Expected: 11/26/2024 (Approximate), Expires: 11/26/2024 [facility] Work Phone: Comment on above:Expected: 11/26/2024 (Approximate), Expires: 11/26/2024Start: 11-26-2024 End: 67-06-2314FTB W Auto Differential panel - BloodCBC auto differential Lab Routine Malnutrition following gastrointestinal surgery History of gastric bypass Postsurgical malabsorption Expected: 11/26/2024 (Approximate), Expires: 11/26/2024[facility] CenterComment on above:Expected: 11/26/2024 (Approximate), Expires: 11/26/2024Start: 11-26-2024 End: 89-07-1705Gnuliw, serumCopper, serum Lab Routine Malnutrition following gastrointestinal surgery History of gastric bypassPostsurgical malabsorption Expected: 11/26/2024 (Approximate), Expires: 11/26/2024[facility] Comment on above:Expected: 11/26/2024 (Approximate), Expires: 11/26/2024Start: 11-26-2024 End: 94-59-1323Okllcnesawmanc vitamin b-12Vitamin B12 Lab Routine Malnutrition following gastrointestinal surgery History of gastric bypass Postsurgical malabsorption Expected: 11/26/2024 (Approximate), Expires: 11/26/2024[facility] Medical CenterComment on above:Expected: 11/26/2024 (Approximate), Expires: 11/26/2024Start: 11-26-2024 End: 42-02-7399ThzsjaHqcbtf Lab Routine Malnutrition following gastrointestinal surgery History of gastric bypass Postsurgical malabsorption Expected: 11/26/2024 (Approximate), Expires: 11/26/2024[facility] CenterComment on above:Expected: 11/26/2024 (Approximate), Expires: 11/26/2024Start: 11-26-2024 End: 67-65-5074Jeku [Mass/volume] in Serum or PlasmaIron Lab Routine Malnutrition following gastrointestinal surgery History of gastric bypass Postsurgical malabsorption Expected: 11/26/2024 (Approximate), Expires: 11/26/2024[facility] CenterComment on above:Expected: 11/26/2024 (Approximate), Expires: 11/26/2024Start: 11-26-2024 End: 96-97-4855Jgtzk panelLiver panel Lab Routine Malnutrition following gastrointestinal surgery History of gastric bypass Postsurgical malabsorption Expected: 11/26/2024 (Approximate), Expires: 11/26/2024[facility] Comment on above:Expected: 11/26/2024 (Approximate), Expires: 11/26/2024Start: 11-26-2024 End: 69-15-4536Jyijymqqulu Hormone, intactParathyroid Hormone, intact Lab Routine Malnutrition following gastrointestinal surgery History of gastric bypass Postsurgical malabsorption Expected: 11/26/2024 (Approximate), Expires: 11/26/2024[facility] SystemComment on above:Expected: 11/26/2024 (Approximate), Expires: 11/26/2024Start: 11-26-2024 End: 42-97-3906Frtnlch Vitamin B1, whole bloodThiamin Vitamin B1, whole blood Lab Routine Malnutrition following gastrointestinal surgery Historyof gastric bypass Postsurgical malabsorption Expected: 11/26/2024 (Approximate), Expires: 11/26/2024[facility] SystemComment on above:Expected: 11/26/2024 (Approximate), Expires: 11/26/2024Start: 11-26-2024 End: 80-18-9051Kwhpkwg A (Retinol)Vitamin A (Retinol) Lab Routine Malnutrition following gastrointestinal surgery History of gastric bypass Postsurgical malabsorption Expected: 11/26/2024 (Approximate), Expires: 11/26/2024[facility] SystemComment on above:Expected: 11/26/2024 (Approximate), Expires: 11/26/2024Start: 11-26-2024 End: 76-62-0428Pnnrtkt D 25 hydroxyVitamin D 25 hydroxy Lab Routine Malnutrition following gastrointestinal surgery History of gastricbypass Postsurgical malabsorption Expected: 11/26/2024 (Approximate), Expires: 11/26/2024[facility] SystemComment on above:Expected: 11/26/2024 (Approximate), Expires: 11/26/2024Start: 11-26-2024 End: 04-81-3664OrkgNnyk Lab Routine Malnutrition following gastrointestinal surgery History of gastric bypass Postsurgical malabsorption Expected: 11/26/2024 (Approximate), Expires: 11/26/2024[facility] SystemComment on above:Expected: 11/26/2024 (Approximate), Expires: 11/26/2024Start: 11-26-2024 End: 91-86-2002Jhsthws encounter procedureProMedica Physicians General Surgery-BariatricStart: 80-65-4686Bcxpi BMI ScreeningAdult BMI Screening [facility] SystemStart: 85-67-5815Begdcse ScreeningTobacco Screening [facility]: 08-20-2024 End: 20-47-0924Jktywiu encounter ifnvvzeos18/19/2024 2:30 PM EST Office Visit [facility] [address] [place] [phone] Esthela Wilson MD [address] [place] [phone] [facility] Reconstructive/Plastic SurgeryStart: 07-28-2024 End: 27-14-3186Hjbcwds encounter cexakhnob30/26/2024 11:30 AM EST Procedure Visit [facility] [address] [place] [address] Kirby Heredia, DO [address] [place], [place] [phone] [facility] BCP OBStart: 07-22-2024 End: 56-22-4142Trpprcf encounter procedureNOMS BWM GENSComment on above:Rectal bleedingStart: 07-17-2024 End: 38-79-7815Puyigmi encounter ipvkqyoug21/15/2024 7:30 AM EST Procedure Visit [facility] Kirby Heredia, DO [address] [place], [place] [id number] [facility] EXT DEPStart: 07-09-2024 End: 29-34-1576Vorwkid encounter xrjizbqaf25/07/2024 9:30 AM EST Procedure Visit [facility] [address] [place] [address] Kirby Heredia, DO [address] [place], [place] [phone] [facility] BCP OBStart: 07-09-2024 End: 49-94-2354Ceovgnrjztoz / ancillary services qynmexwxio77/07/2024 9:30 AM EST Ancillary Procedure [facility] [address] [facility] [address] [facility] BCP OBStart: 07-06-2024 End: 15-95-7557Dboqvkq encounter /04/2024 1:00 PM EST Office Visit [facility] [address] [place] [address] Kirby Heredia, DO [address] [facility] [place] [address] ArrivedNOMS BCP OBComment on above:ArrivedStart: 06-25-2024 End: 48-56-3114Uhrctam encounter clxnknzja19/24/2024 6:00 AM EDT Procedure Visit [facility] Kirby Heredia, DO [address] [facility] [address] [place] [address] [facility] EXT DEPStart: 06-22-2024 End: 9022Jnonmyn encounter xuvwarlvh69/21/2024 3:30 PM EDT Office Visit [facility] [address] [place] [address] Kirby Heredia, DO [address] [facility] [address] [place] [address] [facility] BCP OBStart: 06-18-2024 End: 14-88-6283Atnruzlleepi / ancillary services epvduravaa79/17/2024 9:00 AM EDT Ancillary Procedure [facility] [address] [place] [phone] [facility] BCP OBStart: 06-11-2024 End: 79-57-6148Bkhhuob encounter procedureProMedica Physicians Reconstructive/Plastic SurgeryStart: 05-28-2024 End: 96-29-1506Ztipfgt encounter procedureNOMS BCP OBStart: 05-14-2024 End: 24-24-9356gKNA in Blood by Coagulation assayAPTT Lab Routine Menorrhagia with regular cycle Expected: 05/14/2024 (Approximate), Expires: 05/14/2025[facility] HealthcareComment on above:Expected: 05/14/2024 (Approximate), Expires: 05/14/2025Start: 05-14-2024 End: 14-23-3665NYFUFTWK Lab Routine Menorrhagia with regular cycle Expected: 05/14/2024 (Approximate), Expires: 05/14/2025[facility] HealthcareComment on above: Expected: 05/14/2024 (Approximate), Expires: 05/14/2025Start: 05-14-2024 End: 89-73-0329SS for pregnancyUS PELVIS-TRANSVAG IF INDICATED Imaging Routine Menorrhagia with regular cycle Expected: 05/14/2024(Approximate), Expires: 05/14/2025[facility] HealthcareComment on above:Expected: 05/14/2024 (Approximate), Expires: 05/14/2025Start: 05-14-2024 End: 44-95-9867Sjcvfhy encounter iohrdwcvn03/12/2024 9:20 AM EDT Office Visit [facility] [address] [place] [phone] Kirby Heredia DO [address] [facility] [address] [place] [address] [facility] OBComment on above:ArrivedStart: 72-30-3189Xvyst-19 Vaccine ( season)Covid-19 Vaccine ( season)[facility]: 15-87-4942Xpzje-19 Vaccine ( season) Covid-19 Vaccine ( season)[facility] Hospitaltart: 26-00-6119Mhkgjjtvy vaccinationAkron Children's Hospitaltart: 37-79-2759Vgpwccogpr ScreeningDepression ScreeningProMedica Health SystemStart: 11-28-2023 End: 29-16-4394Zhnuxhk encounter lvnipkrbl59/28/2024 11:00 AM EDT Office Visit [facility] [address] [place] [address] [place] [address] Rivka Koenig, MILK ROUTE DELIVERER-HANDBELL CHOIR DIRECTOR [address] [place] [address] [facility] Start: 12-62-6279Gqwattfdd vaccinationAkron Children's Hospitaltart: 86-96-2223Vlmoh BMI Follow Up PlanAdult BMI Follow Up FirstHealthtart: 09-02-2022 DEPRESSION ASSESSMENTDEPRESSION ASSESSMENTAkron Children's Hospitaltart: 08-20-2022 End: 83-76-263899722913-wrboxbrbmiepts D3 [Mass/volume] in Serum or [facility] Work Phone: Comment on above:Expected: 08/20/2022, Expires: 10/20/2022Start: 08-20-2022 End: 01-94-6055BFB BY IFA WITH REFLEXSamaritan Hospital Work Phone: Comment on above:Expected: 08/20/2022, Expires: 10/20/2022Start: 08-20-2022 End: 46-45-8756Iwjsbz citrullinated peptide IgG Ab [Units/volume] in Serum or [facility] Work Phone: Comment on above:Expected: 08/20/2022, Expires: 10/20/2022Start: 08-20-2022 End: 66-21-0200XWA double strand Ab [Units/volume] in Serum by Immunoassay [facility] Work Phone: Comfguz on above:Expected: 08/20/2022, Expires: 10/20/2022Start: 08-20-2022 End: 18-05-7663Avjukefnshw sedimentation rateSamaritan Hospital Work Phone: Comsenq on above:Expected: 08/20/2022, Expires: 10/20/2022Start: 08-20-2022 End: 70-41-6820Tnianvrcnx factor [Units/volume] in Serum or [facility] Work Phone: Comtrvi on above:Expected: 08/20/2022, Expires: 10/20/2022Start: 80-02-4506Lmukkkofn vaccinationINFLUENZA (#1)[facility] Start: 39-47-2523UowffrtufOhio State University [facility] Work Phone: Start: 49-32-7171ZisgcttvoOhio State University Wexner [facility] Center [facility]tr Work Phone: Start: 48-58-3891BLDSZO, Provider: Ashu Benson, Status: Pen, Time: 7:30 AMEGDANS, Provider: Ashu Benson, Status: Pen, Time: 7:30 UPKH-Dedugwi-BggnaxOur Lady Of The Lake [facility] Work Phone: start: 62-20-3790UKRGVOMGZO ASSESSMENTDEPRESSION ASSESSMENTAkron Children's Hospitaltart: 33-61-7362LFIIQSDNTO, Provider: Allyn Mcdaniels, Status: Pen, Time: 1:00 PMVIRFUVHOME, Provider: Allyn Mcdaniels, Status: Pen, Time: 1:00 NQDO-Bonoygnmux-Oadrw Work Phone: Start: 71-66-0416DXAOHEFIPM, Provider: Allyn Mcdaniels, Status: Pen, Time: 1:00 PMVIRFUVHOME, Provider: Allyn Mcdaniels, Status: Pen, Time: 1:00 JOFU-Bqmvmbi-DjfsisBeauregard Memorial Hospital Work Phone: start: 22-73-5740TXJ TESTINGHPV TESTINGAkron Children's Hospitaltart: 06-91-0933GDR TESTINGPAP TESTINGAkron Children's Hospitaltart: 02-07-2008 Screening for malignant neoplasm of cervixAkron Children's Hospitaltart: 2006 DTaP,Tdap and Td Vaccines (1 - Tdap)DTaP,Tdap and Td Vaccines (1 - Tdap) VMob SystemStart: 44-80-1721Ghvfvfdpf B Vaccine (1 of 3 - 19+ 3-dose series)Hepatitis B Vaccine (1 of 3 - 19+ 3-dose series)[facility] Hospitaltart: 89-23-6220Wysts microalbumin profileCleSt. John of God Hospitaltart: 20-02-0703Nahxbja ScreeningAnxiety ScreeningAkron Children's Hospitaltart: 55-03-3827Mvipjtdxqu Screening Depression ScreeningAkron Children's Hospitaltart: 56-59-5155SAPENYOQT C SCREENING HEPATITIS C SCREENINGAkron Children's Hospitaltart: 29-06-5195Flojazbfy C screening Hepatitis C ScreeningAkron Children's Hospitaltart: 07-07-8322MOT SCREENINGHIV SCREENING [facility] Hospitaltart: 99-85-6678EHG screeningHIV ScreeningMount Carmel Health System Start: 68-94-6238ZFYZD-19 VACCINE (#1)COVID-19 VACCINE (#1)[facility] Start: 94-74-4975CDZRAUCNI B (1 of 3 - 3-dose series)HEPATITIS B (1 of 3 - 3- dose series)[facility] Hospitaltart: 32-73-1195Ljbinsjve B Vaccine (1 of 3 - 3- dose series)Hepatitis B Vaccine (1 of 3 - 3-dose series)[facility] SystemBiopsy endometriumBiopsy endometrium Procedures Routine Menorrhagia with regular cycle Ordered: 05/28/2024[facility] Work Phone: comment on above:Ordered: 05/28/2024BC W Auto Differential panel - BloodCBC and differential Lab Routine Menorrhagia with regular cycle Ordered: 05/14/2024[facility] HealthcareComment on above:Ordered: 05/14/2024ytology Cervical or vaginal smear or scraping studyPap Smear Pathology and Cytology Routine Well woman exam with routine gynecological exam Ordered: 07/06/2024[facility] Work Phone: comment on above:Ordered: 07/06/2024HEA-sulfateDHEA- sulfate Lab Routine Menorrhagia with regular cycle Ordered: 05/14/2024[facility] HospitalComment on above:Ordered: 05/14/2024 End: 59-19-5636UvhwbmrlahygqxuwrleexpruntCNN GI Routine Malnutrition following gastrointestinal surgery Change in bowel habits Pain of upperabdomen 1 Occurrences starting 01/27/2025 until 01/27/2026ProOhiohealth [facility] Hospitalca Health SystemComment on above:1 Occurrences starting 01/27/2025 until 01/27/2026EstradiolEstradiol Lab Routine Menorrhagia with regular cycle Ordered: 05/14/2024[facility] Comment on above:Ordered: 05/14/2024Follicle stimulating hormoneFollicle stimulating hormone Lab Routine Menorrhagia with regular cycle Ordered: 05/14/2024[facility] HealthcareComment on above:Ordered: 05/14/2024hCG, quantitative, pregnancyhCG, quantitative, Lab Routine Menorrhagia with regular cycle Ordered: 05/14/2024[facility] HealthcareComment on above:Ordered: 05/14/2024 Hemoglobin A1c/Hemoglobin.total in BloodHemoglobin A1c Lab Routine Menorrhagia with regular cycle Ordered: 05/14/2024[facility] HealthcareComment on above:Ordered: 05/14/2024Human papilloma virus DNA [Presence] in Unspecified specimen by Probe with amplificationHPV DNA probe, amplified Microbiology Routine Well woman exam with routine gynecological exam Ordered: 07/06/2024[facility] HealthcareComment on above:Ordered: 07/06/2024Luteinizing hormoneLuteinizing hormone Lab Routine Menorrhagia with regular cycle Ordered: 05/14/2024[facility] HealthcareComment on above:Ordered: 05/14/2024 End: 22-41-0995Vav any jt upper extremity w/o contrast matrSCCI Hospital Lima Work Phone: Comment on above:1 Occurrences starting 08/20/2022 until 4Patient EducationOhio State University Wex[facility] Medical Center Ctr Work Phone: Patient referralOhio State University Wexner Medical Center Ctr Work Phone: Prothrombin time (PT) in Blood by Coagulation assay Protime-INR Lab Routine Menorrhagia with regular cycle Ordered: 05/14/2024[facility] [employer] Work Phone: comment on above:Ordered: 05/14/2024 End: 16-13-3961Xkcsw spine cervical 4 or 5 viewsXR CERV OTHER 4V AP/LAT/OBL Radiology Routine Lateral epicondylitis of both elbows Left elbow pain Right elbow pain Fibromyalgia Anxiety Sleep apnea, unspecified type Cervicalgia 1 Occurrences starting 08/20/2022 until [facility] Work Phone: Comment on above:1 Occurrences starting 08/20/2022 until 4Radex spine cervical 4 or 5 viewsXR CERV OTHER 4V AP/LAT/OBL Radiology Routine Lateral epicondylitis of both elbows Left elbow pain Right elbow pain Fibromyalgia Anxiety Sleep apnea, unspecified type Cervicalgia 08/20/2022 10:54 AM [facility] Work Phone: Thyrotropin [Units/volume] in Serum or PlasmaTSH Lab Routine Menorrhagia with regular cycle Ordered: 05/14/2024[facility] HealthcareComment on above:Ordered: 05/14/2024Thyroxine (T4) free [Mass/volume] in Serum or PlasmaT4, free Lab Routine Menorrhagia with regular cycle Ordered: 05/14/2024 [facility] HealthcareComment on above:Ordered: 05/14/2024 End: 41-19-5991NLT with ReflexTSH with Reflex Lab Routine Polina's disease 1 Occurrences starting 08/29/2023 until 08/29/2024[facility] Work Phone: comment on above:1 Occurrences starting 08/29/2023 until 08/29/2024TSH with ReflexTSH with Reflex Lab Routine Polina's disease 08/29/2023 8:51 AM VectorLearningAd[facility] Center End: 94-71-9237Pa lmtd joint/oth nonvasc xtr strux r-t w/imgUS ELBOW LEFT Radiology Routine Lateral epicondylitis of both elbows 1 Occurrences starting 09/17/2022 until 10/17/2023[facility] Work Phone: Comment on above:1 Occurrences starting 09/17/2022 until 10/17/2023[facility] Payers DatePayer CategoryPayerPolicy [id number] Care HMO (unspecified)[id number] [id number]-[id number] [id number] 2023Medicaid HMO [id number] Health Insurance [id number] [id number] 2.16840.1.226487.3.57[id number] 2.840.1.645843.3.57[id number] 2.840.1.739763.3.57[id number] 2.840.1.529287.3.57[id number] 2.16840.1.894674.3.579.2.71[id number] 2.16840.1.927648.3.57[id number] 2.16840.1.689464.3.579.2.2[id number] 2.16840.1.662545.3.57[id number] 2.16840.1.869438.3.579.2.96[id number] 2.16840.1.559139.3.57[id number] 2.16.840.1.677872.3.57[id number] 2.16.840.1.872355.3.579.2.85[id number] 2.16840.1.517467.3.57[id number] 2.16840.1.556760.3.579.2.[id number] 2.16840.1.410322.3.579.2.8577 2057Yqzcaex59721769 2.16840.1.242097.3.579.2.494615-55-9840Iebzhgv9684719 2.840.1.579983.3.579.2.444024-13-3071Ccwfskz1800781 2.16840.1.925540.3.579.2.309756-49-0886Qpobiow5396066 2.840.1.040927.3.579.2.453564-75-1014Hbxulcd5338491 2.16840.1.602834.3.579.2.164069-67-2610Huusnig8764148 2.840.1.303173.3.579.2.[id number] 2.16840.1.365942.3.579.2.81750-30-2052Kkagkoq47372287 2.16840.1.448719.3.579.2.68023-73-9217Kilyyfb93846750 2.16840.1.066494.3.579.[id number] 2.16840.1.951361.3.579.2.99424-88-4458Ysmnkon21106821 2.16.840.1.433243.3.579.[id number] 2.16.840.1.694766.19 60-16-2513Qgjvfir480869965128 2.16.840.1.267802.36Ypsyetp51446776 2.16.840.1.780301.3.579.2.003Igzsbjg27273144 2.16.840.1.712357.3.579.2.531 Stlgqwa39157595 2.16.840.1.681637.3.579.2.531 Social History DateTypeDetailFacilityStart: 12-04-2022 End: 64-98-7982Xslvlfr every day smokerCurrent every day smokerCoshocton Regional Medical Center Work Phone: Start: 12-04-2022 End: 65-97-4977Yke Assigned At [facility]: 11-07-2021 End: 12-78-9802Immfpmi smoking status NHISNever smoked tobacco (finding) [facility] Andersontart: 09-43-9846Njz Assigned At [facility]Female [facility] HospitalTobacco smoking status NHISTobacco smoking consumption unknownNapoleon ClinicStart: 44-72-4643Geh Assigned At BirthNot on fileNapoleon ClinicStart: 07-10-2022 End: 55-74-7713Dkleitpm to SARS-CoV-2 (event)Not sureAkron Children's Hospitaltart: 12-04-2022 End: 44-81-9686Ojxkadu smoking status NHISEx-smokerAkron Children's Hospitaltart: 10-31-2010 End: 53-73-4029Odbkmui of tobacco useCurrent smokerAkron Children's Hospitaltart: 10-31-2010 End: 98-96-6251Xwxvnzu of tobacco useCigarette SmokerAkron Children's Hospitaltart: 12-04-2022 End: 56-05-2216Npjeaeh use and exposureSmokeless tobacco non-userAkron Children's Hospitaltart: 13-18-0032Kftdbsau Score (1-100), lower number is lower risk86 [facility] Hospitaltart: 15-61-2360Pjpmcu identityIdentifies as female gender (finding)[facility] Hospitaltart: 48-45-3475Lcoiua orientationHeterosexual (finding)[facility] Hospitaltart: 05-28-2024 End: 85-12-3983Uibadfsez beverage intakeEx-drinker (finding)[facility] Start: 67-59-0618Dngqcbb CommentCaffeine: 1-2 cups/dayNOMS HealthcareStart: 99-98-1264CgeYdfkmlj sex unknown (finding)[facility] Start: 37-58-1703Tlrgypa smoking status NHISSmokes tobacco dailyNOMS Healthcare Start: 08-20-2024 End: 53-65-3289Rzgwmphve beverage intakeCurrent non-drinker of alcohol (finding) [facility] SystemStart: 79-43-9282Mwvsgsw Comment2-3 cigarettes a day [facility] SystemStart: 27-00-9621RdvFwqxcy (finding)[facility] SystemHistory of tobacco usePassive smokerProMedica Health System Goals DatePatient GoalDesired Activity/StatePersonal health goal Functional Status TriyHxpclxdjipLpusiaNiebtbpd25-92-9266Jrhpqdzkzp StatusN/[facility]11-18-2024Functional StatusN/[facility]11-14-2024 Functional StatusN/AExecutive [facility]rology of [facility] Clinical Notes 01-31-2015 to 05-20-2025 Note Date & TlktQvvaTjbizrre70-93-1916 Evaluation note* Diagnosis Onset Date Resolution Status Admit Date Arthritis of lumbosacral spine acuteSeptember 2024 9:33amChronic painacuteSeptember 2024 9:33am Right hip painnoneactiveSeptember 2024 9:33amSinusitis, acute, maxillary acuteOctober 2024 2:40pm [facility] Work Phone: [phone]) 194-210008-28-2025 History of Present illness Narrative* Opal Cardenas, 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 Exam conducted with a division head present. Vitals: Estimated body mass index is [...] restarting medication. Metformin will be sent to [facility]. Documented by Opal Cardenas LPN on behalf of: Kirby Heredia DO documented in this encounterHannibal Regional HospitalLgamympcfl79-17-6807 Telephone encounter Note* Telephone Encounter - Gayla [...] could also get it in her mouth/throat? [facility] HospitalHhyqzimege14-85-2411 Miscellaneous Notes* Telephone Encounter - Gayla Naylor [...] it in her mouth/throat? documented in this encounterHannibal Regional HospitalVaiplcqvth41-85-5419 History of Present illness Narrative* Rivka Koenig, DYLAN-HANDBELL CHOIR DIRECTOR - 02/19/2025 7:40 AM EDT Subjective Patient ID: Michelle Rivera is a 40 y.o. female. OBDULIO Martinez presents to the office to discuss ADHD. She reports she was diagnosed as a child by her laborer yard and also followed with Psychiatry for ADHD [...] reports she is going to school in [place] and is driving there daily, she is [...] constantly moving. She reports she has trialed pjhy-hix-qavkzcr supplements and herbal medications but this has [...] and she is willing to try Ashwagandha kefz-xhx-novgozc. We will also go ahead and get [...] DAVID Lerner 02/19/25 1021 documented in this encounterAd[facility]06-[facility]-2025 History of Present illness Narrative* Petey De Guzman RD - 02/05/2025 8:00 AM EDT Bariatric Medical Nutrition Therapy Nutritional Assessment/Education Session: Post-op Michelle Rivera is a 39 y.o. female who presents for medical nutritional therapy after weight loss surgery. She had a Gastric Bypass in October 2022: Preoperative weight: 256 lb BMI 42.6 1 wk post-op: 245 lb BMI 40.8 3 mo (PA/SUPERVISOR TILE AND MOTTLE visit): 202 lb BMI 33.7 6 mo (PA/SUPERVISOR TILE AND MOTTLE visit): 160 lb BMI 26.7 12 mo [...] get a pizza salad. Occasionally goes to [employer] to get egg bites and sugary coffee. 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 Had stopped her ADHD medication a while ago), Body Bernard water 1L/day, chews ice - craves it, [...] 804 End time: 914 documented in this encounterOhioHealth Arthur G.H. Bing, MD, Cancer CenterParkt06-06-2025 Instructions* Patient Instructions* Petey De Guzman RD - 02/05/2025 8:00 AM EDT Read the [facility] Guide. If you re looking for general health and wellness resources, please visit [email or web address]. documented in this encounterOhioHealth Arthur G.H. Bing, MD, Cancer CenterParkt05-28-2025 Miscellaneous Notes* Telephone Encounter - Raquel Espinal [...] of appt for school today. Uploaded to [employer]. * Telephone Encounter - Gricel Reynoso CNA [...] not improving and picked up samples at [facility] location 02/05/2025. Patient also inquired about doctor's note for dates 01/28/2025 and 01/29/2025. MA informed Kathy Werner RN about patient's request. Medication: Linzess Dosage:290mcg Quantity: 16 capsules Lot #: [id number] Exp: 01/2025 Pharmaceutical Co.: [employer] * Telephone Encounter - Kathy Werner RN - 01/27/2025 10:25 AM EDT Patient arrived @ [facility] asking for Linzess samples and letter to be excused from school 01/28 and 01/29 d/t symptoms post EGD. Communicated with patient through BENITA Gilmore. Letter sent to patient's Cert[facility] Systemsnorwalk hospitalt. documented in this encounterAdams County Regional Medical Center05-28-2025 Telephone encounter Note* Telephone Encounter - Raquel [...] at [facility] ASA2 F/U in 3 months [facility]05-28-2025 Telephone encounter Note* Telephone Encounter - Aliza Whyte - 01/27/2025 10:25 AM EDT Requested a letter to provide proof of appt for school today. Uploaded to [employer]. [facility]05-28-2025 Telephone encounter Note* Telephone Encounter - Gricel Reynoso CNA - 01/27/2025 10:25 AM EDT 01/28/25 called pt and scheduled her EGD on 03/25/25 @ 1:30. Mailed out EGD instructions today BR [facility]05-28-2025 Telephone encounter Note* Telephone Encounter - Gricel Reynoso CNA - 01/27/2025 10:25 AM EDT 01/28/25 Pt would like a note to excuse her from School for 01/28/25 due to the bowel prep she was taking per SH. br [facility]05-28-2025 Telephone encounter Note* Telephone Encounter - Deirdre Baker CMA - 01/27/2025 10:25 AM EDT Patient reported constipation not improving and picked up samples at [facility] 02/05/2025. Patient also inquired about doctor's note for dates 01/28/2025 and 01/29/2025. MA informed Kathy Werner RN about patient's request. Medication: Linzess Dosage:290mcg Quantity: 16 capsules Lot #: [id number] Exp: 01/2025 Pharmaceutical Co.: [employer] [facility]05-28-2025 Telephone encounter Note* Telephone Encounter - Kathy Werner RN - 01/27/2025 10:25 AM EDT Patient arrived @ [facility] asking for Linzess samples and letter to be excused from school 01/28 and 01/29 d/t symptoms post EGD. Communicated with patient through BENITA Gilmore. Letter sent [facility]05-28-2025 History of Present illness Narrative* Rob Lombardo DO - 01/27/2025 8:45 AM EDT [facility] New Patient Visit - [...] 11/28/2022 Performed by Nichol Barrett MD at [facility] 07/17/2024 with Bilateral Salpingectomy [...] morning before breakfast., Disp: , Rfl: PNV,calcium 30-guit-lsvly acid ( VITAMIN PLUS LOW IRON) 27 [...] you for your understanding. Rob Lombardo D.O. [facility] [place] [address] PH: [phone] documented in this encounterOhioHealth Arthur G.H. Bing, MD, Cancer CenterNeXplore [facility] Regional [id number] Instructions* Patient Instructions* Rob Lombardo DO - [...] F/U in 3 months documented in this encounterAdams County [facility]05-16-2025 History of Present illness Narrative* LENNOX Quiroz - 01/15/2025 9:15 AM EDTSummary: 2 yr f/u. RRYGB. 11/28/22. Dr. Barrett. Images from the original note were not included. [facility] GENERAL SURGERY-BARIATRIC [address] [place] [phone] Subjective Patient ID: Michelle Rivera is a 39 y.o. female who is an established patient. HPI: Michelle Rivera had a Robotic Janelle-en-Y Gastric Bypass performed by Dr. Barrett at [facility] on November 28, 2022. Returns today for [...] problems. Has seen Dr. Johnathan Najera at [facility] following July 2024, tubal ligation and endometrial ablation, after which she developed worsening of her constipation. He felt her rectal bleeding may be due to internal hemorrhoids. Recommended MOM qd, high fiber diet, COS if sxs continued. Well water qd. 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 Resolved Height: 5' 5 165.1 cm [place] body weight: 150 lb BMI 25.0 Personal goal: 135 lb healthy, able to play with my children 03/22/22: [address] 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 comfortable 125 lb.). HENT: Negative for trouble swallowing. Respiratory: Negative for shortness of breath. Cardiovascular: Positive for palpitations. Negative for chest pain. Gastrointestinal: Positive for abdominal pain (epigastric and right upper quadrant occasionally, taking no medication.), constipation (Colace, MOM, Miralax. Using suppositories and enema not working.Seeing Dr. Najera in [facility].) and vomiting (August 25, vomiting several [...] ear normal. Nose: Nose normal. Mouth/Throat: Lips: [place]. Mouth: Mucous membranes are moist. No oral [...] oriented to person, place, and time. 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, ambulates easily unassisted from [...] [facility] Services ([facility]); Future - [facility] [place], [place]; Future - PNV,calcium 14-gito-nfmcy acid ( VITAMIN PLUS LOW IRON) 27 [...] Nutrition Services ([facility]); Future - [facility] [place], [place]; Future - PNV,calcium 88-nijd-ljsda acid ( VITAMIN PLUS LOW IRON) 27 [...] Nutrition Services ([facility]); Future - [facility] [place], [place]; Future - PNV,calcium 44-kmhg-emutj acid ( VITAMIN PLUS LOW IRON) 27 [...] you months ago she started taking an huig-fct-ohicqzq organ meat supplementtwice a day. She does [...] and Colace. Has seen Dr. Najera at [facility] for evaluation who thought her rectal bleeding [...] deficiencies. Asked her to stop taking the wjcw-pxd-wlesfbz organ meat supplement. Continue daily vitamin with iron. Maintain goal. Resume Colace b.i.d.. Resume MiraLax daily. Referred to GI to evaluate chronic constipation. May need colonoscopy. Check abdominal ultrasound to rule out gallstones. Thank you for allowing us to participate in the care of your patient. Sincerely, Stefano HIGH-Jacinto CC: Rivka Koenig, MILK ROUTE DELIVERER-HANDBELL CHOIR DIRECTOR MD CHLOE Nogueira / Nichol Barrett MD, FACS, CHLOE / Osvaldo Vaughn MD FACS Bariatric Surgery [facility] [place] [address] [place] [address] [facility] [place] [address] [place], [place] [address] [facility] - [place] [address] [place], [place] [address] [facility] - [place] [address] [place], [place] [address] LENNOX QUIROZ PA 01/15/25 1637 documented in this encounterOhioHealth Arthur G.H. Bing, MD, Cancer CenterNeXplore [facility]water Regional [id number] Instructions* Patient Instructions* LENNOX Quiroz - 01/15/2025 9:15 AM EDT See gi about constipation See dietitian about intolerance of meats. See dietitian and do food and drink log in the meantime. Try 1/2-3/4 cup, 4-6 oz serving every 3-4 hours awake to achieve at least 70 grams protein per day. See [employer] for pictures. Exercise goals of at least [...] Congratulations on your progress! documented in this encounterAdams County [facility]05-[facility] History of Present illness Narrative* Perla Bajwa RN - 01/12/2025 2:06 PM EDT Labs for annual appointment. documented in this [facility]01-09-2025 Evaluation + Plan noteExtracted from:Title:chronic painAuthor:Kamaljit May [...] Pain MgtAuthor:Remington Price Jr., DO GDate:09/10/24 Plan [place] Society of Anesthesiologists (ASA) physical status classification: Class III. Anesthetic Preoperative Plan: Anesthesia Monitored anethesia care. Future Appointments Appointment Date:09/18/2024 06:30:00 AM Scheduled Provider: Location:.[place]ICAL [place] Appointment Type:PT Pelvic Floor/UI (FT) Appointment Date:09/25/2024 06:30:00 AM Scheduled Provider: Location:.[place]ICAL [place] Appointment Type:PT Pelvic Floor/UI (FT) Appointment Date:09/25/2024 08:00:00 AM Scheduled Provider:DORETHA Gong APRN, [place] [facility] Location:[facility] Appointment Type:URO Office Visit Appointment Date:10/01/2024 07:00:00 AM Scheduled Provider: Location:.[place]ICAL [place] Appointment Type:PT Pelvic Floor/UI Re-Eval (FT) Appointment Date:10/02/2024 08:15:00 AM Scheduled Provider:Amy Durbin PA-C Location:[facility] Appointment Type:Pain Management - Follow Up (FT) [facility] 01-09-2025 NoteProgress Note-Physician Patient: MICHELLE RIVERA Age: [...] day(s), # 30 tab(s), Refills(s) 11, Pharmacy: [facility], 165, cm, 07/20/24 10:51:00 EST, Height/Length Dosing, 69, kg, 07/20/24 10:51:00 EST, Weight Dosing vibegron 75 mg oral tablet: 75 mg = 1 tab(s), Oral, Daily, X 30 day(s), # 30 tab(s), Refills(s) 11,Pharmacy: [facility], 165, cm, 07/20/24 10:51:00 EST, Height/Length [...] All Problems Acid reflux / SNOMED CT 496225761 / Confirmed Anxiety with depression / SNOMED CT 830766575 / Confirmed Asthma / SNOMED CT 749891633 / Confirmed Back spasm / SNOMED CT 342368473 / Confirmed Fibromyalgia / SNOMED CT 729586945 / Confirmed Polina's disease / SNOMED CT 61247766 / Confirmed Heart murmur / SNOMED CT 385970896 / Confirmed Herpes simplex / SNOMED CT 726621773 / Confirmed History of degenerative disc disease / SNOMED CT 719030270 / Confirmed Hypertension / SNOMED CT 8668857861 / Confirmed Hypothyroidism / SNOMED CT 09038060 / Confirmed Microhematuria / SNOMED CT 786080242 / Confirmed OAB (overactive bladder) / SNOMED CT 4364404827 / Confirmed Sleep apnea / SNOMED CT 119254377 / Confirmed Histories Past Medical History: No active or resolved past medical history items have been selected or recorded. Procedure history: Partial hysterectomy/ablation (5437512891) on 07/17/2024 at 39 Years. Gastric bypass (7958954946) on 11/28/2022 at 37 Years. Adenoidectomy (916325542). Comments: 07/20/2024 10:20 Abbey Parada 01/2001 Tonsillectomy (587835688). Comments: 07/20/2024 10:20 Abbey Parada 01/2001 Social History Social & Psychosocial Habits Tobacco 07/20/2024 Tobacco Use: Former smoker, quit more Type: Cigarettes Concerns about tobacco use in household: No Smoking Cessation Yes . Physical Examination Airway: Mallampati classification: II (soft palate, fauces, uvula visible). Plan [place] Society of Anesthesiologists (ASA) physical status classification: Class III. Anesthetic Preoperative Plan: Anesthesia Monitored anethesia care.[facility] PrebleComment on above:Result Comment: Electronically Signed By: Remington Price Jr., DO\Date and Time Signed: 09/10/24 06:58 [id number] History of Present illness Narrative* Esthela Wilson MD - 08/20/2024 2:30 PM EST Plastic & Reconstructive Surgery MD Loreto Diez PA-C [address] [address] Office [phone] Plastic Surgery Consultation Reason for visit : Chief Complaint Patient presents with New Patient Panniculectomy Consult History of present illness: Michelle Rivera 39 y.o. female is here today for consultation regarding excess abdominal skin. She notes that she has had excess skin for a period of 1 year. She has had weight loss surgery, Janelle En Y 11/28/2022. She also has tried technical sales manager consultation, prescription appetite suppressants: Adipex and Ozempic, [...] Performed by Nichol Barrett MD at [facility] ENDOMETRIAL ABLATION 07/17/2024 with Bilateral Salpingectomy RADIOFREQUENCY [...] morning before breakfast., Disp: , Rfl: PNV,calcium 83-igzx-ghmgs acid ( VITAMIN PLUS LOW IRON) 27 [...] this note were generated using voice recognition [employer] dictation software. Although every effort was made to ensure the accuracy of this automated developer advocate, some errors in developer advocate may have occurred. - LORETO LEBLANC PA-C [...] ESTHELA WILSON MD 08/20/24 documented in this encounterOhioHealth Arthur G.H. Bing, MD, Cancer CenterNeXplore [facility] Regional [id number] History of Present illness Narrative* Zane Tera Shelley, CHANDLER - 08/13/2024 12:55 PM EST Pt presents today for a pre-enrollment Physical Exam for [facility] Massage Therapy program. Pt verifiedby ID. [...] ear normal. Nose: Nose normal. Mouth/Throat: Lips: [place]. Mouth: Mucous membranes are moist. Pharynx: Oropharynx [...] (Primary) She presents for physical today for Replaced By [facility] physical. VS stable. Physical exam completed and WNL. Paperwork completed and scanned. 2. Encounter for wellness examination in adult See above. documented in this encounterHannibal Regional HospitalPsmmyqvjls79-61-3945 History of Present illness Narrative* Marcelina Khan, [...] nursing note reviewed. Exam conducted with a division head present. Vitals: Estimated body mass index is [...] of: Kirby Heredia DO documented in this encounterHannibal Regional HospitalXryliqhxcv40-08-2126 History of Present illness Narrative* Lidia Najera [...] Use: Not At Risk (11/03/2020) Received from [facility] AUDIT-C Frequency of Alcohol Consumption: Never Average Number of Drinks: Not on file Frequency of Binge Drinking: Not on file Depression: Not at risk (03/04/2023) Received from [facility] PHQ-2 Total Score: 0 Physical Activity: Not [...] you, Braxton Najera, DO documented in this encounterHannibal Regional HospitalAfqnxpwuxt21-00-0230 NotePatient Education Obstetrics and Gynecology Overactive Bladder, [...] health care provider. General instructions ??? Take dmxb-jgo-opbejyb and prescription medicines only as told by [...] you drink, and whe (more content not included)...[facility]11-18-[facility] Evaluation + Plan note Extracted from:Title:Pain Managment [...] not want to use this. We discussed rdjw-vck-ldqauka options such as Tylenol. She is going [...] will follow-up 3 weeks after. SEAN score: 52%.[facility] [id number] NoteConsultation Note Patient: MICHELLE RIVERA Age: 39 [...] gastric bypass. She does not take any akhn-szq-tnvvwbn medications because of this. She has done [...] Problems Anxiety with depression / SNOMED CT 716234267 / Confirmed Back spasm / SNOMED CT 712297994 / Confirmed Fibromyalgia / SNOMED CT 420436494 / Confirmed Polina's disease / SNOMED CT 47659424 / Confirmed Herpes simplex / SNOMED CT 023997517 / Confirmed History of degenerative disc disease / SNOMED CT 625534520 / Confirmed Hypothyroidism / SNOMED CT 84008533 / Confirmed Hypertension / SNOMED CT 1521473349 / Confirmed Heart murmur / SNOMED CT 841799307 / Confirmed Sleep apnea / SNOMED CT 699536047 / Confirmed Asthma / SNOMED CT 413355833 / Confirmed Acid reflux / SNOMED CT 802953206 / Confirmed Histories Past Medical History: No active or resolved past medical history items have been selected or recorded. Family History: Diabetes mellitus Grandparent Father Asthma Sister Hypertension Grandparent Father Mother Congenital heart disease Grandparent Hyperlipidemia Grandparent Father Mother Cancer Mother Procedure history: Partial hysterectomy/ablation (SNOMED CT 1678926713) on 07/17/2024 at 39 Years. Gastric bypass (SNOMED CT 9299661508) on 11/28/2022 at 37 Years. Adenoidectomy (SNOMED CT 113160385). Comments: 07/20/2024 10:20 Abbey Parada 01/[address] Tonsillectomy (SNOMED CT 726107362). Comments: 07/20/2024 10:20 Abbey aPrada 01/2001 Social History Social & Psychosocial Habits [...] with bilateral facet (more content not included)... [facility] PrebleComment on above:Result Comment: Electronically Signed By: Ramakrishna [...] simplex History of degenerative disc disease Hypothyroidism ([facility]/HCC) Social History Tobacco Use Smoking status: Former [...] nursing note reviewed. Exam conducted with a division head present. Vitals: Estimated body mass index is [...] of: Kirby Heredia DO documented in this encounterHannibal Regional HospitalJkctlxefwo93-64-8140 History of Present illness Narrative* Marjorie Jara - 05/28/2024 9:30 AM EDT Reason for Appointment: Patient ID: Michelle Rivera is a 39 y.o. female who presents for Pre-op Visit and Endometrial Biopsy Patient presents today for Pre Op/Endometrial Biopsy appointment. Patient is scheduled to undergo Da Sherrell assisted Bilateral Laparoscopic Salpingectomy and Endometrial Ablation with Manda on 06/25/[address] Heredia at [facility]. MEDICATIONS Current Outpatient Medications Medication Instructions Calcium-Cholecalciferol [...] nursing note reviewed. Exam conducted with a division head present. Vitals: Estimated body mass index is [...] reviewed, and patient is to proceed to [facility] OR. Patient stated she has complaints [...] of: Kirby Heredia DO documented in this encounterHannibal Regional HospitalYxbvbojjtx74-76-7324 History of Present illness Narrative* Opal Cardenas [...] nursing note reviewed. Exam conducted with a division head present. Vitals: Estimated body mass index is [...] appoint ment. Patient will discuss dates with planner scheduler and will return to clinic for Pre-op/Endometrial Bx appointment. Patient does not desire to have Nexplanon removed until after surgical procedure. Documented by Opal Cardenas LPN on behalf of: Kirby Hereida DO documented in this encounterHannibal Regional HospitalTpxozjhgsq70-54-6476 History of Present illness Narrative* Rivka Koenig APRN-HANDBELL CHOIR DIRECTOR - 11/28/2023 11:00 AM EDT Subjective Patient [...] Performed by Nichol Barrett MD at [facility] RADIOFREQUENCY ABLATION NERVES Dr. Malhotra TONSILLECTOMY age [...] DAVID Lerner 11/29/23 1645 documented in this encounterAdams County Regional Medical Center03-28-2024 History of Present illness Narrative* Nichol Barrett MD - 11/28/2023 9:00 AM EDT [facility] [address] [facility] [phone] SURGICAL WEIGHT LOSS PROGRAM PROGRESS NOTE [id number] Patient: Michelle Rivera Service Date: 11/28/2023 BP [...] Return in 1 year documented in this encounterAdams County Regional Medical Center03-28-2024 Miscellaneous Notes* Addendum Note - Perla Bajwa RN - 11/28/2023 9:00 AM EDTAddended by: PERLA BAJWA on: 11/28/2023 10:36 AM Modules accepted: Orders documented in this encounterAdams County Regional Medical Center03-28-2024 Note* Addendum Note - Perla Bajwa RN - 11/28/2023 9:00 AM EDTAddended by: PERLA BAJWA on: 11/28/2023 10:36 AM Modules accepted: Orders [facility]01-04-2024 NoteHNO ID: [id number] Author: MARCELINA MCMANUS OTR/L Service: ? Author Type: Occupational Therapist Type: Progress Notes Filed: 09/05/2023 12:57 Note Text: 09/05/2023 REHABILITATION AND SPORTS THERAPY OCCUPATIONAL THERAPY DISCONTINUANCE OF CARE Plan of Care Period: Start of Care Date: 02/22/23 Last Visit Date: 03/21/2023 Therapy Program: The following is a summary of the interventions provided for this episode of care; Therapeutic exercise, Manual therapy, Self-senior care management, and Patient/Family/Caregiver Education Assessment: Based on most recent visit, patient was progressing as expected toward functional goals based on pain levels and documented subjective information on progress. Unable to formally assess goal achievement due to non-compliance with therapy plan of care. Reason for Discontinuation of Care: Patient has not returned to therapy or scheduled additional follow-up appointments. Marcelina Mcmanus, OTR/L #[id number] Hospital12-28-2023 History of Present illness Narrative* Rivka Koenig, MILK ROUTE DELIVERER-HANDBELL CHOIR DIRECTOR - 08/29/2023 8:00 AM EST Subjective Patient [...] DAVID Lerner 08/29/23 0950 documented in this encounterOhioHealth Arthur G.H. Bing, MD, Cancer CenterNeXplore [facility] Regional HospitalAsqcyk80-31-2275 Miscellaneous Notes* Telephone Encounter - Yamile Chaney - 07/05/2023 3:33 PM EDT I have tried to reach patient multiple times. Phone goes to [employer]. I sent 2 my chart messages. I had a spot on hold for 07/15 for quite awhile. I had to remove the hold to offer to another patient. Yamile Martini documented in this encounterMount Carmel Health System10-05-2023 NoteHNO ID: [id number] Author: Frank Negron, DO Service: ? Author [...] treatment if they present. Frank Negron D.O. [facility]opa[facility] Rheumatologic [place] Team Physician, [facility] Consulting Physician, [place] Lexi Reddy, Flat Lock Operator [phone] Patient verbalizes understanding and agrees with the treatment plan as detailed above.[facility]09-14-2023 Evaluation note* Encounter Date Diagnosis Assessment [...] May,OtherAbove note written by Anthony Carcamo LPN, Academic Coordinator. Edited and approved by Dr. Ed Malhotra MD. [employer] Other 09-01-2023 NoteHNO ID: [id number] Author: Frank Negron, DO Service: ? Author Type: Physician Type: Progress Notes Filed: 05/03/2023 10:17 AM Note Text: Lateral epicondylitis of right elbow (primary encounter diagnosis) Minimally Invasive Tenotomy Informed Consent Consent Obtained: Written Coy Protocol A moment to CARE was completed. [...] retained foreign bodies accounted for. Frank Negron [facility]09-01-2023 Instructions* Patient Instructions* Frank Negron DO - [...] Best way to connect would be via [employer] or directly call Yamile at [phone]. If unable to connect, please proceed to [...] and beyond. Thank you for choosing the [facility] Medical Orthopedic team for your care. Frank Negron D.O. Sports & Medical Orthopaedics [facility] Sports Health Team Physician, [facility] Yamile Reddy, Flat Lock Operator [phone] documented in this encounterMount Carmel Health System09-01-2023 History of Present illness Narrative* Frank Negron DO - 05/03/2023 9:50 AM EDTAssociated Order(s): Minimally Invasive Tenotomy Post-Procedure Diagnose(s): Lateral epicondylitis of right elbow Lateral epicondylitis of right elbow (primary encounter diagnosis) Minimally Invasive Tenotomy Informed Consent Consent Obtained: Written Coy Protocol A moment to CARE was completed. [...] for. Frank Negron DO documented in this encounterMount Carmel Health System07-20-2023 NoteHNO ID: [id number] Author: Marcelina Mcmanus OTR/Emely Service: ? Author [...] Session Stop Time : 847 ANIYAH Merino #[id number] Hospital07-07-2023 Miscellaneous Notes* Telephone Encounter - Leslie Sparks RN - 03/08/2023 5:19 PM EDT Please see other encounter for documentation to patient. documented in this encounterMount Carmel Health System07-06-2023 NoteHNO ID: [id number] Author: ANIYAH Drew Service: ? Author Type: Occupational Therapist Type: Progress Notes Filed: 03/07/2023 11:52 AM Note Text: Episode Visit Count: 3 Therapist That Will Accept/Oversee The Plan Of Care: OFE Mancini, [facility] Start of Care Date: 02/22/23 Onset Date: [...] to not working this week) *Significant bilateral deckhand crab boat strength deficit (as noted below) *Good compliance [...] OBJECTIVE MEASURES WITH LEVEL OF FUNCTION: Female deckhand crab boat norms: age 35-39 R: 50-99 L: 49-91 Hand Strength: Court Clerk Position 2 Hand Strength R Court Clerk Position 2 (lbs): 21 lbs (Slight increase in pain to 3/10) L Court Clerk Position 2 (lbs): 40 lbs (No increase in pain remained at 1/10) TREATMENT: Therapeutic Exercise: 1: Discussed with patient her subjective experience since last treatment and reviewed her performance and compliance with plan of care 2: AROM bilateral wrist extension/flexion stretches with elbow flexed and also slightly extended performed 3: *[place] gel ball issued to patient; instructed, performed and added to home program gentle deckhand crab boat PREs to home program 4: *Modified IASTM utilizing the back edge of a spoon was instructed, performed and added to home program 5: Soft tissue circular massage performed Skilled Intervention: Patient was educated in proper exercise technique and purpose for exercises. Reviewed and educated patient on additions/changes for home exercise program as above (*). Home Program Assigned: 1: [place] gel ball: deckhand crab boat and hold each effort for 2-3 seconds, [...] Treatment Time Minutes (timed/untimed): 40 [facility]E [facility] of Present illness Narrative* ANIYAH Drew [...] to not working this week) *Significant bilateral deckhand crab boat strength deficit (as noted below) *Good compliance [...] OBJECTIVE MEASURES WITH LEVEL OF FUNCTION: Female deckhand crab boat norms: age 35-39 R: 50-99 L: 49-91 Hand Strength: Court Clerk Position 2 Hand Strength R Court Clerk Position 2 (lbs): 21 lbs (Slight increase in pain to 3/10) L Court Clerk Position 2 (lbs): 40 lbs (No increase in pain remained at 1/10) TREATMENT: Therapeutic Exercise: 1: Discussed with patient her subjective experience since last treatment and reviewed her performance and compliance with plan of care 2: AROM bilateral wrist extension/flexion stretches with elbow flexed and also slightly extended performed 3: *[place] gel ball issued to patient; instructed, performed and added to home program gentle deckhand crab boat PREs to home program 4: *Modified IASTM utilizing the back edge of a spoon was instructed, performed and added to home program 5: Soft tissue circular massage performed Skilled Intervention: Patient was educated in proper exercise technique and purpose for exercises. Reviewed and educated patient on additions/changes for home exercise program as above (*). Home Program Assigned: 1: [place] gel ball: deckhand crab boat and hold each effort for 2-3 seconds, [...] 40 OFE Drew CHT documented in this encounterMount Carmel Health System06-30-2023 NoteHNO ID: [id number] Author: ANIYAH Drew Service: ? Author Type: [...] more comfortable, but will try the tg Court Clerk 4.7 sleeve issued to day as an [...] status, discuss if improved fit of tg Court Clerk sleeves or if ordered alternate sleeve, discuss [...] for home exercise program as above (*). Self-Snf Management: 1: Reinforced modification of daily activity performance - especially during dog grooming tasks 2: Reinforced icing 3: Discussed compression sleeve options and reviewed some types available online 4: *tg Court Clerk (size 4.7 ) compression sleeve issued as [...] extremities vs. upper extremities (more content not included)...[facility]06-30-2023 History of Present illness Narrative* ANIYAH [...] more comfortable, but will try the tg Court Clerk 4.7 sleeve issued to day as an [...] status, discuss if improved fit of tg Court Clerk sleeves or if ordered alternate sleeve, discuss [...] for home exercise program as above (*). Self-Snf Management: 1: Reinforced modification of daily activity performance - especially during dog grooming tasks 2: Reinforced icing 3: Discussed compression sleeve options and reviewed some types available online 4: *tg Court Clerk (size 4.7 ) compression sleeve issued as [...] wrist flexion 3 sessions daily. 6: tg Court Clerk compression sleeve (size 4.7 ) can be utilized instead of the size F or G previously issued if less itchiness and more comfortable Billing Therapeutic Exercise Treatment Minutes: 25 Self-Care/Home Management Treatment Minutes: 30 Total Treatment Time Minutes (timed/untimed): 55 OFE Drew, CHT documented in this encounterMount Carmel Health System06-29-2023 Evaluation note* Encounter Date Diagnosis Assessment Notes [...] Jan,OtherAbove note written by Anthony Carcamo LPN, Academic Coordinator. Edited and approved by Dr. Ed Malhotra MD. [employer] Other 06-29-2023 Evaluation note* Encounter Date Diagnosis Assessment Notes Treatment Notes Treatment Clinical Notes Jan, Lumbosacral spondylosis without myelopathy (ICD-10 - M47.817) [employer] Other 06-23-2023 NoteHNO ID: [id number] Author: ANIYAH Drew Service: ? Author Type: Occupational Therapist Type: Progress Notes Filed: 03/01/2023 9:13 AM Note Text: Episode Visit Count: 1 Therapist That Will Accept/Oversee The Plan Of Care: OFE Mancini, CHT Start of Care Date: 02/22/23 Onset Date: (Rx 02/13/23, symptom onset 2-3 yrs with exacerbation past year) Patient Identified by Name and Date of : Yes [facility] OCCUPATIONAL THERAPY EVALUATION [...] assessment, treatment plan and goals established for deckhand crab boat strength by Progress Note update. Patient will [...] of Visits Planned: 8 Planned Treatment Interventions: Self-senior care management (02688), Neuromuscular re-education (10181), Manual therapy (64304), Therapeutic exercise (13700), Prefabricated orthosis fitting PLAN FOR NEXT VISIT: [...] and recently passed. 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 I [...] brace but sometimes I (more content not included)...[facility]06-23-2023 History of Present illness Narrative* LY Drew/Emely - 02/22/2023 9:30 AM EDT Episode Visit Count: 1 Therapist That Will Accept/Oversee The Plan Of Care: Estephania Whitt OT/Emely, CHT Start of Care Date: 02/22/23 Onset Date: (Rx 02/13/23, symptom onset 2-3 yrs with exacerbation past year) Patient Identified by Name and Date of : Yes [facility] OCCUPATIONAL THERAPY EVALUATION [...] assessment, treatment plan and goals established for deckhand crab boat strength by Progress Note update. Patient will [...] of Visits Planned: 8 Planned Treatment Interventions: Self-senior care management (46521), Neuromuscular re-education (28391), Manual therapy (94777), Therapeutic exercise (54848), Prefabricated orthosis fitting PLAN FOR NEXT VISIT: [...] and recently passed. 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 Self-Snf Management: 1: Body ergonomics and positioning discussed [...] Estephania Whitt OT/L, CHT documented in this encounterMount Carmel Health System06-15-2023 NoteHNO ID: [id number] Author: Frank Negron, DO Service: ? Author Type: Physician Type: Progress Notes Filed: 02/14/2023 12:57 PM Note Text: [facility] Documentation Note [facility] [place] REASON FOR VISIT / CHIEF COMPLAINT SERVICE [...] plan as detailed above. Frank Negron D.O. [facility] [place] Team Physician, [facility] Consulting Physician, [place] Lexi Reddy, Flat Lock Operator [phone] 02-14-2023 History of Present illness Narrative* Frank Negron DO - 02/14/2023 11:22 AM EDT Images from the original note were not included. [facility] Office Visit Documentation Note [facility] [place] REASON FOR VISIT / CHIEF COMPLAINT SERVICE [...] plan as detailed above. Frank Negron D.O. [facility] [place] Team Physician, [facility] Consulting Physician, [place] Lexi Reddy, Flat Lock Operator [phone] documented in this encounterMount Carmel Health System06-02-2023 Miscellaneous Notes* Telephone Encounter - Lesly Sherman [...] like to complete this witha facility in [place], [place]. Pt does not have the fax number but will try to get this and call us back. [place] [facility] phone [phone] Patient has been identified by name and birthdate. Duration of symptoms: N/A Person calling: self Call patient at: on cell [phone] (home) Was an appointment scheduled: No Closing statement: Results or non-symptom based questions: Thank you for calling [facility], your call will be returned within the next business day. Amy Wilson documented in this encounterMount Carmel Health System05-11-2023 Evaluation note* Encounter Date Diagnosis Assessment Notes Treatment Notes Treatment Clinical Notes December, Lumbosacral spondylosis without myelopathy (ICD-10 - M47.817) [employer] Other 04-20-2023 NoteHNO ID: [id number] Author: Frank Negron DO Service: ? Author Type: Physician Type: Progress Notes Filed: 12/20/2022 12:52 PM Note Text: Right elbow pain (primary encounter diagnosis) Lateral epicondylitis of both elbows Biologics Injection: R elbow Previously completed treatments/injections: Platelet Rich Plasma Informed Consent Consent Obtained: Written Coy Protocol A moment to CARE was completed. [...] retained foreign bodies accounted for. Frank Negron, [facility]04-20-2023 History of Present illness Narrative* Frank Negron, DO - 12/20/2022 12:29 PM EDTAssociated Order(s): Biologics Injection: R elbow Post-Procedure Diagnose(s): Right elbow pain; Lateral epicondylitis of both elbows Right elbow pain (primary encounter diagnosis) Lateral epicondylitis of both elbows Biologics Injection: R elbow Previously completed treatments/injections: Platelet Rich Plasma Informed Consent Consent Obtained: Written Coy Protocol A moment to CARE was completed. [...] for. Frank Negron DO documented in this encounterMount Carmel Health System04-13-2023 Miscellaneous Notes* Telephone Encounter - Therese Leblanc [...] would like someone to advise herat the [phone]. It is ok to leave a detailed VM if need Pt states she has a second # which is [phone] and that is the PT father Humphrey and you can leave a message with him as he goes to many of her appts with her. ( Per PT ) documented in this encounterMount Carmel Health System04-04-2023 NoteHNO ID: [id number] Author: Frank Negron DO Service: ? Author Type: Physician Type: Progress Notes Filed: 12/04/2022 10:03 AM Note Text: [facility] Office Visit Documentation Note [facility] [place] HISTORY OF PRESENT ILLNESS (HPI) SERVICE DATE: [...] EXCEPT FOR MINIMAL LATERAL EPICONDYLAR ENTHESOPATHY BILATERALLY Retail Support Specialist: SHAYNE Transcribe Date/Time: Jul 20 2022 10:34A ... Last MRI Elbow - Impression Only MRI ELBOW WO IVCON RT Exam End: 09/11/2022 11:27 AM (Final result) Impression: IMPRESSION: 1. Tendinosis and a small partial tear of the common extensor tendon origin. Retail Support Specialist: SHAYNE Transcribe Date/Time: Sep 11 2022 11:42A... [...] bariatric surgery but add a topical compound DEIGO keto topically as needed. We talked about for this chronic likely chronic tear and fibrotic tissue, minimally invasive percutaneous tendon debridement should treatment above not satiate the pain Follow up: Written instructions (see patient instructions) and verbal health education given to patient. Patient verbalizes understanding and agrees with the treatment plan. Frank Negron D.O. [facility] Soft Hat Binder, [facility] AND [facility] Program Team Physician, [facility] [employer] Consulting Physician, [place] Lexi Reddy, Flat Lock Operator [phone] [phone] History of Present illness Narrative* Frank Negron, - 12/04/2022 9:40 AM EDT Images from the original note were not included. [facility] Office Visit Documentation Note [facility] Rheumat[facility] [place] HISTORY OF PRESENT ILLNESS (HPI) SERVICE DATE: [...] EXCEPT FOR MINIMAL LATERAL EPICONDYLAR ENTHESOPATHY BILATERALLY Retail Support Specialist: SHAYNE Transcribe Date/Time: Jul 20 2022 10:34A ... Last MRI Elbow - Impression Only MRI ELBOW WO IVCON RT Exam End: 09/11/2022 11:27 AM (Final result) Impression: IMPRESSION: 1. Tendinosis and a small partial tear of the common extensor tendon origin. Retail Support Specialist: SHAYNE Transcribe Date/Time: Sep 11 2022 11:42A... [...] with the treatment plan. Frank Negron D.O. [facility] Soft Hat Binder, Tendon Center & T.E.A.M. Program Team Physician, [facility] [employer] Consulting Physician, [place] Lexi Yamile Josuebetsy, Flat Lock Operator [phone] documented in this encounterMount Carmel Health System02-09-2023 Evaluation note* Encounter Date Diagnosis Assessment Notes [...] - G89.29) Oct,OtherAbove note written by Amrit Vargas MA, Academic Coordinator. Edited and approved by Dr. Ed Malhotra MD. [employer] Other 01-16-2023 NoteHNO ID: [id number] Author: Frank Negron DO Service: ? Author Type: Physician Type: Progress Notes Filed: 09/17/2022 10:48 AM Note Text: [facility] Office Visit Documentation Note [facility] [place] HISTORY OF PRESENT ILLNESS (HPI) SERVICE DATE: [...] EXCEPT FOR MINIMAL LATERAL EPICONDYLAR ENTHESOPATHY BILATERALLY Retail Support Specialist: SHAYNE Transcribe Date/Time: Jul 20 2022 10:34A ... Last MRI Elbow - Impression Only MRI ELBOW WO IVCON RT Exam End: 09/11/2022 11:27 AM (Final result) Impression: IMPRESSION: 1. Tendinosis and a small partial tear of the common extensor tendon origin. Retail Support Specialist: SHAYNE Transcribe Date/Time: Sep 11 2022 11:42A... ASSESSMENT / PLAN CLINICAL IMPRESSION / ASSESSMENT: CLINICAL IMPRESSION / ASSESSMENT: (M77.11, M77.12) Lateral epicondylitis of both elbows (primary encounter diagnosis) (M25.522) Left elbow pain (M25.521) Right elbow pain (M79.7) Fibromyalgia RECOMMENDATION / PLAN: Counseling / Referral A total of 20 minutes were spent [id number] with the patient during this encounter and [...] include #1 bilateral PRP injections at $1500 [id number] Option #2 bilateral minimally invasive percutaneous tendon debridement Option #3 surgical consult.. Follow up: Okay to send a MyChart note on my recommendation after ultrasound of the left lateral elbow for evaluation of chronicity of common extensor tendon injury. Written instructions (see patient instructions) and verbal health education given to patient. Patient verbalizes understanding and agrees with the treatment plan. Frank Negron D.O. [facility] Soft Hat Binder, Tendon Center AND T.E.A.M. Program Team Physician, [facility] [employer] Consulting Physician, [place] Lexi Reddy, Flat Lock Operator [phone] Medical Center 09-17-2022 Miscellaneous Notes* Telephone Encounter - Keshawn Castro - 09/17/2022 11:48 AM EST Pt is scheduled for their [facility] US on 11/16 at [facility]. * Telephone Encounter - Xnader Cantu - 09/17/2022 10:45 AM EST Visit [...] locations. Slot held: N/A documented in this encounterMount Carmel Health System01-16-2023 Instructions* Patient Instructions* Frank Negron DO - 09/17/2022 10:35 AM EST IMAGING & LABORATORY Dr. Negron has requested further imaging to help coordinate your individualized plan of care. Most of these images will need to be appropriately scheduled. MRI/CT/Xray : Please stop at the desk manager to coordinate timing and scheduling of your image. IF your image is completed outside of the [facility], two steps will need to be taken and presented to Dr. Negron's office for review. 1. Gather a CD copy of your image at the time of service. 2. Gather Radiology Report, when available. Reports can be faxed to [phone]. [facility] Ultrasound : Please call [phone] to schedule your ultrasound appointment. LAB Requests: These can be completed at your nearest [facility] facility. Please allow for up to one week for results to finalize. Follow up: You may request [employer] release of your imaging at 3 DAYS after your imaging appointment. Dr. Negron will often read the image and make a recommendation through [employer]. Please understand, that due to the complexity of the presenting issue, many patients will need a physical examination even after their imaging, which would require a follow up officeappointment. To make an appointment, please call [phone] or Request Appointment option in [employer]. Thank you. Dr. Perfecto Negron D.O. [facility] [place] Team Physician, [facility] Consulting Physician, [place] Lexi Reddy, Flat Lock Operator [phone] documented in this encounterMount Carmel Health System01-16-2023 History of Present illness Narrative* Frank Negron DO - 09/17/2022 10:15 AM EST Images from the original note were not included. [facility] Office Visit Documentation Note [facility] Rheumat[facility] [place] HISTORY OF PRESENT ILLNESS (HPI) SERVICE DATE: [...] EXCEPT FOR MINIMAL LATERAL EPICONDYLAR ENTHESOPATHY BILATERALLY Retail Support Specialist: SHAYNE Transcribe Date/Time: Jul 20 2022 10:34A ... Last MRI Elbow - Impression Only MRI ELBOW WO IVCON RT Exam End: 09/11/2022 11:27 AM (Final result) Impression: IMPRESSION: 1. Tendinosis and a small partial tear of the common extensor tendon origin. Retail Support Specialist: SHAYNE Transcribe Date/Time: Sep 11 2022 11:42A... ASSESSMENT / PLAN CLINICAL IMPRESSION / ASSESSMENT: CLINICAL IMPRESSION / ASSESSMENT: (M77.11, M77.12) Lateral epicondylitis of both elbows (primary encounter diagnosis) (M25.522) Left elbow pain (M25.521) Right elbow pain (M79.7) Fibromyalgia RECOMMENDATION / PLAN: Counseling / Referral A total of 20 minutes were spent gjgq-yo-yduc with the patient during this encounter and [...] include #1 bilateral PRP injections at $1500 [id number] Option #2 bilateral minimally invasive percutaneous tendon debridement Option #3 surgical consult.. Follow up: Okay to send a MyChart note on my recommendation after ultrasound of the left lateral elbow for evaluation of chronicity of common extensor tendon injury. Written instructions (see patient instructions) and verbal health education given to patient. Patient verbalizes understanding and agrees with the treatment plan. Frank Negron D.O. [facility] Rhe[facility] Soft Hat Binder, Tendon Center & T.E.A.M. Program Team Physician, [facility] [employer] Consulting Physician, [place] Lexi Yamile Reddy, Flat Lock Operator [phone] documented in this encounterMount Carmel Health System01-10-2023 NoteHNO ID: [id number] Author: RT Dickson(R) Service: ? Author Type: [...] BY: RT Dickson(R) September 11, 2022 11:22 [facility]01-10-[facility]23 History of Present illness Narrative* RT Dickson(R) [...] 11, 2022 11:22 AM documented in this encounterMount Carmel Health System01-09-2023 Evaluation note* Encounter Date Diagnosis Assessment Notes [...] we can consider back on trek in [place], chronic pain therapy. . Anatomy of spine discussed in detail inpatient in regard to patients condition. Sep,Lumbosacral spondylosis without myelopathy (ICD-10 - M47.817) Sep,hronic pain (ICD-10 - G89.29) Sep,OtherAbove note written by Anthony Carcamo LPN, Academic Coordinator. Edited and approved by Dr. Ed Malhotra MD. [employer] Other 12-19-2022 NoteHNO ID: [id number] Author: RT Steve(R) Service: Radiology Author Type: [...] BY: RT Steve(R) August 20, 2022 10:54 [id number] History of Present illness Narrative* Frank Negron, - 08/20/2022 9:59 AM EST Images from the original note were not included. [facility] Office Visit Documentation Note [facility]opaedic and Rheumat[facility] [place] HISTORY OF PRESENT ILLNESS (HPI) CHIEF COMPLAINT / REASON FOR VISIT SERVICE DATE: August 20, 2022 PCP: No primary care provider on file. Michelle Rivera is here today at request of Lester Gomez MD specifically for consultation of my opinion in regards to the chief complaint listed below. Correspondence will be shared today via the [email or web address] record or through regular mail, where applicable. [...] EXCEPT FOR MINIMAL LATERAL EPICONDYLAR ENTHESOPATHY BILATERALLY Retail Support Specialist: SHAYNE Transcribe Date/Time: Jul 20 2022 10:34A [...] with the treatment plan. Frank Negron D.O. [facility] Rheumat[facility] Soft Hat Binder, Tendon Center & T.E.A.M. Program Team Physician, [facility] [employer] Consulting Physician, [place] Lexi Reddy, Flat Lock Operator [phone] documented in this encounterMount Carmel Health System12-05-2022 Evaluation note* Encounter Date Diagnosis Assessment Notes [...] Aug,therAbove note written by Anthony Carcamo LPN, Academic Coordinator. Edited and approved by Dr. Ed Malhotra MD. [employer] Other 11-18-2022 History of Present illness Narrative* [...] therapy. 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 Edited and approved by Dr. Ed Malhotra MD. [employer] Other 08-16-2022 [facility]* Encounter Date Diagnosis Assessment [...] Mar,therAbove note written by Amrit Vargas MA, Academic Coordinator. Edited and approved by Dr. Ed Malhotra MD. [employer] Other 07-18-2022 Evaluation note* Encounter Date Diagnosis [...] refer to Dr.T. Malhotra for possible injections. [employer] Other 04-28-2022 Evaluation note* Encounter Date Diagnosis [...] Dec,therAbove note written by Amrit Vargas MA, Academic Coordinator. Edited and approved by Dr. Ed Malhotra MD. [employer] Other 03-17-2022 Evaluation note* Encounter Date Diagnosis [...] Oct,therAbove note written by Anthony Carcamo LPN, Academic Coordinator. Edited and approved by Dr. Ed Malhotra MD. [employer] Other 02-23-2022 Evaluation note* Encounter Date Diagnosis [...] Oct,therAbove note written by Amrit Vargas CMA, Academic Coordinator. Edited and approved by Dr. Ed Malhotra MD. [employer] Other 01-13-2022 Evaluation note* Encounter Date Diagnosis [...] Sep,therAbove note written by Anthony Carcamo LPN, Academic Coordinator. Edited and approved by Dr. Ed Malhotra [...] negative findings were considered in medical decision-making. [employer] Other 06-01-2015 History general Narrative - Reported* Type Description Date Medical History Back pain Medical HistoryHashimoto's diseaseMedical HistoryasthmaSurgical History [id number] Historyback painJune 2014 [employer] Other 06-01-2015 History general Narrative - Reported* Type Description Date Medical History Back pain Medical HistoryHashimoto's diseaseMedical HistoryasthmaSurgical History [id number] Historygastric [id number] Historyback painJune 2014 [facility] [employer] Other Evaluation + Plan note Future Appointments Appointment Date:07/20/2024 10:45:00 AM Scheduled Provider:Amy Durbin PA-C Location:.[facility] [place] Appointment Type:Pain Management - New (FT) [facility] evaluation noteNo InformationNortIndiana Regional Medical Center [employer] Other Evaluation noteNo assessment information available [facility] Work Phone: Evaluation note* Diagnosis Lateral epicondylitis of both elbows- Primary Lateral epicondylitis of elbow documented in this encounter [facility] SystemEvaluation [facility]* Diagnosis Left elbow pain- Primary Pain in joint, upper arm Lateral epicondylitis of both elbows Lateral epicondylitis of elbow Right elbow pain Pain in joint, upper arm Fibromyalgia Mylagia and myositis, unspecified Anxiety Anxiety state, unspecified Sleep apnea, unspecified type Cervicalgia documented in this encounter [place] [facility]* Diagnosis Lateral epicondylitis of both elbows- Primary Lateral epicondylitis of elbow Left elbow pain Pain in joint, upper arm Right elbow pain Pain in joint, upper arm Fibromyalgia Mylagia and myositis, unspecified [facility] Diagnosis Lateral epicondylitis of both elbows- Primary Lateral epicondylitis of elbow Left elbow pain Pain in joint, upper arm [facility] Diagnosis Right elbow pain- Primary Pain in joint, upper arm Lateral epicondylitis of both elbows Lateral epicondylitis of elbow [facility] Diagnosis Right elbow pain- Primary Pain in joint, upper arm Lateral epicondylitis of right elbow Lateral epicondylitis of elbow [facility] Right elbow pain- Primary Pain in joint, upper arm Lateral epicondylitis of right elbow Lateral epicondylitis of elbow [facility] Diagnosis Right elbow pain- Primary Pain in joint, upper arm Lateral epicondylitis of right elbow Lateral epicondylitis of elbow [facility] Diagnosis Right elbow pain- Primary Pain in joint, upper arm Lateral epicondylitis of right elbow Lateral epicondylitis of elbow [facility] Diagnosis Lateral epicondylitis of right elbow- Primary Lateral epicondylitis of elbow [facility]* Diagnosis Onset Date Resolution Status Sinusitis noneactiveSore throatnoneactiveArthritis of lumbosacral spineacuteChronic pain acuteRight hip painnoneactive [facility] Work Phone: Evaluation note* Diagnosis Lateral epicondylitis of both elbows Lateral epicondylitis of elbow Left elbow pain Pain in joint, upper arm Right elbow pain Pain in joint, upper arm Fibromyalgia Mylagia and myositis, unspecified Anxiety Anxiety state, unspecified Sleep apnea, unspecified type Cervicalgia [facility] Diagnosis Pain Generalized pain [facility] Diagnosis Well woman exam with routine gynecological exam Routine gynecological examination documented in this encounter [facility]* Diagnosis Other constipation- Primary Rectal bleeding Hemorrhage of rectum and anus Internal hemorrhoids Internal hemorrhoids without mention of complication documented in this encounter [facility]* Diagnosis Nexplanon removal documented in this encounter [facility]* Diagnosis Menorrhagia with regular cycle Urinary frequency documented in this encounter [facility]* Diagnosis Physical exam, pre-employment- Primary Health examination of defined subpopulation Encounter for wellness examination in adult documented in this encounter [facility]* Diagnosis Pre-op examination Request for sterilization Menorrhagia with regular cycle Abnormal uterine bleeding (AUB) Pelvic pain in female Unspecified symptom associated with female genital organs documented in this encounter [facility]* Diagnosis Panniculitis- Primary Panniculitis, unspecified site History of gastric bypass [facility] Diagnosis Chronic low back pain with sciatica, sciatica laterality unspecified, unspecified back pain laterality- Primary Personal history of fibromyalgia Personal history of other musculoskeletal disorders Polina's disease Chronic lymphocytic thyroiditis Postsurgical malabsorption Drug-induced constipation Other constipation History of gastric bypass [facility] Diagnosis Migraine with aura and without status migrainosus, not intractable- Primary Malnutrition following gastrointestinal surgery Other and unspecified postsurgical nonabsorption History of gastric bypass Postsurgical malabsorption Abdominal pannus Localized adiposity documented [facility] this [facility]* Diagnosis Acne, unspecified acne type- Primary Chronic low back pain with sciatica, sciatica laterality unspecified, unspecified back pain laterality S/P bariatric surgery History of gastric bypass Encounter to establish care documented in this encounter [facility]* Diagnosis 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 Other and unspecified postsurgical nonabsorption History of gastric bypass documented in [facility]* Diagnosis Malnutrition following gastrointestinal surgery Other and unspecified postsurgical nonabsorption History of gastric bypass Postsurgical malabsorption Vitamin B12 deficiency Other B-complex deficiencies documented in this encounter [facility]* Diagnosis Malnutrition following gastrointestinal surgery- Primary Other and unspecified postsurgical nonabsorption Postsurgical malabsorption History of gastric bypass documented in this encounter [facility]* Diagnosis History of gastric bypass- Primary Malnutrition following gastrointestinal surgery Other and unspecified postsurgical nonabsorption Postsurgical malabsorption Iron excess Disorders of iron metabolism Zinc deficiency Mineral deficiency, not elsewhere classified Constipation, unspecified constipation type Postprandial abdominal pain in right upper quadrant documented in this encounter [facility]* Diagnosis Change in bowel habits- Primary Other symptoms involving digestive system Malnutrition following gastrointestinal surgery Other and unspecified postsurgical nonabsorption Postsurgical malabsorption History of gastric bypass Pain of upper abdomen documented [facility]* Diagnosis Dietary counseling and surveillance- Primary History of gastric bypass documented in this [facility]* Diagnosis ADHD (attention deficit hyperactivity disorder), inattentive type- Primary documented in this [facility]* Diagnosis Irritable bowel syndrome with constipation- Primary Irritable bowel syndrome documented [facility]* Diagnosis 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 Hasn't had endoscopy. [id number] Work Phone: Hospital course Narrative No data available for this section [facility] Hospital Discharge instructions No data available for this section [facility] InstructionsNot on filedocumented in this encounter [...] sent through Care Everywhere. * Atomoxetine, ADULT (Puerto [place]ican) documented [facility] SystemInstructionsNot on file documented in this encounterProMedica [facility] SystemProgress note No data available for this section [facility] reason for referral (narrative)* Diagnostic Procedure Only (Routine) - AuthorizedSpecialtyDiagnoses / ProceduresReferred By Contact Referred To ContactUS IMAGING Diagnoses Lateral epicondylitis of both elbows Procedures US ELBOW LEFT US LMTD JOINT/OTH NONVASC XTR STRUX R-T W/[place] [address] [place] [address] Us [facility] Referral IDStatusReasonStart DateExpiration DateVisits RequestedVisits [id number] Auto-Generated Referral / [facility] for referral (narrative)* Diagnostic Procedure Only (Routine) - ClosedSpecialtyDiagnoses / ProceduresReferred By ContactReferred To ContactXR IMAGING Diagnoses Pain Procedures XR ELBOW SPECIAL VIEWS AP/LAT/OTHER RIGHT RADEX ELBOW COMPLETE MINIMUM 3 VIEWS Lester Gomez, DO [address] [place] [address] [place] [address] Referral IDStatusReasonStart DateExpiration DateVisits RequestedVisits [id number] Auto-Generated Referral / * Diagnostic Procedure Only (Routine) - ClosedSpecialtyDiagnoses / Procedures Referred By ContactReferred To ContactXR IMAGING Diagnoses Pain Procedures XR ELBOW SPECIAL VIEWS AP/LAT/OTHER LEFT RADEX ELBOW COMPLETE MINIMUM 3 VIEWS Lester Gomez, DO [address] [place] [address] [place] [address] Referral IDStatusReasonStart DateExpiration DateVisits RequestedVisits [id number] Auto-Generated Referral / [facility] for referral (narrative)* Consultation (Routine) - Pending ReviewSpecialtyDiagnoses / ProceduresReferred By ContactReferred To ContactPlastic & Reconstructive Surgery Diagnoses History of gastric bypass Abdominal pannus Localized adiposity Nichol Barrett MD [address] [place] [address] Esthela Wilson MD [address] [place] [address] Referral IDStatusReasonStart DateExpiration DateVisits RequestedVisits [id number] Review Specialty Services Required [facility] CenterReason for referral (narrative)No reason for referral information availableU[facility] Center Work Phone: Reason for visit NarrativeREVIEW MEDICATION MANAGEMENT [facility] [employer] Other Reason for visit Narrative* Diagnostic Procedure Only (Routine) - ClosedSpecialtyDiagnoses / ProceduresReferred By ContactReferred To ContactXR IMAGING Diagnoses Pain Procedures XR ELBOW SPECIAL VIEWS AP/LAT/OTHER RIGHT RADEX ELBOW COMPLETE MINIMUM 3 VIEWS Lester Gomez, DO [address] [place] [address] [place] [address] Referral IDStatusReasonSteaglet[place] DateExpiration DateVisits RequestedVisits [id number] Auto-Generated Referral / [facility] Summary Purpose Family History Unknown Family Member [...] epicondylitis of right elbow Procedures CONSULT TO COAT FITTER OCCUPATIONAL THERAPY EVAL HIGH COMPLEX [address] [place] [address] [place] [address] [facility] [place] [address] [place] [address] Referral IDStatusReasonStart DateExpiration DateVisits RequestedVisits [id number] Auto-Generated Referral [id number] / ProceduresReferred By ContactReferred To ContactMR IMAGING Diagnoses Lateral epicondylitis of both elbows Left elbow pain Right elbow pain Fibromyalgia Anxiety Sleep apnea, unspecified type Cervicalgia Procedures MRI ELBOW WO IVCON LT MRI ANY JT UPPER EXTREMITY W/[place] [address] [place] [address] Mr Imaging Referral IDStatusReasonSteaglet[place] DateExpiration DateVisits RequestedVisits [id number] Review Auto-Generated Referral /[id number] / ProceduresReferred By ContactReferred To ContactMR IMAGING Diagnoses Lateral epicondylitis of both elbows Left elbow pain Right elbow pain Fibromyalgia Anxiety Sleep apnea, unspecified type Cervicalgia Procedures MRI ELBOW WO IVCON RT MRI ANY JT UPPER EXTREMITY W/[place] [address] [place] [address] Mr Imaging Referral IDStatusReasonStart DateExpiration DateVisits RequestedVisits [id number] Review Auto-Generated Referral [id number] / ProceduresReferred By ContactReferred To ContactREHAB AND SPORTS THERAPY INS Diagnoses Lateral epicondylitis of both elbows Left elbow pain Right elbow pain Fibromyalgia Anxiety Sleep apnea, unspecified type Cervicalgia Procedures CONSULT TO PHYSICAL THERAPY PHYSICAL THERAPY EVALUATION HIGH COMPLEX [address] [place] [address] [place] [address] [facility] [place] [address] [place] [address] Ref[facility]Status[facility] DateExpiration DateVisits RequestedVisits [id number] Review Auto-Generated Referral [id number] / ProceduresReferred By ContactReferred To ContactXR IMAGING Diagnoses Lateral epicondylitis of both elbows Left elbow pain Right elbow pain Fibromyalgia Anxiety Sleep apnea, unspecified type Cervicalgia Procedures XR CERV OTHER 4V AP/LAT/OBL RADEX SPINE CERVICAL 4 [place] [address] [place] [address] X[facility] Referral IDStatusReason[place] DateExpiration DateVisits RequestedVisits [id number] Auto-Generated Referral [id number] / ProceduresReferred By ContactReferred To ContactOrthopedics Diagnoses Lateral epicondylitis of both elbows Procedures CONSULT TO ORTHOPAEDICS OFFICE/OUTPATIENT [facility] 60-74 MINUTES Lester Gomez, [place] [id number] Referral IDStatusReasonStart DateExpiration DateVisits RequestedVisits [id number] PCP Requested Referral Medications Administered Section Medication [...] section and content) DATE CREATED AUTHOR 03/06/2018 [facility] DATE CREATED AUTHOR AUTHOR'S ORGANIZ ATION 10/26/2021 [facility] DATE CREATED AUTHOR AUTHOR'S ORGANIZ ATION 08/24/2022 [facility] DATE CREATED AUTHOR AUTHOR'S ORGANIZ ATION 11/01/2022 [facility] DATE CREATED AUTHOR AUTHOR'S ORGANIZ ATION 12/06/2022 [facility] DATE CREATED AUTHOR AUTHOR'S ORGANIZ ATION 09/07/2023 [facility] DATE CREATED AUTHOR AUTHOR'S ORGANIZ ATION 07/22/2024 [facility] DATE CREATED AUTHOR AUTHOR'S ORGANIZ ATION 01/30/2025 [facility] DATE CREATED AUTHOR AUTHOR'S ORGANIZ ATION 2025 [facility] DATE CREATED AUTHOR AUTHOR'S ORGANIZ ATION 02/22/2025 [facility] DATE CREATED AUTHOR AUTHOR'S ORGANIZ ATION 05/01/2025 [facility] DATE CREATED AUTHOR AUTHOR'S ORGANIZ ATION 06/30/2025 [facility] REASON FOR VISIT (unrecogniz ed section and content) ReasonCommentsNewReasonCommentsNewSpecialtyDiagnoses / ProceduresReferred By ContactReferred To ContactOrthopedics Diagnoses Lateral epicondylitis of both elbows Procedures CONSULT TO ORTHOPAEDICS OFFICE/OUTPATIENT [facility] 60-74 MINUTES Lester Gomez, DO [facility] [address] [place] [address] Referral IDStatusReasonStart DateExpiration DateVisits RequestedVisits [id number] PCP Requested Referral [id number] MRIReasonCommentsFollow UpReason CommentsAppointmentReasonCommentsEstablished PatientSpecialtyDiagnoses / ProceduresReferred By ContactReferred To ContactORTHOPAEDIC SURGERY Diagnoses Lateral epicondylitis, right elbow Procedures NJX PLTLT PLASMA W/IMG HARVEST/PREPARATION PRP INJECTION [place] [address] [place] [address] [place] [address] [place] [address] Referral IDStatVihumble DateExpiration DateVisits RequestedVisits [id number] Financial Clearance Required - Self Pay Patient Cleared - True Self-Pay required payment collected [id number]oeXmdowzedZhxmpgzkqda PatientReason CommentsOT EVALSpecialtyDiagnoses / ProceduresReferred By ContactReferred To ContactREHAB AND SPORTS THERAPY INS Diagnoses Right elbow pain Lateral epicondylitis of right elbow Procedures CONSULT TO COAT FITTER OCCUPATIONAL THERAPY EVAL HIGH COMPLEX [address] [place] [address] [place] [address] [facility] [place] [address] [place] [address] Referral IDStatus[facility] DateExpiration DateVisits RequestedVisits [id number] Auto-Generated Referral [id number]gf TherapySpecialtyDiagnoses / ProceduresReferred By ContactReferred To [facility] AND SPORTS THERAPY INS Diagnoses Right elbow pain Lateral epicondylitis of right elbow Procedures CONSULT TO COAT FITTER OCCUPATIONAL THERAPY EVAL HIGH COMPLEX [address] [place] [address] [place] [address] [facility] [address] [address] SpecialtyDiagnoses / ProceduresReferred By ContactReferred To ContactOrthopedics / ORTHOPAEDIC SURGERY Diagnoses Lateral epicondylitis, right elbow Pain in right elbow LATERAL EPICONDYLITIS R ELBOW Procedures TENOTOMY ELBOW LATERAL/MEDIAL PERCUTANEOUS US GUIDANCE NEEDLE PLACEMENT IMG S&I TENOTOMY WITH US [place]IDE [place] [address] [place] [address] [place] [address] [place] [address] Referral IDStatusVihumble DateExpiration DateVisits RequestedVisits [id number]/1/202312/31/300940BxugliiksEntnscdfy / Procedures Referred By ContactReferred To ContactMR IMAGING Diagnoses Lateral epicondylitis of both elbows Left elbow pain Right elbow pain Fibromyalgia Anxiety Sleep apnea, unspecified type Cervicalgia Procedures MRI ELBOW WO IVCON RT MRI ANY JT UPPER EXTREMITY W/[place] [address] [place] [address] [place] [address] Referral IDStatusReasonStart DateExpiration DateVisits RequestedVisits [id number] Auto-Generated Referral /[id number] / ProceduresReferred By ContactReferred To ContactMR IMAGING Diagnoses Lateral epicondylitis of both elbows Left elbow pain Right elbow pain Fibromyalgia Anxiety Sleep apnea, unspecified type Cervicalgia Procedures MRI ELBOW WO IVCON LT MRI ANY JT UPPER EXTREMITY W/[place] [address] [place] [address] [place] [address] Referral IDStatusReasonStart DateExpiration DateVisits RequestedVisits [id number] Auto-Generated Referral /[id number]y ExamReasonCommentsRectal Bleeding Pt presents today for a [...] To ContactGeneral Surgery Diagnoses Rectal bleeding Procedures [place] OFFICE[facility]IENT [facility] Lidia Najera DO [address] [facility] [address] [place] [address] Phone: tel: fax: Lidia Najera, [address] [facility] [address] [place] [address] Phone: tel: fax: Referral IDStatusReason[place] DateExpiration DateVisits RequestedVisits [id number] Specialty Services Required [id number] removalReasonCommentsMenstrual ProblemReasonCommentsPre-op VisitEndometrial BiopsyReasonCommentsNew Patient Panniculectomy ConsultSpecialtyDiagnoses / ProceduresReferred By ContactReferred To ContactPlastic & Reconstructive Surgery Diagnoses History of gastric bypass Abdominal pannus Localized adiposity Nichol Barrett MD [address] [facility] [address] [place] [address] Phone: tel: fax: Esthela Wilson MD [address] [place] [address] Phone: tel: fax: Referral IDStatusReasonStart DateExpiration DateVisits RequestedVisits [id number] Review Specialty Services Required /[id number]-lpVgltwgHnilbdyaPcvg-jl0 year RYGB; itchy from loose skinReasonCommentsMed RefillReasonCommentsFollow-up2yr [...] of gastric bypass Stefano Hinton PA [address] [facility] [address] [place] [address] Phone: tel: fax: [facility] Department of [address] [address] Phone: tel: fax: Referral IDStatusReasonStart DateExpiration DateVisits RequestedVisits [id number] Review Specialty Services Required [id number] CounselingReasonCommentsADHDReason CommentsDiscuss HPV Care Teams (unrecognized sec tion and content) Team Status: Active Member Role Status Dates Vijaya Pinto APRN SUPER[employer] Primary Care Provider Active Team Status: Inactive Member Role Status Dates Vijaya Pinto APRN SUPER[employer] Primary Care Provider Active Start: November 11, 2023 End: November 10amelLC HowardCAttenkhurram ProviderActiveStart: November 11, 2023 End: November 11, 2023 Team Status: Inactive Member Role Status Dates Vijaya Pinto APRN [employer] Primary Care Provider Active Start: November 14, 2023 End: November 14, 2023Rosy Diaz ProviderActiveStart: November 14, 2023 End: November 14, 2023 Team Status: Inactive Member Role Status Dates Vijaya Pinto APRN [employer] Primary Care Provider Active Ed Rosy Malhotra ProviderActiveTeam MemberRelationshipSpecialtyStart DateEnd Date Abundio Galdamez, DO [address] [place] [address] ReferringOrthopedics05/31/22Team MemberRelationshipSpecialtyStart DateEnd Date Abundio Galdamez, DO [address] [place] [address] ReferringOrthopedics05/31/22Team MemberRelationshipSpecialtyStart DateEnd Date Abundio Galdamez, DO [address] [place] [address] ReferringOrthopedics05/31/22Team MemberRelationshipSpecialtyStart DateEnd Date Abundio Galdamez, DO [address] [place] [address] ReferringOrthopedics9/29/22Team MemberRelationshipSpecialtyStart DateEnd Date Abundio Galdamez, DO [address] [place] [address] ReferringOrthopedics9/29/22Team MemberRelationshipSpecialtyStart DateEnd Date Abundio Galdamez, DO [address] [place] [address] ReferringOrthopedics9/29/22Team MemberRelationshipSpecialtyStart DateEnd Date Abundio Galdamez, DO [address] [place] [address] ReferringOrthopedics9/29/22Team MemberRelationshipSpecialtyStart DateEnd Date Abundio Galdamez, DO [address] [place] [address] ReferringOrthopedics9/29/22Team MemberRelationshipSpecialtyStart DateEnd Date Abundio Galdamez, DO [address] [place] [address] ReferringOrthopedics9/29/22Team MemberRelationshipSpecialtyStart DateEnd Date Abundio Galdamez, DO [address] [place] [address] ReferringOrthopedics9/29/22Team MemberRelationshipSpecialtyStart DateEnd Date Abundio Galdamez, DO [address] [place] [address] ReferringOrthopedics9/29/22Team MemberRelationshipSpecialtyStart DateEnd Date Abundio Galdamez, DO [address] [place] [address] ReferringOrthopedics05/31/22Team MemberRelationshipSpecialtyStart DateEnd Date Abundio Galdamez, [address] [place] [address] ReferringOrthopedics05/31/22Team MemberRelationshipSpecialtyStart DateEnd Date Abundio Galdamez DO [address] [place], [place] [address] ReferringOrthopedics05/31/22Team MemberRelationshipSpecialtyStart DateEnd Date Abundio Galdamez DO [address] [place] [address] ReferringOrthopedics05/31/22Team MemberRelationshipSpecialtyStart DateEnd Date Abundio Galdamez DO [address] [place] [address] ReferringOrthopedics05/31/22 Team Status: Inactive Member Role Status Dates Vijaya Pinto APRN SUPER[employer] Primary Care Provider Active Start: May 042023 End: May 284CDemario Dhillon ProviderActiveStart: May 28, 2024 End: May 28, 2024 Team Status: Inactive Member Role Status Dates Vijaya Pinto APRN SUPER[employer] Primary Care Provider Active Start: July 172023 End: July 17Demario Dhillon ProviderActiveStart: July 17, 2024 End: July 17, 2024Team MemberRelationshipSpecialtyStart DateEnd Date Nita Oneil MD [address] [place], [place] [address], [place] [address] PCP - GeneralFamily Qewiicmt17/20/24Team MemberRelationshipSpecialtyStart Date End Date Nita Oneil MD [address], [place] [address] PCP - GeneralFamily Bkttznva07/20/24Team MemberRelationshipSpecialtyStart Date End Date Nita Oneil MD [address], [place] [address] PCP - GeneralFamily Jisepyvs42/20/24Team MemberRelationshipSpecialtyStart Date End Date Nita Oneil MD [address], [place] [address] PCP - GeneralFamily Fmryuwiu15/20/24Team MemberRelationshipSpecialtyStart Date End Date Rivka Koenig APRN-[facility] [address] [place], [place] [id number] PCP - GeneralNurse Practitioner01/16/24Team MemberRelationshipSpecialtyStart Date End Date Vijaya Pinto, [employer] ROUTE DELIVERER-[facility] [address], [place] [place] [address] PCP - GeneralFamily Medicine11/03/20Team MemberRelationshipSpecialtyStart DateEnd Date Rivka Koenig APRN-[facility] [address] [place], [facility] [place] [phone] PCP - GeneralNurse Practitioner01/16/24Team MemberRelationshipSpecialtyStart Date End Date Vijaya Pinto, MILK ROUTE DELIVERER-[facility] [address], [place] [address] PCP - GeneralFamily Medicine11/03/20Team MemberRelationshipSpecialtyStart DateEnd Date Vijaya Pinto, MILK ROUTE DELIVERER-[facility] [address], [place] [address] PCP - GeneralFamily Medicine11/03/20Team MemberRelationshipSpecialtyStart DateEnd Date Rivka Koenig MILK ROUTE DELIVERER-[facility] [address] [place] [address], [facility] [place] [phone] PCP - GeneralNurse Practitioner01/16/24Team MemberRelationshipSpecialtyStart Date End Date Rivka Koenig MILK ROUTE DELIVERER-[facility] [address] [place] [address], [place] [place] [phone] PCP - GeneralNurse Practitioner01/16/24Team MemberRelationshipSpecialtyStart Date End Date Rivka Koenig MILK ROUTE DELIVERER-[facility] [address] [place] [address], [place] [place] [phone] PCP - GeneralNurse Practitioner01/16/24Team MemberRelationshipSpecialtyStart Date End Date Rivka Koenig MILK ROUTE DELIVERER-[facility] [address] [place] [address], [place] [phone] PCP - GeneralNurse Practitioner01/16/24Team MemberRelationshipSpecialtyStart Date End Date Rivka Koenig APRN-[employer]BE[employer] CHO[employer] DIRECTOR [address] [place] [phone] PCP - GeneralNurse Practitioner01/16/24Team MemberRelationshipSpecialtyStart Date End Date Rivka Koenig APRN-[employer] CHOIR DIRECTOR [address] [place] [phone] PCP - GeneralNurse Practitioner01/16/24Team MemberRelationshipSpecialtyStart Date End Date Rivka Koenig APRN-[employer]BE[employer] CHOIR DIRECTOR [address] [place] [phone] PCP - GeneralNurse Practitioner01/16/24Team MemberRelationshipSpecialtyStart Date End Date Nita Oneil MD PCP - GeneralFamily Cyvblfqr55/20/24Team MemberRelationshipSpecialtyStart Date End Date Rivka Koenig APRN-[employer] DIRECT[employer] [address] [place] [phone] PCP - GeneralNurse Practitioner01/16/24Team MemberRelationshipSpecialtyStart Date End Date Nita Oneil MD PCP - GeneralFamily Fvesnwlm12/20/24Team MemberRelationshipSpecialtyStart Date End Date Nita Oneil MD PCP - [facility]07/22/24 Team Status: Inactive Member Role Status Dates Vijaya Pinto APRN SUPERVISOR [employer]LE [employer] M[employer]-C Primary Care Provider Active Start: May 032024 End: May 20omas SHYAM Malhotrattending ProviderActiveStart: May 20, 2025 End: May 20, 2025 Team Status: Active Member Role/Relationship Status Dates Vijaya iPnto APRN SUPERVISOR [employer]-C Primary Care Provider Active Team Status: Inactive Member Role/Relationship Status Dates Vijaya Pinto APRN SUPERVISOR [employer] M[employer]-C Primary Care Provider Active Start: May 032024 End: May 20omas SHYAM Malhotrattending ProviderActiveStart: May 20, 2025 End: May 20, 2025 Team Status: Inactive Member Role/Relationship Status Dates Vijaya Pinto APRN SUPERVISOR [employer] MOTTLE-C Primary Care Provider Active Start: June End: June 28mandFox Morales ProviderActiveStart: June 28, 2025 End: June 28, 2025 Team Status: Active Member Role/Relationship Status Dates Vijaya Pinto APRN SUPERVISOR [employer]LE [employer] MOTTLE-C Primary Care Provider Active Start: June Ed Marya MDAttending ProviderActiveStart: June 28, 2025 Team Status: Inactive Member Role/Relationship Status Dates Vijaya Pinto APRN SUPERVISOR [employer]LE [employer] MOTTLE-C Primary Care Provider Active Start: June End: June 28omas Marya MDAttending ProviderActiveStart: June 28, 2025 End: June 28, 2025Team MemberRelationshipSpecialtyStart DateEnd Date Nita Oneil MD PCP - [facility]07/22/24 Source Comments (unrecognize d section and content) In the event this informatio n is protected by the Federal Confidentiality of Alcohol and Drug Abuse Patient Records regulations: The Federal rules restrict any use of the information to criminally investigate or prosecute any alcohol or drug abuse patient.[facility] SystemIn the event this information is protected by the Federal Confidentiality of Alcohol and Drug Abuse Patient Records regulations: The Federal rules restrict any use of the information to criminally investigate or prosecute any alcohol or drug abuse patient.[facility] SystemIn the event this information is protected by the Federal Confidentiality of Alcohol and Drug Abuse Patient Records regulations: The Federal rules restrict any use of the information to criminally investigate or prosecute any alcohol or drug abuse patient.[facility] SystemIn the event this information is protected by the Federal Confidentiality of Alcohol and Drug Abuse Patient Records regulations: The Federal rules restrict any use of the information to criminally investigate or prosecute any alcohol or drug abuse patient.[facility] SystemIn the event this information is protected by the Federal Confidentiality of Alcohol and Drug Abuse Patient Records regulations: The Federal rules restrict any use of the information to criminally investigate or prosecute any alcohol or drug abuse patient.[facility] SystemIn the event this information is protected by the Federal Confidentiality of Alcohol and Drug Abuse Patient Records regulations: The Federal rules restrict any use of the information to criminally investigate or prosecute any alcohol or drug abuse patient.[facility] SystemIn the event this information is protected by the Federal Confidentiality of Alcohol and Drug Abuse Patient Records regulations: The Federal rules restrict any use of the information to criminally investigate or prosecute any alcohol or drug abuse patient.[facility] SystemIn the event this information is protected by the Federal Confidentiality of Alcohol and Drug Abuse Patient Records regulations: The Federal rules restrict any use of the information to criminally investigate or prosecute any alcohol or drug abuse patient.[facility] SystemIn the event this information is protected by the Federal Confidentiality of Alcohol and Drug Abuse Patient Records regulations: The Federal rules restrict any use of the information to criminally investigate or prosecute any alcohol or drug abuse patient.[facility] SystemIn the event this information is protected by the Federal Confidentiality of Alcohol and Drug Abuse Patient Records regulations: The Federal rules restrict any use of the information to criminally investigate or prosecute any alcohol or drug abuse patient.[facility] SystemIn the event this information is protected by the Federal Confidentiality of Alcohol and Drug Abuse Patient Records regulations: The Federal rules restrict any use of the information to criminally investigate or prosecute any alcohol or drug abuse patient.[facility] SystemIn the event this information is protected by the Federal Confidentiality of Alcohol and Drug Abuse Patient Records regulations: The Federal rules restrict any use of the information to criminally investigate or prosecute any alcohol or drug abuse patient.[facility] SystemIn the event this information is protected by the Federal Confidentiality of Alcohol and Drug Abuse Patient Records regulations: The Federal rules restrict any use of the information to criminally investigate or prosecute any alcohol or drug abuse patient.[facility] SystemIn the event this information is protected by the Federal Confidentiality of Alcohol and Drug Abuse Patient Records regulations: The Federal rules restrict any use of the information to criminally investigate or prosecute any alcohol or drug abuse patient.[facility] SystemIn the event this information is protected by the Federal Confidentiality of Alcohol and Drug Abuse Patient Records regulations: The Federal rules restrict any use of the information to criminally investigate or prosecute any alcohol or drug abuse patient.[facility] SystemIn the event this information is protected by the Federal Confidentiality of Alcohol and Drug Abuse Patient Records regulations: The Federal rules restrict any use of the information to criminally investigate or prosecute any alcohol or drug abuse patient.[facility] SystemIn the event this information is protected by the Federal Confidentiality of Alcohol and Drug Abuse Patient Records regulations: The Federal rules restrict any use of the information to criminally investigate or prosecute any alcohol or drug abuse patient.[facility] SystemIn the event this information is protected by the Federal Confidentiality of Alcohol and Drug Abuse Patient Records regulations: The Federal rules restrict any use of the information to criminally investigate or prosecute any alcohol or drug abuse patient.[facility] SystemIn the event this information is protected by the Federal Confidentiality of Alcohol and Drug Abuse Patient Records regulations: The Federal rules restrict any use of the information to criminally investigate or prosecute any alcohol or drug abuse patient.[facility] SystemIn the event this information is protected by the Federal Confidentiality of Alcohol and Drug Abuse Patient Records regulations: The Federal rules restrict any use of the information to criminally investigate or prosecute any alcohol or drug abuse patient.[facility] Goals (unrecognized section and content) Goals may [...] BE BASED ON THE PRIMARY CLINICAL RECORDS. [employer] [facility]. provides no warranty or guarantee of the accuracy or completeness of information in this document.
--- OUTSIDE RECORDS SUMMARY | 2025-07-12 20:27 | XMS_ITS | Clinical Summary ---
Author Organization [employer] Address [id number] [address] [place] [address] Care Team Providers Care Concrete Technician Name Role Phone KoenigJoann batresNikki APRN-BOOKBINDER APPRENTICE Primary Care Provider Allergies Active AllergyReactionsCriticalityNoted DateCommentsNsaids (Non-Steroidal Anti- Inflammatory Drug)08/20/2024 Gastric Bypass Penicillin GHives,TjxgkfgaLigj21/15/2018Sulfa (Sulfonamide Antibiotics)Hives, GixukssgQrum67/15/2018 Ophthalmic agents Medications MedicationSigDispense QuantityRefillsLast FilledStart DateEnd [...] 3 mL 5Active syringe with needle (BD LUER-PAYAL SYRINGE) 3 [...] tablet 5Active Active Problems ProblemNoted DateDiagnosed DateIron zcuvvu9301/15/2025Acne11/29/2023onstipation 05/30/2023Elevated transaminase level05/30/2023Vitamin B12 dgqlixidph95/28/2023 Malnutrition following gastrointestinal bmjyfof2702/28/2023History of gastric rzittj9202/28/20230239Yxuufuhcxch69/10/2023t risk for fluid and electrolyte imbalance 12/10/2022Other sleep apnea02/15/2022Hashimoto's xuxhsiw1511/03/2020Migraine with aura and without status migrainosus, not bedbvszubvl30/04/2021nlarged thyroid 11/03/2020ersonal history of ifblkgiyocwj01/04/1608Ongxorg35/04/2021hronic back pain08/11/2018 Resolved Problems ProblemNoted DateDiagnosed DateResolved DatePostsurgical pgjyaneiapnad77/26/2023 01/15/2025Obesity, Class I, BMI 30-34.90/Morbid obesity with BMI of 40.0-44.9, adult/10/2022Weight gain/10/2022 Primary ftbvcyxuxxvb90/31/202207/cute ear pain, zhjenvuvs77/18/2021 10/02/2021cute non-recurrent maxillary qefoqzbmi52/Upper respiratory tuibbnthe55Left wrist / Weight loss counseling, encounter for/Left elbow tendonitis nxiety and dczconektd92/04/202107/astroesophageal reflux disease with esophagitis without cvbwpzqmdf14Thyroid disease affecting toiftilyh77H/O migraine during hronic hypertension affecting ogtirkzuk75 Depression affecting vkjuqyqia17nxiety during Encounters DateTypeDepartmentCare BtzsBczcizrcfsh13/03/2025Refill [facility] [address] [place] [address] Shantanu Barrett MD Malnutrition following gastrointestinal surgery; Postsurgical malabsorption; History of gastric kjmwev2104/26/2025bstract [facility] [address] [place] [phone] Zuhair Chavarria DO from Last 3 [...] file11/03/2020Frequency of Binge DrinkingNot on file1PHQ-2AnswerDate RecordedTotal Lzhig274 ChildcareAnswerDate FwskktzlFsmvtmyzoLxbuezx67/03/2019EmploymentAnswerDate NqxgfuzdSapybemhgiFibyhkj93/03/2019Hunger ScreeningAnswerDate RecordedWithin the past 12 months we worried whether our food would run out before we got money to buy more.Never True02/19/2025Within the past 12 months the food we bought just didn't last and we didn't have money to get more.Never True02/19/2025Purpose - LifeAnswerDate RecordedPurpose and direction in polqYwyedab81/11/2021 CommentsNoSex and Gender InformationValueDate RecordedSex Assigned at BirthNot on fileLegal SjuOyrnpj31/29/2018 3:38 PM EDTGender IdentityNot on fileSexual OrientationNot on file Last Filed Vital Signs Vital SignReadingTime TakenCommentsBlood Wexxywdx745/78002/19/2025 7:42 AM EDT Vrmqk596802/19/2025 7:42 AM DHHVefyngdvngu78.6 ??C (97.8 ??F)02/19/2025 7:42 AM EDTRespiratory Wfqn405905/30/2023 8:38 AM EDTOxygen Eoernwsetw38%02/19/2025 7:42 AM EDTInhaled Oxygen Concentration--Fbacum65.7 kg (142 lb 9.6 oz)02/19/2025 7:42 AM JFQUltixs266.1 cm (5' 5 )02/19/2025 7:42 AM EDTBody Mass Index23.7302/19/2025 7:42 AM EDT Plan of Treatment DateTypeDepartmentCare Team (Latest Contact Info)Hduagylbbag39/08/2026 8:30 AM EDTOffice Visit [facility] [address] [place] [address]. [address] [place] [address] Shantanu Barrett MD [address] [address] Amy Chiu, PA-C [address] [facility] [address] [place] [address] Health MaintenanceDue DateLast DoneCommentsDTaP,Tdap and Td Vaccines (1 - Tdap) 2006Influenza Uielsky61/01/2025Adult BMI Exzdlpfqm79 Depression Bpogrcmgz945Tobacco Prwvumjfx48606/Pap Smear11//12/2023, 06/20/2023 Medical Devices Not on file Insurance * Guarantor: Michelle Rivera TypeRelation to PatientDate of BirthPhone Billing AddressPersonal/LosnaoPrjq1985 [address] [phone] Advance Directives * Full Code (Latest Code Status on File) Date ActivatedDate InactivatedComments11/28/2022 9:55 AM11/28/2022 10:32 PM Care Teams Team MemberRelationshipSpecialtyStart DateEnd Date Nikki Koenig APRN-AC [address] [place] [address], [facility] [place] [address] PCP - GeneralNurse Practitioner01/16/24
--- OUTSIDE RECORDS SUMMARY | 2025-07-12 20:27 | XMS_ITS | Clinical Summary ---
Author Organization [facility] Address [address] [place] [address], [address] [place] [address] Care Team Providers Care Manager Target Name Role Phone Bubba Cortes MD Primary Care Provider + Allergies Active AllergyReactionsCriticalityNoted OyowKazyrafgHdantopcevk08/12/2014Sulfa Lffslxpnhew93/12/2014 Medications MedicationSigDispense QuantityRefillsLast FilledStart DateEnd DateStatus Ascorbic [...] RecordedSex Assigned at BirthNot on file Legal EvkBhphog17/10/2013 10:02 AM ESTGender IdentityNot on fileSexual OrientationNot on file Last Filed Vital Signs Vital SignReadingTime TakenCommentsBlood Ievjhpbz567/77009/30/2014 2:07 PM EST Rrlbw789509/30/2014 2:07 PM GVNTfxopdkaaoe55.1 ??C (96.9 ??F)09/30/2014 2:07 PM ESTRespiratory Tjqn469309/30/2014 2:07 PM ESTOxygen Hgnehwpjxu827%09/30/2014 2:07 PM ESTInhaled Oxygen Concentration--Xagnfr38.2 kg (179 lb)09/30/2014 2:07 PM EST Qpzxjr208.1 cm (5' 5 )09/30/2014 2:07 PM ESTBody Mass Index29.7909/30/2014 2:07 PM EST Plan of Treatment Not on file Care Teams Team MemberRelationshipSpecialtyStart DateEnd Date Bubba Cortes MD PCP - Ocqnixy31/12/14
--- OUTSIDE RECORDS SUMMARY | 2025-07-12 20:27 | XMS_ITS | Clinical Summary ---
Author Organization [facility] Address [address] [place] [place] [address] Care Team Providers Care Ruby On Rails Web Developer Name Role Phone Nita Oneil MD Primary Care Provider [phone] Allergies Active AllergyReactionsCriticalityNoted DateCommentsPenicillin GHives,Swelling High06/16/2018PenicillinsHives,Swelling,BxltfskFznj33/15/2018Sulfa Antibiotics Hives,Swelling,GbluaygPhcq51/15/2018 Ophthalmic agents Sulfamethoxazole-TrimethoprimHives,YasnhtepXiam42/15/1688Uofwoj47/14/2024 Other Reaction(s): Hives Medications MedicationSigDispense QuantityRefillsLast FilledStart [...] ONE CAPSULE IN THE EVENING DAILY AT NKXIBRF7704/02/2025tive Calcium Citrate+D3 Petites 200-6.25 MG-MCG tablet Take [...] THE MORNING.07/12/2025Discontinued Active Problems ProblemNoted DateDiagnosed DateHPV kpvlrzac06/28/2025Nexplanon nrynqcj6107/28/2024 Lumbar paraspinal muscle spasm03/14/2023Lumbar hdoeuaxumwsmg46/13/2023 Encounters DateTypeDepartmentCare WnrbDrdveadfooc88/10/2025 2:20 PM ESTProcedure Visit [facility] [address] [facility] [place] [address] Kirby Heredia, Well woman exam with routine gynecological exam; Sexually transmitted disease dstahcsy55/10/2025amboo flowsheet [facility] [address] [facility] [place] [address] Kirby Heredia DO 04/29/2025 8:40 AM EDTOffice Visit [facility] [address] [facility] [place] [address] Kirby Heredia, HPV exposure; Menorrhagia with irregular cycle04/29/2025amboo flowsheet [facility] [address] [facility] [place] [address] Kirby Heredia, from Last 3 Months Family [...] ValueDate RecordedSex Assigned at BirthNot on fileLegal KcvCgherp45/15/2023 7:10 PM EDTGender IdentityNot on fileSexual OrientationNot on file Last Filed Vital Signs Vital SignReadingTime TakenCommentsBlood Busekhvi465/8207/12/2025 2:36 PM EST Cvobz825908/13/2024 1:12 PM ZGLNznpevazqda98.7 ??C (98 ??F)08/13/2024 1:12 PM EST Respiratory Yvjm5870 1:12 PM ESTOxygen Dribitspka25%08/13/2024 1:12 PM ESTInhaled Oxygen Concentration--Tfzdbm39.9 kg (140 lb 12.8 oz)07/12/2025 2:36 PM UVIPsvsoc086.4 cm (5' 5.5 )07/22/2024 11:37 AM ESTBody Mass Index23.07 07/22/2024 11:37 AM EST Plan of Treatment DateTypeDepartmentCare Team (Latest Contact Info)Gmcstrbjhcs18/17/2025 2:20 PM ESTConsult [facility] [address] [place] [address] [place] [address] Kirby Heredia, DO [address] [facility] [place] [address] 08/01/2026 8:30 AM ESTProcedure Visit [facility] [address] [place] [address] [place] [address] Kirby Heredia, DO [address] [place] [address] Insurance MemberSubscriberPlan / Payer (Effective 2024-Present)Name:Michelle Guzman Emely Relation to Subscriber:SelfName:Michelle Guzman Emely Payer ID:Not on file Group ID:[id number] Type:Not on file Address: [address] Care Teams Team MemberRelationshipSpecialtyStart DateEnd Date Nita Oneil MD [address] [facility] [place] [address] PCP - GeneralFamily Vzyorxza94/20/24
== END 2025-07-12 20:20 | disposition home or self-care (01) ==
LOC: LAB 20:19
PROVIDERS: Visit Provider Obstetrics & Gynecology
DX: Z01.419 Encounter for gynecological examination (general) (routine) without abnormal findings (principal)